=== PATIENT | male | born 1965 | race Caucasian/White ===

== ENCOUNTER 2016-11-21 15:37 | Emergency (ER) | payer BC, OTHER ==
[~2016-11-21] VITALS: Ht 177.8 cm; Wt 88.5 kg
[~2016-11-21 15:37] MED LIST changes: -ISOVUE-M 300 61% 15ML VIAL (Q9967) As Ordered ONE; -LIDOCAINE 1% SDV INJ 30 ML VIAL As Ordered ONE; -diazePAM 5 MG TAB As Ordered ONE; -methylPREDNISolone SUSP 40 MG/ML (DEPO-medrol) VIAL (J1030) As Ordered ONE; -oxyCODONE 5MG TAB As Ordered ONE
[2016-11-21] MEDS ORDERED: NITROGLYCERIN 0.4 MG SUBL TABLET As Ordered ONE (16:01)
[2016-11-21] MEDS ORDERED: ASPIRIN 81 MG CHEW TABLET As Ordered ONE (16:01)
[2016-11-21] MEDS ORDERED: ONDANSETRON 4MG/2ML VIAL (J2405) As Ordered ONE (16:15)
[2016-11-21 16:20] LABS: BASO # 0.1 K/mm3 (0.0-0.2); BASO % 1.1 % (0.0-1.0); EOS # 0.1 K/mm3 (0.0-0.50); EOS % 1.8 % (0.0-3.0); LARGE UNSTAINED CELL # 0.1 K/mm3 (0.0-0.4); LARGE UNSTAINED CELL % 1.3 % (0.0-4.0); LYMPH # 1.5 K/mm3 (1.5-4.5); LYMPH % 22.3 % (24.0-44.0); MEAN CORPUSCULAR HEMOGLOBIN 28.7 pg (27.0-33.0); MEAN CORPUSCULAR HGB CONC 34.2 g/dl (32.0-36.5); MEAN CORPUSCULAR VOLUME 83.8 fl (80.0-96.0); MONO # 0.3 K/mm3 (0.0-0.8); MONO % 4.2 % (0.0-5.0); NEUTROPHILS # 4.4 K/mm3 (1.8-7.7); NEUTROPHILS % 69.4 % (36.0-66.0); PLATELET COUNT, AUTOMATED 185 k/mm3 (150-450); RED CELL DISTRIBUTION WIDTH 13.1 % (11.5-14.5); WHITE BLOOD COUNT 6.3 K/mm3 (4.0-10.0)
--- NOTE | 2016-11-21 16:21 | REP ---
Clinical: Chest pain . Comparison: 11/27/2015 . Findings: The mediastinum and cardiac silhouette are stable and within normal limits for portable technique. The lung patel are clear without acute consolidation, effusion, or pneumothorax. Skeletal structures are intact. Impression: Normal portable chest x-ray Signed by Giovanni Key MD 11/21/2016 04:12 P
[2016-11-21 16:27] LABS: INR 0.94
[2016-11-21 16:39] LABS: ANION GAP 7 MEQ/L (8-16); BLOOD UREA NITROGEN 14 MG/DL (7-18); CALCIUM LEVEL 8.7 MG/DL (8.5-10.1); CARBON DIOXIDE LEVEL 30 MEQ/L (21-32); CHLORIDE LEVEL 102 MEQ/L (98-107); CREATININE FOR GFR 0.96 MG/DL (0.70-1.30); GLOMERULAR FILTRATION RATE > 60.0 (>56); GLUCOSE, FASTING 243 MG/DL (70-105); POTASSIUM SERUM 3.8 MEQ/L (3.5-5.1); SODIUM LEVEL 139 MEQ/L (136-145)
[2016-11-21] MEDS ORDERED: tiZANidine 4 MG TAB PO ONE (16:45)
[2016-11-21] MEDS ORDERED: tiZANidine 4 MG TAB As Ordered ONE (16:54)
--- NOTE | 2016-11-21 22:21 | EDDOCDS ---
Physician Documentation [facility] Name: Godfrey Lopez Age: 51 yrs Sex: Male : 1965 Arrival Date: 11/21/2016 Time: 15:37 Bed OBSERVATION Private MD: Nory Motley E Disposition: 11/21/16 21:41 Discharged to Home/Self Care. Impression: Chest pain, unspecified. - Condition is Stable. - Discharge Instructions: Nonspecific Chest Pain. - Medication Reconciliation, Local Pharmacy Hours form. - Follow up: Nory Motley; When: 4 - 5 days; Reason: Recheck today's complaints, Continuance of care. - Problem is an acute exacerbation. - Symptoms have improved. Historical: - Allergies: no known allergies; - Home Meds: 1. flecainide 50 mg Oral tab 1 tab every 12 hours 2. aspirin 81 mg Oral chew 1 tab once daily 3. bisoprolol fumarate 5 mg oral tab 1 tab nightly 4. Vitamin B-12 500 mcg Oral tab 500 mcg daily 5. Vitamin D Oral 5000 unit daily 6. Proscar 5 mg Oral tab 1 tab once daily 7. magnesium oxide 400 mg Oral tab daily 8. metformin 500 mg Oral tab 2 times per day 9. Prilosec 40 mg Oral cpDR 1 cap once daily 10. valsartan 80 mg oral cap nightly 11. citracal petites 2 tab nightly 12. multivitamin Oral tab 2 tab daily 13. Lipitor 20 mg Oral tab 1 tab nightly 14. gabapentin 300 mg Oral tab nightly 15. tizanidine 2 mg oral tab as needed 16. Percocet 5-325 mg Oral tab 1 tab every 4-6 hours 17. colchicine 0.6 mg Oral tab as needed 18. gabapentin 100 mg Oral cap 1 tab daily 19. citalopram 10 mg Oral tab 1 tab once daily - PMHx: Atrial Fib; Migraines; Guillain Sarah Ann Syndrome; Hypertension; GERD; Diabetes - NIDDM: controlled; - PSHx: Gastric Bypass; ORIF left arm; bilateral knees; Exploratory lap; - Social history: Smoking status: Patient states was never smoker of tobacco. No barriers to communication noted, The patient speaks fluent Persian. - Family history: Not pertinent. - : The pt / caregiver states he / she is not on anticoagulants. The pt / caregiver states he / she is not on anticoagulants. Home medication list is obtained from family members. - Exposure Risk Screening:: None identified. Vital Signs: 11/21 15:39 BP 188 / 106 LA Sitting (auto/lg); Pulse 78; Resp 18; Temp 96.7(O); Pulse Ox 99% ; cmb Weight 88.45 kg / 195 lbs (R); Height 5 ft. 10 in. (177.80 cm) (R); Pain 3/10; 15:39 BP 187 / 115 RA Sitting (auto/lg); cmb 15:52 BP 185 / 104 RA Sitting (man/reg); jrd 16:15 BP 145 / 82; Pulse 71; Pain 3/10; ld5 16:22 BP 137 / 91; Pulse 70; Resp 16; Pain 3/10; ld5 16:53 BP 132 / 94 (auto/); ld5 16:53 Pulse 60 MON; Pulse Ox 94% ; ld5 17:47 BP 121 / 61 (auto/); ld5 17:47 Pulse 60 MON; Pulse Ox 95% ; ld5 18:02 BP 105 / 59 (auto/); ld5 18:02 Pulse 58 MON; Pulse Ox 94% ; ld5 18:17 BP 109 / 62 (auto/); ld5 18:17 Pulse 60 MON; Pulse Ox 93% ; ld5 18:32 BP 100 / 63 (auto/); ld5 18:32 Pulse 58 MON; Pulse Ox 94% ; ld5 18:47 BP 103 / 57 (auto/); ld5 18:47 Pulse 58 MON; Pulse Ox 94% ; ld5 22:03 BP 163 / 71 RA Supine (auto/reg); Pulse 58 MON; Resp 18 S; Temp 97.4(O); Pulse Ox 96% cln on R/A; Pain 0/10; 15:39 Body Mass Index 27.98 (88.45 kg, 177.80 cm) cmb MDM: 15:56 Aspirin Chewable Tablet 324 mg PO once ordered. ke 15:56 NS 0.9% 1000 ml IV at 100 mL/hr continuous ordered. ke 15:56 Nitrostat 0.4 mg Sublingual every 5 minutes; hold if SBP<90mmHg.Document Pain Score ke Response to Each Dose x3 ordered. 15:56 Bricklayer/Pulse Ox/q 30 min VS ordered. ke 15:56 IV Saline Lock ordered. ke 15:56 Rhythm Strip to chart ordered. ke 15:56 Undress patient appropriately for examination ordered. ke 15:57 Basic Metabolic Profile Ordered. EDMS 15:57 CBC with Diff Ordered. EDMS 15:57 Cardiac Injury Profile Ordered. EDMS 15:57 Prothrombin Time Profile\E\INR Ordered. EDMS 15:57 Troponin Ordered. EDMS 15:57 portable chest Ordered. EDMS 15:59 ECG WITH READING ER PHYS+CARDIAG ordered. EDMS 16:26 tiZANidine 4 mg PO once ordered. ke 16:31 Accucheck ordered. ld5 16:31 Ondansetron 4 mg IVP once ordered. ld5 16:32 Fingerstick Blood Sugar Ordered. EDMS 17:10 Basic Metabolic Profile Reviewed. ke 17:10 CBC with Diff Reviewed. ke 17:10 Cardiac Injury Profile Reviewed. ke 17:10 Fingerstick Blood Sugar Reviewed. ke 17:10 Prothrombin Time Profile\E\INR Reviewed. ke 17:10 Troponin Reviewed. ke 17:10 portable chest Reviewed. ke 17:25 Repeat EKG (put time details section) ordered. ke 17:25 Redraw CIP &Troponin (put time in details section) ordered. ke 17:27 Repeat EKG (put time details section) complete. deg 17:27 Redraw CIP &Troponin (put time in details section) complete. deg 17:28 ECG WITH READING ER PHYS ordered. EDMS 17:29 CARDIAC MARKER PANEL Ordered. EDMS 18:06 Financial registration complete. [id number] 18:13 [facility] [place] was scanned into [employer] and attached to record. ks16 21:36 CARDIAC MARKER PANEL Reviewed. Point of Care Testing: Blood Glucose: 16:31 Blood Glucose: 223 mg/dL; ld5 Ranges: Administered Medications: 16:10 Drug: Aspirin 324 mg [aspirin 81 mg chewable tablet (4 tabs)] Route: PO; ld5 16:10 Drug: Nitrostat 0.4 mg [Nitrostat 0.4 mg sublingual tablet (1 tabs)] Route: Sublingual; ld5 16:15 Follow up: BP 145 / 82; Pulse 71 bpm; Pain 3/10 Adult; Response: No significant change. ld5 16:15 Drug: NS 0.9% 1000 ml [sodium chloride 0.9 % intravenous solution] Route: IV; Rate: 100 ld5 mL/hr; Site: right forearm; 16:16 Drug: Nitrostat 0.4 mg [Nitrostat 0.4 mg sublingual tablet (1 tabs)] Route: Sublingual; ld5 16:22 Follow up: BP 137 / 91; Pulse 70 bpm; Resp 16 bpm; Pain 3/10 Adult; Response: No ld5 significant change. 16:17 Drug: Ondansetron 4 mg [ondansetron HCl 2 mg/mL intravenous solution (2 mL)] Route: ld5 IVP; Site: right forearm; 19:56 Follow up: Response: No significant change. cf2 16:23 Drug: Nitrostat 0.4 mg [Nitrostat 0.4 mg sublingual tablet (1 tabs)] Route: Sublingual; ld5 17:01 Drug: tiZANidine 4 mg [tizanidine 4 mg tablet (1 tabs)] Route: PO; ld5 19:57 Follow up: Response: No significant change. cf2 Signatures: Dispatcher [employer] EDMS Ladan Diamond, Supervisor Show Operations Unit deg Joaquin Monreal, CORE WINDER MACHINE OPERATOR CORE WINDER MACHINE OPERATOR Nory Diamond,RN RN ld5 Jen Ruiz RN RN mk4 Romelia Muñoz, Reg Reg ks16 Dawna Otoole,RN RN cf2 The chart was reviewed and I authenticate all verbal orders and agree with the evaluation and treatment provided.Attachments: 18:13 [facility] Payment Agreement ks16 MTDD
--- NOTE | 2016-11-21 22:21 | EDDOCDS ---
Nurse's Notes [facility] Name: Godfrey Lopez Age: 51 yrs Sex: Male : 1965 Arrival Date: 11/21/2016 Time: 15:37 Bed OBSERVATION Private MD: Nory Motley E Diagnosis: Chest pain, unspecified Presentation: 11/21 15:45 Presenting complaint: Patient states: I" i guess my blood pressure is high tight chest mk4 and heavy, pt was just in pain clinic having an epidural and upon discharge he became semi responsive and tremor in leftb hand , hx andre barre when he gets fatigued he gets shaky. 15:47 Adult Sepsis Screening: The patient does not have new or worsening altered mentation. mk4 Patient's respiratory rate is less than 22. Systolic blood pressure is greater than 100. Patient has a qSOFA score of 0- Negative Sepsis Screen. Suicide/Homicide risk assessment- the patient denies having any suicidal and/or homicidal ideations and does not present with any other emotional, behavioral or mental health complaints. Status: Patient is not a financial services representative or dependent. Transition of care: patient was not received from another setting of care. Red Flag criteria, patient assessed and taken directly to a bed. 15:47 Acuity: BERNABE Level 2 mk4 15:47 Method Of Arrival: Wheelchair mk4 Triage Assessment: 16:02 General: Appears ill. HIV screening NA for this visit Offered previously. mk4 Historical: - Allergies: no known allergies; - Home Meds: 1. flecainide 50 mg Oral tab 1 tab every 12 hours 2. aspirin 81 mg Oral chew 1 tab once daily 3. bisoprolol fumarate 5 mg oral tab 1 tab nightly 4. Vitamin B-12 500 mcg Oral tab 500 mcg daily 5. Vitamin D Oral 5000 unit daily 6. Proscar 5 mg Oral tab 1 tab once daily 7. magnesium oxide 400 mg Oral tab daily 8. metformin 500 mg Oral tab 2 times per day 9. Prilosec 40 mg Oral cpDR 1 cap once daily 10. valsartan 80 mg oral cap nightly 11. citracal petites 2 tab nightly 12. multivitamin Oral tab 2 tab daily 13. Lipitor 20 mg Oral tab 1 tab nightly 14. gabapentin 300 mg Oral tab nightly 15. tizanidine 2 mg oral tab as needed 16. Percocet 5-325 mg Oral tab 1 tab every 4-6 hours 17. colchicine 0.6 mg Oral tab as needed 18. gabapentin 100 mg Oral cap 1 tab daily 19. citalopram 10 mg Oral tab 1 tab once daily - PMHx: Atrial Fib; Migraines; Guillain Browning Syndrome; Hypertension; GERD; Diabetes - NIDDM: controlled; - PSHx: Gastric Bypass; ORIF left arm; bilateral knees; Exploratory lap; - Social history: Smoking status: Patient states was never smoker of tobacco. No barriers to communication noted, The patient speaks fluent Khmer. - Family history: Not pertinent. - : The pt / caregiver states he / she is not on anticoagulants. The pt / caregiver states he / she is not on anticoagulants. Home medication list is obtained from family members. - Exposure Risk Screening:: None identified. Screenin:18 Screening information is obtained from the patient. Fall risk: No risks identified. cf2 Assistance ADL's: requires no assistance with activities of daily living. Abuse/DV Screen: The patient / caregiver reports he/she is: not in a situation that causes fear, pain or injury. Nutritional screening: No deficits noted. Advance Directives: Further advance directive information is declined. home support is adequate. Assessment: 16:00 General: Appears in no apparent distress, Behavior is cooperative, drowsy. Pain: ld5 Location: head and anterior aspect of left upper chest Pain currently is 3 out of 10 on a pain scale. Pain does not radiate. 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 Neurological: Level of Consciousness is lethargic, obeys commands, Oriented to person, place, time, Inspector Repairer are weak on left Weakness in left hand's) leg(s) foot/feet Speech is slurred. Respiratory: Airway is patent Respiratory effort is even, unlabored, Denies cough, shortness of breath. GI: Abdomen is non- distended Bowel sounds present X 4 quads. Denies nausea, vomiting. Derm: Skin is intact, Skin is dry, Skin is normal, Skin temperature is warm. 16:20 General: Pt states "I don't feel well. I'm going to be sick." Emesis bag provided. ld5 Provider made aware and pt medicated. Supportive daughter at bedside. Call hugo within reach. Will continue to monitor. 16:25 General: Daughter states that when pt presents with left-sided weakness it has been ld5 because his blood glucose is low or he is having a migraine headache. Pt reports a slight headache. Daughter reports pt usually takes 4 mg of Tizanidine at this time so symptoms do not get worse. Discussed with provider. 16:30 General: After 3rd nitro pt reports decreased pain. BP steadily decreasing as well. Pt ld5 denies any needs. Fluids infusing. Will continue to monitor. 17:25 General: Pt laying in bed. Remains drowsy. Family at bedside. Provider it to speak with ld5 pt and family regarding repeat blood work at 2100. Pt and family deny any needs at this time. Call hugo within reach. Will continue to monitor. 18:05 General: Appears in no apparent distress. Neurological: Level of Consciousness is ld5 awake, obeys commands. Respiratory: Airway is patent Respiratory effort is even, unlabored. 18:51 General: Pt laying comfortably in bed watching TV. Reports "feeling better". Family ld5 members remain at bedside. Aware of plan for 2100 repeats. Will continue to monitor. 22:18 Reassessment: Patient appears in no apparent distress at this time. Patient denies pain cf2 at this time. Patient states feeling better. Patient states symptoms have improved. Vital Signs: 15:39 BP 188 / 106 LA Sitting (auto/lg); Pulse 78; Resp 18; Temp 96.7(O); Pulse Ox 99% ; cmb Weight 88.45 kg (R); Height 5 ft. 10 in. (177.80 cm) (R); Pain 3/10; 15:39 BP 187 / 115 RA Sitting (auto/lg); cmb 15:52 BP 185 / 104 RA Sitting (man/reg); jrd 16:15 BP 145 / 82; Pulse 71; Pain 3/10; ld5 16:22 BP 137 / 91; Pulse 70; Resp 16; Pain 3/10; ld5 16:53 BP 132 / 94 (auto/); ld5 16:53 Pulse 60 MON; Pulse Ox 94% ; ld5 17:47 BP 121 / 61 (auto/); ld5 17:47 Pulse 60 MON; Pulse Ox 95% ; ld5 18:02 BP 105 / 59 (auto/); ld5 18:02 Pulse 58 MON; Pulse Ox 94% ; ld5 18:17 BP 109 / 62 (auto/); ld5 18:17 Pulse 60 MON; Pulse Ox 93% ; ld5 18:32 BP 100 / 63 (auto/); ld5 18:32 Pulse 58 MON; Pulse Ox 94% ; ld5 18:47 BP 103 / 57 (auto/); ld5 18:47 Pulse 58 MON; Pulse Ox 94% ; ld5 22:03 BP 163 / 71 RA Supine (auto/reg); Pulse 58 MON; Resp 18 S; Temp 97.4(O); Pulse Ox 96% cln on R/A; Pain 0/10; 15:39 Body Mass Index 27.98 (88.45 kg, 177.80 cm) cmb Vitals: 15:39 Log In Time: November 21, 2016 at 15:37. cmb ED Course: 15:39 Patient visited by Chiquita Freeman. cmb 15:39 Nory Motley is Private Physician. cmb 15:39 Patient moved to Waiting cmb 15:43 RN notified that patient meets Red Flag criteria. cmb 15:43 Patient moved to Pre RCE cmb 15:47 Patient moved to 5 js13 15:49 Triage Initiated mk4 15:50 [facility] ke 15:50 Patient visited by Joaquin Monreal FNP. ke 15:50 Patient visited by Joaquin Monreal FNP. ke 15:52 Patient visited by Roby Naqvi PCA. jrd 16:05 Patient visited by Khalida Silva. dem1 16:05 EKG done. (by ED staff). Reviewed by Joaquin RESENDIZ. dem1 16:32 Patient visited by Nory Sanchez,PRICE. ld5 16:34 Fingerstick Blood Sugar Sent. ld5 16:45 portable chest Returned. EDMS 17:10 Patient visited by Joaquin Monreal FNP. ke 17:16 Patient visited by Nory Sanchez,RN. ld5 17:26 Patient visited by Nory Sanchez,RN. ld5 17:58 Patient visited by Nory Sanchez,RN. ld5 18:13 [facility] Payment Agreement was scanned into [employer] and attached to record. ks16 18:29 Patient visited by Joaquin Monreal FNP. ke 18:52 Patient visited by Nory Sanchez,PRICE. ld5 18:52 Patient visited by Nory Sanchez RN. ld5 19:02 Patient visited by Teddy Castro PCA. kb5 19:08 Dawna Otoole,PRICE is Primary Nurse. cf2 19:08 Patient visited by Dawna Otoole,PRICE. cf2 19:42 Patient visited by Joaquin Monreal FNP. ke 20:06 Patient visited by Joaquin Monreal FNP. ke 20:15 Patient visited by Dawna Otoole RN. cf2 20:45 Patient visited by Joaquin Monreal FNP. ke 21:02 Patient moved to OBSERVATION nov 21:03 CARDIAC MARKER PANEL Sent. ls3 21:03 EKG done. (by ED staff). Reviewed by Joaquin RESENDIZ. ls3 21:41 Nory Motley is Referral Physician. ke 21:56 Patient visited by Teddy Castro PCA. kb5 22:04 Patient visited by Amanda Batista PCA. cln 22:18 Patient visited by Dawna Otoole RN. cf2 22:18 The patient / caregiver is instructed regarding the plan of care and ED course. Patient cf2 has correct armband on for positive identification. Placed in gown. Bed in low position. Call light in reach. Side rails up X 1. Side rails up X2. Adult w/ patient. telemetry monitor on. Pulse ox on. NIBP on. 22:18 Discontinued lock. No procedures done that require assistance. cf2 22:20 Chance Shaffer DO is Attending Physician. cf2 Administered Medications: 16:10 Drug: Aspirin 324 mg [aspirin 81 mg chewable tablet (4 tabs)] Route: PO; ld5 16:10 Drug: Nitrostat 0.4 mg [Nitrostat 0.4 mg sublingual tablet (1 tabs)] Route: Sublingual; ld5 16:15 Follow up: BP 145 / 82; Pulse 71 bpm; Pain 3/10 Adult; Response: No significant change. ld5 16:15 Drug: NS 0.9% 1000 ml [sodium chloride 0.9 % intravenous solution] Route: IV; Rate: 100 ld5 mL/hr; Site: right forearm; 16:16 Drug: Nitrostat 0.4 mg [Nitrostat 0.4 mg sublingual tablet (1 tabs)] Route: Sublingual; ld5 16:22 Follow up: BP 137 / 91; Pulse 70 bpm; Resp 16 bpm; Pain 3/10 Adult; Response: No ld5 significant change. 16:17 Drug: Ondansetron 4 mg [ondansetron HCl 2 mg/mL intravenous solution (2 mL)] Route: ld5 IVP; Site: right forearm; 19:56 Follow up: Response: No significant change. cf2 16:23 Drug: Nitrostat 0.4 mg [Nitrostat 0.4 mg sublingual tablet (1 tabs)] Route: Sublingual; ld5 17:01 Drug: tiZANidine 4 mg [tizanidine 4 mg tablet (1 tabs)] Route: PO; ld5 19:57 Follow up: Response: No significant change. cf2 Point of Care Testing: Blood Glucose: 16:31 Blood Glucose: 223 mg/dL; ld5 Ranges: Order Results: Lab Order: Basic Metabolic Profile; SPEC'M 11/21/16 15:58 Test: GLUCOSE, FASTING; Value: 243; Range: 70-105; Abnormal: Above high normal; Units: MG/DL; Status: F Test: BLOOD UREA NITROGEN; Value: 14; Range: 7-18; Units: MG/DL; Status: F Test: CREATININE FOR GFR; Value: 0.96; Range: 0.70-1.30; Units: MG/DL; Status: F Test: GLOMERULAR FILTRATION RATE; Value: > 60.0; Range: >56; Status: F Test: SODIUM LEVEL; Value: 139; Range: 136-145; Units: MEQ/L; Status: F Test: POTASSIUM SERUM; Value: 3.8; Range: 3.5-5.1; Units: MEQ/L; Status: F Test: CHLORIDE LEVEL; Value: 102; Range: 98-107; Units: MEQ/L; Status: F Test: CARBON DIOXIDE LEVEL; Value: 30; Range: 21-32; Units: MEQ/L; Status: F Test: ANION GAP; Value: 7; Range: 8-16; Abnormal: Below low normal; Units: MEQ/L; Status: F Test: CALCIUM LEVEL; Value: 8.7; Range: 8.5-10.1; Units: MG/DL; Status: F Test Note: ; Units are mL/min/1.73 m2 Chronic Kidney Disease Staging per NKF: Stage I & II GFR >=60 Normal to Mildly Decreased Stage III GFR 30-59 Moderately Decreased Stage IV GFR 15-29 Severely Decreased Stage V GFR <15 Very Little GFR Left ESRD GFR <15 on ADULT CAREGIVER Lab Order: CBC with Diff; SPEC'M 11/21/16 15:58 Test: WHITE BLOOD COUNT; Value: 6.3; Range: 4.0-10.0; Units: K/mm3; Status: F Test: RED BLOOD COUNT; Value: 5.18; Range: 4.30-6.10; Units: M/mm3; Status: F Test: HEMOGLOBIN; Value: 14.9; Range: 14.0-18.0; Units: g/dl; Status: F Test: HEMATOCRIT; Value: 43.5; Range: 42.0-52.0; Units: %; Status: F Test: MEAN CORPUSCULAR VOLUME; Value: 83.8; Range: 80.0-96.0; Units: fl; Status: F Test: MEAN CORPUSCULAR HEMOGLOBIN; Value: 28.7; Range: 27.0-33.0; Units: pg; Status: F Test: MEAN CORPUSCULAR HGB CONC; Value: 34.2; Range: 32.0-36.5; Units: g/dl; Status: F Test: RED CELL DISTRIBUTION WIDTH; Value: 13.1; Range: 11.5-14.5; Units: %; Status: F Test: PLATELET COUNT, AUTOMATED; Value: 185; Range: 150-450; Units: k/mm3; Status: F Test: NEUTROPHILS %; Value: 69.4; Range: 36.0-66.0; Abnormal: Above high normal; Units: %; Status: F Test: LYMPH %; Value: 22.3; Range: 24.0-44.0; Abnormal: Below low normal; Units: %; Status: F Test: MONO %; Value: 4.2; Range: 0.0-5.0; Units: %; Status: F Test: EOS %; Value: 1.8; Range: 0.0-3.0; Units: %; Status: F Test: BASO %; Value: 1.1; Range: 0.0-1.0; Abnormal: Above high normal; Units: %; Status: F Test: LARGE UNSTAINED CELL %; Value: 1.3; Range: 0.0-4.0; Units: %; Status: F Test: NEUTROPHILS #; Value: 4.4; Range: 1.8-7.7; Units: K/mm3; Status: F Test: LYMPH #; Value: 1.5; Range: 1.5-4.5; Units: K/mm3; Status: F Test: MONO #; Value: 0.3; Range: 0.0-0.8; Units: K/mm3; Status: F Test: EOS #; Value: 0.1; Range: 0.0-0.50; Units: K/mm3; Status: F Test: BASO #; Value: 0.1; Range: 0.0-0.2; Units: K/mm3; Status: F Test: LARGE UNSTAINED CELL #; Value: 0.1; Range: 0.0-0.4; Units: K/mm3; Status: F Lab Order: Cardiac Injury Profile; SPEC'M 11/21/16 15:58 Test: CPK CREATINE PHOSPHOKINASE; Value: 36; Range: 39-308; Abnormal: Below low normal; Units: U/L; Status: F Test: CK-MB VALUE MASS; Value: 1.0; Range: 0.0-3.6; Units: NG/ML; Status: F Test: MB/CK RELATIVE INDEX; Value: 2.77; Range: < OR =4; Status: F Test Note: ; DIAGNOSIS CRITERIA MMB ng/ml Relative Index (RI) NON-AMI < or = 5 N/A SALEH ZONE > 5 < or = 4 AMI > 5 > 4 Lab Order: Prothrombin Time Profile\\E\\INR; SPEC'M 11/21/16 15:58 Test: PROTHROMBIN TIME; Value: 12.7; Range: 12.3-14.5; Units: SECONDS; Status: F Test: INR; Value: 0.94; Status: F Test Note: ; THERAPUTIC HUMAN INR VALUES INDICATIONS NORMAL RANGES PROPHYLAXIS/TREATMENT OF: VENOUS THROMBOSIS 2.0-3.0 PULMONARY EMBOLISM 2.0-3.0 PREVENTION OF SYSTEMIC EMBOLISM FROM: TISSUE HEART VALVES 2.0-3.0 ACUTE MYOCARDIAL INFARCTION 2.0-3.0 VALVULAR HEART DISEASE 2.0-3.0 ATRIAL FIBRILLATION 2.0-3.0 MECHANICAL VALVES(HIGH RISK) 2.5-3.5 RECURRENT MYOCARDIAL INFARCTION 2.5-3.5 Lab Order: Troponin; [facility] 11/21/16 15:58 Test: TROPONIN I; Value: < 0.02; Range: < 0.10; Units: NG/ML; Status: F Test Note: ; Troponin I Reference Interval for [employer] LOCI: 99th Percentile= 0.00-0.045 ng/ml Risk Stratification: <= 0.10 ng/ml Decreased Risk for Adverse Clinical Events. 0.10-1.50 ng/ml Increased Risk for Adverse Clinical Events. Evaluation of additional criterion and/or repeat testing in 2-6 hours is suggested to rule out myocardial damage. >= 1.50 ng/ml Indicative of Myocardial Injury. Lab Order: Fingerstick Blood Sugar; [facility] 11/21/16 16:22 Test: BEDSIDE GLUCOSE; Value: 223; Range: 70-105; Abnormal: Above high normal; Units: MG/DL; Status: F Lab Order: CARDIAC MARKER PANEL; [facility] 11/21/16 20:57 Test: CPK CREATINE PHOSPHOKINASE; Value: 29; Range: 39-308; Abnormal: Below low normal; Units: U/L; Status: F Test: CK-MB VALUE MASS; Value: 1.4; Range: 0.0-3.6; Units: NG/ML; Status: F Test: MB/CK RELATIVE INDEX; Value: 4.82; Range: < OR =4; Abnormal: Above high normal; Status: F Test: TROPONIN I; Value: < 0.02; Range: < 0.10; Units: NG/ML; Status: F Test Note: ; DIAGNOSIS CRITERIA MMB ng/ml Relative Index (RI) NON-AMI < or = 5 N/A SALEH ZONE > 5 < or = 4 AMI > 5 > 4 Radiology Order: portable chest Test: portable chest REASON FOR EXAMINATION: Chest Pain; Clinical: Chest pain .; ; Comparison: 11/27/2015 .; ; Findings:; The mediastinum and cardiac silhouette are stable and within normal limits for; portable technique. The lung patel are clear without acute consolidation,; effusion, or pneumothorax. Skeletal structures are intact.; ; Impression:; Normal portable chest x-ray; ; ; Signed by; Giovanni Key MD 11/21/2016 04:12 P; Outcome: 21:41 Discharge ordered by Provider. ke 22:18 Discharge Assessment: Patient awake, alert and oriented x 3. No cognitive and/or cf2 functional deficits noted. Patient verbalized understanding of disposition instructions. Patient awake and alert. patient administered narcotics - no. The following High Risk Discharge criteria are identified: None. Discharged to home ambulatory. Condition: stable Condition: improved. No special radiology studies were completed. Property :Personal belongings accompany Pt. 22:20 Patient left the ED. cf2 Signatures: Dispatcher [employer] EDMS Chandrika Roman, RN RN Joaquin Goodwin, FLIGHT DATA TECHNICIAN FLIGHT DATA TECHNICIAN Teddy Villasenor, NEONATAL SOCIAL WORKER NEONATAL SOCIAL WORKER kb5 Nory Sanchez,RN RN ld5 Khalida Silva JenniferRN RN [id number] Chiquita Freeman Margaret RN RN mk4 Roby Naqvi, NEONATAL SOCIAL WORKER NEONATAL SOCIAL WORKER Sarah Hussein, NEONATAL SOCIAL WORKER NEONATAL SOCIAL WORKER [email or web address] Romelia Muñoz, Reg Reg [email or web address] Amanda Batista, NEONATAL SOCIAL WORKER NEONATAL SOCIAL WORKER marilynn Dawna Otoole,RN RN cf2 Corrections: (The following items were deleted from the chart) 15:49 15:45 Presenting complaint: Patient states: I guess blood pressure is high tight chest mk4 and heavy mk4 MTDD
--- NOTE | 2016-11-22 08:28 | ECGEPIP ---
Stationary ECG Study [facility] - ED Test Date: 2016-11-21 Pat Name: HAI DAIGLE Department: Room: - Gender: M Nurse Monitoring: arturo : 1965 Requested By: MAI RESENDIZ Order Number: [id number] Reading MD: Jarrod Adair Measurements Intervals [place] Rate: 65 P: 71 TN: 159 QRS: 25 QRSD: 96 T: 35 QT: 413 QTc: 430 Interpretive Statements SINUS RHYTHM PRIOR INFERIOR INFARCT Electronically Signed On 11-22-2016 8:27:49 EST by Jarrod Adair
--- NOTE | 2016-11-22 08:37 | ECGEPIP ---
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
--- NOTE | 2016-11-23 23:21 | EDDOCDS ---
Physician Documentation [facility] Name: Godfrey Lopez Age: 51 yrs Sex: Male : 1965 Arrival Date: 11/21/2016 Time: 15:37 Bed OBSERVATION Private MD: Nory Motley E Disposition: 11/21/16 21:41 Discharged to Home/Self Care. Impression: Chest pain, unspecified. - Condition is Stable. - Discharge Instructions: Nonspecific Chest Pain. - Medication Reconciliation, Local Pharmacy Hours form. - Follow up: Nory Motley; When: 4 - 5 days; Reason: Recheck today's complaints, Continuance of care. - Problem is an acute exacerbation. - Symptoms have improved. Historical: - Allergies: no known allergies; - Home Meds: 1. flecainide 50 mg Oral tab 1 tab every 12 hours 2. aspirin 81 mg Oral chew 1 tab once daily 3. bisoprolol fumarate 5 mg oral tab 1 tab nightly 4. Vitamin B-12 500 mcg Oral tab 500 mcg daily 5. Vitamin D Oral 5000 unit daily 6. Proscar 5 mg Oral tab 1 tab once daily 7. magnesium oxide 400 mg Oral tab daily 8. metformin 500 mg Oral tab 2 times per day 9. Prilosec 40 mg Oral cpDR 1 cap once daily 10. valsartan 80 mg oral cap nightly 11. citracal petites 2 tab nightly 12. multivitamin Oral tab 2 tab daily 13. Lipitor 20 mg Oral tab 1 tab nightly 14. gabapentin 300 mg Oral tab nightly 15. tizanidine 2 mg oral tab as needed 16. Percocet 5-325 mg Oral tab 1 tab every 4-6 hours 17. colchicine 0.6 mg Oral tab as needed 18. gabapentin 100 mg Oral cap 1 tab daily 19. citalopram 10 mg Oral tab 1 tab once daily - PMHx: Atrial Fib; Migraines; Guillain Helper Syndrome; Hypertension; GERD; Diabetes - NIDDM: controlled; - PSHx: Gastric Bypass; ORIF left arm; bilateral knees; Exploratory lap; - Social history: Smoking status: Patient states was never smoker of tobacco. No barriers to communication noted, The patient speaks fluent [place]ian. - Family history: Not pertinent. - : The pt / caregiver states he / she is not on anticoagulants. The pt / caregiver states he / she is not on anticoagulants. Home medication list is obtained from family members. - Exposure Risk Screening:: None identified. Vital Signs: 11/21 15:39 BP 188 / 106 LA Sitting (auto/lg); Pulse 78; Resp 18; Temp 96.7(O); Pulse Ox 99% ; cmb Weight 88.45 kg / 195 lbs (R); Height 5 ft. 10 in. (177.80 cm) (R); Pain 3/10; 15:39 BP 187 / 115 RA Sitting (auto/lg); cmb 15:52 BP 185 / 104 RA Sitting (man/reg); jrd 16:15 BP 145 / 82; Pulse 71; Pain 3/10; ld5 16:22 BP 137 / 91; Pulse 70; Resp 16; Pain 3/10; ld5 16:53 BP 132 / 94 (auto/); ld5 16:53 Pulse 60 MON; Pulse Ox 94% ; ld5 17:47 BP 121 / 61 (auto/); ld5 17:47 Pulse 60 MON; Pulse Ox 95% ; ld5 18:02 BP 105 / 59 (auto/); ld5 18:02 Pulse 58 MON; Pulse Ox 94% ; ld5 18:17 BP 109 / 62 (auto/); ld5 18:17 Pulse 60 MON; Pulse Ox 93% ; ld5 18:32 BP 100 / 63 (auto/); ld5 18:32 Pulse 58 MON; Pulse Ox 94% ; ld5 18:47 BP 103 / 57 (auto/); ld5 18:47 Pulse 58 MON; Pulse Ox 94% ; ld5 22:03 BP 163 / 71 RA Supine (auto/reg); Pulse 58 MON; Resp 18 S; Temp 97.4(O); Pulse Ox 96% cln on R/A; Pain 0/10; 15:39 Body Mass Index 27.98 (88.45 kg, 177.80 cm) cmb MDM: 15:56 Aspirin Chewable Tablet 324 mg PO once ordered. ke 15:56 NS 0.9% 1000 ml IV at 100 mL/hr continuous ordered. ke 15:56 Nitrostat 0.4 mg Sublingual every 5 minutes; hold if SBP<90mmHg.Document Pain Score ke Response to Each Dose x3 ordered. 15:56 Maritime Officer/Pulse Ox/q 30 min VS ordered. ke 15:56 IV Saline Lock ordered. ke 15:56 Rhythm Strip to chart ordered. ke 15:56 Undress patient appropriately for examination ordered. ke 15:57 Basic Metabolic Profile Ordered. EDMS 15:57 CBC with Diff Ordered. EDMS 15:57 Cardiac Injury Profile Ordered. EDMS 15:57 Prothrombin Time Profile\E\INR Ordered. EDMS 15:57 Troponin Ordered. EDMS 15:57 portable chest Ordered. EDMS 15:59 ECG WITH READING ER PHYS+CARDIAG ordered. EDMS 16:26 tiZANidine 4 mg PO once ordered. ke 16:31 Accucheck ordered. ld5 16:31 Ondansetron 4 mg IVP once ordered. ld5 16:32 Fingerstick Blood Sugar Ordered. EDMS 17:10 Basic Metabolic Profile Reviewed. ke 17:10 CBC with Diff Reviewed. ke 17:10 Cardiac Injury Profile Reviewed. ke 17:10 Fingerstick Blood Sugar Reviewed. ke 17:10 Prothrombin Time Profile\E\INR Reviewed. ke 17:10 Troponin Reviewed. ke 17:10 portable chest Reviewed. ke 17:25 Repeat EKG (put time details section) ordered. ke 17:25 Redraw CIP &Troponin (put time in details section) ordered. ke 17:27 Repeat EKG (put time details section) complete. deg 17:27 Redraw CIP &Troponin (put time in details section) complete. deg 17:28 ECG WITH READING ER PHYS ordered. EDMS 17:29 CARDIAC MARKER PANEL Ordered. EDMS 18:06 Financial registration complete. [email or web address] 18:13 [facility] Payment Agreement was scanned into [employer] and attached to record. [email or web address] 21:36 CARDIAC MARKER PANEL Reviewed. ke 11/22 10:12 T-Sheet-- Draft Copy was scanned into [employer] and attached to record. gb 10:13 ECG/EKG was scanned into [employer] and attached to record. gb Point of Care Testing: Blood Glucose: 11/21 16:31 Blood Glucose: 223 mg/dL; ld5 Ranges: Administered Medications: 16:10 Drug: Aspirin 324 mg [aspirin 81 mg chewable tablet (4 tabs)] Route: PO; ld5 16:10 Drug: Nitrostat 0.4 mg [Nitrostat 0.4 mg sublingual tablet (1 tabs)] Route: Sublingual; ld5 16:15 Follow up: BP 145 / 82; Pulse 71 bpm; Pain 3/10 Adult; Response: No significant change. ld5 16:15 Drug: NS 0.9% 1000 ml [sodium chloride 0.9 % intravenous solution] Route: IV; Rate: 100 ld5 mL/hr; Site: right forearm; 16:16 Drug: Nitrostat 0.4 mg [Nitrostat 0.4 mg sublingual tablet (1 tabs)] Route: Sublingual; ld5 16:22 Follow up: BP 137 / 91; Pulse 70 bpm; Resp 16 bpm; Pain 3/10 Adult; Response: No ld5 significant change. 16:17 Drug: Ondansetron 4 mg [ondansetron HCl 2 mg/mL intravenous solution (2 mL)] Route: ld5 IVP; Site: right forearm; 19:56 Follow up: Response: No significant change. cf2 16:23 Drug: Nitrostat 0.4 mg [Nitrostat 0.4 mg sublingual tablet (1 tabs)] Route: Sublingual; ld5 17:01 Drug: tiZANidine 4 mg [tizanidine 4 mg tablet (1 tabs)] Route: PO; ld5 19:57 Follow up: Response: No significant change. cf2 Signatures: Dispatcher [employer] EDMS Ladan Diamond, Factory Assembler Unit deg Eunice Beavers, Reg Reg gb Joaquin Monreal, FRETTED STRING INSTRUMENT REPAIRER FRETTED STRING INSTRUMENT REPAIRER Nory Diamond RN RN ld5 Jen Ruiz RN RN mk4 Romelia Muñoz, Reg Reg ks16 Dawna Otoole,RN RN cf2 The chart was reviewed and I authenticate all verbal orders and agree with the evaluation and treatment provided.Attachments: 18:13 [facility] Payment Agreement [email or web address] 11/22 10:12 T-Sheet-- Draft Copy gb 10:13 ECG/EKG gb Chart Complete MTDD
--- NOTE | 2016-11-23 23:21 | EDDOCDS ---
Physician Documentation [facility] Name: Godfrey Lopez Age: 51 yrs Sex: Male : 1965 Arrival Date: 11/21/2016 Time: 15:37 Bed OBSERVATION Private MD: Nory Motley E Disposition: 11/21/16 21:41 Discharged to Home/Self Care. Impression: Chest pain, unspecified. - Condition is Stable. - Discharge Instructions: Nonspecific Chest Pain. - Medication Reconciliation, Local Pharmacy Hours form. - Follow up: Nory Motley; When: 4 - 5 days; Reason: Recheck today's complaints, Continuance of care. - Problem is an acute exacerbation. - Symptoms have improved. Historical: - Allergies: no known allergies; - Home Meds: 1. flecainide 50 mg Oral tab 1 tab every 12 hours 2. aspirin 81 mg Oral chew 1 tab once daily 3. bisoprolol fumarate 5 mg oral tab 1 tab nightly 4. Vitamin B-12 500 mcg Oral tab 500 mcg daily 5. Vitamin D Oral 5000 unit daily 6. Proscar 5 mg Oral tab 1 tab once daily 7. magnesium oxide 400 mg Oral tab daily 8. metformin 500 mg Oral tab 2 times per day 9. Prilosec 40 mg Oral cpDR 1 cap once daily 10. valsartan 80 mg oral cap nightly 11. citracal petites 2 tab nightly 12. multivitamin Oral tab 2 tab daily 13. Lipitor 20 mg Oral tab 1 tab nightly 14. gabapentin 300 mg Oral tab nightly 15. tizanidine 2 mg oral tab as needed 16. Percocet 5-325 mg Oral tab 1 tab every 4-6 hours 17. colchicine 0.6 mg Oral tab as needed 18. gabapentin 100 mg Oral cap 1 tab daily 19. citalopram 10 mg Oral tab 1 tab once daily - PMHx: Atrial Fib; Migraines; Guillain [place] Syndrome; Hypertension; GERD; Diabetes - NIDDM: controlled; - PSHx: Gastric Bypass; ORIF left arm; bilateral knees; Exploratory lap; - Social history: Smoking status: Patient states was never smoker of tobacco. No barriers to communication noted, The patient speaks fluent Chinese. - Family history: Not pertinent. - : The pt / caregiver states he / she is not on anticoagulants. The pt / caregiver states he / she is not on anticoagulants. Home medication list is obtained from family members. - Exposure Risk Screening:: None identified. Vital Signs: 11/21 15:39 BP 188 / 106 LA Sitting (auto/lg); Pulse 78; Resp 18; Temp 96.7(O); Pulse Ox 99% ; cmb Weight 88.45 kg / 195 lbs (R); Height 5 ft. 10 in. (177.80 cm) (R); Pain 3/10; 15:39 BP 187 / 115 RA Sitting (auto/lg); cmb 15:52 BP 185 / 104 RA Sitting (man/reg); jrd 16:15 BP 145 / 82; Pulse 71; Pain 3/10; ld5 16:22 BP 137 / 91; Pulse 70; Resp 16; Pain 3/10; ld5 16:53 BP 132 / 94 (auto/); ld5 16:53 Pulse 60 MON; Pulse Ox 94% ; ld5 17:47 BP 121 / 61 (auto/); ld5 17:47 Pulse 60 MON; Pulse Ox 95% ; ld5 18:02 BP 105 / 59 (auto/); ld5 18:02 Pulse 58 MON; Pulse Ox 94% ; ld5 18:17 BP 109 / 62 (auto/); ld5 18:17 Pulse 60 MON; Pulse Ox 93% ; ld5 18:32 BP 100 / 63 (auto/); ld5 18:32 Pulse 58 MON; Pulse Ox 94% ; ld5 18:47 BP 103 / 57 (auto/); ld5 18:47 Pulse 58 MON; Pulse Ox 94% ; ld5 22:03 BP 163 / 71 RA Supine (auto/reg); Pulse 58 MON; Resp 18 S; Temp 97.4(O); Pulse Ox 96% cln on R/A; Pain 0/10; 15:39 Body Mass Index 27.98 (88.45 kg, 177.80 cm) cmb MDM: 15:56 Aspirin Chewable Tablet 324 mg PO once ordered. ke 15:56 NS 0.9% 1000 ml IV at 100 mL/hr continuous ordered. ke 15:56 Nitrostat 0.4 mg Sublingual every 5 minutes; hold if SBP<90mmHg.Document Pain Score ke Response to Each Dose x3 ordered. 15:56 Field Superintendent/Pulse Ox/q 30 min VS ordered. ke 15:56 IV Saline Lock ordered. ke 15:56 Rhythm Strip to chart ordered. ke 15:56 Undress patient appropriately for examination ordered. ke 15:57 Basic Metabolic Profile Ordered. EDMS 15:57 CBC with Diff Ordered. EDMS 15:57 Cardiac Injury Profile Ordered. EDMS 15:57 Prothrombin Time Profile\E\INR Ordered. EDMS 15:57 Troponin Ordered. EDMS 15:57 portable chest Ordered. EDMS 15:59 ECG WITH READING ER PHYS+CARDIAG ordered. EDMS 16:26 tiZANidine 4 mg PO once ordered. ke 16:31 Accucheck ordered. ld5 16:31 Ondansetron 4 mg IVP once ordered. ld5 16:32 Fingerstick Blood Sugar Ordered. EDMS 17:10 Basic Metabolic Profile Reviewed. ke 17:10 CBC with Diff Reviewed. ke 17:10 Cardiac Injury Profile Reviewed. ke 17:10 Fingerstick Blood Sugar Reviewed. ke 17:10 Prothrombin Time Profile\E\INR Reviewed. ke 17:10 Troponin Reviewed. ke 17:10 portable chest Reviewed. ke 17:25 Repeat EKG (put time details section) ordered. ke 17:25 Redraw CIP &Troponin (put time in details section) ordered. ke 17:27 Repeat EKG (put time details section) complete. deg 17:27 Redraw CIP &Troponin (put time in details section) complete. deg 17:28 ECG WITH READING ER PHYS ordered. EDMS 17:29 CARDIAC MARKER PANEL Ordered. EDMS 18:06 Financial registration complete. [email or web address] 18:13 [facility] Payment Agreement was scanned into [employer] and attached to record. [email or web address] 21:36 CARDIAC MARKER PANEL Reviewed. ke 11/22 10:12 T-Sheet-- Draft Copy was scanned into [employer] and attached to record. gb 10:13 ECG/EKG was scanned into [employer] and attached to record. gb Point of Care Testing: Blood Glucose: 11/21 16:31 Blood Glucose: 223 mg/dL; ld5 Ranges: Administered Medications: 16:10 Drug: Aspirin 324 mg [aspirin 81 mg chewable tablet (4 tabs)] Route: PO; ld5 16:10 Drug: Nitrostat 0.4 mg [Nitrostat 0.4 mg sublingual tablet (1 tabs)] Route: Sublingual; ld5 16:15 Follow up: BP 145 / 82; Pulse 71 bpm; Pain 3/10 Adult; Response: No significant change. ld5 16:15 Drug: NS 0.9% 1000 ml [sodium chloride 0.9 % intravenous solution] Route: IV; Rate: 100 ld5 mL/hr; Site: right forearm; 16:16 Drug: Nitrostat 0.4 mg [Nitrostat 0.4 mg sublingual tablet (1 tabs)] Route: Sublingual; ld5 16:22 Follow up: BP 137 / 91; Pulse 70 bpm; Resp 16 bpm; Pain 3/10 Adult; Response: No ld5 significant change. 16:17 Drug: Ondansetron 4 mg [ondansetron HCl 2 mg/mL intravenous solution (2 mL)] Route: ld5 IVP; Site: right forearm; 19:56 Follow up: Response: No significant change. cf2 16:23 Drug: Nitrostat 0.4 mg [Nitrostat 0.4 mg sublingual tablet (1 tabs)] Route: Sublingual; ld5 17:01 Drug: tiZANidine 4 mg [tizanidine 4 mg tablet (1 tabs)] Route: PO; ld5 19:57 Follow up: Response: No significant change. cf2 Signatures: Dispatcher [employer] EDMS Ladan Diamond, Bias Machine Operator Helper Unit deg Eunice Beavers, Reg Reg gb Joaquin Monreal, FLOWER GROWER FLOWER GROWER Nory Diamond RN RN ld5 Jen Ruiz RN RN mk4 Romelia Muñoz, Reg Reg ks16 Dawna Otoole,RN RN cf2 The chart was reviewed and I authenticate all verbal orders and agree with the evaluation and treatment provided.Attachments: 18:13 [facility] Payment Agreement [email or web address] 11/22 10:12 T-Sheet-- Draft Copy gb 10:13 ECG/EKG gb Chart Complete MTDD
--- NOTE | 2016-11-23 23:22 | EDDOCDS ---
Nurse's Notes [facility] Name: Godfrey Lopez Age: 51 yrs Sex: Male : 1965 Arrival Date: 11/21/2016 Time: 15:37 Bed OBSERVATION Private MD: Nory Motley E Diagnosis: Chest pain, unspecified Presentation: 11/21 15:45 Presenting complaint: Patient states: I" i guess my blood pressure is high tight chest mk4 and heavy, pt was just in pain clinic having an epidural and upon discharge he became semi responsive and tremor in leftb hand , hx andre barre when he gets fatigued he gets shaky. 15:47 Adult Sepsis Screening: The patient does not have new or worsening altered mentation. mk4 Patient's respiratory rate is less than 22. Systolic blood pressure is greater than 100. Patient has a qSOFA score of 0- Negative Sepsis Screen. Suicide/Homicide risk assessment- the patient denies having any suicidal and/or homicidal ideations and does not present with any other emotional, behavioral or mental health complaints. 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 Transition of care: patient was not received from another setting of care. Red Flag criteria, patient assessed and taken directly to a bed. 15:47 Acuity: BERNABE Level 2 mk4 15:47 Method Of Arrival: Wheelchair mk4 Triage Assessment: 16:02 General: Appears ill. HIV screening NA for this visit Offered previously. mk4 Historical: - Allergies: no known allergies; - Home Meds: 1. flecainide 50 mg Oral tab 1 tab every 12 hours 2. aspirin 81 mg Oral chew 1 tab once daily 3. bisoprolol fumarate 5 mg oral tab 1 tab nightly 4. Vitamin B-12 500 mcg Oral tab 500 mcg daily 5. Vitamin D Oral 5000 unit daily 6. Proscar 5 mg Oral tab 1 tab once daily 7. magnesium oxide 400 mg Oral tab daily 8. metformin 500 mg Oral tab 2 times per day 9. Prilosec 40 mg Oral cpDR 1 cap once daily 10. valsartan 80 mg oral cap nightly 11. citracal petites 2 tab nightly 12. multivitamin Oral tab 2 tab daily 13. Lipitor 20 mg Oral tab 1 tab nightly 14. gabapentin 300 mg Oral tab nightly 15. tizanidine 2 mg oral tab as needed 16. Percocet 5-325 mg Oral tab 1 tab every 4-6 hours 17. colchicine 0.6 mg Oral tab as needed 18. gabapentin 100 mg Oral cap 1 tab daily 19. citalopram 10 mg Oral tab 1 tab once daily - PMHx: Atrial Fib; Migraines; Guillain [place] Syndrome; Hypertension; GERD; Diabetes - NIDDM: controlled; - PSHx: Gastric Bypass; ORIF left arm; bilateral knees; Exploratory lap; - Social history: Smoking status: Patient states was never smoker of tobacco. No barriers to communication noted, The patient speaks fluent Ukrainian. - Family history: Not pertinent. - : The pt / caregiver states he / she is not on anticoagulants. The pt / caregiver states he / she is not on anticoagulants. Home medication list is obtained from family members. - Exposure Risk Screening:: None identified. Screenin:18 Screening information is obtained from the patient. Fall risk: No risks identified. cf2 Assistance ADL's: requires no assistance with activities of daily living. Abuse/DV Screen: The patient / caregiver reports he/she is: not in a situation that causes fear, pain or injury. Nutritional screening: No deficits noted. Advance Directives: Further advance directive information is declined. home support is adequate. Assessment: 16:00 General: Appears in no apparent distress, Behavior is cooperative, drowsy. Pain: ld5 Location: head and anterior aspect of left upper chest Pain currently is 3 out of 10 on a pain scale. Pain does not radiate. 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 Neurological: Level of Consciousness is lethargic, obeys commands, Oriented to person, place, time, Rubbing Bed Operator are weak on left Weakness in left hand's) leg(s) foot/feet Speech is slurred. Respiratory: Airway is patent Respiratory effort is even, unlabored, Denies cough, shortness of breath. GI: Abdomen is non- distended Bowel sounds present X 4 quads. Denies nausea, vomiting. Derm: Skin is intact, Skin is dry, Skin is normal, Skin temperature is warm. 16:20 General: Pt states "I don't feel well. I'm going to be sick." Emesis bag provided. ld5 Provider made aware and pt medicated. Supportive daughter at bedside. Call hugo within reach. Will continue to monitor. 16:25 General: Daughter states that when pt presents with left-sided weakness it has been ld5 because his blood glucose is low or he is having a migraine headache. Pt reports a slight headache. Daughter reports pt usually takes 4 mg of Tizanidine at this time so symptoms do not get worse. Discussed with provider. 16:30 General: After 3rd nitro pt reports decreased pain. BP steadily decreasing as well. Pt ld5 denies any needs. Fluids infusing. Will continue to monitor. 17:25 General: Pt laying in bed. Remains drowsy. Family at bedside. Provider it to speak with ld5 pt and family regarding repeat blood work at 2100. Pt and family deny any needs at this time. Call hugo within reach. Will continue to monitor. 18:05 General: Appears in no apparent distress. Neurological: Level of Consciousness is ld5 awake, obeys commands. Respiratory: Airway is patent Respiratory effort is even, unlabored. 18:51 General: Pt laying comfortably in bed watching TV. Reports "feeling better". Family ld5 members remain at bedside. Aware of plan for 2100 repeats. Will continue to monitor. 22:18 Reassessment: Patient appears in no apparent distress at this time. Patient denies pain cf2 at this time. Patient states feeling better. Patient states symptoms have improved. Vital Signs: 15:39 BP 188 / 106 LA Sitting (auto/lg); Pulse 78; Resp 18; Temp 96.7(O); Pulse Ox 99% ; cmb Weight 88.45 kg (R); Height 5 ft. 10 in. (177.80 cm) (R); Pain 3/10; 15:39 BP 187 / 115 RA Sitting (auto/lg); cmb 15:52 BP 185 / 104 RA Sitting (man/reg); jrd 16:15 BP 145 / 82; Pulse 71; Pain 3/10; ld5 16:22 BP 137 / 91; Pulse 70; Resp 16; Pain 3/10; ld5 16:53 BP 132 / 94 (auto/); ld5 16:53 Pulse 60 MON; Pulse Ox 94% ; ld5 17:47 BP 121 / 61 (auto/); ld5 17:47 Pulse 60 MON; Pulse Ox 95% ; ld5 18:02 BP 105 / 59 (auto/); ld5 18:02 Pulse 58 MON; Pulse Ox 94% ; ld5 18:17 BP 109 / 62 (auto/); ld5 18:17 Pulse 60 MON; Pulse Ox 93% ; ld5 18:32 BP 100 / 63 (auto/); ld5 18:32 Pulse 58 MON; Pulse Ox 94% ; ld5 18:47 BP 103 / 57 (auto/); ld5 18:47 Pulse 58 MON; Pulse Ox 94% ; ld5 22:03 BP 163 / 71 RA Supine (auto/reg); Pulse 58 MON; Resp 18 S; Temp 97.4(O); Pulse Ox 96% cln on R/A; Pain 0/10; 15:39 Body Mass Index 27.98 (88.45 kg, 177.80 cm) cmb Vitals: 15:39 Log In Time: November 21, 2016 at 15:37. cmb ED Course: 15:39 Patient visited by Chiquita Freeman. cmb 15:39 Nory Motley is Private Physician. cmb 15:39 Patient moved to Waiting cmb 15:43 RN notified that patient meets Red Flag criteria. cmb 15:43 Patient moved to Pre RCE cmb 15:47 Patient moved to 5 js13 15:49 Triage Initiated mk4 15:50 Joaquin Monreal FNP [facility]. ke 15:50 Patient visited by Joaquin Monreal FNP. ke 15:50 Patient visited by Joaquin Monreal FNP. ke 15:52 Patient visited by Roby Naqvi PCA. jrd 16:05 Patient visited by Khalida Silva. dem1 16:05 EKG done. (by ED staff). Reviewed by Joaquin RESENDIZ. dem1 16:32 Patient visited by Nory Sanchze,PRICE. ld5 16:34 Fingerstick Blood Sugar Sent. ld5 16:45 portable chest Returned. EDMS 17:10 Patient visited by Joaquin Monreal FNP. ke 17:16 Patient visited by Nory Sanchez,RN. ld5 17:26 Patient visited by Nory Sanchez,RN. ld5 17:58 Patient visited by Nory Sanchez,RN. ld5 18:13 [facility] Payment Agreement was scanned into [employer] and attached to record. ks16 18:29 Patient visited by Joaquin Monreal FNP. ke 18:52 Patient visited by Nory Sanchez,PRICE. ld5 18:52 Patient visited by Nory Sanchez,PRICE. ld5 19:02 Patient visited by Teddy Castro PCA. kb5 19:08 Dawna Otoole,PRICE is Primary Nurse. cf2 19:08 Patient visited by Dawna Otoole,PRICE. cf2 19:42 Patient visited by Joaquin Monreal FNP. ke 20:06 Patient visited by Joaquin Monreal FNP. ke 20:15 Patient visited by Dawna Otoole RN. cf2 20:45 Patient visited by Joaquin Monreal FNP. ke 21:02 Patient moved to OBSERVATION nov 21:03 CARDIAC MARKER PANEL Sent. ls3 21:03 EKG done. (by ED staff). Reviewed by Joaquin RESENDIZ. ls3 21:41 Nory Motley is Referral Physician. ke 21:56 Patient visited by Teddy Castro PCA. kb5 22:04 Patient visited by Amanda Batista PCA. cln 22:18 Patient visited by Dawna Otoole RN. cf2 22:18 The patient / caregiver is instructed regarding the plan of care and ED course. Patient cf2 has correct armband on for positive identification. Placed in gown. Bed in low position. Call light in reach. Side rails up X 1. Side rails up X2. Adult w/ patient. smasher on. Pulse ox on. NIBP on. 22:18 Discontinued lock. No procedures done that require assistance. cf2 22:20 Chance Shaffer DO is Attending Physician. cf2 11/22 09:06 EKG-ADULT Returned. EDMS 09:06 ECG WITH READING ER PHYS Returned. EDMS 10:12 T-Sheet-- Draft Copy was scanned into [employer] and attached to record. gb 10:13 ECG/EKG was scanned into [employer] and attached to record. gb Administered Medications: 11/21 16:10 Drug: Aspirin 324 mg [aspirin 81 mg chewable tablet (4 tabs)] Route: PO; ld5 16:10 Drug: Nitrostat 0.4 mg [Nitrostat 0.4 mg sublingual tablet (1 tabs)] Route: Sublingual; ld5 16:15 Follow up: BP 145 / 82; Pulse 71 bpm; Pain 3/10 Adult; Response: No significant change. ld5 16:15 Drug: NS 0.9% 1000 ml [sodium chloride 0.9 % intravenous solution] Route: IV; Rate: 100 ld5 mL/hr; Site: right forearm; 16:16 Drug: Nitrostat 0.4 mg [Nitrostat 0.4 mg sublingual tablet (1 tabs)] Route: Sublingual; ld5 16:22 Follow up: BP 137 / 91; Pulse 70 bpm; Resp 16 bpm; Pain 3/10 Adult; Response: No ld5 significant change. 16:17 Drug: Ondansetron 4 mg [ondansetron HCl 2 mg/mL intravenous solution (2 mL)] Route: ld5 IVP; Site: right forearm; 19:56 Follow up: Response: No significant change. cf2 16:23 Drug: Nitrostat 0.4 mg [Nitrostat 0.4 mg sublingual tablet (1 tabs)] Route: Sublingual; ld5 17:01 Drug: tiZANidine 4 mg [tizanidine 4 mg tablet (1 tabs)] Route: PO; ld5 19:57 Follow up: Response: No significant change. cf2 Point of Care Testing: Blood Glucose: 16:31 Blood Glucose: 223 mg/dL; ld5 Ranges: Order Results: Lab Order: Basic Metabolic Profile; SPEC'M 11/21/16 15:58 Test: GLUCOSE, FASTING; Value: 243; Range: 70-105; Abnormal: Above high normal; Units: MG/DL; Status: F Test: BLOOD UREA NITROGEN; Value: 14; Range: 7-18; Units: MG/DL; Status: F Test: CREATININE FOR GFR; Value: 0.96; Range: 0.70-1.30; Units: MG/DL; Status: F Test: GLOMERULAR FILTRATION RATE; Value: > 60.0; Range: >56; Status: F Test: SODIUM LEVEL; Value: 139; Range: 136-145; Units: MEQ/L; Status: F Test: POTASSIUM SERUM; Value: 3.8; Range: 3.5-5.1; Units: MEQ/L; Status: F Test: CHLORIDE LEVEL; Value: 102; Range: 98-107; Units: MEQ/L; Status: F Test: CARBON DIOXIDE LEVEL; Value: 30; Range: 21-32; Units: MEQ/L; Status: F Test: ANION GAP; Value: 7; Range: 8-16; Abnormal: Below low normal; Units: MEQ/L; Status: F Test: CALCIUM LEVEL; Value: 8.7; Range: 8.5-10.1; Units: MG/DL; Status: F Test Note: ; Units are mL/min/1.73 m2 Chronic Kidney Disease Staging per NKF: Stage I & II GFR >=60 Normal to Mildly Decreased Stage III GFR 30-59 Moderately Decreased Stage IV GFR 15-29 Severely Decreased Stage V GFR <15 Very Little GFR Left ESRD GFR <15 on ASSISTANT DIRECTOR OF SECURITY Lab Order: CBC with Diff; SPEC'M 11/21/16 15:58 Test: WHITE BLOOD COUNT; Value: 6.3; Range: 4.0-10.0; Units: K/mm3; Status: F Test: RED BLOOD COUNT; Value: 5.18; Range: 4.30-6.10; Units: M/mm3; Status: F Test: HEMOGLOBIN; Value: 14.9; Range: 14.0-18.0; Units: g/dl; Status: F Test: HEMATOCRIT; Value: 43.5; Range: 42.0-52.0; Units: %; Status: F Test: MEAN CORPUSCULAR VOLUME; Value: 83.8; Range: 80.0-96.0; Units: fl; Status: F Test: MEAN CORPUSCULAR HEMOGLOBIN; Value: 28.7; Range: 27.0-33.0; Units: pg; Status: F Test: MEAN CORPUSCULAR HGB CONC; Value: 34.2; Range: 32.0-36.5; Units: g/dl; Status: F Test: RED CELL DISTRIBUTION WIDTH; Value: 13.1; Range: 11.5-14.5; Units: %; Status: F Test: PLATELET COUNT, AUTOMATED; Value: 185; Range: 150-450; Units: k/mm3; Status: F Test: NEUTROPHILS %; Value: 69.4; Range: 36.0-66.0; Abnormal: Above high normal; Units: %; Status: F Test: LYMPH %; Value: 22.3; Range: 24.0-44.0; Abnormal: Below low normal; Units: %; Status: F Test: MONO %; Value: 4.2; Range: 0.0-5.0; Units: %; Status: F Test: EOS %; Value: 1.8; Range: 0.0-3.0; Units: %; Status: F Test: BASO %; Value: 1.1; Range: 0.0-1.0; Abnormal: Above high normal; Units: %; Status: F Test: LARGE UNSTAINED CELL %; Value: 1.3; Range: 0.0-4.0; Units: %; Status: F Test: NEUTROPHILS #; Value: 4.4; Range: 1.8-7.7; Units: K/mm3; Status: F Test: LYMPH #; Value: 1.5; Range: 1.5-4.5; Units: K/mm3; Status: F Test: MONO #; Value: 0.3; Range: 0.0-0.8; Units: K/mm3; Status: F Test: EOS #; Value: 0.1; Range: 0.0-0.50; Units: K/mm3; Status: F Test: BASO #; Value: 0.1; Range: 0.0-0.2; Units: K/mm3; Status: F Test: LARGE UNSTAINED CELL #; Value: 0.1; Range: 0.0-0.4; Units: K/mm3; Status: F Lab Order: Cardiac Injury Profile; SPEC'M 11/21/16 15:58 Test: CPK CREATINE PHOSPHOKINASE; Value: 36; Range: 39-308; Abnormal: Below low normal; Units: U/L; Status: F Test: CK-MB VALUE MASS; Value: 1.0; Range: 0.0-3.6; Units: NG/ML; Status: F Test: MB/CK RELATIVE INDEX; Value: 2.77; Range: < OR =4; Status: F Test Note: ; DIAGNOSIS CRITERIA MMB ng/ml Relative Index (RI) NON-AMI < or = 5 N/A SALEH ZONE > 5 < or = 4 AMI > 5 > 4 Lab Order: Prothrombin Time Profile\\E\\INR; SPEC'M 11/21/16 15:58 Test: PROTHROMBIN TIME; Value: 12.7; Range: 12.3-14.5; Units: SECONDS; Status: F Test: INR; Value: 0.94; Status: F Test Note: ; THERAPUTIC HUMAN INR VALUES INDICATIONS NORMAL RANGES PROPHYLAXIS/TREATMENT OF: VENOUS THROMBOSIS 2.0-3.0 PULMONARY EMBOLISM 2.0-3.0 PREVENTION OF SYSTEMIC EMBOLISM FROM: TISSUE HEART VALVES 2.0-3.0 ACUTE MYOCARDIAL INFARCTION 2.0-3.0 VALVULAR HEART DISEASE 2.0-3.0 ATRIAL FIBRILLATION 2.0-3.0 MECHANICAL VALVES(HIGH RISK) 2.5-3.5 RECURRENT MYOCARDIAL INFARCTION 2.5-3.5 Lab Order: Troponin; [facility] 11/21/16 15:58 Test: TROPONIN I; Value: < 0.02; Range: < 0.10; Units: NG/ML; Status: F Test Note: ; Troponin I Reference Interval for [place] LOCI: 99th Percentile= 0.00-0.045 ng/ml Risk Stratification: <= 0.10 ng/ml Decreased Risk for Adverse Clinical Events. 0.10-1.50 ng/ml Increased Risk for Adverse Clinical Events. Evaluation of additional criterion and/or repeat testing in 2-6 hours is suggested to rule out myocardial damage. >= 1.50 ng/ml Indicative of Myocardial Injury. Lab Order: Fingerstick Blood Sugar; [facility] 11/21/16 16:22 Test: BEDSIDE GLUCOSE; Value: 223; Range: 70-105; Abnormal: Above high normal; Units: MG/DL; Status: F Lab Order: CARDIAC MARKER PANEL; [facility] 11/21/16 20:57 Test: CPK CREATINE PHOSPHOKINASE; Value: 29; Range: 39-308; Abnormal: Below low normal; Units: U/L; Status: F Test: CK-MB VALUE MASS; Value: 1.4; Range: 0.0-3.6; Units: NG/ML; Status: F Test: MB/CK RELATIVE INDEX; Value: 4.82; Range: < OR =4; Abnormal: Above high normal; Status: F Test: TROPONIN I; Value: < 0.02; Range: < 0.10; Units: NG/ML; Status: F Test Note: ; DIAGNOSIS CRITERIA MMB ng/ml Relative Index (RI) NON-AMI < or = 5 N/A SALEH ZONE > 5 < or = 4 AMI > 5 > 4 Radiology Order: portable chest Test: portable chest REASON FOR EXAMINATION: Chest Pain; Clinical: Chest pain .; ; Comparison: 11/27/2015 .; ; Findings:; The mediastinum and cardiac silhouette are stable and within normal limits for; portable technique. The lung patel are clear without acute consolidation,; effusion, or pneumothorax. 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; : 1965 Requested By: JOAQUIN RESENDIZ; Order Number: [id number] Reading : Jarrod Adari; Measurements; Intervals [place]; Rate: 65 P: 71; NV: 159 QRS: 25; QRSD: 96 T: 35; QT: 413; QTc: 430; Interpretive Statements; SINUS RHYTHM; PRIOR INFERIOR INFARCT; ; Electronically Signed On 11-22-2016 8:27:49 EST by Jarrod Adair; Radiology Order: ECG WITH READING ER PHYS Test: ECG WITH READING ER PHYS REASON FOR EXAMINATION: CHEST PAIN; Stationary ECG Study; [facility]; ; Test Date: 2016-11-21; Pat Name: [facility] Department:; Room: -; 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 ke 22:18 Discharge Assessment: Patient awake, alert and oriented x 3. No cognitive and/or cf2 functional deficits noted. Patient verbalized understanding of disposition instructions. Patient awake and alert. patient administered narcotics - no. The following High Risk Discharge criteria are identified: None. Discharged to home ambulatory. Condition: stable Condition: improved. No special radiology studies were completed. Property :Personal belongings accompany Pt. 22:20 Patient left the ED. cf2 Signatures: Dispatcher [employer] EDMS Chandrika Roman, RN RN Eunice Perales, Reg Reg gb Rah, Joaquin, RETAIL SALES PROFESSIONAL RETAIL SALES PROFESSIONAL ke Teddy Castro, TRANSPORTATION DEPARTMENT SUPERVISOR TRANSPORTATION DEPARTMENT SUPERVISOR kb5 Nory Sanchez,RN RN ld5 Khalida Silva Jennifer,RN RN [id number] Chiquita Freeman Margaret, RN RN mk4 Roby Naqvi, TRANSPORTATION DEPARTMENT SUPERVISOR TRANSPORTATION DEPARTMENT SUPERVISOR d Sarah Shaffer, TRANSPORTATION DEPARTMENT SUPERVISOR TRANSPORTATION DEPARTMENT SUPERVISOR [email or web address] Romelia Muñoz, Reg Reg ks16 Amanda Batista, TRANSPORTATION DEPARTMENT SUPERVISOR TRANSPORTATION DEPARTMENT SUPERVISOR marilynn Dawna Otoole,RN RN cf2 Corrections: (The following items were deleted from the chart) 15:49 15:45 Presenting complaint: Patient states: I guess blood pressure is high tight chest mk4 and heavy mk4 Chart Complete MTDD
== END 2016-11-21 22:20 | disposition home or self-care (01) ==
LOC: M ED 15:37
DX: R07.89 Other chest pain (principal); I10 Essential (primary) hypertension; I48.91 Unspecified atrial fibrillation; E11.9 Type 2 diabetes mellitus without complications; G43.909 Migraine, unspecified, not intractable, without status migrainosus; K21.9 Gastro-esophageal reflux disease without esophagitis; G61.0 Guillain-Barre syndrome; Z98.84 Bariatric surgery status; Z79.899 Other long term (current) drug therapy; Z79.82 Long term (current) use of aspirin; Z79.84 Long term (current) use of oral hypoglycemic drugs
CPT/HCPCS: 71010; 80048; 82550; 82553; 85025; 85610; 93005; 93041; 96374; 99284; J2405

== ENCOUNTER → 2016-11-21 | Outpatient (CLI) | payer BC, OTHER ==
[~2016-11-21] MED LIST: /BISO10TA OR; /INSULEV; /PANT40TA; /WARF3TA; /WARF3TA OR; /WARF5TA; /WARF5TA OR; ACET500T37 PO; ACTO15TA PO; ALDA25TA PO; ALDA25TA2 PO; ASPI81TA13 PO; ASPI81TA3 OR; ASPI81TA45 PO; ASPI81TA83; ATEN50TA2; ATOR1TAB21 PO; BISO5TAB5 PO; CALCCAP PO; CALCIUM W/VIT D PO; CELE10TA; CELE10TA OR; CELE10TA PO; CELE20TA PO; CHLO125TA PO; CIPR100T4 OR; CITRTAB10 PO; COLA100C PO; COLC1CAP PO; COZA50TA PO; D-50TAB PO; FLEC1TAB PO; FLEC50TA PO; FLECAINIDE PO; GABA-279 PO; GABA-283 PO; GABA300C3 PO; GLUC1000; GLUC1000 OR; HUMA75VL SC; HUMALOG; HYDR25TA6; HYDR25TA6 OR; IMIT100T PO; INSULANT; INSULIN DETEMIR; INSULIN SQ; INVO100T PO; ISOVUE-M 300 61% 15ML VIAL (Q9967) As Ordered ONE; JANUVIA; LIDO5TD TD; LIDOCAINE 1% SDV INJ 30 ML VIAL As Ordered ONE; LIPI20TA PO; LISI20TA5; LISI20TA5 OR; LISI40TA OR; MAGN500T2 OR; MAXA10TA14 PO; MAXA10TA17; MAXA10TA17 OR; MELA0.02 PO; METF-415 PO; METF1000 PO; MILKSUS PO; MIRA3350 PO; MOBI7.5T10 PO; MULTCAP PO; Metformin PO; NAPR250T2 PO; NEUR100C PO; NITR4TASL SL; NORC5TAB PO; NORV5TAB OR; NOVOLOG100 MG/ML; OMEP40CA2 PO; PERC5TAB6 PO; PERC5TAB8; PRIL40CA PO; PRIN20TA3; PROP120C OR; PROP80CA PO; PROS5TAB PO; RIBO100C OR; SENO8.6T2 PO; SOMA350T PO; TIZA2CAP3 PO; TOPI50TA; TYLE167L PO; TYLE325T5 PO; ULTR50TA PO; VICO5TAB OR; VITA-193 PO; VITA500046 PO; VITA500T3 PO; VITA500T53 PO; VITACAP9 PO; VITMTA PO; ZOCO40TA; ZOCO40TA OR; [UNRECOGNIZED DRUG - OTHER]; [UNRECOGNIZED DRUG - OTHER] PO; diazePAM 5 MG TAB As Ordered ONE; januvia PO; methylPREDNISolone SUSP 40 MG/ML (DEPO-medrol) VIAL (J1030) As Ordered ONE; oxyCODONE 5MG TAB As Ordered ONE; tylenol #3 PO
--- NOTE | 2016-11-21 17:53 | REP ---
Partial lumbar spine series: Three views: History: Lumbar epidural steroid injection for pain. 23 seconds of fluoroscopy time is reported. Findings: A sequence of three fluoroscopically obtained intraprocedural spot radiographs of the lumbar spine document needle position and contrast injection associated with lumbar epidural injection procedure. Signed by Nick Stanley MD 11/22/2016 08:04 A
--- NOTE | 2016-11-26 00:22 | ECWPNPC ---
PATIENT NAME: HAI DAIGLE : 1965 GENDER: MALE VISIT DATE: 11/21/2016 DISCHARGE DATE: 11/21/16 1528 VISIT LOCKED DATE TIME: PHYSICIAN: BONY ANTOINE RESOURCE: BONY ANTOINE REASON FOR APPOINTMENT 1. LESB HISTORY OF PRESENT ILLNESS HISTORY OF PRESENT ILLNESS: PAIN THE PATIENT DESCRIBES THE PAIN... FALL RISK SCREENING: SCREENING :NO FALLS IN THE PAST YEAR CURRENT MEDICATIONS TAKING SOMA 350 MG TABLET 1 TABLET NEEDED ORALLY ONE AT BEDTIME MDD=1, NOTES: 11/20/162099 TAKING PROSCAR 5 MG TABLET 1 TABLET ORALLY ONCE A DAY, NOTES: 11/21/16499 TAKING LIPITOR 20 MG TABLET 1 TABLET ORALLY ONCE A DAY, NOTES: 11/20/161999 TAKING CELEXA 10 MG TABLET 2 TABLETS ORALLY ONCE A DAY, NOTES: 11/20/161999 TAKING ASPIR-81 81 MG TABLET DELAYED RELEASE 1 TABLET ORALLY ONCE A DAY, NOTES: 11/21/16499 TAKING FLECAINIDE ACETATE 50 MG TABLET 1 TABLET ORALLY EVERY 12 HRS, NOTES: 11/20/16499 TAKING ZEBETA 5 MG TABLET 1 TABLET ORALLY ONCE A DAY, NOTES: 11/20/161999 TAKING MULTI FOR HIM TABLET DIRECTED ORALLY , NOTES: 11/21/16499 TAKING VITAMIN B-12 500 MCG TABLET 1 TABLET ORALLY ONCE A DAY, NOTES: 11/21/16499 TAKING CITRACAL PLUS 400MG TABLET 2 TABS ORALLY AT BEDTIME, NOTES: 11/20/161999 TAKING TIZANIDINE HCL 2 MG TABLET 1 TABLET NEEDED ORALLY EVERY 8 HRS, NOTES: 11/20/161799 TAKING METFORMIN HCL 500 MG TABLET 1 TABLET WITH MEALS ORALLY TWICE DAILY, NOTES: 11/20/16 050 TAKING GABAPENTIN 300 MG TABLET ORALLY AT BEDTIME, NOTES: 11/20/161999 TAKING MAGNESIUM 400 MG CAPSULE 1 CAPSULE WITH A MEAL ORALLY ONCE A DAY, NOTES: 11/21/16499 TAKING VALSARTAN 80 MG CAPSULE 1 TAB ORALLY ONCE A DAY, NOTES: 11/21/16499 TAKING MELATONIN 3 MG TABLET ORALLY AT BEDTIME, NOTES: NONE TAKING COLCHICINE 0.6 MG CAPSULE ORALLY DIRECTED, NOTES: TAKES ONLY FOR GOUT FLARE UP TAKING PRILOSEC 40 MG CAPSULE DELAYED RELEASE 1 CAPSULE ORALLY ONCE A DAY, NOTES: 11/20/161999 TAKING PERCOCET 5-325 MG TABLET 1 TABLET ORALLY ONCE DAILY PRN FOR PAIN MDD=1, NOTES: 11/19/162099 NOT-TAKING VITAMIN D3 MAXIMUM STRENGTH 5000 UNIT CAPSULE 1 CAPSULE ORALLY DAILY NOT-TAKING VITAMIN D 1000 UNIT TABLET 1 TABLET ORALLY ONCE A DAY, NOTES: 0500 MEDICATION LIST REVIEWED AND RECONCILED WITH THE PATIENT PAST MEDICAL HISTORY DIABETES MIGRAINES PAF HTN GERD HIGH CHOLESTEROL CHARLINE-CPAP GUILLAIN BARRE ALLERGIES N.K.D.A. SOCIAL HISTORY GENERAL: TOBACCO USE ARE YOU A:NONSMOKER LEARNING BARRIERS / SPECIAL NEEDS ORIENTED TO PLAN OF CARE: PATIENT, PAIN MANAGEMENT PATIENT, ORIENTED TO PLAN OF CARE: PATIENT, PAIN MANAGEMENT PATIENT. NEW PATIENT PAIN DIARY TODAY'S VISITNOTES FROM 0-10, WHAT LEVEL IS YOUR PAIN TODAY?0 PAIN CLINIC PFS, CLERGY, PUBLIC HEALTH REFERRALS PFS REFERRAL NEEDED?NO CLERGY REFERRAL NEEDED?NO PUBLIC HEALTH REFERRAL NEEDED?NO WAS THE PROVIDER NOTIFIED OF ANY PERTINENT INFO?NO PFS REFERRAL NEEDED?NO CLERGY REFERRAL NEEDED?NO PUBLIC HEALTH REFERRAL NEEDED?NO WAS THE PROVIDER NOTIFIED OF ANY PERTINENT INFO?NO REVIEW OF SYSTEMS CONSTITUTIONAL: ANY CHANGE IN YOUR MEDICAL CONDITION? NO . CHILLS NO . FEVER NO . INFECTION: DO YOU HAVE NEW INFECTIONS? NO . DO YOU HAVE HISTORY OF MRSA? NO . MUSCULOSKELETAL: ANY NEW PATTERNS OF PAIN OR NUMBNESS? NO . GASTROENTEROLOGY: ANY NEW CHANGE IN BOWEL CONTROL? NO . GENITOURINARY: ANY NEW CHANGE IN BLADDER CONTROL? NO . IS THERE A CHANCE YOU COULD BE ? NO . HEMATOLOGY/LYMPH: DO YOU TAKE ANY BLOOD THINNERS? (FOR EXAMPLE- COUMADIN, PLAVIX, AGGRENOX, PLATEL, PRADAXA, OR XARELTO) NO . WHEN WAS YOUR LAST DOSE? DATE: TIME: . NEUROLOGY: HAVE YOU FALLEN IN THE PAST 6 MONTHS? NO . ANY NEW EXTREMITY NUMBNESS OR WEAKNESS? NO . CARDIOLOGY: DO YOU HAVE A PACEMAKER OR DEFIBRILLATOR? NO . RESPIRATORY: HAVE YOU BEEN SICK IN THE PAST WEEK? NO . FEVER NO . FLU LIKE SYMPTOMS? NO . COUGH NO . INTEGUMENTARY: DO YOU HAVE ANY RASHES OR OPEN SORES? NO . ALLERGIC/IMMUNO: ARE YOU ALLERGIC TO SHELLFISH OR IV DYE? NO . ANY NEW ALLERGIES? NO . PSYCHIATRIC: DO YOU HAVE THOUGHTS OF HURTING YOURSELF OR SOMEONE ELSE? NO . ARE YOU ABUSED, NEGLECTED, OR IN AN UNSAFE ENVIRONMENT? NO . ENDOCRINOLOGY: ARE YOU DIABETIC? YES . OTHER: DO YOU NEED ANY PRESCRIPTIONS? NO . IF YES, PLEASE LIST: ____ . ANY NEW PROBLEMS WITH YOUR MEDICATIONS? NO . WHEN DID YOU LAST EAT? ____11/21/16 0500 . WHEN DID YOU LAST DRINK? ____11/21/16 1100 . WHAT DID YOU LAST DRINK? ____WATER . NAME OF PERSON DRIVING YOU HOME? ____SAM . DO YOU HAVE ANY OTHER QUESTIONS OR CONCERNS NO . REVIEWED BY: PROVIDER: . VITAL SIGNS WT 195 LBS, HT 70 IN, BMI 27.98 INDEX, BP 198/100 R ARM, REPEAT BP 170/106 L ARM, HR 70 /MIN, RR 16 /MIN, TEMP 96.0 F, OXYGEN SAT % 96, NA INITIALS TL 1327, REVIEWED BY: LASDR. ANTOINE AWARE OF HIGH BLOOD PRESSURE. ASSESSMENTS INTERVERTEBRAL DISC DISORDERS WITH RADICULOPATHY, LUMBAR REGION - M51.16 (PRIMARY) PROCEDURES PRE PROCEDURE DIAGNOSIS LUMBAR RADICULOPATHY, LUMBAR DISC DISORDER WITH RADICULOPATHY POST PROCEDURE DIAGNOSIS LUMBAR RADICULOPATHY , LUMBAR DISC DISORDER WITH RADICULOPATHY PROCEDURE LUMBAR EPIDURAL STEROID INJECTION UNDER FLUOROSCOPIC GUIDANCE SURGEON DR. 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 I EVALUATE THE PATIENT AND REVIEWED THE CHART. I WENT OVER THE RISKS, ALTERNATIVES, AND BENEFITS ASSOCIATED WITH THIS PROCEDURE. THE PATIENT WOULD LIKE TO PROCEED AND GIVE CONSENT TO PERFORMED THE PROCEDURE. THE PATIENT DENIES UNEXPLAINABLE WEIGHT LOSS, FEVER, CHILLS, OR NEW CHANGES IN URINARY OR BOWEL CONTROL. DESCRIPTION OF PROCEDURE THE PATIENT WAS BROUGHT TO THE PROCEDURE ROOM AND PLACED IN THE PRONE POSITION. THE LUMBOSACRAL AREA WAS CLEANED WITH BETADINE SOLUTION AND DRAPED ASEPTICALLY. THE PROCEDURE WAS DONE UNDER STERILE CONDITIONS. I CHECKED LATERALITY AND THE LEVEL WHERE THE PROCEDURE WAS GOING TO BE PERFORMED WITH THE PATIENT AND THE SUPPORTING STAFF AT THE MOMENT OF THE TIME OUT IN THE PROCEDURE ROOM. UNDER FLUOROSCOPIC GUIDANCE, THE TARGET POINT WAS SELECTED AT THE INTERLAMINAR LEVEL OF L4-L5. LIDOCAINE WAS USED TO NUMB THE SKIN AND THE SUBCUTANEOUS TISSUE BELOW IT. EPIDURAL TUOHY NEEDLE, 17-GAUGE, WAS ADVANCED UNDER FLUOROSCOPIC GUIDANCE AND FOLLOWING PATIENT FEEDBACK UNTIL THE EPIDURAL SPACE WAS REACHED, 7 CM DEEP INTO THE SKIN BY THE LOSS OF RESISTANCE TECHNIQUE. ISOVUE M DYE 30%, 0.25 ML, WAS INJECTED SHOWING ADEQUATE SPREAD OF THE DYE. THEN, A SOLUTION OF 3 ML OF NORMAL SALINE WITH DEPO-MEDROL 60 MG WAS INJECTED SLOWLY FOLLOWING PATIENT FEEDBACK. THERE WAS NO EVIDENCE OF BLOOD, PARESTHESIA OR CEREBROSPINAL FLUID DURING THE PROCEDURE. THE PATIENT WAS SENT TO THE RECOVERY ROOM. THE PATIENT WAS MOVING THE EXTREMITIES AND DOING WELL. THERE WAS NO COMPLICATION DURING THE PROCEDURE. FLUOROSCOPY TIME WAS 23 SECONDS. POST PROCEDURE NOTE THE PATIENT WILL BE SEEN IN A FOLLOW UP IN THE NEXT FEW WEEKS. INSTRUCTIONS WERE GIVEN, QUESTIONS WERE ANSWERED, AND THE PATIENT EXPRESSED UNDERSTANDING AND AGREES WITH THE PLAN. INSTRUCTIONS WERE GIVEN, QUESTIONS WERE ANSWERED, PATIENT REPORTS UNDERSTANDING AND AGREES WITH THE PLAN. I, HOWARD BOUDREAUX, DOCUMENTED THE ABOVE INFORMATION ACTING A SCRIBE FOR DR. ANTOINE. I HAVE REVIEWED THE ABOVE DOCUMENT, WRITTEN BY HOWARD BOUDREAUX SCRIBE AND I VERIFY THAT IT IS ACCURATE. DIAGNOSTIC IMAGING [facility] FLUORO GUIDE SPINE INJECTION (PAIN)[id number] PROCEDURE CODES 85985 LUMBAR/SACRAL W/ IMAGING 6045F RADXPS IN END [id number] PXD FOLLOW UP 3 WEEKS ELECTRONICALLY SIGNED BY BONY ANTOINE MD ON 11/25/2016 AT 09:25 PM EST DISCLAIMER : THIS IS A VISIT SUMMARY EXTRACTED FROM THE [employer] CHART. IT IS NOT A COPY OF THE [employer] PROGRESS NOTE. MTDD
== END ==
LOC: M PAIN 13:20
PROVIDERS: ATTEND Anesthesiology
DX: G89.29 Other chronic pain (principal); M51.16 Intervertebral disc disorders with radiculopathy, lumbar region; M54.5 Low back pain; Z79.82 Long term (current) use of aspirin; Z79.84 Long term (current) use of oral hypoglycemic drugs; Z79.891 Long term (current) use of opiate analgesic; Z79.899 Other long term (current) drug therapy
CPT/HCPCS: 62323; J1030; Q9967

== ENCOUNTER → 2016-12-03 | Outpatient (CLI) | payer OTHER ==
--- NOTE | 2016-12-27 02:03 | ECWPNPC ---
PATIENT NAME: HAI DAIGLE : 1965 GENDER: MALE VISIT DATE: 12/03/2016 DISCHARGE DATE: 12/03/16 1605 VISIT LOCKED DATE TIME: PHYSICIAN: ELVIN CROWE RESOURCE: ELVIN CROWE REASON FOR APPOINTMENT 1. FOLLOW UP HISTORY OF PRESENT ILLNESS HISTORY OF PRESENT ILLNESS: PAIN THE PATIENT DESCRIBES THE PAIN... FALL RISK SCREENING: SCREENING :NO FALLS IN THE PAST YEAR TODAY'S VISIT: NOTES: PAIN CENTERED LOW BACK WITH RADIATION TO RIGHT BUTTUCK AND INTO RIGHT HIP. HAD ONE DAY OF NUMBNESS INTO RIGHT LEG. IS S/P LESB COMPLETED ON 11/21/16. HAD EPISODE OF CHEST PAIN AND HYPERTENSION AT END OF PROCEDURE. WAS SEEN IN ER. NO RECURRANCE OF CHEST PAIN SINCE. HAS NOT YET SEEN PCP. STATES HAD LESS THAN 24 HOURS PAIN CONTROL AFTER LESB. CURRENT MEDICATIONS TAKING SOMA 350 MG TABLET 1 TABLET NEEDED ORALLY ONE AT BEDTIME MDD=1 TAKING PROSCAR 5 MG TABLET 1 TABLET ORALLY ONCE A DAY TAKING LIPITOR 20 MG TABLET 1 TABLET ORALLY ONCE A DAY TAKING CELEXA 10 MG TABLET 2 TABLETS ORALLY ONCE A DAY TAKING ASPIR-81 81 MG TABLET DELAYED RELEASE 1 TABLET ORALLY ONCE A DAY TAKING FLECAINIDE ACETATE 50 MG TABLET 1 TABLET ORALLY EVERY 12 HRS TAKING ZEBETA 5 MG TABLET 1 TABLET ORALLY ONCE A DAY TAKING MULTI FOR HIM TABLET DIRECTED ORALLY TAKING VITAMIN B-12 500 MCG TABLET 1 TABLET ORALLY ONCE A DAY TAKING CITRACAL PLUS 400MG TABLET 2 TABS ORALLY AT BEDTIME TAKING TIZANIDINE HCL 2 MG TABLET 1 TABLET NEEDED ORALLY EVERY 8 HRS TAKING METFORMIN HCL 1000 MG TABLET 1 TABLET WITH MEALS ORALLY TWICE DAILY TAKING GABAPENTIN 300 MG TABLET ORALLY AT BEDTIME TAKING MAGNESIUM 400 MG CAPSULE 1 CAPSULE WITH A MEAL ORALLY ONCE A DAY TAKING VALSARTAN 80 MG CAPSULE 1 TAB ORALLY ONCE A DAY TAKING MELATONIN 3 MG TABLET ORALLY AT BEDTIME, NOTES: NONE TAKING GABAPENTIN 100 MG CAPSULE ORALLY MORNING TAKING COLCHICINE 0.6 MG CAPSULE ORALLY DIRECTED, NOTES: TAKES ONLY FOR GOUT FLARE UP TAKING PRILOSEC 40 MG CAPSULE DELAYED RELEASE 1 CAPSULE ORALLY ONCE A DAY, NOTES: 11/20/161999 TAKING PERCOCET 5-325 MG TABLET 1 TABLET ORALLY ONCE DAILY PRN FOR PAIN MDD=1 NOT-TAKING VITAMIN D3 MAXIMUM STRENGTH 5000 UNIT CAPSULE 1 CAPSULE ORALLY DAILY NOT-TAKING VITAMIN D 1000 UNIT TABLET 1 TABLET ORALLY ONCE A DAY, NOTES: 0500 MEDICATION LIST REVIEWED AND RECONCILED WITH THE PATIENT PAST MEDICAL HISTORY DIABETES MIGRAINES PAF HTN GERD HIGH CHOLESTEROL CHARLINE-CPAP GUILLAIN BARRE ALLERGIES N.K.D.A. SOCIAL HISTORY GENERAL: TOBACCO USE ARE YOU A:NONSMOKER LEARNING BARRIERS / SPECIAL NEEDS ORIENTED TO PLAN OF CARE: PATIENT, PAIN MANAGEMENT PATIENT, ORIENTED TO PLAN OF CARE: PATIENT, PAIN MANAGEMENT PATIENT. NEW PATIENT PAIN DIARY TODAY'S VISITNOTES FROM 0-10, WHAT LEVEL IS YOUR PAIN TODAY?0 PAIN CLINIC PFS, CLERGY, PUBLIC HEALTH REFERRALS PFS REFERRAL NEEDED?NO CLERGY REFERRAL NEEDED?NO PUBLIC HEALTH REFERRAL NEEDED?NO WAS THE PROVIDER NOTIFIED OF ANY PERTINENT INFO?NO PFS REFERRAL NEEDED?NO CLERGY REFERRAL NEEDED?NO PUBLIC HEALTH REFERRAL NEEDED?NO WAS THE PROVIDER NOTIFIED OF ANY PERTINENT INFO?NO REVIEW OF SYSTEMS CONSTITUTIONAL: ANY CHANGE IN YOUR MEDICAL CONDITION? NO . CHILLS NO . FEVER NO . INFECTION: DO YOU HAVE NEW INFECTIONS? NO . DO YOU HAVE HISTORY OF MRSA? NO . MUSCULOSKELETAL: ANY NEW PATTERNS OF PAIN OR NUMBNESS? NO . GASTROENTEROLOGY: ANY NEW CHANGE IN BOWEL CONTROL? NO . GENITOURINARY: ANY NEW CHANGE IN BLADDER CONTROL? NO . IS THERE A CHANCE YOU COULD BE ? NO . HEMATOLOGY/LYMPH: DO YOU TAKE ANY BLOOD THINNERS? (FOR EXAMPLE- COUMADIN, PLAVIX, AGGRENOX, PLATEL, PRADAXA, OR XARELTO) NO . WHEN WAS YOUR LAST DOSE? DATE: TIME: . NEUROLOGY: HAVE YOU FALLEN IN THE PAST 6 MONTHS? NO . ANY NEW EXTREMITY NUMBNESS OR WEAKNESS? NO . CARDIOLOGY: DO YOU HAVE A PACEMAKER OR DEFIBRILLATOR? NO . RESPIRATORY: HAVE YOU BEEN SICK IN THE PAST WEEK? NO . FEVER NO . FLU LIKE SYMPTOMS? NO . COUGH NO . INTEGUMENTARY: DO YOU HAVE ANY RASHES OR OPEN SORES? NO . ALLERGIC/IMMUNO: ARE YOU ALLERGIC TO SHELLFISH OR IV DYE? NO . ANY NEW ALLERGIES? NO . PSYCHIATRIC: DO YOU HAVE THOUGHTS OF HURTING YOURSELF OR SOMEONE ELSE? NO . ARE YOU ABUSED, NEGLECTED, OR IN AN UNSAFE ENVIRONMENT? NO . ENDOCRINOLOGY: ARE YOU DIABETIC? NO . OTHER: DO YOU NEED ANY PRESCRIPTIONS? NO . IF YES, PLEASE LIST: ____ . ANY NEW PROBLEMS WITH YOUR MEDICATIONS? NO . WHEN DID YOU LAST EAT? ____ . WHEN DID YOU LAST DRINK? ____ . WHAT DID YOU LAST DRINK? ____ . NAME OF PERSON DRIVING YOU HOME? ____ . DO YOU HAVE ANY OTHER QUESTIONS OR CONCERNS NO . REVIEWED BY: PROVIDER: ELVIN RESENDIZ . VITAL SIGNS WT 195 LBS, HT 70 IN, BMI 27.98 INDEX, BP 142/76 MM HG, HR 91 /MIN, RR 16 /MIN, TEMP 97.0 F, OXYGEN SAT % 97%, NA INITIALS SC 14:47, REVIEWED BY: KG. EXAMINATION GENERAL EXAMINATION: PSYCHALERT , ORIENTED X 3 , APPROPRIATE MOOD AND AFFECT , APPEARS UNCOMFORTABLE. LUNGS:CLEAR TO AUSCULTATION BILATERALLY, NO WHEEZES, RALES OR RHONCHI. HEART:HEART RATE REGULAR. MUSCULOSKELETAL: MULTIPLE TRIGGER POINTS ACROSS SACRUM. POINT TENDERNESS OVER LUMBAR SPINOUS PROCESSES AND ACROSS THE RIGHT SACRUM . SLOW TO RISE TO STANDING PSOITION. GAIT WIDEBASED. NONANTALGIC.. ASSESSMENTS INTERVERTEBRAL DISC DISORDER WITH RADICULOPATHY OF LUMBAR REGION - M51.16 (PRIMARY) LUMBAR FACET ARTHROPATHY - M12.88 TREATMENT INTERVERTEBRAL DISC DISORDER WITH RADICULOPATHY OF LUMBAR REGION INJECTION FACET JOINT/NERVE MARJORIE/SACRALELVIN CROWE 12/03/2016 3:46:56 PM > DIAGNOSTIC LUMBAR FACET BLOCK ONRIGHT NOTES: CONTINUE CURRENT MEDS. MOIST HEAT, TENS UNIT, ICE TO AREAS OF MUSCLE SPASMS. PROCEDURE CODES FA211 ESTABILISHED PATIENT [facility] FACILITY CHARGE DISPOSITION & COMMUNICATION FOLLOW UP AFTER INJECTION (REASON: CHECK AUTH FOR RIGHT DIAGNOSOTIC LUMBAR FACET BLOCK) ELECTRONICALLY SIGNED BY MIRANDA NAVARRETE ON 12/26/2016 AT 11:35 AM EST DISCLAIMER : THIS IS A VISIT SUMMARY EXTRACTED FROM THE [employer] CHART. IT IS NOT A COPY OF THE [employer] PROGRESS NOTE. MTDD
== END ==
LOC: M PAIN 14:40
PROVIDERS: ATTEND Nurse Practitioner Family
DX: Z09 Encounter for follow-up examination after completed treatment for conditions other than malignant neoplasm (principal); G89.29 Other chronic pain; M51.16 Intervertebral disc disorders with radiculopathy, lumbar region; M12.88 Other specific arthropathies, not elsewhere classified, other specified site; E11.9 Type 2 diabetes mellitus without complications; G40.909 Epilepsy, unspecified, not intractable, without status epilepticus; I10 Essential (primary) hypertension; K21.9 Gastro-esophageal reflux disease without esophagitis; E78.00 Pure hypercholesterolemia, unspecified; G47.30 Sleep apnea, unspecified; G61.0 Guillain-Barre syndrome; Z79.82 Long term (current) use of aspirin; Z79.84 Long term (current) use of oral hypoglycemic drugs; Z79.891 Long term (current) use of opiate analgesic; Z86.79 Personal history of other diseases of the circulatory system

== ENCOUNTER → 2016-12-11 | Outpatient (CLI) | payer OTHER ==
[~2016-12-11] MED LIST changes: +BUPIVACAINE HCL 0.25% 30 ML VIAL As Ordered ONE; +ISOVUE-M 300 61% 15ML VIAL (Q9967) As Ordered ONE; +LIDOCAINE 1% SDV INJ 30 ML VIAL As Ordered ONE
--- NOTE | 2016-12-11 16:26 | REP ---
Partial lumbar spine series: Three views. History: Facet block for pain. 26 seconds of fluoroscopy time is reported. Findings: A sequence of three fluoroscopically obtained intraprocedural. The last image holds spot radiographs of the lumbar spine document various needle positions and contrast injections related to facet injection procedure. Signed by Nick Stanley MD 12/11/2016 05:08 P
--- NOTE | 2016-12-15 23:39 | ECWPNPC ---
PATIENT NAME: HAI DAIGLE : 1965 GENDER: MALE VISIT DATE: 12/11/2016 DISCHARGE DATE: 12/11/16 1426 VISIT LOCKED DATE TIME: PHYSICIAN: BONY ANTOINE RESOURCE: BONY ANTOINE REASON FOR APPOINTMENT 1. LFBD HISTORY OF PRESENT ILLNESS HISTORY OF PRESENT ILLNESS: PAIN THE PATIENT DESCRIBES THE PAIN... FALL RISK SCREENING: SCREENING :NO FALLS IN THE PAST YEAR CURRENT MEDICATIONS TAKING SOMA 350 MG TABLET 1 TABLET NEEDED ORALLY ONE AT BEDTIME MDD=1, NOTES: 12/09/16 TAKING PROSCAR 5 MG TABLET 1 TABLET ORALLY ONCE A DAY, NOTES: 12/11/16629 TAKING LIPITOR 20 MG TABLET 1 TABLET ORALLY ONCE A DAY, NOTES: 12/10/161999 TAKING CELEXA 20 MG TABLET 1 TABLET ORALLY ONCE A DAY, NOTES: 12/10/161999 TAKING ASPIR-81 81 MG TABLET DELAYED RELEASE 1 TABLET ORALLY ONCE A DAY, NOTES: 12/11/16629 TAKING FLECAINIDE ACETATE 50 MG TABLET 1 TABLET ORALLY EVERY 12 HRS, NOTES: 12/11/16629 TAKING ZEBETA 5 MG TABLET 1 TABLET ORALLY ONCE A DAY, NOTES: 12/10/161999 TAKING MULTI FOR HIM TABLET DIRECTED ORALLY , NOTES: 12/11/16629 TAKING VITAMIN B-12 500 MCG TABLET 1 TABLET ORALLY ONCE A DAY, NOTES: 12/11/16629 TAKING CITRACAL PLUS 400MG TABLET 2 TABS ORALLY AT BEDTIME, NOTES: 12/10/161999 TAKING TIZANIDINE HCL 2 MG TABLET 1 TABLET NEEDED ORALLY EVERY 8 HRS, NOTES: 12/10/161399 TAKING METFORMIN HCL 1000 MG TABLET 1 TABLET WITH MEALS ORALLY TWICE DAILY, NOTES: 12/10/161999 TAKING GABAPENTIN 300 MG TABLET ORALLY AT BEDTIME, NOTES: 12/10/161999 TAKING MAGNESIUM 400 MG CAPSULE 1 CAPSULE WITH A MEAL ORALLY ONCE A DAY, NOTES: 12/11/16629 TAKING VALSARTAN 160 MG TABLET 1 TAB ORALLY ONCE A DAY, NOTES: 12/11/16629 TAKING MELATONIN 3 MG TABLET ORALLY AT BEDTIME, NOTES: NONE TAKING GABAPENTIN 100 MG CAPSULE ORALLY MORNING, NOTES: 12/11/16629 TAKING COLCHICINE 0.6 MG CAPSULE ORALLY DIRECTED, NOTES: TAKES ONLY FOR GOUT FLARE UP TAKING PRILOSEC 40 MG CAPSULE DELAYED RELEASE 1 CAPSULE ORALLY ONCE A DAY, NOTES: 12/10/16 2000 TAKING PERCOCET 5-325 MG TABLET 1 TABLET ORALLY ONCE DAILY PRN FOR PAIN MDD=1, NOTES: 12/10/16 1400 TAKING AMOXICILLIN 500 MG CAPSULE 1 CAPSULE ORALLY EVERY 8 HRS, NOTES: 12/11/16 0630 NOT-TAKING VITAMIN D3 MAXIMUM STRENGTH 5000 UNIT CAPSULE 1 CAPSULE ORALLY DAILY NOT-TAKING VITAMIN D 1000 UNIT TABLET 1 TABLET ORALLY ONCE A DAY, NOTES: 0500 MEDICATION LIST REVIEWED AND RECONCILED WITH THE PATIENT PAST MEDICAL HISTORY DIABETES MIGRAINES PAF HTN GERD HIGH CHOLESTEROL GUILLAIN BARRE ALLERGIES N.K.D.A. SOCIAL HISTORY GENERAL: TOBACCO USE ARE YOU A:NONSMOKER LEARNING BARRIERS / SPECIAL NEEDS ORIENTED TO PLAN OF CARE: PATIENT, PAIN MANAGEMENT PATIENT, ORIENTED TO PLAN OF CARE: PATIENT, PAIN MANAGEMENT PATIENT. NEW PATIENT PAIN DIARY TODAY'S VISITNOTES FROM 0-10, WHAT LEVEL IS YOUR PAIN TODAY?0 PAIN CLINIC PFS, CLERGY, PUBLIC HEALTH REFERRALS PFS REFERRAL NEEDED?NO CLERGY REFERRAL NEEDED?NO PUBLIC HEALTH REFERRAL NEEDED?NO WAS THE PROVIDER NOTIFIED OF ANY PERTINENT INFO?NO PFS REFERRAL NEEDED?NO CLERGY REFERRAL NEEDED?NO PUBLIC HEALTH REFERRAL NEEDED?NO WAS THE PROVIDER NOTIFIED OF ANY PERTINENT INFO?NO REVIEW OF SYSTEMS CONSTITUTIONAL: ANY CHANGE IN YOUR MEDICAL CONDITION? NO . CHILLS NO . FEVER NO . INFECTION: DO YOU HAVE NEW INFECTIONS? NO . DO YOU HAVE HISTORY OF MRSA? NO . MUSCULOSKELETAL: ANY NEW PATTERNS OF PAIN OR NUMBNESS? NO . GASTROENTEROLOGY: ANY NEW CHANGE IN BOWEL CONTROL? NO . GENITOURINARY: ANY NEW CHANGE IN BLADDER CONTROL? NO . IS THERE A CHANCE YOU COULD BE ? NO . HEMATOLOGY/LYMPH: DO YOU TAKE ANY BLOOD THINNERS? (FOR EXAMPLE- COUMADIN, PLAVIX, AGGRENOX, PLATEL, PRADAXA, OR XARELTO) NO . WHEN WAS YOUR LAST DOSE? DATE: TIME: . NEUROLOGY: HAVE YOU FALLEN IN THE PAST 6 MONTHS? YES, PT STATES THAT HE FELL 4 MONTHS AGO, TRIPPED WHILE WALKING AT HOME, LANDED ON HIP, NO INJURY, NO REPORT TO ED . ANY NEW EXTREMITY NUMBNESS OR WEAKNESS? NO . CARDIOLOGY: DO YOU HAVE A PACEMAKER OR DEFIBRILLATOR? NO . RESPIRATORY: HAVE YOU BEEN SICK IN THE PAST WEEK? YES SINUS INFECTION X 1 WEEK . FEVER NO . FLU LIKE SYMPTOMS? NO . COUGH NO . INTEGUMENTARY: DO YOU HAVE ANY RASHES OR OPEN SORES? NO . ALLERGIC/IMMUNO: ARE YOU ALLERGIC TO SHELLFISH OR IV DYE? NO . ANY NEW ALLERGIES? NO . PSYCHIATRIC: DO YOU HAVE THOUGHTS OF HURTING YOURSELF OR SOMEONE ELSE? NO . ARE YOU ABUSED, NEGLECTED, OR IN AN UNSAFE ENVIRONMENT? NO . ENDOCRINOLOGY: ARE YOU DIABETIC? YES, FSBS 190 . OTHER: DO YOU NEED ANY PRESCRIPTIONS? NO . IF YES, PLEASE LIST: ____ . ANY NEW PROBLEMS WITH YOUR MEDICATIONS? NO . WHEN DID YOU LAST EAT? 12/11 6AM . WHEN DID YOU LAST DRINK? 12/11 10AM . WHAT DID YOU LAST DRINK? WATER . NAME OF PERSON DRIVING YOU HOME? MADDY . DO YOU HAVE ANY OTHER QUESTIONS OR CONCERNS NO . REVIEWED BY: PROVIDER: . VITAL SIGNS WT 195 LBS, HT 70 IN, BMI 27.98 INDEX, BP 130/80 MM HG, HR 78 /MIN, RR 18 /MIN, TEMP 96.6 F, OXYGEN SAT % 98, BLOOD GLUCOSE LEVEL 190, SAFE IN ENV? (Y/N) Y, REVIEWED BY: DS. ASSESSMENTS SPONDYLOSIS WITHOUT MYELOPATHY OR RADICULOPATHY, LUMBAR REGION - M47.816 (PRIMARY) SPONDYLOSIS WITHOUT MYELOPATHY OR RADICULOPATHY, LUMBOSACRAL REGION - M47.817 PROCEDURES PN LUMBAR FACET BLOCK DIAGNOSTIC PRE PROCEDURE DIAGNOSIS LUMBAR SPONDYLOSIS, LUMBOSACRAL SPONDYLOSIS POST PROCEDURE DIAGNOSIS LUMBAR SPONDYLOSIS, LUMBOSACRAL SPONDYLOSIS PROCEDURE RIGHT L4-L5 AND RIGHT L5-S1 FACET BLOCK DIAGNOSTIC NUMBER [address] 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 I EVALUATED THE PATIENT AND REVIEWED THE CHART. I WENT OVER THE RISKS, ALTERNATIVES, AND BENEFITS ASSOCIATED WITH THIS PROCEDURE. THE PATIENT WOULD LIKE TO PROCEED AND GAVE CONSENT TO PERFORM THE PROCEDURE. AGREED WITH THE PATIENT WE ARE DOING THIS PROCEDURE TO DETERMINE IF THE PATIENT IS A CANDIDATE FOR A RADIOFREQUENCY ABLATION OF THE FACETS JOINTS. THE PATIENT DENIES UNEXPLAINABLE WEIGHT LOSS, FEVER, CHILLS, OR NEW CHANGES IN URINARY OR BOWEL CONTROL DESCRIPTION OF PROCEDURE THE PATIENT WAS BROUGHT TO THE PROCEDURE ROOM AND PLACED IN THE PRONE POSITION. THE LUMBOSACRAL AREA WAS CLEANED WITH CHLORAPREP SOLUTION AND DRAPED ASEPTICALLY. THE PROCEDURE WAS DONE UNDER STERILE CONDITIONS. I CHECKED LATERALITY AND THE LEVEL WHERE THE PROCEDURE WAS GOING TO BE PERFORMED WITH THE PATIENT AND THE SUPPORTING STAFF AT THE MOMENT OF THE TIME OUT IN THE PROCEDURE ROOM. UNDER FLUOROSCOPIC GUIDANCE, TARGETS WERE SELECTED AT THE INTERSECTION OF THE RIGHT TRANSVERSE PROCESS OF L4, L5 AND ALA OF S1 WITH ITS RESPECTIVE SUPERIOR ARTICULAR PROCESS. LIDOCAINE WAS USED TO NUMB THE SKIN AND THE SUBCUTANEOUS TISSUE BELOW IT. SPINAL NEEDLE, 22-GAUGE WAS ADVANCED UNDER FLUOROSCOPIC GUIDANCE AND FOLLOWING PATIENT FEEDBACK UNTIL THE TARGETS WERE REACHED. POSITION OF THE NEEDLES WAS VERIFIED WITH AP AND LATERAL VIEWS. AFTER PROPER POSITION OF THE NEEDLES WAS ACHIEVED, ISOVUE-M DYE 30% 0.1 ML WAS INJECTED AT EACH SITE SHOWING ADEQUATE SPREAD OF THE DYE. THEN A SOLUTION OF 0.4 ML OF BUPIVACAINE 0.25% WAS INJECTED AT EACH SITE. THERE WAS NO EVIDENCE OF BLOOD, PARESTHESIA OR CEREBROSPINAL FLUID DURING THE PROCEDURE. THE PATIENT WAS SENT TO THE RECOVERY ROOM. THE PATIENT WAS MOVING THE EXTREMITIES AND DOING WELL. THERE WAS NO COMPLICATION DURING THE PROCEDURE. FLUOROSCOPY TIME WAS 26 SECONDS POST PROCEDURE NOTE THE PATIENT WILL DOCUMENT HIS PAIN LEVEL AND RESPONSE TO THIS PROCEDURE EVERY 30 MINUTES. THE PATIENT WILL BE SEEN IN A FOLLOW UP IN THE NEXT FEW WEEKS. FURTHER DETERMINATION FOR HIS CASE WILL BE DONE AT THE NEXT VISIT. INSTRUCTIONS WERE GIVEN, QUESTIONS WERE ANSWERED, AND THE PATIENT EXPRESSED UNDERSTANDING AND AGREED WITH THE PLAN. I, VIC SABA, DOCUMENTED THE ABOVE INFORMATION ACTING A SCRIBE FOR DR. ANTOINE. I, DR. ANTOINE, HAVE REVIEWED THE ABOVE DOCUMENT, SCRIBED BY VIC SABA, AND I VERIFY THAT IT IS ACCURATE DIAGNOSTIC IMAGING [facility] FACET BLOCK (PAIN)[id number] PROCEDURE CODES 76231 INJ PARAVERT F JNT L/S 1 LEV 48282 INJ PARAVERT F JNT L/S 2 LEV 6045F RADXPS IN END [id number] PXD FOLLOW UP 3 WEEKS ELECTRONICALLY SIGNED BY BONY ANTOINE MD ON 12/15/2016 AT 08:34 PM EST DISCLAIMER : THIS IS A VISIT SUMMARY EXTRACTED FROM THE [employer] CHART. IT IS NOT A COPY OF THE [employer] PROGRESS NOTE. MTDD
== END ==
LOC: M PAIN 13:00
PROVIDERS: ATTEND Anesthesiology
DX: G89.29 Other chronic pain (principal); M47.816 Spondylosis without myelopathy or radiculopathy, lumbar region; M47.817 Spondylosis without myelopathy or radiculopathy, lumbosacral region; M54.5 Low back pain; E11.9 Type 2 diabetes mellitus without complications; I10 Essential (primary) hypertension; G43.909 Migraine, unspecified, not intractable, without status migrainosus; Z79.891 Long term (current) use of opiate analgesic; Z79.899 Other long term (current) drug therapy; Z79.2 Long term (current) use of antibiotics; Z79.84 Long term (current) use of oral hypoglycemic drugs; G61.0 Guillain-Barre syndrome
CPT/HCPCS: 64493; 64494; Q9967

== ENCOUNTER → 2016-12-19 | Outpatient (CLI) | payer OTHER ==
[~2016-12-19] MED LIST changes: -BUPIVACAINE HCL 0.25% 30 ML VIAL As Ordered ONE; -ISOVUE-M 300 61% 15ML VIAL (Q9967) As Ordered ONE; -LIDOCAINE 1% SDV INJ 30 ML VIAL As Ordered ONE
--- NOTE | 2017-01-02 01:43 | ECWPNPC ---
PATIENT NAME: HAI DAIGLE : 1965 GENDER: MALE VISIT DATE: 12/19/2016 DISCHARGE DATE: 12/19/16 1023 VISIT LOCKED DATE TIME: PHYSICIAN: ELVIN CROWE RESOURCE: ELVIN CROWE REASON FOR APPOINTMENT 1. BACK HISTORY OF PRESENT ILLNESS HISTORY OF PRESENT ILLNESS: PAIN THE PATIENT DESCRIBES THE PAIN... FALL RISK SCREENING: SCREENING :NO FALLS IN THE PAST YEAR TODAY'S VISIT: NOTES: RATES PAIN TODAY 6-7/10. PAIN IS CENTERED IN LOW BACK WITH RADIATION TO RIGHT BUTTUCK. IS S/P DIAGNIOSTIC LUMBAR FACET BLOCK #2 ON 12/11/16. NOTES PAIN PRIOR TO INJECTION 6-7/10 - AFTER INJECTION FOR 6-8 HOURS WAS 0/10. PAIN RETURNED TO 6-7/10 NEXT AM. IS HAVING TROUBLE WITH PROLONGED WALKING.. CURRENT MEDICATIONS TAKING SOMA 350 MG TABLET 1 TABLET NEEDED ORALLY ONE AT BEDTIME MDD=1 TAKING PROSCAR 5 MG TABLET 1 TABLET ORALLY ONCE A DAY TAKING LIPITOR 20 MG TABLET 1 TABLET ORALLY ONCE A DAY TAKING ASPIR-81 81 MG TABLET DELAYED RELEASE 1 TABLET ORALLY ONCE A DAY TAKING CELEXA 20 MG TABLET 1 TABLET ORALLY ONCE A DAY TAKING FLECAINIDE ACETATE 50 MG TABLET 1 TABLET ORALLY EVERY 12 HRS TAKING ZEBETA 5 MG TABLET 1 TABLET ORALLY ONCE A DAY TAKING MULTI FOR HIM TABLET DIRECTED ORALLY TAKING VITAMIN B-12 500 MCG TABLET 1 TABLET ORALLY ONCE A DAY TAKING CITRACAL PLUS 400MG TABLET 2 TABS ORALLY AT BEDTIME TAKING TIZANIDINE HCL 2 MG TABLET 1 TABLET NEEDED ORALLY EVERY 8 HRS TAKING METFORMIN HCL 1000 MG TABLET 1 TABLET WITH MEALS ORALLY TWICE DAILY TAKING GABAPENTIN 300 MG TABLET ORALLY AT BEDTIME TAKING MAGNESIUM 400 MG CAPSULE 1 CAPSULE WITH A MEAL ORALLY ONCE A DAY TAKING VALSARTAN 160 MG TABLET 1 TAB ORALLY ONCE A DAY TAKING MELATONIN 3 MG TABLET ORALLY AT BEDTIME TAKING GABAPENTIN 100 MG CAPSULE ORALLY MORNING TAKING COLCHICINE 0.6 MG CAPSULE ORALLY DIRECTED, NOTES: TAKES ONLY FOR GOUT FLARE UP TAKING PRILOSEC 40 MG CAPSULE DELAYED RELEASE 1 CAPSULE ORALLY ONCE A DAY TAKING PERCOCET 5-325 MG TABLET 1 TABLET ORALLY ONCE DAILY PRN FOR PAIN MDD=1 NOT-TAKING AMOXICILLIN 500 MG CAPSULE 1 CAPSULE ORALLY EVERY 8 HRS, NOTES: 12/11/16 0630 NOT-TAKING VITAMIN D3 MAXIMUM STRENGTH 5000 UNIT CAPSULE 1 CAPSULE ORALLY DAILY NOT-TAKING VITAMIN D 1000 UNIT TABLET 1 TABLET ORALLY ONCE A DAY, NOTES: 0500 MEDICATION LIST REVIEWED AND RECONCILED WITH THE PATIENT PAST MEDICAL HISTORY DIABETES MIGRAINES PAF HTN GERD HIGH CHOLESTEROL GUILLAIN BARRE ALLERGIES N.K.D.A. SOCIAL HISTORY GENERAL: TOBACCO USE ARE YOU A:NONSMOKER LEARNING BARRIERS / SPECIAL NEEDS ORIENTED TO PLAN OF CARE: PATIENT, PAIN MANAGEMENT PATIENT, ORIENTED TO PLAN OF CARE: PATIENT, PAIN MANAGEMENT PATIENT. NEW PATIENT PAIN DIARY TODAY'S VISITNOTES FROM 0-10, WHAT LEVEL IS YOUR PAIN TODAY?0 PAIN CLINIC PFS, CLERGY, PUBLIC HEALTH REFERRALS PFS REFERRAL NEEDED?NO CLERGY REFERRAL NEEDED?NO PUBLIC HEALTH REFERRAL NEEDED?NO WAS THE PROVIDER NOTIFIED OF ANY PERTINENT INFO?NO PFS REFERRAL NEEDED?NO CLERGY REFERRAL NEEDED?NO PUBLIC HEALTH REFERRAL NEEDED?NO WAS THE PROVIDER NOTIFIED OF ANY PERTINENT INFO?NO REVIEW OF SYSTEMS CONSTITUTIONAL: ANY CHANGE IN YOUR MEDICAL CONDITION? NO . CHILLS NO . FEVER NO . INFECTION: DO YOU HAVE NEW INFECTIONS? NO . DO YOU HAVE HISTORY OF MRSA? NO . MUSCULOSKELETAL: ANY NEW PATTERNS OF PAIN OR NUMBNESS? NO . GASTROENTEROLOGY: ANY NEW CHANGE IN BOWEL CONTROL? NO . GENITOURINARY: ANY NEW CHANGE IN BLADDER CONTROL? NO . IS THERE A CHANCE YOU COULD BE ? NO . HEMATOLOGY/LYMPH: DO YOU TAKE ANY BLOOD THINNERS? (FOR EXAMPLE- COUMADIN, PLAVIX, AGGRENOX, PLATEL, PRADAXA, OR XARELTO) NO . WHEN WAS YOUR LAST DOSE? DATE: TIME: . NEUROLOGY: HAVE YOU FALLEN IN THE PAST 6 MONTHS? NO . ANY NEW EXTREMITY NUMBNESS OR WEAKNESS? NO . CARDIOLOGY: DO YOU HAVE A PACEMAKER OR DEFIBRILLATOR? NO . RESPIRATORY: HAVE YOU BEEN SICK IN THE PAST WEEK? NO . FEVER NO . FLU LIKE SYMPTOMS? NO . COUGH NO . INTEGUMENTARY: DO YOU HAVE ANY RASHES OR OPEN SORES? NO . ALLERGIC/IMMUNO: ARE YOU ALLERGIC TO SHELLFISH OR IV DYE? NO . ANY NEW ALLERGIES? NO . PSYCHIATRIC: DO YOU HAVE THOUGHTS OF HURTING YOURSELF OR SOMEONE ELSE? NO . ARE YOU ABUSED, NEGLECTED, OR IN AN UNSAFE ENVIRONMENT? NO . ENDOCRINOLOGY: ARE YOU DIABETIC? YES . OTHER: DO YOU NEED ANY PRESCRIPTIONS? NO . IF YES, PLEASE LIST: ____ . ANY NEW PROBLEMS WITH YOUR MEDICATIONS? NO . WHEN DID YOU LAST EAT? ____ . WHEN DID YOU LAST DRINK? ____ . WHAT DID YOU LAST DRINK? ____ . NAME OF PERSON DRIVING YOU HOME? ____ . DO YOU HAVE ANY OTHER QUESTIONS OR CONCERNS NO . REVIEWED BY: PROVIDER: ELVIN RESENDIZ . VITAL SIGNS WT 195 LBS, HT 70 IN, BMI 27.98 INDEX, BP 154/100 R ARM, REPEAT BP 181/99 R ARM, HR 66 /MIN, RR 18 /MIN, TEMP 97.0 F, OXYGEN SAT % 97%, NA INITIALS SC 09:38. EXAMINATION GENERAL EXAMINATION: PSYCHALERT , ORIENTED X 3 , APPROPRIATE MOOD AND AFFECT , APPEARS UNCOMFORTABLE. LUNGS:CLEAR TO AUSCULTATION BILATERALLY, NO WHEEZES, RALES OR RHONCHI. HEART:HEART RATE REGULAR. MUSCULOSKELETAL: MULTIPLE TRIGGER POINTS ACROSS SACRUM. POINT TENDERNESS OVER LUMBAR SPINOUS PROCESSES AND ACROSS THE RIGHT SACRUM . SLOW TO RISE TO STANDING PSOITION. GAIT WIDEBASED. NONANTALGIC.. ASSESSMENTS SPONDYLOSIS WITHOUT MYELOPATHY OR RADICULOPATHY, LUMBAR REGION - M47.816 (PRIMARY) SPONDYLOSIS WITHOUT MYELOPATHY OR RADICULOPATHY, LUMBOSACRAL REGION - M47.817 TREATMENT SPONDYLOSIS WITHOUT MYELOPATHY OR RADICULOPATHY, LUMBAR REGION REFILL PERCOCET TABLET, 5-325 MG, 1 TABLET, ORALLY, ONCE DAILY PRN FOR PAIN MDD=1, 30 DAY(S), 30, REFILLS 0 RF FACET LUMBAR ELVIN SMITH 12/19/2016 10:12:06 AM > RIGHT RF FACET LUMBAR SACRAL EAELVIN CROWE 12/19/2016 10:12:19 AM > RIGHT CLINICAL NOTES: ISTOP REGISTRY REVIEWED AND DEMNOSTRATES COMPLLIANCE. BRINGS IN MEDICATIONS WHICH IS APPROPRIATE FOR WHAT WAS DISPENSED. RECENT URINE TOXICOLOGY REVIEWED. NO UNAUTHORIZED MEDICATIONS. NO ILLICIT SUBSTANCES AND PRESCRIBED MEDICATIONS WERE PRESENT. PROCEDURE CODES FA211 ESTABILISHED PATIENT [facility] CHARGE DISPOSITION & COMMUNICATION FOLLOW UP MARIE RF (REASON: CHECK AUTH FOR RF) ELECTRONICALLY SIGNED BY MIRANDA NAVARRETE ON 01/01/2017 AT 02:49 PM EST DISCLAIMER : THIS IS A VISIT SUMMARY EXTRACTED FROM THE [employer] CHART. IT IS NOT A COPY OF THE [employer] PROGRESS NOTE. MTDD
== END ==
LOC: M PAIN 09:40
PROVIDERS: ATTEND Nurse Practitioner Family
DX: Z09 Encounter for follow-up examination after completed treatment for conditions other than malignant neoplasm (principal); G89.29 Other chronic pain; M47.816 Spondylosis without myelopathy or radiculopathy, lumbar region; M47.817 Spondylosis without myelopathy or radiculopathy, lumbosacral region; E11.9 Type 2 diabetes mellitus without complications; I48.0 Paroxysmal atrial fibrillation; I10 Essential (primary) hypertension; K21.9 Gastro-esophageal reflux disease without esophagitis; E78.00 Pure hypercholesterolemia, unspecified; G61.0 Guillain-Barre syndrome; M46.96 Unspecified inflammatory spondylopathy, lumbar region; M79.1 Myalgia; M51.16 Intervertebral disc disorders with radiculopathy, lumbar region; M12.88 Other specific arthropathies, not elsewhere classified, other specified site; Z79.891 Long term (current) use of opiate analgesic; Z79.82 Long term (current) use of aspirin; Z79.84 Long term (current) use of oral hypoglycemic drugs; Z79.899 Other long term (current) drug therapy

== ENCOUNTER → 2016-12-24 | Outpatient (CLI) | payer OTHER ==
[~2016-12-24] MED LIST changes: +BUPIVACAINE HCL 0.25% 30 ML VIAL As Ordered ONE; +ISOVUE-M 300 61% 15ML VIAL (Q9967) As Ordered ONE; +LIDOCAINE 1% SDV INJ 30 ML VIAL As Ordered ONE; +TRIAMCINOLONE ACETONIDE SUSP 40 MG/ML VIAL (J3301) As Ordered ONE
--- NOTE | 2016-12-25 08:40 | REP ---
FLUOROSCOPIC GUIDANCE FOR LUMBAR RADIOFREQUENCY ABLATION: 12/24/2016. Clinical history, back pain. Findings: Five images from C-arm fluoroscopy provided to Dr. prashanth Steinberg of the pain clinic for lumbar radiofrequency ablation. Images show needles at the L3-4 through L5-S1 levels with leads adjacent to them. A true lateral was also included for depth. Fluoroscopy time: 1 minute 16 seconds. Signed by Barber Duarte MD 12/25/2016 08:31 A
--- NOTE | 2016-12-28 23:24 | ECWPNPC ---
PATIENT NAME: HAI DAIGLE : 1965 GENDER: MALE VISIT DATE: 12/24/2016 DISCHARGE DATE: 12/24/16 1228 VISIT LOCKED DATE TIME: PHYSICIAN: BONY ANTOINE RESOURCE: BONY ANTOINE REASON FOR APPOINTMENT 1. LUMBAR RF HISTORY OF PRESENT ILLNESS HISTORY OF PRESENT ILLNESS: PAIN THE PATIENT DESCRIBES THE PAIN... FALL RISK SCREENING: SCREENING :NO FALLS IN THE PAST YEAR CURRENT MEDICATIONS TAKING SOMA 350 MG TABLET 1 TABLET NEEDED ORALLY ONE AT BEDTIME MDD=1 TAKING PROSCAR 5 MG TABLET 1 TABLET ORALLY ONCE A DAY, NOTES: 12/24/16 0700 TAKING LIPITOR 20 MG TABLET 1 TABLET ORALLY ONCE A DAY, NOTES: 12/23/16 1800 TAKING ASPIR-81 81 MG TABLET DELAYED RELEASE 1 TABLET ORALLY ONCE A DAY, NOTES: 12/24/16 0700 TAKING CELEXA 20 MG TABLET 1 TABLET ORALLY ONCE A DAY, NOTES: 12/23/16 1800 TAKING FLECAINIDE ACETATE 50 MG TABLET 1 TABLET ORALLY EVERY 12 HRS, NOTES: 12/24/16 0700 TAKING ZEBETA 5 MG TABLET 1 TABLET ORALLY ONCE A DAY, NOTES: 12/23/16 1800 TAKING MULTI FOR HIM TABLET DIRECTED ORALLY , NOTES: 12/24/16 0700 TAKING VITAMIN B-12 500 MCG TABLET 1 TABLET ORALLY ONCE A DAY, NOTES: 12/24/16 0700 TAKING CITRACAL PLUS 400MG TABLET 2 TABS ORALLY AT BEDTIME, NOTES: 12/23/16 1800 TAKING TIZANIDINE HCL 2 MG TABLET 1 TABLET NEEDED ORALLY EVERY 8 HRS, NOTES: 12/23/16 2100 TAKING METFORMIN HCL 1000 MG TABLET 1 TABLET WITH MEALS ORALLY TWICE DAILY, NOTES: 12/23/16 1800 TAKING GABAPENTIN 300 MG TABLET ORALLY AT BEDTIME, NOTES: 12/24/16 TAKING MAGNESIUM 400 MG CAPSULE 1 CAPSULE WITH A MEAL ORALLY ONCE A DAY, NOTES: 12/24/16 0700 TAKING VALSARTAN 160 MG TABLET 1 TAB ORALLY ONCE A DAY, NOTES: 12/23/16 1800 TAKING MELATONIN 3 MG TABLET ORALLY AT BEDTIME TAKING GABAPENTIN 100 MG CAPSULE ORALLY MORNING, NOTES: 12/24/16 0700 TAKING COLCHICINE 0.6 MG CAPSULE ORALLY DIRECTED, NOTES: TAKES ONLY FOR GOUT FLARE UP TAKING PRILOSEC 40 MG CAPSULE DELAYED RELEASE 1 CAPSULE ORALLY ONCE A DAY, NOTES: 12/24/16 0700 TAKING PERCOCET 5-325 MG TABLET 1 TABLET ORALLY ONCE DAILY PRN FOR PAIN MDD=1, NOTES: 12/23/16 2100 NOT-TAKING AMOXICILLIN 500 MG CAPSULE 1 CAPSULE ORALLY EVERY 8 HRS, NOTES: 12/11/16 0630 NOT-TAKING VITAMIN D3 MAXIMUM STRENGTH 5000 UNIT CAPSULE 1 CAPSULE ORALLY DAILY NOT-TAKING VITAMIN D 1000 UNIT TABLET 1 TABLET ORALLY ONCE A DAY, NOTES: 0500 MEDICATION LIST REVIEWED AND RECONCILED WITH THE PATIENT PAST MEDICAL HISTORY DIABETES MIGRAINES PAF HTN GERD HIGH CHOLESTEROL GUILLAIN BARRE ALLERGIES N.K.D.A. SOCIAL HISTORY GENERAL: TOBACCO USE ARE YOU A:NONSMOKER LEARNING BARRIERS / SPECIAL NEEDS ORIENTED TO PLAN OF CARE: PATIENT, PAIN MANAGEMENT PATIENT, ORIENTED TO PLAN OF CARE: PATIENT, PAIN MANAGEMENT PATIENT. NEW PATIENT PAIN DIARY TODAY'S VISITNOTES FROM 0-10, WHAT LEVEL IS YOUR PAIN TODAY?0 PAIN CLINIC PFS, CLERGY, PUBLIC HEALTH REFERRALS PFS REFERRAL NEEDED?NO CLERGY REFERRAL NEEDED?NO PUBLIC HEALTH REFERRAL NEEDED?NO WAS THE PROVIDER NOTIFIED OF ANY PERTINENT INFO?NO PFS REFERRAL NEEDED?NO CLERGY REFERRAL NEEDED?NO PUBLIC HEALTH REFERRAL NEEDED?NO WAS THE PROVIDER NOTIFIED OF ANY PERTINENT INFO?NO HOSPITALIZATION/MAJOR DIAGNOSTIC PROCEDURE SURGERY RELATED GUILLAIN BARRE REQUIRING PLASMAPHERESIS, IVIG, STEROIDS AND INTUBATION [facility] 09/2015 REVIEW OF SYSTEMS CONSTITUTIONAL: ANY CHANGE IN YOUR MEDICAL CONDITION? NO . CHILLS NO . FEVER NO . INFECTION: DO YOU HAVE NEW INFECTIONS? NO . DO YOU HAVE HISTORY OF MRSA? NO . MUSCULOSKELETAL: ANY NEW PATTERNS OF PAIN OR NUMBNESS? NO . GASTROENTEROLOGY: ANY NEW CHANGE IN BOWEL CONTROL? NO . GENITOURINARY: ANY NEW CHANGE IN BLADDER CONTROL? NO . IS THERE A CHANCE YOU COULD BE ? NO . HEMATOLOGY/LYMPH: DO YOU TAKE ANY BLOOD THINNERS? (FOR EXAMPLE- COUMADIN, PLAVIX, AGGRENOX, PLATEL, PRADAXA, OR XARELTO) NO . WHEN WAS YOUR LAST DOSE? DATE: TIME: . NEUROLOGY: HAVE YOU FALLEN IN THE PAST 6 MONTHS? NO . ANY NEW EXTREMITY NUMBNESS OR WEAKNESS? NO . CARDIOLOGY: DO YOU HAVE A PACEMAKER OR DEFIBRILLATOR? NO . RESPIRATORY: HAVE YOU BEEN SICK IN THE PAST WEEK? NO . FEVER NO . FLU LIKE SYMPTOMS? NO . COUGH NO . INTEGUMENTARY: DO YOU HAVE ANY RASHES OR OPEN SORES? NO . ALLERGIC/IMMUNO: ARE YOU ALLERGIC TO SHELLFISH OR IV DYE? NO . ANY NEW ALLERGIES? NO . PSYCHIATRIC: DO YOU HAVE THOUGHTS OF HURTING YOURSELF OR SOMEONE ELSE? NO . ARE YOU ABUSED, NEGLECTED, OR IN AN UNSAFE ENVIRONMENT? NO . ENDOCRINOLOGY: ARE YOU DIABETIC? NO . OTHER: DO YOU NEED ANY PRESCRIPTIONS? NO . IF YES, PLEASE LIST: ____ . ANY NEW PROBLEMS WITH YOUR MEDICATIONS? NO . WHEN DID YOU LAST EAT? ____12/24/16 0730 . WHEN DID YOU LAST DRINK? ____12/24/16 1100 . WHAT DID YOU LAST DRINK? ____WATER . NAME OF PERSON DRIVING YOU HOME? ____AUDREY DAIGLE . DO YOU HAVE ANY OTHER QUESTIONS OR CONCERNS NO . REVIEWED BY: PROVIDER: . VITAL SIGNS WT 195 LBS, HT 70 IN, BMI 27.98 INDEX, BP 177/106 MM HG, REPEAT BP 148/92 MANUAL, HR 70 /MIN, RR 18 /MIN, TEMP 97.6 F, OXYGEN SAT % 99%, NA INITIALS SC 14:25, REVIEWED BY: LS. ASSESSMENTS SPONDYLOSIS WITHOUT MYELOPATHY OR RADICULOPATHY, LUMBAR REGION - M47.816 (PRIMARY) SPONDYLOSIS WITHOUT MYELOPATHY OR RADICULOPATHY, LUMBOSACRAL REGION - M47.817 PROCEDURES PN RADIOFREQUENCY PRE PROCEDURE DIAGNOSES 1. LUMBAR SPONDYLOSIS. 2. LUMBOSACRAL SPONDYLOSIS POST PROCEDURE DIAGNOSES 1. LUMBAR SPONDYLOSIS. 2. LUMBOSACRAL SPONDYLOSIS PROCEDURE RIGHT L4-L5 AND RIGHT L5-S1 FACET RADIOFREQUENCY SURGEON DR. BONY ANTOINE CLINICAL PSYCHOLOGIST PRIVATE PRACTICE NONE ANESTHESIA LOCAL PRE PROCEDURE REPORT THE PATIENT HAS HISTORY OF CHRONIC LOW BACK PAIN. I EVALUATE THE PATIENT AND REVIEWED THE CHART. I WENT OVER THE RISKS, ALTERNATIVES, AND BENEFITS ASSOCIATED WITH THIS PROCEDURE. THE PATIENT WOULD LIKE TO PROCEED AND GIVE CONSENT TO PERFORMED THE PROCEDURE. THE PATIENT DENIES UNEXPLAINABLE WEIGHT LOSS, FEVER, CHILLS, OR NEW CHANGES IN URINARY OR BOWEL CONTROL DESCRIPTION OF PROCEDURE THE PATIENT WAS BROUGHT TO THE PROCEDURE ROOM AND PLACED IN THE PRONE POSITION. THE LUMBOSACRAL AREA WAS CLEANED WITH CHLORAPREP SOLUTION AND DRAPED ASEPTICALLY. THE PROCEDURE WAS DONE UNDER STERILE CONDITIONS. I CHECKED LATERALITY AND THE LEVEL WHERE THE PROCEDURE WAS GOING TO BE PERFORMED WITH THE PATIENT AND THE SUPPORTING STAFF AT THE MOMENT OF THE TIME OUT IN THE PROCEDURE ROOM. UNDER FLUOROSCOPIC GUIDANCE, TARGETS WERE SELECTED AT THE INTERSECTION OF THE RIGHT TRANSVERSE PROCESS OF L4, L5 AND ALA OF S1 WITH ITS RESPECTIVE SUPERIOR ARTICULAR PROCESS. LIDOCAINE WAS USED TO NUMB THE SKIN AND THE SUBCUTANEOUS TISSUE BELOW IT. RADIOFREQUENCY NEEDLES 22-GAUGE 15 CM LONG WITH 10 MM ACTIVE CURVE TIP WERE ADVANCED UNDER FLUOROSCOPIC GUIDANCE AND FOLLOWING PATIENT FEEDBACK UNTIL THE TARGET AREA WAS REACHED. POSITION OF THE NEEDLES WAS VERIFIED WITH AP AND LATERAL VIEWS. AFTER PROPER POSITION OF THE NEEDLE WAS ACHIEVED, WE WORKED WITH THE RIGHT SELECTED MEDIAN BRANCHES OF L4-L5 AND L5-S1. WE MEASURED THE CORRESPONDING IMPEDANCES, SENSORY STIMULATION AND MOTOR RESPONSES INDICATED IN THE RADIOFREQUENCY WORK SHEET. POSITION OF THE NEEDLES WAS VERIFIED AGAIN WITH AP AND LATERAL VIEWS. LIDOCAINE 1%, 2 ML, WAS INJECTED AT EACH LEVEL. RADIOFREQUENCY WAS DONE AT EACH LEVEL AT 80 DEGREES FOR 90 SECONDS. AFTER RADIOFREQUENCY WAS DONE, THE PATIENT RECEIVED BUPIVACAINE 0.125% 1 CC WITH KENALOG 5 MG AT EACH SITE. THERE WAS NO EVIDENCE OF BLOOD, PARESTHESIA OR CEREBROSPINAL FLUID DURING THE PROCEDURE. THE PATIENT WAS SENT TO THE RECOVERY ROOM. THE PATIENT WAS MOVING THE EXTREMITIES AND DOING WELL. THERE WAS NO COMPLICATION DURING THE PROCEDURE. FLUOROSCOPY TIME WAS 1 MINUTE AND 16 SECONDS POST PROCEDURE NOTE THE PATIENT WILL BE SEEN IN A FOLLOW UP IN THE NEXT FEW WEEKS. INSTRUCTIONS WERE GIVEN, QUESTIONS WERE ANSWERED, AND THE PATIENT EXPRESSED UNDERSTANDING AND AGREES WITH THE PLAN. INSTRUCTIONS WERE GIVEN, QUESTIONS WERE ANSWERED, PATIENT REPORTS UNDERSTANDING AND AGREES WITH THE PLAN. I, HOWARD BOUDREAUX, DOCUMENTED THE ABOVE INFORMATION ACTING A SCRIBE FOR DR. ANTOINE. I HAVE REVIEWED THE ABOVE DOCUMENT, WRITTEN BY HOWARD BOUDREAUX SCRIBOlaf AND I VERIFY THAT IT IS ACCURATE. DIAGNOSTIC IMAGING [facility] FLUORO GUIDANCE (PAIN)[id number] PREVENTIVE MEDICINE PAIN CLINIC TEACHING: PROCEDURE TEACHING POST RADIOFREQUENCY INSTRUCTIONS REVIEWED WITH PT. VERBALIZED UNDERSTANDING.. PROCEDURE CODES 16212 DESTROY LUMB/[place] JNT 64218 DESTROY L/S FACET JNT ADDL 6045F RADXPS IN END [id number] PXD DISPOSITION & COMMUNICATION FOLLOW UP 3 WEEKS ELECTRONICALLY SIGNED BY BONY ANTOINE MD ON 12/28/2016 AT 09:16 PM EST DISCLAIMER : THIS IS A VISIT SUMMARY EXTRACTED FROM THE [employer] CHART. IT IS NOT A COPY OF THE [employer] PROGRESS NOTE. MTDD
== END ==
LOC: M PAIN 14:20
PROVIDERS: ATTEND Anesthesiology
DX: G89.29 Other chronic pain (principal); M47.816 Spondylosis without myelopathy or radiculopathy, lumbar region; M47.817 Spondylosis without myelopathy or radiculopathy, lumbosacral region; I10 Essential (primary) hypertension; E11.9 Type 2 diabetes mellitus without complications; K21.9 Gastro-esophageal reflux disease without esophagitis; E78.00 Pure hypercholesterolemia, unspecified; G43.909 Migraine, unspecified, not intractable, without status migrainosus; I48.0 Paroxysmal atrial fibrillation; G61.0 Guillain-Barre syndrome; Z79.899 Other long term (current) drug therapy; Z79.891 Long term (current) use of opiate analgesic; Z79.84 Long term (current) use of oral hypoglycemic drugs; Z79.82 Long term (current) use of aspirin
CPT/HCPCS: 64635; 64636; J3301; Q9967

== ENCOUNTER → 2017-01-16 | Outpatient (CLI) | payer OTHER ==
[~2017-01-16] MED LIST changes: -BUPIVACAINE HCL 0.25% 30 ML VIAL As Ordered ONE; -ISOVUE-M 300 61% 15ML VIAL (Q9967) As Ordered ONE; -LIDOCAINE 1% SDV INJ 30 ML VIAL As Ordered ONE; -TRIAMCINOLONE ACETONIDE SUSP 40 MG/ML VIAL (J3301) As Ordered ONE
--- NOTE | 2017-01-18 00:39 | ECWPNPC ---
PATIENT NAME: HAI DAIGLE : 1965 GENDER: MALE VISIT DATE: 01/16/2017 DISCHARGE DATE: 01/16/17918 VISIT LOCKED DATE TIME: PHYSICIAN: ELVIN CROWE RESOURCE: ELVIN CROWE REASON FOR APPOINTMENT 1. POST PROCEDURE HISTORY OF PRESENT ILLNESS HISTORY OF PRESENT ILLNESS: PAIN THE PATIENT DESCRIBES THE PAIN... FALL RISK SCREENING: SCREENING :NO FALLS IN THE PAST YEAR TODAY'S VISIT: NOTES: IS S/P RIGHT RADIO FREQUENCY DENERVATION PROCEDURE ON 12/24/16. INITIALLY WAS QUITE UNCOMFORTABLE NOW PAIN MUCH IMPROVED, ABLE TO SIT AND STAND NEEDED. HAS BEEN ABLE TO RETURN TO WORK AND IS CURRENTLY TAKING NO PAIN MEDSRATES PAIN TODAY 12/20, WITH SOME TENDERNESS ALONG THE CENTER SPINE DESCRIBES PAIN INTERMITTANT, SHARP AND STABBING.. CURRENT MEDICATIONS TAKING SOMA 350 MG TABLET 1 TABLET NEEDED ORALLY ONE AT BEDTIME MDD=1 TAKING PROSCAR 5 MG TABLET 1 TABLET ORALLY ONCE A DAY, NOTES: 12/24/16 0700 TAKING LIPITOR 20 MG TABLET 1 TABLET ORALLY ONCE A DAY, NOTES: 12/23/16 1800 TAKING ASPIR-81 81 MG TABLET DELAYED RELEASE 1 TABLET ORALLY ONCE A DAY, NOTES: 12/24/16 0700 TAKING CELEXA 20 MG TABLET 1 TABLET ORALLY ONCE A DAY, NOTES: 12/23/16 1800 TAKING FLECAINIDE ACETATE 50 MG TABLET 1 TABLET ORALLY EVERY 12 HRS, NOTES: 12/24/16 07 TAKING ZEBETA 5 MG TABLET 1 TABLET ORALLY ONCE A DAY, NOTES: 12/23/16 1800 TAKING MULTI FOR HIM TABLET DIRECTED ORALLY , NOTES: 12/24/16 07 TAKING VITAMIN B-12 500 MCG TABLET 1 TABLET ORALLY ONCE A DAY, NOTES: 12/24/16 07 TAKING CITRACAL PLUS 400MG TABLET 2 TABS ORALLY AT BEDTIME, NOTES: 12/23/16 1800 TAKING TIZANIDINE HCL 2 MG TABLET 1 TABLET NEEDED ORALLY EVERY 8 HRS, NOTES: 12/23/16 2100 TAKING METFORMIN HCL 1000 MG TABLET 1 TABLET WITH MEALS ORALLY TWICE DAILY, NOTES: 12/23/16 1800 TAKING GABAPENTIN 300 MG TABLET ORALLY AT BEDTIME, NOTES: 12/24/16 TAKING MAGNESIUM 400 MG CAPSULE 1 CAPSULE WITH A MEAL ORALLY ONCE A DAY, NOTES: 12/24/16 0700 TAKING VALSARTAN 160 MG TABLET 1 TAB ORALLY ONCE A DAY, NOTES: 12/23/16 1800 TAKING MELATONIN 3 MG TABLET ORALLY AT BEDTIME TAKING COLCHICINE 0.6 MG CAPSULE ORALLY DIRECTED, NOTES: TAKES ONLY FOR GOUT FLARE UP TAKING PRILOSEC 40 MG CAPSULE DELAYED RELEASE 1 CAPSULE ORALLY ONCE A DAY, NOTES: 12/24/16 0700 TAKING PERCOCET 5-325 MG TABLET 1 TABLET ORALLY ONCE DAILY PRN FOR PAIN MDD=1, NOTES: 12/23/16 2100 NOT-TAKING AMOXICILLIN 500 MG CAPSULE 1 CAPSULE ORALLY EVERY 8 HRS, NOTES: 12/11/16 0630 NOT-TAKING VITAMIN D3 MAXIMUM STRENGTH 5000 UNIT CAPSULE 1 CAPSULE ORALLY DAILY NOT-TAKING VITAMIN D 1000 UNIT TABLET 1 TABLET ORALLY ONCE A DAY, NOTES: 0500 DISCONTINUED GABAPENTIN 100 MG CAPSULE ORALLY MORNING, NOTES: 12/24/16 0700 MEDICATION LIST REVIEWED AND RECONCILED WITH THE PATIENT PAST MEDICAL HISTORY DIABETES MIGRAINES PAF HTN GERD HIGH CHOLESTEROL GUILLAIN BARRE ALLERGIES N.K.D.A. SOCIAL HISTORY GENERAL: TOBACCO USE ARE YOU A:NONSMOKER LEARNING BARRIERS / SPECIAL NEEDS ORIENTED TO PLAN OF CARE: PATIENT, PAIN MANAGEMENT PATIENT, ORIENTED TO PLAN OF CARE: PATIENT, PAIN MANAGEMENT PATIENT. NEW PATIENT PAIN DIARY TODAY'S VISITNOTES FROM 0-10, WHAT LEVEL IS YOUR PAIN TODAY?0 PAIN CLINIC PFS, CLERGY, PUBLIC HEALTH REFERRALS PFS REFERRAL NEEDED?NO CLERGY REFERRAL NEEDED?NO PUBLIC HEALTH REFERRAL NEEDED?NO WAS THE PROVIDER NOTIFIED OF ANY PERTINENT INFO?NO PFS REFERRAL NEEDED?NO CLERGY REFERRAL NEEDED?NO PUBLIC HEALTH REFERRAL NEEDED?NO WAS THE PROVIDER NOTIFIED OF ANY PERTINENT INFO?NO REVIEW OF SYSTEMS CONSTITUTIONAL: ANY CHANGE IN YOUR MEDICAL CONDITION? NO . CHILLS NO . FEVER NO . INFECTION: DO YOU HAVE NEW INFECTIONS? NO . DO YOU HAVE HISTORY OF MRSA? NO . MUSCULOSKELETAL: ANY NEW PATTERNS OF PAIN OR NUMBNESS? NO . GASTROENTEROLOGY: ANY NEW CHANGE IN BOWEL CONTROL? NO . GENITOURINARY: ANY NEW CHANGE IN BLADDER CONTROL? NO . IS THERE A CHANCE YOU COULD BE ? NO . HEMATOLOGY/LYMPH: DO YOU TAKE ANY BLOOD THINNERS? (FOR EXAMPLE- COUMADIN, PLAVIX, AGGRENOX, PLATEL, PRADAXA, OR XARELTO) NO . WHEN WAS YOUR LAST DOSE? DATE: TIME: . NEUROLOGY: HAVE YOU FALLEN IN THE PAST 6 MONTHS? NO . ANY NEW EXTREMITY NUMBNESS OR WEAKNESS? NO . CARDIOLOGY: DO YOU HAVE A PACEMAKER OR DEFIBRILLATOR? NO . RESPIRATORY: HAVE YOU BEEN SICK IN THE PAST WEEK? NO . FEVER NO . FLU LIKE SYMPTOMS? NO . COUGH INTERMITTANT . INTEGUMENTARY: DO YOU HAVE ANY RASHES OR OPEN SORES? NO . ALLERGIC/IMMUNO: ARE YOU ALLERGIC TO SHELLFISH OR IV DYE? NO . ANY NEW ALLERGIES? NO . PSYCHIATRIC: DO YOU HAVE THOUGHTS OF HURTING YOURSELF OR SOMEONE ELSE? NO . ARE YOU ABUSED, NEGLECTED, OR IN AN UNSAFE ENVIRONMENT? NO . ENDOCRINOLOGY: ARE YOU DIABETIC? YES . OTHER: DO YOU NEED ANY PRESCRIPTIONS? NO . IF YES, PLEASE LIST: ____ . ANY NEW PROBLEMS WITH YOUR MEDICATIONS? NO . WHEN DID YOU LAST EAT? ____ . WHEN DID YOU LAST DRINK? ____ . WHAT DID YOU LAST DRINK? ____ . NAME OF PERSON DRIVING YOU HOME? ____ . DO YOU HAVE ANY OTHER QUESTIONS OR CONCERNS NO . REVIEWED BY: PROVIDER: ELVIN RESENDIZ . VITAL SIGNS WT 195 LBS, HT 70 IN, BMI 27.98 INDEX, BP 160/89 MM HG, HR 67 /MIN, RR 16 /MIN, TEMP 96.1 F, OXYGEN SAT % 98, NA INITIALS TL 0841, REVIEWED BY: VD. EXAMINATION GENERAL EXAMINATION: PSYCHALERT , ORIENTED X 3 , APPROPRIATE MOOD AND AFFECT , SMILING AND TALKATIVE. LUNGS:CLEAR TO AUSCULTATION BILATERALLY. HEART:HEART RATE REGULAR. MUSCULOSKELETAL:TENDER OVER RIGHT LUMBAR.SPINOUS PROCESSES , TRIGGER POINTS: AND TIGHT FIBROUS BANDS OVER THE LUMBOSACRAL AXIS.. , MUSCLE STRENGTH TESTING 5/5 BILATERAL LOWER EXTREMITES. RISES EASILY TO A STANDING POSITION. POSTURE UPRIGHT. GAIT WIDEBASED, NONANTALGIC. ASSESSMENTS SPONDYLOSIS WITHOUT MYELOPATHY OR RADICULOPATHY, LUMBAR REGION - M47.816 (PRIMARY) SPONDYLOSIS WITHOUT MYELOPATHY OR RADICULOPATHY, LUMBOSACRAL REGION - M47.817 TREATMENT SPONDYLOSIS WITHOUT MYELOPATHY OR RADICULOPATHY, LUMBAR REGION NOTES: WALK AND DO EXERCISES DAILY. CLINICAL NOTES: ISTOP REGISTRY REVIEWED AND DEMNOSTRATES COMPLLIANCE. BRINGS IN MEDICATIONS WHICH IS APPROPRIATE FOR WHAT WAS DISPENSED. RECENT URINE TOXICOLOGY REVIEWED. NO UNAUTHORIZED MEDICATIONS. NO ILLICIT SUBSTANCES AND PRESCRIBED MEDICATIONS WERE PRESENT. PROCEDURE CODES FA211 ESTABILISHED PATIENT [facility] CHARGE DISPOSITION & COMMUNICATION FOLLOW UP CALL IF APPOINTMENT NEEDED ELECTRONICALLY SIGNED BY MIRANDA NAVARRETE ON 01/17/2017 AT 06:21 PM EST DISCLAIMER : THIS IS A VISIT SUMMARY EXTRACTED FROM THE [employer] CHART. IT IS NOT A COPY OF THE [employer] PROGRESS NOTE. TERESA
== END ==
LOC: M PAIN 08:40
PROVIDERS: ATTEND Nurse Practitioner Family
DX: Z09 Encounter for follow-up examination after completed treatment for conditions other than malignant neoplasm (principal); G89.29 Other chronic pain; M47.816 Spondylosis without myelopathy or radiculopathy, lumbar region; M47.817 Spondylosis without myelopathy or radiculopathy, lumbosacral region; E11.9 Type 2 diabetes mellitus without complications; G43.909 Migraine, unspecified, not intractable, without status migrainosus; I10 Essential (primary) hypertension; I48.0 Paroxysmal atrial fibrillation; K21.9 Gastro-esophageal reflux disease without esophagitis; E78.00 Pure hypercholesterolemia, unspecified; G61.0 Guillain-Barre syndrome; Z79.891 Long term (current) use of opiate analgesic; Z79.82 Long term (current) use of aspirin; Z79.84 Long term (current) use of oral hypoglycemic drugs; Z79.899 Other long term (current) drug therapy

== ENCOUNTER → 2017-02-20 | Outpatient (CLI) | payer OTHER ==
[~2017-02-20] MED LIST changes: -COLA100C PO; +COLA100C3 PO; +GABA-282 PO; -GABA300C3 PO; +NORC1TAB4 PO; -NORC5TAB PO
--- NOTE | 2017-03-07 01:18 | ECWPNPC ---
PATIENT NAME: HAI DAIGLE : 1965 GENDER: MALE VISIT DATE: 02/20/2017 DISCHARGE DATE: 02/20/17 1141 VISIT LOCKED DATE TIME: PHYSICIAN: ELVIN CROWE RESOURCE: ELVIN CROWE REASON FOR APPOINTMENT 1. BACK HISTORY OF PRESENT ILLNESS HISTORY OF PRESENT ILLNESS: PAIN THE PATIENT DESCRIBES THE PAIN... FALL RISK SCREENING: SCREENING :NO FALLS IN THE PAST YEAR TODAY'S VISIT: NOTES: RATES PAIN LEVEL TODAY 5/10. DESCRIBES PAIN CONSTANT, ACHING, SHARP AND STABBING. NOTES WORST OF PAIN CENTERED IN LOW BACK WITH RADIATION INTO RIGHT BUTTUCK AND POSTERIOR THIGH.HAD MARKED INCREASE IN PAIN ABOUT 3 WEEKS AGO AFTER LIFTING HIS MOTHER FROM A FALL. HAS HAD SOME PAIN RADIATING DOWN THE RIGHT ARM, AND PAIN INCREASES WITH DEEP BREATH. MOST COMFORTABLE POSITION IS IN TRUCK WITH GOOD LUMBAR SUPPORT. . CURRENT MEDICATIONS TAKING PROSCAR 5 MG TABLET 1 TABLET ORALLY ONCE A DAY, NOTES: 12/24/16 07 TAKING LIPITOR 20 MG TABLET 1 TABLET ORALLY ONCE A DAY, NOTES: 12/23/16 1800 TAKING ASPIR-81 81 MG TABLET DELAYED RELEASE 1 TABLET ORALLY ONCE A DAY, NOTES: 12/24/16 0700 TAKING CELEXA 20 MG TABLET 1 TABLET ORALLY ONCE A DAY, NOTES: 12/23/16 1800 TAKING FLECAINIDE ACETATE 50 MG TABLET 1 TABLET ORALLY EVERY 12 HRS, NOTES: 12/24/16 07 TAKING ZEBETA 5 MG TABLET 1 TABLET ORALLY ONCE A DAY, NOTES: 12/23/16 1800 TAKING MULTI FOR HIM TABLET DIRECTED ORALLY , NOTES: 12/24/16 07 TAKING VITAMIN B-12 500 MCG TABLET 1 TABLET ORALLY ONCE A DAY, NOTES: 12/24/16 07 TAKING CITRACAL PLUS 400MG TABLET 2 TABS ORALLY AT BEDTIME, NOTES: 12/23/16 1800 TAKING TIZANIDINE HCL 2 MG TABLET 1 TABLET NEEDED ORALLY EVERY 8 HRS, NOTES: 12/23/16 2100 TAKING METFORMIN HCL 1000 MG TABLET 1 TABLET WITH MEALS ORALLY TWICE DAILY, NOTES: 12/23/16 1800 TAKING GABAPENTIN 300 MG TABLET ORALLY AT BEDTIME, NOTES: 12/24/16 TAKING MAGNESIUM 400 MG CAPSULE 1 CAPSULE WITH A MEAL ORALLY ONCE A DAY, NOTES: 12/24/16 0700 TAKING VALSARTAN 160 MG TABLET 1 TAB ORALLY ONCE A DAY, NOTES: 12/23/16 1800 TAKING MELATONIN 3 MG TABLET ORALLY AT BEDTIME TAKING COLCHICINE 0.6 MG CAPSULE ORALLY DIRECTED, NOTES: TAKES ONLY FOR GOUT FLARE UP TAKING PRILOSEC 40 MG CAPSULE DELAYED RELEASE 1 CAPSULE ORALLY ONCE A DAY, NOTES: 12/24/16 0700 TAKING SOMA 350 MG TABLET 1 TABLET NEEDED ORALLY ONE AT BEDTIME MDD=1 TAKING PERCOCET 5-325 MG TABLET 1 TABLET ORALLY ONCE DAILY PRN FOR PAIN MDD=1 NOT-TAKING AMOXICILLIN 500 MG CAPSULE 1 CAPSULE ORALLY EVERY 8 HRS, NOTES: 12/11/16 0630 NOT-TAKING VITAMIN D3 MAXIMUM STRENGTH 5000 UNIT CAPSULE 1 CAPSULE ORALLY DAILY NOT-TAKING VITAMIN D 1000 UNIT TABLET 1 TABLET ORALLY ONCE A DAY, NOTES: 0500 MEDICATION LIST REVIEWED AND RECONCILED WITH THE PATIENT PAST MEDICAL HISTORY DIABETES MIGRAINES PAF HTN GERD HIGH CHOLESTEROL GUILLAIN BARRE ALLERGIES N.K.D.A. SOCIAL HISTORY GENERAL: PAIN CLINIC PFS, CLERGY, PUBLIC HEALTH REFERRALS CLERGY REFERRAL NEEDED?NO WAS THE PROVIDER NOTIFIED OF ANY PERTINENT INFO?NO PFS REFERRAL NEEDED?NO PUBLIC HEALTH REFERRAL NEEDED?NO PATIENT: ____. REVIEW OF SYSTEMS CONSTITUTIONAL: ANY CHANGE IN YOUR MEDICAL CONDITION? NO . CHILLS NO . FEVER NO . INFECTION: DO YOU HAVE NEW INFECTIONS? NO . DO YOU HAVE HISTORY OF MRSA? NO . MUSCULOSKELETAL: ANY NEW PATTERNS OF PAIN OR NUMBNESS? NO . GASTROENTEROLOGY: ANY NEW CHANGE IN BOWEL CONTROL? NO . GENITOURINARY: ANY NEW CHANGE IN BLADDER CONTROL? NO . IS THERE A CHANCE YOU COULD BE ? NO . HEMATOLOGY/LYMPH: DO YOU TAKE ANY BLOOD THINNERS? (FOR EXAMPLE- COUMADIN, PLAVIX, AGGRENOX, PLATEL, PRADAXA, OR XARELTO) NO . WHEN WAS YOUR LAST DOSE? DATE: TIME: . NEUROLOGY: HAVE YOU FALLEN IN THE PAST 6 MONTHS? NO . ANY NEW EXTREMITY NUMBNESS OR WEAKNESS? NO . CARDIOLOGY: DO YOU HAVE A PACEMAKER OR DEFIBRILLATOR? NO . HIGH BLOOD PRESSURE IMPROVED WITH PAIN CONTROL - HAS BEEN INCREASING . RESPIRATORY: HAVE YOU BEEN SICK IN THE PAST WEEK? NO . FEVER NO . FLU LIKE SYMPTOMS? NO . COUGH NO . INTEGUMENTARY: DO YOU HAVE ANY RASHES OR OPEN SORES? NO . ALLERGIC/IMMUNO: ARE YOU ALLERGIC TO SHELLFISH OR IV DYE? NO . ANY NEW ALLERGIES? NO . PSYCHIATRIC: DO YOU HAVE THOUGHTS OF HURTING YOURSELF OR SOMEONE ELSE? NO . ARE YOU ABUSED, NEGLECTED, OR IN AN UNSAFE ENVIRONMENT? NO . ENDOCRINOLOGY: ARE YOU DIABETIC? NO . OTHER: DO YOU NEED ANY PRESCRIPTIONS? YES . IF YES, PLEASE LIST: ____SOMA, PERCOCET . ANY NEW PROBLEMS WITH YOUR MEDICATIONS? NO . WHEN DID YOU LAST EAT? ____ . WHEN DID YOU LAST DRINK? ____ . WHAT DID YOU LAST DRINK? ____ . NAME OF PERSON DRIVING YOU HOME? ____ . DO YOU HAVE ANY OTHER QUESTIONS OR CONCERNS NO . REVIEWED BY: PROVIDER: ELVIN RESENDIZ . VITAL SIGNS WT 210.2 LBS, HT 70 IN, BMI 30.16 INDEX, BP 153/97 MM HG, HR 67 /MIN, RR 16 /MIN, TEMP 98.0 F, OXYGEN SAT % 96%, SAFE IN ENV? (Y/N) YES, NA INITIALS AW 1058, REVIEWED BY: SUKHJINDER. EXAMINATION GENERAL EXAMINATION: PSYCHALERT , ORIENTED X 3 , APPROPRIATE MOOD AND AFFECT , TALKATIVE. LUNGS:CLEAR TO AUSCULTATION BILATERALLY. HEART:HEART RATE REGULAR. MUSCULOSKELETAL:TENDER OVER THORACIC SPINOUS PROCESSES AT THE LEVEL OF T4-T6. , TRIGGER POINTS: AND TIGHT FIBROUS BANDS OVER THE LUMBOSACRAL AXIS.. , . RISES SLOWLY TO A STANDING POSITION. POSTURE SLIGHTLY STOOPED. GAIT WIDEBASED, ANTALGIC. POINT TENDERNESS OVER LUMBAR SPINOUS PROCESES AND INTO THE RIGHT SACRAL ILIAC JOINT. POSITIVE LAZARO SIGN RIGHT LEG. ASSESSMENTS DISPLACEMENT OF THORACIC INTERVERTEBRAL DISC WITHOUT MYELOPATHY - M51.24 (PRIMARY) INTERVERTEBRAL DISC DISORDER WITH RADICULOPATHY OF LUMBAR REGION - M51.16 THORACIC RADICULOPATHY - M54.14 SPONDYLOSIS WITHOUT MYELOPATHY OR RADICULOPATHY, LUMBAR REGION - M47.816 TREATMENT DISPLACEMENT OF THORACIC INTERVERTEBRAL DISC WITHOUT MYELOPATHY REFILL SOMA TABLET, 350 MG, 1 TABLET NEEDED, ORALLY, ONE AT BEDTIME MDD=1, 30 DAY(S), 30, REFILLS 1 REFILL PERCOCET TABLET, 5-325 MG, 1 TABLET, ORALLY, ONCE DAILY PRN FOR PAIN MDD=1, 30 DAY(S), 30, REFILLS 0 SPINAL INJECTION PROCEDURES CERVICAL/THORACICELVIN CROWE 02/20/2017 11:18:32 AM > THORACIC BERNABE T4 LEVEL NOTES: SEE CHIROPRACTER FOR STRETCHING AND MASSAGE. PROCEDURE CODES FA211 ESTABILISHED PATIENT [facility] FACILITY CHARGE DISPOSITION & COMMUNICATION FOLLOW UP AFTER INJECTION (REASON: CHECK AUTH FOR THORACIC EPIDURAL) ELECTRONICALLY SIGNED BY MIRANDA NAVARRETE ON 03/06/2017 AT 12:41 PM EDT DISCLAIMER : THIS IS A VISIT SUMMARY EXTRACTED FROM THE [employer] CHART. IT IS NOT A COPY OF THE [employer] PROGRESS NOTE. TRISTIND
== END ==
LOC: M PAIN 10:40
PROVIDERS: ATTEND Nurse Practitioner Family
DX: M51.24 Other intervertebral disc displacement, thoracic region (principal); M51.16 Intervertebral disc disorders with radiculopathy, lumbar region; M47.816 Spondylosis without myelopathy or radiculopathy, lumbar region; Z79.82 Long term (current) use of aspirin; Z79.84 Long term (current) use of oral hypoglycemic drugs; Z79.891 Long term (current) use of opiate analgesic; Z79.899 Other long term (current) drug therapy; E11.9 Type 2 diabetes mellitus without complications; I10 Essential (primary) hypertension; K21.9 Gastro-esophageal reflux disease without esophagitis; E78.00 Pure hypercholesterolemia, unspecified; G61.0 Guillain-Barre syndrome

== ENCOUNTER → 2017-02-25 | Outpatient (CLI) | payer OTHER ==
[~2017-02-25] MED LIST changes: +ISOVUE-M 300 61% 15ML VIAL (Q9967) As Ordered ONE; +LIDOCAINE 1% SDV INJ 30 ML VIAL As Ordered ONE; +diazePAM 5 MG TAB As Ordered ONE; +methylPREDNISolone SUSP 40 MG/ML (DEPO-medrol) VIAL (J1030) As Ordered ONE; +oxyCODONE 5MG TAB As Ordered ONE
--- NOTE | 2017-02-26 08:05 | REP ---
Partial thoracic spine series: Four views. History: Injection procedure for pain. 17 seconds of fluoroscopy time is reported. Findings: A sequence of four last image hold fluoroscopically obtained spot radiographs document needle position and contrast injection associated with thoracic epidural injection procedure. Signed by Nick Stanley MD 02/26/2017 01:37 P
--- NOTE | 2017-03-02 23:24 | ECWPNPC ---
PATIENT NAME: HAI DAIGLE : 1965 GENDER: MALE VISIT DATE: 02/25/2017 DISCHARGE DATE: 02/25/171713 VISIT LOCKED DATE TIME: PHYSICIAN: BONY ANTOINE RESOURCE: BONY ANTOINE REASON FOR APPOINTMENT 1. 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 THE PATIENT DESCRIBES THE PAIN... PAIN THE PATIENT DESCRIBES THE PAIN... THE PATIENT DESCRIBES THE PAIN... FALL RISK SCREENING: SCREENING :NO FALLS IN THE PAST YEAR :NO FALLS IN THE PAST YEAR SCREENING :NO FALLS IN THE PAST YEAR :NO FALLS IN THE PAST YEAR CURRENT MEDICATIONS TAKING PROSCAR 5 MG TABLET 1 TABLET ORALLY ONCE A DAY, NOTES: 02/25/17699 TAKING LIPITOR 20 MG TABLET 1 TABLET ORALLY ONCE A DAY, NOTES: 02/24/171899 TAKING ASPIR-81 81 MG TABLET DELAYED RELEASE 1 TABLET ORALLY ONCE A DAY, NOTES: 02/25/17699 TAKING CELEXA 20 MG TABLET 1 TABLET ORALLY ONCE A DAY, NOTES: 02/24/171899 TAKING FLECAINIDE ACETATE 50 MG TABLET 1 TABLET ORALLY EVERY 12 HRS, NOTES: 02/25/17699 TAKING ZEBETA 5 MG TABLET 1 TABLET ORALLY ONCE A DAY, NOTES: 02/24/17 TAKING MULTI FOR HIM TABLET DIRECTED ORALLY , NOTES: 02/25/17699 TAKING VITAMIN B-12 500 MCG TABLET 1 TABLET ORALLY ONCE A DAY, NOTES: 02/25/17699 TAKING CITRACAL PLUS 400MG TABLET 2 TABS ORALLY AT BEDTIME, NOTES: 02/24/171899 TAKING TIZANIDINE HCL 2 MG TABLET 1 TABLET NEEDED ORALLY EVERY 8 HRS, NOTES: 02/24/171899 TAKING METFORMIN HCL 1000 MG TABLET 1 TABLET WITH MEALS ORALLY TWICE DAILY, NOTES: 02/24/171899 TAKING GABAPENTIN 300 MG TABLET ORALLY AT BEDTIME, NOTES: 02/24/171899 TAKING MAGNESIUM 250 MG TABLET 1 CAPSULE WITH A MEAL ORALLY ONCE A DAY, NOTES: 699 TAKING PRILOSEC 40 MG CAPSULE DELAYED RELEASE 1 CAPSULE ORALLY ONCE A DAY, NOTES: 02/25/17699 TAKING VALSARTAN 160 MG TABLET 1 TAB ORALLY ONCE A DAY, NOTES: 4/17/17 1900 TAKING MELATONIN 3 MG TABLET ORALLY AT BEDTIME, NOTES: NONE RECENT TAKING COLCHICINE 0.6 MG CAPSULE ORALLY DIRECTED, NOTES: NONE RECENT TAKING SOMA 350 MG TABLET 1 TABLET NEEDED ORALLY ONE AT BEDTIME MDD=1, NOTES: 02/23/17 TAKING PERCOCET 5-325 MG TABLET 1 TABLET ORALLY ONCE DAILY PRN FOR PAIN MDD=1, NOTES: 02/23/17 TAKING INVOKANA 100 MG TABLET 1 TABLET ORALLY ONCE A DAY, NOTES: 02/24/17 0700 TAKING VITAMIN D3 MAXIMUM STRENGTH 5000 UNIT CAPSULE 1 CAPSULE ORALLY DAILY, NOTES: 02/25/17 0700 NOT-TAKING AMOXICILLIN 500 MG CAPSULE 1 CAPSULE ORALLY EVERY 8 HRS, NOTES: 12/11/16 0630 NOT-TAKING VITAMIN D 1000 UNIT TABLET 1 TABLET ORALLY ONCE A DAY, NOTES: 0500 MEDICATION LIST REVIEWED AND RECONCILED WITH THE PATIENT PAST MEDICAL HISTORY DIABETES MIGRAINES PAF HTN GERD HIGH CHOLESTEROL GUILLAIN BARRE ALLERGIES N.K.D.A. SOCIAL HISTORY GENERAL: PAIN CLINIC PFS, CLERGY, PUBLIC HEALTH REFERRALS CLERGY REFERRAL NEEDED?NO WAS THE PROVIDER NOTIFIED OF ANY PERTINENT INFO?NO PFS REFERRAL NEEDED?NO PUBLIC HEALTH REFERRAL NEEDED?NO CLERGY REFERRAL NEEDED?NO WAS THE PROVIDER NOTIFIED OF ANY PERTINENT INFO?NO PFS REFERRAL NEEDED?NO PUBLIC HEALTH REFERRAL NEEDED?NO PATIENT: ____, ____. REVIEW OF SYSTEMS CONSTITUTIONAL: ANY CHANGE IN YOUR MEDICAL CONDITION? YES, TICK BITE 1 WEEK AGO--TREATED WITH DOXYCYCLINE . CHILLS NO . FEVER NO . INFECTION: DO YOU HAVE NEW INFECTIONS? NO . DO YOU HAVE HISTORY OF MRSA? NO . MUSCULOSKELETAL: ANY NEW PATTERNS OF PAIN OR NUMBNESS? NO . GASTROENTEROLOGY: ANY NEW CHANGE IN BOWEL CONTROL? NO . GENITOURINARY: ANY NEW CHANGE IN BLADDER CONTROL? NO . IS THERE A CHANCE YOU COULD BE ? N/A . HEMATOLOGY/LYMPH: DO YOU TAKE ANY BLOOD THINNERS? (FOR EXAMPLE- COUMADIN, PLAVIX, AGGRENOX, PLATEL, PRADAXA, OR XARELTO) NO . WHEN WAS YOUR LAST DOSE? DATE: TIME: , DATE: TIME: . NEUROLOGY: HAVE YOU FALLEN IN THE PAST 6 MONTHS? NO . ANY NEW EXTREMITY NUMBNESS OR WEAKNESS? PAIN AND NUMBNESS DOWN LEFT ARM . CARDIOLOGY: DO YOU HAVE A PACEMAKER OR DEFIBRILLATOR? NO . RESPIRATORY: HAVE YOU BEEN SICK IN THE PAST WEEK? NO . FEVER NO . FLU LIKE SYMPTOMS? NO . COUGH NO . INTEGUMENTARY: DO YOU HAVE ANY RASHES OR OPEN SORES? NO . ALLERGIC/IMMUNO: ARE YOU ALLERGIC TO SHELLFISH OR IV DYE? NO . ANY NEW ALLERGIES? NO . PSYCHIATRIC: DO YOU HAVE THOUGHTS OF HURTING YOURSELF OR SOMEONE ELSE? NO . ARE YOU ABUSED, NEGLECTED, OR IN AN UNSAFE ENVIRONMENT? NO . ENDOCRINOLOGY: ARE YOU DIABETIC? YES . OTHER: DO YOU NEED ANY PRESCRIPTIONS? YES, PERCOCET . ANY NEW PROBLEMS WITH YOUR MEDICATIONS? NO . WHEN DID YOU LAST EAT? 02/25/17 0800 . WHEN DID YOU LAST DRINK? 02/25/17 1200 . WHAT DID YOU LAST DRINK? WATER . NAME OF PERSON DRIVING YOU HOME? , AUDREY . DO YOU HAVE ANY OTHER QUESTIONS OR CONCERNS NO . REVIEWED BY: PROVIDER: , . VITAL SIGNS WT 200 LBS, HT 70 IN, BMI 28.69 INDEX, BP 118/58 MM HG, HR 70 /MIN, RR 16 /MIN, TEMP 98.4 F, OXYGEN SAT % 98, REVIEWED BY: AD. ASSESSMENTS INTERVERTEBRAL DISC DISORDERS WITH RADICULOPATHY, THORACIC REGION - M51.14 (PRIMARY) PROCEDURES PN THORACIC EPIDURAL PRE PROCEDURE DIAGNOSIS THORACIC DISC DISORDER WITH RADICULOPATHY POST PROCEDURE DIAGNOSIS THORACIC DISC DISORDER WITH RADICULOPATHY PROCEDURE THORACIC EPIDURAL STEROID INJECTION UNDER FLUOROSCOPIC GUIDANCE SURGEON DR. BONY ANTOINE ENVIRONMENTAL LABORATORY TECHNICIAN NONE ANESTHESIA LOCAL PRE PROCEDURE NOTE THE PATIENT HAS A HISTORY OF CHRONIC THORACIC PAIN. I EVALUATE THE PATIENT AND REVIEWED THE CHART. I WENT OVER THE RISKS, ALTERNATIVES, AND BENEFITS ASSOCIATED WITH THIS PROCEDURE. THE PATIENT WOULD LIKE TO PROCEED AND GIVE CONSENT TO PERFORMED THE PROCEDURE. THE PATIENT DENIES UNEXPLAINABLE WEIGHT LOSS, FEVER, CHILLS, OR NEW CHANGES IN URINARY OR BOWEL CONTROL DESCRIPTION OF PROCEDURE THE PATIENT WAS BROUGHT TO THE PROCEDURE ROOM AND PLACED IN THE PRONE POSITION. THE THORACIC AREA WAS CLEANED WITH BETADINE SOLUTION AND DRAPED ASEPTICALLY. THE PROCEDURE WAS DONE UNDER STERILE CONDITIONS. I CHECKED LATERALITY AND THE LEVEL WHERE THE PROCEDURE WAS GOING TO BE PERFORMED WITH THE PATIENT AND THE SUPPORTING STAFF AT THE MOMENT OF THE TIME OUT IN THE PROCEDURE ROOM. UNDER FLUOROSCOPIC GUIDANCE, THE TARGET POINT WAS SELECTED AT THE INTERLAMINAR LEVEL OF T5-T6. LIDOCAINE WAS USED TO NUMB THE SKIN AND THE SUBCUTANEOUS TISSUE BELOW IT. EPIDURAL TUOHY NEEDLE, 17-GAUGE, WAS ADVANCED UNDER FLUOROSCOPIC GUIDANCE AND FOLLOWING PATIENT FEEDBACK UNTIL THE EPIDURAL SPACE WAS REACHED 6 CM DEEP INTO THE SKIN BY THE LOSS OF RESISTANCE TECHNIQUE. ISOVUE M DYE 30%, 0.25 ML, WAS INJECTED SHOWING ADEQUATE SPREAD OF THE DYE. THEN, A SOLUTION OF 3 ML OF NORMAL SALINE WITH DEPO-MEDROL 60 MG WAS INJECTED SLOWLY FOLLOWING PATIENT FEEDBACK. THERE WAS NO EVIDENCE OF BLOOD, PARESTHESIA OR CEREBROSPINAL FLUID DURING THE PROCEDURE. THE PATIENT WAS SENT TO THE RECOVERY ROOM. THE PATIENT WAS MOVING THE EXTREMITIES AND DOING WELL. THERE WAS NO COMPLICATION DURING THE PROCEDURE. FLUOROSCOPY TIME WAS 17 SECONDS POST PROCEDURE NOTE THE PATIENT WILL BE SEEN IN A FOLLOW UP IN THE NEXT FEW WEEKS. INSTRUCTIONS WERE GIVEN, QUESTIONS WERE ANSWERED, AND THE PATIENT EXPRESSED UNDERSTANDING AND AGREED WITH THE PLAN. I, VIC SABA, DOCUMENTED THE ABOVE INFORMATION ACTING A SCRIBE FOR DR. ANTOINE. I, DR. ANTOINE, HAVE REVIEWED THE ABOVE DOCUMENT, SCRIBED BY VIC SABA, AND I VERIFY THAT IT IS ACCURATE DIAGNOSTIC IMAGING [facility] FLUORO GUIDE SPINE INJECTION (PAIN)[id number] PROCEDURE CODES 05926 CERVICAL/THORACIC W/ IMAGING 6045F RADXPS IN END [id number] PXD DISPOSITION & COMMUNICATION FOLLOW UP 3 WEEKS ELECTRONICALLY SIGNED BY BONY ANTOINE MD ON 03/02/2017 AT 04:56 PM EDT DISCLAIMER : THIS IS A VISIT SUMMARY EXTRACTED FROM THE [employer] CHART. IT IS NOT A COPY OF THE [employer] PROGRESS NOTE. MTDD
== END ==
LOC: M PAIN 14:40
PROVIDERS: ATTEND Anesthesiology
DX: G89.29 Other chronic pain (principal); M51.14 Intervertebral disc disorders with radiculopathy, thoracic region; E11.9 Type 2 diabetes mellitus without complications; G43.909 Migraine, unspecified, not intractable, without status migrainosus; I48.0 Paroxysmal atrial fibrillation; I10 Essential (primary) hypertension; K21.9 Gastro-esophageal reflux disease without esophagitis; E78.00 Pure hypercholesterolemia, unspecified; R20.0 Anesthesia of skin; G61.0 Guillain-Barre syndrome; Z79.82 Long term (current) use of aspirin; Z79.84 Long term (current) use of oral hypoglycemic drugs; Z79.891 Long term (current) use of opiate analgesic; Z79.899 Other long term (current) drug therapy
CPT/HCPCS: 62321; J1030; Q9967

== ENCOUNTER → 2017-03-14 | Outpatient (CLI) | payer OTHER ==
[~2017-03-14] MED LIST changes: +ASPI325T PO; -ISOVUE-M 300 61% 15ML VIAL (Q9967) As Ordered ONE; -LIDOCAINE 1% SDV INJ 30 ML VIAL As Ordered ONE; +VALS1TAB47 PO; -diazePAM 5 MG TAB As Ordered ONE; -methylPREDNISolone SUSP 40 MG/ML (DEPO-medrol) VIAL (J1030) As Ordered ONE; -oxyCODONE 5MG TAB As Ordered ONE
--- NOTE | 2017-04-07 23:56 | ECWPNPC ---
PATIENT NAME: HAI ADIGLE : 1965 GENDER: MALE VISIT DATE: 03/14/2017 DISCHARGE DATE: 03/14/17 1555 VISIT LOCKED DATE TIME: PHYSICIAN: ELVIN CROWE RESOURCE: ELVIN CROWE REASON FOR APPOINTMENT 1. F/U S/P TESI HISTORY OF PRESENT ILLNESS HISTORY OF PRESENT ILLNESS: PAIN THE PATIENT DESCRIBES THE PAIN... FALL RISK SCREENING: SCREENING :NO FALLS IN THE PAST YEAR TODAY'S VISIT: NOTES: S/P THORACIC EPIDURAL T1-2 ON 02/25/17. PAIN LEVEL PRIOR TO PROCEDURE 7/10 AND PAIN DECREASED TO 0-4/10. RATES PAIN TODAY 6/10. PAIN IS SLIGHTLY TO THE LEFT OF THE MID THORARIC. HAD NO EXTRA LIFTING OR OTHER AGGRAVATING FACTORS. DOES NOTE THAT THE DAMP WEATHER INCREASES THE PAIN. . CURRENT MEDICATIONS TAKING PROSCAR 5 MG TABLET 1 TABLET ORALLY ONCE A DAY, NOTES: 02/25/17699 TAKING LIPITOR 20 MG TABLET 1 TABLET ORALLY ONCE A DAY, NOTES: 02/24/171899 TAKING ASPIR-81 81 MG TABLET DELAYED RELEASE 1 TABLET ORALLY ONCE A DAY, NOTES: 02/25/17699 TAKING CELEXA 20 MG TABLET 1 TABLET ORALLY ONCE A DAY, NOTES: 02/24/171899 TAKING FLECAINIDE ACETATE 50 MG TABLET 1 TABLET ORALLY EVERY 12 HRS, NOTES: 02/25/17699 TAKING ZEBETA 5 MG TABLET 1 TABLET ORALLY ONCE A DAY, NOTES: 02/24/17 TAKING MULTI FOR HIM TABLET DIRECTED ORALLY , NOTES: 02/25/17699 TAKING VITAMIN B-12 500 MCG TABLET 1 TABLET ORALLY ONCE A DAY, NOTES: 02/25/17699 TAKING CITRACAL PLUS 400MG TABLET 2 TABS ORALLY AT BEDTIME, NOTES: 02/24/171899 TAKING TIZANIDINE HCL 2 MG TABLET 1 TABLET NEEDED ORALLY EVERY 8 HRS, NOTES: 02/24/171899 TAKING METFORMIN HCL 1000 MG TABLET 1 TABLET WITH MEALS ORALLY TWICE DAILY, NOTES: 02/24/171899 TAKING GABAPENTIN 300 MG TABLET ORALLY AT BEDTIME, NOTES: 02/24/171899 TAKING MAGNESIUM 250 MG TABLET 1 CAPSULE WITH A MEAL ORALLY ONCE A DAY, NOTES: 699 TAKING PRILOSEC 40 MG CAPSULE DELAYED RELEASE 1 CAPSULE ORALLY ONCE A DAY, NOTES: 02/25/17 0700 TAKING VALSARTAN 160 MG TABLET 1 TAB ORALLY ONCE A DAY, NOTES: 02/24/17 1900 TAKING MELATONIN 3 MG TABLET ORALLY AT BEDTIME, NOTES: NONE RECENT TAKING COLCHICINE 0.6 MG CAPSULE ORALLY DIRECTED, NOTES: NONE RECENT TAKING SOMA 350 MG TABLET 1 TABLET NEEDED ORALLY ONE AT BEDTIME MDD=1, NOTES: 02/23/17 TAKING INVOKANA 100 MG TABLET 1 TABLET ORALLY ONCE A DAY, NOTES: 02/24/17 0700 TAKING VITAMIN D3 MAXIMUM STRENGTH 5000 UNIT CAPSULE 1 CAPSULE ORALLY DAILY, NOTES: 02/25/17 0700 TAKING PERCOCET 5-325 MG TABLET 1 TABLET ORALLY ONCE DAILY PRN FOR PAIN MDD=1 NOT-TAKING AMOXICILLIN 500 MG CAPSULE 1 CAPSULE ORALLY EVERY 8 HRS, NOTES: 12/11/16 0630 NOT-TAKING VITAMIN D 1000 UNIT TABLET 1 TABLET ORALLY ONCE A DAY, NOTES: 0500 MEDICATION LIST REVIEWED AND RECONCILED WITH THE PATIENT PAST MEDICAL HISTORY DIABETES MIGRAINES PAF HTN GERD HIGH CHOLESTEROL GUILLAIN BARRE ALLERGIES N.K.D.A. REVIEW OF SYSTEMS CONSTITUTIONAL: ANY CHANGE IN YOUR MEDICAL CONDITION? NO . CHILLS NO . FEVER NO . INFECTION: DO YOU HAVE NEW INFECTIONS? NO . DO YOU HAVE HISTORY OF MRSA? NO . MUSCULOSKELETAL: ANY NEW PATTERNS OF PAIN OR NUMBNESS? YES. TESI 02/25/17 STARTED WITH GOOD RESULTS, THEN PROGRESSIVELY WORSENED WITH TIME. . GASTROENTEROLOGY: ANY NEW CHANGE IN BOWEL CONTROL? NO . GENITOURINARY: ANY NEW CHANGE IN BLADDER CONTROL? NO . IS THERE A CHANCE YOU COULD BE ? NO . HEMATOLOGY/LYMPH: DO YOU TAKE ANY BLOOD THINNERS? (FOR EXAMPLE- COUMADIN, PLAVIX, AGGRENOX, PLATEL, PRADAXA, OR XARELTO) NO . WHEN WAS YOUR LAST DOSE? DATE: TIME: . NEUROLOGY: HAVE YOU FALLEN IN THE PAST 6 MONTHS? NO . ANY NEW EXTREMITY NUMBNESS OR WEAKNESS? NO . CARDIOLOGY: DO YOU HAVE A PACEMAKER OR DEFIBRILLATOR? NO . RESPIRATORY: HAVE YOU BEEN SICK IN THE PAST WEEK? NO . FEVER NO . FLU LIKE SYMPTOMS? NO . COUGH NO . INTEGUMENTARY: DO YOU HAVE ANY RASHES OR OPEN SORES? NO . ALLERGIC/IMMUNO: ARE YOU ALLERGIC TO SHELLFISH OR IV DYE? NO . ANY NEW ALLERGIES? NO . PSYCHIATRIC: DO YOU HAVE THOUGHTS OF HURTING YOURSELF OR SOMEONE ELSE? NO . ARE YOU ABUSED, NEGLECTED, OR IN AN UNSAFE ENVIRONMENT? NO . ENDOCRINOLOGY: ARE YOU DIABETIC? YES . OTHER: DO YOU NEED ANY PRESCRIPTIONS? NO . IF YES, PLEASE LIST: ____ . ANY NEW PROBLEMS WITH YOUR MEDICATIONS? NO . WHEN DID YOU LAST EAT? ____ . WHEN DID YOU LAST DRINK? ____ . WHAT DID YOU LAST DRINK? ____ . NAME OF PERSON DRIVING YOU HOME? ____ . DO YOU HAVE ANY OTHER QUESTIONS OR CONCERNS NO . REVIEWED BY: PROVIDER: ELVIN RESENDIZ . VITAL SIGNS WT 203.4 LBS, HT 70 IN, BMI 29.18 INDEX, BP 138/90 MM HG, HR 82 /MIN, RR 16 /MIN, TEMP 96.0 F, OXYGEN SAT % 97%, NA INITIALS [id number]. EXAMINATION GENERAL EXAMINATION: PSYCHALERT , ORIENTED X 3 , APPROPRIATE MOOD AND AFFECT , TALKATIVE. LUNGS:CLEAR TO AUSCULTATION BILATERALLY. HEART:HEART RATE REGULAR. MUSCULOSKELETAL:TENDER OVER THORACIC SPINOUS PROCESSES AT THE LEVEL OF T4-T6. , TRIGGER POINTS: AND TIGHT FIBROUS BANDS OVER THE LUMBOSACRAL AXIS.. , . RISES SLOWLY TO A STANDING POSITION. POSTURE UPRIGHT. GAIT WIDEBASED, ANTALGIC. POINT TENDERNESS OVER LUMBAR SPINOUS PROCESES AND ACROSS THE SACRUM BILATERALLY.. 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 CLINICAL NOTES: ISTOP REGISTRY REVIEWED AND DEMNOSTRATES COMPLLIANCE. BRINGS IN MEDICATIONS WHICH IS APPROPRIATE FOR WHAT WAS DISPENSED. RECENT URINE TOXICOLOGY REVIEWED. NO UNAUTHORIZED MEDICATIONS. NO ILLICIT SUBSTANCES AND PRESCRIBED MEDICATIONS WERE PRESENT. PROCEDURE CODES FA211 ESTABILISHED PATIENT [facility] CHARGE DISPOSITION & COMMUNICATION FOLLOW UP AFTER INJECTION (REASON: CHECK AUTH FOR CERVICAL EPIDURAL) ELECTRONICALLY SIGNED BY MIRANDA NAVARRETE ON 04/07/2017 AT 05:12 PM EDT DISCLAIMER : THIS IS A VISIT SUMMARY EXTRACTED FROM THE [facility] CHART. IT IS NOT A COPY OF THE [facility] PROGRESS NOTE. MTDD
== END ==
LOC: M PAIN 14:40
PROVIDERS: ATTEND Nurse Practitioner Family
DX: M51.24 Other intervertebral disc displacement, thoracic region (principal); M50.220 Other cervical disc displacement, mid-cervical region, unspecified level; M79.1 Myalgia; Z79.82 Long term (current) use of aspirin; Z79.84 Long term (current) use of oral hypoglycemic drugs; Z79.891 Long term (current) use of opiate analgesic; Z79.899 Other long term (current) drug therapy; E11.9 Type 2 diabetes mellitus without complications; I10 Essential (primary) hypertension; E78.00 Pure hypercholesterolemia, unspecified; K21.9 Gastro-esophageal reflux disease without esophagitis; G43.909 Migraine, unspecified, not intractable, without status migrainosus; G61.0 Guillain-Barre syndrome

== ENCOUNTER 2017-04-02 13:24 | Inpatient (IN) | payer OTHER ==
[~2017-04-02] VITALS: Ht 177.8 cm; Wt 91.0 kg
[~2017-04-02 13:24] MED LIST changes: -ASPI325T PO; -VALS1TAB47 PO
[2017-04-02 13:44] LABS: BASO % 0.3 % (0.0-1.0); EOS # 0.1 K/mm3 (0.0-0.50); EOS % 2.2 % (0.0-3.0); LARGE UNSTAINED CELL # 0.1 K/mm3 (0.0-0.4); LARGE UNSTAINED CELL % 1.6 % (0.0-4.0); LYMPH # 1.5 K/mm3 (1.5-4.5); LYMPH % 22.1 % (24.0-44.0); MEAN CORPUSCULAR HEMOGLOBIN 29.8 pg (27.0-33.0); MEAN CORPUSCULAR HGB CONC 34.8 g/dl (32.0-36.5); MEAN CORPUSCULAR VOLUME 85.7 fl (80.0-96.0); MONO # 0.3 K/mm3 (0.0-0.8); MONO % 4.4 % (0.0-5.0); NEUTROPHILS # 4.4 K/mm3 (1.8-7.7); NEUTROPHILS % 69.4 % (36.0-66.0); PLATELET COUNT, AUTOMATED 244 k/mm3 (150-450); RED CELL DISTRIBUTION WIDTH 12.3 % (11.5-14.5); WHITE BLOOD COUNT 6.4 K/mm3 (4.0-10.0)
[2017-04-02 13:50] LABS: INR 0.89
--- NOTE | 2017-04-02 13:53 | REP ---
CT Head without contrast HISTORY: Infarction COMPARISON: 01/29/2016 There is no intraparenchymal hemorrhage, acute infarct, mass or midline shift. The ventricular system is normal in appearance. There is no extra cerebral collection. There is no fracture. The visualized sinuses are clear. IMPRESSION: There is no intracranial lesion. Signed by Ralph Bernstein MD 04/02/2017 01:44 P
[2017-04-02] MEDS ORDERED: ISOVUE-370 76% 100ML VIAL (Q9967) As Ordered ONE (13:57)
--- NOTE | 2017-04-02 14:05 | REP ---
Portable chest: Single view. History: CVA. Comparison study: November 21, 2016. Findings: EKG monitoring electrodes and oxygen tubing are seen. The aorta is slightly tortuous as before. The lungs are well inflated and clear. Pleural angles are sharp. Heart is near the upper range of normal in size but unchanged. Pulmonary vasculature is not increased. Impression: Borderline heart size unchanged. Otherwise no active disease. Signed by Nick Stanley MD 04/02/2017 01:56 P
[2017-04-02 14:15] LABS: ANION GAP 8 MEQ/L (8-16); BLOOD UREA NITROGEN 9 MG/DL (7-18); CALCIUM LEVEL 9.4 MG/DL (8.5-10.1); CARBON DIOXIDE LEVEL 27 MEQ/L (21-32); CHLORIDE LEVEL 105 MEQ/L (98-107); CREATININE FOR GFR 0.87 MG/DL (0.70-1.30); GLOMERULAR FILTRATION RATE > 60.0 (>56); GLUCOSE, FASTING 166 MG/DL (70-105); POTASSIUM SERUM 3.5 MEQ/L (3.5-5.1); SODIUM LEVEL 140 MEQ/L (136-145)
[2017-04-02] MEDS ORDERED: METOCLOPRAMIDE INJ 10MG/2ML VIAL (J2765) IV ONE (14:15)
--- NOTE | 2017-04-02 14:31 | ECGEPIP ---
Stationary ECG Study [facility] - ED Test Date: 2017-04-02 Pat Name: HAI DAIGLE Department: Room: - Gender: M Hand Stapler: michael : 1965 Requested By: ADAM Thrasher Order Number: [id number] Reading MD: Franchesca Garrido Measurements Intervals [place] Rate: 64 P: 27 GA: 177 QRS: -11 QRSD: 99 T: 30 QT: 415 QTc: 430 Interpretive Statements SINUS RHYTHM INFERIOR INFARCT OLD NSTTW ABNORMALITY Electronically Signed On 04-02-2017 14:30:52 EDT by Franchesca Garrido
[2017-04-02] MEDS ORDERED: KETOROLAC 30 MG/ML VIAL (J1885) IV ONE (15:00)
[2017-04-02] MEDS ORDERED: ASPIRIN 325 MG TAB PO ONE (15:00)
[2017-04-02] MEDS ORDERED: VALS1TAB47 PO (15:30)
[2017-04-02] MEDS ORDERED: INVO100T PO (15:30)
[2017-04-02] MEDS ORDERED: SOMA350T PO (15:30)
[2017-04-02] MEDS ORDERED: METF-415 PO (15:30)
[2017-04-02] MEDS ORDERED: DEXTROSE 50% 50 ML SYRINGE IV PRN (15:45)
[2017-04-02] MEDS ORDERED: GLUCOSE 4 GM CHEW TABLET PO PRN (15:45)
[2017-04-02] MEDS ORDERED: tiZANidine 4 MG TAB PO PRN (15:45)
[2017-04-02] MEDS ORDERED: GLUCAGON FOR INJ 1 MG VIAL (J1610) SC PRN (15:45)
[2017-04-02] MEDS ORDERED: ONDANSETRON 4MG/2ML VIAL (J2405) IV PRN (15:45)
[2017-04-02] MEDS ORDERED: CARISOPRODOL 350 MG TAB PO PRN (15:45)
[2017-04-02 18:35] VITALS: BP 140/85
[2017-04-02] MEDS: KCL 20MEQ in NS 1000ML 1,000 ML IV SCH (18:56)
[2017-04-02] MEDS: PERCOCET 5MG/325MG TAB PO PRN (18:57)
--- NOTE | 2017-04-02 19:00 | REPUSA ---
CLINICAL HISTORY: Stroke. TECHNIQUE: MRI of the brain was performed without administration of intravenous contrast material. T1 spine echo, T2 fast spin echo, DWI and FLAIR sequences were obtained in sagittal, axial and coronal planes. FINDINGS: The sella and parasellar regions are unremarkable in appearance. The corpus callosum and cerebellar t onsils are of normal configuration and position. There are no intra or extra-axial collections. There is no mass effect or midline shift. There is no evidence of hematoma formation. There is no hydrocep halus. There is no evidence of restricted diffusion. The brain stem shows no mass effects, infarcts or hemorrhage. There are no cerebellopontine tumors. T he acoustic nerves are symmetrical. No cerebellar intra-axial pathology delineated. The fourth ventri ofelia and aqueduct are normal. No abnormalities of the optic nerves are identified. There is no evidenc e of atrophic or degenerative changes. No dural or subdural masses or collections are detected. The visualized arterial structures demonstrate normal appearing flow voids. The VII and VIII nerve bu ndles are visualized and are unremarkable in appearance. There are no suspicious signal abnormalities within the infra or supratentorial space. Mucosal thickening is seen involving bilateral ethmoid and maxillary sinuses compatible with chronic sinusitis. IMPRESSION: Chronic ethmoid and maxillary sinusitis, otherwise normal MRI of the brain. No evidence of acute or chronic stroke. Thank you for your kind referral of this patient.
[2017-04-02] MEDS: HumaLOG INSULIN (NovoLOG) PER UNIT SC SCH (19:23)
[2017-04-02 19:56] VITALS: BP 156/93
--- NOTE | 2017-04-02 19:57 | HPE ---
DATE OF ADMISSION: 04/02/2017 PRIMARY CARE PROVIDER: Dr. Merida. NEUROLOGIST: Dr. Mosley. PAIN MANAGEMENT: Dr. Roman SUPERVISOR WIRE ROPE FABRICATION: Dr. Queen UROLOGIST: Dr. Flores CHIEF COMPLAINT: Headache and left sided weakness and numbness. 51-year-old male patient with underlying medical history of complex migraine, Gullian-[place], paroxysmal atrial fibrillation on baby aspirin, type 2 diabetes non-insulin dependent, hypertension, dyslipidemia, chronic back pain, nephrolithiasis, morbid obesity, gastric bypass, depression, gout as per patient with acute onset 11:30 a.m. with 10/10 diffuse head pain, worsened by light and noise, similar to previous migraine. Symptoms progressively worsened and also involved left sided weakness and numbness, subsequently brought to the hospital. Patient in the hospital around noontime with a period of lethargy and difficult to arouse. Stroke protocol was activated and [facility] was contacted. CT head was done. CTA of the head and neck was also done. Patient was given Reglan and Toradol by emergency room provider and symptoms gradually improved while the patient was in the emergency room. Full dose aspirin 325 was also given. Patient became more arousable, is speaking full sentences and the strength from left upper and lower extremity is slowly returning. Almost came back full strength on the right and lower extremity as per patient. Patient had previous migraine involving left upper and lower extremity weakness and paranesthesia. This episode is very similar. Currently headache is around 5/10. Case was discussed with Dr. Rubio. MRI was ordered. Patient was determined not a candidate for TPA. Neuro checks, blood pressure was followed. Patient previously received IVIG and plasmapheresis with Gullian-Park[place] 1 1/2 years ago. Currently denies any chest pain, pressure or discomfort. Denies any nausea or vomiting. Reported headache worsening with light about 5/10. Denies abdominal pain, diarrhea, constipation. Denies any shortness of breath or difficulty breathing. Initially presented to the ED with left sided tongue deviation, but currently has been negative. ALLERGIES: No known drug allergies reported. PAST MEDICAL HISTORY: 1. Gullian-[place]. 2. Paroxysmal atrial fibrillation. 3. Type 2 diabetes non-insulin dependent 4. Hypertension. 5. Dyslipidemia. 6. Complex migraines. 7. Chronic back pain. 8. Nephrolithiasis. 9. Morbid obesity with gastric bypass. 10. Gout. 11. Depression in the past. PAST SURGICAL HISTORY: 1. Gastric bypass. 2. 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 3. Orthoscopic surgery of bilateral knees . 4. Open reduction and internal fixation of left arm. 5. Cystoscopy times two. 6. Vasectomy. 7. Cardiac catheterization 6-7 years ago with no stents. SOCIAL HISTORY: Patient does not smoke. Drinking alcohol occasionally every 2 weeks or so. Lives at [place]. Has a dog and a cat. FAMILY HISTORY: Father with colon cancer at age 80s. REVIEW OF SYSTEMS: Patient reported photophobia and headache with left sided upper and lower extremity weakness, also with numbing sensation of left face and left upper and lower extremities. Other review of systems are negative. HOME MEDICATION: - aspirin 81 mg daily - Lipitor 20 mg by mouth at bedtime - bisoprolol 5 mg by mouth at bedtime - Invokana 100 mg by mouth daily - Soma 350 mg by mouth daily as needed - vitamin D 5000 units by mouth daily - Celexa 20 mg by mouth at bedtime - Colchicine 0.6 mg by mouth as needed - vitamin B12 500 mcg by mouth daily - Proscar 5 mg by mouth daily - flecainide 50 mg by mouth twice a day - gabapentin 100 mg in the morning and 300 mg at night - melatonin 3 mg by mouth at bedtime as needed - metformin 1000 mg by mouth twice a day - multivitamin 2 tablets by mouth daily - omeprazole 40 mg by mouth at bedtime - Percocet 5/325 mg by mouth daily as needed - tizanidine 2 mg by mouth three times a day as needed - Valsartan 160 mg by mouth at bedtime PHYSICAL EXAMINATION: VITAL SIGNS: Temperature 99.2 pulse 71, respiratory 18, blood pressure 147/83, pulse ox 96% om room air. GENERAL: Patient awake, alert, and oriented times three in no acute distress. HEENT: Normocephalic, atraumatic. PULMONARY: Bilateral clear to auscultation. CARDIAC: Irregular non tachycardia. ABDOMEN: Soft, non-tender, non-distended. Positive bowel sounds. EXTREMITIES: No edema bilateral lower extremity. NEUROLOGIC: Diminished sensation of the left facial area. No tongue deviation. Other cranial nerves II through XII grossly intact. Left upper and lower extremities slightly weaker about 4/5. Right upper and lower extremity strength intact. Sensation slightly diminished as per patient left upper and lower extremity to light touch. Electrocardiogram a-fib with rate of 75. Q-wave inversion V2, V3 and V4. LABORATORY DATA: WBC 6.4, H H 15.6/44.7, platelets 244. Chemistry: Sodium 140, potassium 3.5, chloride 105, bicarbonate 27, BUN 9, creatinine 0.87. Cardiac enzyme negative times 1. CT angio of the neck and head preliminary negative. CT head is negative. MRI of the brain pending. ASSESSMENT AND PLAN: This is 51-year-old male with underlying medical history of Gullian[place], paroxysmal atrial fibrillation, diabetes type 2 non-insulin dependent, hypertension, dyslipidemia, complex migraine, chronic back pain, nephrolithiasis, morbid obesity with gastric bypass, GERD, depression, admitted with headache and left sided upper and lower extremity weakness. 1. Headache with left upper and lower extremity weakness likely secondary to complex migraine versus rule out cerebrovascular accident (CVA). Follow up MRI of the brain. Given Reglan and Toradol with improvement. Neurology consulted. Neuro checks. Follow blood pressure. Withholding metformin and ARBs given patient received IV contrast. Follow up kidney function. Aspirin 325 as per neurology. Continue statin. Follow up A1c and lipid panel. 2. History of atrial fibrillation. Telemetry monitoring. Continue aspirin. Follow up with cardio as outpatient. Continue flecainide and bisoprolol. 3. History of Gullian-[place]. Continue to monitor. 4. Type 2 diabetes history. Holding metformin. Insulin as protocol. 5. Hypertension. Monitor blood pressure withholding ARBs given patient recently had contrast and is being ruled out for cerebrovascular accident (CVA). Continue bisoprolol. Monitor blood pressure. 6. Dyslipidemia. Continue statin. 7. Gout. Outpatient follow up. 8. Chronic pain. Continue current medication. 9. History of nephrolithiasis. Outpatient follow up. 10. History of morbid obesity with gastric bypass. Continue current medication. 11. Depression. Continue current medication. 12. Deep vein thrombosis prophylaxis. Heparin subcu. 13. Benign prostatic hyperplasia (BPH). Continue current medication. DISPOSITION: Pending physical therapy and neurology consultation and MRI.
[2017-04-02] MEDS ORDERED: HumaLOG INSULIN (NovoLOG) PER UNIT SC SCH (21:00)
[2017-04-02] MEDS ORDERED: GABAPENTIN 300 MG CAP PO SCH (21:00)
[2017-04-02] MEDS ORDERED: CitaloPRAM (CeleXA) 10 MG TABLET PO SCH (21:00)
[2017-04-02] MEDS ORDERED: OMEPRAZOLE 20 MG CAP PO SCH (21:00)
[2017-04-02] MEDS ORDERED: ATORVASTATIN 20 MG TAB PO SCH (21:00)
[2017-04-02] MEDS ORDERED: BISOPROLOL FUMARATE 5 MG TAB PO SCH (21:00)
[2017-04-02] MEDS: HEPARIN SOD (PORCINE) 5000 UNITS/ML VIAL SQ SCH (21:31)
[2017-04-02] MEDS: FLECAINIDE 50MG TABLET PO SCH (21:31)
[2017-04-02 21:32] VITALS: BP 156/93
[2017-04-03] VITALS: BP 149/77
[2017-04-03 04:00] VITALS: BP 152/85
[2017-04-03 06:15] LABS: MEAN CORPUSCULAR HEMOGLOBIN 30.1 pg (27.0-33.0); MEAN CORPUSCULAR HGB CONC 34.7 g/dl (32.0-36.5); MEAN CORPUSCULAR VOLUME 86.8 fl (80.0-96.0); RED CELL DISTRIBUTION WIDTH 12.4 % (11.5-14.5); WHITE BLOOD COUNT 4.9 K/mm3 (4.0-10.0)
[2017-04-03 06:37] LABS: ANION GAP 6 MEQ/L (8-16); BLOOD UREA NITROGEN 13 MG/DL (7-18); CALCIUM LEVEL 8.4 MG/DL (8.5-10.1); CARBON DIOXIDE LEVEL 29 MEQ/L (21-32); CHLORIDE LEVEL 109 MEQ/L (98-107); CHOLESTEROL LEVEL 135 MG/DL (<200); CREATININE FOR GFR 0.68 MG/DL (0.70-1.30); GLOMERULAR FILTRATION RATE > 60.0 (>56); GLUCOSE, FASTING 130 MG/DL (70-105); MAGNESIUM LEVEL 2.1 MG/DL (1.8-2.4); POTASSIUM SERUM 3.6 MEQ/L (3.5-5.1); SODIUM LEVEL 144 MEQ/L (136-145); TRIGLYCERIDES LEVEL 170 MG/DL (<150)
[2017-04-03 07:30] VITALS: BP 179/94
[2017-04-03] MEDS: HumaLOG INSULIN (NovoLOG) PER UNIT SC SCH ×3 (07:30→18:05)
[2017-04-03] MEDS: KCL 20MEQ in NS 1000ML 1,000 ML IV SCH (07:44)
[2017-04-03] MEDS ORDERED: GABAPENTIN 100 MG CAP PO SCH (09:00)
[2017-04-03] MEDS ORDERED: CYANOCOBALAMIN 500 MCG TAB PO SCH (09:00)
[2017-04-03] MEDS ORDERED: FINASTERIDE 5 MG TAB PO SCH (09:00)
[2017-04-03] MEDS ORDERED: ASPIRIN 325 MG TAB PO SCH (09:00)
[2017-04-03] MEDS ORDERED: MULTIVITAMINS/MINERALS THERAP 1 TAB PO SCH (09:00)
[2017-04-03] MEDS: FLECAINIDE 50MG TABLET PO SCH (09:37)
[2017-04-03] MEDS: HEPARIN SOD (PORCINE) 5000 UNITS/ML VIAL SQ SCH (09:38)
[2017-04-03] MEDS: PERCOCET 5MG/325MG TAB PO PRN (09:39)
--- NOTE | 2017-04-03 11:49 | REP ---
CT ANGIO NECK: HISTORY: Infarction. Contrast: Isovue 370, 75 mL. The distal common carotid arteries and origins of the external and internal carotid arteries are normal. The vertebral arteries are equal in size and patent. There are no atherosclerotic lesions. The origins of the great vessels are normal. IMPRESSION: Normal CT angio neck. Signed by Ralph Bernstein MD 04/03/2017 12:15 P
--- NOTE | 2017-04-03 11:50 | REP ---
CT ANGIO HEAD: HISTORY: Infarction. CONTRAST: Isovue 370, 100 mL. There is no aneurysm, arteriovenous malformation or atherosclerotic lesion. The major intracranial vessels are patent. IMPRESSION: There is no aneurysm or arteriovenous malformation. Signed by Ralph Bernstein MD 04/03/2017 12:15 P
[2017-04-03 12:00] VITALS: BP 120/78
[2017-04-03 16:00] VITALS: BP 152/56
--- NOTE | 2017-04-03 16:13 | IPNPDOC ---
Text Note Date of Service The patient was seen on 04/03/17. NOTE Subjective: Patient is a51 year old male with a PMHx of Complex migraines, Gullian -[place], Paroxysmal A.fib (on ASA), NIDDM2, HTN, DLP, Chronic back pain, Hx of Nephrolithiasis, Morbid obesity, Gastric bypass, Depression and Gout who presented to the ER with headache and left sided weakness. Patient received imagign which was negative for a CVA. He was admitted for a complex migraine. Patient was seen and examined at the bedside. He notes that he still has left sided weakness and a mild headache that is exacerbated with light. He notes that he has some blurred vision. He denies any other issues at this time. Objective: Vitals (See below) General: Lying in bed, no acute distress, comfortable, AAOx3 HEENT: NC, AT CVS: RRR, +S1S2 Lungs: Fair air entry b/l, -w/r/r Abdomen: Soft, ND, NT, +BSx4 Extremities: +PPx4, - Edema, - Calf tenderness Neuro: 3/5 muscle strength at LUE and LLE, 5/5 muscle strength at RUE and RLE, CN 2-12 grossly intact, no focal sensory deficits noted Assessment and plan: 1. Headache and left sided weakness - possibly 2/2 complex migraine, less likely 2/2 CVA - Presented with headache and weakness on the left sided that started abruptly - Has history of headaches before, but has not experienced weakness - CT head / CTA Neck and head / MRI head are negative for any acute pathology - c/w Neurochecks - Neurology on consult - c/w ASA 325 and Atorvastatin - c/w Tizanidine - Physical therapy to evaluate patient 2. Paroxysmal a. fib - c/w Flecainide and Bisoprolol - c/w ASA 325 3. Hx of Gullian-[place] 4. NIDDM2 - c/w ISS 5. HTN - Given possible CVA; will allow permissive HTN; SBP 140-180s - Will hold ARB - c/w Bisoprolol 6. DLP - c/w Atorvastatin 7. Gout 8. Chronic back pain 9. Hx of Nephrolithiasis 10. Morbid obesity / Hx of Gastric bypass - complicating medical management 11. BPH 12. DVT prophylaxis - c/w Heparin VS,Fishbone, I+O VS, Fishbone, I+O Laboratory Tests 04/03/17 05:29 Red Blood Count 4.55, Mean Corpuscular Volume 86.8, Mean Corpuscular Hemoglobin 30.1, Mean Corpuscular Hemoglobin Concent 34.7, Red Cell Distribution Width 12.4 Vital Signs Date Time Temp Pulse Resp B/P (MAP) Pulse Ox O2 Delivery O2 Flow Rate FiO2 04/03/17 12:00 98.6 86 18 120/78 (92) 97 Room Air I&O- Last 24 Hours up to 6 AM 04/03/17 06:00 Intake Total 1000 ml Output Total 0 ml Balance 1000 ml MECCA BOND MD April 03, 2017 16:13
[2017-04-03] MEDS ORDERED: ASPI325T PO (17:07)
--- NOTE | 2017-04-04 19:40 | DSES ---
DATE OF ADMISSION: 04/02/2017 DATE OF DISCHARGE: 04/03/2017 ATTENDING PHYSICIAN: Dr. Nash Beauchamp PRIMARY CARE PHYSICIAN: Unknown. REFERRING PHYSICIAN: None. CONSULTING PHYSICIAN: Ramiro CONDITION ON DISCHARGE: Stable. FINAL DIAGNOSIS: Complicated migraine headache. PROCEDURES: None. HISTORY OF PRESENT ILLNESS: Patient is a 51-year-old male with a past medical history of complex migraine, Guillain-[place], paroxysmal atrial fibrillation on aspirin, dmh-qzqgsbb-qnpzoezox diabetes mellitus type 2, hypertension, dyslipidemia, chronic back pain, history of nephrolithiasis, morbid obesity, gastric bypass, depression, gout, who presented to the emergency room with headache and left-sided weakness. Patient received imaging, which was negative for cerebrovascular accident (CVA). He was admitted for a complex migraine. HOSPITAL COURSE: 1. Headache and left-sided weakness, possibly secondary to complex migraine, less likely secondary to CVA . Presented with headache and weakness on left side that started abruptly. He Had history of headaches before but has not experienced weakness in the past. CT head, CTA neck and head, and MRI head were all negative for any acute pathology. Continue with neurologic checks. Neurology was consulted, have evaluated patient, and have cleared him for discharge. Patient was continued with aspirin 325, up from his baseline of 81. He is continued with atorvastatin. Patient was to use tizanidine for his headaches, which was continued. Physical therapy has evaluated patient and will be re-evaluating the patient again and have cleared for discharge. 2. Paroxysmal atrial fibrillation. Continue with flecainide and bisoprolol. Continue with aspirin 325. 3. History of Guillain-[place]. Continue to monitor. 4. Daq-uoiaghr-xbarjpibt diabetes mellitus type 2. Continue with insulin sliding scale. Upon discharge, will continue with metformin. 5. Hypertension. Given possible CVA, will allow permissive hypertension. However, we will restarting ARB upon discharge and continue with bisoprolol. 6. Dyslipidemia. Continue with atorvastatin. 7. Gout. 8. Chronic back pain. 9. History of nephrolithiasis. 10. Morbid obesity/history of gastric bypass complicating medial management. 11. BPH 12. Deep venous thrombosis (DVT) prophylaxis. Continue with heparin. 11. Depression. Continue current medication. DISCHARGE MEDICATION: Patient will be discharged home with the following medication list: - atorvastatin 20 mg by mouth nightly - bisoprolol 5 mg by mouth nightly - Invokana 100 mg by mouth daily - Soma 350 mg by mouth daily as needed spasm - vitamin D5000 units by mouth daily - citalopram 20 mg by mouth nightly - Citracal/vitamin two tablets by mouth nightly - colchicine 0.6 mg by mouth as directed - vitamin B12, 500 mcg by mouth daily - finasteride 5 mg by mouth daily - flecainide 50 mg by mouth twice a day - gabapentin 300 mg by mouth nightly - gabapentin 100 mg by mouth daily - melatonin 3 mg by mouth nightly as needed sleep - metformin 1000 mg by mouth twice a day - multivitamins one tablet by mouth daily - omeprazole 40 mg by mouth nightly - Percocet 5/325 one tablet by mouth daily as needed pain - tizanidine 2 mg by mouth three times a day as needed spasm/headache - valsartan 160 mg by mouth nightly STOPPED MEDICATIONS: Include: - aspirin 81 mg by mouth daily NEW MEDICATIONS PRESCRIBED: Include: - aspirin 325 mg by mouth daily DISCHARGE INSTRUCTIONS: Patient has been advised to followup with his primary care provider and urology within the next 7 days. He has been advised to remain compliant with treatment plan and medications and return to the emergency room if he experiences any problems. TIME SPENT ON DISCHARGE: 35 minutes.
== END 2017-04-03 19:25 | disposition home or self-care (01) | DRG 103 ==
LOC: EDBD 13:24 → M ED 13:55 → M ED INP 15:23 → M PCU 18:33
PROVIDERS: ADMIT Hospitalist; ATTEND Internal Medicine
DX: G43.109 Migraine with aura, not intractable, without status migrainosus (principal); G61.0 Guillain-Barre syndrome; I48.0 Paroxysmal atrial fibrillation; E11.9 Type 2 diabetes mellitus without complications; I10 Essential (primary) hypertension; E78.5 Hyperlipidemia, unspecified; M54.9 Dorsalgia, unspecified; E66.01 Morbid (severe) obesity due to excess calories; F32.9 Major depressive disorder, single episode, unspecified; M10.9 Gout, unspecified; Z90.49 Acquired absence of other specified parts of digestive tract; Z79.84 Long term (current) use of oral hypoglycemic drugs; Z98.84 Bariatric surgery status; Z79.899 Other long term (current) drug therapy; Z79.82 Long term (current) use of aspirin; Z79.891 Long term (current) use of opiate analgesic; G89.29 Other chronic pain; M62.81 Muscle weakness (generalized); N40.0 Benign prostatic hyperplasia without lower urinary tract symptoms; Z68.28 Body mass index [BMI] 28.0-28.9, adult; Z87.442 Personal history of urinary calculi

== ENCOUNTER → 2017-04-04 | Outpatient (CLI) | payer OTHER ==
[~2017-04-04] MED LIST changes: +ASPI325T PO; +ISOVUE-M 300 61% 15ML VIAL (Q9967) As Ordered ONE; +LIDOCAINE 1% SDV INJ 30 ML VIAL As Ordered ONE; +VALS1TAB47 PO; +diazePAM 5 MG TAB As Ordered ONE; +methylPREDNISolone SUSP 40 MG/ML (DEPO-medrol) VIAL (J1030) As Ordered ONE; +oxyCODONE 5MG TAB As Ordered ONE
--- NOTE | 2017-04-04 14:59 | REP ---
PARTIAL THORACIC SPINE SERIES: Three views. HISTORY: Cervical epidural steroid injection for pain. 20 seconds of fluoroscopy time is reported. FINDINGS: A sequence of three last image hold fluoroscopically obtained spot radiographs of the cervicothoracic junction document needle position and contrast injection associated with epidural injection procedure. Signed by Nick Stanley MD 04/04/2017 04:38 P
--- NOTE | 2017-04-15 01:05 | ECWPNPC ---
PATIENT NAME: HAI DAIGLE : 1965 GENDER: MALE VISIT DATE: 04/04/2017 DISCHARGE DATE: 04/04/17 1502 VISIT LOCKED DATE TIME: PHYSICIAN: BONY ANTOINE RESOURCE: BONY ANTOINE REASON FOR APPOINTMENT 1. KILO HISTORY OF PRESENT ILLNESS HISTORY OF PRESENT ILLNESS: PAIN THE PATIENT DESCRIBES THE PAIN... FALL RISK SCREENING: SCREENING :NO FALLS IN THE PAST YEAR CURRENT MEDICATIONS TAKING PROSCAR 5 MG TABLET 1 TABLET ORALLY ONCE A DAY, NOTES: 04/04/17 07 TAKING LIPITOR 20 MG TABLET 1 TABLET ORALLY ONCE A DAY, NOTES: 189904/03/17 TAKING ASPIR-81 81 MG TABLET DELAYED RELEASE 1 TABLET ORALLY ONCE A DAY, NOTES: 69904/04/17 TAKING CELEXA 20 MG TABLET 1 TABLET ORALLY ONCE A DAY, NOTES: 209904/03/17 TAKING FLECAINIDE ACETATE 50 MG TABLET 1 TABLET ORALLY EVERY 12 HRS, NOTES: 69904/04/17 TAKING ZEBETA 5 MG TABLET 1 TABLET ORALLY ONCE A DAY, NOTES: 209904/03/17 TAKING MULTI FOR HIM TABLET DIRECTED ORALLY , NOTES: 69904/04/17 TAKING VITAMIN B-12 500 MCG TABLET 1 TABLET ORALLY ONCE A DAY, NOTES: 69904/04/17 TAKING CITRACAL PLUS 400MG TABLET 2 TABS ORALLY AT BEDTIME, NOTES: 209904/03/17 TAKING TIZANIDINE HCL 2 MG TABLET 1 TABLET NEEDED ORALLY EVERY 8 HRS, NOTES: 04/03 08 TAKING METFORMIN HCL 1000 MG TABLET 1 TABLET WITH MEALS ORALLY TWICE DAILY, NOTES: 04/02/17 TAKING GABAPENTIN 300 MG TABLET ORALLY AT BEDTIME, NOTES: 04/03/17 9PM TAKING MAGNESIUM 250 MG TABLET 1 CAPSULE WITH A MEAL ORALLY ONCE A DAY, NOTES: 69904/04/17 TAKING PRILOSEC 40 MG CAPSULE DELAYED RELEASE 1 CAPSULE ORALLY ONCE A DAY, NOTES: 69904/04/17 TAKING VALSARTAN 160 MG TABLET 1 TAB ORALLY ONCE A DAY, NOTES: 209904/03/17 TAKING MELATONIN 3 MG TABLET ORALLY AT BEDTIME, NOTES: NONE RECENT TAKING COLCHICINE 0.6 MG CAPSULE ORALLY DIRECTED, NOTES: NONE RECENT TAKING SOMA 350 MG TABLET 1 TABLET NEEDED ORALLY ONE AT BEDTIME MDD=1, NOTES: 3-4 DAYS AGO TAKING INVOKANA 100 MG TABLET 1 TABLET ORALLY ONCE A DAY, NOTES: 04/02/17 TAKING VITAMIN D3 MAXIMUM STRENGTH 5000 UNIT CAPSULE 1 CAPSULE ORALLY DAILY, NOTES: 0700 04/04/17 TAKING PERCOCET 5-325 MG TABLET 1 TABLET ORALLY ONCE DAILY PRN FOR PAIN MDD=1, NOTES: 04/03 0800 TAKING GABAPENTIN 100 MG CAPSULE ORALLY DAILY, NOTES: 04/04/17 0900 NOT-TAKING AMOXICILLIN 500 MG CAPSULE 1 CAPSULE ORALLY EVERY 8 HRS, NOTES: 12/11/16 0630 NOT-TAKING VITAMIN D 1000 UNIT TABLET 1 TABLET ORALLY ONCE A DAY, NOTES: 0500 MEDICATION LIST REVIEWED AND RECONCILED WITH THE PATIENT PAST MEDICAL HISTORY DIABETES MIGRAINES PAF HTN GERD HIGH CHOLESTEROL GUILLAIN BARRE ALLERGIES N.K.D.A. REVIEW OF SYSTEMS CONSTITUTIONAL: ANY CHANGE IN YOUR MEDICAL CONDITION? YES, JUST IN HOSPITAL YESTERDAY WITH MIGRAINE . CHILLS NO . FEVER NO . INFECTION: DO YOU HAVE NEW INFECTIONS? NO . DO YOU HAVE HISTORY OF MRSA? NO . MUSCULOSKELETAL: ANY NEW PATTERNS OF PAIN OR NUMBNESS? NO . GASTROENTEROLOGY: ANY NEW CHANGE IN BOWEL CONTROL? NO . GENITOURINARY: ANY NEW CHANGE IN BLADDER CONTROL? NO . IS THERE A CHANCE YOU COULD BE ? NO . HEMATOLOGY/LYMPH: DO YOU TAKE ANY BLOOD THINNERS? (FOR EXAMPLE- COUMADIN, PLAVIX, AGGRENOX, PLATEL, PRADAXA, OR XARELTO) NO . WHEN WAS YOUR LAST DOSE? DATE: TIME: . NEUROLOGY: HAVE YOU FALLEN IN THE PAST 6 MONTHS? NO . ANY NEW EXTREMITY NUMBNESS OR WEAKNESS? NO . CARDIOLOGY: DO YOU HAVE A PACEMAKER OR DEFIBRILLATOR? NO . RESPIRATORY: HAVE YOU BEEN SICK IN THE PAST WEEK? NO . FEVER NO . FLU LIKE SYMPTOMS? NO . COUGH NO . INTEGUMENTARY: DO YOU HAVE ANY RASHES OR OPEN SORES? NO . ALLERGIC/IMMUNO: ARE YOU ALLERGIC TO SHELLFISH OR IV DYE? NO . ANY NEW ALLERGIES? NO . PSYCHIATRIC: DO YOU HAVE THOUGHTS OF HURTING YOURSELF OR SOMEONE ELSE? NO . ARE YOU ABUSED, NEGLECTED, OR IN AN UNSAFE ENVIRONMENT? NO . ENDOCRINOLOGY: ARE YOU DIABETIC? YES . OTHER: DO YOU NEED ANY PRESCRIPTIONS? NO . IF YES, PLEASE LIST: ____ . ANY NEW PROBLEMS WITH YOUR MEDICATIONS? NO . WHEN DID YOU LAST EAT? 5AM . WHEN DID YOU LAST DRINK? 9AM . WHAT DID YOU LAST DRINK? WATER . NAME OF PERSON DRIVING YOU HOME? AUDREY . DO YOU HAVE ANY OTHER QUESTIONS OR CONCERNS NO . REVIEWED BY: PROVIDER: . VITAL SIGNS WT 202.4 LBS, HT 70 IN, BMI 29.04 INDEX, BP 154/95 MM HG, HR 66 /MIN, RR 18 /MIN, TEMP 97.1 F, OXYGEN SAT % 98%, NA INITIALS SC 12:03, REVIEWED BY: NL. ASSESSMENTS CERVICAL DISC DISORDER AT C6-C7 LEVEL WITH RADICULOPATHY - M50.123 (PRIMARY) PROCEDURES PN CERVICAL EPIDURAL PRE PROCEDURE DIAGNOSIS CERVICAL DISC DISORDER WITH RADICULOPATHY POST PROCEDURE DIAGNOSIS CERVICAL DISC DISORDER WITH RADICULOPATHY PROCEDURE CERVICAL EPIDURAL STEROID INJECTION UNDER FLUOROSCOPIC GUIDANCE SURGEON DR. BONY ANTOINE GREEN COFFEE BLENDER NONE ANESTHESIA LOCAL PRE PROCEDURE NOTE THE PATIENT HAS A HISTORY OF CHRONIC CERVICAL PAIN. I EVALUATE THE PATIENT AND REVIEWED THE CHART. I WENT OVER THE RISKS, ALTERNATIVES, AND BENEFITS ASSOCIATED WITH THIS PROCEDURE. THE PATIENT WOULD LIKE TO PROCEED AND GIVE CONSENT TO PERFORMED THE PROCEDURE. THE PATIENT DENIES UNEXPLAINABLE WEIGHT LOSS, FEVER, CHILLS, OR NEW CHANGES IN URINARY OR BOWEL CONTROL DESCRIPTION OF PROCEDURE THE PATIENT WAS BROUGHT TO THE PROCEDURE ROOM AND PLACED IN THE PRONE POSITION. THE CERVICOTHORACIC AREA WAS CLEANED WITH BETADINE SOLUTION AND DRAPED ASEPTICALLY. THE PROCEDURE WAS DONE UNDER STERILE CONDITIONS. I CHECKED LATERALITY AND THE LEVEL WHERE THE PROCEDURE WAS GOING TO BE PERFORMED WITH THE PATIENT AND THE SUPPORTING STAFF AT THE MOMENT OF THE TIME OUT IN THE PROCEDURE ROOM. UNDER FLUOROSCOPIC GUIDANCE, THE TARGET WAS SELECTED AT THE INTERLAMINAR LEVEL OF C7-T1. LIDOCAINE WAS USED TO NUMB THE SKIN AND THE SUBCUTANEOUS TISSUE BELOW IT. EPIDURAL TUOHY NEEDLE 17-GAUGE WAS ADVANCED UNDER FLUOROSCOPIC GUIDANCE AND FOLLOWING PATIENT FEEDBACK UNTIL THE EPIDURAL SPACE WAS REACHED 6 CM DEEP INTO THE SKIN BY THE LOSS OF RESISTANCE TECHNIQUE. ISOVUE M DYE 30%, 0.25 ML, WAS INJECTED SHOWING ADEQUATE SPREAD OF THE DYE. THEN, A SOLUTION OF 3 ML OF NORMAL SALINE WITH DEPO-MEDROL 60 MG WAS INJECTED SLOWLY FOLLOWING PATIENT FEEDBACK. THERE WAS NO EVIDENCE OF BLOOD, PARESTHESIA OR CEREBROSPINAL FLUID DURING THE PROCEDURE. THE PATIENT WAS SENT TO THE RECOVERY ROOM. THE PATIENT WAS MOVING THE EXTREMITIES AND DOING WELL. THERE WAS NO COMPLICATION DURING THE PROCEDURE. FLUOROSCOPY TIME WAS 20 SECONDS POST PROCEDURE NOTE THE PATIENT WILL BE SEEN IN A FOLLOW UP IN THE NEXT FEW WEEKS. INSTRUCTIONS WERE GIVEN, QUESTIONS WERE ANSWERED, AND THE PATIENT EXPRESSED UNDERSTANDING AND AGREES WITH THE PLAN. I, VIC SABA, DOCUMENTED THE ABOVE INFORMATION ACTING A SCRIBE FOR DR. ANTOINE. I HAVE REVIEWED THE ABOVE DOCUMENT, WRITTEN BY VIC LOPEZIBOlaf AND I VERIFY THAT IT IS ACCURATE DIAGNOSTIC IMAGING [facility] FLUORO GUIDE SPINE INJECTION (PAIN)[id number] PROCEDURE CODES 02499 CERVICAL/THORACIC W/ IMAGING 6045F RADXPS IN END [id number] PXD DISPOSITION & COMMUNICATION FOLLOW UP 3 WEEKS ELECTRONICALLY SIGNED BY BONY ANTOINE MD ON 04/14/2017 AT 09:55 PM EDT DISCLAIMER : THIS IS A VISIT SUMMARY EXTRACTED FROM THE [facility] CHART. IT IS NOT A COPY OF THE [facility] PROGRESS NOTE. MTDD
== END ==
LOC: M PAIN 11:40
PROVIDERS: ATTEND Anesthesiology
DX: G89.29 Other chronic pain (principal); M50.123 Cervical disc disorder at C6-C7 level with radiculopathy; E11.9 Type 2 diabetes mellitus without complications; G43.909 Migraine, unspecified, not intractable, without status migrainosus; I10 Essential (primary) hypertension; K21.9 Gastro-esophageal reflux disease without esophagitis; E78.00 Pure hypercholesterolemia, unspecified; G61.0 Guillain-Barre syndrome; Z79.82 Long term (current) use of aspirin; Z79.84 Long term (current) use of oral hypoglycemic drugs; Z79.899 Other long term (current) drug therapy
CPT/HCPCS: 62321; J1030; Q9967

== ENCOUNTER → 2017-04-29 | Outpatient (CLI) | payer OTHER ==
[~2017-04-29] MED LIST changes: +ACET-683 PO; -ACET500T37 PO; +AMLO2.5T; -ASPI81TA13 PO; +ASPI81TA24 PO; +ASPI81TA85 PO; -COLA100C3 PO; +COLA100C5 PO; +IBUP-1022 PO; -ISOVUE-M 300 61% 15ML VIAL (Q9967) As Ordered ONE; -LIDOCAINE 1% SDV INJ 30 ML VIAL As Ordered ONE; +MAGN1TAB25 PO; -MELA0.02 PO; +MELA3TAB49 PO; -METF1000 PO; +METF10004 PO; +MOBI4TAB PO; -MOBI7.5T10 PO; -NAPR250T2 PO; +NAPR250T4 PO; +PERC5TAB12 PO; -PERC5TAB6 PO; +POTA75TA PO; -SENO8.6T2 PO; +SENO8.6T5 PO; -ULTR50TA PO; +ULTR50TA8 PO; +VOLT1GEL15 TD; -diazePAM 5 MG TAB As Ordered ONE; -methylPREDNISolone SUSP 40 MG/ML (DEPO-medrol) VIAL (J1030) As Ordered ONE; -oxyCODONE 5MG TAB As Ordered ONE
--- NOTE | 2017-05-17 01:19 | ECWPNPC ---
PATIENT NAME: HAI DAIGLE : 1965 GENDER: MALE VISIT DATE: 04/29/2017 DISCHARGE DATE: 04/29/17921 VISIT LOCKED DATE TIME: PHYSICIAN: ELVIN CROWE RESOURCE: ELVIN CROWE REASON FOR APPOINTMENT 1. POST CE HISTORY OF PRESENT ILLNESS HISTORY OF PRESENT ILLNESS: PAIN THE PATIENT DESCRIBES THE PAIN... FALL RISK SCREENING: SCREENING :NO FALLS IN THE PAST YEAR TODAY'S VISIT: NOTES: RATES PAIN TODAY 4/10. IS S/P CEB COMPLETED ON 04/04/17. PAIN LEVEL PRIOR TO PROCEDURE 5/10 AND POST PROCEDURE 0/10 X 2-3 WEEKS WITH RETURN OF PAIN IN MID UPPER BACK AT 3/10. RATES PAIN TODAY 4/10. HAS BEEN HAVING PAIN IN NECK WITH RADIATION DOWN THE LEFT ARM. HAD EPISODE OF LOSS OF CONSCONSCIOUSNESS 3 WEEKS AGO - WAS HOSPITALIZED FOR 2 DAYS. HAD FULL WORKUP AND IT WAS TOLD HAD COMPLEX MIGRAINE. . CURRENT MEDICATIONS TAKING PROSCAR 5 MG TABLET 1 TABLET ORALLY ONCE A DAY TAKING LIPITOR 20 MG TABLET 1 TABLET ORALLY ONCE A DAY TAKING ASPIR-81 81 MG TABLET DELAYED RELEASE 1 TABLET ORALLY ONCE A DAY TAKING CELEXA 20 MG TABLET 1 TABLET ORALLY ONCE A DAY TAKING FLECAINIDE ACETATE 50 MG TABLET 1 TABLET ORALLY EVERY 12 HRS TAKING ZEBETA 5 MG TABLET 1 TABLET ORALLY ONCE A DAY TAKING MULTI FOR HIM TABLET DIRECTED ORALLY TAKING VITAMIN B-12 500 MCG TABLET 1 TABLET ORALLY ONCE A DAY TAKING CITRACAL PLUS 400MG TABLET 2 TABS ORALLY AT BEDTIME TAKING TIZANIDINE HCL 2 MG TABLET 1 TABLET NEEDED ORALLY EVERY 8 HRS, NOTES: 04/03 0800 TAKING METFORMIN HCL 1000 MG TABLET 1 TABLET WITH MEALS ORALLY TWICE DAILY TAKING GABAPENTIN 300 MG TABLET ORALLY AT BEDTIME TAKING MAGNESIUM 250 MG TABLET 1 CAPSULE WITH A MEAL ORALLY ONCE A DAY TAKING PRILOSEC 40 MG CAPSULE DELAYED RELEASE 1 CAPSULE ORALLY ONCE A DAY TAKING VALSARTAN 160 MG TABLET 1 TAB ORALLY ONCE A DAY TAKING MELATONIN 3 MG TABLET ORALLY AT BEDTIME, NOTES: NONE RECENT TAKING COLCHICINE 0.6 MG CAPSULE ORALLY DIRECTED, NOTES: NONE RECENT TAKING SOMA 350 MG TABLET 1 TABLET NEEDED ORALLY ONE AT BEDTIME MDD=1 TAKING INVOKANA 100 MG TABLET 1 TABLET ORALLY ONCE A DAY TAKING VITAMIN D3 MAXIMUM STRENGTH 5000 UNIT CAPSULE 1 CAPSULE ORALLY DAILY TAKING PERCOCET 5-325 MG TABLET 1 TABLET ORALLY ONCE DAILY PRN FOR PAIN MDD=1 TAKING GABAPENTIN 100 MG CAPSULE ORALLY DAILY NOT-TAKING AMOXICILLIN 500 MG CAPSULE 1 CAPSULE ORALLY EVERY 8 HRS, NOTES: 12/11/16 0630 NOT-TAKING VITAMIN D 1000 UNIT TABLET 1 TABLET ORALLY ONCE A DAY, NOTES: 0500 MEDICATION LIST REVIEWED AND RECONCILED WITH THE PATIENT PAST MEDICAL HISTORY DIABETES MIGRAINES PAF HTN GERD HIGH CHOLESTEROL GUILLAIN BARRE ALLERGIES N.K.D.A. REVIEW OF SYSTEMS REVIEWED BY: PROVIDER: ELVIN RESENDIZ . CONSTITUTIONAL: ANY CHANGE IN YOUR MEDICAL CONDITION? NO . CHILLS NO . FEVER NO . INFECTION: DO YOU HAVE NEW INFECTIONS? NO . DO YOU HAVE HISTORY OF MRSA? NO . MUSCULOSKELETAL: ANY NEW PATTERNS OF PAIN OR NUMBNESS? NO . GASTROENTEROLOGY: ANY NEW CHANGE IN BOWEL CONTROL? NO . GENITOURINARY: ANY NEW CHANGE IN BLADDER CONTROL? NO . IS THERE A CHANCE YOU COULD BE ? NO . HEMATOLOGY/LYMPH: DO YOU TAKE ANY BLOOD THINNERS? (FOR EXAMPLE- COUMADIN, PLAVIX, AGGRENOX, PLATEL, PRADAXA, OR XARELTO) NO . WHEN WAS YOUR LAST DOSE? DATE: TIME: . NEUROLOGY: HAVE YOU FALLEN IN THE PAST 6 MONTHS? YES FELL OFF A STEP 10 DAYS AGO . ANY NEW EXTREMITY NUMBNESS OR WEAKNESS? NO . CARDIOLOGY: DO YOU HAVE A PACEMAKER OR DEFIBRILLATOR? NO . RESPIRATORY: HAVE YOU BEEN SICK IN THE PAST WEEK? NO . FEVER NO . FLU LIKE SYMPTOMS? NO . COUGH NO . INTEGUMENTARY: DO YOU HAVE ANY RASHES OR OPEN SORES? NO . ALLERGIC/IMMUNO: ARE YOU ALLERGIC TO SHELLFISH OR IV DYE? NO . ANY NEW ALLERGIES? NO . PSYCHIATRIC: DO YOU HAVE THOUGHTS OF HURTING YOURSELF OR SOMEONE ELSE? NO . ARE YOU ABUSED, NEGLECTED, OR IN AN UNSAFE ENVIRONMENT? NO . ENDOCRINOLOGY: ARE YOU DIABETIC? YES . OTHER: DO YOU NEED ANY PRESCRIPTIONS? NO . IF YES, PLEASE LIST: ____ . ANY NEW PROBLEMS WITH YOUR MEDICATIONS? NO . WHEN DID YOU LAST EAT? ____ . WHEN DID YOU LAST DRINK? ____ . WHAT DID YOU LAST DRINK? ____ . NAME OF PERSON DRIVING YOU HOME? ____ . DO YOU HAVE ANY OTHER QUESTIONS OR CONCERNS NO . VITAL SIGNS WT 195.0 LBS, HT 70 IN, BMI 27.98 INDEX, BP 118/83 MM HG, HR 85 /MIN, RR 16 /MIN, TEMP 97.5 F, OXYGEN SAT % 98%, NA INITIALS TL 0847, REVIEWED BY: KG. EXAMINATION GENERAL EXAMINATION: PSYCHALERT , ORIENTED X 3 , APPROPRIATE MOOD AND AFFECT , TALKATIVE. LUNGS:CLEAR TO AUSCULTATION BILATERALLY. HEART:HEART RATE REGULAR. MUSCULOSKELETAL:TENDER OVER THORACIC SPINOUS PROCESSES AT THE LEVEL OF T4-T6. , TRIGGER POINTS: AND TIGHT FIBROUS BANDS OVER THE LUMBOSACRAL AXIS.. , . RISES SLOWLY TO A STANDING POSITION. POSTURE UPRIGHT. GAIT WIDEBASED, ANTALGIC. POINT TENDERNESS OVER LUMBAR SPINOUS PROCESES AND ACROSS THE SACRUM LEFT SIDE> RIGHT.. 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 BRINGS IN MEDICATIONS WHICH IS APPROPRIATE FOR WHAT WAS DISPENSED. RECENT URINE TOXICOLOGY REVIEWED. NO UNAUTHORIZED MEDICATIONS. NO ILLICIT SUBSTANCES AND PRESCRIBED MEDICATIONS WERE PRESENT. PROCEDURE CODES FA211 ESTABILISHED PATIENT [facility] CHARGE DISPOSITION & COMMUNICATION FOLLOW UP 6 WEEKS (REASON: NECK/BACK PAIN) ELECTRONICALLY SIGNED BY MIRANDA NAVARRETE ON 05/15/2017 AT 06:37 PM EDT DISCLAIMER : THIS IS A VISIT SUMMARY EXTRACTED FROM THE [employer] CHART. IT IS NOT A COPY OF THE [employer] PROGRESS NOTE. TERESA
== END ==
LOC: M PAIN 08:40
PROVIDERS: ATTEND Nurse Practitioner Family
DX: M51.24 Other intervertebral disc displacement, thoracic region (principal); M50.220 Other cervical disc displacement, mid-cervical region, unspecified level; M79.1 Myalgia; Z79.82 Long term (current) use of aspirin; Z79.84 Long term (current) use of oral hypoglycemic drugs; Z79.891 Long term (current) use of opiate analgesic; Z79.899 Other long term (current) drug therapy; E11.9 Type 2 diabetes mellitus without complications; I10 Essential (primary) hypertension

== ENCOUNTER → 2017-05-23 | Outpatient (CLI) | payer OTHER ==
[~2017-05-23] MED LIST changes: +ISOVUE-M 300 61% 15ML VIAL (Q9967) As Ordered ONE; +LIDOCAINE 1% SDV INJ 30 ML VIAL As Ordered ONE; +diazePAM 5 MG TAB As Ordered ONE; +methylPREDNISolone SUSP 40 MG/ML (DEPO-medrol) VIAL (J1030) As Ordered ONE; +oxyCODONE 5MG TAB As Ordered ONE
--- NOTE | 2017-05-23 15:06 | REP ---
PARTIAL CERVICAL SPINE SERIES: Three views. HISTORY: Cervical epidural for pain. 9 seconds of fluoroscopy time is reported. FINDINGS: A sequence of three last image hold fluoroscopic spot radiographs of the cervicothoracic junction document needle position and contrast injection associated with cervical epidural injection procedure. Signed by Nick Stanley MD 05/23/2017 04:18 P
--- NOTE | 2017-06-03 23:48 | ECWPNPC ---
PATIENT NAME: HAI DAIGLE : 1965 GENDER: MALE VISIT DATE: 05/23/2017 DISCHARGE DATE: 05/23/17 1415 VISIT LOCKED DATE TIME: PHYSICIAN: BONY ANTOINE RESOURCE: BONY ANTOINE REASON FOR APPOINTMENT 1. THORACIC EPIDURAL HISTORY OF PRESENT ILLNESS HISTORY OF PRESENT ILLNESS: PAIN THE PATIENT DESCRIBES THE PAIN... FALL RISK SCREENING: SCREENING :NO FALLS IN THE PAST YEAR CURRENT MEDICATIONS TAKING PROSCAR 5 MG TABLET 1 TABLET ORALLY ONCE A DAY, NOTES: 59905-23-17 TAKING LIPITOR 20 MG TABLET 1 TABLET ORALLY ONCE A DAY, NOTES: 199905-22-17 TAKING ASPIR-81 81 MG TABLET DELAYED RELEASE 1 TABLET ORALLY ONCE A DAY, NOTES: 05-23 TAKING FLECAINIDE ACETATE 50 MG TABLET 1 TABLET ORALLY EVERY 12 HRS, NOTES: 05-22-171999 TAKING ZEBETA 5 MG TABLET 1 TABLET ORALLY ONCE A DAY, NOTES: 05-22-171999 TAKING MULTI FOR HIM TABLET DIRECTED ORALLY , NOTES: 05-23 TAKING VITAMIN B-12 500 MCG TABLET 1 TABLET ORALLY ONCE A DAY, NOTES: 05-23 TAKING CITRACAL PLUS 400MG TABLET 2 TABS ORALLY AT BEDTIME, NOTES: 05-22-171999 TAKING TIZANIDINE HCL 2 MG TABLET 1 TABLET NEEDED ORALLY EVERY 8 HRS, NOTES: 05-21-172099 TAKING METFORMIN HCL 1000 MG TABLET 1 TABLET WITH MEALS ORALLY TWICE DAILY, NOTES: 05-22-171999 TAKING MAGNESIUM 250 MG TABLET 1 CAPSULE WITH A MEAL ORALLY ONCE A DAY, NOTES: 59905-23-17 TAKING PRILOSEC 40 MG CAPSULE DELAYED RELEASE 1 CAPSULE ORALLY ONCE A DAY, NOTES: 05-22-171999 TAKING VALSARTAN 160 MG TABLET 1 TAB ORALLY ONCE A DAY, NOTES: 05-22-171999 TAKING MELATONIN 3 MG TABLET ORALLY AT BEDTIME, NOTES: T TAKING COLCHICINE 0.6 MG CAPSULE ORALLY DIRECTED, NOTES: NONE RECENT TAKING INVOKANA 100 MG TABLET 1 TABLET ORALLY ONCE A DAY, NOTES: 59905-22-17 TAKING VITAMIN D3 MAXIMUM STRENGTH 5000 UNIT CAPSULE 1 CAPSULE ORALLY DAILY, NOTES: 05-23 TAKING SOMA 350 MG TABLET 1 TABLET NEEDED ORALLY ONE AT BEDTIME MDD=1, NOTES: 05-20-17599 TAKING PERCOCET 5-325 MG TABLET 1 TABLET ORALLY ONCE DAILY PRN FOR PAIN MDD=1, NOTES: 05-20-17 0800 NOT-TAKING CELEXA 20 MG TABLET 1 TABLET ORALLY ONCE A DAY NOT-TAKING GABAPENTIN 300 MG TABLET ORALLY AT BEDTIME NOT-TAKING GABAPENTIN 100 MG CAPSULE ORALLY DAILY, NOTES: UNKNOWN NOT-TAKING AMOXICILLIN 500 MG CAPSULE 1 CAPSULE ORALLY EVERY 8 HRS, NOTES: 12/11/16 0630 NOT-TAKING VITAMIN D 1000 UNIT TABLET 1 TABLET ORALLY ONCE A DAY, NOTES: 0500 MEDICATION LIST REVIEWED AND RECONCILED WITH THE PATIENT PAST MEDICAL HISTORY DIABETES MIGRAINES PAF HTN GERD HIGH CHOLESTEROL GUILLAIN BARRE ALLERGIES N.K.D.A. REVIEW OF SYSTEMS REVIEWED BY: PROVIDER: . CONSTITUTIONAL: ANY CHANGE IN YOUR MEDICAL CONDITION? NO . CHILLS NO . FEVER NO . INFECTION: DO YOU HAVE NEW INFECTIONS? NO . DO YOU HAVE HISTORY OF MRSA? NO . MUSCULOSKELETAL: ANY NEW PATTERNS OF PAIN OR NUMBNESS? NO . GASTROENTEROLOGY: ANY NEW CHANGE IN BOWEL CONTROL? NO . GENITOURINARY: ANY NEW CHANGE IN BLADDER CONTROL? NO . IS THERE A CHANCE YOU COULD BE ? NO . HEMATOLOGY/LYMPH: DO YOU TAKE ANY BLOOD THINNERS? (FOR EXAMPLE- COUMADIN, PLAVIX, AGGRENOX, PLATEL, PRADAXA, OR XARELTO) NO . WHEN WAS YOUR LAST DOSE? DATE: TIME: . NEUROLOGY: HAVE YOU FALLEN IN THE PAST 6 MONTHS? NO . ANY NEW EXTREMITY NUMBNESS OR WEAKNESS? NO . CARDIOLOGY: DO YOU HAVE A PACEMAKER OR DEFIBRILLATOR? NO . RESPIRATORY: HAVE YOU BEEN SICK IN THE PAST WEEK? NO . FEVER NO . FLU LIKE SYMPTOMS? NO . COUGH NO . INTEGUMENTARY: DO YOU HAVE ANY RASHES OR OPEN SORES? NO . ALLERGIC/IMMUNO: ARE YOU ALLERGIC TO SHELLFISH OR IV DYE? NO . ANY NEW ALLERGIES? NO . PSYCHIATRIC: DO YOU HAVE THOUGHTS OF HURTING YOURSELF OR SOMEONE ELSE? NO . ARE YOU ABUSED, NEGLECTED, OR IN AN UNSAFE ENVIRONMENT? NO . ENDOCRINOLOGY: ARE YOU DIABETIC? YES . OTHER: DO YOU NEED ANY PRESCRIPTIONS? NO . IF YES, PLEASE LIST: ____ . ANY NEW PROBLEMS WITH YOUR MEDICATIONS? NO . WHEN DID YOU LAST EAT? ____ . WHEN DID YOU LAST DRINK? ____ . WHAT DID YOU LAST DRINK? ____ . NAME OF PERSON DRIVING YOU HOME? ____ . DO YOU HAVE ANY OTHER QUESTIONS OR CONCERNS NO . VITAL SIGNS WT 195.0 LBS, HT 70 IN, BMI 27.98 INDEX, BP 140/70 MANUAL, HR 95 /MIN, RR 16 /MIN, TEMP 96.2 F, OXYGEN SAT % 98%, NA INITIALS TL 1201, REVIEWED BY: KG. ASSESSMENTS CERVICAL DISC DISORDER WITH RADICULOPATHY, CERVICOTHORACIC REGION - M50.13 (PRIMARY) PROCEDURES PN CERVICAL EPIDURAL PRE PROCEDURE DIAGNOSIS CERVICAL DISC DISORDER WITH RADICULOPATHY POST PROCEDURE DIAGNOSIS CERVICAL DISC DISORDER WITH RADICULOPATHY PROCEDURE CERVICAL EPIDURAL STEROID INJECTION UNDER FLUOROSCOPIC GUIDANCE SURGEON DR. BONY ANTOINE ASSISTANT GOLF PROFESSIONAL NONE ANESTHESIA LOCAL PRE PROCEDURE NOTE THE PATIENT HAS A HISTORY OF CHRONIC CERVICAL PAIN. I EVALUATE THE PATIENT AND REVIEWED THE CHART. I WENT OVER THE RISKS, ALTERNATIVES, AND BENEFITS ASSOCIATED WITH THIS PROCEDURE. THE PATIENT WOULD LIKE TO PROCEED AND GIVE CONSENT TO PERFORMED THE PROCEDURE. THE PATIENT DENIES UNEXPLAINABLE WEIGHT LOSS, FEVER, CHILLS, OR NEW CHANGES IN URINARY OR BOWEL CONTROL DESCRIPTION OF PROCEDURE THE PATIENT WAS BROUGHT TO THE PROCEDURE ROOM AND PLACED IN THE PRONE POSITION. THE CERVICOTHORACIC AREA WAS CLEANED WITH BETADINE SOLUTION AND DRAPED ASEPTICALLY. THE PROCEDURE WAS DONE UNDER STERILE CONDITIONS. I CHECKED LATERALITY AND THE LEVEL WHERE THE PROCEDURE WAS GOING TO BE PERFORMED WITH THE PATIENT AND THE SUPPORTING STAFF AT THE MOMENT OF THE TIME OUT IN THE PROCEDURE ROOM. UNDER FLUOROSCOPIC GUIDANCE, THE TARGET WAS SELECTED AT THE INTERLAMINAR LEVEL OF C7-T1. LIDOCAINE WAS USED TO NUMB THE SKIN AND THE SUBCUTANEOUS TISSUE BELOW IT. EPIDURAL TUOHY NEEDLE 17-GAUGE WAS ADVANCED UNDER FLUOROSCOPIC GUIDANCE AND FOLLOWING PATIENT FEEDBACK UNTIL THE EPIDURAL SPACE WAS REACHED 6 CM DEEP INTO THE SKIN BY THE LOSS OF RESISTANCE TECHNIQUE. ISOVUE M DYE 30%, 0.25 ML, WAS INJECTED SHOWING ADEQUATE SPREAD OF THE DYE. THEN, A SOLUTION OF 3 ML OF NORMAL SALINE WITH DEPO-MEDROL 60 MG WAS INJECTED SLOWLY FOLLOWING PATIENT FEEDBACK. THERE WAS NO EVIDENCE OF BLOOD, PARESTHESIA OR CEREBROSPINAL FLUID DURING THE PROCEDURE. THE PATIENT WAS SENT TO THE RECOVERY ROOM. THE PATIENT WAS MOVING THE EXTREMITIES AND DOING WELL. THERE WAS NO COMPLICATION DURING THE PROCEDURE. FLUOROSCOPY TIME WAS 9 SECONDS POST PROCEDURE NOTE THE PATIENT WILL BE SEEN IN A FOLLOW UP IN THE NEXT FEW WEEKS. INSTRUCTIONS WERE GIVEN, QUESTIONS WERE ANSWERED, AND THE PATIENT EXPRESSED UNDERSTANDING AND AGREES WITH THE PLAN. I, VIC SABA, DOCUMENTED THE ABOVE INFORMATION ACTING A SCRIBE FOR DR. ANTOINE. I HAVE REVIEWED THE ABOVE DOCUMENT, WRITTEN BY VIC CANAS AND I VERIFY THAT IT IS ACCURATE DIAGNOSTIC IMAGING [facility] FLUORO GUIDANCE (PAIN)[id number] PROCEDURE CODES 19710 CERVICAL/THORACIC W/ IMAGING 6045F RADXPS IN END [id number] PXD DISPOSITION & COMMUNICATION FOLLOW UP 3 WEEKS ELECTRONICALLY SIGNED BY BONY ANTOINE MD ON 06/03/2017 AT 08:48 PM EDT DISCLAIMER : THIS IS A VISIT SUMMARY EXTRACTED FROM THE [employer] CHART. IT IS NOT A COPY OF THE [employer] PROGRESS NOTE. MTDD
== END ==
LOC: M PAIN 11:40
PROVIDERS: ATTEND Anesthesiology
DX: G89.29 Other chronic pain (principal); M54.2 Cervicalgia; M50.13 Cervical disc disorder with radiculopathy, cervicothoracic region; Z79.82 Long term (current) use of aspirin; Z79.899 Other long term (current) drug therapy; Z79.84 Long term (current) use of oral hypoglycemic drugs; Z79.891 Long term (current) use of opiate analgesic
CPT/HCPCS: 62321; J1030; Q9967

== ENCOUNTER → 2017-06-10 | Outpatient (REF) | payer OTHER ==
[~2017-06-10] MED LIST changes: -ISOVUE-M 300 61% 15ML VIAL (Q9967) As Ordered ONE; -LIDOCAINE 1% SDV INJ 30 ML VIAL As Ordered ONE; -diazePAM 5 MG TAB As Ordered ONE; -methylPREDNISolone SUSP 40 MG/ML (DEPO-medrol) VIAL (J1030) As Ordered ONE; -oxyCODONE 5MG TAB As Ordered ONE
[2017-06-12 00:06] LABS: Lyme Disease IgG/IgM Antibodie <0.91 ISR (0.00-0.90); Lyme Disease IgM Ab Quantitati <0.80 index (0.00-0.79)
== END ==
LOC: M LAB REF 12:30
PROVIDERS: ATTEND Internal Medicine
DX: M25.50 Pain in unspecified joint (principal)

== ENCOUNTER → 2017-06-11 | Outpatient (CLI) | payer OTHER ==
--- NOTE | 2017-07-05 23:36 | ECWPNPC ---
PATIENT NAME: HAI DAIGLE : 1965 GENDER: MALE VISIT DATE: 06/11/2017 DISCHARGE DATE: 06/11/17 1001 VISIT LOCKED DATE TIME: PHYSICIAN: ELVIN CROWE RESOURCE: ELVIN CROWE REASON FOR APPOINTMENT 1. NECK/BACK PAIN HISTORY OF PRESENT ILLNESS HISTORY OF PRESENT ILLNESS: PAIN THE PATIENT DESCRIBES THE PAIN... FALL RISK SCREENING: SCREENING :NO FALLS IN THE PAST YEAR TODAY'S VISIT: NOTES: S/P CERVICAL EPIDURAL INJECTION ON 05/23/17 . PAIN LEVEL PRIOR WAS 05/19 AND POST 12/20 FOR THE LAST 2 WEEKS. NOTES THE BURNING HAS RESOLVED AND HAS BEEN ABLE TO RETURN TO ROUTINE ACTIVITY. STATES IS ABLE TO SLEEP FAIRLY WELL. . CURRENT MEDICATIONS TAKING PROSCAR 5 MG TABLET 1 TABLET ORALLY ONCE A DAY TAKING LIPITOR 20 MG TABLET 1 TABLET ORALLY ONCE A DAY TAKING ASPIR-81 81 MG TABLET DELAYED RELEASE 1 TABLET ORALLY ONCE A DAY TAKING FLECAINIDE ACETATE 50 MG TABLET 1 TABLET ORALLY EVERY 12 HRS TAKING ZEBETA 5 MG TABLET 1 TABLET ORALLY ONCE A DAY TAKING MULTI FOR HIM TABLET DIRECTED ORALLY TAKING VITAMIN B-12 500 MCG TABLET 1 TABLET ORALLY ONCE A DAY TAKING CITRACAL PLUS 400MG TABLET 2 TABS ORALLY AT BEDTIME TAKING TIZANIDINE HCL 2 MG TABLET 1 TABLET NEEDED ORALLY EVERY 8 HRS TAKING METFORMIN HCL 1000 MG TABLET 1 TABLET WITH MEALS ORALLY TWICE DAILY TAKING MAGNESIUM 250 MG TABLET 1 CAPSULE WITH A MEAL ORALLY ONCE A DAY TAKING PRILOSEC 40 MG CAPSULE DELAYED RELEASE 1 CAPSULE ORALLY ONCE A DAY TAKING VALSARTAN 160 MG TABLET 1 TAB ORALLY ONCE A DAY TAKING MELATONIN 3 MG TABLET ORALLY AT BEDTIME TAKING COLCHICINE 0.6 MG CAPSULE ORALLY DIRECTED TAKING INVOKANA 100 MG TABLET 1 TABLET ORALLY ONCE A DAY TAKING VITAMIN D3 MAXIMUM STRENGTH 5000 UNIT CAPSULE 1 CAPSULE ORALLY DAILY TAKING SOMA 350 MG TABLET 1 TABLET NEEDED ORALLY ONE AT BEDTIME MDD=1 TAKING PERCOCET 5-325 MG TABLET 1 TABLET ORALLY ONCE DAILY PRN FOR PAIN MDD=1 TAKING CYMBALTA 60 MG CAPSULE DELAYED RELEASE PARTICLES 1 CAPSULE ORALLY BEFORE BEDTIME TAKING GABAPENTIN 300 MG TABLET ORALLY AT BEDTIME NOT-TAKING CELEXA 20 MG TABLET 1 TABLET ORALLY ONCE A DAY NOT-TAKING GABAPENTIN 100 MG CAPSULE ORALLY DAILY, NOTES: UNKNOWN NOT-TAKING AMOXICILLIN 500 MG CAPSULE 1 CAPSULE ORALLY EVERY 8 HRS, NOTES: 12/11/16 0630 NOT-TAKING VITAMIN D 1000 UNIT TABLET 1 TABLET ORALLY ONCE A DAY, NOTES: 0500 PAST MEDICAL HISTORY DIABETES MIGRAINES PAF HTN GERD HIGH CHOLESTEROL GUILLAIN BARRE ALLERGIES N.K.D.A. REVIEW OF SYSTEMS REVIEWED BY: PROVIDER: ELVIN RESENDIZ . CONSTITUTIONAL: ANY CHANGE IN YOUR MEDICAL CONDITION? NO . CHILLS NO . FEVER NO . INFECTION: DO YOU HAVE NEW INFECTIONS? NO . DO YOU HAVE HISTORY OF MRSA? NO . MUSCULOSKELETAL: ANY NEW PATTERNS OF PAIN OR NUMBNESS? NO . GASTROENTEROLOGY: ANY NEW CHANGE IN BOWEL CONTROL? NO . GENITOURINARY: ANY NEW CHANGE IN BLADDER CONTROL? NO . IS THERE A CHANCE YOU COULD BE ? NO . HEMATOLOGY/LYMPH: DO YOU TAKE ANY BLOOD THINNERS? (FOR EXAMPLE- COUMADIN, PLAVIX, AGGRENOX, PLATEL, PRADAXA, OR XARELTO) NO . WHEN WAS YOUR LAST DOSE? DATE: TIME: . NEUROLOGY: HAVE YOU FALLEN IN THE PAST 6 MONTHS? NO . ANY NEW EXTREMITY NUMBNESS OR WEAKNESS? NO . CARDIOLOGY: DO YOU HAVE A PACEMAKER OR DEFIBRILLATOR? NO . RESPIRATORY: HAVE YOU BEEN SICK IN THE PAST WEEK? NO . FEVER NO . FLU LIKE SYMPTOMS? NO . COUGH NO . INTEGUMENTARY: DO YOU HAVE ANY RASHES OR OPEN SORES? NO . ALLERGIC/IMMUNO: ARE YOU ALLERGIC TO SHELLFISH OR IV DYE? NO . ANY NEW ALLERGIES? NO . PSYCHIATRIC: DO YOU HAVE THOUGHTS OF HURTING YOURSELF OR SOMEONE ELSE? NO . ARE YOU ABUSED, NEGLECTED, OR IN AN UNSAFE ENVIRONMENT? NO . ENDOCRINOLOGY: ARE YOU DIABETIC? YES . OTHER: DO YOU NEED ANY PRESCRIPTIONS? YES . IF YES, PLEASE LIST: SOMA . ANY NEW PROBLEMS WITH YOUR MEDICATIONS? NO . WHEN DID YOU LAST EAT? ____ . WHEN DID YOU LAST DRINK? ____ . WHAT DID YOU LAST DRINK? ____ . NAME OF PERSON DRIVING YOU HOME? ____ . DO YOU HAVE ANY OTHER QUESTIONS OR CONCERNS NO . VITAL SIGNS WT 195.0 LBS, HT 70 IN, BMI 27.98 INDEX, BP 152/96 MM HG, HR 81 /MIN, RR 16 /MIN, TEMP 98.0 F, OXYGEN SAT % 98%, NA INITIALS [id number], REVIEWED BY: NL. EXAMINATION GENERAL EXAMINATION: PSYCHALERT , ORIENTED X 3 , APPROPRIATE MOOD AND AFFECT , TALKATIVE. LUNGS:CLEAR TO AUSCULTATION BILATERALLY. HEART:HEART RATE REGULAR. MUSCULOSKELETAL: FEW TRIGGER POINTS: AND TIGHT FIBROUS BANDS OVER THE LUMBOSACRAL AXIS.. , . RISES EASILY TO A STANDING POSITION. POSTURE UPRIGHT. GAIT WIDEBASED, ANTALGIC. . ASSESSMENTS OTHER CERVICAL DISC DISPLACEMENT, MID-CERVICAL REGION, UNSPECIFIED LEVEL - M50.220 (PRIMARY) CHRONIC PRESCRIPTION OPIATE USE - Z79.899 MYALGIA - M79.1 TREATMENT OTHER CERVICAL DISC DISPLACEMENT, MID-CERVICAL REGION, UNSPECIFIED LEVEL REFILL SOMA TABLET, 350 MG, 1 TABLET NEEDED, ORALLY, ONE AT BEDTIME MDD=1, 30 DAY(S), 30, REFILLS 1 NOTES: WALK, EXERCISE AND STRETCH DAILYCHECK BLOOD SUGARS TWICE A DAY FOR ONE WEEK - SHOW TO [place] UP WITH DR FREITAS IF NEEDED. PROCEDURE CODES FA211 ESTABILISHED PATIENT [facility] FACILITY CHARGE DISPOSITION & COMMUNICATION FOLLOW UP 2-3 MONTHS (REASON: NECK/BACK PAIN) ELECTRONICALLY SIGNED BY MIRANDA NAVARRETE ON 07/05/2017 AT 02:19 PM EDT DISCLAIMER : THIS IS A VISIT SUMMARY EXTRACTED FROM THE [employer] CHART. IT IS NOT A COPY OF THE [employer] PROGRESS NOTE. TERESA
== END ==
LOC: M PAIN 09:00
PROVIDERS: ATTEND Nurse Practitioner Family
DX: M50.220 Other cervical disc displacement, mid-cervical region, unspecified level (principal); Z79.899 Other long term (current) drug therapy; M79.1 Myalgia; Z79.82 Long term (current) use of aspirin; Z79.84 Long term (current) use of oral hypoglycemic drugs; Z79.891 Long term (current) use of opiate analgesic

== ENCOUNTER → 2017-06-23 | Outpatient (REF) | payer OTHER ==
[2017-06-26 00:06] LABS: Lyme Disease IgG/IgM Antibodie <0.91 ISR (0.00-0.90); Lyme Disease IgM Ab Quantitati <0.80 index (0.00-0.79)
== END ==
LOC: M LAB REF 17:54
PROVIDERS: ATTEND Internal Medicine
DX: M79.1 Myalgia (principal)

== ENCOUNTER 2017-07-09 16:06 | Emergency (ER) | payer OTHER ==
[~2017-07-09] VITALS: Ht 177.8 cm; Wt 88.6 kg
[~2017-07-09 16:06] MED LIST changes: -AMLO2.5T; -ASPI81TA85 PO; -IBUP-1022 PO; -MAGN1TAB25 PO; -POTA75TA PO; -VOLT1GEL15 TD
[2017-07-09 16:07] VITALS: BP 155/93
[2017-07-09] MEDS ORDERED: ASPI81TA85 PO (16:28)
[2017-07-09] MEDS ORDERED: IBUP-1022 PO (17:05)
--- NOTE | 2017-07-09 17:39 | REP ---
LEFT FINGERS THREE VIEWS: HISTORY: Saw injury. There is no acute fracture or dislocation. The joint spaces are normal in appearance. IMPRESSION: There is no acute fracture or dislocation. Signed by Ralph Bernstein MD 07/09/2017 05:55 P
== END 2017-07-09 17:16 | disposition home or self-care (01) ==
LOC: M ED 16:06
DX: S63.602A Unspecified sprain of left thumb, initial encounter (principal); I25.10 Atherosclerotic heart disease of native coronary artery without angina pectoris; E11.9 Type 2 diabetes mellitus without complications; W29.3XXA Contact with powered garden and outdoor hand tools and machinery, initial encounter; Y92.89 Other specified places as the place of occurrence of the external cause; Y93.89 Activity, other specified; Y99.9 Unspecified external cause status

== ENCOUNTER 2017-07-26 13:13 | Emergency (ER) | payer OTHER ==
[~2017-07-26] VITALS: Ht 180.3 cm; Wt 84.1 kg
[~2017-07-26 13:13] MED LIST changes: +ASPI81TA85 PO; +IBUP-1022 PO
[2017-07-26] MEDS ORDERED: AMLO2.5T (13:37)
[2017-07-26] MEDS ORDERED: MAGN1TAB25 PO (13:37)
[2017-07-26] MEDS ORDERED: POTA75TA PO (13:37)
[2017-07-26] MEDS ORDERED: PERCOCET 5MG/325MG TAB As Ordered ONE (14:56)
[2017-07-26] MEDS ORDERED: PERCOCET 5MG/325MG TAB PO ONE ×2 (15:00→20:15)
--- NOTE | 2017-07-26 15:29 | REP ---
Clinical: First digit swelling. Technique: AP and lateral views of the left hand. Findings: Degenerative changes at the wrist including the first and second carpometacarpal joints. No acute fracture dislocation. Impression: Degenerative changes. No obvious acute fracture or dislocation. Signed by Giovanni Key MD 07/26/2017 03:21 P
[2017-07-26] MEDS ORDERED: MORPHINE 4 MG/ML 1ML SYRINGE IV ONE (16:45)
[2017-07-26 16:57] LABS: BASO % 0.3 % (0.0-1.0); EOS # 0.1 K/mm3 (0.0-0.50); EOS % 2.3 % (0.0-3.0); LARGE UNSTAINED CELL # 0.1 K/mm3 (0.0-0.4); LARGE UNSTAINED CELL % 2.4 % (0.0-4.0); LYMPH # 1.1 K/mm3 (1.5-4.5); LYMPH % 24.3 % (24.0-44.0); MEAN CORPUSCULAR HGB CONC 35.3 g/dl (32.0-36.5); MONO # 0.3 K/mm3 (0.0-0.8); MONO % 5.7 % (0.0-5.0); PLATELET COUNT, AUTOMATED 210 k/mm3 (150-450); RED CELL DISTRIBUTION WIDTH 12.3 % (11.5-14.5); WHITE BLOOD COUNT 4.6 K/mm3 (4.0-10.0)
[2017-07-26 17:14] LABS: ERYTHROCYTE SEDIMENTATION RATE 7 mm/hr (0-20)
[2017-07-26 17:17] LABS: ANION GAP 5 MEQ/L (8-16); BLOOD UREA NITROGEN 12 MG/DL (7-18); CALCIUM LEVEL 8.3 MG/DL (8.5-10.1); CARBON DIOXIDE LEVEL 31 MEQ/L (21-32); CHLORIDE LEVEL 106 MEQ/L (98-107); CREATININE FOR GFR 0.62 MG/DL (0.70-1.30); GLOMERULAR FILTRATION RATE > 60.0 (>56); GLUCOSE, FASTING 149 MG/DL (70-105); POTASSIUM SERUM 3.6 MEQ/L (3.5-5.1); SODIUM LEVEL 142 MEQ/L (136-145)
--- NOTE | 2017-07-26 21:00 | REPUSA ---
HISTORY: THUMB PAIN. PT STATES INJURED THUMB 4 WEEKS AGO NOW HAS INCREASE PRESSURE, SWOLLEN, COLD T O THE TOUCH, AND RED SPOTS TECHNIQUE: Multisequence, multiplanar MRI imaging of left hand with and without contrast. 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 The radial and ulnar collat eral ligaments at the first interphalangeal joint space are intact without evidence of tear. There i s no evidence of fracture in the distal or proximal phalanges of the thumb. There is also degenerati ve arthritis at the first metacarpophalangeal joint space. The flexor pollicis longus tendon is intact without full thickness rupture, but there is prominent pe ritendinous fluid seen predominantly at the distal margin of the first proximal phalanx and there is a slight bilobed contour of the tendon seen in the axial sequence , series 801, image 31, suggesting possible split tear of the tendon with surrounding tenosynovitis. This is also seen on the coronal s equence, series 901, image 20. The volar plates at the interphalangeal joints , sesamoid bones, ulnar collateral ligament, radial co llateral ligament, and adductor pollicis longus tendon at the first metacarpophalangeal joint space r egion are intact with no evidence of Stener lesion. The extensor pollicis longus, extensor pollicis brevis, and abductor pollicis tendon are intact. The remainder of the MRI examination of the left hand is normal with no other bony lesion, joint spac e abnormality, tendon abnormality, ligamentous abnormality, soft tissue mass or abnormal fluid collec tions seen. IMPRESSION: 1. There is extensive fluid around the flexor pollicis longus tendon at the level of the distal margin of the first proximal phalanx, consistent with tenosynovitis, and there is a bilobed c ontour across the axial plane of the flexor pollicis longus tendon, raising question of tendon split, without complete tendon rupture seen. 2. 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 2. The adductor pollicis tendon, abductor pollicis tendon, extensor pollicis longus tendon, and ex tensor pollicis brevis tendon are intact. 3. The ulnar collateral ligament and radial collateral ligament, volar plate, and sesamoids at the f irst metacarpophalangeal joint space are intact with no evidence of Stener lesion. No bone fracture or bone bruise is seen. 4. The remainder of the MRI examination of the left hand is normal.
[2017-07-26] MEDS ORDERED: VOLT1GEL15 TD (21:52)
[2017-07-26] MEDS ORDERED: DICLOFENAC EPOLAMINE 1.3 % PATCH TOP ONE (22:00)
[2017-07-26 22:05] VITALS: BP 182/95
== END 2017-07-26 22:32 | disposition home or self-care (01) ==
LOC: M ED 13:13
DX: M65.842 Other synovitis and tenosynovitis, left hand (principal); I25.10 Atherosclerotic heart disease of native coronary artery without angina pectoris; I50.9 Heart failure, unspecified; E11.9 Type 2 diabetes mellitus without complications; I11.9 Hypertensive heart disease without heart failure; G89.29 Other chronic pain; M54.9 Dorsalgia, unspecified; Z98.890 Other specified postprocedural states
CPT/HCPCS: 73120; 73220; 80048; 85025; 85652; 86140; 96374; 99283; A9576

== ENCOUNTER → 2017-09-04 | Outpatient (CLI) | payer OTHER ==
[~2017-09-04] MED LIST changes: +AMLO2.5T; +MAGN1TAB25 PO; +POTA75TA PO; +VOLT1GEL15 TD
--- NOTE | 2017-09-05 00:50 | ECWPNPC ---
PATIENT NAME: HAI DAIGLE : 1965 GENDER: MALE VISIT DATE: 09/04/2017 DISCHARGE DATE: 09/04/17932 VISIT LOCKED DATE TIME: PHYSICIAN: ELVIN CROWE RESOURCE: ELVIN CROWE HISTORY OF PRESENT ILLNESS HISTORY OF PRESENT ILLNESS: PAIN THE PATIENT DESCRIBES THE PAIN... FALL RISK SCREENING: SCREENING :NO FALLS IN THE PAST YEAR TODAY'S VISIT: NOTES: RATES PAIN LEVEL TODAY 3/10. IS NOTING INTENSE HEADACHE IN BACK OF HEAD. IS STILL NOTING PAIN IN RIGHT HAND WITH SWELLING AND DUSKY COLORATION. IS SEEING DR MONTE FOR THIS HE IS VERY FRUSTRATED WITH. . IS NOTING PAIN AT THE BASE OF THE HEAD AND LOW BACK. CURRENT MEDICATIONS TAKING PROSCAR 5 MG TABLET 1 TABLET ORALLY ONCE A DAY TAKING ASPIR-81 81 MG TABLET DELAYED RELEASE 1 TABLET ORALLY ONCE A DAY TAKING FLECAINIDE ACETATE 50 MG TABLET 1 TABLET ORALLY EVERY 12 HRS TAKING ZEBETA 5 MG TABLET 1 TABLET ORALLY ONCE A DAY TAKING VITAMIN B-12 500 MCG TABLET 1 TABLET ORALLY ONCE A DAY TAKING CITRACAL PLUS 400MG TABLET 2 TABS ORALLY AT BEDTIME TAKING TIZANIDINE HCL 2 MG TABLET 1 TABLET NEEDED ORALLY EVERY 8 HRS TAKING METFORMIN HCL 1000 MG TABLET 1 TABLET WITH MEALS ORALLY TWICE DAILY TAKING MAGNESIUM 200 MG TABLET 1 CAPSULE WITH A MEAL ORALLY ONCE A DAY, TAKES 400 MG TAKING PRILOSEC 40 MG CAPSULE DELAYED RELEASE 1 CAPSULE ORALLY ONCE A DAY TAKING VALSARTAN 160 MG TABLET 1 TAB ORALLY ONCE A DAY TAKING MELATONIN 5 MG TABLET ORALLY AT BEDTIME TAKING MULTI FOR HIM TABLET 2 TABS ORALLY DAILY TAKING COLCHICINE 0.6 MG CAPSULE ORALLY DIRECTED TAKING INVOKANA 100 MG TABLET 1 TABLET ORALLY ONCE A DAY TAKING VITAMIN D3 MAXIMUM STRENGTH 5000 UNIT CAPSULE 1 CAPSULE ORALLY DAILY TAKING CYMBALTA 60 MG CAPSULE DELAYED RELEASE PARTICLES 1 CAPSULE ORALLY BEFORE BEDTIME TAKING PERCOCET 5-325 MG TABLET 1 TABLET ORALLY ONCE DAILY PRN FOR PAIN MDD=1 TAKING SOMA 350 MG TABLET 1 TABLET NEEDED ORALLY ONE AT BEDTIME MDD=1 TAKING AMLODIPINE BESYLATE 2.5 MG TABLET 1 TABLET ORALLY ONCE A DAY TAKING POTASSIUM BICARB & CHLORIDE 20 MEQ PACKET 1 TAB ORALLY DAILY NOT-TAKING LIPITOR 20 MG TABLET 1 TABLET ORALLY ONCE A DAY NOT-TAKING GABAPENTIN 300 MG TABLET ORALLY AT BEDTIME NOT-TAKING CELEXA 20 MG TABLET 1 TABLET ORALLY ONCE A DAY NOT-TAKING GABAPENTIN 100 MG CAPSULE ORALLY DAILY, NOTES: UNKNOWN NOT-TAKING AMOXICILLIN 500 MG CAPSULE 1 CAPSULE ORALLY EVERY 8 HRS, NOTES: 12/11/16 0630 NOT-TAKING VITAMIN D 1000 UNIT TABLET 1 TABLET ORALLY ONCE A DAY, NOTES: 0500 MEDICATION LIST REVIEWED AND RECONCILED WITH THE PATIENT PAST MEDICAL HISTORY DIABETES MIGRAINES PAF HTN GERD HIGH CHOLESTEROL GUILLAIN BARRE ALLERGIES N.K.D.A. SOCIAL HISTORY GENERAL: TOBACCO USE ARE YOU A:NONSMOKER ALCOHOL SCREENING POINTS1 INTERPRETATIONNEGATIVE RECREATIONAL DRUG USE DRUG USE?NO JUDAISM [id number] OTHER LANGUAGE LANGUAGES SPOKEN:ECUADOREAN LEARNING BARRIERS / SPECIAL NEEDS BARRIERS TO LEARNING?NO HEARING IMPAIRED?NO VISION IMPAIRED?YES :CORRECTIVE LENSES COGNITIVELY IMPAIRED?NO READINESS TO LEARN?YES LEARNING PREFERENCES?NO LEARNING CAPABILITIES PRESENT?YES EMOTIONAL BARRIERS?NO SPECIAL DEVICES?NO BUNCH MAKER HAND NEEDED?NO PAIN CLINIC PFS, CLERGY, PUBLIC HEALTH REFERRALS PFS REFERRAL NEEDED?NO CLERGY REFERRAL NEEDED?NO PUBLIC HEALTH REFERRAL NEEDED?NO WAS THE PROVIDER NOTIFIED OF ANY PERTINENT INFO?NO HAS THE PATIENT BEEN EDUCATED REGARDING HIS/HER PLAN OF CARE?YES HAS THE PATIENT BEEN EDUCATED REGARDING PAIN, THE RISK FOR PAIN, THE IMPORTANCE OF EFFECTIVE PAIN MANAGEMENT, AND THE PAIN ASSESSMENT PROCESS?YES PATIENT: ____, ____. REVIEW OF SYSTEMS REVIEWED BY: PROVIDER: ELVIN RESENDIZ . CONSTITUTIONAL: ANY CHANGE IN YOUR MEDICAL CONDITION? NO . CHILLS NO . FEVER NO . INFECTION: DO YOU HAVE NEW INFECTIONS? NO . DO YOU HAVE HISTORY OF MRSA? NO . MUSCULOSKELETAL: ANY NEW PATTERNS OF PAIN OR NUMBNESS? NO . GASTROENTEROLOGY: ANY NEW CHANGE IN BOWEL CONTROL? NO . GENITOURINARY: ANY NEW CHANGE IN BLADDER CONTROL? NO . IS THERE A CHANCE YOU COULD BE ? NO . HEMATOLOGY/LYMPH: DO YOU TAKE ANY BLOOD THINNERS? (FOR EXAMPLE- COUMADIN, PLAVIX, AGGRENOX, PLATEL, PRADAXA, OR XARELTO) NO . WHEN WAS YOUR LAST DOSE? DATE: TIME: . NEUROLOGY: HAVE YOU FALLEN IN THE PAST 6 MONTHS? NO . ANY NEW EXTREMITY NUMBNESS OR WEAKNESS? NO . CARDIOLOGY: DO YOU HAVE A PACEMAKER OR DEFIBRILLATOR? NO . RESPIRATORY: HAVE YOU BEEN SICK IN THE PAST WEEK? NO . FEVER NO . FLU LIKE SYMPTOMS? NO . COUGH NO . INTEGUMENTARY: DO YOU HAVE ANY RASHES OR OPEN SORES? NO . ALLERGIC/IMMUNO: ARE YOU ALLERGIC TO SHELLFISH OR IV DYE? NO . ANY NEW ALLERGIES? NO . PSYCHIATRIC: DO YOU HAVE THOUGHTS OF HURTING YOURSELF OR SOMEONE ELSE? NO . ARE YOU ABUSED, NEGLECTED, OR IN AN UNSAFE ENVIRONMENT? NO . ENDOCRINOLOGY: ARE YOU DIABETIC? YES . OTHER: DO YOU NEED ANY PRESCRIPTIONS? NO . IF YES, PLEASE LIST: ____ . ANY NEW PROBLEMS WITH YOUR MEDICATIONS? NO . WHEN DID YOU LAST EAT? ____ . WHEN DID YOU LAST DRINK? ____ . WHAT DID YOU LAST DRINK? ____ . NAME OF PERSON DRIVING YOU HOME? ____ . DO YOU HAVE ANY OTHER QUESTIONS OR CONCERNS NO . PSYCHOLOGY: HIGH STRESS LEVEL RELATED TOO HAND ISSUES, SLEEP CAN BE DISRUPTED . VITAL SIGNS WT 197.8 LBS, HT 70 IN, BMI 28.38 INDEX, BP 150/110 MANUAL, REPEAT BP 178/92 MANUAL, HR 84 /MIN, RR 18 /MIN, TEMP 97.7 F, OXYGEN SAT % 95%, SAFE IN ENV? (Y/N) YES, REVIEWED BY: ABIEL. EXAMINATION GENERAL EXAMINATION: PSYCHALERT , ORIENTED X 3 ,IRRITABLE , TALKATIVE. LUNGS:CLEAR TO AUSCULTATION BILATERALLY. HEART:HEART RATE REGULAR. MUSCULOSKELETAL:POINT TENDERNESS OVER C7 PROMINENCE AND OVER CERVICAL PARASPINOUS MUSCLES. DECREASED ROM WITH NECK FLEXION/EXTENSION. , TRIGGER POINTS AND TIGHT FIBROUS BANDS OVER TRAPEZIUS MUSCLES BILATERALLY.. 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 KEEP TRACK OF BLOOD PRESSURE EVERY DAY. CALL PRIMARY PROVIDER ABOUT BLOOD PRESSURE. PREVENTIVE MEDICINE PAIN CLINIC TEACHING: PROCEDURE TEACHING PRE-PROCEDURE TEACHING DONE. QUESTIONS ANSWERED AND PATIENT VERBALIZES UNDERSTANDING.. PROCEDURE CODES FA211 ESTABILISHED PATIENT [facility] CHARGE DISPOSITION & COMMUNICATION FOLLOW UP AFTER INJECTION (REASON: NECK/ UPPER BACK) ELECTRONICALLY SIGNED BY MIRANDA NAVARRETE ON 09/04/2017 AT 11:31 AM EDT DISCLAIMER : THIS IS A VISIT SUMMARY EXTRACTED FROM THE [employer] CHART. IT IS NOT A COPY OF THE [employer] PROGRESS NOTE. TERESA
== END ==
LOC: M PAIN 08:30
PROVIDERS: ATTEND Nurse Practitioner Family
DX: G89.29 Other chronic pain (principal); M51.24 Other intervertebral disc displacement, thoracic region; M50.220 Other cervical disc displacement, mid-cervical region, unspecified level; E11.9 Type 2 diabetes mellitus without complications; G43.909 Migraine, unspecified, not intractable, without status migrainosus; I10 Essential (primary) hypertension; K21.9 Gastro-esophageal reflux disease without esophagitis; E78.00 Pure hypercholesterolemia, unspecified; G61.0 Guillain-Barre syndrome; Z79.82 Long term (current) use of aspirin; Z79.84 Long term (current) use of oral hypoglycemic drugs; Z79.891 Long term (current) use of opiate analgesic; Z79.899 Other long term (current) drug therapy

== ENCOUNTER → 2017-09-25 | Outpatient (CLI) | payer OTHER ==
[~2017-09-25] MED LIST changes: +ISOVUE-M 300 61% 15ML VIAL (Q9967) As Ordered ONE; +LIDOCAINE 1% SDV INJ 30 ML VIAL As Ordered ONE; +diazePAM 5 MG TAB As Ordered ONE; +methylPREDNISolone SUSP 40 MG/ML (DEPO-medrol) VIAL (J1030) As Ordered ONE
--- NOTE | 2017-09-25 16:19 | REP ---
FLUOROSCOPIC GUIDED SPINAL INJECTION: The films were reviewed with Dr. Buck. The patient has a history of neck pain. The portable C-ARM was provided in the OR by Dr. Barrientos for fluoroscopic guidance. 3 intraoperative last image hold spot films were obtained for needle placement verification for cervical epidural injection. The films are on the PACS system and are available for review. 14 seconds of fluoroscopic time was utilized for this procedure. Reviewed by BEN Jain 09/26/2017 03:47 PEdited and Signed by Tom Buck MD 09/26/2017 03:54 P
--- NOTE | 2017-10-07 01:35 | ECWPNPC ---
PATIENT NAME: HAI DAIGLE : 1965 GENDER: MALE VISIT DATE: 09/25/2017 DISCHARGE DATE: 09/25/17 1524 VISIT LOCKED DATE TIME: PHYSICIAN: BONY ANTOINE RESOURCE: BONY ANTOINE REASON FOR APPOINTMENT 1. CERVICAL EPIDURAL RIGHT HISTORY OF PRESENT ILLNESS HISTORY OF PRESENT ILLNESS: PAIN THE PATIENT DESCRIBES THE PAIN... FALL RISK SCREENING: SCREENING :NO FALLS IN THE PAST YEAR CURRENT MEDICATIONS TAKING PROSCAR 5 MG TABLET 1 TABLET ORALLY ONCE A DAY, NOTES: 09-25-17699 TAKING ASPIR-81 81 MG TABLET DELAYED RELEASE 1 TABLET ORALLY ONCE A DAY, NOTES: [id number] TAKING FLECAINIDE ACETATE 50 MG TABLET 1 TABLET ORALLY EVERY 12 HRS, NOTES: 09-25-17699 TAKING ZEBETA 5 MG TABLET 1 TABLET ORALLY ONCE A DAY, NOTES: [id number] TAKING VITAMIN B-12 500 MCG TABLET 1 TABLET ORALLY ONCE A DAY, NOTES: 09-25-17699 TAKING CITRACAL PLUS 400MG TABLET 2 TABS ORALLY AT BEDTIME, NOTES: [id number] TAKING TIZANIDINE HCL 2 MG TABLET 1 TABLET NEEDED ORALLY EVERY 8 HRS, NOTES: 09-24-172099 TAKING METFORMIN HCL 1000 MG TABLET 1 TABLET WITH MEALS ORALLY TWICE DAILY, NOTES: 09-24-17899 TAKING MAGNESIUM 200 MG TABLET 1 CAPSULE WITH A MEAL ORALLY ONCE A DAY, TAKES 400 MG, NOTES: 09-25-17699 TAKING PRILOSEC 40 MG CAPSULE DELAYED RELEASE 1 CAPSULE ORALLY ONCE A DAY, NOTES: [id number] TAKING VALSARTAN 160 MG TABLET 1 TAB ORALLY ONCE A DAY, NOTES: 09-24-172099 TAKING MELATONIN 5 MG TABLET ORALLY AT BEDTIME, NOTES: NOT LATELY TAKING MULTI FOR HIM TABLET 2 TABS ORALLY DAILY, NOTES: 599 TAKING COLCHICINE 0.6 MG CAPSULE ORALLY DIRECTED, NOTES: NOT LATELY TAKING INVOKANA 100 MG TABLET 1 TABLET ORALLY ONCE A DAY, NOTES: 09-24-17 TAKING VITAMIN D3 MAXIMUM STRENGTH 5000 UNIT CAPSULE 1 CAPSULE ORALLY DAILY, NOTES: 09-25-17699 TAKING CYMBALTA 60 MG CAPSULE DELAYED RELEASE PARTICLES 1 CAPSULE ORALLY BEFORE BEDTIME, NOTES: [id number] TAKING PERCOCET 5-325 MG TABLET 1 TABLET ORALLY ONCE DAILY PRN FOR PAIN MDD=1, NOTES: 09-24-17 0800 TAKING SOMA 350 MG TABLET 1 TABLET NEEDED ORALLY ONE AT BEDTIME MDD=1, NOTES: 09-24-17 2100 TAKING AMLODIPINE BESYLATE 2.5 MG TABLET 1 TABLET ORALLY ONCE A DAY, NOTES: 09-25-17 0700 TAKING POTASSIUM BICARB & CHLORIDE 20 MEQ PACKET 1 TAB ORALLY DAILY, NOTES: 09-25 0700 UNKNOWN LIPITOR 20 MG TABLET 1 TABLET ORALLY ONCE A DAY UNKNOWN GABAPENTIN 300 MG TABLET ORALLY AT BEDTIME UNKNOWN CELEXA 20 MG TABLET 1 TABLET ORALLY ONCE A DAY UNKNOWN GABAPENTIN 100 MG CAPSULE ORALLY DAILY, NOTES: UNKNOWN UNKNOWN AMOXICILLIN 500 MG CAPSULE 1 CAPSULE ORALLY EVERY 8 HRS, NOTES: 12/11/16 0630 UNKNOWN VITAMIN D 1000 UNIT TABLET 1 TABLET ORALLY ONCE A DAY, NOTES: 0500 MEDICATION LIST REVIEWED AND RECONCILED WITH THE PATIENT PAST MEDICAL HISTORY DIABETES MIGRAINES PAF HTN GERD HIGH CHOLESTEROL GUILLAIN BARRE ALLERGIES N.K.D.A. REVIEW OF SYSTEMS REVIEWED BY: PROVIDER: . CONSTITUTIONAL: ANY CHANGE IN YOUR MEDICAL CONDITION? NO . CHILLS NO . FEVER NO . INFECTION: DO YOU HAVE NEW INFECTIONS? NO . DO YOU HAVE HISTORY OF MRSA? NO . MUSCULOSKELETAL: ANY NEW PATTERNS OF PAIN OR NUMBNESS? NO . GASTROENTEROLOGY: ANY NEW CHANGE IN BOWEL CONTROL? NO . GENITOURINARY: ANY NEW CHANGE IN BLADDER CONTROL? NO . IS THERE A CHANCE YOU COULD BE ? NO . HEMATOLOGY/LYMPH: DO YOU TAKE ANY BLOOD THINNERS? (FOR EXAMPLE- COUMADIN, PLAVIX, AGGRENOX, PLATEL, PRADAXA, OR XARELTO) NO . WHEN WAS YOUR LAST DOSE? DATE: TIME: . NEUROLOGY: HAVE YOU FALLEN IN THE PAST 6 MONTHS? NO . ANY NEW EXTREMITY NUMBNESS OR WEAKNESS? NO . CARDIOLOGY: DO YOU HAVE A PACEMAKER OR DEFIBRILLATOR? NO . RESPIRATORY: HAVE YOU BEEN SICK IN THE PAST WEEK? NO . FEVER NO . FLU LIKE SYMPTOMS? NO . COUGH NO . INTEGUMENTARY: DO YOU HAVE ANY RASHES OR OPEN SORES? NO . ALLERGIC/IMMUNO: ARE YOU ALLERGIC TO SHELLFISH OR IV DYE? NO . ANY NEW ALLERGIES? NO . PSYCHIATRIC: DO YOU HAVE THOUGHTS OF HURTING YOURSELF OR SOMEONE ELSE? NO . ARE YOU ABUSED, NEGLECTED, OR IN AN UNSAFE ENVIRONMENT? NO . ENDOCRINOLOGY: ARE YOU DIABETIC? YES . OTHER: DO YOU NEED ANY PRESCRIPTIONS? NO . IF YES, PLEASE LIST: ____ . ANY NEW PROBLEMS WITH YOUR MEDICATIONS? NO . WHEN DID YOU LAST EAT? ____2 AM THIS MORNING . WHEN DID YOU LAST DRINK? ____ . WHAT DID YOU LAST DRINK? ____730 AM THIS MORNING . NAME OF PERSON DRIVING YOU HOME? ____MARY . DO YOU HAVE ANY OTHER QUESTIONS OR CONCERNS NO . VITAL SIGNS WT 193.0 LBS, HT 70 IN, BMI 27.69 INDEX, BP 160/83 MM HG, HR 80 /MIN, RR 18 /MIN, TEMP 97.6 F, OXYGEN SAT % 96%, SAFE IN ENV? (Y/N) YES, NA INITIALS TL 1303, REVIEWED BY: KG. ASSESSMENTS CERVICAL DISC DISORDER WITH RADICULOPATHY OF CERVICOTHORACIC REGION - M50.13 (PRIMARY) PROCEDURES PN CERVICAL EPIDURAL PRE PROCEDURE DIAGNOSIS CERVICAL DISC DISORDER WITH RADICULOPATHY POST PROCEDURE DIAGNOSIS CERVICAL DISC DISORDER WITH RADICULOPATHY PROCEDURE CERVICAL EPIDURAL STEROID INJECTION UNDER FLUOROSCOPIC GUIDANCE SURGEON DR. BONY ANTOINE MOBILITY SCOOTER REPAIRER NONE ANESTHESIA LOCAL PRE PROCEDURE NOTE THE PATIENT HAS A HISTORY OF CHRONIC CERVICAL PAIN. I EVALUATE THE PATIENT AND REVIEWED THE CHART. I WENT OVER THE RISKS, ALTERNATIVES, AND BENEFITS ASSOCIATED WITH THIS PROCEDURE. THE PATIENT WOULD LIKE TO PROCEED AND GIVE CONSENT TO PERFORMED THE PROCEDURE. THE PATIENT DENIES UNEXPLAINABLE WEIGHT LOSS, FEVER, CHILLS, OR NEW CHANGES IN URINARY OR BOWEL CONTROL DESCRIPTION OF PROCEDURE THE PATIENT WAS BROUGHT TO THE PROCEDURE ROOM AND PLACED IN THE PRONE POSITION. THE CERVICOTHORACIC AREA WAS CLEANED WITH BETADINE SOLUTION AND DRAPED ASEPTICALLY. THE PROCEDURE WAS DONE UNDER STERILE CONDITIONS. I CHECKED LATERALITY AND THE LEVEL WHERE THE PROCEDURE WAS GOING TO BE PERFORMED WITH THE PATIENT AND THE SUPPORTING STAFF AT THE MOMENT OF THE TIME OUT IN THE PROCEDURE ROOM. UNDER FLUOROSCOPIC GUIDANCE, THE TARGET WAS SELECTED AT THE INTERLAMINAR LEVEL OF C7-T1. LIDOCAINE WAS USED TO NUMB THE SKIN AND THE SUBCUTANEOUS TISSUE BELOW IT. EPIDURAL TUOHY NEEDLE 17-GAUGE WAS ADVANCED UNDER FLUOROSCOPIC GUIDANCE AND FOLLOWING PATIENT FEEDBACK UNTIL THE EPIDURAL SPACE WAS REACHED 6 CM DEEP INTO THE SKIN BY THE LOSS OF RESISTANCE TECHNIQUE. ISOVUE M DYE 30%, 0.25 ML, WAS INJECTED SHOWING ADEQUATE SPREAD OF THE DYE. THEN, A SOLUTION OF 3 ML OF NORMAL SALINE WITH DEPO-MEDROL 60 MG WAS INJECTED SLOWLY FOLLOWING PATIENT FEEDBACK. THERE WAS NO EVIDENCE OF BLOOD, PARESTHESIA OR CEREBROSPINAL FLUID DURING THE PROCEDURE. THE PATIENT WAS SENT TO THE RECOVERY ROOM. THE PATIENT WAS MOVING THE EXTREMITIES AND DOING WELL. THERE WAS NO COMPLICATION DURING THE PROCEDURE. FLUOROSCOPY TIME WAS 14 SECONDS POST PROCEDURE NOTE THE PATIENT WILL BE SEEN IN A FOLLOW UP IN THE NEXT FEW WEEKS. INSTRUCTIONS WERE GIVEN, QUESTIONS WERE ANSWERED, AND THE PATIENT EXPRESSED UNDERSTANDING AND AGREES WITH THE PLAN. I, VIC SABA, DOCUMENTED THE ABOVE INFORMATION ACTING A SCRIBE FOR DR. ANTOINE. I HAVE REVIEWED THE ABOVE DOCUMENT, WRITTEN BY VIC SABA SCRIBE AND I VERIFY THAT IT IS ACCURATE DIAGNOSTIC IMAGING [facility] FLUORO GUIDE SPINE INJECTION (PAIN)[id number] PROCEDURE CODES 51376 CERVICAL/THORACIC W/ IMAGING 6045F RADXPS IN END [id number] PXD DISPOSITION & COMMUNICATION FOLLOW UP 3 WEEKS ELECTRONICALLY SIGNED BY BONY ANTOINE MD ON 10/06/2017 AT 02:37 PM EST DISCLAIMER : THIS IS A VISIT SUMMARY EXTRACTED FROM THE [employer] CHART. IT IS NOT A COPY OF THE [employer] PROGRESS NOTE. MTDD
== END ==
LOC: M PAIN 13:15
PROVIDERS: ATTEND Anesthesiology
DX: G89.29 Other chronic pain (principal); M50.13 Cervical disc disorder with radiculopathy, cervicothoracic region; E11.9 Type 2 diabetes mellitus without complications; G43.909 Migraine, unspecified, not intractable, without status migrainosus; I10 Essential (primary) hypertension; G61.0 Guillain-Barre syndrome; Z79.82 Long term (current) use of aspirin; Z79.84 Long term (current) use of oral hypoglycemic drugs; Z79.891 Long term (current) use of opiate analgesic; Z79.899 Other long term (current) drug therapy
CPT/HCPCS: 62321; J1030; Q9967

== ENCOUNTER → 2017-09-29 | Outpatient (CLI) | payer OTHER ==
[~2017-09-29] MED LIST changes: -ISOVUE-M 300 61% 15ML VIAL (Q9967) As Ordered ONE; -LIDOCAINE 1% SDV INJ 30 ML VIAL As Ordered ONE; -diazePAM 5 MG TAB As Ordered ONE; -methylPREDNISolone SUSP 40 MG/ML (DEPO-medrol) VIAL (J1030) As Ordered ONE
--- NOTE | 2017-10-13 | ECWPNPC ---
PATIENT NAME: HAI DAIGLE : 1965 GENDER: MALE VISIT DATE: 09/29/2017 DISCHARGE DATE: 09/29/17 1232 VISIT LOCKED DATE TIME: PHYSICIAN: ELVIN CROWE RESOURCE: ELVIN CROWE REASON FOR APPOINTMENT 1. BACK, POST PROCEDURE HISTORY OF PRESENT ILLNESS HISTORY OF PRESENT ILLNESS: PAIN THE PATIENT DESCRIBES THE PAIN... FALL RISK SCREENING: SCREENING :NO FALLS IN THE PAST YEAR TODAY'S VISIT: NOTES: RATES PAIN TODAY 02/17. LOW ABCK PAIN -05/19 AND LEFT HAND/THUMB 3-08/19. IS S/P C7-T1 EPIDURAL. NOTES TENDERNESS ACROSS THE SHOULDERS AND OVERALL NECK FEELS BETTER. LOW BACK RIGHT SIDE PAIN IS AGAIN RADIATING ACROSS SIDE. . CURRENT MEDICATIONS TAKING PROSCAR 5 MG TABLET 1 TABLET ORALLY ONCE A DAY TAKING ASPIR-81 81 MG TABLET DELAYED RELEASE 1 TABLET ORALLY ONCE A DAY TAKING FLECAINIDE ACETATE 50 MG TABLET 1 TABLET ORALLY EVERY 12 HRS TAKING ZEBETA 5 MG TABLET 1 TABLET ORALLY ONCE A DAY TAKING VITAMIN B-12 500 MCG TABLET 1 TABLET ORALLY ONCE A DAY TAKING CITRACAL PLUS 400MG TABLET 2 TABS ORALLY AT BEDTIME TAKING TIZANIDINE HCL 2 MG TABLET 1 TABLET NEEDED ORALLY EVERY 8 HRS TAKING METFORMIN HCL 1000 MG TABLET 1 TABLET WITH MEALS ORALLY TWICE DAILY TAKING MAGNESIUM 200 MG TABLET 1 CAPSULE WITH A MEAL ORALLY ONCE A DAY, TAKES 400 MG TAKING PRILOSEC 40 MG CAPSULE DELAYED RELEASE 1 CAPSULE ORALLY ONCE A DAY TAKING VALSARTAN 160 MG TABLET 1 TAB ORALLY ONCE A DAY TAKING MELATONIN 5 MG TABLET ORALLY AT BEDTIME TAKING MULTI FOR HIM TABLET 2 TABS ORALLY DAILY TAKING COLCHICINE 0.6 MG CAPSULE ORALLY DIRECTED TAKING INVOKANA 100 MG TABLET 1 TABLET ORALLY ONCE A DAY TAKING VITAMIN D3 MAXIMUM STRENGTH 5000 UNIT CAPSULE 1 CAPSULE ORALLY DAILY TAKING CYMBALTA 60 MG CAPSULE DELAYED RELEASE PARTICLES 1 CAPSULE ORALLY BEFORE BEDTIME TAKING SOMA 350 MG TABLET 1 TABLET NEEDED ORALLY ONE AT BEDTIME MDD=1 TAKING AMLODIPINE BESYLATE 2.5 MG TABLET 1 TABLET ORALLY ONCE A DAY TAKING POTASSIUM BICARB & CHLORIDE 20 MEQ PACKET 1 TAB ORALLY DAILY TAKING PERCOCET 5-325 MG TABLET 1 TABLET ORALLY ONCE DAILY PRN FOR PAIN MDD=1 NOT-TAKING LIPITOR 20 MG TABLET 1 TABLET ORALLY ONCE A DAY NOT-TAKING GABAPENTIN 300 MG TABLET ORALLY AT BEDTIME NOT-TAKING CELEXA 20 MG TABLET 1 TABLET ORALLY ONCE A DAY NOT-TAKING GABAPENTIN 100 MG CAPSULE ORALLY DAILY, NOTES: UNKNOWN NOT-TAKING AMOXICILLIN 500 MG CAPSULE 1 CAPSULE ORALLY EVERY 8 HRS, NOTES: 12/11/16 0630 NOT-TAKING VITAMIN D 1000 UNIT TABLET 1 TABLET ORALLY ONCE A DAY, NOTES: 0500 MEDICATION LIST REVIEWED AND RECONCILED WITH THE PATIENT PAST MEDICAL HISTORY DIABETES MIGRAINES PAF HTN GERD HIGH CHOLESTEROL GUILLAIN BARRE ALLERGIES N.K.D.A. SOCIAL HISTORY GENERAL: TOBACCO USE ARE YOU A:NONSMOKER ALCOHOL SCREENING DID YOU HAVE A DRINK CONTAINING ALCOHOL IN THE PAST YEAR?YES HOW OFTEN DID YOU HAVE A DRINK CONTAINING ALCOHOL IN THE PAST YEAR?MONTHLY OR LESS (1 POINT) HOW MANY DRINKS DID YOU HAVE ON A TYPICAL DAY WHEN YOU WERE DRINKING IN THE PAST YEAR?1 OR 2 (0 POINTS) HOW OFTEN DID YOU HAVE SIX OR MORE DRINKS ON ONE OCCASION IN THE PAST YEAR?NEVER (0 POINTS) POINTS1 INTERPRETATIONNEGATIVE RECREATIONAL DRUG USE DRUG USE?NO PROTESTANT [id number] OTHER LANGUAGE LANGUAGES SPOKEN:[place] R[place] LEARNING BARRIERS / SPECIAL NEEDS CHANGE FROM LAST VISIT?NO BARRIERS TO LEARNING?NO HEARING IMPAIRED?NO VISION IMPAIRED?YES :CORRECTIVE LENSES COGNITIVELY IMPAIRED?NO READINESS TO LEARN?YES LEARNING PREFERENCES?NO LEARNING CAPABILITIES PRESENT?YES EMOTIONAL BARRIERS?NO SPECIAL DEVICES?NO SENIOR PRODUCER NEEDED?NO PAIN CLINIC PFS, CLERGY, PUBLIC HEALTH REFERRALS PFS REFERRAL NEEDED?NO CLERGY REFERRAL NEEDED?NO PUBLIC HEALTH REFERRAL NEEDED?NO WAS THE PROVIDER NOTIFIED OF ANY PERTINENT INFO?NO HAS THE PATIENT BEEN EDUCATED REGARDING HIS/HER PLAN OF CARE?YES HAS THE PATIENT BEEN EDUCATED REGARDING PAIN, THE RISK FOR PAIN, THE IMPORTANCE OF EFFECTIVE PAIN MANAGEMENT, AND THE PAIN ASSESSMENT PROCESS?YES PATIENT: ____, ____. REVIEW OF SYSTEMS REVIEWED BY: PROVIDER: . CONSTITUTIONAL: ANY CHANGE IN YOUR MEDICAL CONDITION? NO . CHILLS NO . FEVER NO . INFECTION: DO YOU HAVE NEW INFECTIONS? NO . DO YOU HAVE HISTORY OF MRSA? NO . MUSCULOSKELETAL: ANY NEW PATTERNS OF PAIN OR NUMBNESS? NO . GASTROENTEROLOGY: ANY NEW CHANGE IN BOWEL CONTROL? NO . GENITOURINARY: ANY NEW CHANGE IN BLADDER CONTROL? NO . IS THERE A CHANCE YOU COULD BE ? NO . HEMATOLOGY/LYMPH: DO YOU TAKE ANY BLOOD THINNERS? (FOR EXAMPLE- COUMADIN, PLAVIX, AGGRENOX, PLATEL, PRADAXA, OR XARELTO) NO . WHEN WAS YOUR LAST DOSE? DATE: TIME: . NEUROLOGY: HAVE YOU FALLEN IN THE PAST 6 MONTHS? NO . ANY NEW EXTREMITY NUMBNESS OR WEAKNESS? NO . CARDIOLOGY: DO YOU HAVE A PACEMAKER OR DEFIBRILLATOR? NO . RESPIRATORY: HAVE YOU BEEN SICK IN THE PAST WEEK? NO . FEVER NO . FLU LIKE SYMPTOMS? NO . COUGH NO . INTEGUMENTARY: DO YOU HAVE ANY RASHES OR OPEN SORES? NO . ALLERGIC/IMMUNO: ARE YOU ALLERGIC TO SHELLFISH OR IV DYE? NO . ANY NEW ALLERGIES? NO . PSYCHIATRIC: DO YOU HAVE THOUGHTS OF HURTING YOURSELF OR SOMEONE ELSE? NO . ARE YOU ABUSED, NEGLECTED, OR IN AN UNSAFE ENVIRONMENT? NO . ENDOCRINOLOGY: ARE YOU DIABETIC? YES . OTHER: DO YOU NEED ANY PRESCRIPTIONS? YES . IF YES, PLEASE LIST: PERCOCET . ANY NEW PROBLEMS WITH YOUR MEDICATIONS? NO . WHEN DID YOU LAST EAT? ____ . WHEN DID YOU LAST DRINK? ____ . WHAT DID YOU LAST DRINK? ____ . NAME OF PERSON DRIVING YOU HOME? ____ . DO YOU HAVE ANY OTHER QUESTIONS OR CONCERNS NO . VITAL SIGNS WT 193 LBS, HT 70 IN, BMI 27.69 INDEX, BP 156/79 MM HG, HR 80 /MIN, RR 18 /MIN, TEMP 97.3 F, OXYGEN SAT % 99%, SAFE IN ENV? (Y/N) YES, NA INITIALS CT 11:37, REVIEWED BY: ABIEL. EXAMINATION GENERAL EXAMINATION: PSYCHALERT , ORIENTED X 3 ,IRRITABLE , TALKATIVE. LUNGS:CLEAR TO AUSCULTATION BILATERALLY. HEART:HEART RATE REGULAR. MUSCULOSKELETAL:POINT TENDERNESS OVER C7 PROMINENCE AND OVER CERVICAL PARASPINOUS MUSCLES. DECREASED ROM WITH NECK FLEXION/EXTENSION. , TRIGGER POINTS AND TIGHT FIBROUS BANDS OVER TRAPEZIUS MUSCLES BILATERALLY.. 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 EVERY 2 HOURS DURING DAY DO EXERCISES WITH FINGERS, AND VERY GENTLE MOVEMENT WITH THUMB. PREVENTIVE MEDICINE PAIN CLINIC TEACHING: PROCEDURE TEACHING PRE-PROCEDURE TEACHING DONE AND PATIENT VERBALIZES UNDERRSTANDING.. PROCEDURE CODES FA211 ESTABILISHED PATIENT [facility] CHARGE DISPOSITION & COMMUNICATION FOLLOW UP AFTER INJECTION (REASON: CHECK AUTH FOR RIGHT L4-5, L5-S1 DIAGNOSTIC FACET BLOCK) ELECTRONICALLY SIGNED BY MIRANDA NAVARRETE ON 10/11/2017 AT 11:22 AM EST DISCLAIMER : THIS IS A VISIT SUMMARY EXTRACTED FROM THE [email or web address] CHART. IT IS NOT A COPY OF THE [email or web address] PROGRESS NOTE. TERESA
== END ==
LOC: M PAIN 11:30
PROVIDERS: ATTEND Nurse Practitioner Family
DX: G89.29 Other chronic pain (principal); M51.24 Other intervertebral disc displacement, thoracic region; M50.220 Other cervical disc displacement, mid-cervical region, unspecified level; M46.96 Unspecified inflammatory spondylopathy, lumbar region; E11.9 Type 2 diabetes mellitus without complications; I10 Essential (primary) hypertension; K21.9 Gastro-esophageal reflux disease without esophagitis; G61.0 Guillain-Barre syndrome; Z79.82 Long term (current) use of aspirin; Z79.4 Long term (current) use of insulin; Z79.891 Long term (current) use of opiate analgesic; Z79.899 Other long term (current) drug therapy

== ENCOUNTER → 2017-10-15 | Outpatient (CLI) | payer OTHER ==
[~2017-10-15] MED LIST changes: +BUPIVACAINE HCL 0.25% 30 ML VIAL As Ordered ONE; +ISOVUE-M 300 61% 15ML VIAL (Q9967) As Ordered ONE; +LIDOCAINE 1% SDV INJ 30 ML VIAL As Ordered ONE
--- NOTE | 2017-10-15 19:06 | REP ---
Fluoroscopic guidance for lumbar facet block: 10/15/2017. Clinical history: Low back pain. Right-sided symptoms. Five images from C-arm fluoroscopy provided to Dr. Roman of the pain clinic reviewed. Images show needles at the L4 through the L5-S1 levels with contrast in the facets adjacent. Fluoroscopy time 53 seconds. Signed by Barber Duarte MD 10/15/2017 07:50 P
--- NOTE | 2017-11-03 23:14 | ECWPNPC ---
PATIENT NAME: HAI DAIGLE : 1965 GENDER: MALE VISIT DATE: 10/15/2017 DISCHARGE DATE: 10/15/17 1613 VISIT LOCKED DATE TIME: PHYSICIAN: BONY ANTOINE RESOURCE: BONY ANTOINE REASON FOR APPOINTMENT 1. LUMBAR,FACET HISTORY OF PRESENT ILLNESS HISTORY OF PRESENT ILLNESS: PAIN THE PATIENT DESCRIBES THE PAIN... FALL RISK SCREENING: SCREENING :NO FALLS IN THE PAST YEAR CURRENT MEDICATIONS TAKING PROSCAR 5 MG TABLET 1 TABLET ORALLY ONCE A DAY, NOTES: 10-15-17799 TAKING ASPIR-81 81 MG TABLET DELAYED RELEASE 1 TABLET ORALLY ONCE A DAY, NOTES: 10-15-17799 TAKING FLECAINIDE ACETATE 50 MG TABLET 1 TABLET ORALLY EVERY 12 HRS, NOTES: 10-15-17799 TAKING ZEBETA 5 MG TABLET 1 TABLET ORALLY ONCE A DAY, NOTES: 10-14-172099 TAKING VITAMIN B-12 500 MCG TABLET 1 TABLET ORALLY ONCE A DAY, NOTES: 10-14-17899 TAKING CITRACAL PLUS 400MG TABLET 2 TABS ORALLY AT BEDTIME TAKING TIZANIDINE HCL 2 MG TABLET 1 TABLET NEEDED ORALLY EVERY 8 HRS, NOTES: A COUPLE DAYS TAKING METFORMIN HCL 1000 MG TABLET 1 TABLET WITH MEALS ORALLY TWICE DAILY, NOTES: 10-15-17799 TAKING MAGNESIUM 200 MG TABLET 1 CAPSULE WITH A MEAL ORALLY ONCE A DAY, TAKES 400 MG, NOTES: 10-15-17799 TAKING PRILOSEC 40 MG CAPSULE DELAYED RELEASE 1 CAPSULE ORALLY ONCE A DAY, NOTES: 10-15-17899 TAKING VALSARTAN 160 MG TABLET 1 TAB ORALLY ONCE A DAY, NOTES: 10-15-17899 TAKING MELATONIN 5 MG TABLET ORALLY AT BEDTIME, NOTES: 10-14-17899 TAKING MULTI FOR HIM TABLET 2 TABS ORALLY DAILY TAKING COLCHICINE 0.6 MG CAPSULE ORALLY DIRECTED TAKING INVOKANA 100 MG TABLET 1 TABLET ORALLY ONCE A DAY, NOTES: 10-15-17899 TAKING VITAMIN D3 MAXIMUM STRENGTH 5000 UNIT CAPSULE 1 CAPSULE ORALLY DAILY TAKING CYMBALTA 60 MG CAPSULE DELAYED RELEASE PARTICLES 1 CAPSULE ORALLY BEFORE BEDTIME, NOTES: 10-15-17799 TAKING SOMA 1 TABLET 1 TABLET NEEDED ORALLY ONE AT BEDTIME MDD=1, NOTES: 10-14-17 TAKING AMLODIPINE BESYLATE 2.5 MG TABLET 1 TABLET ORALLY ONCE A DAY, NOTES: 10-15-17799 TAKING POTASSIUM BICARB & CHLORIDE 20 MEQ PACKET 1 TAB ORALLY DAILY, NOTES: 10-15-17 1200 TAKING PERCOCET 5-325 MG TABLET 1 TABLET ORALLY ONCE DAILY PRN FOR PAIN MDD=1, NOTES: 10-14-172099 TAKING LIPITOR 20 MG TABLET 1 TABLET ORALLY ONCE A DAY, NOTES: 10-14-172099 TAKING GABAPENTIN 300 MG TABLET ORALLY AT BEDTIME, NOTES: 10-14-172099 TAKING GABAPENTIN 100 MG CAPSULE ORALLY DAILY, NOTES: 10-15-17799 TAKING VITAMIN D 1000 UNIT TABLET 1 TABLET ORALLY ONCE A DAY, NOTES: 10-15-17799 NOT-TAKING AMOXICILLIN 500 MG CAPSULE 1 CAPSULE ORALLY EVERY 8 HRS, NOTES: NO UNKNOWN CELEXA 20 MG TABLET 1 TABLET ORALLY ONCE A DAY, NOTES: 10-15-17799 MEDICATION LIST REVIEWED AND RECONCILED WITH THE PATIENT PAST MEDICAL HISTORY DIABETES MIGRAINES PAF HTN GERD HIGH CHOLESTEROL GUILLAIN BARRE ALLERGIES NO[ALLERGIES VERIFIED] REVIEW OF SYSTEMS REVIEWED BY: PROVIDER: . CONSTITUTIONAL: ANY CHANGE IN YOUR MEDICAL CONDITION? NO . CHILLS NO . FEVER NO . INFECTION: DO YOU HAVE NEW INFECTIONS? NO . DO YOU HAVE HISTORY OF MRSA? NO . MUSCULOSKELETAL: ANY NEW PATTERNS OF PAIN OR NUMBNESS? NO . GASTROENTEROLOGY: ANY NEW CHANGE IN BOWEL CONTROL? NO . GENITOURINARY: ANY NEW CHANGE IN BLADDER CONTROL? NO . IS THERE A CHANCE YOU COULD BE ? NO . HEMATOLOGY/LYMPH: DO YOU TAKE ANY BLOOD THINNERS? (FOR EXAMPLE- COUMADIN, PLAVIX, AGGRENOX, PLATEL, PRADAXA, OR XARELTO) NO . WHEN WAS YOUR LAST DOSE? DATE: TIME: . NEUROLOGY: HAVE YOU FALLEN IN THE PAST 6 MONTHS? NO . ANY NEW EXTREMITY NUMBNESS OR WEAKNESS? NO . CARDIOLOGY: DO YOU HAVE A PACEMAKER OR DEFIBRILLATOR? NO . RESPIRATORY: HAVE YOU BEEN SICK IN THE PAST WEEK? NO . FEVER NO . FLU LIKE SYMPTOMS? NO . COUGH NO . INTEGUMENTARY: DO YOU HAVE ANY RASHES OR OPEN SORES? NO . ALLERGIC/IMMUNO: ARE YOU ALLERGIC TO SHELLFISH OR IV DYE? NO . ANY NEW ALLERGIES? NO . PSYCHIATRIC: DO YOU HAVE THOUGHTS OF HURTING YOURSELF OR SOMEONE ELSE? NO . ARE YOU ABUSED, NEGLECTED, OR IN AN UNSAFE ENVIRONMENT? NO . ENDOCRINOLOGY: ARE YOU DIABETIC? YES . OTHER: DO YOU NEED ANY PRESCRIPTIONS? NO . IF YES, PLEASE LIST: ____ . ANY NEW PROBLEMS WITH YOUR MEDICATIONS? NO . WHEN DID YOU LAST EAT? ____1130 TOAST . WHEN DID YOU LAST DRINK? ____WATER . WHAT DID YOU LAST DRINK? ____ . NAME OF PERSON DRIVING YOU HOME? ____MARY . DO YOU HAVE ANY OTHER QUESTIONS OR CONCERNS NO . VITAL SIGNS WT 193.6 LBS, HT 70 IN, BMI 27.78 INDEX, BP 145/85 MM HG, HR 77 /MIN, RR 16 /MIN, TEMP 96.3 F, OXYGEN SAT % 99%, NA INITIALS TL 1412, REVIEWED BY: KG. ASSESSMENTS SPONDYLOSIS OF LUMBAR REGION WITHOUT MYELOPATHY OR RADICULOPATHY - M47.816 (PRIMARY) SPONDYLOSIS OF LUMBOSACRAL REGION WITHOUT MYELOPATHY OR RADICULOPATHY - M47.817 PROCEDURES PN LUMBAR FACET BLOCK DIAGNOSTIC PRE PROCEDURE DIAGNOSIS LUMBAR SPONDYLOSIS, LUMBOSACRAL SPONDYLOSIS POST PROCEDURE DIAGNOSIS LUMBAR SPONDYLOSIS, LUMBOSACRAL SPONDYLOSIS PROCEDURE RIGHT L4-L5 AND RIGHT L5-S1 FACET BLOCK DIAGNOSTIC NUMBER [address] BONY ANTOINE DEPUTY SHERIFF/INVESTIGATOR NONE ANESTHESIA LOCAL PRE PROCEDURE NOTE THE PATIENT WITH HISTORY OF CHRONIC LOW BACK PAIN. I EVALUATED THE PATIENT AND REVIEWED THE CHART. I WENT OVER THE RISKS, ALTERNATIVES, AND BENEFITS ASSOCIATED WITH THIS PROCEDURE. THE PATIENT WOULD LIKE TO PROCEED AND GAVE CONSENT TO PERFORM THE PROCEDURE. AGREED WITH THE PATIENT WE ARE DOING THIS PROCEDURE TO DETERMINE IF THE PATIENT IS A CANDIDATE FOR A RADIOFREQUENCY ABLATION OF THE FACETS JOINTS. THE PATIENT DENIES UNEXPLAINABLE WEIGHT LOSS, FEVER, CHILLS, OR NEW CHANGES IN URINARY OR BOWEL CONTROL DESCRIPTION OF PROCEDURE THE PATIENT WAS BROUGHT TO THE PROCEDURE ROOM AND PLACED IN THE PRONE POSITION. THE LUMBOSACRAL AREA WAS CLEANED WITH CHLORAPREP SOLUTION AND DRAPED ASEPTICALLY. THE PROCEDURE WAS DONE UNDER STERILE CONDITIONS. I CHECKED LATERALITY AND THE LEVEL WHERE THE PROCEDURE WAS GOING TO BE PERFORMED WITH THE PATIENT AND THE SUPPORTING STAFF AT THE MOMENT OF THE TIME OUT IN THE PROCEDURE ROOM. UNDER FLUOROSCOPIC GUIDANCE, TARGETS WERE SELECTED AT THE INTERSECTION OF THE RIGHT TRANSVERSE PROCESS OF L4, L5 AND ALA OF S1 WITH ITS RESPECTIVE SUPERIOR ARTICULAR PROCESS. LIDOCAINE WAS USED TO NUMB THE SKIN AND THE SUBCUTANEOUS TISSUE BELOW IT. SPINAL NEEDLE, 22-GAUGE WAS ADVANCED UNDER FLUOROSCOPIC GUIDANCE AND FOLLOWING PATIENT FEEDBACK UNTIL THE TARGETS WERE REACHED. POSITION OF THE NEEDLES WAS VERIFIED WITH AP AND LATERAL VIEWS. AFTER PROPER POSITION OF THE NEEDLES WAS ACHIEVED, ISOVUE-M DYE 30% 0.1 ML WAS INJECTED AT EACH SITE SHOWING ADEQUATE SPREAD OF THE DYE. THEN A SOLUTION OF 0.4 ML OF BUPIVACAINE 0.25% WAS INJECTED AT EACH SITE. THERE WAS NO EVIDENCE OF BLOOD, PARESTHESIA OR CEREBROSPINAL FLUID DURING THE PROCEDURE. THE PATIENT WAS SENT TO THE RECOVERY ROOM. THE PATIENT WAS MOVING THE EXTREMITIES AND DOING WELL. THERE WAS NO COMPLICATION DURING THE PROCEDURE. FLUOROSCOPY TIME WAS 53 SECONDS POST PROCEDURE NOTE THE PATIENT WILL DOCUMENT HIS PAIN LEVEL AND RESPONSE TO THIS PROCEDURE EVERY 30 MINUTES. THE PATIENT WILL BE SEEN IN A FOLLOW UP IN THE NEXT FEW WEEKS. FURTHER DETERMINATION FOR HIS CASE WILL BE DONE AT THE NEXT VISIT. INSTRUCTIONS WERE GIVEN, QUESTIONS WERE ANSWERED, AND THE PATIENT EXPRESSED UNDERSTANDING AND AGREED WITH THE PLAN. I, VIC SABA, DOCUMENTED THE ABOVE INFORMATION ACTING A SCRIBE FOR DR. ANTOINE. I HAVE REVIEWED THE ABOVE DOCUMENT, WRITTEN BY VIC CANAS AND I VERIFY THAT IT IS ACCURATE DIAGNOSTIC IMAGING [facility] FACET BLOCK (PAIN)[id number] PROCEDURE CODES 65093 INJ PARAVERT F JNT L/S 1 LEV, MODIFIERS: [place] 77557 INJ PARAVERT F JNT L/S 2 LEV, MODIFIERS: RT [id number] RADXPS IN END [id number] PXD DISPOSITION & COMMUNICATION FOLLOW UP 2 WEEKS ELECTRONICALLY SIGNED BY BONY ANTOINE MD ON 11/03/2017 AT 07:02 PM EST DISCLAIMER : THIS IS A VISIT SUMMARY EXTRACTED FROM THE [employer] CHART. IT IS NOT A COPY OF THE [employer] PROGRESS NOTE. MTDD
== END ==
LOC: M PAIN 14:30
PROVIDERS: ATTEND Anesthesiology
DX: G89.29 Other chronic pain (principal); M47.816 Spondylosis without myelopathy or radiculopathy, lumbar region; M47.817 Spondylosis without myelopathy or radiculopathy, lumbosacral region; I10 Essential (primary) hypertension; E11.9 Type 2 diabetes mellitus without complications; Z79.82 Long term (current) use of aspirin; Z79.84 Long term (current) use of oral hypoglycemic drugs; Z79.899 Other long term (current) drug therapy; Z79.891 Long term (current) use of opiate analgesic
CPT/HCPCS: 64493; 64494; Q9967

== ENCOUNTER → 2017-10-23 | Outpatient (CLI) | payer OTHER ==
[~2017-10-23] MED LIST changes: -BUPIVACAINE HCL 0.25% 30 ML VIAL As Ordered ONE; -ISOVUE-M 300 61% 15ML VIAL (Q9967) As Ordered ONE; -LIDOCAINE 1% SDV INJ 30 ML VIAL As Ordered ONE
--- NOTE | 2017-10-23 23:52 | ECWPNPC ---
PATIENT NAME: HAI DAIGLE : 1965 GENDER: MALE VISIT DATE: 10/23/2017 DISCHARGE DATE: 10/23/17 1310 VISIT LOCKED DATE TIME: PHYSICIAN: ELVIN CROWE RESOURCE: ELVIN CROWE REASON FOR APPOINTMENT 1. POST DIAG FACET BLOCK HISTORY OF PRESENT ILLNESS HISTORY OF PRESENT ILLNESS: PAIN THE PATIENT DESCRIBES THE PAIN... FALL RISK SCREENING: SCREENING :NO FALLS IN THE PAST YEAR TODAY'S VISIT: NOTES: S/P RIGHT DIAGNOSTIC LUMBAR FACET BLOCK AT L4-5 AND L5-S1 CMPLETED ON 10/13/17. PAIN LEVEL 10/10 PPRIOR TO THE BLOCK - POST BLOCK PAIN LEVEL DECREASED TO 4/10X 2 HRS, THEN TO 2/10 X 4 HRS, THEN TO 0/10 UNTIL 448 HRS POST BLOCK. PASIN LEVEL THEN RETURNED TO 7/10 AND REMAINED AT THE 7-10/10 LEVEL SINCE. HE HAD 80-100 % RELIEF OF PAIN IN THE TREATED AREA AND WOULD LIKE TO REPEAT RADIOFREUENCY MARIE. HE HAS NOT BEEN ABLE TO FUNCTION. HE IS NOT TOLERATING INCREASED DOSOF GABAPENTIN IN THE DAYTIME THIS MAKES HIM TOO SLEEPY. HE DID TAKE A PERCOCET TWICE A DAY BUT HAS RUN OUT OF HIS PAIN MED.. CURRENT MEDICATIONS TAKING PROSCAR 5 MG TABLET 1 TABLET ORALLY ONCE A DAY TAKING ASPIR-81 81 MG TABLET DELAYED RELEASE 1 TABLET ORALLY ONCE A DAY TAKING FLECAINIDE ACETATE 50 MG TABLET 1 TABLET ORALLY EVERY 12 HRS TAKING ZEBETA 5 MG TABLET 1 TABLET ORALLY ONCE A DAY TAKING VITAMIN B-12 500 MCG TABLET 1 TABLET ORALLY ONCE A DAY TAKING CITRACAL PLUS 400MG TABLET 2 TABS ORALLY AT BEDTIME TAKING TIZANIDINE HCL 2 MG TABLET 1 TABLET NEEDED ORALLY EVERY 8 HRS TAKING METFORMIN HCL 1000 MG TABLET 1 TABLET WITH MEALS ORALLY TWICE DAILY TAKING MAGNESIUM 200 MG TABLET 1 CAPSULE WITH A MEAL ORALLY ONCE A DAY, TAKES 400 MG TAKING PRILOSEC 40 MG CAPSULE DELAYED RELEASE 1 CAPSULE ORALLY ONCE A DAY TAKING VALSARTAN 160 MG TABLET 1 TAB ORALLY ONCE A DAY TAKING MELATONIN 5 MG TABLET ORALLY AT BEDTIME TAKING MULTI FOR HIM TABLET 2 TABS ORALLY DAILY TAKING COLCHICINE 0.6 MG CAPSULE ORALLY DIRECTED TAKING INVOKANA 100 MG TABLET 1 TABLET ORALLY ONCE A DAY TAKING VITAMIN D3 MAXIMUM STRENGTH 5000 UNIT CAPSULE 1 CAPSULE ORALLY DAILY TAKING CYMBALTA 60 MG CAPSULE DELAYED RELEASE PARTICLES 1 CAPSULE ORALLY BEFORE BEDTIME TAKING SOMA 1 TABLET 1 TABLET NEEDED ORALLY ONE AT BEDTIME MDD=1 TAKING AMLODIPINE BESYLATE 2.5 MG TABLET 1 TABLET ORALLY ONCE A DAY TAKING POTASSIUM BICARB & CHLORIDE 20 MEQ PACKET 1 TAB ORALLY DAILY TAKING LIPITOR 20 MG TABLET 1 TABLET ORALLY ONCE A DAY TAKING GABAPENTIN 300 MG TABLET ORALLY AT BEDTIME TAKING GABAPENTIN 100 MG CAPSULE ORALLY DAILY TAKING VITAMIN D 1000 UNIT TABLET 1 TABLET ORALLY ONCE A DAY TAKING PERCOCET 5-325 MG TABLET 1 TABLET ORALLY Q 8 HRS PRN PAIN MDD=2 NOT-TAKING CELEXA 20 MG TABLET 1 TABLET ORALLY ONCE A DAY NOT-TAKING AMOXICILLIN 500 MG CAPSULE 1 CAPSULE ORALLY EVERY 8 HRS, NOTES: NO MEDICATION LIST REVIEWED AND RECONCILED WITH THE PATIENT PAST MEDICAL HISTORY DIABETES MIGRAINES PAF HTN GERD HIGH CHOLESTEROL GUILLAIN BARRE ALLERGIES N.K.D.A. SURGICAL HISTORY BOWEL RESECTION 2014 RIGHT KNEE ARTHROSCOPY 2013 SOCIAL HISTORY GENERAL: TOBACCO USE ARE YOU A:NONSMOKER ALCOHOL SCREENING DID YOU HAVE A DRINK CONTAINING ALCOHOL IN THE PAST YEAR?YES HOW OFTEN DID YOU HAVE SIX OR MORE DRINKS ON ONE OCCASION IN THE PAST YEAR?NEVER (0 POINTS) HOW MANY DRINKS DID YOU HAVE ON A TYPICAL DAY WHEN YOU WERE DRINKING IN THE PAST YEAR?1 OR 2 (0 POINTS) HOW OFTEN DID YOU HAVE A DRINK CONTAINING ALCOHOL IN THE PAST YEAR?MONTHLY OR LESS (1 POINT) POINTS1 INTERPRETATIONNEGATIVE RECREATIONAL DRUG USE DRUG USE?NO TAOISM [id number] OTHER LANGUAGE LANGUAGES SPOKEN:MONGOLIAN LEARNING BARRIERS / SPECIAL NEEDS CHANGE FROM LAST VISIT?NO BARRIERS TO LEARNING?NO HEARING IMPAIRED?NO VISION IMPAIRED?YES COGNITIVELY IMPAIRED?NO :CORRECTIVE LENSES READINESS TO LEARN?YES LEARNING PREFERENCES?NO LEARNING CAPABILITIES PRESENT?YES EMOTIONAL BARRIERS?NO SPECIAL DEVICES?NO CORRECTIONAL THERAPY DIRECTOR NEEDED?NO PAIN CLINIC PFS, CLERGY, PUBLIC HEALTH REFERRALS PFS REFERRAL NEEDED?NO CLERGY REFERRAL NEEDED?NO PUBLIC HEALTH REFERRAL NEEDED?NO WAS THE PROVIDER NOTIFIED OF ANY PERTINENT INFO?NO HAS THE PATIENT BEEN EDUCATED REGARDING HIS/HER PLAN OF CARE?YES HAS THE PATIENT BEEN EDUCATED REGARDING PAIN, THE RISK FOR PAIN, THE IMPORTANCE OF EFFECTIVE PAIN MANAGEMENT, AND THE PAIN ASSESSMENT PROCESS?YES PATIENT: ____, ____. ADVANCE DIRECTIVES HEALTH CARE PROXY?YES NAME OF HCP AUDREY DAIGLE CONTACT # FOR HCP [phone] DO YOU HAVE A COPY WITH YOU? ALREADY ON FILE DO YOU HAVE A DNR?NO WOULD YOU LIKE MORE INFORMATION?NO LIVING WILL?NO WOULD YOU LIKE MORE INFORMATION?NO POWER OF HIGH SCHOOL VICE PRINCIPAL?NO WOULD YOU LIKE MORE INFORMATION?NO HOSPITALIZATION/MAJOR DIAGNOSTIC PROCEDURE SURGERY RELATED GUILLAIN BARRE REQUIRING PLASMAPHERESIS, IVIG, STEROIDS AND INTUBATION [facility] 09/2015 REVIEW OF SYSTEMS REVIEWED BY: PROVIDER: . CONSTITUTIONAL: ANY CHANGE IN YOUR MEDICAL CONDITION? NO . CHILLS NO . FEVER NO . INFECTION: DO YOU HAVE NEW INFECTIONS? NO . DO YOU HAVE HISTORY OF MRSA? NO . MUSCULOSKELETAL: ANY NEW PATTERNS OF PAIN OR NUMBNESS? NO . GASTROENTEROLOGY: ANY NEW CHANGE IN BOWEL CONTROL? NO . GENITOURINARY: ANY NEW CHANGE IN BLADDER CONTROL? NO . IS THERE A CHANCE YOU COULD BE ? NO . HEMATOLOGY/LYMPH: DO YOU TAKE ANY BLOOD THINNERS? (FOR EXAMPLE- COUMADIN, PLAVIX, AGGRENOX, PLATEL, PRADAXA, OR XARELTO) NO . WHEN WAS YOUR LAST DOSE? DATE: TIME: . NEUROLOGY: HAVE YOU FALLEN IN THE PAST 6 MONTHS? NO . ANY NEW EXTREMITY NUMBNESS OR WEAKNESS? NO . CARDIOLOGY: DO YOU HAVE A PACEMAKER OR DEFIBRILLATOR? NO . RESPIRATORY: HAVE YOU BEEN SICK IN THE PAST WEEK? NO . FEVER NO . FLU LIKE SYMPTOMS? NO . COUGH NO . INTEGUMENTARY: DO YOU HAVE ANY RASHES OR OPEN SORES? NO . ALLERGIC/IMMUNO: ARE YOU ALLERGIC TO SHELLFISH OR IV DYE? NO . ANY NEW ALLERGIES? NO . PSYCHIATRIC: DO YOU HAVE THOUGHTS OF HURTING YOURSELF OR SOMEONE ELSE? NO . ARE YOU ABUSED, NEGLECTED, OR IN AN UNSAFE ENVIRONMENT? NO . ENDOCRINOLOGY: ARE YOU DIABETIC? NO . OTHER: DO YOU NEED ANY PRESCRIPTIONS? YES . IF YES, PLEASE LIST: PERCOCET, SOMA . ANY NEW PROBLEMS WITH YOUR MEDICATIONS? NO . WHEN DID YOU LAST EAT? ____ . WHEN DID YOU LAST DRINK? ____ . WHAT DID YOU LAST DRINK? ____ . NAME OF PERSON DRIVING YOU HOME? ____ . DO YOU HAVE ANY OTHER QUESTIONS OR CONCERNS NO . VITAL SIGNS WT 199.0 LBS, HT 70 IN, BMI 28.55 INDEX, BP 151/92 MM HG, HR 76 /MIN, RR 16 /MIN, TEMP 96.5 F, OXYGEN SAT % 99%, NA INITIALS TL 1153, REVIEWED BY: LS. EXAMINATION GENERAL EXAMINATION: PSYCHALERT , ORIENTED X 3 ,IRRITABLE , TALKATIVE. LUNGS:CLEAR TO AUSCULTATION BILATERALLY. HEART:HEART RATE REGULAR. MUSCULOSKELETAL:PALPATION: POSITIVE FOR PAIN OVER L/S SPINE. POSITIVE FOR PAIN OVER L/S PARSPINALS AND LUMBAR FACETS RIGHT SIDE. , TRIGGER POINTS:, ELICITED WITH PALPATION OVER LUMBAR PARAVERTEBRAL MUSCLES AND INTO THE SECRUM. RESTRICTION OF ROM IN THIS AREA. VERY SLOW TO RISE TO STANDING POSITION. POSTURE IS STOOPED. GAIT SLOW AND ANTALGIC. ASSESSMENTS SPONDYLOSIS OF LUMBAR REGION WITHOUT MYELOPATHY OR RADICULOPATHY - M47.816 (PRIMARY) SPONDYLOSIS OF LUMBOSACRAL REGION WITHOUT MYELOPATHY OR RADICULOPATHY - M47.817 TREATMENT SPONDYLOSIS OF LUMBAR REGION WITHOUT MYELOPATHY OR RADICULOPATHY START LIDOCAINE CREAM, 4 %, 1 APPLICATION TO AFFECTED AREA NEEDED, EXTERNALLY, THREE TIMES A DAY TO RIGHT LOW BACK, 30 DAY(S), 3 TUBE, REFILLS 1 LAB: VITAMIN D 25-HYDROXY RF FACET LUMBAR SACRAL ELVIN BARNETT 10/23/2017 7:05:52 PM > RIGHT L4-5, L5-S1 NOTES: IS NOT ABLE TO TAKE NSAID IS S/P GASTRIC BYPASS SURGERY AND HAS SIG GASTRIC PAIN. CHECK ON FORMULARY FOR COVERED MEDS. - CALL [phone] TO TALK TO ALIVIA BETWEEN 8-9 AM. PREVENTIVE MEDICINE PAIN CLINIC TEACHING: PROCEDURE TEACHING PRE LUMBAR RADIOFREQUENCY FACET INSTRUCTIONS REVIEWED WITH PT. VERBALIZED UNDERSTANDING.. PROCEDURE CODES FA211 ESTABILISHED PATIENT [facility] FACILITY CHARGE DISPOSITION & COMMUNICATION FOLLOW UP AFTER INJECTION SCHED MARIE (REASON: CHECK FOR AUTH L4-5 AND L5-S1 RIGHT RADIOFREQ) ELECTRONICALLY SIGNED BY MIRANDA NAVARRETE ON 10/23/2017 AT 07:09 PM EST DISCLAIMER : THIS IS A VISIT SUMMARY EXTRACTED FROM THE [employer] CHART. IT IS NOT A COPY OF THE [employer] PROGRESS NOTE. TERESA
== END ==
LOC: M PAIN 11:30
PROVIDERS: ATTEND Nurse Practitioner Family
DX: G89.29 Other chronic pain (principal); M47.816 Spondylosis without myelopathy or radiculopathy, lumbar region; M47.817 Spondylosis without myelopathy or radiculopathy, lumbosacral region; E11.9 Type 2 diabetes mellitus without complications; G43.909 Migraine, unspecified, not intractable, without status migrainosus; I10 Essential (primary) hypertension; K21.9 Gastro-esophageal reflux disease without esophagitis; G61.0 Guillain-Barre syndrome; Z79.82 Long term (current) use of aspirin; Z79.84 Long term (current) use of oral hypoglycemic drugs; Z79.891 Long term (current) use of opiate analgesic; Z79.899 Other long term (current) drug therapy

== ENCOUNTER → 2017-10-31 | Outpatient (REF) | payer OTHER | LOC: M LABDRAW1 15:19 | PROVIDERS: ATTEND Nurse Practitioner Family | DX: M47.816 Spondylosis without myelopathy or radiculopathy, lumbar region (principal) ==

== ENCOUNTER → 2017-11-18 | Outpatient (CLI) | payer OTHER ==
[~2017-11-18] MED LIST changes: -/BISO10TA OR; -/INSULEV; -/PANT40TA; -/WARF3TA; -/WARF3TA OR; -/WARF5TA; -/WARF5TA OR; -ACET-683 PO; -ACTO15TA PO; -ALDA25TA PO; -ALDA25TA2 PO; -AMLO2.5T; -ASPI325T PO; -ASPI81TA24 PO; -ASPI81TA3 OR; -ASPI81TA45 PO; -ASPI81TA83; -ASPI81TA85 PO; -ATEN50TA2; -ATOR1TAB21 PO; -BISO5TAB5 PO; +BUPIVACAINE HCL 0.25% 30 ML VIAL As Ordered; -CALCCAP PO; -CALCIUM W/VIT D PO; -CELE10TA; -CELE10TA OR; -CELE10TA PO; -CELE20TA PO; -CHLO125TA PO; -CIPR100T4 OR; -CITRTAB10 PO; -COLA100C5 PO; -COLC1CAP PO; -COZA50TA PO; -D-50TAB PO; -FLEC1TAB PO; -FLEC50TA PO; -FLECAINIDE PO; -GABA-279 PO; -GABA-282 PO; -GABA-283 PO; -GLUC1000; -GLUC1000 OR; -HUMA75VL SC; -HUMALOG; -HYDR25TA6; -HYDR25TA6 OR; -IBUP-1022 PO; -IMIT100T PO; -INSULANT; -INSULIN DETEMIR; -INSULIN SQ; -INVO100T PO; +ISOVUE-M 300 61% 15ML VIAL (Q9967) As Ordered; -JANUVIA; -LIDO5TD TD; +LIDOCAINE 1% SDV INJ 30 ML VIAL As Ordered; -LIPI20TA PO; -LISI20TA5; -LISI20TA5 OR; -LISI40TA OR; -MAGN1TAB25 PO; -MAGN500T2 OR; -MAXA10TA14 PO; -MAXA10TA17; -MAXA10TA17 OR; -MELA3TAB49 PO; -METF-415 PO; -METF10004 PO; -MILKSUS PO; -MIRA3350 PO; -MOBI4TAB PO; -MULTCAP PO; -Metformin PO; -NAPR250T4 PO; -NEUR100C PO; -NITR4TASL SL; -NORC1TAB4 PO; -NORV5TAB OR; -NOVOLOG100 MG/ML; -OMEP40CA2 PO; -PERC5TAB12 PO; -PERC5TAB8; -POTA75TA PO; -PRIL40CA PO; -PRIN20TA3; -PROP120C OR; -PROP80CA PO; -PROS5TAB PO; -RIBO100C OR; -SENO8.6T5 PO; -SOMA350T PO; -TIZA2CAP3 PO; -TOPI50TA; +TRIAMCINOLONE ACETONIDE SUSP 40 MG/ML VIAL (J3301) As Ordered; -TYLE167L PO; -TYLE325T5 PO; -ULTR50TA8 PO; -VALS1TAB47 PO; -VICO5TAB OR; -VITA-193 PO; -VITA500046 PO; -VITA500T3 PO; -VITA500T53 PO; -VITACAP9 PO; -VITMTA PO; -VOLT1GEL15 TD; -ZOCO40TA; -ZOCO40TA OR; -[UNRECOGNIZED DRUG - OTHER]; -[UNRECOGNIZED DRUG - OTHER] PO; -januvia PO; -tylenol #3 PO
== END ==
LOC: M PAIN 13:00
DX: G89.29 Other chronic pain (principal); M47.816 Spondylosis without myelopathy or radiculopathy, lumbar region; M47.817 Spondylosis without myelopathy or radiculopathy, lumbosacral region; I10 Essential (primary) hypertension; E11.9 Type 2 diabetes mellitus without complications; G43.909 Migraine, unspecified, not intractable, without status migrainosus; K21.9 Gastro-esophageal reflux disease without esophagitis; E78.00 Pure hypercholesterolemia, unspecified; G61.0 Guillain-Barre syndrome; Z79.82 Long term (current) use of aspirin; Z79.84 Long term (current) use of oral hypoglycemic drugs; Z79.891 Long term (current) use of opiate analgesic; Z79.899 Other long term (current) drug therapy
CPT/HCPCS: J3301

== ENCOUNTER → 2017-12-08 | Outpatient (CLI) | payer OTHER | LOC: M PAIN 08:45 | DX: M47.816 Spondylosis without myelopathy or radiculopathy, lumbar region (principal); M50.220 Other cervical disc displacement, mid-cervical region, unspecified level; M47.817 Spondylosis without myelopathy or radiculopathy, lumbosacral region; E11.9 Type 2 diabetes mellitus without complications; I10 Essential (primary) hypertension; E78.00 Pure hypercholesterolemia, unspecified; M46.92 Unspecified inflammatory spondylopathy, cervical region; Z79.82 Long term (current) use of aspirin; Z79.891 Long term (current) use of opiate analgesic; Z79.899 Other long term (current) drug therapy | CPT/HCPCS: G0463 ==

== ENCOUNTER → 2017-12-24 | Outpatient (CLI) | payer OTHER ==
[~2017-12-24] MED LIST changes: +diazePAM 5 MG TAB As Ordered; +oxyCODONE 5MG TAB As Ordered
== END ==
LOC: M PAIN 08:45
DX: G89.29 Other chronic pain (principal); M47.812 Spondylosis without myelopathy or radiculopathy, cervical region; E11.9 Type 2 diabetes mellitus without complications; G43.909 Migraine, unspecified, not intractable, without status migrainosus; I10 Essential (primary) hypertension; E78.00 Pure hypercholesterolemia, unspecified; G91.0 Communicating hydrocephalus; Z79.52 Long term (current) use of systemic steroids; Z79.84 Long term (current) use of oral hypoglycemic drugs; Z79.891 Long term (current) use of opiate analgesic; Z79.899 Other long term (current) drug therapy
CPT/HCPCS: J3301

== ENCOUNTER → 2018-01-07 | Outpatient (CLI) | payer OTHER | LOC: M PAIN 08:30 | DX: M47.816 Spondylosis without myelopathy or radiculopathy, lumbar region (principal); M50.220 Other cervical disc displacement, mid-cervical region, unspecified level; M47.817 Spondylosis without myelopathy or radiculopathy, lumbosacral region; M46.92 Unspecified inflammatory spondylopathy, cervical region; E11.9 Type 2 diabetes mellitus without complications; I10 Essential (primary) hypertension; E78.00 Pure hypercholesterolemia, unspecified; Z79.82 Long term (current) use of aspirin; Z79.84 Long term (current) use of oral hypoglycemic drugs | CPT/HCPCS: G0463 ==

== ENCOUNTER → 2018-02-04 | Outpatient (REF) | payer OTHER ==
[2018-02-04 14:40] LABS: INFLUENZA A AMPLIFICATION NEGATIVE (NEGATIVE); INFLUENZA B AMPLIFICATION NEGATIVE (NEGATIVE)
[2018-02-04 19:19] LABS: C REACTIVE PROTEIN QUANTITATIV 4.23 MG/DL (0.00-0.30)
== END ==
LOC: M LAB REF 13:17
DX: R50.9 Fever, unspecified (principal)

== ENCOUNTER → 2018-02-10 | Outpatient (REF) | payer OTHER ==
[2018-02-10 18:14] LABS: C REACTIVE PROTEIN QUANTITATIV < 0.30 MG/DL (0.00-0.30)
== END ==
LOC: M LAB REF 17:30
DX: R50.9 Fever, unspecified (principal)

== ENCOUNTER → 2018-02-26 | Outpatient (CLI) | payer OTHER | LOC: M PAIN 09:15 | DX: M47.816 Spondylosis without myelopathy or radiculopathy, lumbar region (principal); M50.220 Other cervical disc displacement, mid-cervical region, unspecified level; M47.817 Spondylosis without myelopathy or radiculopathy, lumbosacral region; M46.92 Unspecified inflammatory spondylopathy, cervical region; E11.9 Type 2 diabetes mellitus without complications; G43.909 Migraine, unspecified, not intractable, without status migrainosus; I10 Essential (primary) hypertension; K21.9 Gastro-esophageal reflux disease without esophagitis; E78.00 Pure hypercholesterolemia, unspecified; G61.0 Guillain-Barre syndrome; Z79.82 Long term (current) use of aspirin; Z79.84 Long term (current) use of oral hypoglycemic drugs; Z79.891 Long term (current) use of opiate analgesic; Z79.899 Other long term (current) drug therapy; Z98.84 Bariatric surgery status | CPT/HCPCS: G0463 ==

== ENCOUNTER → 2018-04-02 | Outpatient (CLI) | payer OTHER | LOC: M PAIN 08:30 | DX: M47.816 Spondylosis without myelopathy or radiculopathy, lumbar region (principal); M47.817 Spondylosis without myelopathy or radiculopathy, lumbosacral region; E11.9 Type 2 diabetes mellitus without complications; G43.909 Migraine, unspecified, not intractable, without status migrainosus; I10 Essential (primary) hypertension; K21.9 Gastro-esophageal reflux disease without esophagitis; E78.00 Pure hypercholesterolemia, unspecified; G65.0 Sequelae of Guillain-Barre syndrome; Z79.891 Long term (current) use of opiate analgesic; Z79.82 Long term (current) use of aspirin; Z79.84 Long term (current) use of oral hypoglycemic drugs; Z79.899 Other long term (current) drug therapy; Z87.39 Personal history of other diseases of the musculoskeletal system and connective tissue | CPT/HCPCS: G0463 ==

== ENCOUNTER → 2018-04-09 | Outpatient (REF) | payer OTHER ==
[2018-04-09 18:43] LABS: C REACTIVE PROTEIN QUANTITATIV < 0.30 MG/DL (0.00-0.30)
[2018-04-14 08:06] LABS: ALDOSTERONE 9.7 ng/dL (0.0-30.0)
[2018-04-15 00:07] LABS: RENIN LEVEL 1.213 ng/mL/hr (0.167-5.380)
== END ==
LOC: M LAB REF 17:33
DX: R53.83 Other fatigue (principal)

== ENCOUNTER → 2018-04-15 | Outpatient (CLI) | payer OTHER | LOC: M PAIN 09:30 | DX: G89.29 Other chronic pain (principal); M47.816 Spondylosis without myelopathy or radiculopathy, lumbar region; M46.96 Unspecified inflammatory spondylopathy, lumbar region; M46.90 Unspecified inflammatory spondylopathy, site unspecified; E11.9 Type 2 diabetes mellitus without complications; G43.909 Migraine, unspecified, not intractable, without status migrainosus; I10 Essential (primary) hypertension; K21.9 Gastro-esophageal reflux disease without esophagitis; E78.00 Pure hypercholesterolemia, unspecified; Z79.82 Long term (current) use of aspirin; Z79.891 Long term (current) use of opiate analgesic; Z79.84 Long term (current) use of oral hypoglycemic drugs; Z79.899 Other long term (current) drug therapy; Z86.79 Personal history of other diseases of the circulatory system; Z87.39 Personal history of other diseases of the musculoskeletal system and connective tissue; Z98.84 Bariatric surgery status | CPT/HCPCS: J3301 ==

== ENCOUNTER → 2018-04-17 | Outpatient (REF) | payer OTHER ==
[2018-04-17 13:33] LABS: APPEARANCE, URINE CLEAR (CLEAR); BACTERIA, URINE AUTO NEGATIVE (NEGATIVE); BILIRUBIN, URINE AUTO NEGATIVE (NEGATIVE); BLOOD, URINE BLOOD NEGATIVE (NEGATIVE); COLOR, URINE YELLOW (YELLOW); GLUCOSE, URINE (UA) AUTO 3+ mg/dL (NEGATIVE); KETONE, URINE AUTO NEGATIVE (NEGATIVE); LEUKOCYTE ESTERASE, URINE AUTO NEGATIVE (NEGATIVE); MUCUS, URINE SMALL (NEGATIVE); NITRITE, URINE AUTO NEGATIVE (NEGATIVE); PROTEIN, URINE AUTO NEGATIVE (NEGATIVE); RBC, URINE AUTO 0 /HPF (0-3); SQUAMOUS EPITHELIAL CELL UR AU 0 /HPF (0-6); UROBILINOGEN, URINE AUTO 0.2 mg/dL (0.0-2.0); WBC, URINE AUTO 1 /HPF (0-3)
== END ==
LOC: M SMT 13:04
DX: R39.11 Hesitancy of micturition (principal)

== ENCOUNTER → 2018-05-04 | Outpatient (CLI) | payer OTHER | LOC: M RAD 06:36 | DX: M54.5 Low back pain (principal) | CPT/HCPCS: 72148 ==

== ENCOUNTER → 2018-05-07 | Outpatient (REF) | payer OTHER ==
[2018-05-12 06:17] LABS: PROMETHEUS IBD ANTIBODIES SEE SEPARATE REPORT
[2018-05-12 06:18] LABS: PROMETHEUS IBD SNP SEE SEPARATE REPORT
== END ==
LOC: M LABDRAW1 13:37
DX: Z12.11 Encounter for screening for malignant neoplasm of colon (principal); R93.3 Abnormal findings on diagnostic imaging of other parts of digestive tract; R10.31 Right lower quadrant pain

== ENCOUNTER → 2018-05-15 | Outpatient (CLI) | payer OTHER | LOC: M PAIN 11:45 | DX: M47.816 Spondylosis without myelopathy or radiculopathy, lumbar region (principal); M47.817 Spondylosis without myelopathy or radiculopathy, lumbosacral region; E11.9 Type 2 diabetes mellitus without complications; G43.909 Migraine, unspecified, not intractable, without status migrainosus; G61.0 Guillain-Barre syndrome; I10 Essential (primary) hypertension; E78.00 Pure hypercholesterolemia, unspecified; Z79.82 Long term (current) use of aspirin; Z79.84 Long term (current) use of oral hypoglycemic drugs; Z79.891 Long term (current) use of opiate analgesic; Z79.899 Other long term (current) drug therapy; Z87.820 Personal history of traumatic brain injury; Z86.79 Personal history of other diseases of the circulatory system | CPT/HCPCS: G0463 ==

== ENCOUNTER 2018-05-29 12:38 | Emergency (ER) | payer BC ==
[2018-05-29] MEDS: MORPHINE 4 MG/ML 1ML VIAL/SYRINGE (J2270) IV (13:44)
[2018-05-29] MEDS: ONDANSETRON 4MG/2ML VIAL (J2405) IV (13:44)
[2018-05-29] MEDS: NS 1,000 ML IV (13:45)
[2018-05-29 13:50] LABS: BASO % 0.3 % (0.0-1.0); EOS # 0.1 10^3/uL (0.0-0.50); EOS % 0.8 % (0.0-3.0); HEMATOCRIT 42.5 % (42.0-52.0); HEMOGLOBIN 14.9 g/dl (13.5-17.5); IMMATURE GRANULOCYTE % 0.2 % (0-3.0); LYMPH # 1.4 10^3/uL (1.5-4.5); LYMPH % 20.4 % (24.0-44.0); MEAN CORPUSCULAR HEMOGLOBIN 29.4 pg (27.0-33.0); MEAN CORPUSCULAR HGB CONC 35.1 g/dl (32.0-36.5); MEAN CORPUSCULAR VOLUME 83.8 fl (80.0-96.0); MONO # 0.4 10^3/uL (0.0-0.8); MONO % 5.7 % (0.0-5.0); NEUTROPHILS # 4.8 10^3/uL (1.8-7.7); NEUTROPHILS % 72.6 % (36.0-66.0); PLATELET COUNT, AUTOMATED 217 10^3/uL (150-450); RED BLOOD COUNT 5.07 10^6/uL (4.30-6.10); RED CELL DISTRIBUTION WIDTH 12.1 % (11.5-14.5); WHITE BLOOD COUNT 6.6 10^3/uL (4.0-10.0)
[2018-05-29 14:05] LABS: KETONE, URINE AUTO RFX NEGATIVE (NEGATIVE); LEUKOCYTE ESTERASE UR AUTO RFX NEGATIVE (NEGATIVE); NITRITE, URINE AUTO RFX NEGATIVE (NEGATIVE); RBC, URINE AUTO RFX 0 /HPF (0-3); SPECIFIC GRAVITY UR AUTO RFX 1.039 (1.002-1.035); SQUAM EPITHELIAL CELL UR AURFX 0 /HPF (0-6); WBC, URINE AUTO RFX 0 /HPF (0-3)
[2018-05-29 14:12] LABS: ANION GAP 7 MEQ/L (8-16); BLOOD UREA NITROGEN 14 MG/DL (7-18); CALCIUM LEVEL 8.8 MG/DL (8.5-10.1); CARBON DIOXIDE LEVEL 28 MEQ/L (21-32); CHLORIDE LEVEL 109 MEQ/L (98-107); GLOMERULAR FILTRATION RATE > 60.0 (>56); GLUCOSE, FASTING 169 MG/DL (70-100); POTASSIUM SERUM 3.7 MEQ/L (3.5-5.1); SODIUM LEVEL 144 MEQ/L (136-145)
[2018-05-29 14:24] LABS: LACTIC ACID SEPSIS PROTOCOL 1.5 MMOL/L (0.4-2.0)
[2018-05-29] MEDS: MORPHINE 2 MG/ML 1ML SYRINGE (J2270) IV (14:52)
== END 2018-05-29 15:12 | disposition home or self-care (01) ==
LOC: M ED 12:38
DX: K40.90 Unilateral inguinal hernia, without obstruction or gangrene, not specified as recurrent (principal); E11.9 Type 2 diabetes mellitus without complications; I10 Essential (primary) hypertension; K21.9 Gastro-esophageal reflux disease without esophagitis; G61.0 Guillain-Barre syndrome; M54.9 Dorsalgia, unspecified; F32.9 Major depressive disorder, single episode, unspecified; N40.0 Benign prostatic hyperplasia without lower urinary tract symptoms; Z87.442 Personal history of urinary calculi; K52.9 Noninfective gastroenteritis and colitis, unspecified; Z98.84 Bariatric surgery status; Z98.61 Coronary angioplasty status; Z79.82 Long term (current) use of aspirin; Z79.84 Long term (current) use of oral hypoglycemic drugs; Z79.899 Other long term (current) drug therapy
CPT/HCPCS: J2270

== ENCOUNTER → 2018-06-09 | Outpatient (CLI) | payer BC, OTHER ==
[~2018-06-09] MED LIST changes: -BUPIVACAINE HCL 0.25% 30 ML VIAL As Ordered; +E-Z-PAQUE 96% w/w SUSP 176GM BTL As Ordered; -ISOVUE-M 300 61% 15ML VIAL (Q9967) As Ordered; -LIDOCAINE 1% SDV INJ 30 ML VIAL As Ordered; -TRIAMCINOLONE ACETONIDE SUSP 40 MG/ML VIAL (J3301) As Ordered; -diazePAM 5 MG TAB As Ordered; -oxyCODONE 5MG TAB As Ordered
== END ==
LOC: M RAD 07:41
DX: R10.31 Right lower quadrant pain (principal); R10.84 Generalized abdominal pain; R19.7 Diarrhea, unspecified; R79.9 Abnormal finding of blood chemistry, unspecified; R93.3 Abnormal findings on diagnostic imaging of other parts of digestive tract; R11.0 Nausea; R63.0 Anorexia
CPT/HCPCS: 74250

== ENCOUNTER 2018-06-24 09:01 | Day surgery (SDC) | payer BC, OTHER ==
[2018-06-24] MEDS: LR 1,000 ML IV (10:11)
[2018-06-24 10:19] LABS: BEDSIDE GLUCOSE 173 MG/DL (70-105)
[2018-06-24] MEDS ORDERED: ROCURONIUM BROMIDE 50 MG/5 ML VIAL As Ordered (10:37)
[2018-06-24] MEDS ORDERED: PROPOFOL 200 MG/20 ML VIAL As Ordered (10:37)
[2018-06-24] MEDS ORDERED: LIDOCAINE 2% INJ 100 MG/5 ML SDV (FOR ANES.) As Ordered (10:38)
[2018-06-24] MEDS ORDERED: KETOROLAC 60 MG/2 ML VIAL (J1885) As Ordered (10:38)
[2018-06-24] MEDS ORDERED: dexameTHASONE 4 MG/ML 1ML VIAL (J1100) As Ordered (10:38)
[2018-06-24] MEDS ORDERED: fentaNYL 250 MCG/5 ML INJECTION (J3010) As Ordered (10:38)
[2018-06-24] MEDS ORDERED: ONDANSETRON 4MG/2ML VIAL (J2405) As Ordered (10:38)
[2018-06-24] MEDS ORDERED: MIDAZOLAM INJ 2 MG/2 ML VIAL (J2250) As Ordered (10:39)
[2018-06-24] MEDS: ceFAZolin SOD 1 GM in D5W MINI-BAG PLUS 50 ML IV (10:59)
[2018-06-24] MEDS ORDERED: HYDROmorphone HCL 2 MG/ML 1ML VIAL (J1170) As Ordered (11:36)
[2018-06-24] MEDS: BUPIVACAINE/EPIN 0.25% 30 ML VIAL As Ordered (12:40)
[2018-06-24] MEDS ORDERED: LABETALOL HCL 100 MG/20 ML VIAL As Ordered (12:51)
[2018-06-24] MEDS ORDERED: fentaNYL 100 MCG/2 ML INJECTION (J3010) IV (13:15)
[2018-06-24] MEDS ORDERED: ONDANSETRON 4MG/2ML VIAL (J2405) IV ×2 (13:15→13:30)
[2018-06-24] MEDS ORDERED: LR 1,000 ML IV (13:15)
[2018-06-24] MEDS ORDERED: MORPHINE 4 MG/ML 1ML VIAL/SYRINGE (J2270) IV (13:30)
[2018-06-24] MEDS ORDERED: NS 1,000 ML IV (13:30)
[2018-06-24] MEDS ORDERED: NORCO, ANEXSIA 5/325MG TABLET (HYDROcodone/ACETAMINOPHEN) PO (13:30)
[2018-06-24] MEDS: PERCOCET 5MG/325MG TAB PO (13:37)
== END 2018-06-24 15:15 | disposition home or self-care (01) ==
LOC: M SDC 09:01
DX: K40.90 Unilateral inguinal hernia, without obstruction or gangrene, not specified as recurrent (principal); I25.10 Atherosclerotic heart disease of native coronary artery without angina pectoris; E11.9 Type 2 diabetes mellitus without complications; I10 Essential (primary) hypertension; G47.30 Sleep apnea, unspecified; M10.9 Gout, unspecified; K21.9 Gastro-esophageal reflux disease without esophagitis; F32.9 Major depressive disorder, single episode, unspecified; F41.9 Anxiety disorder, unspecified; N40.0 Benign prostatic hyperplasia without lower urinary tract symptoms; Z79.899 Other long term (current) drug therapy; Z98.84 Bariatric surgery status
CPT/HCPCS: 49650

== ENCOUNTER → 2018-07-16 | Outpatient (CLI) | payer BC | LOC: M PAIN 08:45 | DX: M47.816 Spondylosis without myelopathy or radiculopathy, lumbar region (principal); M47.817 Spondylosis without myelopathy or radiculopathy, lumbosacral region; E11.9 Type 2 diabetes mellitus without complications; G43.909 Migraine, unspecified, not intractable, without status migrainosus; I10 Essential (primary) hypertension; K21.9 Gastro-esophageal reflux disease without esophagitis; E78.00 Pure hypercholesterolemia, unspecified; Z79.82 Long term (current) use of aspirin; Z79.84 Long term (current) use of oral hypoglycemic drugs; Z79.891 Long term (current) use of opiate analgesic; Z79.899 Other long term (current) drug therapy; Z86.69 Personal history of other diseases of the nervous system and sense organs; Z86.79 Personal history of other diseases of the circulatory system; Z87.39 Personal history of other diseases of the musculoskeletal system and connective tissue; Z98.84 Bariatric surgery status | CPT/HCPCS: G0463 ==

== ENCOUNTER → 2018-08-05 | Outpatient (CLI) | payer BC ==
[~2018-08-05] MED LIST changes: +BUPIVACAINE HCL 0.25% 30 ML VIAL As Ordered; -E-Z-PAQUE 96% w/w SUSP 176GM BTL As Ordered; +ISOVUE-M 300 61% 15ML VIAL (Q9967) As Ordered; +LIDOCAINE 1% SDV INJ 30 ML VIAL As Ordered; +TRIAMCINOLONE ACETONIDE SUSP 40 MG/ML VIAL (J3301) As Ordered; +diazePAM 5 MG TAB As Ordered; +oxyCODONE 5MG TAB As Ordered
[2018-08-05 10:10] LABS: BEDSIDE GLUCOSE 116 MG/DL (70-105)
== END ==
LOC: M PAIN 08:45
DX: M47.816 Spondylosis without myelopathy or radiculopathy, lumbar region (principal); M47.817 Spondylosis without myelopathy or radiculopathy, lumbosacral region; E11.9 Type 2 diabetes mellitus without complications; G43.909 Migraine, unspecified, not intractable, without status migrainosus; I48.0 Paroxysmal atrial fibrillation; I10 Essential (primary) hypertension; K21.9 Gastro-esophageal reflux disease without esophagitis; E78.00 Pure hypercholesterolemia, unspecified; M10.9 Gout, unspecified; N40.0 Benign prostatic hyperplasia without lower urinary tract symptoms; N52.9 Male erectile dysfunction, unspecified; Z79.82 Long term (current) use of aspirin; Z79.84 Long term (current) use of oral hypoglycemic drugs; Z79.899 Other long term (current) drug therapy; Z79.891 Long term (current) use of opiate analgesic
CPT/HCPCS: J3301

== ENCOUNTER → 2018-09-02 | Outpatient (CLI) | payer BC | LOC: M PAIN 09:45 | DX: M51.16 Intervertebral disc disorders with radiculopathy, lumbar region (principal); M46.96 Unspecified inflammatory spondylopathy, lumbar region; E11.9 Type 2 diabetes mellitus without complications; G43.909 Migraine, unspecified, not intractable, without status migrainosus; I10 Essential (primary) hypertension; K21.9 Gastro-esophageal reflux disease without esophagitis; E78.00 Pure hypercholesterolemia, unspecified; G61.0 Guillain-Barre syndrome; Z79.82 Long term (current) use of aspirin; Z79.84 Long term (current) use of oral hypoglycemic drugs; Z79.891 Long term (current) use of opiate analgesic; Z79.899 Other long term (current) drug therapy; Z98.84 Bariatric surgery status; Z87.39 Personal history of other diseases of the musculoskeletal system and connective tissue; Z86.79 Personal history of other diseases of the circulatory system | CPT/HCPCS: G0463 ==

== ENCOUNTER 2018-09-03 12:55 | Emergency (ER) | payer OTHER, BC ==
[2018-09-03] MEDS: LIDOCAINE 2% MDV 20 ML VIAL SC (12:45)
[2018-09-03] MEDS: ceFAZolin 1GM INJ (J0690 PER 500MG) IM (14:04)
[2018-09-03] MEDS: tiZANidine 4 MG TAB PO (14:04)
[2018-09-03] MEDS: ADACEL/BOOSTRIX VACCINE (DIPHTH/PERTUSS/ACELL/TETANUS)0.5ML SYR (90715) IM (14:05)
[2018-09-03] MEDS: NORCO, ANEXSIA 5/325MG TABLET (HYDROcodone/ACETAMINOPHEN) PO (14:55)
== END 2018-09-03 14:59 | disposition home or self-care (01) ==
LOC: M ED 12:55
DX: S62.635B Displaced fracture of distal phalanx of left ring finger, initial encounter for open fracture (principal); W23.0XXA Caught, crushed, jammed, or pinched between moving objects, initial encounter; Y92.59 Other trade areas as the place of occurrence of the external cause; Y99.0 Civilian activity done for income or pay; I10 Essential (primary) hypertension; E11.9 Type 2 diabetes mellitus without complications; E78.9 Disorder of lipoprotein metabolism, unspecified; G61.0 Guillain-Barre syndrome; Z98.84 Bariatric surgery status; Z79.899 Other long term (current) drug therapy; Z79.82 Long term (current) use of aspirin; Z79.84 Long term (current) use of oral hypoglycemic drugs
CPT/HCPCS: J0690

== ENCOUNTER → 2018-09-03 | Outpatient (CLI) | payer BC | LOC: M RAD 07:44 | DX: R10.11 Right upper quadrant pain (principal); R11.2 Nausea with vomiting, unspecified | CPT/HCPCS: J2805 ==

== ENCOUNTER → 2018-09-23 | Outpatient (CLI) | payer BC ==
[~2018-09-23] MED LIST changes: -BUPIVACAINE HCL 0.25% 30 ML VIAL As Ordered; -TRIAMCINOLONE ACETONIDE SUSP 40 MG/ML VIAL (J3301) As Ordered; -diazePAM 5 MG TAB As Ordered; +methylPREDNISolone SUSP 40 MG/ML (DEPO-medrol) VIAL (J1030) As Ordered; -oxyCODONE 5MG TAB As Ordered
== END ==
LOC: M PAIN 09:15
DX: G89.29 Other chronic pain (principal); M51.16 Intervertebral disc disorders with radiculopathy, lumbar region; E11.9 Type 2 diabetes mellitus without complications; G43.909 Migraine, unspecified, not intractable, without status migrainosus; I10 Essential (primary) hypertension; E78.00 Pure hypercholesterolemia, unspecified; G61.0 Guillain-Barre syndrome; Z79.82 Long term (current) use of aspirin; Z79.899 Other long term (current) drug therapy; Z98.84 Bariatric surgery status; Z86.79 Personal history of other diseases of the circulatory system; Z87.39 Personal history of other diseases of the musculoskeletal system and connective tissue
CPT/HCPCS: J1030

== ENCOUNTER → 2018-11-11 | Outpatient (CLI) | payer BC ==
[~2018-11-11] MED LIST changes: +/BISO10TA OR; +/INSULEV; +/PANT40TA; +/WARF3TA; +/WARF3TA OR; +/WARF5TA; +/WARF5TA OR; +ACET-683 PO; +ACTO15TA PO; +ALDA25TA2 PO; +AMLO2.5T3 PO; +AMLO5TAB6 PO; +ASPI325T PO; +ASPI81TA24 PO; +ASPI81TA3 OR; +ASPI81TA45 PO; +ASPI81TA83; +ASPI81TA85 PO; +ASPI81TAEC PO; +ATEN50TA2; +ATOR1TAB19 PO; +ATOR1TAB21 PO; +AUGM875T28 PO; +AVOD0.5C PO; +BISO5TAB5 PO; +CALCCAP PO; +CALCIUM W/VIT D PO; +CELE10TA; +CELE10TA OR; +CELE10TA PO; +CELE20TA PO; +CHLO125TA PO; +CIPR100T4 OR; +CITRTAB10 PO; +COLA100C5 PO; +COLC1CAP PO; +COZA50TA PO; +CYMB60CA3 PO; +D-50TAB PO; +FARX1TAB3 PO; +FLEC1TAB PO; +FLEC50HA PO; +FLECAINIDE PO; +FLOM0.4C39 PO; +GABA-1171 PO; +GABA-843 PO; +GABA-845 PO; +GLUC1000; +GLUC1000 OR; +HUMA75VL SC; +HUMALOG; +HYDR25TA6; +HYDR25TA6 OR; +IBUP-1022 PO; +IMIT100T PO; +INSULANT; +INSULIN DETEMIR; +INSULIN SQ; +INVO100T PO; -ISOVUE-M 300 61% 15ML VIAL (Q9967) As Ordered; +ISOVUE-M 300 61% 15ML VIAL (Q9967) As Ordered ONE; +JANUVIA; +KEFL500C17 PO; +KLOR20TA42 PO; +LEVA750T7 PO; +LIDO5TD TD; -LIDOCAINE 1% SDV INJ 30 ML VIAL As Ordered; +LIDOCAINE 1% SDV INJ 30 ML VIAL As Ordered ONE; +LIPI20TA PO; +LISI20TA5; +LISI20TA5 OR; +LISI40TA OR; +MAGN1TAB25 PO; +MAGN500T2 OR; +MAXA10TA14 PO; +MAXA10TA17; +MAXA10TA17 OR; +MELA3TAB49 PO; +METF-415 PO; +METF-877 PO; +METF10004 PO; +MILK120011 PO; +MIRA3350 PO; +MOBI4TAB PO; +MULTCAP PO; +MYRB50TA; +Metformin PO; +NAPR250T4 PO; +NEUR100C PO; +NITR4TASL SL; +NORC1TAB4 PO; +NORCOTAB PO; +NORV5TAB OR; +NOVOLOG100 MG/ML; +OMEP40CA2 PO; +PERC5TAB12 PO; +PERC5TAB8; +POTA75TA PO; +PRED20TA PO; +PRIL40CA PO; +PRIN20TA3; +PROM25TA12 PO; +PROP120C OR; +PROP80CA PO; +PROS5TAB PO; +RIBO100C OR; +SENO8.6T5 PO; +SING10TA32 PO; +SOMA350T PO; +SPIR1TAB34 PO; +TIZA2CAP PO; +TOPI50TA; +TRUL10IN SC; +TUSS1SUS2 PO; +TYLE167L PO; +TYLE325T5 PO; +ULTR50TA8 PO; +VALS1TAB47 PO; +VICO5TAB OR; +VITA-193 PO; +VITA500046 PO; +VITA500T3 PO; +VITA500T53 PO; +VITACAP9 PO; +VITMTA PO; +VOLT1GEL15 TD; +ZOCO40TA; +ZOCO40TA OR; +[UNRECOGNIZED DRUG - OTHER]; +[UNRECOGNIZED DRUG - OTHER] PO; +diazePAM 5 MG TAB As Ordered ONE; +januvia PO; -methylPREDNISolone SUSP 40 MG/ML (DEPO-medrol) VIAL (J1030) As Ordered; +methylPREDNISolone SUSP 40 MG/ML (DEPO-medrol) VIAL (J1030) As Ordered ONE; +oxyCODONE 5MG TAB As Ordered ONE; +tylenol #3 PO
--- NOTE | 2018-11-11 16:16 | REP ---
Cervical spine: Limited study four views. History: Cervical epidural steroid injection for pain. 18 seconds of fluoroscopy time is reported. Findings: A sequence of four last image hold fluoroscopically obtained spot radiographs of the cervicothoracic junction document needle position and contrast injection associated with injection procedure. Electronically Signed by Nick Stanley MD 11/11/2018 06:56 P
--- NOTE | 2018-11-28 23:24 | ECWPNPC ---
PATIENT NAME: HAI DAIGLE : 1965 GENDER: MALE VISIT DATE: 11/11/2018 DISCHARGE DATE: 11/11/18 1548 VISIT LOCKED DATE TIME: PHYSICIAN: BONY ANTOINE MD RESOURCE: BONY ANTOINE MD REASON FOR APPOINTMENT 1. KILO HISTORY OF PRESENT ILLNESS HISTORY OF PRESENT ILLNESS: PAIN THE PATIENT DESCRIBES THE PAIN... FALL RISK SCREENING: SCREENING :NO FALLS IN THE PAST YEAR CURRENT MEDICATIONS TAKING AMLODIPINE BESYLATE 5 MG TABLET 1 TABLET ORALLY ONCE A DAY, NOTES: 11/11/18 AM TAKING ASPIR-81 81 MG TABLET DELAYED RELEASE 1 TABLET ORALLY ONCE A DAY, NOTES: 11/11/18 AM TAKING CITRACAL PLUS 400MG TABLET 2 TABS ORALLY AT BEDTIME, NOTES: 11/11/18 AM TAKING CYMBALTA 60 MG CAPSULE DELAYED RELEASE PARTICLES 1 CAPSULE ORALLY BEFORE BEDTIME, NOTES: 11/11/18 AM TAKING FLECAINIDE ACETATE 50 MG TABLET 1 TABLET ORALLY EVERY 12 HRS, NOTES: 11/11/18 AM TAKING VITAMIN D3 MAXIMUM STRENGTH 5000 UNIT CAPSULE 1 CAPSULE ORALLY DAILY, NOTES: 11/11/18 AM TAKING VITAMIN B-12 500 MCG TABLET 1 TABLET ORALLY ONCE A DAY, NOTES: 11/11/18 AM TAKING TRULICITY 0.75 MG/0.5ML SOLUTION PEN-INJECTOR SUBCUTANEOUS WEEKLY, NOTES: TAKING TIZANIDINE HCL 2 MG TABLET 1 TABLET NEEDED ORALLY EVERY 8 HRS, NOTES: 11/11/18 AM TAKING PRILOSEC 40 MG CAPSULE DELAYED RELEASE 1 CAPSULE ORALLY ONCE A DAY, NOTES: 11/11/18 AM TAKING POTASSIUM BICARB & CHLORIDE 20 MEQ PACKET 2 TABS ORALLY TWICE A DAY, NOTES: 11/11/18 AM TAKING METFORMIN HCL 1000 MG TABLET 1 TABLET WITH MEALS ORALLY TWICE DAILY, NOTES: 11/10/18 TAKING PROBIOTIC 1 CAPSULE 1 CAP ORALLY DAILY, NOTES: 11/11/18 AM TAKING COMPLETE MULTI-VITAMIN - TABLET CHEWABLE ORALLY , NOTES: 11/11/18 AM TAKING MAGNESIUM 400 MG CAPSULE 1 CAP ORALLY BID, NOTES: 11/11/18 AM TAKING GABAPENTIN 100 MG CAPSULE 1 CAPSULE ORALLY THREE TIMES A DAY, NOTES: 11/11/18 AM TAKING BISOPROLOL FUMARATE 5 MG TABLET 1 TABLET ORALLY ONCE A DAY, NOTES: 11/11/18 AM TAKING LIPITOR 10 MG TABLET 1 TABLET ORALLY ONCE A DAY, NOTES: 11/11/18 AM TAKING MULTI FOR HIM TABLET 2 TABS ORALLY DAILY, NOTES: 11/11/18 AM TAKING JARDIANCE 10 MG TABLET 1 TABLET ONCE A DAY, NOTES: 11/10/18 TAKING TAMSULOSIN HCL 0.4 MG CAPSULE 1 CAPSULE ONCE A DAY, NOTES: 11/11/18 AM TAKING SOMA 350 MG TABLET 1 TABLET NEEDED ORALLY FOUR TIMES A DAY PRN, NOTES: AM TAKING PERCOCET 5-325 MG TABLET 1 TO 2 TAB ORALLY Q6H PRN MDD 4, NOTES: 11/11/18 AM TAKING GABAPENTIN 100 MG CAPSULE 1 CAPSULE ORALLY IN AM, NOTES: 11/11/18 AM NOT-TAKING MELATONIN 5 MG TABLET 1 TABLET AT BEDTIME NEEDED WITH FOOD ORALLY ONCE A DAY, NOTES: NONE RECTLY NOT-TAKING COLCHICINE 0.6 MG CAPSULE ORALLY DIRECTED, NOTES: NONE RECENTLY MEDICATION LIST REVIEWED AND RECONCILED WITH THE PATIENT PAST MEDICAL HISTORY DIABETES MIGRAINES PAF - INTERMITTENT A-FIB HTN GERD HIGH CHOLESTEROL GUILLAIN BARRE PNEUMONIA ILIEITIS GOUT A FIB WITH RVR DIVERTICULITIS BPH ED ILEITIS BROKEN LEFT RING FINGER ALLERGIES N.K.D.A. SURGICAL HISTORY BOWEL RESECTION 2013 RIGHT KNEE ARTHROSCOPY 2013 GASTRIC BYPASS RIGHT INGUINAL HERNIA REPAIR 06/24/18 FAMILY HISTORY FATHER: , DIAGNOSED WITH DIABETES, CANCER MOTHER: , DIAGNOSED WITH DIABETES, HYPERTENSION, OTHER SIBLINGS: ALIVE 4 BROTHER(S) , 2 SISTER(S) . 1 SON(S) , 1 DAUGHTER(S) - HEALTHY. 1 SISTER . 1 SISTER HAS ALOT OF MEDICAL ISSUES ALSO. SOCIAL HISTORY GENERAL: TOBACCO USE ARE YOU A:NONSMOKER ALCOHOL SCREENING DID YOU HAVE A DRINK CONTAINING ALCOHOL IN THE PAST YEAR?YES HOW OFTEN DID YOU HAVE SIX OR MORE DRINKS ON ONE OCCASION IN THE PAST YEAR?NEVER (0 POINTS) HOW MANY DRINKS DID YOU HAVE ON A TYPICAL DAY WHEN YOU WERE DRINKING IN THE PAST YEAR?1 OR 2 (0 POINTS) HOW OFTEN DID YOU HAVE A DRINK CONTAINING ALCOHOL IN THE PAST YEAR?MONTHLY OR LESS (1 POINT) POINTS1 INTERPRETATIONNEGATIVE RECREATIONAL DRUG USE DRUG USE?NO CAFFEINE CAFFEINE USE?YES 1-2 SODA/DAY SEXUAL HX HAD SEX IN THE LAST 12 MONTHS (VAGINAL, ORAL, OR ANAL)?NO HAVE YOU EVER HAD AN STD?NO SYNAGOGUE [id number] OTHER LANGUAGE LANGUAGES SPOKEN:DIVEHI EDUCATION LEVEL OF EDUCATION:FINISHED HIGH SCHOOL LEARNING BARRIERS / SPECIAL NEEDS CHANGE FROM LAST VISIT?NO BARRIERS TO LEARNING?NO HEARING IMPAIRED?NO VISION IMPAIRED?YES COGNITIVELY IMPAIRED?NO :CORRECTIVE LENSES READINESS TO LEARN?YES LEARNING PREFERENCES?NO LEARNING CAPABILITIES PRESENT?YES EMOTIONAL BARRIERS?NO SPECIAL DEVICES?NO TIMBER SPRINKLER NEEDED?NO DOMESTIC VIOLENCE DO YOU FEEL SAFE IN YOUR ENVIRONMENT?YES 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 EXERCISE: WALKS. MARITAL STATUS: . OTHERS AT HOME: SPOUSE. PAIN CLINIC PFS, CLERGY, PUBLIC HEALTH REFERRALS PFS REFERRAL NEEDED?NO CLERGY REFERRAL NEEDED?NO PUBLIC HEALTH REFERRAL NEEDED?NO WAS THE PROVIDER NOTIFIED OF ANY PERTINENT INFO?NO N/A HAS THE PATIENT BEEN EDUCATED REGARDING HIS/HER PLAN OF CARE?YES HAS THE PATIENT BEEN EDUCATED REGARDING PAIN, THE RISK FOR PAIN, THE IMPORTANCE OF EFFECTIVE PAIN MANAGEMENT, AND THE PAIN ASSESSMENT PROCESS?YES ADVANCE DIRECTIVE ADVANCE DIRECTIVE DISCUSSED WITH PATIENT:YES HCP ON FILE HOSPITALIZATION/MAJOR DIAGNOSTIC PROCEDURE SURGERY RELATED GUILLAIN BARRE REQUIRING PLASMAPHERESIS, IVIG, STEROIDS AND INTUBATION [facility] 09/2015 PNEUMONIA, ILEITIS 02/2018 REVIEW OF SYSTEMS REVIEWED BY: PROVIDER: . CONSTITUTIONAL: ANY CHANGE IN YOUR MEDICAL CONDITION? NO . CHILLS NO . FEVER NO . INFECTION: DO YOU HAVE NEW INFECTIONS? NO . DO YOU HAVE HISTORY OF MRSA? NO . MUSCULOSKELETAL: ANY NEW PATTERNS OF PAIN OR NUMBNESS? NO . GASTROENTEROLOGY: ANY NEW CHANGE IN BOWEL CONTROL? NO . GENITOURINARY: ANY NEW CHANGE IN BLADDER CONTROL? NO . IS THERE A CHANCE YOU COULD BE ? NO . HEMATOLOGY/LYMPH: DO YOU TAKE ANY BLOOD THINNERS? (FOR EXAMPLE- COUMADIN, PLAVIX, AGGRENOX, PLATEL, PRADAXA, OR XARELTO) NO . WHEN WAS YOUR LAST DOSE? DATE: TIME: . NEUROLOGY: HAVE YOU FALLEN IN THE PAST 6 MONTHS? NO . ANY NEW EXTREMITY NUMBNESS OR WEAKNESS? YES, BILAT ARMS NUMBNESS . CARDIOLOGY: DO YOU HAVE A PACEMAKER OR DEFIBRILLATOR? NO . RESPIRATORY: HAVE YOU BEEN SICK IN THE PAST WEEK? NO . FEVER NO . FLU LIKE SYMPTOMS? NO . COUGH NO . INTEGUMENTARY: DO YOU HAVE ANY RASHES OR OPEN SORES? NO . ALLERGIC/IMMUNO: ARE YOU ALLERGIC TO SHELLFISH OR IV DYE? NO . ANY NEW ALLERGIES? NO . PSYCHIATRIC: DO YOU HAVE THOUGHTS OF HURTING YOURSELF OR SOMEONE ELSE? NO . ARE YOU ABUSED, NEGLECTED, OR IN AN UNSAFE ENVIRONMENT? NO . ENDOCRINOLOGY: ARE YOU DIABETIC? YES . OTHER: DO YOU NEED ANY PRESCRIPTIONS? NO . IF YES, PLEASE LIST: ____ . ANY NEW PROBLEMS WITH YOUR MEDICATIONS? NO . WHEN DID YOU LAST EAT? 11/12/18 0800 . WHEN DID YOU LAST DRINK? 11/12/18 1100 . WHAT DID YOU LAST DRINK? WATER . NAME OF PERSON DRIVING YOU HOME? MADDY . DO YOU HAVE ANY OTHER QUESTIONS OR CONCERNS NO . VITAL SIGNS WT 186.0 LBS, HT 70 IN, BMI 26.69 INDEX, BP 169/92 MM HG, HR 90 /MIN, RR 18 /MIN, TEMP 97.2 F, OXYGEN SAT % 100%, SAFE IN ENV? (Y/N) YES, NA INITIALS AW 1331, REVIEWED BY: SUKHJINDER. ASSESSMENTS CERVICAL DISC DISORDER WITH RADICULOPATHY OF CERVICAL REGION - M50.10 (PRIMARY) PROCEDURES PN CERVICAL EPIDURAL PRE PROCEDURE DIAGNOSIS CERVICAL DISC DISORDER WITH RADICULOPATHY POST PROCEDURE DIAGNOSIS CERVICAL DISC DISORDER WITH RADICULOPATHY PROCEDURE CERVICAL EPIDURAL STEROID INJECTION UNDER FLUOROSCOPIC GUIDANCE SURGEON DR. BONY ANTOINE DRAFTER ELECTRICAL NONE ANESTHESIA LOCAL PRE PROCEDURE NOTE THE PATIENT HAS A HISTORY OF CHRONIC CERVICAL PAIN. I EVALUATE THE PATIENT AND REVIEWED THE CHART. I WENT OVER THE RISKS, ALTERNATIVES, AND BENEFITS ASSOCIATED WITH THIS PROCEDURE. THE PATIENT WOULD LIKE TO PROCEED AND GIVE CONSENT TO PERFORMED THE PROCEDURE. THE PATIENT DENIES UNEXPLAINABLE WEIGHT LOSS, FEVER, CHILLS, OR NEW CHANGES IN URINARY OR BOWEL CONTROL DESCRIPTION OF PROCEDURE THE PATIENT WAS BROUGHT TO THE PROCEDURE ROOM AND PLACED IN THE PRONE POSITION. THE CERVICOTHORACIC AREA WAS CLEANED WITH BETADINE SOLUTION AND DRAPED ASEPTICALLY. THE PROCEDURE WAS DONE UNDER STERILE CONDITIONS. I CHECKED LATERALITY AND THE LEVEL WHERE THE PROCEDURE WAS GOING TO BE PERFORMED WITH THE PATIENT AND THE SUPPORTING STAFF AT THE MOMENT OF THE TIME OUT IN THE PROCEDURE ROOM. UNDER FLUOROSCOPIC GUIDANCE, THE TARGET WAS SELECTED AT THE INTERLAMINAR LEVEL OF C7-T1. LIDOCAINE WAS USED TO NUMB THE SKIN AND THE SUBCUTANEOUS TISSUE BELOW IT. EPIDURAL TUOHY NEEDLE 17-GAUGE WAS ADVANCED UNDER FLUOROSCOPIC GUIDANCE AND FOLLOWING PATIENT FEEDBACK UNTIL THE EPIDURAL SPACE WAS REACHED 6 CM DEEP INTO THE SKIN BY THE LOSS OF RESISTANCE TECHNIQUE. ISOVUE M DYE 30%, 0.25 ML, WAS INJECTED SHOWING ADEQUATE SPREAD OF THE DYE. THEN, A SOLUTION OF 3 ML OF NORMAL SALINE WITH DEPO-MEDROL 60 MG WAS INJECTED SLOWLY FOLLOWING PATIENT FEEDBACK. THERE WAS NO EVIDENCE OF BLOOD, PARESTHESIA OR CEREBROSPINAL FLUID DURING THE PROCEDURE. THE PATIENT WAS SENT TO THE RECOVERY ROOM. THE PATIENT WAS MOVING THE EXTREMITIES AND DOING WELL. THERE WAS NO COMPLICATION DURING THE PROCEDURE. FLUOROSCOPY TIME WAS 18 SECONDS POST PROCEDURE NOTE THE PATIENT WILL BE SEEN IN A FOLLOW UP IN THE NEXT FEW WEEKS. INSTRUCTIONS WERE GIVEN, QUESTIONS WERE ANSWERED, AND THE PATIENT EXPRESSED UNDERSTANDING AND AGREES WITH THE PLAN. I, WILBER MENDOZA, DOCUMENTED THE ABOVE INFORMATION ACTING A SCRIBE FOR DR. ANTOINE. I HAVE REVIEWED THE ABOVE DOCUMENT, WRITTEN BY WILBER MENDOZA SCRIBOlaf AND I VERIFY THAT IT IS ACCURATE. DIAGNOSTIC IMAGING [facility] FLUORO GUIDE SPINE INJECTION (PAIN)[id number] PROCEDURE CODES 6045F RADXPS IN END [id number] PXD [id number] CERVICAL/THORACIC W/ IMAGING DISPOSITION & COMMUNICATION FOLLOW UP 3 WEEKS ELECTRONICALLY SIGNED BY BONY ANTOINE MD, MD ON 11/28/2018 AT 08:08 PM EST DISCLAIMER : THIS IS A VISIT SUMMARY EXTRACTED FROM THE [employer] ([employer] CHART. IT IS NOT A COPY OF THE [employer] PROGRESS NOTE. MTDD
== END ==
LOC: M PAIN 13:30
PROVIDERS: ATTEND Anesthesiology
DX: G89.29 Other chronic pain (principal); M50.10 Cervical disc disorder with radiculopathy, unspecified cervical region; E11.9 Type 2 diabetes mellitus without complications; I10 Essential (primary) hypertension; E78.00 Pure hypercholesterolemia, unspecified; Z79.82 Long term (current) use of aspirin; Z79.84 Long term (current) use of oral hypoglycemic drugs; Z79.899 Other long term (current) drug therapy; Z98.84 Bariatric surgery status; Z86.69 Personal history of other diseases of the nervous system and sense organs; Z86.79 Personal history of other diseases of the circulatory system; Z87.39 Personal history of other diseases of the musculoskeletal system and connective tissue
CPT/HCPCS: 62321; J1030; Q9967

== ENCOUNTER → 2018-11-30 | Outpatient (REF) | payer BC ==
[~2018-11-30] MED LIST changes: -ISOVUE-M 300 61% 15ML VIAL (Q9967) As Ordered ONE; -LIDOCAINE 1% SDV INJ 30 ML VIAL As Ordered ONE; -diazePAM 5 MG TAB As Ordered ONE; -methylPREDNISolone SUSP 40 MG/ML (DEPO-medrol) VIAL (J1030) As Ordered ONE; -oxyCODONE 5MG TAB As Ordered ONE
[2018-11-30 20:08] LABS: AMYLASE 20 U/L (25-115); LIPASE 201 U/L (73-393)
== END ==
LOC: M LAB REF 18:21
PROVIDERS: ATTEND Internal Medicine
DX: R10.13 Epigastric pain (principal)

== ENCOUNTER → 2018-12-01 | Outpatient (CLI) | payer BC ==
[~2018-12-01] MED LIST changes: +ALBU83IN NEB; +BENZ200C70 PO; +BUDE3CAP PO; +JARD1TAB PO; +LOSA50TA88 PO; +MELA5TAB17 PO; +METF-723 PO; +METO5TAB2 PO; +ONDA8TAB8 PO; +OXYC1TAB23 PO; +PROAAER10 INH; +PROB250C PO; +SUCR1TA PO; +TESS100C PO; +TOPA1TAB PO
--- NOTE | 2018-12-12 00:28 | ECWPNPC ---
PATIENT NAME: HAI DAIGLE : 1965 GENDER: MALE VISIT DATE: 12/01/2018 DISCHARGE DATE: 12/01/18 1018 VISIT LOCKED DATE TIME: PHYSICIAN: BRITT LANCASTER RESOURCE: BRITT LANCASTER REASON FOR APPOINTMENT 1. 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 PAIN THE PATIENT DESCRIBES THE PAIN... FALL RISK SCREENING: SCREENING :NO FALLS IN THE PAST YEAR CURRENT MEDICATIONS TAKING AMLODIPINE BESYLATE 5 MG TABLET 1 TABLET ORALLY ONCE A DAY TAKING ASPIR-81 81 MG TABLET DELAYED RELEASE 1 TABLET ORALLY EVERY OTHER DAY TAKING CITRACAL PLUS 400MG TABLET 2 TABS ORALLY AT BEDTIME TAKING CYMBALTA 60 MG CAPSULE DELAYED RELEASE PARTICLES 1 CAPSULE ORALLY BEFORE BEDTIME TAKING FLECAINIDE ACETATE 50 MG TABLET 1 TABLET ORALLY EVERY 12 HRS TAKING VITAMIN D3 MAXIMUM STRENGTH 5000 UNIT CAPSULE 1 CAPSULE ORALLY DAILY TAKING VITAMIN B-12 500 MCG TABLET 1 TABLET ORALLY ONCE A DAY TAKING TRULICITY 0.75 MG/0.5ML SOLUTION PEN-INJECTOR SUBCUTANEOUS WEEKLY TAKING TIZANIDINE HCL 2 MG TABLET 1 TABLET NEEDED ORALLY EVERY 8 HRS TAKING PRILOSEC 40 MG CAPSULE DELAYED RELEASE 1 CAPSULE ORALLY ONCE A DAY TAKING POTASSIUM BICARB & CHLORIDE 20 MEQ PACKET 2 TABS ORALLY TWICE A DAY TAKING METFORMIN HCL 1000 MG TABLET 1 TABLET WITH MEALS ORALLY TWICE DAILY TAKING PROBIOTIC 1 CAPSULE 1 CAP ORALLY DAILY TAKING MAGNESIUM 400 MG CAPSULE 1 CAP ORALLY BID TAKING GABAPENTIN 300 MG CAPSULE 1 CAPSULE ORALLY BEFORE BEDTIME TAKING BISOPROLOL FUMARATE 5 MG TABLET 1 TABLET ORALLY ONCE A DAY TAKING LIPITOR 10 MG TABLET 1 TABLET ORALLY ONCE A DAY TAKING MULTI FOR HIM TABLET 2 TABS ORALLY DAILY TAKING JARDIANCE 10 MG TABLET 1 TABLET ONCE A DAY TAKING TAMSULOSIN HCL 0.4 MG CAPSULE 1 CAPSULE ONCE A DAY TAKING PERCOCET 5-325 MG TABLET 1 TO 2 TAB ORALLY Q6H PRN MDD 4 TAKING GABAPENTIN 100 MG CAPSULE 1 CAPSULE ORALLY IN AM TAKING SOMA 350 MG TABLET 1 TABLET NEEDED ORALLY FOUR TIMES A DAY PRN TAKING MELATONIN 5 MG TABLET 1 TABLET AT BEDTIME NEEDED WITH FOOD ORALLY ONCE A DAY, NOTES: NONE RECTLY TAKING ZOFRAN 8 MG TABLET 1 TABLET ORALLY Q 8 HOURS NEEDED TAKING ENTEREG 12 MG CAPSULE 1 CAPSULE ORALLY TAPPERING DOSE NOT-TAKING COLCHICINE 0.6 MG CAPSULE ORALLY DIRECTED, NOTES: NONE RECENTLY DISCONTINUED COMPLETE MULTI-VITAMIN - TABLET CHEWABLE ORALLY DAILY, NOTES: DUPLICATE MEDICATION LIST REVIEWED AND RECONCILED WITH THE PATIENT PAST MEDICAL HISTORY DIABETES MIGRAINES PAF - INTERMITTENT A-FIB HTN GERD HIGH CHOLESTEROL GUILLAIN BARRE PNEUMONIA ILIEITIS GOUT A FIB WITH RVR DIVERTICULITIS BPH ED ILEITIS BROKEN LEFT RING FINGER MULTIPLY GI PROBLEMS ALLERGIES N.K.D.A. SURGICAL HISTORY BOWEL RESECTION 2013 RIGHT KNEE ARTHROSCOPY 2013 GASTRIC BYPASS RIGHT INGUINAL HERNIA REPAIR 06/24/18 FAMILY HISTORY FATHER: , DIAGNOSED WITH DIABETES, CANCER MOTHER: , DIAGNOSED WITH DIABETES, HYPERTENSION, OTHER SIBLINGS: ALIVE 4 BROTHER(S) , 2 SISTER(S) . 1 SON(S) , 1 DAUGHTER(S) - HEALTHY. 1 SISTER . 1 SISTER HAS ALOT OF MEDICAL ISSUES ALSO. SOCIAL HISTORY GENERAL: TOBACCO USE ARE YOU A:NONSMOKER ALCOHOL SCREENING DID YOU HAVE A DRINK CONTAINING ALCOHOL IN THE PAST YEAR?YES HOW OFTEN DID YOU HAVE SIX OR MORE DRINKS ON ONE OCCASION IN THE PAST YEAR?NEVER (0 POINTS) HOW MANY DRINKS DID YOU HAVE ON A TYPICAL DAY WHEN YOU WERE DRINKING IN THE PAST YEAR?1 OR 2 (0 POINTS) HOW OFTEN DID YOU HAVE A DRINK CONTAINING ALCOHOL IN THE PAST YEAR?MONTHLY OR LESS (1 POINT) POINTS1 INTERPRETATIONNEGATIVE RECREATIONAL DRUG USE DRUG USE?NO CAFFEINE CAFFEINE USE?YES 1-2 SODA/DAY SEXUAL HX HAD SEX IN THE LAST 12 MONTHS (VAGINAL, ORAL, OR ANAL)?NO HAVE YOU EVER HAD AN STD?NO HOLINESS [id number] OTHER LANGUAGE LANGUAGES SPOKEN:LITHUANIAN EDUCATION LEVEL OF EDUCATION:FINISHED HIGH SCHOOL LEARNING BARRIERS / SPECIAL NEEDS CHANGE FROM LAST VISIT?NO BARRIERS TO LEARNING?NO HEARING IMPAIRED?NO VISION IMPAIRED?YES COGNITIVELY IMPAIRED?NO :CORRECTIVE LENSES READINESS TO LEARN?YES LEARNING PREFERENCES?NO LEARNING CAPABILITIES PRESENT?YES EMOTIONAL BARRIERS?NO SPECIAL DEVICES?NO CYBER SECURITY CONSULTANT NEEDED?NO DOMESTIC VIOLENCE DO YOU FEEL SAFE IN YOUR ENVIRONMENT?YES 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 EXERCISE: WALKS. MARITAL STATUS: . OTHERS AT HOME: SPOUSE. PAIN CLINIC PFS, CLERGY, PUBLIC HEALTH REFERRALS PFS REFERRAL NEEDED?NO CLERGY REFERRAL NEEDED?NO PUBLIC HEALTH REFERRAL NEEDED?NO WAS THE PROVIDER NOTIFIED OF ANY PERTINENT INFO? N/A HAS THE PATIENT BEEN EDUCATED REGARDING HIS/HER PLAN OF CARE?YES HAS THE PATIENT BEEN EDUCATED REGARDING PAIN, THE RISK FOR PAIN, THE IMPORTANCE OF EFFECTIVE PAIN MANAGEMENT, AND THE PAIN ASSESSMENT PROCESS?YES ADVANCE DIRECTIVE ADVANCE DIRECTIVE DISCUSSED WITH PATIENT:YES HCP ON FILE , AUDREY [phone] 12/01/18 REVIEWED WITH PT. AD. HOSPITALIZATION/MAJOR DIAGNOSTIC PROCEDURE SURGERY RELATED GUILLAIN BARRE REQUIRING PLASMAPHERESIS, IVIG, STEROIDS AND INTUBATION [facility] 09/2015 PNEUMONIA, ILEITIS 02/2018 REVIEW OF SYSTEMS REVIEWED BY: PROVIDER: BRITT RESENDIZ . CONSTITUTIONAL: ANY CHANGE IN YOUR MEDICAL CONDITION? NO . CHILLS NO . FEVER NO . INFECTION: DO YOU HAVE NEW INFECTIONS? NO . DO YOU HAVE HISTORY OF MRSA? NO . MUSCULOSKELETAL: ANY NEW PATTERNS OF PAIN OR NUMBNESS? NO . GASTROENTEROLOGY: ANY NEW CHANGE IN BOWEL CONTROL? NO . GENITOURINARY: ANY NEW CHANGE IN BLADDER CONTROL? NO . IS THERE A CHANCE YOU COULD BE ? NO . HEMATOLOGY/LYMPH: DO YOU TAKE ANY BLOOD THINNERS? (FOR EXAMPLE- COUMADIN, PLAVIX, AGGRENOX, PLATEL, PRADAXA, OR XARELTO) NO . WHEN WAS YOUR LAST DOSE? DATE: TIME: . NEUROLOGY: HAVE YOU FALLEN IN THE PAST 12 MONTHS? NO . ANY NEW EXTREMITY NUMBNESS OR WEAKNESS? NO . CARDIOLOGY: DO YOU HAVE A PACEMAKER OR DEFIBRILLATOR? NO . RESPIRATORY: HAVE YOU BEEN SICK IN THE PAST WEEK? NO . FEVER NO . FLU LIKE SYMPTOMS? NO . COUGH NO . INTEGUMENTARY: DO YOU HAVE ANY RASHES OR OPEN SORES? NO . ALLERGIC/IMMUNO: ARE YOU ALLERGIC TO IV DYE? NO . ANY NEW ALLERGIES? NO . PSYCHIATRIC: DO YOU HAVE THOUGHTS OF HURTING YOURSELF OR SOMEONE ELSE? NO . ARE YOU ABUSED, NEGLECTED, OR IN AN UNSAFE ENVIRONMENT? NO . ENDOCRINOLOGY: ARE YOU DIABETIC? YES . OTHER: DO YOU NEED ANY PRESCRIPTIONS? NO . IF YES, PLEASE LIST: ____ . ANY NEW PROBLEMS WITH YOUR MEDICATIONS? NO . WHEN DID YOU LAST EAT? ____ . WHEN DID YOU LAST DRINK? ____ . WHAT DID YOU LAST DRINK? ____ . NAME OF PERSON DRIVING YOU HOME? ____ . DO YOU HAVE ANY OTHER QUESTIONS OR CONCERNS NO . VITAL SIGNS WT 185.2 LBS, HT 70 IN, BMI 26.57 INDEX, BP 140/87 MM HG, HR 97 /MIN, RR 18 /MIN, TEMP 97.5 F, OXYGEN SAT % 100%, SAFE IN ENV? (Y/N) Y, NA INITIALS AW 0901, REVIEWED BY: AD. EXAMINATION GENERAL EXAMINATION: LUNGS:LUNG SOUNDS ARE CLEAR . HEART:HEART RATE REGULAR . MUSCULOSKELETAL:*, MUSCLE STRENGTH TESTING 5/5 BILATERAL UPPER EXTREMITIES. . CERVICAL+ FOR PAIN WITH PALPATION OF CERVICAL SPINE. + FOR PAIN WITH PALPATION OF CERVICAL PARASPINALS.SPECIFIC POINT TENDERNESS NOTED OV C4/5-/C5/6 CERVICAL FACETS WITH EXTENSION AND FACET LOADING. . DIAGNOSTIC TESTS REVIEWEDCERVICAL MRI -10/24/15. ASSESSMENTS CERVICAL DISC DISORDER WITH RADICULOPATHY OF CERVICAL REGION - M50.10 (PRIMARY) CERVICAL SPONDYLOSIS WITH RADICULOPATHY - M47.22 TREATMENT CERVICAL DISC DISORDER WITH RADICULOPATHY OF CERVICAL REGION CONTINUE CYMBALTA CAPSULE DELAYED RELEASE PARTICLES, 60 MG, 1 CAPSULE, ORALLY, BEFORE BEDTIME CONTINUE TIZANIDINE HCL TABLET, 2 MG, 1 TABLET NEEDED, ORALLY, EVERY 8 HRS CONTINUE GABAPENTIN CAPSULE, 300 MG, 1 CAPSULE, ORALLY, BEFORE BEDTIME CONTINUE PERCOCET TABLET, 5-325 MG, 1 TO 2 TAB, ORALLY, Q6H PRN MDD 4 CONTINUE SOMA TABLET, 350 MG, 1 TABLET NEEDED, ORALLY, FOUR TIMES A DAY PRN CONTINUE GABAPENTIN CAPSULE, 100 MG, 1 CAPSULE, ORALLY, IN AM [facility] MRI SPINE, CERVICAL WITHOUT [id number],HEATHER L 12/07/2018 3:33:08 PM > RICHIE MARTINEZ 12/04/2018 12:25:50 PM > ERROR, APPROVED ([id number]) 12/04/18-01/18/19 AUTH# [id number] OKAY TO BOOK NOTES: C4/5-C5/6-C6/7 THERAPEUTIC FACET BLOCK/ 1WK LATTER NECK TRAPEZIUS TPIISTOP REGISTRY REVIEWED AND DEMONSTRATES COMPLLIANCE. [facility] NARCOTIC AGREEMENT WAS REVIEWED AND SIGNED TODAY BY THE PATIENT. SEE ATTACHED DOCUMENT FOR FULL DETAILS; SPECIFIC ISSUES WERE REVIEWED: 1) KEEP PAIN MEDS IN THEIR ORIGINAL BOTTLES AND ANY WEEKLY PLANNERS ARE TO BE BROUGHT TO THE PAIN CENTER AT EVERY VISIT. 2) THE PATIENT IS NOT TO INCREASE DOSING OR TIMING OF THEIR PAIN MEDICATION WITHOUT SPECIFIC DIRECTION OF THEIR PAIN CENTERPROVIDER (NOT ER OR OTHER PROVIDERS). 3) ALL PAIN MEDS ARE TO BE KEPT SECURED, IN A LOCKED BOX. 4) NO PAIN MEDS ARE TO BE SHARED WITH ANY OTHER PERSON FOR ANY REASON. 5) NO PAIN MEDS MAY BE TAKEN FROM ANY FRIENDS OR RELATIVES FOR ANY REASON 6) NO MEDS OR SUBSTANCES WHICH ARE NOT LEGAL ARE TO BE USED- NO MARIJUANA, NO COCAINE, AMPHETAMINES, HEROIN, OR OTHERS ARE EVER TO BE USED. 7)URINE TESTING IS DONE TO ACCOUNT FOR MEDS AND SUBSTANCES BEING TAKEN AND WILL BE DONE RANDOMLY., RISKS AND BENEFITS OF NARCOTIC/OPIOD MEDICATIONS WERE REVIEWED WITH PATIENT - THIS INCLUDES BUT IS NOT LIMITED TO RISK OF DEPENDANCE/DEVELOPMENT OF ADDICTION, MOOD DISTURBANCE AND DEPRESSION, OSTEOPOROSIS, HORMONAL AND LABIDAL CHANGES, RESPIRATORY DEPRESSION AND . PATIENT IS ADVISED NOT TO DRIVE OR DRINK ALCOHOL WHILE ON THESE MEDICATIONS,. PREVENTIVE MEDICINE FOR PROCEDURE PT INSTRUCTED TO HAVE TPI SCHEDULED FIRST AND TO HAVE STOPPED ENTERIC 4 FULL DAYS PRIOR.PT GIVEN SCRIPT FOR MRIALSO REVIEWED PRE PROCEDURE EDUCATION WITH PT AND AUDREY WHO IS AT HIS SIDE. PROCEDURE CODES FA211 ESTABILISHED PATIENT [facility] CHARGE DISPOSITION & COMMUNICATION FOLLOW UP POST (REASON: C4/5-C5/6-C6/7 THERAPEUTIC FACET BLOCK/ 1WK LATTER NECK TRAPEZIUS TPI) ELECTRONICALLY SIGNED BY MARTÍN GOLDBERG ON 12/11/2018 AT 08:43 AM EST DISCLAIMER : THIS IS A VISIT SUMMARY EXTRACTED FROM THE [employer] CHART. IT IS NOT A COPY OF THE [employer] PROGRESS NOTE. TERESA
== END ==
LOC: M PAIN 08:30
PROVIDERS: ATTEND Nurse Practitioner Family
DX: M50.10 Cervical disc disorder with radiculopathy, unspecified cervical region (principal); M47.22 Other spondylosis with radiculopathy, cervical region; E11.9 Type 2 diabetes mellitus without complications; G43.909 Migraine, unspecified, not intractable, without status migrainosus; I10 Essential (primary) hypertension; E78.00 Pure hypercholesterolemia, unspecified; Z79.82 Long term (current) use of aspirin; Z79.84 Long term (current) use of oral hypoglycemic drugs; Z79.891 Long term (current) use of opiate analgesic; Z79.899 Other long term (current) drug therapy; Z87.39 Personal history of other diseases of the musculoskeletal system and connective tissue; Z86.79 Personal history of other diseases of the circulatory system; Z87.19 Personal history of other diseases of the digestive system

== ENCOUNTER → 2018-12-01 | Outpatient (REF) | payer BC ==
[~2018-12-01] MED LIST changes: -ALBU83IN NEB; -BENZ200C70 PO; -BUDE3CAP PO; -JARD1TAB PO; -LOSA50TA88 PO; -MELA5TAB17 PO; -METF-723 PO; -METO5TAB2 PO; -ONDA8TAB8 PO; -OXYC1TAB23 PO; -PROAAER10 INH; -PROB250C PO; -SUCR1TA PO; -TESS100C PO; -TOPA1TAB PO
[2018-12-01 13:35] LABS: ALT/SGPT 13 U/L (12-78); BLOOD UREA NITROGEN 13 MG/DL (7-18); CALCIUM LEVEL 8.6 MG/DL (8.5-10.1); CARBON DIOXIDE LEVEL 32 MEQ/L (21-32); CHLORIDE LEVEL 105 MEQ/L (98-107); GLOMERULAR FILTRATION RATE > 60.0 (>56); GLUCOSE, FASTING 183 MG/DL (70-100); POTASSIUM SERUM 3.5 MEQ/L (3.5-5.1); SODIUM LEVEL 142 MEQ/L (136-145)
[2018-12-01 13:36] LABS: ALBUMIN 3.5 GM/DL (3.2-5.2); BILIRUBIN,TOTAL 0.5 MG/DL (0.2-1.0); C REACTIVE PROTEIN QUANTITATIV < 0.30 MG/DL (0.00-0.30); HEMATOCRIT 43.8 % (42.0-52.0); HEMOGLOBIN 14.5 g/dl (13.5-17.5); LIPASE 204 U/L (73-393); MEAN CORPUSCULAR HEMOGLOBIN 28.8 pg (27.0-33.0); MEAN CORPUSCULAR HGB CONC 33.1 g/dl (32.0-36.5); MEAN CORPUSCULAR VOLUME 87.1 fl (80.0-96.0); PLATELET COUNT, AUTOMATED 210 10^3/uL (150-450); RED BLOOD COUNT 5.03 10^6/uL (4.30-6.10); TOTAL PROTEIN 5.7 GM/DL (6.4-8.2); WHITE BLOOD COUNT 5.1 10^3/uL (4.0-10.0)
== END ==
LOC: M LABDRAW1 13:05
PROVIDERS: ATTEND Internal Medicine Gastroenterology
DX: R10.11 Right upper quadrant pain (principal); R93.3 Abnormal findings on diagnostic imaging of other parts of digestive tract; K44.9 Diaphragmatic hernia without obstruction or gangrene; K21.9 Gastro-esophageal reflux disease without esophagitis; R11.0 Nausea; K50.00 Crohn's disease of small intestine without complications

== ENCOUNTER 2018-12-10 09:50 | Observation (INO) | payer BC ==
[~2018-12-10] VITALS: Ht 177.8 cm; Wt 83.0 kg
[2018-12-10] VITALS (7 sets, daily range): BP systolic 141–193; BP diastolic 71–109
[2018-12-10] MEDS: AUGMENTIN 875 MG TAB PO SCH ×2 (09:00→21:10)
[2018-12-10 10:05] LABS: BASO % 0.2 % (0.0-1.0); EOS # 0.1 10^3/uL (0.0-0.50); EOS % 1.2 % (0.0-3.0); HEMATOCRIT 43.1 % (42.0-52.0); HEMOGLOBIN 14.6 g/dl (13.5-17.5); LYMPH # 1.1 10^3/uL (1.5-4.5); LYMPH % 25.8 % (24.0-44.0); MEAN CORPUSCULAR HEMOGLOBIN 28.9 pg (27.0-33.0); MEAN CORPUSCULAR HGB CONC 33.9 g/dl (32.0-36.5); MEAN CORPUSCULAR VOLUME 85.2 fl (80.0-96.0); MONO # 0.3 10^3/uL (0.0-0.8); MONO % 7.3 % (0.0-5.0); NEUTROPHILS # 2.8 10^3/uL (1.8-7.7); NEUTROPHILS % 65.3 % (36.0-66.0); PLATELET COUNT, AUTOMATED 189 10^3/uL (150-450); RED BLOOD COUNT 5.06 10^6/uL (4.30-6.10); WHITE BLOOD COUNT 4.2 10^3/uL (4.0-10.0)
[2018-12-10 10:20] LABS: INR 0.89; PROTHROMBIN TIME 12.1 SECONDS (12.1-14.4)
--- NOTE | 2018-12-10 10:29 | ECGEPIP ---
Stationary ECG Study 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
[2018-12-10] MEDS ORDERED: NS 500 ML IV ONE (10:30)
[2018-12-10 10:39] LABS: ALBUMIN 3.6 GM/DL (3.2-5.2); ALT/SGPT 13 U/L (12-78); BILIRUBIN,DIRECT 0.2 MG/DL (0.0-0.2); BILIRUBIN,TOTAL 0.7 MG/DL (0.2-1.0); BLOOD UREA NITROGEN 10 MG/DL (7-18); CALCIUM LEVEL 8.6 MG/DL (8.5-10.1); CARBON DIOXIDE LEVEL 32 MEQ/L (21-32); CHLORIDE LEVEL 104 MEQ/L (98-107); CPK CREATINE PHOSPHOKINASE 39 U/L (39-308); CREATININE FOR GFR 0.87 MG/DL (0.70-1.30); FREE T4 1.09 NG/DL (0.76-1.46); GLOMERULAR FILTRATION RATE > 60.0 (>56); GLUCOSE, FASTING 228 MG/DL (70-100); MAGNESIUM LEVEL 1.8 MG/DL (1.8-2.4); MB/CK RELATIVE INDEX 3.33 (< OR =4); POTASSIUM SERUM 3.1 MEQ/L (3.5-5.1); SODIUM LEVEL 141 MEQ/L (136-145); THYROID STIMULATING HORMONE 0.407 uIU/ML (0.358-3.740); TOTAL PROTEIN 6.1 GM/DL (6.4-8.2); TROPONIN I < 0.02 NG/ML (< 0.10)
--- NOTE | 2018-12-10 10:39 | REP ---
Clinical: Chest pain. Technique: AP and lateral. Comparison: 12/03/2018. Findings: Mediastinum and cardiac silhouette are stable. No obvious focal consolidation is appreciated although lateral view suggest the possibility of right basilar atelectasis. No effusion. No pneumothorax. Skeletal structures intact. Impression: Possible right basilar atelectasis suggested by lateral radiograph. Electronically Signed by Giovanni Key MD 12/10/2018 10:31 A
[2018-12-10] MEDS ORDERED: tiZANidine 4 MG TAB PO ONE (10:45)
[2018-12-10] MEDS ORDERED: NEUTRA-PHOS 1.25 GM PACKET PO ONE (10:45)
[2018-12-10] MEDS ORDERED: POTASSIUM CHLORIDE 10 MEQ SR TABLET PO ONE (10:45)
[2018-12-10] MEDS ORDERED: ONDANSETRON 4MG/2ML VIAL (J2405) IV ONE (11:00)
--- NOTE | 2018-12-10 11:00 | REP ---
Clinical: Acute cerebrovascular accident. Comparison: 04/02/2017 . Findings: The ventricles, sulci, and cisterns are normal in position and appearance. Buck-white differentiation is maintained. No acute intracranial hemorrhage, mass/mass effect, pathology or trauma/injury. No evidence for acute infarction. No extra-axial fluid collection. Calvarium is intact. Partial opacification of the visualized ethmoid sinuses. Impression: No evidence for acute intracranial pathology or trauma/injury. Ethmoid sinus disease. Electronically Signed by Giovanni Key MD 12/10/2018 10:52 A
[2018-12-10] MEDS ORDERED: LOSARTAN 50 MG TAB PO ONE (11:30)
[2018-12-10] MEDS ORDERED: ALBU83IN NEB (11:32)
[2018-12-10] MEDS ORDERED: BUDE3CAP PO (11:32)
[2018-12-10] MEDS ORDERED: JARD1TAB PO (11:32)
[2018-12-10] MEDS ORDERED: TESS100C PO (11:32)
[2018-12-10] MEDS ORDERED: PROB250C PO (11:32)
[2018-12-10] MEDS ORDERED: AUGM875T28 PO (11:32)
[2018-12-10] MEDS ORDERED: LOSA50TA88 PO (11:32)
[2018-12-10] MEDS ORDERED: SUCR1TA PO (11:33)
[2018-12-10] MEDS ORDERED: LABETALOL HCL 100 MG/20 ML VIAL IV STA (11:36)
[2018-12-10] MEDS ORDERED: FLECAINIDE 50MG TABLET PO ONE (11:45)
[2018-12-10] MEDS ORDERED: BENZ200C70 PO (12:16)
[2018-12-10] MEDS ORDERED: PROAAER10 INH (12:16)
[2018-12-10] MEDS ORDERED: MELA5TAB17 PO (12:20)
[2018-12-10] MEDS ORDERED: OXYC1TAB23 PO (12:24)
[2018-12-10] MEDS ORDERED: ONDA8TAB8 PO (12:24)
[2018-12-10] MEDS ORDERED: METF-723 PO (12:24)
[2018-12-10] MEDS ORDERED: AMLO5TAB6 PO (12:26)
[2018-12-10] MEDS ORDERED: GABA-1171 PO (12:26)
[2018-12-10] MEDS ORDERED: BENZONATATE 100 MG CAP PO PRN (13:45)
[2018-12-10] MEDS ORDERED: ALBUTEROL 90 MCG/ACT 8GM HFA INHALER INH PRN (13:45)
[2018-12-10] MEDS ORDERED: hydrALAZINE INJ 20 MG/ML VIAL IV PRN ×2 (14:00→23:00)
[2018-12-10] MEDS ORDERED: amLODIPine 10 MG TAB PO STA (14:17)
--- NOTE | 2018-12-10 14:17 | HPE ---
DATE OF ADMISSION: 12/10/2018 This is a 53-year-old male with past medical history of Guillain-Charlo syndrome, atrial fibrillation, type 2 diabetes, hypertension, hyperlipidemia, history of chronic hypokalemia secondary to gastric bypass surgery, complex migraines, who presents to the emergency room with generalized weakness and inability to ambulate. He says that this is not unilateral, it is bilateral leg weakness. When he came to the emergency room, he was found to have elevated blood pressure of systolic 203. He also had frontal headache associated with this. He was given tizanidine because he does apparently have headaches with his complex migraine attacks. The patient was given labetalol 10 by the emergency room attending as well and was given his oral losartan 50 mg that he did not take this morning. Blood pressure now is systolic 150, and his headache has improved. He denies any chest pain or shortness of breath. He will be admitted for further management. PAST MEDICAL HISTORY: 1. Guillain-Charlo syndrome. 2. Paroxysmal atrial fibrillation. 3. Type 2 diabetes. 4. Hypertension. 5. Hyperlipidemia. 6. Complex migraines. 7. Chronic back pain. 8. Nephrolithiasis. 9. Morbid obesity, status post gastric bypass surgery. 10. Chronic hypokalemia. 11. Gout. 12. Depression. PAST SURGICAL HISTORY: 1. History of gastric bypass. 2. 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 3. Arthroscopic surgery of bilateral knees. 4. Open reduction, internal fixation (ORIF) of left arm. 5. Cystoscopy times two. 6. Vasectomy. 7. History of cardiac catheterization 7 years ago with no stents. ALLERGIES: He has no known drug allergies. FAMILY HISTORY: Noncontributory. SOCIAL HISTORY: The patient denies tobacco, alcohol, illicit drugs. MEDICATIONS: He takes at home: - albuterol two puffs inhaled every 4 hours as needed - Augmentin one tablet orally twice a day for upper respiratory infection for 10 days - aspirin 81 mg orally daily - atorvastatin 10 mg orally at bedtime - benzonatate 200 mg orally two times a day as needed - Bisoprolol 5 mg orally at bedtime - budesonide 6 mg orally daily - carisoprodol 250 mg orally daily as needed - cholecalciferol 5000 units orally daily - Citracal/vitamins 200/250 two tablets orally at bedtime - cyanocobalamin 500 mg orally daily - duloxetine 60 mg orally at bedtime - flecainide 50 mg orally twice a day - gabapentin 300 mg orally at bedtime - losartan 50 mg orally daily - magnesium oxide 400 mg orally twice a day - melatonin 5 mg orally at bedtime - metformin 1000 mg orally twice a day - multivitamin two tablets orally daily - omeprazole 40 mg orally at bedtime - Zofran 8 mg orally every 8 hours as needed - oxycodone/acetaminophen one tablet orally four times a day as needed - potassium chloride 40 mEq orally twice a day - sucralfate 1 gram orally twice a day - tamsulosin 0.4 mg orally daily - tizanidine 2 mg orally twice a day as needed - Trulicity 0.75 mg subcutaneously weekly - probiotic one tablet orally daily REVIEW OF SYSTEMS: Negative for all ten major systems except what is mentioned in the history of present illness. PHYSICAL EXAMINATION VITAL SIGNS: Blood pressure 152/84, heart rate is 75 and regular, respiratory rate 18, temperature is 97.5, oxygen saturation is 97% on room air. Head is atraumatic, normocephalic. Neck is supple with no jugular venous distention (JVD). Lungs are clear to auscultation. S1, S2 audible. No murmurs appreciated. Abdomen is soft. Positive bowel sounds. No pedal edema. Skin intact. Neurologic examination, the patient has +3 strength in the left upper and lower extremity. +5 strength in the right upper and lower extremity. Cranial nerves intact. He is alert and oriented times three. LABORATORIES: WBC 4.2, hemoglobin 14.6, hematocrit 43.1, platelets 190,000. Sodium 141, potassium 3.1, chloride 104, CO2 of 32, anion gap 5, BUN 10, creatinine 0.87, fasting glucose 28, TSH is 0.427. Troponin is less than 0.02. 12-leak electrocardiogram (EKG) shows normal sinus rhythm with no acute ST-T abnormalities. IMPRESSION: 1. Hypertensive urgency. 2. Hypokalemia. PLAN: The patient is to be admitted to the medical/surgical floor with telemetry. I am going to add Norvasc 10 mg first dose stat to his drug regimen and hydralazine as needed in between. We will monitor his blood pressure trends. As far as the hypokalemia is concerned, the emergency room attending already repleted the potassium and we will follow BMP in the morning and followup potassium trend. I will continue all of his other preadmission medications. Continue his care on the medical/surgical floor. TERESA
[2018-12-10] MEDS: ASPIRIN 81 MG ENTERIC TAB PO SCH (15:24)
[2018-12-10] MEDS: MULTIVITAMINS/MINERALS THERAP 1 TAB PO SCH (15:25)
[2018-12-10] MEDS: VITAMIN D 1,000 INTERNATIONAL UNITS TABLET PO SCH (15:25)
[2018-12-10] MEDS: BUDESONIDE EC 3 MG CAP (ENTOCORT EC) PO SCH (15:25)
[2018-12-10] MEDS: TAMSULOSIN 0.4 MG CAP PO SCH (15:25)
[2018-12-10] MEDS: CYANOCOBALAMIN 500 MCG TAB PO SCH (15:25)
[2018-12-10] MEDS: SUCRALFATE 1 GM TAB PO SCH (17:21)
[2018-12-10] MEDS: tiZANidine 4 MG TAB PO PRN ×2 (17:45→23:17)
[2018-12-10] MEDS ORDERED: hydrALAZINE INJ 20 MG/ML VIAL IV ONE (18:00)
[2018-12-10] MEDS ORDERED: metFORMIN XR 500MG TAB *GLUCOPHAGE XR PO SCH (18:00)
[2018-12-10] MEDS: ONDANSETRON 4 MG ORAL DISINTEGRATING TAB (Q0162 PER 1MG) PO PRN (19:35)
[2018-12-10] MEDS: PERCOCET 5MG/325MG TAB PO PRN (19:36)
[2018-12-10] MEDS ORDERED: GLUCAGON FOR INJ 1 MG VIAL (J1610) SC PRN (20:00)
[2018-12-10] MEDS ORDERED: DEXTROSE 50% 50 ML SYRINGE IV PRN (20:00)
[2018-12-10] MEDS ORDERED: GLUCOSE 4 GM CHEW TABLET PO PRN (20:00)
[2018-12-10] MEDS: HumaLOG INSULIN (NovoLOG) PER UNIT SC SCH (21:00)
[2018-12-10] MEDS: ATORVASTATIN 10 MG TAB PO SCH (21:10)
[2018-12-10] MEDS: DULoxetine 30 MG CAP (CYMBALTA) PO SCH (21:11)
[2018-12-10] MEDS: BISOPROLOL FUMARATE 5 MG TAB PO SCH (21:11)
[2018-12-10] MEDS: FLECAINIDE 50MG TABLET PO SCH (21:11)
[2018-12-10] MEDS: GABAPENTIN 300 MG CAP PO SCH (21:11)
[2018-12-10] MEDS: CARISOPRODOL 350 MG TAB PO PRN (21:11)
[2018-12-10] MEDS: OMEPRAZOLE 20 MG CAP PO SCH (21:12)
[2018-12-10] MEDS: POTASSIUM CHLORIDE 10 MEQ SR TABLET PO SCH (21:12)
[2018-12-10] MEDS: MAGNESIUM OXIDE 400 MG TAB (MAG-OX) PO SCH (21:12)
[2018-12-10] MEDS ORDERED: METOCLOPRAMIDE INJ 10MG/2ML VIAL (J2765) IV ONE (23:15)
--- NOTE | 2018-12-11 00:50 | ECGEPIP ---
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
[2018-12-11] MEDS: PERCOCET 5MG/325MG TAB PO PRN ×3 (03:46→21:45)
[2018-12-11 04:00] VITALS: BP 131/69
[2018-12-11 05:38] LABS: BLOOD UREA NITROGEN 12 MG/DL (7-18); CALCIUM LEVEL 8.2 MG/DL (8.5-10.1); CARBON DIOXIDE LEVEL 28 MEQ/L (21-32); CHLORIDE LEVEL 106 MEQ/L (98-107); CREATININE FOR GFR 0.76 MG/DL (0.70-1.30); GLOMERULAR FILTRATION RATE > 60.0 (>56); GLUCOSE, FASTING 233 MG/DL (70-100); POTASSIUM SERUM 3.5 MEQ/L (3.5-5.1); SODIUM LEVEL 141 MEQ/L (136-145)
[2018-12-11] MEDS: HumaLOG INSULIN (NovoLOG) PER UNIT SC SCH ×4 (07:30→22:07)
[2018-12-11 07:33] LABS: ALBUMIN 3.1 GM/DL (3.2-5.2); ALT/SGPT 13 U/L (12-78); BILIRUBIN,TOTAL 0.6 MG/DL (0.2-1.0); MAGNESIUM LEVEL 1.9 MG/DL (1.8-2.4); TOTAL PROTEIN 5.8 GM/DL (6.4-8.2)
[2018-12-11 07:35] LABS: BASO % 0.2 % (0.0-1.0); EOS % 0.7 % (0.0-3.0); HEMATOCRIT 41.4 % (42.0-52.0); HEMOGLOBIN 14.1 g/dl (13.5-17.5); LYMPH # 1.2 10^3/uL (1.5-4.5); LYMPH % 21.5 % (24.0-44.0); MEAN CORPUSCULAR HEMOGLOBIN 29.1 pg (27.0-33.0); MEAN CORPUSCULAR HGB CONC 34.1 g/dl (32.0-36.5); MEAN CORPUSCULAR VOLUME 85.5 fl (80.0-96.0); MONO # 0.4 10^3/uL (0.0-0.8); MONO % 6.4 % (0.0-5.0); NEUTROPHILS # 3.9 10^3/uL (1.8-7.7); NEUTROPHILS % 70.8 % (36.0-66.0); PLATELET COUNT, AUTOMATED 208 10^3/uL (150-450); RED BLOOD COUNT 4.84 10^6/uL (4.30-6.10); WHITE BLOOD COUNT 5.5 10^3/uL (4.0-10.0)
[2018-12-11] MEDS: SUCRALFATE 1 GM TAB PO SCH ×2 (07:51→16:47)
[2018-12-11 08:00] VITALS: BP 138/79
[2018-12-11] MEDS: ONDANSETRON 4 MG ORAL DISINTEGRATING TAB (Q0162 PER 1MG) PO PRN ×2 (08:05→20:18)
[2018-12-11 08:24] LABS: CPK CREATINE PHOSPHOKINASE 35 U/L (39-308); MB/CK RELATIVE INDEX 3.14 (< OR =4); TROPONIN I < 0.02 NG/ML (< 0.10)
[2018-12-11] MEDS ORDERED: amLODIPine 10 MG TAB PO SCH (09:00)
[2018-12-11] MEDS: ENOXAPARIN 40 MG/0.4 ML SYRINGE (J1650) SC SCH (09:00)
[2018-12-11] MEDS: CYANOCOBALAMIN 500 MCG TAB PO SCH (09:00)
[2018-12-11 12:00] VITALS: BP 150/88
[2018-12-11] MEDS: amLODIPine 10 MG TAB PO SCH (12:00)
[2018-12-11] MEDS: tiZANidine 4 MG TAB PO PRN ×2 (12:00→21:46)
--- NOTE | 2018-12-11 13:19 | IPNPDOC ---
Date Seen The patient was seen on 12/11/18. Progress Note SUBJECTIVE: Patient is a 53-year-old male with hypertensive urgency and left-sided weakness. Patient is evaluated at bedside this morning. When queried his reason for admission to the hospital patient states that he has an "absorption problem" and that "his made him come." He states that he follows with gastroenterology in [place] with an extensive work-up conducted with no definitive diagnoses for why he does not appear to absorb his medications. He notes a history of gastric bypass for which he has been referred back to his bariatric surgeon. He notes that he has a history of complex migraines with them manifesting as left sided weakness. He has previously been worked-up for stroke with the results being negative for stroke. He states that he is also vomiting and is unable to tolerate food as he vomits up whatever he puts in his stomach. He has had diabetes for 25 years. OBJECTIVE PHYSICAL EXAMINATION: VITAL SIGNS: Please see below. GENERAL: Well nourished, well developed male, somewhat disheveled, alert and conversant, appropriately dressed in hospital attire, no acute distress. HEENT: Atraumatic, normocephalic, PERRL, EOMI, oral mucosa appears pink and moist, nasal septum appears midline, nares are patent. CARDIOVASCULAR: Regular rate and rhythm, normal S1 and S2, no definite murmur, rub, click. RESPIRATORY: Clear to auscultation bilaterally, adequate inspiratory and expiratory airway excursion, symmetric airway entry, no focal consolidations, no wheeze, rhonchi, crackles. ABDOMINAL: Soft, non-tender, non-distended, no guarding, no rebound, bowel sounds appreciated. EXTREMITIES: Warm, dry, intact, no cyanosis, no clubbing, muscle strength 5/5 in right upper and lower extremities, muscle strength subjectively 4/5 in left upper and lower extremities, peripheral pulses equal and symmetrical, +2. NEUROLOGICAL: No focal neurological deficits, downward going bilateral Babinski's. PSYCHOLOGICAL: Mood and affect appropriate. LABORATORY DATA, IMAGING STUDIES, MICROBIOLOGY: Please see below. DVT prophylaxis ordered?: Lovenox 40mg subcutaneously daily. ASSESSMENT AND PLAN: This is a 53-year-old male with left sided we akness with inability to ambulate likely secondary to complex migraine. PROBLEMS: 1. Unilateral weakness: Likely secondary to complex migraine attack. Will obtain a brain MRI. Physical and occupational therapy ordered. Continue Tizanidine. 2. Hypertensive urgency: Obtaining renal Doppler ultrasound. Continue with Bisoprolol and Losartan. Added Amlodipine and IV Hydralazine. Blood pressure under much better control. Monitor on telemetry. 3. Nausea and vomiting: Question possible gastroparesis. Has long-standing diabetes. History of gastric bypass surgery. Continue with IV Zofran and Sucralfate. Added IV Metoclopramide. 4. Hypokalemia: Continue with potassium 40 mEq by mouth twice daily. 5. Diabetes mellitus with diabetic neuropathy: Holding Jardiance, Trulicity, and Metformin. Continue with sliding scale insulin, fingersticks before meals and at bedtime, hypoglycemic protocol, and consistent carbohydrate diet. Continue with Gabapentin. 6. Paroxysmal atrial fibrillation: Continue Flecainide and Aspirin. 7. Benign prostatic hyperplasia: Continue Tamsulosin. 8. Dyslipidemia: Continue Atorvastatin. 9. Depression: Continue Duloxetine. 10. Gastroesophageal reflux disease: Continue Omeprazole. 11. Chronic back pain: Continue Percocet and Soma. 12. History of gastric bypass surgery: Continue vitamin D and B12 supplementation. DISPOSITION: Control blood pressure and migraine attack. VS, I&O, 24H, Fishbone Vital Signs/I&O Vital Signs Date Time Temp Pulse Resp B/P (MAP) Pulse Ox O2 Delivery O2 Flow Rate FiO2 12/11/18 08:00 98.6 86 20 138/79 (98) 98 12/10/18 14:30 Room Air 12/10/18 10:50 2.0 I&O- Last 24 Hours up to 6 AM 12/11/18 06:00 Intake Total 120 ml Output Total 0 ml Balance 120 ml Laboratory Data 24H LABS Laboratory Tests 2 12/10/18 15:46: Bedside Glucose (Misc Panel) 137H 12/10/18 16:36: Bedside Glucose (Misc Panel) 145H 12/10/18 21:22: Bedside Glucose (Misc Panel) 301H 12/11/18 04:52: Immature Granulocyte % (Auto) 0.4, White Blood Count 5.5, Red Blood Count 4.84, Hemoglobin 14.1, Hematocrit 41.4L, Mean Corpuscular Volume 85.5, Mean Corpuscular Hemoglobin 29.1, Mean Corpuscular Hemoglobin Concent 34.1, Red Cell Distribution Width 12.1, Platelet Count 208, Neutrophils (%) (Auto) 70.8H, Lymphocytes (%) (Auto) 21.5L, Monocytes (%) (Auto) 6.4H, Eosinophils (%) (Auto) 0.7, Basophils (%) (Auto) 0.2, Neutrophils # (Auto) 3.9, Lymphocytes # (Auto) 1.2L, Monocytes # (Auto) 0.4, Eosinophils # (Auto) 0.0, Basophils # (Auto) 0.0, Nucleated Red Blood Cells % (auto) 0.0 12/11/18 04:53: Anion Gap 7L, Glomerular Filtration Rate > 60.0, Blood Urea Nitrogen 12, Creatinine 0.76, Sodium Level 141, Potassium Level 3.5, Chloride Level 106, Carbon Dioxide Level 28, Calcium Level 8.2L, Aspartate Amino Transf (AST/SGOT) 15, Alanine Aminotransferase (ALT/SGPT) 13, Alkaline Phosphatase 83, Total Bilirubin 0.6, Total Protein 5.8L, Albumin 3.1L, Magnesium Level 1.9, Albumin/Globulin Ratio 1.15 12/11/18 07:38: Total Creatine Kinase 35L, Creatine Kinase MB 1.0, Creatine Kinase MB Relative Index 3.14, Troponin I < 0.02 CBC/BMP Laboratory Tests 12/11/18 04:52 Red Blood Count 4.84, Mean Corpuscular Volume 85.5, Mean Corpuscular Hemoglobin 29.1, Mean Corpuscular Hemoglobin Concent 34.1, Red Cell Distribution Width 12.1, Neutrophils (%) (Auto) 70.8 H, Lymphocytes (%) (Auto) 21.5 L, Monocytes (%) (Auto) 6.4 H, Eosinophils (%) (Auto) 0.7, Basophils (%) (Auto) 0.2, Neutrophils # (Auto) 3.9, Lymphocytes # (Auto) 1.2 L, Monocytes # (Auto) 0.4, Eosinophils # (Auto) 0.0, Basophils # (Auto) 0.0 12/11/18 04:53 Calcium Level 8.2 L, Aspartate Amino Transf (AST/SGOT) 15, Alanine Aminotransferase (ALT/SGPT) 13, Alkaline Phosphatase 83, Total Bilirubin 0.6, Total Protein 5.8 L, Albumin 3.1 L PATRICIA LAKE DO Dec 11, 2018 11:50
--- NOTE | 2018-12-11 13:23 | REP ---
MRI brain without contrast: History: Left leg weakness. . Comparison study: Comparison CT study is reviewed from the previous day December 10, 2018. Technique: Axial and sagittal imaging planes are utilized for T1 and T2-weighted scans. Sequences include spin-echo, fast spin echo, FLAIR, and diffusion weighted sequences. MRI findings: No bony calvarial lesion is seen. Craniocervical junction and upper cervical cord are normal in appearance. There are small air fluid levels in the maxillary sinuses bilaterally. Mild mucosal thickening is seen in the ethmoid sinuses. No intraorbital abnormality is seen. The lateral, third, and fourth ventricles are normal in size and position. Buck-white differentiation pattern is intact above and below the tentorium. There is no evidence of intracranial hemorrhage. No mass, infarction, extra-axial fluid collection or midline shift is seen. No abnormal white matter lesion is seen. Impression: Bilateral maxillary ethmoid sinus mucosal changes. Otherwise negative noncontrast brain MRI study. Electronically Signed by Nick Stanley MD 12/11/2018 01:14 P
[2018-12-11] MEDS: AUGMENTIN 875 MG TAB PO SCH ×2 (13:37→21:46)
[2018-12-11] MEDS: METOCLOPRAMIDE INJ 10MG/2ML VIAL (J2765) IV PRN (13:37)
[2018-12-11] MEDS: POTASSIUM CHLORIDE 10 MEQ SR TABLET PO SCH ×2 (13:38→21:45)
[2018-12-11] MEDS: ASPIRIN 81 MG ENTERIC TAB PO SCH (13:38)
[2018-12-11] MEDS: MULTIVITAMINS/MINERALS THERAP 1 TAB PO SCH (13:38)
[2018-12-11] MEDS: VITAMIN D 1,000 INTERNATIONAL UNITS TABLET PO SCH (13:38)
[2018-12-11] MEDS: MAGNESIUM OXIDE 400 MG TAB (MAG-OX) PO SCH ×2 (13:39→21:44)
[2018-12-11] MEDS: FLECAINIDE 50MG TABLET PO SCH ×2 (13:39→21:46)
[2018-12-11] MEDS: CARISOPRODOL 350 MG TAB PO PRN (13:39)
[2018-12-11] MEDS: TAMSULOSIN 0.4 MG CAP PO SCH (13:39)
[2018-12-11] MEDS: LOSARTAN 50 MG TAB PO SCH (13:47)
[2018-12-11] MEDS: BUDESONIDE EC 3 MG CAP (ENTOCORT EC) PO SCH (13:47)
[2018-12-11 16:00] VITALS: BP 148/88
[2018-12-11 20:11] VITALS: BP 118/62
[2018-12-11] MEDS: DULoxetine 30 MG CAP (CYMBALTA) PO SCH (21:45)
[2018-12-11] MEDS: GABAPENTIN 300 MG CAP PO SCH (21:46)
[2018-12-11] MEDS: OMEPRAZOLE 20 MG CAP PO SCH (21:46)
[2018-12-11] MEDS: ATORVASTATIN 10 MG TAB PO SCH (21:46)
[2018-12-11] MEDS: TOPIRAMATE (TopAMAX) 25 MG TAB PO SCH (21:46)
[2018-12-11] MEDS: BISOPROLOL FUMARATE 5 MG TAB PO SCH (21:57)
[2018-12-11 23:59] VITALS: BP 136/96
[2018-12-12 04:45] VITALS: BP 110/65
[2018-12-12] MEDS: PERCOCET 5MG/325MG TAB PO PRN (04:54)
[2018-12-12 05:44] LABS: BASO % 0.4 % (0.0-1.0); EOS # 0.1 10^3/uL (0.0-0.50); EOS % 1.3 % (0.0-3.0); HEMATOCRIT 43.2 % (42.0-52.0); HEMOGLOBIN 14.3 g/dl (13.5-17.5); LYMPH # 1.3 10^3/uL (1.5-4.5); LYMPH % 17.4 % (24.0-44.0); MEAN CORPUSCULAR HEMOGLOBIN 28.5 pg (27.0-33.0); MEAN CORPUSCULAR HGB CONC 33.1 g/dl (32.0-36.5); MEAN CORPUSCULAR VOLUME 86.2 fl (80.0-96.0); MONO # 0.5 10^3/uL (0.0-0.8); NEUTROPHILS # 5.7 10^3/uL (1.8-7.7); NEUTROPHILS % 74.5 % (36.0-66.0); PLATELET COUNT, AUTOMATED 191 10^3/uL (150-450); RED BLOOD COUNT 5.01 10^6/uL (4.30-6.10); WHITE BLOOD COUNT 7.6 10^3/uL (4.0-10.0)
[2018-12-12 06:01] LABS: BLOOD UREA NITROGEN 18 MG/DL (7-18); CALCIUM LEVEL 8.9 MG/DL (8.5-10.1); CARBON DIOXIDE LEVEL 28 MEQ/L (21-32); CHLORIDE LEVEL 107 MEQ/L (98-107); CREATININE FOR GFR 0.87 MG/DL (0.70-1.30); GLOMERULAR FILTRATION RATE > 60.0 (>56); GLUCOSE, FASTING 164 MG/DL (70-100); MAGNESIUM LEVEL 2.2 MG/DL (1.8-2.4); POTASSIUM SERUM 4.5 MEQ/L (3.5-5.1); SODIUM LEVEL 140 MEQ/L (136-145)
[2018-12-12] MEDS: HumaLOG INSULIN (NovoLOG) PER UNIT SC SCH ×3 (07:30→16:57)
--- NOTE | 2018-12-12 08:16 | REP ---
Clinical: Uncontrolled Hypertension and chronic medical renal disease. Technique: Buck scale and color Doppler evaluation of the kidneys and renal vasculature using curved array transducer. Findings: The kidneys are essentially normal in contour size and echogenicity and reniform shape without hydronephrosis, nephrolithiasis, cystic or renal mass lesion. Right kidney measures 10.0 x 4.9 x 6.9 cm . Left kidney measures 12.6 x 4.3 x 6.1 cm . Bladder is incompletely distended and grossly normal by current evaluation. Prominent prostate gland measuring 4.2 x 3.2 x 4.6 cm. Color Doppler evaluation of the renal vasculature demonstrates normal arterial wave patterns, velocities, renal aortic ratios, resistive indices and the acceleration time. No sonographic evidence for renal arterial stenosis noted. Renal vein is patent. Right Kidney: Peak arterial velocity: 56.3 cm/sec . Renal aortic ratio: 0.9 . Resistive indices: 0.6 - 0.67 . Acceleration times: 0.03 - 0.05 . Left kidney: Peak arterial velocity: 55.0 cm/sec . Renal aortic ratio: 0.9 . Resistive indices: 0.64 - 0.75 . Acceleration times: 0.03 - 0.05 . Impression: 1. Normal sonographic appearance of the bilateral kidneys. 2. No evidence for renal arterial stenosis by Doppler interrogation. Electronically Signed by Giovanni Key MD 12/12/2018 08:08 A
[2018-12-12 09:00] VITALS: BP 130/79
[2018-12-12] MEDS ORDERED: SPIRONOLACTONE 25 MG TAB PO SCH (09:00)
[2018-12-12 09:19] VITALS: BP 130/79
[2018-12-12] MEDS: BUDESONIDE EC 3 MG CAP (ENTOCORT EC) PO SCH (09:19)
[2018-12-12] MEDS: amLODIPine 10 MG TAB PO SCH (09:19)
[2018-12-12] MEDS: MAGNESIUM OXIDE 400 MG TAB (MAG-OX) PO SCH (09:19)
[2018-12-12] MEDS: TAMSULOSIN 0.4 MG CAP PO SCH (09:19)
[2018-12-12] MEDS: ASPIRIN 81 MG ENTERIC TAB PO SCH (09:20)
[2018-12-12] MEDS: FLECAINIDE 50MG TABLET PO SCH (09:20)
[2018-12-12] MEDS: VITAMIN D 1,000 INTERNATIONAL UNITS TABLET PO SCH (09:20)
[2018-12-12] MEDS: LOSARTAN 50 MG TAB PO SCH (09:20)
[2018-12-12] MEDS: MULTIVITAMINS/MINERALS THERAP 1 TAB PO SCH (09:20)
[2018-12-12] MEDS: CYANOCOBALAMIN 500 MCG TAB PO SCH (09:20)
[2018-12-12] MEDS: AUGMENTIN 875 MG TAB PO SCH (09:20)
[2018-12-12] MEDS: ENOXAPARIN 40 MG/0.4 ML SYRINGE (J1650) SC SCH (09:21)
[2018-12-12] MEDS ORDERED: METO5TAB2 PO (09:26)
--- NOTE | 2018-12-12 10:27 | DS.PDOC ---
Discharge Summary General Date of Admission Dec 10, 2018 at 13:31 Date of Discharge 12/12/2018 Primary Care Physician: CHAPIN FREITAS DO Attending Physician: MECCA BOND MD Specialist/Consultants Involve: LAKSHMI SILVESTRE MD Specialist/Consultants Involve Cardiology: Dr. Bartholomew Discharge Summary PROCEDURES PERFORMED DURING STAY: None. ADMITTING DIAGNOSES: 1. Hypertensive urgency. 2. Hypokalemia. DISCHARGE DIAGNOSES: 1. Unilateral weakness likely secondary to complex migraine attack. 2. Hypertensive urgency. 3. Nausea and vomiting with possible underlying, undiagnosed gastroparesis. 4. Hypokalemia. 5. Diabetes mellitus with diabetic neuropathy. 6. Paroxysmal atrial fibrillation. 7. Benign prostatic hyperplasia. 8. Dyslipidemia. 9. Depression. 10. Gastric esophageal reflux disease. 11. Chronic back pain. 12. History of gastric bypass surgery. 13. Sinusitis. COMPLICATIONS/CHIEF COMPLAINT: Hypertensive Urgency Hypokalemia. HISTORY OF PRESENT ILLNESS: Mr. 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 He says that this is not unilateral, it is bilateral leg weakness. When he came to the emergency room, he was found to have elevated blood pressure of systolic 203. He also had frontal headache associated with this. He was given tizanidine because he does apparently have headaches with his complex migraine attacks. The patient was given labetalol 10 by the emergency room attending as well and was given his oral losartan 50 mg that he did not take this morning. Blood pressure now is systolic 150, and his headache has improved. He denies any chest pain or shortness of breath. He will be admitted for further management. HOSPITAL COURSE: Patient was admitted. In addition to patient's regular antihypertensive, Norvasc was added along with IV hydralazine as needed. Potassium was repleted in the emergency department. Daily potassium supplementation was added. Neurology was consulted for patient's complex migr rosaline and cardiology was consulted for flecainide management. Cardiology recommended he addition of spironolactone 25 mg by mouth every morning and amlodipine 5 mg by mouth daily. These prescriptions have been transmitted to the pharmacy upon discharge. No changes flecainide were made. Topamax was added. Renal ultrasound was obtained and was normal. Reglan was added for nausea and vomiting. Patient's weakness and nausea and vomiting improved. Continue treatment of sinusitis with Augmentin. Patient was discharged with follow-up with primary care provider, neurology, and cardiology. DISCHARGE MEDICATIONS: Please see below. ALLERGIES: Please see below. PHYSICAL EXAMINATION ON DISCHARGE: VITAL SIGNS: Please see below. GENERAL: Well-nourished, well-developed male, sitting on the edge of the bed, alert and conversant, answers questions appropriately, in no acute distress. HEENT: Atraumatic, normocephalic, PERRL, EOMI, oral mucosa appears pink and moist, nasal septum appears midline, nares are patent. NECK: Soft, supple, trachea midline, no lymphadenopathy appreciated, no thyro megaly. CARDIOVASCULAR EXAMINATION: Regular rate and rhythm, normal S1 and S2, no murmur, rub, click. RESPIRATORY EXAMINATION: Clear to auscultation bilaterally, adequate inspiratory and expiratory airway excursion, symmetric air entry throughout, no focal consolidations, no wheeze, rhonchi, crackles. ABDOMINAL EXAMINATION: Round, soft, nontender, nondistended, nonpainful to palpation, bowel sounds appreciated throughout. EXTREMITIES: Warm, dry, intact, without cyanosis or clubbing, no peripheral edema, muscle strength 5/5 in upper and lower extremities bilaterally. SKIN: Without lesion, excoriation, or bruising. NEUROLOGICAL EXAMINATION: No focal neurological deficits. PSYCHIATRIC EXAMINATION: Mood and affect appropriate. LABORATORY DATA: Please see below. IMAGIN. Chest x-ray, two-view, PA and lateral on 12/10/2018 - possible right basilar atelectasis. 2. CT head without contrast 12/10/2018 - no evidence for acute intracranial pathology or trauma/injury, ethmoid sinus disease. 3. MRI brain without contrast on 12/11/2018 - bilateral maxillary ethmoid sinus mucosal changes. 4. Renal ultrasound on 12/12/2018 - normal sonographic appearance of bilateral kidneys, no evidence for renal artery stenosis. PROGNOSIS: Table. ACTIVITY: As tolerated. DIET: Consistent carbohydrate. DISCHARGE PLAN: As outlined below. DISPOSITION: Home. DISCHARGE INSTRUCTIONS: 1. Follow-up with primary care provider, Dr. Freitas, in 7-10 days. 2. Follow-up with cardiology. 3. Follow-up with neurology. 4. START taking metoclopramide 5 mg by mouth 3 times a day prior to meals. ITEMS TO FOLLOWUP ON ON OUTPATIENT: 1. Complex migraines. 2. Consider evaluation for gastroparesis. DISCHARGE CONDITION: Stable. TIME SPENT ON DISCHARGE: Greater than 30 minutes. Vital Signs/I&Os Vital Signs Date Time Temp Pulse Resp B/P (MAP) Pulse Ox O2 Delivery O2 Flow Rate FiO2 12/12/18 09:19 73 130/79 12/12/18 09:00 96.9 18 97 12/10/18 14:30 Room Air 12/10/18 10:50 2.0 I&O- Last 24 Hours up to 6 AM 12/12/18 06:00 Intake Total 360 ml Output Total 975 ml Balance -615 ml Laboratory Data Labs 24H Laboratory Tests 2 12/11/18 13:30: Bedside Glucose (Misc Panel) 173H 12/11/18 16:44: Bedside Glucose (Misc Panel) 233H 12/11/18 21:59: Bedside Glucose (Misc Panel) 291H 12/12/18 04:44: Immature Granulocyte % (Auto) 0.4, White Blood Count 7.6, Red Blood Count 5.01, Hemoglobin 14.3, Hematocrit 43.2, Mean Corpuscular Volume 86.2, Mean Corpuscular Hemoglobin 28.5, Mean Corpuscular Hemoglobin Concent 33.1, Red Cell Distribution Width 12.1, Platelet Count 191, Neutrophils (%) (Auto) 74.5H, Lymphocytes (%) (Auto) 17.4L, Monocytes (%) (Auto) 6.0H, Eosinophils (%) (Auto) 1.3, Basophils (%) (Auto) 0.4, Neutrophils # (Auto) 5.7, Lymphocytes # (Auto) 1.3L, Monocytes # (Auto) 0.5, Eosinophils # (Auto) 0.1, Basophils # (Auto) 0.0, Nucleated Red Blood Cells % (auto) 0.0, Anion Gap 5L, Glomerular Filtration Rate > 60.0, Blood Urea Nitrogen 18, Creatinine 0.87, Sodium Level 140, Potassium Level 4.5#, Chloride Level 107, Carbon Dioxide Level 28, Calcium Level 8.9, Magnesium Level 2.2 CBC/BMP Laboratory Tests 12/12/18 04:44 Red Blood Count 5.01, Mean Corpuscular Volume 86.2, Mean Corpuscular Hemoglobin 28.5, Mean Corpuscular Hemoglobin Concent 33.1, Red Cell Distribution Width 12.1, Neutrophils (%) (Auto) 74.5 H, Lymphocytes (%) (Auto) 17.4 L, Monocytes (%) (Auto) 6.0 H, Eosinophils (%) (Auto) 1.3, Basophils (%) (Auto) 0.4, Neutrophils # (Auto) 5.7, Lymphocytes # (Auto) 1.3 L, Monocytes # (Auto) 0.5, Eosinophils # (Auto) 0.1, Basophils # (Auto) 0.0, Calcium Level 8.9 FSBS Laboratory Tests Test 12/11/18 13:30 12/11/18 16:44 12/11/18 21:59 Range/Units Bedside Glucose (Misc Panel) 173 233 291 70-105 MG/DL Discharge Medications Scheduled (Citracal Petites/Vitamin 200-250 mg-Unit) 1 Tab Tab, 2 TAB PO QHS, (Reported) (Trulicity) 0.75 Mg/0.5 Ml Inj, 0.75 MG SC QWEEK, (Reported) SATURDAYS. Amlodipine Besylate (Amlodipine Besylate) 5 Mg Tab, 5 MG PO DAILY Amoxicillin/Clavulanate Potas (Augmentin 875-125 mg) 1 Tab Tab, 1 TAB PO BID, (Reported) STARTED: 12/03/18. TO TAKE FOR 10 DAYS. Aspirin (Aspirin EC) 81 Mg Tabec, 81 MG PO DAILY, (Reported) Atorvastatin Calcium (Atorvastatin Calcium) 10 Mg Tab, 10 MG PO QHS, (Reported) Bisoprolol Fumarate (Bisoprolol Fumarate) 5 Mg Tab, 5 MG PO QHS, (Reported) Budesonide (Budesonide) 3 Mg Cap, 6 MG PO DAILY, (Reported) TAPERING DOSE. 2 CAPSULES DAILY X 1 WEEK STARTED 12/09/18. THEN 1 CAPSULE DAILY X 1 WEEK THEN STOP. Cholecalciferol (D-5000) 5,000 Unit Tab, 5,000 UNIT PO DAILY, (Reported) Cyanocobalamin (Vitamin B-12) 500 Mcg Tab, 500 MCG PO DAILY, (Reported) Duloxetine Hcl (Cymbalta) 60 Mg Cap, 60 MG PO QHS, (Reported) Empagliflozin (Jardiance) 10 Mg Tab, 10 MG PO DAILY, (Reported) Flecainide Acetate (Flecainide Acetate) 50 Mg Tab, 50 MG PO BID, (Reported) Gabapentin (Gabapentin) 300 Mg Cap, 300 MG PO QHS, (Reported) Gabapentin (Gabapentin) 100 Mg Cap, 100 MG PO DAILY, (Reported) Losartan Potassium (Losartan Potassium) 50 Mg Tab, 50 MG PO DAILY, (Reported) Magnesium Oxide (Magnesium) 400 Mg Tab, 400 MG PO BID, (Reported) Melatonin (Melatonin) 5 Mg Tab, 5 MG PO QHS, (Reported) Metformin Hydrochloride (Metformin Hydrochloride E) 500 Mg Tab, 1,000 MG PO BID, (Reported) Metoclopramide HCl (Metoclopramide HCl) 5 Mg Tab, 5 MG PO TID Take prior to meals Multivitamins *[facility] STOCKED* (Thera M Plus *[facility] STOCKED*) 1 Tab Tab, 2 TAB PO DAILY, (Reported) Omeprazole (Omeprazole) 40 Mg Cap, 40 MG PO QHS, (Reported) Potassium Chloride (Klor-Con M20) 20 Meq Tabcr, 40 MEQ PO BID, (Reported) Spironolactone (Aldactone) 25 Mg Tab, 25 MG PO QAM Sucralfate (Carafate) 1 Gm Tab, 1 GM PO BID, (Reported) Tamsulosin Hydrochloride (Flomax) 0.4 Mg Cap, 0.4 MG PO DAILY, (Reported) Yeast (S. Boulardii)(S. Cerevi (Probiotic) 250 Mg Cap, 1 CAP PO DAILY, (Reported) Scheduled PRN Albuterol Sulfate (Proair Hfa) 108 Mcg/Act Aer, 2 PUFF INH Q4H PRN for SHORTNESS OF BREATH, (Reported) Benzonatate (Benzonatate) 200 Mg Cap, 200 MG PO TID PRN for COUGH, (Reported) Carisoprodol (Soma) 350 Mg Tab, 350 MG PO DAILY PRN for MUSCLE SPASMS, (R eported) Ondansetron (Ondansetron Odt) 8 Mg Tab, 8 MG PO Q8H PRN for NAUSEA, (Reported) Oxycodone/Acetaminophen (Oxycodone/Acetaminophen 5-325 mg) 1 Tab Tab, 1 TAB PO QID PRN for PAIN, (Reported) Tizanidine Hydrochloride (Tizanidine HCl) 2 Mg Cap, 2 MG PO TID PRN for SPASMS, (Reported) Allergies Coded Allergies: No Known Drug Allergy (Verified Allergy, Unknown, 05/29/18) PATRICIA LAKE DO Dec 12, 2018 10:27
[2018-12-12] MEDS: SUCRALFATE 1 GM TAB PO SCH ×2 (11:31→16:42)
[2018-12-12 12:00] VITALS: BP 132/74
[2018-12-12] MEDS ORDERED: AMLO5TAB6 PO (13:02)
[2018-12-12] MEDS ORDERED: ALDA25TA2 PO (13:02)
[2018-12-12] MEDS: tiZANidine 4 MG TAB PO PRN (13:10)
[2018-12-12 16:00] VITALS: BP 113/57
[2018-12-12] MEDS: METOCLOPRAMIDE INJ 10MG/2ML VIAL (J2765) IV PRN (16:58)
[2018-12-12] MEDS ORDERED: TOPA1TAB PO (17:10)
[2018-12-12] MEDS: TOPIRAMATE (TopAMAX) 25 MG TAB PO SCH (18:05)
[2018-12-13] MEDS ORDERED: amLODIPine 5 MG TAB PO SCH (09:00)
--- NOTE | 2018-12-13 21:54 | CR ---
DATE OF CONSULTATION: 12/12/2018 ATTENDING PROVIDER: Dr. Beauchamp REASON FOR THE CONSULT: Atrial fibrillation. HISTORY OF PRESENT ILLNESS: A 53-year-old male came to the hospital on 12/10/2018 with generalized weakness and inability to ambulate associated with headaches. Upon arrival at the emergency room (ER), he was found to have a systolic blood pressure reported to be between 200-205 mmHg. He was treated in the ER with labetalol and he was restarted on his medications. When being admitted, his systolic blood pressure was about 150 mmHg. He was about to be discharged from the floor and was found to have some irregular heartbeats and he was transferred to progressive care unit (PCU). Cardiology consult was called. When I saw Mr. Lopez in PCU on 12/12/2018, he was supine in bed in no acute distress at rest and his was at the bedside. He stated he is ready to go home. He denies any chest pain, palpitations, shortness of breath. There is no orthopnea or paroxysmal nocturnal dyspnea (PND). There is no evidence of bleeding. There is no cough. He does have nausea and this has been a problem. He is being evaluated by gastroenterology (GI), Dr. Lana Jerry, in [place], and he is being transferred to Dr. Robles's office for further evaluation because gastrointestinal (GI) workup has been negative. He does have a history of gastric bypass for obesity. He has a past medical history positive for: 1. Paroxysmal atrial fibrillation, for which he has been on flecainide. 2. Hypertension. 3. Hyperlipidemia. 4. Type 2 diabetes mellitus. 5. Complex migraine headaches. 6. Guillain-Minerva. 7. Nephrolithiasis. 8. Chronic hypokalemia. 9. Epilepsy/gout 10. Anxiety/depression. 11. Insomnia. 12. Chronic back pain. He does have a history of: 13. Obstructive sleep apnea. 14. Gastroesophageal reflux disease (GERD) with dyspepsia. There is no history of coronary artery disease, myocardial infarction, implantable cardioverter defibrillator (ICD), kidney disease, lung disease. PAST SURGICAL HISTORY: Is positive for: 1. Gastric bypass in 2010. 2. Right knee meniscal repair in 2013. 3. Abdominal surgery in 2013. 4. Vasectomy in 1994. 5. Kidney stones in 2009. 6. He also has had open reduction internal fixation surgery for a fracture of the left arm. FAMILY HISTORY: Positive for heart disease. SOCIAL HISTORY: Patient lives with his and he does not smoke or abuse alcohol. He has no known drug allergies. ADVANCE DIRECTIVE: Patient is a FULL CODE. PHYSICAL EXAMINATION: Patient is alert and oriented, in no acute distress at rest and very pleasant. VITAL SIGNS: When I saw him revealed a blood pressure of 130/79, with a pulse of 73, respirations 18, and his maximum temperature was 96.9 degrees Fahrenheit with an oxygen saturation of 97% on room air. EXAMINATION OF THE HEAD: Atraumatic. NECK: Supple. No jugular venous distention (JVD) or carotid bruits. LUNGS: Clear bilaterally to auscultation without any wheezing or crackles. HEART EXAMINATION: Revealed normal S1, S2 without gallops. The point of maximum impulse (PMI) is nondisplaced. There is no rub. I could not appreciate any murmurs. ABDOMEN: Unremarkable. EXTREMITIES: With no pedal edema. NEUROLOGICAL EXAMINATION: Negative for focal deficits. LABORATORY DATA: Complete blood count (CBC) done on 12/12/2018 revealed a WBC of 7.6, hemoglobin 14.3, hematocrit 43.2 and platelets 191,000. Basic metabolic panel (BMP) revealed a sodium of 140, potassium 4.5, chloride 107, CO2 28, BUN 18, creatinine 0.87, GFR more than 60, fasting glucose 164 and calcium 8.9, serum magnesium 2.2. PT on admission was 12.1 with an INR of 0.89 and a PTT of 32.0. Chest x-ray on 12/10/2018 revealed right basilar atelectasis, otherwise unremarkable. No cardiomegaly. No manifestation of heart failure or pleural effusion. Head CT without contrast on 12/10/2018 revealed no evidence of acute intracranial pathology. Ethmoid sinus disease noted. MRI of the brain done on 12/11/2018 revealed bilateral maxillary ethmoid sinus mucosal changes. Otherwise, a normal study. Renal ultrasound on 12/12/2018 revealed a normal study. No evidence of renal artery stenosis by Doppler. Telemetry was reviewed and revealed normal sinus rhythm. Mr. Godfrey Martinez Jr John., seems to be stable from a cardiac condition and if there are no medical issues, he can be discharged home. This was discussed with him, his , as well as covering hospitalist. I have made some changes in his medications. I have decreased the amlodipine and he was started on spironolactone and this probably with prevent severe hypokalemia. He will have a BMP done in about a week after starting it and he will continue to follow with his primary, Dr. Nory Motley and also with his senior database engineer, Dr. Jennifer Queen. Both patient and his are manifested understanding. They know that he needs the blood test to check his BUN and creatinine and serum potassium. Regarding the heart, there was a concern on that was sinus rhythm with artifact. He is currently on aspirin for prevention of thromboembolic events. He had developed bleeding in the past with Coumadin and Xarelto. He does not want to start any anticoagulation therapy at this present time. He, however, might benefit and he is well aware of that. Maybe in the future we can try Eliquis because they have been sure there is less bleeding risk with it. It was a pleasure to participate in the care of Mr. Godfrey Michelle Lopez Jr., for his underlying cardiac condition. Once again, he can be discharged home and he will call the office for an appointment. Dr. Queen will be informed.
== END 2018-12-12 18:12 | disposition home or self-care (01) ==
LOC: M ED 09:50 → M ED INP 13:31 → M MSPAV 15:00 → M PCU 17:03
PROVIDERS: ADMIT Internal Medicine; ATTEND Internal Medicine
DX: R53.1 Weakness (principal); I16.0 Hypertensive urgency; E87.6 Hypokalemia; E11.40 Type 2 diabetes mellitus with diabetic neuropathy, unspecified; I48.0 Paroxysmal atrial fibrillation; N40.0 Benign prostatic hyperplasia without lower urinary tract symptoms; E78.5 Hyperlipidemia, unspecified; F32.9 Major depressive disorder, single episode, unspecified; K21.9 Gastro-esophageal reflux disease without esophagitis; M54.5 Low back pain; Z98.84 Bariatric surgery status; Z79.899 Other long term (current) drug therapy
CPT/HCPCS: 36415; 70450; 70551; 71046; 76775; 80048; 80053; 80076; 82550; 82553; 83735; 84100; 84439; 84443; 84484; 85025; 85610; 85730; 93005; 93041; 93975; 94760; 96372; 96374; 96375; 96376; 97165; 99285; J1650; J2405; J2765; Q0162

== ENCOUNTER → 2018-12-28 | Outpatient (REF) | payer BC ==
[~2018-12-28] MED LIST changes: +ALBU83IN NEB; +BENZ200C70 PO; +BUDE3CAP PO; +JARD1TAB PO; +LOSA50TA88 PO; +MELA5TAB17 PO; +METF-723 PO; +METO5TAB2 PO; +ONDA8TAB8 PO; +OXYC1TAB23 PO; +PROAAER10 INH; +PROB250C PO; +SUCR1TA PO; +TESS100C PO; +TOPA1TAB PO
[2018-12-28 12:28] LABS: HEMATOCRIT 44.1 % (42.0-52.0)
[2018-12-28 13:25] LABS: PERCENT SATURATION 16.8 % (19.7-50.0); PHOSPHORUS LEVEL 3.8 MG/DL (2.5-4.9)
== END ==
LOC: M LAB REF 11:56
PROVIDERS: ATTEND Internal Medicine
DX: K91.2 Postsurgical malabsorption, not elsewhere classified (principal); Z98.84 Bariatric surgery status

== ENCOUNTER → 2019-01-05 | Outpatient (CLI) | payer BC ==
--- NOTE | 2019-01-05 11:15 | REP ---
MR CERVICAL SPINE WITHOUT CONTRAST: HISTORY: Neck pain. COMPARISON: 10/24/2015 A diffuse disc bulge is present at the C3-4 level. There is minimal effacement of the thecal sac without spinal cord compression. Uncinate process hypertrophy is present on the left. This produces mild narrowing of the left C4 neural foramen. The right C3 neural foramen is patent. A disc bulge is present at the C4-5 level. There is minimal effacement of the thecal sac without spinal cord compression. Bilateral uncinate process hypertrophy is present. This produces mild narrowing of the C4 neural foramina. A disc bulge and small central disc protrusion are present at the C5-6 level. There is minimal effacement of the thecal sac without spinal cord compression. Bilateral uncinate process hypertrophy is present. This produces mild and moderate narrowing of the right and left C5 neural foramina, respectively. A disc bulge is present at the C6-7 level. There is minimal effacement of the thecal sac without spinal cord compression. Bilateral uncinate process hypertrophy is present. This produces moderate and mild narrowing of the right and left C6 neural foramina, respectively. There is no other disc bulge or herniation. The remaining neural foramina are patent. The spinal cord is normal in signal intensity. The C6-7 intervertebral disc is decreased in height, consistent with disc degeneration. Normal signal intensity is present in the cervical vertebral bodies. IMPRESSION: There is cervical spondylosis at the C3-4 through C6-7 levels without spinal cord compression. The foraminal narrowing on the right at the C3-4 through C5-6 levels is a new finding. There has been progression of the foraminal narrowing on the left at the C5-6 level and on the right at the C6-7 level. Electronically Signed by Ralph Bernstein MD 01/05/2019 11:17 A
== END ==
LOC: M RAD 09:30
PROVIDERS: ATTEND Nurse Practitioner Family
DX: M47.812 Spondylosis without myelopathy or radiculopathy, cervical region (principal); M48.02 Spinal stenosis, cervical region

== ENCOUNTER → 2019-02-02 | Outpatient (CLI) | payer BC ==
[~2019-02-02] MED LIST changes: +BUPIVACAINE HCL 0.25% 30 ML VIAL As Ordered ONE; +ISOVUE-M 300 61% 15ML VIAL (Q9967) As Ordered ONE; +LIDOCAINE 1% SDV INJ 30 ML VIAL As Ordered ONE; +TRIAMCINOLONE ACETONIDE SUSP 40 MG/ML VIAL (J3301) As Ordered ONE; +diazePAM 5 MG TAB As Ordered ONE; +oxyCODONE 5MG TAB As Ordered ONE
--- NOTE | 2019-02-02 17:43 | REP ---
Cervical spine: Two views. Limited study. History: Cervical facet block for pain. 14 seconds of fluoroscopy time is reported. Findings: A sequence of two last image hold fluoroscopically obtained spot radiographs of the cervical spine document various needle positions and contrast injections associated with injection procedure. Electronically Signed by Nick Stanley MD 02/03/2019 07:59 A
--- NOTE | 2019-02-08 00:11 | ECWPNPC ---
PATIENT NAME: HAI DAIGLE : 1965 GENDER: MALE VISIT DATE: 02/02/2019 DISCHARGE DATE: 02/02/191628 VISIT LOCKED DATE TIME: PHYSICIAN: BONY ANTOINE MD RESOURCE: BONY ANTOINE MD REASON FOR APPOINTMENT 1. C3-C4, C4-C5 THERAPEUTIC FACET BLOCK HISTORY OF PRESENT ILLNESS HISTORY OF PRESENT ILLNESS: PAIN THE PATIENT DESCRIBES THE PAIN... FALL RISK SCREENING: SCREENING :NO FALLS REPORTED IN THE LAST YEAR CURRENT MEDICATIONS TAKING AMLODIPINE BESYLATE 5 MG TABLET 1 TABLET ORALLY ONCE A DAY, NOTES: 02/02/19 1700 TAKING ASPIR-81 81 MG TABLET DELAYED RELEASE 1 TABLET ORALLY EVERY OTHER DAY, NOTES: 02/02/19699 TAKING CITRACAL PLUS 400MG TABLET 2 TABS ORALLY AT BEDTIME, NOTES: 02/01/19 PM TAKING FLECAINIDE ACETATE 50 MG TABLET 1 TABLET ORALLY EVERY 12 HRS, NOTES: 02/02/19699 TAKING VITAMIN D3 MAXIMUM STRENGTH 5000 UNIT CAPSULE 1 CAPSULE ORALLY DAILY, NOTES: 02/02/19699 TAKING VITAMIN B-12 500 MCG TABLET 1 TABLET ORALLY ONCE A DAY, NOTES: 02/02/19699 TAKING TRULICITY 0.75 MG/0.5ML SOLUTION PEN-INJECTOR SUBCUTANEOUS WEEKLY, NOTES: LAST FRIDAY TAKING PRILOSEC 40 MG CAPSULE DELAYED RELEASE 1 CAPSULE ORALLY ONCE A DAY, NOTES: 02/01/19 PM TAKING POTASSIUM BICARB & CHLORIDE 20 MEQ PACKET 2 TABS ORALLY TWICE A DAY, NOTES: 02/01/19699 TAKING METFORMIN HCL 1000 MG TABLET 1 TABLET WITH MEALS ORALLY TWICE DAILY, NOTES: 02/01/19 AM TAKING PROBIOTIC 1 CAPSULE 1 CAP ORALLY DAILY, NOTES: 02/02/19699 TAKING MAGNESIUM 400 MG CAPSULE 1 CAP ORALLY BID, NOTES: 02/02/19699 TAKING BISOPROLOL FUMARATE 5 MG TABLET 1 TABLET ORALLY ONCE A DAY, NOTES: 02/01/19 2100 TAKING LIPITOR 10 MG TABLET 1 TABLET ORALLY ONCE A DAY, NOTES: 02/01/19 PM TAKING MULTI FOR HIM TABLET 2 TABS ORALLY DAILY, NOTES: 02/01/19 PM TAKING JARDIANCE 10 MG TABLET 1 TABLET ONCE A DAY, NOTES: 02/01/19699 TAKING TAMSULOSIN HCL 0.4 MG CAPSULE 1 CAPSULE ONCE A DAY, NOTES: 3/25/19 0700 TAKING MELATONIN 5 MG TABLET 1 TABLET AT BEDTIME NEEDED WITH FOOD ORALLY ONCE A DAY, NOTES: NONE RECTLY TAKING ZOFRAN 8 MG TABLET 1 TABLET ORALLY Q 8 HOURS NEEDED, NOTES: NONE LATELY TAKING CYMBALTA 60 MG CAPSULE DELAYED RELEASE PARTICLES 1 CAPSULE ORALLY BEFORE BEDTIME, NOTES: 02/01/19 PM TAKING TIZANIDINE HCL 2 MG TABLET 1 TABLET NEEDED ORALLY EVERY 8 HRS, NOTES: 02/01/19 PM TAKING GABAPENTIN 300 MG CAPSULE 1 CAPSULE ORALLY BEFORE BEDTIME, NOTES: 02/01/19 PM TAKING PERCOCET 5-325 MG TABLET 1 TO 2 TAB ORALLY Q6H PRN MDD 4, NOTES: 02/01/19 PM TAKING SOMA 350 MG TABLET 1 TABLET NEEDED ORALLY Q8H PRN MDD3, NOTES: 02/01/19 PM NOT-TAKING ENTEREG 12 MG CAPSULE 1 CAPSULE ORALLY TAPPERING DOSE NOT-TAKING GABAPENTIN 100 MG CAPSULE 1 CAPSULE ORALLY IN AM NOT-TAKING COLCHICINE 0.6 MG CAPSULE ORALLY DIRECTED, NOTES: NONE RECENTLY MEDICATION LIST REVIEWED AND RECONCILED WITH THE PATIENT PAST MEDICAL HISTORY DIABETES MIGRAINES PAF - INTERMITTENT A-FIB HTN GERD HIGH CHOLESTEROL GUILLAIN BARRE PNEUMONIA ILIEITIS GOUT A FIB WITH RVR DIVERTICULITIS BPH ED ILEITIS BROKEN LEFT RING FINGER MULTIPLY GI PROBLEMS ALLERGIES N.K.D.A. SURGICAL HISTORY BOWEL RESECTION 2013 RIGHT KNEE ARTHROSCOPY 2013 GASTRIC BYPASS RIGHT INGUINAL HERNIA REPAIR 06/24/18 CHOLECYSTECTOMY 11/2018 FAMILY HISTORY FATHER: , DIAGNOSED WITH DIABETES, CANCER MOTHER: , DIABETES, HYPERTENSION, OTHER SIBLINGS: ALIVE 4 BROTHER(S) , 2 SISTER(S) . 1 SON(S) , 1 DAUGHTER(S) - HEALTHY. 1 SISTER . 1 SISTER HAS ALOT OF MEDICAL ISSUES ALSO. SOCIAL HISTORY GENERAL: TOBACCO USE ARE YOU A:NONSMOKER ALCOHOL SCREENING DID YOU HAVE A DRINK CONTAINING ALCOHOL IN THE PAST YEAR?YES HOW OFTEN DID YOU HAVE A DRINK CONTAINING ALCOHOL IN THE PAST YEAR?MONTHLY OR LESS (1 POINT) HOW MANY DRINKS DID YOU HAVE ON A TYPICAL DAY WHEN YOU WERE DRINKING IN THE PAST YEAR?1 OR 2 (0 POINTS) HOW OFTEN DID YOU HAVE SIX OR MORE DRINKS ON ONE OCCASION IN THE PAST YEAR?NEVER (0 POINTS) POINTS1 INTERPRETATIONNEGATIVE RECREATIONAL DRUG USE DRUG USE?NO CAFFEINE CAFFEINE USE?YES 1-2 SODA/DAY SEXUAL HX HAD SEX IN THE LAST 12 MONTHS (VAGINAL, ORAL, OR ANAL)?NO HAVE YOU EVER HAD AN STD?NO TAOIST VEINISHQ41 OTHER LANGUAGE LANGUAGES SPOKEN:SLOVENIAN EDUCATION LEVEL OF EDUCATION:FINISHED HIGH SCHOOL LEARNING BARRIERS / SPECIAL NEEDS CHANGE FROM LAST VISIT?NO BARRIERS TO LEARNING?NO HEARING IMPAIRED?NO VISION IMPAIRED?YES :CORRECTIVE LENSES COGNITIVELY IMPAIRED?NO READINESS TO LEARN?YES LEARNING PREFERENCES?NO LEARNING CAPABILITIES PRESENT?YES EMOTIONAL BARRIERS?NO SPECIAL DEVICES?NO TEACHER EDUCATION DIRECTOR NEEDED?NO DOMESTIC VIOLENCE DO YOU FEEL SAFE IN YOUR ENVIRONMENT?YES 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 EXERCISE: WALKS. MARITAL STATUS: . OTHERS AT HOME: SPOUSE. PAIN CLINIC PFS, CLERGY, PUBLIC HEALTH REFERRALS PFS REFERRAL NEEDED?NO CLERGY REFERRAL NEEDED?NO PUBLIC HEALTH REFERRAL NEEDED?NO WAS THE PROVIDER NOTIFIED OF ANY PERTINENT INFO? N/A HAS THE PATIENT BEEN EDUCATED REGARDING HIS/HER PLAN OF CARE?YES HAS THE PATIENT BEEN EDUCATED REGARDING PAIN, THE RISK FOR PAIN, THE IMPORTANCE OF EFFECTIVE PAIN MANAGEMENT, AND THE PAIN ASSESSMENT PROCESS?YES ADVANCE DIRECTIVE ADVANCE DIRECTIVE DISCUSSED WITH PATIENT:YES HCP ON FILE AUDREY [phone] 12/01/18 REVIEWED WITH PT. AD. HOSPITALIZATION/MAJOR DIAGNOSTIC PROCEDURE SURGERY RELATED GUILLAIN BARRE REQUIRING PLASMAPHERESIS, IVIG, STEROIDS AND INTUBATION [facility] 09/2015 PNEUMONIA, ILEITIS 02/2018 REVIEW OF SYSTEMS REVIEWED BY: PROVIDER: . CONSTITUTIONAL: ANY CHANGE IN YOUR MEDICAL CONDITION? NO . CHILLS NO . FEVER NO . INFECTION: DO YOU HAVE NEW INFECTIONS? NO . DO YOU HAVE HISTORY OF MRSA? NO . MUSCULOSKELETAL: ANY NEW PATTERNS OF PAIN OR NUMBNESS? NO . GASTROENTEROLOGY: ANY NEW CHANGE IN BOWEL CONTROL? NO . GENITOURINARY: ANY NEW CHANGE IN BLADDER CONTROL? NO . IS THERE A CHANCE YOU COULD BE ? NO . HEMATOLOGY/LYMPH: DO YOU TAKE ANY BLOOD THINNERS? (FOR EXAMPLE- COUMADIN, PLAVIX, AGGRENOX, PLATEL, PRADAXA, OR XARELTO) NO . WHEN WAS YOUR LAST DOSE? DATE: TIME: . NEUROLOGY: HAVE YOU FALLEN IN THE PAST 12 MONTHS? YES, PRIOR TO LAST VISIT . ANY NEW EXTREMITY NUMBNESS OR WEAKNESS? NO . CARDIOLOGY: DO YOU HAVE A PACEMAKER OR DEFIBRILLATOR? NO . RESPIRATORY: HAVE YOU BEEN SICK IN THE PAST WEEK? NO . FEVER NO . FLU LIKE SYMPTOMS? NO . COUGH NO . INTEGUMENTARY: DO YOU HAVE ANY RASHES OR OPEN SORES? NO . ALLERGIC/IMMUNO: ARE YOU ALLERGIC TO IV DYE? NO . ANY NEW ALLERGIES? NO . PSYCHIATRIC: DO YOU HAVE THOUGHTS OF HURTING YOURSELF OR SOMEONE ELSE? NO . ARE YOU ABUSED, NEGLECTED, OR IN AN UNSAFE ENVIRONMENT? NO . ENDOCRINOLOGY: ARE YOU DIABETIC? NO . OTHER: DO YOU NEED ANY PRESCRIPTIONS? NO . IF YES, PLEASE LIST: ____ . ANY NEW PROBLEMS WITH YOUR MEDICATIONS? NO . WHEN DID YOU LAST EAT? 02/02/19 1000 . WHEN DID YOU LAST DRINK? 02/02/19 1000 . WHAT DID YOU LAST DRINK? WATER . NAME OF PERSON DRIVING YOU HOME? AUDREY . DO YOU HAVE ANY OTHER QUESTIONS OR CONCERNS NO . VITAL SIGNS WT 179.1 LBS, HT 70 IN, BMI 25.70 INDEX, BP 121/75 MM HG, HR 80 /MIN, RR 18 /MIN, TEMP 97.1 F, OXYGEN SAT % 100%, NA INITIALS SC 12:17, REVIEWED BY: EM. ASSESSMENTS SPONDYLOSIS OF CERVICAL REGION WITHOUT MYELOPATHY OR RADICULOPATHY - M47.812 (PRIMARY) PROCEDURES PN CERVICAL FACET BLOCK LOW BILATERAL CERVICAL PRE PROCEDURE DIAGNOSIS CERVICAL SPONDYLOSIS POST PROCEDURE DIAGNOSIS CERVICAL SPONDYLOSIS PROCEDURE BILATERAL C3-C4 AND BILATERAL C4-C5 CERVICAL FACET BLOCK SURGEON DR. BONY ANTOINE GENERATION TECHNOLOGIST NONE ANESTHESIA LOCAL PRE PROCEDURE NOTE THE PATIENT HAS HISTORY OF CHRONIC CERVICAL PAIN. I EVALUATE THE PATIENT AND REVIEWED THE CHART. I WENT OVER THE RISKS, ALTERNATIVES, AND BENEFITS ASSOCIATED WITH THIS PROCEDURE. THE PATIENT WOULD LIKE TO PROCEED AND GIVE CONSENT TO PERFORMED THE PROCEDURE. THE PATIENT DENIES UNEXPLAINABLE WEIGHT LOSS, FEVER, CHILLS, OR NEW CHANGES IN URINARY OR BOWEL CONTROL. DESCRIPTION OF PROCEDURE THE PATIENT WAS BROUGHT TO THE PROCEDURE ROOM AND PLACED IN THE PRONE POSITION. THE CERVICOTHORACIC AREA WAS CLEANED WITH CHLORAPREP SOLUTION AND DRAPED ASEPTICALLY. THE PROCEDURE WAS DONE UNDER STERILE CONDITIONS. I CHECKED LATERALITY AND THE LEVEL WHERE THE PROCEDURE WAS GOING TO BE PERFORMED WITH THE PATIENT AND THE SUPPORTING STAFF AT THE MOMENT OF THE TIME OUT IN THE PROCEDURE ROOM. UNDER FLUOROSCOPIC GUIDANCE, TARGET POINT WAS SELECTED AT THE RIGHT AND LEFT C3-C4 AND RIGHT AND LEFT C4-C5 CERVICAL FACET JOINT. TARGET POINTS WERE SELECTED AFTER LATERAL ROTATION AND TILT OF THE MAGNIFIER OF THE C-ARM. LIDOCAINE 0.5% WAS USED TO NUMB THE SKIN AND THE SUBCUTANEOUS TISSUE BELOW IT. SPINAL NEEDLES, 22-GAUGE, WERE ADVANCED UNDER FLUOROSCOPIC GUIDANCE AND FOLLOWING PATIENT FEEDBACK UNTIL THE TARGETS WERE TOUCHED. THE POSITION OF THE NEEDLES WAS VERIFIED WITH AP AND LATERAL VIEWS. AFTER PROPER POSITION OF THE NEEDLES WAS ACHIEVED, ISOVUE M DYE 30, 0.1 ML WAS INJECTED SHOWING SPREAD OF THE DYE. THEN A SOLUTION OF 0.9 ML OF BUPIVACAINE 0.125% AND KENALOG 10 MG WAS INJECTED AT EACH SITE. THERE WAS NO EVIDENCE OF BLOOD, PARESTHESIA OR CEREBROSPINAL FLUID DURING THE PROCEDURE. THE PATIENT WAS SENT TO THE RECOVERY ROOM. THE PATIENT WAS MOVING THE EXTREMITIES AND DOING WELL. THERE WAS NO COMPLICATION DURING THE PROCEDURE. FLUOROSCOPY TIME WAS 14 SECONDS POST PROCEDURE NOTE THE PATIENT WILL BE SEEN IN A FOLLOW UP IN THE NEXT FEW WEEKS. INSTRUCTIONS WERE GIVEN, QUESTIONS WERE ANSWERED, AND THE PATIENT EXPRESSED UNDERSTANDING AND AGREES WITH THE PLAN. I, WILBER MENDOZA, DOCUMENTED THE ABOVE INFORMATION ACTING A SCRIBE FOR DR. ANTOINE. I HAVE REVIEWED THE ABOVE DOCUMENT, WRITTEN BY WILBER CANAS AND I VERIFY THAT IT IS ACCURATE. DIAGNOSTIC IMAGING [facility] FACET BLOCK (PAIN)[id number] PROCEDURE CODES 6045F RADXPS IN END [id number] PXD [id number] INJ PARAVERT F JNT C/T 1 LEV, MODIFIERS: 50 [id number] INJ PARAVERT F JNT C/T 2 LEV, MODIFIERS: 50 DISPOSITION & COMMUNICATION FOLLOW UP 3 WEEKS ELECTRONICALLY SIGNED BY BONY ANTOINE MD, MD ON 02/07/2019 AT 07:55 PM EDT DISCLAIMER : THIS IS A VISIT SUMMARY EXTRACTED FROM THE [facility] CHART. IT IS NOT A COPY OF THE [employer] PROGRESS NOTE. MTDD
== END ==
LOC: M PAIN 12:00
PROVIDERS: ATTEND Anesthesiology
DX: G89.29 Other chronic pain (principal); M47.812 Spondylosis without myelopathy or radiculopathy, cervical region; E11.9 Type 2 diabetes mellitus without complications; G43.909 Migraine, unspecified, not intractable, without status migrainosus; I10 Essential (primary) hypertension; K21.9 Gastro-esophageal reflux disease without esophagitis; E78.00 Pure hypercholesterolemia, unspecified; G61.0 Guillain-Barre syndrome; Z79.82 Long term (current) use of aspirin; Z79.84 Long term (current) use of oral hypoglycemic drugs; Z79.891 Long term (current) use of opiate analgesic; Z79.899 Other long term (current) drug therapy; Z98.84 Bariatric surgery status; Z87.39 Personal history of other diseases of the musculoskeletal system and connective tissue; Z86.79 Personal history of other diseases of the circulatory system
CPT/HCPCS: 64490; 64491; J3301; Q9967

== ENCOUNTER → 2019-03-01 | Outpatient (CLI) | payer BC ==
[~2019-03-01] MED LIST changes: -/BISO10TA OR; -/INSULEV; -/PANT40TA; -/WARF3TA; -/WARF3TA OR; -/WARF5TA; -/WARF5TA OR; +ASPI-1 PO; -ASPI325T PO; -BUPIVACAINE HCL 0.25% 30 ML VIAL As Ordered ONE; +COUM1TAB17; +COUM1TAB17 OR; +COUM1TAB19; +COUM1TAB19 OR; +HYDR-3715 PO; -ISOVUE-M 300 61% 15ML VIAL (Q9967) As Ordered ONE; +LEVE0.01; -LIDOCAINE 1% SDV INJ 30 ML VIAL As Ordered ONE; -MAGN1TAB25 PO; +MAGN1TAB26 PO; -NORC1TAB4 PO; +NORC1TAB7 PO; -NORCOTAB PO; +PROT1TAB2; -TRIAMCINOLONE ACETONIDE SUSP 40 MG/ML VIAL (J3301) As Ordered ONE; -VALS1TAB47 PO; +VALS1TAB67 PO; +VITA500T17 PO; -VITA500T53 PO; +ZEBE1TAB OR; -diazePAM 5 MG TAB As Ordered ONE; -oxyCODONE 5MG TAB As Ordered ONE
--- NOTE | 2019-03-17 01:03 | ECWPNPC ---
PATIENT NAME: HAI DAIGLE : 1965 GENDER: MALE VISIT DATE: 03/01/2019 DISCHARGE DATE: 03/01/19 1427 VISIT LOCKED DATE TIME: PHYSICIAN: BRITT LANCASTER RESOURCE: BRITT LANCASTER REASON FOR APPOINTMENT 1. POST PROC HISTORY OF PRESENT ILLNESS HISTORY OF PRESENT ILLNESS: HERE FOR POST PROCEDURE F/U.HAD BILATERAL CFBT C3/4-C4/5 ON 02/02/19.REPORTING SIGNIFICANT REDUCTION IN PAIN THAT CONTINUES TODAY.RATING PAIN VAS 2/10. PAIN THE PATIENT DESCRIBES THE PAIN... FALL RISK SCREENING: SCREENING :NO FALLS REPORTED IN THE LAST YEAR CURRENT MEDICATIONS TAKING AMLODIPINE BESYLATE 2.5 MG TABLET 1 TABLET ORALLY ONCE A DAY TAKING ASPIR-81 81 MG TABLET DELAYED RELEASE 1 TABLET ORALLY EVERY OTHER DAY TAKING CITRACAL PLUS 400MG TABLET 2 TABS ORALLY AT BEDTIME TAKING FLECAINIDE ACETATE 50 MG TABLET 1 TABLET ORALLY EVERY 12 HRS TAKING VITAMIN D3 MAXIMUM STRENGTH 5000 UNIT CAPSULE 1 CAPSULE ORALLY DAILY TAKING VITAMIN B-12 500 MCG TABLET 1 TABLET ORALLY ONCE A DAY TAKING TRULICITY 0.75 MG/0.5ML SOLUTION PEN-INJECTOR SUBCUTANEOUS WEEKLY TAKING PRILOSEC 40 MG CAPSULE DELAYED RELEASE 1 CAPSULE ORALLY ONCE A DAY TAKING POTASSIUM BICARB & CHLORIDE 20 MEQ PACKET 2 TABS ORALLY TWICE A DAY TAKING METFORMIN HCL 1000 MG TABLET 1 TABLET WITH MEALS ORALLY TWICE DAILY TAKING PROBIOTIC 1 CAPSULE 1 CAP ORALLY DAILY TAKING MAGNESIUM 400 MG CAPSULE 1 CAP ORALLY BID TAKING BISOPROLOL FUMARATE 5 MG TABLET 1 TABLET ORALLY ONCE A DAY TAKING LIPITOR 10 MG TABLET 1 TABLET ORALLY ONCE A DAY TAKING MULTI FOR HIM TABLET 2 TABS ORALLY DAILY TAKING JARDIANCE 10 MG TABLET 1 TABLET ONCE A DAY TAKING TAMSULOSIN HCL 0.4 MG CAPSULE 1 CAPSULE ONCE A DAY TAKING ZOFRAN 8 MG TABLET 1 TABLET ORALLY Q 8 HOURS NEEDED TAKING CYMBALTA 60 MG CAPSULE DELAYED RELEASE PARTICLES 1 CAPSULE ORALLY BEFORE BEDTIME TAKING TIZANIDINE HCL 2 MG TABLET 1 TABLET NEEDED ORALLY EVERY 8 HRS TAKING GABAPENTIN 300 MG CAPSULE 1 CAPSULE ORALLY BEFORE BEDTIME TAKING SOMA 350 MG TABLET 1 TABLET NEEDED ORALLY FOR SPASMS AND PAIN EVERY 12 HOURS NEEDED MDD2 TAKING PERCOCET 5-325 MG TABLET 1 TO 2 TAB ORALLY Q6H PRN MDD 4 TAKING LOSARTAN POTASSIUM 25 MG TABLET 1 TABLET ORALLY ONCE A DAY TAKING SPIRONOLACTONE 25 MG TABLET 1 TABLET ORALLY ONCE A DAY TAKING TOPIRAMATE 50 MG TABLET 1 TABLET ORALLY BEFORE BEDTIME TAKING COLCRYS 0.6 MG TABLET 1 TABLET PRN ORALLY ONCE A DAY TAKING ENTOCORT EC 3 MG CAPSULE DELAYED RELEASE PARTICLES DIRECTED ORALLY , NOTES: TAPER NOT-TAKING MELATONIN 5 MG TABLET 1 TABLET AT BEDTIME NEEDED WITH FOOD ORALLY ONCE A DAY, NOTES: NONE RECTLY NOT-TAKING ENTEREG 12 MG CAPSULE 1 CAPSULE ORALLY TAPPERING DOSE NOT-TAKING GABAPENTIN 100 MG CAPSULE 1 CAPSULE ORALLY IN AM NOT-TAKING COLCHICINE 0.6 MG CAPSULE ORALLY DIRECTED, NOTES: NONE RECENTLY MEDICATION LIST REVIEWED AND RECONCILED WITH THE PATIENT PAST MEDICAL HISTORY DIABETES MIGRAINES PAF - INTERMITTENT A-FIB HTN GERD HIGH CHOLESTEROL GUILLAIN BARRE PNEUMONIA ILIEITIS GOUT A FIB WITH RVR DIVERTICULITIS BPH ED ILEITIS BROKEN LEFT RING FINGER MULTIPLY GI PROBLEMS CHRON'S ALLERGIES N.K.D.A. SURGICAL HISTORY BOWEL RESECTION 2013 RIGHT KNEE ARTHROSCOPY 2013 GASTRIC BYPASS RIGHT INGUINAL HERNIA REPAIR 06/24/18 CHOLECYSTECTOMY 11/2018 FAMILY HISTORY FATHER: , DIAGNOSED WITH DIABETES, CANCER MOTHER: , OTHER, DIABETES, HYPERTENSION SIBLINGS: ALIVE 4 BROTHER(S) , 2 SISTER(S) . 1 SON(S) , 1 DAUGHTER(S) - HEALTHY. 1 SISTER . 1 SISTER HAS ALOT OF MEDICAL ISSUES ALSO. SOCIAL HISTORY GENERAL: TOBACCO USE ARE YOU A:NONSMOKER LATEX QUESTIONNAIRE LATEX ALLERGY : HAVE YOU EVER DEVELOPED ANY TYPE OF REACTION AFTER HANDLING LATEX PRODUCTS SUCH RUBBER GLOVES, CONDOMS, DIAPHRAGMS, BALLOONS, SOCKS, OR UNDERWEAR?NO LATEX ALLERGY : HAVE YOU EVER DEVELOPED ANY TYPE OF REACTION DURING OR AFTER DENTAL APPOINTMENT, VAGINAL/RECTAL EXAMINATION, SURGICAL PROCEDURE, OR ANY OTHER EXPOSURE?NO LATEX RISK : HAVE YOU EVER HAD ANY DIFFICULTY BREATHING OR HIVES AFTER EATING OR HANDLING ANY FRUITS, OR VEGETABLES; SUCH KIWI, BANANAS, STONE FRUITS, OR CHESTNUTSNO LATEX RISK : DO YOU HAVE A PREVIOUS PERSONAL HISTORY OF MORE THAN NINE SURGERIES, SPINA BIFIDA, OR REPEATED CATHERTIZATIONS? NO LATEX RISK : ARE YOU FREQUENTLY EXPOSED TO LATEX PRODUCTS IN YOUR OCCUPATION?YES SOMETIMES DATE ASKED : 03/01/2019 ALCOHOL SCREENING DID YOU HAVE A DRINK CONTAINING ALCOHOL IN THE PAST YEAR?YES HOW OFTEN DID YOU HAVE A DRINK CONTAINING ALCOHOL IN THE PAST YEAR?MONTHLY OR LESS (1 POINT) HOW MANY DRINKS DID YOU HAVE ON A TYPICAL DAY WHEN YOU WERE DRINKING IN THE PAST YEAR?1 OR 2 (0 POINTS) HOW OFTEN DID YOU HAVE SIX OR MORE DRINKS ON ONE OCCASION IN THE PAST YEAR?NEVER (0 POINTS) POINTS1 INTERPRETATIONNEGATIVE RECREATIONAL DRUG USE DRUG USE?NO CAFFEINE CAFFEINE USE?YES 1-2 SODA/DAY SEXUAL HX HAD SEX IN THE LAST 12 MONTHS (VAGINAL, ORAL, OR ANAL)?NO HAVE YOU EVER HAD AN STD?NO SABIANIST [id number] OTHER LANGUAGE LANGUAGES SPOKEN:CROATIAN EDUCATION LEVEL OF EDUCATION:FINISHED HIGH SCHOOL LEARNING BARRIERS / SPECIAL NEEDS CHANGE FROM LAST VISIT?NO BARRIERS TO LEARNING?NO HEARING IMPAIRED?NO VISION IMPAIRED?YES :CORRECTIVE LENSES COGNITIVELY IMPAIRED?NO READINESS TO LEARN?YES LEARNING PREFERENCES?NO LEARNING CAPABILITIES PRESENT?YES EMOTIONAL BARRIERS?NO SPECIAL DEVICES?NO FURNITURE FINISHER HELPER NEEDED?NO DOMESTIC VIOLENCE DO YOU FEEL SAFE IN YOUR ENVIRONMENT?YES 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 EXERCISE: WALKS. MARITAL STATUS: . OTHERS AT HOME: SPOUSE. PAIN CLINIC PFS, CLERGY, PUBLIC HEALTH REFERRALS PFS REFERRAL NEEDED?NO CLERGY REFERRAL NEEDED?NO PUBLIC HEALTH REFERRAL NEEDED?NO WAS THE PROVIDER NOTIFIED OF ANY PERTINENT INFO? N/A HAS THE PATIENT BEEN EDUCATED REGARDING HIS/HER PLAN OF CARE?YES HAS THE PATIENT BEEN EDUCATED REGARDING PAIN, THE RISK FOR PAIN, THE IMPORTANCE OF EFFECTIVE PAIN MANAGEMENT, AND THE PAIN ASSESSMENT PROCESS?YES ADVANCE DIRECTIVE ADVANCE DIRECTIVE DISCUSSED WITH PATIENT:YES HCP ON FILE , AUDREY [phone] 12/01/18 REVIEWED WITH PT. READ WITH PATIENT 03/01/19 1406 JS. HOSPITALIZATION/MAJOR DIAGNOSTIC PROCEDURE SURGERY RELATED GUILLAIN BARRE REQUIRING PLASMAPHERESIS, IVIG, STEROIDS AND INTUBATION [facility] 09/2015 PNEUMONIA, ILEITIS 02/2018 REVIEW OF SYSTEMS REVIEWED BY: PROVIDER: BRITT RESENDIZ . CONSTITUTIONAL: ANY CHANGE IN YOUR MEDICAL CONDITION? NO . CHILLS NO . FEVER NO . INFECTION: DO YOU HAVE NEW INFECTIONS? NO . DO YOU HAVE HISTORY OF MRSA? NO . MUSCULOSKELETAL: ANY NEW PATTERNS OF PAIN OR NUMBNESS? NO . GASTROENTEROLOGY: ANY NEW CHANGE IN BOWEL CONTROL? NO . GENITOURINARY: ANY NEW CHANGE IN BLADDER CONTROL? NO . IS THERE A CHANCE YOU COULD BE ? NO . HEMATOLOGY/LYMPH: DO YOU TAKE ANY BLOOD THINNERS? (FOR EXAMPLE- COUMADIN, PLAVIX, AGGRENOX, PLATEL, PRADAXA, OR XARELTO) NO . WHEN WAS YOUR LAST DOSE? DATE: TIME: . NEUROLOGY: HAVE YOU FALLEN IN THE PAST 12 MONTHS? NO . ANY NEW EXTREMITY NUMBNESS OR WEAKNESS? NO . CARDIOLOGY: DO YOU HAVE A PACEMAKER OR DEFIBRILLATOR? NO . RESPIRATORY: HAVE YOU BEEN SICK IN THE PAST WEEK? NO . FEVER NO . FLU LIKE SYMPTOMS? NO . COUGH NO . INTEGUMENTARY: DO YOU HAVE ANY RASHES OR OPEN SORES? NO . ALLERGIC/IMMUNO: ARE YOU ALLERGIC TO IV DYE? NO . ANY NEW ALLERGIES? NO . PSYCHIATRIC: DO YOU HAVE THOUGHTS OF HURTING YOURSELF OR SOMEONE ELSE? NO . ARE YOU ABUSED, NEGLECTED, OR IN AN UNSAFE ENVIRONMENT? NO . ENDOCRINOLOGY: ARE YOU DIABETIC? YES . OTHER: DO YOU NEED ANY PRESCRIPTIONS? NO . IF YES, PLEASE LIST: ____ . ANY NEW PROBLEMS WITH YOUR MEDICATIONS? NO . WHEN DID YOU LAST EAT? ____ . WHEN DID YOU LAST DRINK? ____ . WHAT DID YOU LAST DRINK? ____ . NAME OF PERSON DRIVING YOU HOME? ____ . DO YOU HAVE ANY OTHER QUESTIONS OR CONCERNS NO . VITAL SIGNS WT 173 LBS,4 LBS, HT 70 IN, BMI 248.78 INDEX, BP 129/71 MM HG, HR 85 /MIN, RR 18 /MIN, TEMP 98.9 F, OXYGEN SAT % 99%, SAFE IN ENV? (Y/N) YES, NA INITIALS AW 1350, REVIEWED BY: BRANNON. EXAMINATION GENERAL EXAMINATION: GENERAL APPEARANCE:AWAKE,ALERT ,PLEAASANT . PSYCHAFFECT NORMAL . LUNGS:LUNG VALLADARES ARE CLEAR TO AUSCULTATION BILATERALLY. GOOD MOVEMENT OF AIR . HEART:S1, S2 IN A REGULAR RATE AND RHYTHM. NO SIGNIFICANT MURMURS, RUBS OR GALLOPS NOTED . ASSESSMENTS CERVICAL DISC DISORDER WITH RADICULOPATHY OF CERVICAL REGION - M50.10 (PRIMARY) TREATMENT CERVICAL DISC DISORDER WITH RADICULOPATHY OF CERVICAL REGION CONTINUE TIZANIDINE HCL TABLET, 2 MG, 1 TABLET NEEDED, ORALLY, EVERY 8 HRS CONTINUE GABAPENTIN CAPSULE, 300 MG, 1 CAPSULE, ORALLY, BEFORE BEDTIME CONTINUE SOMA TABLET, 350 MG, 1 TABLET NEEDED, ORALLY FOR SPASMS AND PAIN, EVERY 12 HOURS NEEDED MDD2 CONTINUE PERCOCET TABLET, 5-325 MG, 1 TO 2 TAB, ORALLY, Q6H PRN MDD 4 NOTES: ISTOP REGISTRY REVIEWED AND DEMONSTRATES COMPLLIANCE. BRINGS IN MEDICATIONS WHICH IS APPROPRIATE FOR WHAT WAS DISPENSED. RECENT URINE TOXICOLOGY REVIEWED. NO UNAUTHORIZED MEDICATIONS. NO ILLICIT SUBSTANCES AND PRESCRIBED MEDICATIONS WERE PRESENT. , RISKS AND BENEFITS OF NARCOTIC/OPIOD MEDICATIONS WERE REVIEWED WITH PATIENT - THIS INCLUDES BUT IS NOT LIMITED TO RISK OF DEPENDANCE/DEVELOPMENT OF ADDICTION, MOOD DISTURBANCE AND DEPRESSION, OSTEOPOROSIS, HORMONAL AND LABIDAL CHANGES, RESPIRATORY DEPRESSION AND . PATIENT IS ADVISED NOT TO DRIVE OR DRINK ALCOHOL WHILE ON THESE MEDICATIONS. PROCEDURE CODES FA211 ESTABILISHED PATIENT [facility] CHARGE DISPOSITION & COMMUNICATION FOLLOW UP 2 MONTHS ELECTRONICALLY SIGNED BY MARTÍN GOLDBERG ON 03/15/2019 AT 05:04 PM EDT DISCLAIMER : THIS IS A VISIT SUMMARY EXTRACTED FROM THE [employer] CHART. IT IS NOT A COPY OF THE [employer] PROGRESS NOTE. TERESA
== END ==
LOC: M PAIN 13:30
PROVIDERS: ATTEND Nurse Practitioner Family
DX: M50.10 Cervical disc disorder with radiculopathy, unspecified cervical region (principal); E11.9 Type 2 diabetes mellitus without complications; G43.909 Migraine, unspecified, not intractable, without status migrainosus; I48.91 Unspecified atrial fibrillation; I10 Essential (primary) hypertension; K21.9 Gastro-esophageal reflux disease without esophagitis; E78.00 Pure hypercholesterolemia, unspecified; Z87.19 Personal history of other diseases of the digestive system; Z98.84 Bariatric surgery status; Z79.82 Long term (current) use of aspirin; Z79.84 Long term (current) use of oral hypoglycemic drugs; Z79.891 Long term (current) use of opiate analgesic; Z79.899 Other long term (current) drug therapy

== ENCOUNTER → 2019-04-29 | Outpatient (CLI) | payer BC ==
--- NOTE | 2019-05-18 02:16 | ECWPNPC ---
PATIENT NAME: HAI DAIGLE : 1965 GENDER: MALE VISIT DATE: 04/29/2019 DISCHARGE DATE: 04/29/19 1005 VISIT LOCKED DATE TIME: PHYSICIAN: BRITT LANCASTER RESOURCE: BRITT LANCASTER REASON FOR APPOINTMENT 1. 2 MONTHS HISTORY OF PRESENT ILLNESS GENERAL: HERE FOR F/U OF CHRONIC NECK PAIN.PAIN HAS ESCALATED OVER THE PAST MONTH.PAIN IS IN NECK AND RADIATES INTO UPPER BACK.HAS BEEN EXPERIENCING A FLARE UP OF CHROHNS LATELY AND IS ON PREDNISONE THERAPY.FINDS CURRENT MEDICATION IS HELPFUL AT REDUCING PAIN AND KEEPING HIM FUNCTIONAL. HISTORY OF PRESENT ILLNESS: PAIN THE PATIENT DESCRIBES THE PAIN... FALL RISK SCREENING: SCREENING :NO FALLS REPORTED IN THE LAST YEAR CURRENT MEDICATIONS TAKING AMLODIPINE BESYLATE 2.5 MG TABLET 1 TABLET ORALLY ONCE A DAY TAKING ASPIR-81 81 MG TABLET DELAYED RELEASE 1 TABLET ORALLY EVERY OTHER DAY TAKING CITRACAL PLUS 400MG TABLET 2 TABS ORALLY AT BEDTIME TAKING FLECAINIDE ACETATE 50 MG TABLET 1 TABLET ORALLY EVERY 12 HRS TAKING VITAMIN D3 MAXIMUM STRENGTH 5000 UNIT CAPSULE 1 CAPSULE ORALLY DAILY TAKING VITAMIN B-12 500 MCG TABLET 1 TABLET ORALLY ONCE A DAY TAKING TRULICITY 0.75 MG/0.5ML SOLUTION PEN-INJECTOR SUBCUTANEOUS WEEKLY TAKING PRILOSEC 40 MG CAPSULE DELAYED RELEASE 1 CAPSULE ORALLY ONCE A DAY TAKING POTASSIUM BICARB & CHLORIDE 20 MEQ PACKET 2 TABS ORALLY TWICE A DAY TAKING METFORMIN HCL 1000 MG TABLET 1 TABLET WITH MEALS ORALLY TWICE DAILY TAKING PROBIOTIC 1 CAPSULE 1 CAP ORALLY DAILY TAKING MAGNESIUM 400 MG CAPSULE 1 CAP ORALLY BID TAKING BISOPROLOL FUMARATE 5 MG TABLET 1 TABLET ORALLY ONCE A DAY TAKING LIPITOR 10 MG TABLET 1 TABLET ORALLY ONCE A DAY TAKING MULTI FOR HIM TABLET 2 TABS ORALLY DAILY TAKING JARDIANCE 10 MG TABLET 1 TABLET ONCE A DAY TAKING TAMSULOSIN HCL 0.4 MG CAPSULE 1 CAPSULE ONCE A DAY TAKING ZOFRAN 8 MG TABLET 1 TABLET ORALLY Q 8 HOURS NEEDED TAKING CYMBALTA 60 MG CAPSULE DELAYED RELEASE PARTICLES 1 CAPSULE ORALLY BEFORE BEDTIME TAKING LOSARTAN POTASSIUM 25 MG TABLET 1 TABLET ORALLY ONCE A DAY TAKING SPIRONOLACTONE 25 MG TABLET 1 TABLET ORALLY ONCE A DAY TAKING TOPIRAMATE 50 MG TABLET 1 TABLET ORALLY BEFORE BEDTIME TAKING COLCRYS 0.6 MG TABLET 1 TABLET PRN ORALLY ONCE A DAY TAKING ENTOCORT EC 3 MG CAPSULE DELAYED RELEASE PARTICLES DIRECTED ORALLY , NOTES: TAPER TAKING TIZANIDINE HCL 2 MG TABLET 1 TABLET NEEDED ORALLY EVERY 8 HRS TAKING GABAPENTIN 300 MG CAPSULE 1 CAPSULE ORALLY BEFORE BEDTIME TAKING SOMA 350 MG TABLET 1 TABLET NEEDED ORALLY FOR SPASMS AND PAIN EVERY 12 HOURS NEEDED MDD2 TAKING PERCOCET 5-325 MG TABLET 1 TO 2 TAB ORALLY Q6H PRN MDD 4 TAKING BUDESONIDE 3 MG CAPSULE DELAYED RELEASE PARTICLES DIRECTED ORALLY UNKNOWN MELATONIN 5 MG TABLET 1 TABLET AT BEDTIME NEEDED WITH FOOD ORALLY ONCE A DAY, NOTES: NONE RECTLY UNKNOWN ENTEREG 12 MG CAPSULE 1 CAPSULE ORALLY TAPPERING DOSE UNKNOWN GABAPENTIN 100 MG CAPSULE 1 CAPSULE ORALLY IN AM UNKNOWN COLCHICINE 0.6 MG CAPSULE ORALLY DIRECTED, NOTES: NONE RECENTLY MEDICATION LIST REVIEWED AND RECONCILED WITH THE PATIENT PAST MEDICAL HISTORY DIABETES MIGRAINES PAF - INTERMITTENT A-FIB HTN GERD HIGH CHOLESTEROL GUILLAIN BARRE PNEUMONIA ILIEITIS GOUT A FIB WITH RVR DIVERTICULITIS BPH ED ILEITIS BROKEN LEFT RING FINGER MULTIPLY GI PROBLEMS CHRON'S ALLERGIES N.K.D.A. SURGICAL HISTORY BOWEL RESECTION 2013 RIGHT KNEE ARTHROSCOPY 2013 GASTRIC BYPASS RIGHT INGUINAL HERNIA REPAIR 06/24/18 CHOLECYSTECTOMY 11/2018 FAMILY HISTORY FATHER: , DIAGNOSED WITH CANCER, DIABETES MOTHER: , DIABETES, HYPERTENSION, OTHER SIBLINGS: ALIVE 4 BROTHER(S) , 2 SISTER(S) . 1 SON(S) , 1 DAUGHTER(S) - HEALTHY. 1 SISTER . 1 SISTER HAS ALOT OF MEDICAL ISSUES ALSO. SOCIAL HISTORY GENERAL: TOBACCO USE ARE YOU A:NONSMOKER OTHERS AT HOME: SPOUSE. EDUCATION LEVEL OF EDUCATION:FINISHED HIGH SCHOOL DIET: REGULAR. LANGUAGE LANGUAGES SPOKEN:PORTUGUESE DOMESTIC VIOLENCE DO YOU FEEL SAFE IN YOUR ENVIRONMENT?YES RECREATIONAL DRUG USE DRUG USE?NO EXERCISE: WALKS. LEARNING BARRIERS / SPECIAL NEEDS CHANGE FROM LAST VISIT?NO BARRIERS TO LEARNING?NO HEARING IMPAIRED?NO VISION IMPAIRED?YES :CORRECTIVE LENSES COGNITIVELY IMPAIRED?NO READINESS TO LEARN?YES LEARNING PREFERENCES?NO LEARNING CAPABILITIES PRESENT?YES EMOTIONAL BARRIERS?NO SPECIAL DEVICES?NO CLOTHES DRIER REPAIRER NEEDED?NO PAIN CLINIC PFS, CLERGY, PUBLIC HEALTH REFERRALS PFS REFERRAL NEEDED?NO CLERGY REFERRAL NEEDED?NO PUBLIC HEALTH REFERRAL NEEDED?NO WAS THE PROVIDER NOTIFIED OF ANY PERTINENT INFO? N/A HAS THE PATIENT BEEN EDUCATED REGARDING HIS/HER PLAN OF CARE?YES HAS THE PATIENT BEEN EDUCATED REGARDING PAIN, THE RISK FOR PAIN, THE IMPORTANCE OF EFFECTIVE PAIN MANAGEMENT, AND THE PAIN ASSESSMENT PROCESS?YES LATEX QUESTIONNAIRE LATEX ALLERGY : HAVE YOU EVER DEVELOPED ANY TYPE OF REACTION AFTER HANDLING LATEX PRODUCTS SUCH RUBBER GLOVES, CONDOMS, DIAPHRAGMS, BALLOONS, SOCKS, OR UNDERWEAR?NO LATEX ALLERGY : HAVE YOU EVER DEVELOPED ANY TYPE OF REACTION DURING OR AFTER DENTAL APPOINTMENT, VAGINAL/RECTAL EXAMINATION, SURGICAL PROCEDURE, OR ANY OTHER EXPOSURE?NO LATEX RISK : HAVE YOU EVER HAD ANY DIFFICULTY BREATHING OR HIVES AFTER EATING OR HANDLING ANY FRUITS, OR VEGETABLES; SUCH KIWI, BANANAS, STONE FRUITS, OR CHESTNUTSNO LATEX RISK : DO YOU HAVE A PREVIOUS PERSONAL HISTORY OF MORE THAN NINE SURGERIES, SPINA BIFIDA, OR REPEATED CATHERTIZATIONS? NO LATEX RISK : ARE YOU FREQUENTLY EXPOSED TO LATEX PRODUCTS IN YOUR OCCUPATION?YES SOMETIMES DATE ASKED : 03/01/2019 CAFFEINE CAFFEINE USE?YES 1-2 SODA/DAY ADVANCE DIRECTIVE ADVANCE DIRECTIVE DISCUSSED WITH PATIENT:YES HCP ON FILE AUDREY [phone] MANDAEN [id number] OTHER MARITAL STATUS: . 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 SEXUAL HX HAD SEX IN THE LAST 12 MONTHS (VAGINAL, ORAL, OR ANAL)?NO HAVE YOU EVER HAD AN STD?NO 12/01/18 REVIEWED WITH PT. READ WITH PATIENT 03/01/19 3056 JS. HOSPITALIZATION/MAJOR DIAGNOSTIC PROCEDURE SURGERY RELATED GUILLAIN BARRE REQUIRING PLASMAPHERESIS, IVIG, STEROIDS AND INTUBATION [facility] 09/2015 PNEUMONIA, ILEITIS 02/2018 REVIEW OF SYSTEMS REVIEWED BY: PROVIDER: BRITT RESENDIZ . CONSTITUTIONAL: ANY CHANGE IN YOUR MEDICAL CONDITION? NO . CHILLS NO . FEVER NO . INFECTION: DO YOU HAVE NEW INFECTIONS? NO . DO YOU HAVE HISTORY OF MRSA? NO . MUSCULOSKELETAL: ANY NEW PATTERNS OF PAIN OR NUMBNESS? NO . GASTROENTEROLOGY: ANY NEW CHANGE IN BOWEL CONTROL? NO . GENITOURINARY: ANY NEW CHANGE IN BLADDER CONTROL? NO . IS THERE A CHANCE YOU COULD BE ? NO . HEMATOLOGY/LYMPH: DO YOU TAKE ANY BLOOD THINNERS? (FOR EXAMPLE- COUMADIN, PLAVIX, AGGRENOX, PLATEL, PRADAXA, OR XARELTO) NO . WHEN WAS YOUR LAST DOSE? DATE: TIME: . NEUROLOGY: HAVE YOU FALLEN IN THE PAST 12 MONTHS? NO . ANY NEW EXTREMITY NUMBNESS OR WEAKNESS? NO . CARDIOLOGY: DO YOU HAVE A PACEMAKER OR DEFIBRILLATOR? NO . RESPIRATORY: HAVE YOU BEEN SICK IN THE PAST WEEK? NO . FEVER NO . FLU LIKE SYMPTOMS? NO . COUGH NO . INTEGUMENTARY: DO YOU HAVE ANY RASHES OR OPEN SORES? NO . ALLERGIC/IMMUNO: ARE YOU ALLERGIC TO IV DYE? NO . ANY NEW ALLERGIES? NO . PSYCHIATRIC: DO YOU HAVE THOUGHTS OF HURTING YOURSELF OR SOMEONE ELSE? NO . ARE YOU ABUSED, NEGLECTED, OR IN AN UNSAFE ENVIRONMENT? NO . ENDOCRINOLOGY: ARE YOU DIABETIC? NO . OTHER: DO YOU NEED ANY PRESCRIPTIONS? NO . IF YES, PLEASE LIST: ____ . ANY NEW PROBLEMS WITH YOUR MEDICATIONS? NO . WHEN DID YOU LAST EAT? ____ . WHEN DID YOU LAST DRINK? ____ . WHAT DID YOU LAST DRINK? ____ . NAME OF PERSON DRIVING YOU HOME? ____ . DO YOU HAVE ANY OTHER QUESTIONS OR CONCERNS NO . VITAL SIGNS WT 175 LBS, HT 70 IN, BMI 25.11 INDEX, BP 148/85 MM HG, HR 84 /MIN, RR 18 /MIN, TEMP 96.8 F, OXYGEN SAT % 98%, NA INITIALS SC 09:01, REVIEWED BY: KG. EXAMINATION GENERAL EXAMINATION: LUNGS:LUNG SOUNDS ARE CLEAR . HEART:HEART RATE REGULAR . MUSCULOSKELETAL:*, MUSCLE STRENGTH TESTING 5/5 BILATERAL UPPER EXTREMITIES. . CERVICAL+ FOR PAIN WITH PALPATION OF CERVICAL SPINE. + FOR PAIN WITH PALPATION OF CERVICAL PARASPINALS.SPECIFIC POINT TENDERNESS NOTED OV C4/5-/C5/6 CERVICAL FACETS WITH EXTENSION AND FACET LOADING. . DIAGNOSTIC TESTS REVIEWEDCERVICAL MRI -10/24/15. ASSESSMENTS CERVICAL SPONDYLOSIS WITH RADICULOPATHY - M47.22 (PRIMARY) TREATMENT CERVICAL SPONDYLOSIS WITH RADICULOPATHY CONTINUE PERCOCET TABLET, 5-325 MG, 1 TO 2 TAB, ORALLY, Q6H PRN MDD 4 CONTINUE CYMBALTA CAPSULE DELAYED RELEASE PARTICLES, 60 MG, 1 CAPSULE, ORALLY, BEFORE BEDTIME CONTINUE TIZANIDINE HCL TABLET, 2 MG, 1 TABLET NEEDED, ORALLY, EVERY 8 HRS CONTINUE GABAPENTIN CAPSULE, 300 MG, 1 CAPSULE, ORALLY, BEFORE BEDTIME CONTINUE SOMA TABLET, 350 MG, 1 TABLET NEEDED, ORALLY FOR SPASMS AND PAIN, EVERY 12 HOURS NEEDED MDD2 NOTES: BILAT C3/4-C4/5 THERAPEUTIC FACET BLOCK, ISTOP REGISTRY REVIEWED AND DEMONSTRATES COMPLLIANCE. (REF # ) BRINGS IN MEDICATIONS WHICH IS APPROPRIATE FOR WHAT WAS DISPENSED. RECENT URINE TOXICOLOGY REVIEWED. NO UNAUTHORIZED MEDICATIONS. NO ILLICIT SUBSTANCES AND PRESCRIBED MEDICATIONS WERE PRESENT. , RISKS AND BENEFITS OF NARCOTIC/OPIOD MEDICATIONS WERE REVIEWED WITH PATIENT - THIS INCLUDES BUT IS NOT LIMITED TO RISK OF DEPENDANCE/DEVELOPMENT OF ADDICTION, MOOD DISTURBANCE AND DEPRESSION, OSTEOPOROSIS, HORMONAL AND LABIDAL CHANGES, RESPIRATORY DEPRESSION AND . PATIENT IS ADVISED NOT TO DRIVE OR DRINK ALCOHOL WHILE ON THESE MEDICATIONS. PROCEDURE CODES FA211 ESTABILISHED PATIENT [facility] CHARGE DISPOSITION & COMMUNICATION FOLLOW UP POST (REASON: BILAT C3/4-C4/5 THERAPEUTIC FACET BLOCK) ELECTRONICALLY SIGNED BY MARTÍN GOLDBERG ON 05/17/2019 AT 09:14 AM EDT DISCLAIMER : THIS IS A VISIT SUMMARY EXTRACTED FROM THE [employer] CHART. IT IS NOT A COPY OF THE [employer] PROGRESS NOTE. TERESA
== END ==
LOC: M PAIN 09:00
PROVIDERS: ATTEND Nurse Practitioner Family
DX: M47.22 Other spondylosis with radiculopathy, cervical region (principal); E11.9 Type 2 diabetes mellitus without complications; G43.909 Migraine, unspecified, not intractable, without status migrainosus; I48.0 Paroxysmal atrial fibrillation; I10 Essential (primary) hypertension; K21.9 Gastro-esophageal reflux disease without esophagitis; E78.00 Pure hypercholesterolemia, unspecified; M10.9 Gout, unspecified; K50.90 Crohn's disease, unspecified, without complications; G61.0 Guillain-Barre syndrome; N40.0 Benign prostatic hyperplasia without lower urinary tract symptoms; N52.9 Male erectile dysfunction, unspecified; Z98.84 Bariatric surgery status; Z90.49 Acquired absence of other specified parts of digestive tract; Z79.82 Long term (current) use of aspirin; Z79.84 Long term (current) use of oral hypoglycemic drugs; Z79.891 Long term (current) use of opiate analgesic; Z79.899 Other long term (current) drug therapy

== ENCOUNTER → 2019-05-26 | Outpatient (CLI) | payer BC ==
[~2019-05-26] MED LIST changes: +CYAN500T8 PO; +ISOVUE-M 200 41% 20ML VIAL (Q9966) As Ordered ONE; +LIDOCAINE 1% SDV INJ 30 ML VIAL As Ordered ONE; -MELA5TAB17 PO; +MELA5TAB31 PO; -VITA500T3 PO; +diazePAM 5 MG TAB As Ordered ONE; +methylPREDNISolone SUSP 40 MG/ML (DEPO-medrol) VIAL (J1030) As Ordered ONE; +oxyCODONE 5MG TAB As Ordered ONE
--- NOTE | 2019-05-26 12:37 | REP ---
Partial cervical spine series: Two views. History: Injection procedure for pain. 8 seconds of fluoroscopy time is reported. Findings: A sequence of two last image hold fluoroscopically obtained spot radiographs of the cervicothoracic junction documents needle position and contrast injection associated with cervical facet injection procedure. Electronically Signed by Nick Stanley MD 05/26/2019 04:22 P
--- NOTE | 2019-05-29 00:12 | ECWPNPC ---
PATIENT NAME: HAI DAIGLE : 1965 GENDER: MALE VISIT DATE: 05/26/2019 DISCHARGE DATE: 05/26/19 1059 VISIT LOCKED DATE TIME: PHYSICIAN: BONY ANTOINE MD RESOURCE: BONY ANTOINE MD REASON FOR APPOINTMENT 1. KILO HISTORY OF PRESENT ILLNESS HISTORY OF PRESENT ILLNESS: PAIN THE PATIENT DESCRIBES THE PAIN... 53 YEAR OLD MALE PATIENT WITH A HISTORY OF CHRONIC NECK PAIN. THE PATIENT DESCRIBES THE PAIN BURNING, SORE, SHARP, AND CONTINUOUS WITH A PAIN SCORE OF 5-8/10 DEPENDING ON PHYSICAL ACTIVITY. THE PATIENT SAYS THAT THE PAIN STARTS IN HIS NECK AREA AND RADIATES DOWN HIS LEFT ARM. THE PATIENT SAYS HE HAS DIFFICULTY MOVING HIS LEFT ARM AND HAS SOME NUMBNESS. PATIENT DENIES UNEXPLAINABLE WEIGHT LOSS, FEVER, CHILLS, NEW CHANGES ON HIS URINARY OR BOWEL CONTROL. FALL RISK SCREENING: SCREENING :NO FALLS REPORTED IN THE LAST YEAR CURRENT MEDICATIONS TAKING AMLODIPINE BESYLATE 2.5 MG TABLET 1 TABLET ORALLY ONCE A DAY, NOTES: 05/25/19@0800 TAKING ASPIR-81 81 MG TABLET DELAYED RELEASE 1 TABLET ORALLY EVERY OTHER DAY, NOTES: 05/25/19@799 TAKING CITRACAL PLUS 400MG TABLET 2 TABS ORALLY AT BEDTIME, NOTES: 05/25/19 TAKING FLECAINIDE ACETATE 50 MG TABLET 1 TABLET ORALLY EVERY 12 HRS, NOTES: 05/25/19 TAKING VITAMIN D3 MAXIMUM STRENGTH 5000 UNIT CAPSULE 1 CAPSULE ORALLY DAILY, NOTES: 05/25/19@799 TAKING VITAMIN B-12 500 MCG TABLET 1 TABLET ORALLY ONCE A DAY, NOTES: 05/25/19@08 TAKING TRULICITY 0.75 MG/0.5ML SOLUTION PEN-INJECTOR SUBCUTANEOUS WEEKLY, NOTES: 05/22/19 TAKING PRILOSEC 40 MG CAPSULE DELAYED RELEASE 1 CAPSULE ORALLY ONCE A DAY, NOTES: 05/25/19 TAKING POTASSIUM BICARB & CHLORIDE 20 MEQ PACKET 2 TABS ORALLY TWICE A DAY, NOTES: 05/25/19@2299 TAKING METFORMIN HCL 1000 MG TABLET 1 TABLET WITH MEALS ORALLY TWICE DAILY, NOTES: 05/25/19@2299 TAKING PROBIOTIC 1 CAPSULE 1 CAP ORALLY DAILY, NOTES: 05/25/19@08 TAKING MAGNESIUM 400 MG CAPSULE 1 CAP ORALLY BID, NOTES: 05/25/19 TAKING BISOPROLOL FUMARATE 5 MG TABLET 1 TABLET ORALLY ONCE A DAY, NOTES: 05/25/19 TAKING LIPITOR 10 MG TABLET 1 TABLET ORALLY ONCE A DAY, NOTES: 05/25/19 TAKING MULTI FOR HIM TABLET 2 TABS ORALLY DAILY, NOTES: 05/25/19 TAKING JARDIANCE 10 MG TABLET 1 TABLET ONCE A DAY, NOTES: 05/25/19 TAKING TAMSULOSIN HCL 0.4 MG CAPSULE 1 CAPSULE ONCE A DAY, NOTES: 05/25/19 TAKING ZOFRAN 8 MG TABLET 1 TABLET ORALLY Q 8 HOURS NEEDED, NOTES: 1 WEEK AGO TAKING LOSARTAN POTASSIUM 25 MG TABLET 1 TABLET ORALLY ONCE A DAY, NOTES: 05/25/19 TAKING SPIRONOLACTONE 25 MG TABLET 1 TABLET ORALLY ONCE A DAY, NOTES: 05/25/19 TAKING TOPIRAMATE 50 MG TABLET 1 TABLET ORALLY BEFORE BEDTIME, NOTES: 05/25/19 TAKING COLCRYS 0.6 MG TABLET 1 TABLET PRN ORALLY ONCE A DAY, NOTES: NONE RECENTLY TAKING ENTOCORT EC 3 MG CAPSULE DELAYED RELEASE PARTICLES DIRECTED ORALLY , NOTES: 2 WEEKS TAKING PERCOCET 5-325 MG TABLET 1 TO 2 TAB ORALLY Q6H PRN MDD 4, NOTES: 05/25/19 TAKING CYMBALTA 60 MG CAPSULE DELAYED RELEASE PARTICLES 1 CAPSULE ORALLY BEFORE BEDTIME, NOTES: 05/25/19 TAKING TIZANIDINE HCL 2 MG TABLET 1 TABLET NEEDED ORALLY EVERY 8 HRS, NOTES: 05/25/19 TAKING GABAPENTIN 300 MG CAPSULE 1 CAPSULE ORALLY BEFORE BEDTIME, NOTES: 05/25/19 TAKING SOMA 350 MG TABLET 1 TABLET NEEDED ORALLY FOR SPASMS AND PAIN EVERY 12 HOURS NEEDED MDD2, NOTES: 2 DAYS AGO DISCONTINUED BUDESONIDE 3 MG CAPSULE DELAYED RELEASE PARTICLES DIRECTED ORALLY DISCONTINUED ENTEREG 12 MG CAPSULE 1 CAPSULE ORALLY TAPPERING DOSE DISCONTINUED GABAPENTIN 100 MG CAPSULE 1 CAPSULE ORALLY IN AM DISCONTINUED COLCHICINE 0.6 MG CAPSULE ORALLY DIRECTED, NOTES: NONE RECENTLY UNKNOWN MELATONIN 5 MG TABLET 1 TABLET AT BEDTIME NEEDED WITH FOOD ORALLY ONCE A DAY, NOTES: NONE RECTLY MEDICATION LIST REVIEWED AND RECONCILED WITH THE PATIENT PAST MEDICAL HISTORY DIABETES MIGRAINES PAF - INTERMITTENT A-FIB HTN GERD HIGH CHOLESTEROL GUILLAIN BARRE PNEUMONIA ILIEITIS GOUT A FIB WITH RVR DIVERTICULITIS BPH ED ILEITIS BROKEN LEFT RING FINGER MULTIPLY GI PROBLEMS CHRON'S ALLERGIES N.K.D.A. SURGICAL HISTORY BOWEL RESECTION 2013 RIGHT KNEE ARTHROSCOPY 2013 GASTRIC BYPASS RIGHT INGUINAL HERNIA REPAIR 06/24/18 CHOLECYSTECTOMY 11/2018 FAMILY HISTORY FATHER: , DIAGNOSED WITH DIABETES, CANCER MOTHER: , OTHER, DIABETES, HYPERTENSION SIBLINGS: ALIVE 4 BROTHER(S) , 2 SISTER(S) . 1 SON(S) , 1 DAUGHTER(S) - HEALTHY. 1 SISTER . 1 SISTER HAS ALOT OF MEDICAL ISSUES ALSO. SOCIAL HISTORY GENERAL: TOBACCO USE ARE YOU A:NONSMOKER OTHERS AT HOME: SPOUSE. EDUCATION LEVEL OF EDUCATION:FINISHED HIGH SCHOOL DIET: REGULAR. LANGUAGE LANGUAGES SPOKEN:MARTINIQUAIS DOMESTIC VIOLENCE DO YOU FEEL SAFE IN YOUR ENVIRONMENT?YES RECREATIONAL DRUG USE DRUG USE?NO EXERCISE: WALKS. LEARNING BARRIERS / SPECIAL NEEDS CHANGE FROM LAST VISIT?NO BARRIERS TO LEARNING?NO HEARING IMPAIRED?NO VISION IMPAIRED?YES :CORRECTIVE LENSES COGNITIVELY IMPAIRED?NO READINESS TO LEARN?YES LEARNING PREFERENCES?NO LEARNING CAPABILITIES PRESENT?YES EMOTIONAL BARRIERS?NO SPECIAL DEVICES?NO MONEY MARKET DEALER NEEDED?NO PAIN CLINIC PFS, CLERGY, PUBLIC HEALTH REFERRALS PFS REFERRAL NEEDED?NO CLERGY REFERRAL NEEDED?NO PUBLIC HEALTH REFERRAL NEEDED?NO WAS THE PROVIDER NOTIFIED OF ANY PERTINENT INFO? N/A HAS THE PATIENT BEEN EDUCATED REGARDING HIS/HER PLAN OF CARE?YES HAS THE PATIENT BEEN EDUCATED REGARDING PAIN, THE RISK FOR PAIN, THE IMPORTANCE OF EFFECTIVE PAIN MANAGEMENT, AND THE PAIN ASSESSMENT PROCESS?YES LATEX QUESTIONNAIRE LATEX ALLERGY : HAVE YOU EVER DEVELOPED ANY TYPE OF REACTION AFTER HANDLING LATEX PRODUCTS SUCH RUBBER GLOVES, CONDOMS, DIAPHRAGMS, BALLOONS, SOCKS, OR UNDERWEAR?NO LATEX ALLERGY : HAVE YOU EVER DEVELOPED ANY TYPE OF REACTION DURING OR AFTER DENTAL APPOINTMENT, VAGINAL/RECTAL EXAMINATION, SURGICAL PROCEDURE, OR ANY OTHER EXPOSURE?NO LATEX RISK : HAVE YOU EVER HAD ANY DIFFICULTY BREATHING OR HIVES AFTER EATING OR HANDLING ANY FRUITS, OR VEGETABLES; SUCH KIWI, BANANAS, STONE FRUITS, OR CHESTNUTSNO LATEX RISK : DO YOU HAVE A PREVIOUS PERSONAL HISTORY OF MORE THAN NINE SURGERIES, SPINA BIFIDA, OR REPEATED CATHERIZATIONS? NO LATEX RISK : ARE YOU FREQUENTLY EXPOSED TO LATEX PRODUCTS IN YOUR OCCUPATION?NO DATE ASKED : 05/26/2019 CAFFEINE CAFFEINE USE?YES 1-2 SODA/DAY ADVANCE DIRECTIVE ADVANCE DIRECTIVE DISCUSSED WITH PATIENT:YES HCP ON FILE , AUDREY [phone] QUAKER [id number] OTHER MARITAL STATUS: . 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 SEXUAL HX HAD SEX IN THE LAST 12 MONTHS (VAGINAL, ORAL, OR ANAL)?NO HAVE YOU EVER HAD AN STD?NO 12/01/18 REVIEWED WITH PTSarah READ WITH PATIENT 03/01/19 1406 JS. HOSPITALIZATION/MAJOR DIAGNOSTIC PROCEDURE SURGERY RELATED GUILLAIN BARRE REQUIRING PLASMAPHERESIS, IVIG, STEROIDS AND INTUBATION [facility] 09/2015 PNEUMONIA, ILEITIS 02/2018 REVIEW OF SYSTEMS REVIEWED BY: PROVIDER: BONY ANTOINE MD . CONSTITUTIONAL: ANY CHANGE IN YOUR MEDICAL CONDITION? NO . CHILLS NO . FEVER NO . INFECTION: DO YOU HAVE NEW INFECTIONS? NO . DO YOU HAVE HISTORY OF MRSA? NO . MUSCULOSKELETAL: ANY NEW PATTERNS OF PAIN OR NUMBNESS? YES, INCREASED . GASTROENTEROLOGY: ANY NEW CHANGE IN BOWEL CONTROL? NO . GENITOURINARY: ANY NEW CHANGE IN BLADDER CONTROL? NO . IS THERE A CHANCE YOU COULD BE ? NO . HEMATOLOGY/LYMPH: DO YOU TAKE ANY BLOOD THINNERS? (FOR EXAMPLE- COUMADIN, PLAVIX, AGGRENOX, PLATEL, PRADAXA, OR XARELTO) NO . WHEN WAS YOUR LAST DOSE? DATE: TIME: . NEUROLOGY: HAVE YOU FALLEN IN THE PAST 12 MONTHS? NO . ANY NEW EXTREMITY NUMBNESS OR WEAKNESS? NO . CARDIOLOGY: DO YOU HAVE A PACEMAKER OR DEFIBRILLATOR? NO . RESPIRATORY: HAVE YOU BEEN SICK IN THE PAST WEEK? NO . FEVER NO . FLU LIKE SYMPTOMS? NO . COUGH NO . INTEGUMENTARY: DO YOU HAVE ANY RASHES OR OPEN SORES? NO . ALLERGIC/IMMUNO: ARE YOU ALLERGIC TO IV DYE? NO . ANY NEW ALLERGIES? NO . PSYCHIATRIC: DO YOU HAVE THOUGHTS OF HURTING YOURSELF OR SOMEONE ELSE? NO . ARE YOU ABUSED, NEGLECTED, OR IN AN UNSAFE ENVIRONMENT? NO . ENDOCRINOLOGY: ARE YOU DIABETIC? YES . OTHER: DO YOU NEED ANY PRESCRIPTIONS? NO . IF YES, PLEASE LIST: ____ . ANY NEW PROBLEMS WITH YOUR MEDICATIONS? NO . WHEN DID YOU LAST EAT? ____05/25/19 . WHEN DID YOU LAST DRINK? ____05/25/19 . WHAT DID YOU LAST DRINK? ____SODA . NAME OF PERSON DRIVING YOU HOME? ____ . DO YOU HAVE ANY OTHER QUESTIONS OR CONCERNS NO . VITAL SIGNS WT 176 LBS, HT 70 IN, BMI 25.25 INDEX, BP 137/82 MM HG, HR 77 /MIN, RR 18 /MIN, TEMP 97.0 F, OXYGEN SAT % 98%, SAFE IN ENV? (Y/N) YES, NA INITIALS SC 09:03, REVIEWED BY: VD. EXAMINATION GENERAL EXAMINATION: PATIENT IS ALERT O X 3 AND COOPERATIVE. TENDERNESS IN THE CERVICAL AREA. PATIENT CAN ABDUCT THE UPPER EXTREMITIES TO THE SHOULDER LEVEL. LEFT ARM IS WEAKER AT EXTENSION AND FLEXION. MRI OF THE CERVICAL SPINE DONE ON 01/05/2019 IS SHOWING A BULGING DISC AT C5-C6 AND C6-C7. ASSESSMENTS CERVICAL DISC DISORDER WITH RADICULOPATHY OF CERVICAL REGION - M50.10 (PRIMARY) TREATMENT CERVICAL DISC DISORDER WITH RADICULOPATHY OF CERVICAL REGION CLINICAL NOTES: WE DISCUSSED SEVERAL ISSUES WITH MR. DAIGLE'S PAIN MANAGEMENT CASE. DUE TO THE CERVICAL RADICULOPATHY, I WOULD LIKE TO MOVE FORWARD WITH A CERVICAL EPIDURAL STEROID INJECTION AT THIS TIME. WE DISCUSSED THE BENEFITS, RISKS, AND ALTERNATIVES OF THE INJECTION AND THE PATIENT WOULD LIKE TO PROCEED. THE PATIENT WILL FOLLOW UP WITH A NURSE PRACTITIONER IN A FEW WEEKS. INSTRUCTIONS WERE GIVEN, QUESTIONS WERE ANSWERED, PATIENT REPORTS UNDERSTANDING AND AGREES WITH THE PLAN. I, WILBER MENDOZA, DOCUMENTED THE ABOVE INFORMATION ACTING A SCRIBE FOR DR. ANTOINE. I HAVE REVIEWED THE ABOVE DOCUMENT, WRITTEN BY WILBER CANAS AND I VERIFY THAT IT IS ACCURATE. . PROCEDURES PN CERVICAL EPIDURAL PRE PROCEDURE DIAGNOSIS CERVICAL DISC DISORDER WITH RADICULOPATHY POST PROCEDURE DIAGNOSIS CERVICAL DISC DISORDER WITH RADICULOPATHY PROCEDURE CERVICAL EPIDURAL STEROID INJECTION UNDER FLUOROSCOPIC GUIDANCE SURGEON DR. BONY ANTOINE SECURITY SYSTEM ENGINEER NONE ANESTHESIA LOCAL PRE PROCEDURE NOTE THE PATIENT HAS A HISTORY OF CHRONIC CERVICAL PAIN. I EVALUATE THE PATIENT AND REVIEWED THE CHART. I WENT OVER THE RISKS, ALTERNATIVES, AND BENEFITS ASSOCIATED WITH THIS PROCEDURE. THE PATIENT WOULD LIKE TO PROCEED AND GIVE CONSENT TO PERFORMED THE PROCEDURE. THE PATIENT DENIES UNEXPLAINABLE WEIGHT LOSS, FEVER, CHILLS, OR NEW CHANGES IN URINARY OR BOWEL CONTROL DESCRIPTION OF PROCEDURE THE PATIENT WAS BROUGHT TO THE PROCEDURE ROOM AND PLACED IN THE PRONE POSITION. THE CERVICOTHORACIC AREA WAS CLEANED WITH BETADINE SOLUTION AND DRAPED ASEPTICALLY. THE PROCEDURE WAS DONE UNDER STERILE CONDITIONS. I CHECKED LATERALITY AND THE LEVEL WHERE THE PROCEDURE WAS GOING TO BE PERFORMED WITH THE PATIENT AND THE SUPPORTING STAFF AT THE MOMENT OF THE TIME OUT IN THE PROCEDURE ROOM. UNDER FLUOROSCOPIC GUIDANCE, THE TARGET WAS SELECTED AT THE INTERLAMINAR LEVEL OF C7-T1. LIDOCAINE WAS USED TO NUMB THE SKIN AND THE SUBCUTANEOUS TISSUE BELOW IT. EPIDURAL TUOHY NEEDLE 17-GAUGE WAS ADVANCED UNDER FLUOROSCOPIC GUIDANCE AND FOLLOWING PATIENT FEEDBACK UNTIL THE EPIDURAL SPACE WAS REACHED 6 CM DEEP INTO THE SKIN BY THE LOSS OF RESISTANCE TECHNIQUE. ISOVUE M DYE WAS INJECTED SHOWING ADEQUATE SPREAD OF THE DYE. THEN, A SOLUTION OF 3 ML OF NORMAL SALINE WITH DEPO-MEDROL 60 MG WAS INJECTED SLOWLY FOLLOWING PATIENT FEEDBACK. THERE WAS NO EVIDENCE OF BLOOD, PARESTHESIA OR CEREBROSPINAL FLUID DURING THE PROCEDURE. THE PATIENT WAS SENT TO THE RECOVERY ROOM. THE PATIENT WAS MOVING THE EXTREMITIES AND DOING WELL. THERE WAS NO COMPLICATION DURING THE PROCEDURE. FLUOROSCOPY TIME WAS 8 SECONDS POST PROCEDURE NOTE THE PATIENT WILL BE SEEN IN A FOLLOW UP IN THE NEXT FEW WEEKS. INSTRUCTIONS WERE GIVEN, QUESTIONS WERE ANSWERED, AND THE PATIENT EXPRESSED UNDERSTANDING AND AGREES WITH THE PLAN. I, WILBER MENDOZA, DOCUMENTED THE ABOVE INFORMATION ACTING A SCRIBE FOR DR. ANTOINE. I HAVE REVIEWED THE ABOVE DOCUMENT, WRITTEN BY WILBER CANAS AND I VERIFY THAT IT IS ACCURATE. DIAGNOSTIC IMAGING [facility] FLUORO GUIDE SPINE INJECTION (PAIN)[id number] PROCEDURE CODES 6045F RADXPS IN END [id number] PXD [id number] CERVICAL/THORACIC W/ IMAGING DISPOSITION & COMMUNICATION FOLLOW UP 3 WEEKS ELECTRONICALLY SIGNED BY BONY ANTOINE MD, MD ON 05/28/2019 AT 11:22 AM EDT DISCLAIMER : THIS IS A VISIT SUMMARY EXTRACTED FROM THE [employer] CHART. IT IS NOT A COPY OF THE [employer] PROGRESS NOTE. MTDD
== END ==
LOC: M PAIN 08:45
PROVIDERS: ATTEND Anesthesiology
DX: M50.10 Cervical disc disorder with radiculopathy, unspecified cervical region (principal); E11.9 Type 2 diabetes mellitus without complications; G43.909 Migraine, unspecified, not intractable, without status migrainosus; I48.0 Paroxysmal atrial fibrillation; I10 Essential (primary) hypertension; K21.9 Gastro-esophageal reflux disease without esophagitis; E78.00 Pure hypercholesterolemia, unspecified; M10.9 Gout, unspecified; N40.0 Benign prostatic hyperplasia without lower urinary tract symptoms; N52.9 Male erectile dysfunction, unspecified; K50.90 Crohn's disease, unspecified, without complications; G61.0 Guillain-Barre syndrome; Z79.82 Long term (current) use of aspirin; Z79.84 Long term (current) use of oral hypoglycemic drugs; Z79.891 Long term (current) use of opiate analgesic; Z79.899 Other long term (current) drug therapy; Z98.84 Bariatric surgery status; Z90.49 Acquired absence of other specified parts of digestive tract
CPT/HCPCS: 62321; J1030; Q9966

== ENCOUNTER → 2019-06-15 | Outpatient (CLI) | payer OTHER ==
[~2019-06-15] MED LIST changes: +AMLO25TA PO; +CYAN500T9 PO; -ISOVUE-M 200 41% 20ML VIAL (Q9966) As Ordered ONE; -LIDOCAINE 1% SDV INJ 30 ML VIAL As Ordered ONE; +MICR1TAB5 PO; -VITA-193 PO; +[UNRECOGNIZED DRUG - CODE]; -diazePAM 5 MG TAB As Ordered ONE; -methylPREDNISolone SUSP 40 MG/ML (DEPO-medrol) VIAL (J1030) As Ordered ONE; -oxyCODONE 5MG TAB As Ordered ONE
--- NOTE | 2019-06-30 00:34 | ECWPNPC ---
PATIENT NAME: HAI DAIGLE : 1965 GENDER: MALE VISIT DATE: 06/15/2019 DISCHARGE DATE: 06/15/19942 VISIT LOCKED DATE TIME: PHYSICIAN: BRITT LANCASTER RESOURCE: BRITT LANCASTER REASON FOR APPOINTMENT 1. POST PROC HISTORY OF PRESENT ILLNESS HISTORY OF PRESENT ILLNESS: HERE FOR POST PROCEDURE F/U.HAD KILO ON 05/26/19.REPORTING RESOLUTION IN LEFT ARM PAIN THAT CONTINUES TODAY.CHIEF AREA OF PAIN IS MID THORACIC.RATING PAIN VAS 2/10. PAIN THE PATIENT DESCRIBES THE PAIN... FALL RISK SCREENING: SCREENING :NO FALLS REPORTED IN THE LAST YEAR CURRENT MEDICATIONS TAKING AMLODIPINE BESYLATE 2.5 MG TABLET 1 TABLET ORALLY ONCE A DAY, NOTES: 05/25/19@0800 TAKING ASPIR-81 81 MG TABLET DELAYED RELEASE 1 TABLET ORALLY EVERY OTHER DAY, NOTES: 05/25/19@799 TAKING CITRACAL PLUS 400MG TABLET 2 TABS ORALLY AT BEDTIME, NOTES: 05/25/19 TAKING FLECAINIDE ACETATE 50 MG TABLET 1 TABLET ORALLY EVERY 12 HRS, NOTES: 05/25/19 TAKING VITAMIN D3 MAXIMUM STRENGTH 5000 UNIT CAPSULE 1 CAPSULE ORALLY DAILY, NOTES: 05/25/1908 TAKING VITAMIN B-12 500 MCG TABLET 1 TABLET ORALLY ONCE A DAY, NOTES: 05/25/19@08 TAKING TRULICITY 0.75 MG/0.5ML SOLUTION PEN-INJECTOR SUBCUTANEOUS WEEKLY, NOTES: 05/22/19 TAKING PRILOSEC 40 MG CAPSULE DELAYED RELEASE 1 CAPSULE ORALLY ONCE A DAY, NOTES: 05/25/19230 TAKING POTASSIUM BICARB & CHLORIDE 20 MEQ PACKET 2 TABS ORALLY TWICE A DAY, NOTES: 05/25/19 TAKING METFORMIN HCL 1000 MG TABLET 1 TABLET WITH MEALS ORALLY TWICE DAILY, NOTES: 05/25/19230 TAKING PROBIOTIC 1 CAPSULE 1 CAP ORALLY DAILY, NOTES: 05/25/19@0800 TAKING MAGNESIUM 400 MG CAPSULE 1 CAP ORALLY BID, NOTES: 05/25/19 TAKING BISOPROLOL FUMARATE 5 MG TABLET 1 TABLET ORALLY ONCE A DAY, NOTES: 05/25/19230 TAKING LIPITOR 10 MG TABLET 1 TABLET ORALLY ONCE A DAY, NOTES: 05/25/19 TAKING MULTI FOR HIM TABLET 2 TABS ORALLY DAILY, NOTES: 05/25/19@0800 TAKING JARDIANCE 10 MG TABLET 1 TABLET ONCE A DAY, NOTES: 05/25/19@0800 TAKING TAMSULOSIN HCL 0.4 MG CAPSULE 1 CAPSULE ONCE A DAY, NOTES: 05/25/19@0800 TAKING ZOFRAN 8 MG TABLET 1 TABLET ORALLY Q 8 HOURS NEEDED, NOTES: 1 WEEK AGO TAKING LOSARTAN POTASSIUM 25 MG TABLET 1 TABLET ORALLY ONCE A DAY, NOTES: 05/25/19@0800 TAKING SPIRONOLACTONE 25 MG TABLET 1 TABLET ORALLY ONCE A DAY, NOTES: 05/25/19@0800 TAKING TOPIRAMATE 50 MG TABLET 1 TABLET ORALLY BEFORE BEDTIME, NOTES: 05/25/19@2300 TAKING COLCRYS 0.6 MG TABLET 1 TABLET PRN ORALLY ONCE A DAY, NOTES: NONE RECENTLY TAKING PERCOCET 5-325 MG TABLET 1 TO 2 TAB ORALLY Q6H PRN MDD 4, NOTES: 05/25/19@2300 TAKING CYMBALTA 60 MG CAPSULE DELAYED RELEASE PARTICLES 1 CAPSULE ORALLY BEFORE BEDTIME, NOTES: 05/25/19@2300 TAKING TIZANIDINE HCL 2 MG TABLET 1 TABLET NEEDED ORALLY EVERY 8 HRS, NOTES: 05/25/19@2300 TAKING GABAPENTIN 300 MG CAPSULE 1 CAPSULE ORALLY BEFORE BEDTIME, NOTES: 05/25/19@2300 TAKING SOMA 350 MG TABLET 1 TABLET NEEDED ORALLY FOR SPASMS AND PAIN EVERY 12 HOURS NEEDED MDD2, NOTES: 2 DAYS AGO TAKING PERCOCET 5-325 MG TABLET 1 TABLET NEEDED ORALLY EVERY 6 HRS MDD4 NOT-TAKING ENTOCORT EC 3 MG CAPSULE DELAYED RELEASE PARTICLES DIRECTED ORALLY , NOTES: 2 WEEKS NOT-TAKING MELATONIN 5 MG TABLET 1 TABLET AT BEDTIME NEEDED WITH FOOD ORALLY ONCE A DAY, NOTES: NONE RECTLY MEDICATION LIST REVIEWED AND RECONCILED WITH THE PATIENT PAST MEDICAL HISTORY DIABETES MIGRAINES PAF - INTERMITTENT A-FIB HTN GERD HIGH CHOLESTEROL GUILLAIN BARRE PNEUMONIA ILIEITIS GOUT A FIB WITH RVR DIVERTICULITIS BPH ED ILEITIS BROKEN LEFT RING FINGER MULTIPLY GI PROBLEMS CHRON'S ALLERGIES N.K.D.A. SURGICAL HISTORY BOWEL RESECTION 2013 RIGHT KNEE ARTHROSCOPY 2013 GASTRIC BYPASS RIGHT INGUINAL HERNIA REPAIR 06/24/18 CHOLECYSTECTOMY 11/2018 FAMILY HISTORY FATHER: , DIAGNOSED WITH DIABETES, CANCER MOTHER: , OTHER, DIABETES, HYPERTENSION SIBLINGS: ALIVE 4 BROTHER(S) , 2 SISTER(S) . 1 SON(S) , 1 DAUGHTER(S) - HEALTHY. 1 SISTER . 1 SISTER HAS ALOT OF MEDICAL ISSUES ALSO. SOCIAL HISTORY GENERAL: TOBACCO USE ARE YOU A:NONSMOKER OTHERS AT HOME: SPOUSE. EDUCATION LEVEL OF EDUCATION:FINISHED HIGH SCHOOL DIET: REGULAR. LANGUAGE LANGUAGES SPOKEN:HUNGARIAN DOMESTIC VIOLENCE DO YOU FEEL SAFE IN YOUR ENVIRONMENT?YES RECREATIONAL DRUG USE DRUG USE?NO EXERCISE: WALKS. LEARNING BARRIERS / SPECIAL NEEDS CHANGE FROM LAST VISIT?NO BARRIERS TO LEARNING?NO HEARING IMPAIRED?NO VISION IMPAIRED?YES :CORRECTIVE LENSES COGNITIVELY IMPAIRED?NO READINESS TO LEARN?YES LEARNING PREFERENCES?NO LEARNING CAPABILITIES PRESENT?YES EMOTIONAL BARRIERS?NO SPECIAL DEVICES?NO PARTS ASSEMBLER NEEDED?NO PAIN CLINIC PFS, CLERGY, PUBLIC HEALTH REFERRALS PFS REFERRAL NEEDED?NO CLERGY REFERRAL NEEDED?NO PUBLIC HEALTH REFERRAL NEEDED?NO WAS THE PROVIDER NOTIFIED OF ANY PERTINENT INFO? N/A HAS THE PATIENT BEEN EDUCATED REGARDING HIS/HER PLAN OF CARE?YES HAS THE PATIENT BEEN EDUCATED REGARDING PAIN, THE RISK FOR PAIN, THE IMPORTANCE OF EFFECTIVE PAIN MANAGEMENT, AND THE PAIN ASSESSMENT PROCESS?YES LATEX QUESTIONNAIRE LATEX ALLERGY : HAVE YOU EVER DEVELOPED ANY TYPE OF REACTION AFTER HANDLING LATEX PRODUCTS SUCH RUBBER GLOVES, CONDOMS, DIAPHRAGMS, BALLOONS, SOCKS, OR UNDERWEAR?NO LATEX ALLERGY : HAVE YOU EVER DEVELOPED ANY TYPE OF REACTION DURING OR AFTER DENTAL APPOINTMENT, VAGINAL/RECTAL EXAMINATION, SURGICAL PROCEDURE, OR ANY OTHER EXPOSURE?NO LATEX RISK : HAVE YOU EVER HAD ANY DIFFICULTY BREATHING OR HIVES AFTER EATING OR HANDLING ANY FRUITS, OR VEGETABLES; SUCH KIWI, BANANAS, STONE FRUITS, OR CHESTNUTSNO LATEX RISK : DO YOU HAVE A PREVIOUS PERSONAL HISTORY OF MORE THAN NINE SURGERIES, SPINA BIFIDA, OR REPEATED CATHERIZATIONS? NO LATEX RISK : ARE YOU FREQUENTLY EXPOSED TO LATEX PRODUCTS IN YOUR OCCUPATION?NO DATE ASKED : 05/26/2019 CAFFEINE CAFFEINE USE?YES 1-2 SODA/DAY ADVANCE DIRECTIVE ADVANCE DIRECTIVE DISCUSSED WITH PATIENT:YES HCP ON FILE , AUDREY [phone] ORIENTAL ORTHODOX [id number] OTHER MARITAL STATUS: . 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 SEXUAL HX HAD SEX IN THE LAST 12 MONTHS (VAGINAL, ORAL, OR ANAL)?NO HAVE YOU EVER HAD AN STD?NO 12/01/18 REVIEWED WITH PT. ADREVIEWED WITH PATIENT 03/01/19 1406 JSREVIEWED WITH PATIENT 06/14/19 0910 LAS. HOSPITALIZATION/MAJOR DIAGNOSTIC PROCEDURE SURGERY RELATED GUILLAIN BARRE REQUIRING PLASMAPHERESIS, IVIG, STEROIDS AND INTUBATION [facility] 09/2015 PNEUMONIA, ILEITIS 02/2018 REVIEW OF SYSTEMS REVIEWED BY: PROVIDER: BRITT RESENDIZ . CONSTITUTIONAL: ANY CHANGE IN YOUR MEDICAL CONDITION? NO . CHILLS NO . FEVER NO . INFECTION: DO YOU HAVE NEW INFECTIONS? NO . DO YOU HAVE HISTORY OF MRSA? NO . MUSCULOSKELETAL: ANY NEW PATTERNS OF PAIN OR NUMBNESS? YES INCREASED THORACIC PAIN X 2 WEEKS. HAD A CERVICAL EPIDURAL 05/26/19 WHICH HAS HELPED HIS NECK PAIN . GASTROENTEROLOGY: ANY NEW CHANGE IN BOWEL CONTROL? NO . GENITOURINARY: ANY NEW CHANGE IN BLADDER CONTROL? NO . IS THERE A CHANCE YOU COULD BE ? NO . HEMATOLOGY/LYMPH: DO YOU TAKE ANY BLOOD THINNERS? (FOR EXAMPLE- COUMADIN, PLAVIX, AGGRENOX, PLATEL, PRADAXA, OR XARELTO) NO . WHEN WAS YOUR LAST DOSE? DATE: TIME: . NEUROLOGY: HAVE YOU FALLEN IN THE PAST 12 MONTHS? YES NONE RECENT . ANY NEW EXTREMITY NUMBNESS OR WEAKNESS? NO . CARDIOLOGY: DO YOU HAVE A PACEMAKER OR DEFIBRILLATOR? NO . RESPIRATORY: HAVE YOU BEEN SICK IN THE PAST WEEK? NO . FEVER NO . FLU LIKE SYMPTOMS? NO . COUGH NO . INTEGUMENTARY: DO YOU HAVE ANY RASHES OR OPEN SORES? NO . ALLERGIC/IMMUNO: ARE YOU ALLERGIC TO IV DYE? NO . ANY NEW ALLERGIES? NO . PSYCHIATRIC: DO YOU HAVE THOUGHTS OF HURTING YOURSELF OR SOMEONE ELSE? NO . ARE YOU ABUSED, NEGLECTED, OR IN AN UNSAFE ENVIRONMENT? NO . ENDOCRINOLOGY: ARE YOU DIABETIC? YES . OTHER: DO YOU NEED ANY PRESCRIPTIONS? NO . IF YES, PLEASE LIST: ____ . ANY NEW PROBLEMS WITH YOUR MEDICATIONS? NO . WHEN DID YOU LAST EAT? ____ . WHEN DID YOU LAST DRINK? ____ . WHAT DID YOU LAST DRINK? ____ . NAME OF PERSON DRIVING YOU HOME? ____ . DO YOU HAVE ANY OTHER QUESTIONS OR CONCERNS NO . VITAL SIGNS WT 176 LBS, HT 70 IN, BMI 25.25 INDEX, BP 101/63 MM HG, HR 69 /MIN, RR 18 /MIN, TEMP 96.3 F, OXYGEN SAT % 98%, NA INITIALS SC 09:01. EXAMINATION GENERAL EXAMINATION: LUNGS: LUNG SOUNDS ARE CLEAR . HEART: HEART RATE REGULAR . MUSCULOSKELETAL:*, MUSCLE STRENGTH TESTING 5/5 BILATERAL UPPER EXTREMITIES. . THORACIC SPINE TRIGGER POINTS ELICITED MID SCAPULAR-T5/6 PARASPINAL. DIAGNOSTIC TESTS REVIEWED CERVICAL MRI -10/24/15. ASSESSMENTS MYALGIA, OTHER SITE - M79.18 (PRIMARY) TREATMENT MYALGIA, OTHER SITE CONTINUE SOMA TABLET, 350 MG, 1 TABLET NEEDED, ORALLY FOR SPASMS AND PAIN, EVERY 12 HOURS NEEDED MDD2, NOTES: 2 DAYS AGO NOTES: TPI MID SCAPULAR. PREVENTIVE MEDICINE PAIN CLINIC TEACHING: PROCEDURE TEACHING TRIGGER POINT INJECTIONS PROCEDURE REVIEWED WITH PATIENT, PRE PROCEDURE INSTRUCTIONS REVIEWED. PT VERBALIZES UNDERSTANDING. LAS. PROCEDURE CODES FA211 ESTABILISHED PATIENT [facility] CHARGE DISPOSITION & COMMUNICATION FOLLOW UP POST (REASON: TPI MID SCAPULAR) ELECTRONICALLY SIGNED BY MARTÍN GOLDBERG ON 06/29/2019 AT 01:18 PM EDT DISCLAIMER : THIS IS A VISIT SUMMARY EXTRACTED FROM THE [employer] CHART. IT IS NOT A COPY OF THE [employer] PROGRESS NOTE. TERESA
== END ==
LOC: M PAIN 08:45
PROVIDERS: ATTEND Nurse Practitioner Family
DX: M79.18 Myalgia, other site (principal); E11.9 Type 2 diabetes mellitus without complications; G43.909 Migraine, unspecified, not intractable, without status migrainosus; I10 Essential (primary) hypertension; K21.9 Gastro-esophageal reflux disease without esophagitis; E78.00 Pure hypercholesterolemia, unspecified; Z98.84 Bariatric surgery status; Z79.82 Long term (current) use of aspirin; Z79.84 Long term (current) use of oral hypoglycemic drugs; Z79.891 Long term (current) use of opiate analgesic; Z79.899 Other long term (current) drug therapy

== ENCOUNTER → 2019-06-18 | Outpatient (REF) | payer OTHER ==
[2019-06-18 12:55] LABS: HEMATOCRIT 49.3 % (42.0-52.0); HEMOGLOBIN 16.2 g/dl (13.5-17.5); MEAN CORPUSCULAR HEMOGLOBIN 30.1 pg (27.0-33.0); MEAN CORPUSCULAR HGB CONC 32.9 g/dl (32.0-36.5); MEAN CORPUSCULAR VOLUME 91.5 fl (80.0-96.0); PLATELET COUNT, AUTOMATED 244 10^3/uL (150-450); RED BLOOD COUNT 5.39 10^6/uL (4.30-6.10); WHITE BLOOD COUNT 5.9 10^3/uL (4.0-10.0)
[2019-06-18 13:24] LABS: ALBUMIN 3.8 GM/DL (3.2-5.2); ALT/SGPT 23 U/L (12-78); BILIRUBIN,TOTAL 0.5 MG/DL (0.2-1.0); BLOOD UREA NITROGEN 14 MG/DL (7-18); C REACTIVE PROTEIN QUANTITATIV < 0.30 MG/DL (0.00-0.30); CALCIUM LEVEL 9.8 MG/DL (8.5-10.1); CARBON DIOXIDE LEVEL 33 MEQ/L (21-32); CHLORIDE LEVEL 109 MEQ/L (98-107); CREATININE FOR GFR 1.04 MG/DL (0.70-1.30); GLOMERULAR FILTRATION RATE > 60.0 (>56); GLUCOSE, FASTING 164 MG/DL (70-100); MAGNESIUM LEVEL 2.4 MG/DL (1.8-2.4); SODIUM LEVEL 143 MEQ/L (136-145); TOTAL PROTEIN 6.5 GM/DL (6.4-8.2)
[2019-06-18 13:37] LABS: TOTAL 25(OH) VITAMIN D 64.2 NG/ML (30.0-100.0)
[2019-06-18 13:38] LABS: VITAMIN B12 LEVEL 1982 PG/ML (247-911)
== END ==
LOC: M LABDRWAD 12:01
PROVIDERS: ATTEND Internal Medicine Gastroenterology
DX: R19.7 Diarrhea, unspecified (principal); R10.84 Generalized abdominal pain; K50.00 Crohn's disease of small intestine without complications; K44.9 Diaphragmatic hernia without obstruction or gangrene; K21.9 Gastro-esophageal reflux disease without esophagitis; E55.9 Vitamin D deficiency, unspecified

== ENCOUNTER 2019-06-25 08:27 | Emergency (ER) | payer OTHER ==
[~2019-06-25] VITALS: Ht 177.8 cm; Wt 77.3 kg
[~2019-06-25 08:27] MED LIST changes: -AMLO25TA PO; +BISO5TAB14 PO; -BISO5TAB5 PO; -MICR1TAB5 PO; -OMEP40CA2 PO; +OMEP40CA97 PO; -[UNRECOGNIZED DRUG - CODE]
[2019-06-25] MEDS ORDERED: MICR1TAB5 PO (09:03)
[2019-06-25] MEDS ORDERED: AMLO25TA PO (09:03)
--- NOTE | 2019-06-25 09:12 | REP ---
Head CT without contrast: History: No deficits. CT brain stroke protocol. Comparison study: Comparison brain CT study December 10, 2018. CT findings: Bone window settings demonstrate an intact bony calvarium. There is no evidence of skull fracture or incidental bony calvarial lesion. The visualized paranasal sinuses appear clear. No intraorbital abnormality is seen. On soft tissue window setting images; the lateral, third, and fourth ventricles are normal in size and position. Buck-white differentiation pattern is normal above and below the tentorium. There are is no evidence of intracranial hemorrhage. No mass, edema, infarction, or midline shift is seen. No extra-axial fluid collection is appreciated. Impression: Negative noncontrast head CT. Electronically Signed by Nick Stanley MD 06/25/2019 09:11 A
[2019-06-25] MEDS ORDERED: diphenhydrAMINE INJ 50MG/ML VIAL (J1200) IV STA (09:15)
[2019-06-25] MEDS ORDERED: KETOROLAC 30 MG/ML VIAL (J1885) IV ONE (09:15)
[2019-06-25] MEDS ORDERED: METOCLOPRAMIDE INJ 10MG/2ML VIAL (J2765) IV ONE ×2 (09:15→11:45)
[2019-06-25] MEDS ORDERED: NS 1,000 ML IV ONE (09:15)
[2019-06-25] MEDS ORDERED: dexameTHASONE 20 MG/5 ML VIAL (J1100) IV ONE (09:15)
[2019-06-25] MEDS ORDERED: MORPHINE 4 MG/ML 1ML VIAL/SYRINGE (J2270) IV ONE (12:30)
--- NOTE | 2019-06-25 14:17 | REP ---
MRI brain without contrast: History: Complex migraine versus CVA. . Comparison study: Comparison study December 11, 2018. Technique: Axial and sagittal imaging planes are utilized for T1 and T2-weighted scans. Sequences include spin-echo, fast spin echo, FLAIR, and diffusion weighted sequences. MRI findings: No bony calvarial lesion is seen. Craniocervical junction and upper cervical cord are normal in appearance. There is no MR evidence of significant paranasal sinus disease. No intraorbital abnormality is seen. The lateral, third, and fourth ventricles are normal in size and position. Buck-white differentiation pattern is intact above and below the tentorium. There is no evidence of intracranial hemorrhage. No mass, infarction, extra-axial fluid collection or midline shift is seen. No abnormal white matter lesion is seen. Impression: Negative noncontrast brain MRI study. Electronically Signed by Nick Stanley MD 06/25/2019 02:09 P
[2019-06-25] MEDS ORDERED: [UNRECOGNIZED DRUG - CODE] (16:14)
[2019-06-25 16:27] VITALS: BP 165/95
== END 2019-06-25 16:29 | disposition home or self-care (01) ==
LOC: M ED 08:27
DX: G43.909 Migraine, unspecified, not intractable, without status migrainosus (principal); I10 Essential (primary) hypertension; I48.91 Unspecified atrial fibrillation; E78.5 Hyperlipidemia, unspecified; G61.0 Guillain-Barre syndrome; N40.0 Benign prostatic hyperplasia without lower urinary tract symptoms; Z98.84 Bariatric surgery status; Z79.899 Other long term (current) drug therapy; Z79.84 Long term (current) use of oral hypoglycemic drugs; Z79.82 Long term (current) use of aspirin
CPT/HCPCS: 70450; 70551; 96374; 96375; 96376; 99285; J1100; J1200; J1885; J2270; J2765

== ENCOUNTER → 2019-07-01 | Outpatient (CLI) | payer OTHER ==
[~2019-07-01] MED LIST changes: +AMLO25TA PO; +BUPIVACAINE HCL 0.25% 10 ML VIAL As Ordered ONE; +BUPIVACAINE HCL 0.25% 30 ML VIAL As Ordered ONE; +MICR1TAB5 PO; +TRIAMCINOLONE ACETONIDE SUSP 40 MG/ML VIAL (J3301) As Ordered ONE; +[UNRECOGNIZED DRUG - CODE]
--- NOTE | 2019-07-08 23:30 | ECWPNPC ---
PATIENT NAME: HAI DAIGLE : 1965 GENDER: MALE VISIT DATE: 07/01/2019 DISCHARGE DATE: 07/01/19 1007 VISIT LOCKED DATE TIME: PHYSICIAN: BONY ANTOINE MD RESOURCE: BONY ANTOINE MD REASON FOR APPOINTMENT 1. TPI BILAT THORACIC HISTORY OF PRESENT ILLNESS HISTORY OF PRESENT ILLNESS: PAIN THE PATIENT DESCRIBES THE PAIN... FALL RISK SCREENING: SCREENING :NO FALLS REPORTED IN THE LAST YEAR CURRENT MEDICATIONS TAKING AMLODIPINE BESYLATE 2.5 MG TABLET 1 TABLET ORALLY ONCE A DAY TAKING ASPIR-81 81 MG TABLET DELAYED RELEASE 1 TABLET ORALLY EVERY OTHER DAY TAKING CITRACAL PLUS 400MG TABLET 2 TABS ORALLY AT BEDTIME TAKING FLECAINIDE ACETATE 50 MG TABLET 1 TABLET ORALLY EVERY 12 HRS TAKING VITAMIN D3 MAXIMUM STRENGTH 5000 UNIT CAPSULE 1 CAPSULE ORALLY DAILY TAKING VITAMIN B-12 500 MCG TABLET 1 TABLET ORALLY ONCE A DAY TAKING TRULICITY 0.75 MG/0.5ML SOLUTION PEN-INJECTOR SUBCUTANEOUS WEEKLY, NOTES: 06/26/19 TAKING PRILOSEC 40 MG CAPSULE DELAYED RELEASE 1 CAPSULE ORALLY ONCE A DAY TAKING POTASSIUM BICARB & CHLORIDE 20 MEQ PACKET 2 TABS ORALLY TWICE A DAY TAKING METFORMIN HCL 1000 MG TABLET 1 TABLET WITH MEALS ORALLY TWICE DAILY, NOTES: 06/30/19 2000 TAKING PROBIOTIC 1 CAPSULE 1 CAP ORALLY DAILY TAKING MAGNESIUM 400 MG CAPSULE 1 CAP ORALLY BID TAKING BISOPROLOL FUMARATE 5 MG TABLET 1 TABLET ORALLY ONCE A DAY TAKING LIPITOR 10 MG TABLET 1 TABLET ORALLY ONCE A DAY TAKING MULTI FOR HIM TABLET 2 TABS ORALLY DAILY TAKING JARDIANCE 10 MG TABLET 1 TABLET ONCE A DAY, NOTES: 06/30/19 0500 TAKING TAMSULOSIN HCL 0.4 MG CAPSULE 1 CAPSULE ONCE A DAY TAKING ZOFRAN 8 MG TABLET 1 TABLET ORALLY Q 8 HOURS NEEDED TAKING LOSARTAN POTASSIUM 25 MG TABLET 1 TABLET ORALLY ONCE A DAY TAKING SPIRONOLACTONE 25 MG TABLET 1 TABLET ORALLY ONCE A DAY TAKING TOPIRAMATE 50 MG TABLET 1 TABLET ORALLY BEFORE BEDTIME TAKING COLCRYS 0.6 MG TABLET 1 TABLET PRN ORALLY ONCE A DAY TAKING CYMBALTA 60 MG CAPSULE DELAYED RELEASE PARTICLES 1 CAPSULE ORALLY BEFORE BEDTIME TAKING TIZANIDINE HCL 2 MG TABLET 1 TABLET NEEDED ORALLY EVERY 8 HRS TAKING GABAPENTIN 300 MG CAPSULE 1 CAPSULE ORALLY BEFORE BEDTIME TAKING PERCOCET 5-325 MG TABLET 1 TABLET NEEDED ORALLY EVERY 6 HRS MDD4 TAKING SOMA 350 MG TABLET 1 TABLET NEEDED ORALLY FOR SPASMS AND PAIN EVERY 12 HOURS NEEDED MDD2 TAKING DICYCLOMINE HCL 20 MG TABLET 1 TABLET NEEDED ORALLY QID TAKING COLESTIPOL HCL 1 GM TABLET 1 TABLET NEEDED ORALLY TID TAKING MELATONIN 5 MG TABLET 1 TABLET AT BEDTIME NEEDED WITH FOOD ORALLY ONCE A DAY NOT-TAKING PERCOCET 5-325 MG TABLET 1 TO 2 TAB ORALLY Q6H PRN MDD 4, NOTES: DUPLICATE NOT-TAKING ENTOCORT EC 3 MG CAPSULE DELAYED RELEASE PARTICLES DIRECTED ORALLY , NOTES: 2 WEEKS MEDICATION LIST REVIEWED AND RECONCILED WITH THE PATIENT PAST MEDICAL HISTORY DIABETES MIGRAINES PAF - INTERMITTENT A-FIB HTN GERD HIGH CHOLESTEROL GUILLAIN BARRE PNEUMONIA ILIEITIS GOUT A FIB WITH RVR DIVERTICULITIS BPH ED ILEITIS BROKEN LEFT RING FINGER MULTIPLY GI PROBLEMS CHRON'S ALLERGIES N.K.D.A. SURGICAL HISTORY BOWEL RESECTION 2013 RIGHT KNEE ARTHROSCOPY 2013 GASTRIC BYPASS RIGHT INGUINAL HERNIA REPAIR 06/24/18 CHOLECYSTECTOMY 11/2018 FAMILY HISTORY FATHER: , DIAGNOSED WITH CANCER, DIABETES MOTHER: , DIABETES, HYPERTENSION, OTHER SIBLINGS: ALIVE 4 BROTHER(S) , 2 SISTER(S) . 1 SON(S) , 1 DAUGHTER(S) - HEALTHY. 1 SISTER . 1 SISTER HAS ALOT OF MEDICAL ISSUES ALSO. SOCIAL HISTORY GENERAL: TOBACCO USE ARE YOU A:NONSMOKER OTHERS AT HOME: SPOUSE. EDUCATION LEVEL OF EDUCATION:FINISHED HIGH SCHOOL DIET: REGULAR. LANGUAGE LANGUAGES SPOKEN:[place]ZBEK DOMESTIC VIOLENCE DO YOU FEEL SAFE IN YOUR ENVIRONMENT?YES RECREATIONAL DRUG USE DRUG USE?NO EXERCISE: WALKS. 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 N/A HAS THE PATIENT BEEN EDUCATED REGARDING HIS/HER PLAN OF CARE?YES HAS THE PATIENT BEEN EDUCATED REGARDING PAIN, THE RISK FOR PAIN, THE IMPORTANCE OF EFFECTIVE PAIN MANAGEMENT, AND THE PAIN ASSESSMENT PROCESS?YES LATEX QUESTIONNAIRE LATEX ALLERGY : HAVE YOU EVER DEVELOPED ANY TYPE OF REACTION AFTER HANDLING LATEX PRODUCTS SUCH RUBBER GLOVES, CONDOMS, DIAPHRAGMS, BALLOONS, SOCKS, OR UNDERWEAR?NO LATEX ALLERGY : HAVE YOU EVER DEVELOPED ANY TYPE OF REACTION DURING OR AFTER DENTAL APPOINTMENT, VAGINAL/RECTAL EXAMINATION, SURGICAL PROCEDURE, OR ANY OTHER EXPOSURE?NO LATEX RISK : HAVE YOU EVER HAD ANY DIFFICULTY BREATHING OR HIVES AFTER EATING OR HANDLING ANY FRUITS, OR VEGETABLES; SUCH KIWI, BANANAS, STONE FRUITS, OR CHESTNUTSNO LATEX RISK : DO YOU HAVE A PREVIOUS PERSONAL HISTORY OF MORE THAN NINE SURGERIES, SPINA BIFIDA, OR REPEATED CATHERIZATIONS? NO LATEX RISK : ARE YOU FREQUENTLY EXPOSED TO LATEX PRODUCTS IN YOUR OCCUPATION?NO DATE ASKED : 05/26/2019 CAFFEINE CAFFEINE USE?YES 1-2 SODA/DAY ADVANCE DIRECTIVE ADVANCE DIRECTIVE DISCUSSED WITH PATIENT:YES HCP ON FILE AUDREY [phone] [facility] [id number] OTHER MARITAL STATUS: . 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 SEXUAL HX HAD SEX IN THE LAST 12 MONTHS (VAGINAL, ORAL, OR ANAL)?NO HAVE YOU EVER HAD AN STD?NO 12/01/18 REVIEWED WITH PT. ADREVIEWED WITH PATIENT 03/01/19 1406 JSREVIEWED WITH PATIENT 06/14/19 0910 LASREVIEWED WITH PATIENT 07/01/19 0908 JS. HOSPITALIZATION/MAJOR DIAGNOSTIC PROCEDURE SURGERY RELATED GUILLAIN BARRE REQUIRING PLASMAPHERESIS, IVIG, STEROIDS AND INTUBATION [facility] 09/2015 PNEUMONIA, ILEITIS 02/2018 REVIEW OF SYSTEMS REVIEWED BY: PROVIDER: . CONSTITUTIONAL: ANY CHANGE IN YOUR MEDICAL CONDITION? NO . CHILLS NO . FEVER NO . INFECTION: DO YOU HAVE NEW INFECTIONS? NO . DO YOU HAVE HISTORY OF MRSA? NO . MUSCULOSKELETAL: ANY NEW PATTERNS OF PAIN OR NUMBNESS? NO . GASTROENTEROLOGY: ANY NEW CHANGE IN BOWEL CONTROL? NO . GENITOURINARY: ANY NEW CHANGE IN BLADDER CONTROL? NO . IS THERE A CHANCE YOU COULD BE ? NO . HEMATOLOGY/LYMPH: DO YOU TAKE ANY BLOOD THINNERS? (FOR EXAMPLE- COUMADIN, PLAVIX, AGGRENOX, PLATEL, PRADAXA, OR XARELTO) NO . WHEN WAS YOUR LAST DOSE? DATE: TIME: . NEUROLOGY: HAVE YOU FALLEN IN THE PAST 12 MONTHS? NO . ANY NEW EXTREMITY NUMBNESS OR WEAKNESS? NO . CARDIOLOGY: DO YOU HAVE A PACEMAKER OR DEFIBRILLATOR? NO . RESPIRATORY: HAVE YOU BEEN SICK IN THE PAST WEEK? NO . FEVER NO . FLU LIKE SYMPTOMS? NO . COUGH NO . INTEGUMENTARY: DO YOU HAVE ANY RASHES OR OPEN SORES? NO . ALLERGIC/IMMUNO: ARE YOU ALLERGIC TO IV DYE? NO . ANY NEW ALLERGIES? NO . PSYCHIATRIC: DO YOU HAVE THOUGHTS OF HURTING YOURSELF OR SOMEONE ELSE? NO . ARE YOU ABUSED, NEGLECTED, OR IN AN UNSAFE ENVIRONMENT? NO . ENDOCRINOLOGY: ARE YOU DIABETIC? YES, DOES NOT CHECK FSBS AT HOME . OTHER: DO YOU NEED ANY PRESCRIPTIONS? NO . IF YES, PLEASE LIST: ____ . ANY NEW PROBLEMS WITH YOUR MEDICATIONS? NO . WHEN DID YOU LAST EAT? ____06/30/192299 . WHEN DID YOU LAST DRINK? ____06/30/192299 . WHAT DID YOU LAST DRINK? ____WATER . NAME OF PERSON DRIVING YOU HOME? ____MARY . DO YOU HAVE ANY OTHER QUESTIONS OR CONCERNS NO . VITAL SIGNS WT 172.6 LBS, HT 70 IN, BMI 24.76 INDEX, BP 113/65 MM HG, HR 78 /MIN, RR 18 /MIN, TEMP 97.3 F, OXYGEN SAT % 98%, SAFE IN ENV? (Y/N) YES, NA INITIALS [place] 08:43, REVIEWED BY: BRANNON. ASSESSMENTS MYALGIA, OTHER SITE - M79.18 (PRIMARY) PROCEDURES PN TRIGGER POINT INJECTION WITH STEROIDS PRE PROCEDURE DIAGNOSIS 1. MYALGIA 2. PAIN AT BILATERAL THORACIC AREA POST PROCEDURE DIAGNOSIS 1. MYALGIA 2. PAIN AT BILATERAL THORACIC AREA PROCEDURE TRIGGER POINT INJECTION AT RIGHT AND LEFT THORACIC AREA SURGEON DR. BONY ANTOINE OFFICE ELECTRICIAN NONE ANESTHESIA LOCAL PRE PROCEDURE NOTE THE PATIENT HAS A HISTORY OF CHRONIC PAIN AT THE RIGHT AND LEFT THORACIC AREA. I EVALUATED THE PATIENT AND REVIEWED THE CHART. THERE IS EVIDENCE OF BANDS OF TISSUE WITH RESTRICTION OF MOVEMENT AND PRESENCE OF TRIGGER POINT AT THE AFFECTED AREA. I WENT OVER THE RISKS, ALTERNATIVES, AND BENEFITS ASSOCIATED WITH THIS PROCEDURE. THE PATIENT WOULD LIKE TO PROCEED AND GIVE CONSENT TO PERFORMED THE PROCEDURE. THE PATIENT DENIES UNEXPLAINABLE WEIGHT LOSS, FEVER, CHILLS, OR NEW CHANGES IN URINARY OR BOWEL CONTROL DESCRIPTION OF PROCEDURE THE PATIENT WAS BROUGHT TO THE PROCEDURE ROOM AND PLACED IN THE SITTING POSITION. THE AREA WAS CLEANED WITH ALCOHOL. THE PROCEDURE WAS DONE USING ASEPTIC STERILE TECHNIQUE. I CHECKED LATERALITY AND THE LEVEL WHERE THE PROCEDURE WAS GOING TO BE PERFORMED WITH THE PATIENT AND THE SUPPORTING STAFF AT THE MOMENT OF THE TIME OUT IN THE PROCEDURE ROOM. USING A 25-GAUGE NEEDLE, TRIGGER POINTS WERE INJECTED AT THE RIGHT AND LEFT THORACIC AREA WITH A TOTAL OF 40 ML OF BUPIVACAINE 0.25% AND KENALOG 40 MG. THERE WAS NO EVIDENCE OF BLOOD, PARESTHESIA OR CEREBROSPINAL FLUID DURING THE PROCEDURE. THE PATIENT WAS SENT TO THE RECOVERY ROOM. THE PATIENT WAS MOVING THE EXTREMITIES AND DOING WELL. THERE WAS NO COMPLICATION DURING THE PROCEDURE POST PROCEDURE NOTE THE PATIENT WILL BE SEEN IN A FOLLOW UP IN THE NEXT FEW WEEKS. INSTRUCTIONS WERE GIVEN, QUESTIONS WERE ANSWERED, AND THE PATIENT EXPRESSED UNDERSTANDING AND AGREES WITH THE PLAN. I, ANIBAL CABALLERO, DOCUMENTED THE ABOVE INFORMATION ACTING A SCRIBE FOR DR. ANTOINE. I HAVE REVIEWED THE ABOVE DOCUMENT, WRITTEN BY ANIBAL CANAS AND I VERIFY THAT IT IS ACCURATE. PROCEDURE CODES 64960 INJ TRIGGER POINT / MUSCL DISPOSITION & COMMUNICATION FOLLOW UP 3 WEEKS ELECTRONICALLY SIGNED BY BONY ANTOINE MD, MD ON 07/08/2019 AT 11:00 AM EDT DISCLAIMER : THIS IS A VISIT SUMMARY EXTRACTED FROM THE [employer] CHART. IT IS NOT A COPY OF THE [employer] PROGRESS NOTE. TERESA
== END ==
LOC: M PAIN 08:30
PROVIDERS: ATTEND Anesthesiology
DX: G89.29 Other chronic pain (principal); M79.18 Myalgia, other site; I10 Essential (primary) hypertension; E11.9 Type 2 diabetes mellitus without complications; Z79.82 Long term (current) use of aspirin; Z79.891 Long term (current) use of opiate analgesic; Z79.899 Other long term (current) drug therapy
CPT/HCPCS: 20552; J3301

== ENCOUNTER → 2019-08-19 | Outpatient (CLI) | payer OTHER ==
[~2019-08-19] MED LIST changes: -BISO5TAB14 PO; +BISO5TAB9 PO; -BUPIVACAINE HCL 0.25% 10 ML VIAL As Ordered ONE; -BUPIVACAINE HCL 0.25% 30 ML VIAL As Ordered ONE; -TRIAMCINOLONE ACETONIDE SUSP 40 MG/ML VIAL (J3301) As Ordered ONE
--- NOTE | 2019-09-02 01:13 | ECWPNPC ---
PATIENT NAME: HAI DAIGLE : 1965 GENDER: MALE VISIT DATE: 08/19/2019 DISCHARGE DATE: 08/19/19 0950 VISIT LOCKED DATE TIME: PHYSICIAN: BRITT LANCASTER RESOURCE: BRITT LANCASTER REASON FOR APPOINTMENT 1. POST TPI HISTORY OF PRESENT ILLNESS HISTORY OF PRESENT ILLNESS: HERE FOR POST PROCEDURE F/U.HAD TPI BILAT. MID SCAPULAR/THORACIC ON 07/01/19.REPORTING RESOLUTION IN UPPER BACK PAIN. CHIEF AREA OF PAIN IS NECK L>R.RATING PAIN VAS 5/10.FOLLOWS WITH DR VEGA AND HAS EPISODES OF COMPLEX MIGRAINE THAT PRESENT WITH LEFT SIDED WEAKNESS/PARALYSIS AND SEVERE HEADACHE.HISTORY OF GUILLANE BARRE APPROXIMATLEY 5 YEARS AGO. PAIN THE PATIENT DESCRIBES THE PAIN... THE PATIENT DESCRIBES THE PAIN... FALL RISK SCREENING: SCREENING :NO FALLS REPORTED IN THE LAST YEAR CURRENT MEDICATIONS TAKING AMLODIPINE BESYLATE 2.5 MG TABLET 1 TABLET ORALLY ONCE A DAY TAKING ASPIR-81 81 MG TABLET DELAYED RELEASE 1 TABLET ORALLY EVERY OTHER DAY TAKING CITRACAL PLUS 400MG TABLET 2 TABS ORALLY AT BEDTIME TAKING FLECAINIDE ACETATE 50 MG TABLET 1 TABLET ORALLY EVERY 12 HRS TAKING VITAMIN D3 MAXIMUM STRENGTH 5000 UNIT CAPSULE 1 CAPSULE ORALLY DAILY TAKING VITAMIN B-12 500 MCG TABLET 1 TABLET ORALLY ONCE A DAY TAKING TRULICITY 0.75 MG/0.5ML SOLUTION PEN-INJECTOR SUBCUTANEOUS WEEKLY, NOTES: 06/26/19 TAKING PRILOSEC 40 MG CAPSULE DELAYED RELEASE 1 CAPSULE ORALLY ONCE A DAY TAKING POTASSIUM BICARB & CHLORIDE 20 MEQ PACKET 2 TABS ORALLY TWICE A DAY TAKING METFORMIN HCL 1000 MG TABLET 1 TABLET WITH MEALS ORALLY TWICE DAILY, NOTES: 06/30/19 2000 TAKING PROBIOTIC 1 CAPSULE 1 CAP ORALLY DAILY TAKING MAGNESIUM 400 MG CAPSULE 1 CAP ORALLY BID TAKING BISOPROLOL FUMARATE 5 MG TABLET 1 TABLET ORALLY ONCE A DAY TAKING LIPITOR 10 MG TABLET 1 TABLET ORALLY ONCE A DAY TAKING MULTI FOR HIM TABLET 2 TABS ORALLY DAILY TAKING JARDIANCE 10 MG TABLET 1 TABLET ONCE A DAY, NOTES: 06/30/19 0500 TAKING TAMSULOSIN HCL 0.4 MG CAPSULE 1 CAPSULE ONCE A DAY TAKING ZOFRAN 8 MG TABLET 1 TABLET ORALLY Q 8 HOURS NEEDED TAKING LOSARTAN POTASSIUM 25 MG TABLET 1 TABLET ORALLY ONCE A DAY TAKING SPIRONOLACTONE 25 MG TABLET 1 TABLET ORALLY ONCE A DAY TAKING TOPIRAMATE 50 MG TABLET 1 TABLET ORALLY BEFORE BEDTIME TAKING COLCRYS 0.6 MG TABLET 1 TABLET PRN ORALLY ONCE A DAY TAKING CYMBALTA 60 MG CAPSULE DELAYED RELEASE PARTICLES 1 CAPSULE ORALLY BEFORE BEDTIME TAKING TIZANIDINE HCL 2 MG TABLET 1 TABLET NEEDED ORALLY EVERY 8 HRS TAKING GABAPENTIN 300 MG CAPSULE 1 CAPSULE ORALLY BEFORE BEDTIME TAKING DICYCLOMINE HCL 20 MG TABLET 1 TABLET NEEDED ORALLY QID TAKING COLESTIPOL HCL 1 GM TABLET 1 TABLET NEEDED ORALLY TID TAKING MELATONIN 5 MG TABLET 1 TABLET AT BEDTIME NEEDED WITH FOOD ORALLY ONCE A DAY TAKING PERCOCET 5-325 MG TABLET 1 TABLET NEEDED ORALLY EVERY 6 HRS MDD4 TAKING SOMA 350 MG TABLET 1 TABLET NEEDED ORALLY FOR SPASMS AND PAIN EVERY 12 HOURS NEEDED MDD2 NOT-TAKING PERCOCET 5-325 MG TABLET 1 TO 2 TAB ORALLY Q6H PRN MDD 4, NOTES: DUPLICATE NOT-TAKING ENTOCORT EC 3 MG CAPSULE DELAYED RELEASE PARTICLES DIRECTED ORALLY , NOTES: 2 WEEKS MEDICATION LIST REVIEWED AND RECONCILED WITH THE PATIENT PAST MEDICAL HISTORY DIABETES MIGRAINES PAF - INTERMITTENT A-FIB HTN GERD HIGH CHOLESTEROL GUILLAIN BARRE PNEUMONIA ILIEITIS GOUT A FIB WITH RVR DIVERTICULITIS BPH ED ILEITIS BROKEN LEFT RING FINGER MULTIPLY GI PROBLEMS CHRON'S ALLERGIES N.K.D.A. SURGICAL HISTORY BOWEL RESECTION 2013 RIGHT KNEE ARTHROSCOPY 2013 GASTRIC BYPASS RIGHT INGUINAL HERNIA REPAIR 06/24/18 CHOLECYSTECTOMY 11/2018 FAMILY HISTORY FATHER: , DIAGNOSED WITH DIABETES, OTHER MALIGNANT NEOPLASM OF UNSPECIFIED SITE MOTHER: , OTHER SPECIFIED CONDITIONS INFLUENCING HEALTH STATUS, DIABETES, HYPERTENSION SIBLINGS: ALIVE 4 BROTHER(S) , 2 SISTER(S) . 1 SON(S) , 1 DAUGHTER(S) - HEALTHY. 1 SISTER . 1 SISTER HAS ALOT OF MEDICAL ISSUES ALSO. SOCIAL HISTORY GENERAL: TOBACCO USE ARE YOU A:NONSMOKER OTHERS AT HOME: SPOUSE. EDUCATION LEVEL OF EDUCATION:FINISHED HIGH SCHOOL DIET: REGULAR. LANGUAGE LANGUAGES SPOKEN:UKRAINIAN DOMESTIC VIOLENCE DO YOU FEEL SAFE IN YOUR ENVIRONMENT?YES RECREATIONAL DRUG USE DRUG USE?NO EXERCISE: WALKS. LEARNING BARRIERS / SPECIAL NEEDS CHANGE FROM LAST VISIT?NO BARRIERS TO LEARNING?NO HEARING IMPAIRED?NO VISION IMPAIRED?YES COGNITIVELY IMPAIRED?NO :CORRECTIVE LENSES READINESS TO LEARN?YES LEARNING PREFERENCES?NO LEARNING CAPABILITIES PRESENT?YES EMOTIONAL BARRIERS?NO SPECIAL DEVICES?NO BLOOD BANK ORDER CONTROL CLERK NEEDED?NO PAIN CLINIC PFS, CLERGY, PUBLIC HEALTH REFERRALS PFS REFERRAL NEEDED?NO CLERGY REFERRAL NEEDED?NO PUBLIC HEALTH REFERRAL NEEDED?NO WAS THE PROVIDER NOTIFIED OF ANY PERTINENT INFO? N/A HAS THE PATIENT BEEN EDUCATED REGARDING HIS/HER PLAN OF CARE?YES HAS THE PATIENT BEEN EDUCATED REGARDING PAIN, THE RISK FOR PAIN, THE IMPORTANCE OF EFFECTIVE PAIN MANAGEMENT, AND THE PAIN ASSESSMENT PROCESS?YES LATEX QUESTIONNAIRE LATEX ALLERGY : HAVE YOU EVER DEVELOPED ANY TYPE OF REACTION AFTER HANDLING LATEX PRODUCTS SUCH RUBBER GLOVES, CONDOMS, DIAPHRAGMS, BALLOONS, SOCKS, OR UNDERWEAR?NO LATEX ALLERGY : HAVE YOU EVER DEVELOPED ANY TYPE OF REACTION DURING OR AFTER DENTAL APPOINTMENT, VAGINAL/RECTAL EXAMINATION, SURGICAL PROCEDURE, OR ANY OTHER EXPOSURE?NO DATE ASKED : 05/26/2019 LATEX RISK : HAVE YOU EVER HAD ANY DIFFICULTY BREATHING OR HIVES AFTER EATING OR HANDLING ANY FRUITS, OR VEGETABLES; SUCH KIWI, BANANAS, STONE FRUITS, OR CHESTNUTSNO LATEX RISK : DO YOU HAVE A PREVIOUS PERSONAL HISTORY OF MORE THAN NINE SURGERIES, SPINA BIFIDA, OR REPEATED CATHERIZATIONS? NO LATEX RISK : ARE YOU FREQUENTLY EXPOSED TO LATEX PRODUCTS IN YOUR OCCUPATION?NO CAFFEINE CAFFEINE USE?YES 1-2 SODA/DAY ADVANCE DIRECTIVE ADVANCE DIRECTIVE DISCUSSED WITH PATIENT:YES HCP ON FILE , AUDREY [phone] MANDAEISM [id number] OTHER MARITAL STATUS: . 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 SEXUAL HX HAD SEX IN THE LAST 12 MONTHS (VAGINAL, ORAL, OR ANAL)?NO HAVE YOU EVER HAD AN STD?NO 12/01/18 REVIEWED WITH PT. RORO WITH PATIENT 03/01/19 1406 JSREVIEWED WITH PATIENT 06/14/19 0910 LASREVIEWED WITH PATIENT 07/01/19 0908 JS. HOSPITALIZATION/MAJOR DIAGNOSTIC PROCEDURE SURGERY RELATED GUILLAIN BARRE REQUIRING PLASMAPHERESIS, IVIG, STEROIDS AND INTUBATION [facility] 09/2015 PNEUMONIA, ILEITIS 02/2018 REVIEW OF SYSTEMS REVIEWED BY: PROVIDER: BRITT RESENDIZ . CONSTITUTIONAL: ANY CHANGE IN YOUR MEDICAL CONDITION? NO . CHILLS NO . FEVER NO . INFECTION: DO YOU HAVE NEW INFECTIONS? NO . DO YOU HAVE HISTORY OF MRSA? NO . MUSCULOSKELETAL: ANY NEW PATTERNS OF PAIN OR NUMBNESS? YES- STATES THAT THE THORACIC TRIGGE RPOINT INJECTIONS WORKED GREAT AND CONTINUES TO FEEL RELIEF, STATES THAT HE WOULD LIKE TPI IN BILATERAL NEK AND SHOULDERS . GASTROENTEROLOGY: ANY NEW CHANGE IN BOWEL CONTROL? NO . GENITOURINARY: ANY NEW CHANGE IN BLADDER CONTROL? NO . IS THERE A CHANCE YOU COULD BE ? NO . HEMATOLOGY/LYMPH: DO YOU TAKE ANY BLOOD THINNERS? (FOR EXAMPLE- COUMADIN, PLAVIX, AGGRENOX, PLATEL, PRADAXA, OR XARELTO) NO . WHEN WAS YOUR LAST DOSE? DATE: TIME: . NEUROLOGY: HAVE YOU FALLEN IN THE PAST 12 MONTHS? NO- NO FALLS SINCE LAST VISIT . ANY NEW EXTREMITY NUMBNESS OR WEAKNESS? NO . CARDIOLOGY: DO YOU HAVE A PACEMAKER OR DEFIBRILLATOR? NO . RESPIRATORY: HAVE YOU BEEN SICK IN THE PAST WEEK? NO . FEVER NO . FLU LIKE SYMPTOMS? NO . COUGH NO . INTEGUMENTARY: DO YOU HAVE ANY RASHES OR OPEN SORES? NO . ALLERGIC/IMMUNO: ARE YOU ALLERGIC TO IV DYE? NO . ANY NEW ALLERGIES? NO . PSYCHIATRIC: DO YOU HAVE THOUGHTS OF HURTING YOURSELF OR SOMEONE ELSE? NO . ARE YOU ABUSED, NEGLECTED, OR IN AN UNSAFE ENVIRONMENT? NO . ENDOCRINOLOGY: ARE YOU DIABETIC? YES . OTHER: DO YOU NEED ANY PRESCRIPTIONS? YES . IF YES, PLEASE LIST: ____OXYCODONE, SOMA . ANY NEW PROBLEMS WITH YOUR MEDICATIONS? NO . WHEN DID YOU LAST EAT? ____ . WHEN DID YOU LAST DRINK? ____ . WHAT DID YOU LAST DRINK? ____ . NAME OF PERSON DRIVING YOU HOME? ____ . DO YOU HAVE ANY OTHER QUESTIONS OR CONCERNS NO . VITAL SIGNS WT 182.2 LBS, HT 70 IN, BMI 26.14 INDEX, BP 152/85 MM HG, HR 80 /MIN, RR 18 /MIN, TEMP 96.8 F, OXYGEN SAT % 99%, SAFE IN ENV? (Y/N) YES, NA INITIALS [place] 08:56, REVIEWED BY: SANCHO. EXAMINATION GENERAL EXAMINATION: LUNGS:LUNG SOUNDS ARE CLEAR . HEART:HEART RATE REGULAR . MUSCULOSKELETAL:*, MUSCLE STRENGTH TESTING 5/5 BILATERAL UPPER EXTREMITIES. . CERVICAL+ FOR PAIN WITH PALPATION OF CERVICAL SPINE. + FOR PAIN WITH PALPATION OF CERVICAL PARASPINALS.SPECIFIC POINT TENDERNESS NOTED OV C4/5-/C5/6 CERVICAL FACETS WITH EXTENSION AND FACET LOADING. . DIAGNOSTIC TESTS REVIEWEDCERVICAL MRI -10/24/15. ASSESSMENTS CERVICAL SPONDYLOSIS - M47.812 (PRIMARY) TREATMENT CERVICAL SPONDYLOSIS REFILL PERCOCET TABLET, 5-325 MG, 1 TABLET NEEDED, ORALLY, EVERY 6 HRS MDD4, 30 DAYS, 120, REFILLS 0 REFILL SOMA TABLET, 350 MG, 1 TABLET NEEDED, ORALLY FOR SPASMS AND PAIN, EVERY 12 HOURS NEEDED MDD2, 30 DAYS, 60, REFILLS 5 NOTES: BILAT. C3/4-C4/5 CFBT, ISTOP REGISTRY REVIEWED AND DEMONSTRATES COMPLLIANCE. BRINGS IN MEDICATIONS WHICH IS APPROPRIATE FOR WHAT WAS DISPENSED. RECENT URINE TOXICOLOGY REVIEWED. NO UNAUTHORIZED MEDICATIONS. NO ILLICIT SUBSTANCES AND PRESCRIBED MEDICATIONS WERE PRESENT. URINE TOX TODAY, RISKS OF NARCOTIC/OPIOD MEDICATIONS INCLUDES BUT IS NOT LIMITED TO RISK OF DEPENDANCE/DEVELOPMENT OF ADDICTION, MOOD DISTURBANCE AND DEPRESSION, OSTEOPOROSIS, HORMONAL AND LABIDAL CHANGES, RESPIRATORY DEPRESSION AND . PATIENT IS ADVISED NOT TO DRIVE OR DRINK ALCOHOL WHILE ON THESE MEDICATIONS. PREVENTIVE MEDICINE PAIN CLINIC TEACHING: PROCEDURE TEACHING CERVICAL FACET TEACHING PRNTED AND REIEWED WITH PATIENT 08/19/19 0948 [facility]. PROCEDURE CODES FA211 ESTABILISHED PATIENT [facility] FACILITY CHARGE DISPOSITION & COMMUNICATION FOLLOW UP POST (REASON: BILAT. C3/4-C4/5 CFBT) ELECTRONICALLY SIGNED BY MARTÍN GOLDBERG ON 09/01/2019 AT 02:38 PM EDT DISCLAIMER : THIS IS A VISIT SUMMARY EXTRACTED FROM THE [employer] CHART. IT IS NOT A COPY OF THE [employer] PROGRESS NOTE. TERESA
== END ==
LOC: M PAIN 08:45
PROVIDERS: ATTEND Nurse Practitioner Family
DX: M47.812 Spondylosis without myelopathy or radiculopathy, cervical region (principal); E11.9 Type 2 diabetes mellitus without complications; G43.909 Migraine, unspecified, not intractable, without status migrainosus; I10 Essential (primary) hypertension; K21.9 Gastro-esophageal reflux disease without esophagitis; Z98.84 Bariatric surgery status; Z79.82 Long term (current) use of aspirin; Z79.84 Long term (current) use of oral hypoglycemic drugs; Z79.899 Other long term (current) drug therapy

== ENCOUNTER → 2019-10-14 | Outpatient (REF) | payer OTHER | LOC: M LAB REF 11:13 | PROVIDERS: ATTEND Internal Medicine | DX: K50.00 Crohn's disease of small intestine without complications (principal); R19.7 Diarrhea, unspecified ==

== ENCOUNTER → 2019-11-04 | Outpatient (REF) | payer OTHER | LOC: M LAB REF 12:17 | PROVIDERS: ATTEND Specialist | DX: R19.7 Diarrhea, unspecified (principal) ==

== ENCOUNTER → 2019-11-18 | Outpatient (CLI) | payer OTHER ==
[~2019-11-18] MED LIST changes: +BISO5TAB14 PO; -BISO5TAB9 PO; +BUPIVACAINE HCL 0.25% 30 ML VIAL As Ordered ONE; +ISOVUE-M 300 61% 15ML VIAL (Q9967) As Ordered ONE; +LIDOCAINE 1% SDV INJ 30 ML VIAL As Ordered ONE; +TRIAMCINOLONE ACETONIDE SUSP 40 MG/ML VIAL (J3301) As Ordered ONE; +diazePAM 5 MG TAB As Ordered ONE; +oxyCODONE 5MG TAB As Ordered ONE
--- NOTE | 2019-11-18 12:36 | REP ---
Limited cervical spine single view. History: Bilateral cervical facet injection for pain. 12 seconds of fluoroscopy time is reported. Findings: A single last image hold fluoroscopically obtained spot radiograph of the cervical spine documents various needle positions and contrast injections for injection procedure. Electronically Signed by Nick Stanley MD 11/18/2019 12:27 P
--- NOTE | 2019-11-25 00:53 | ECWPNPC ---
PATIENT NAME: HAI DAIGLE : 1965 GENDER: MALE VISIT DATE: 11/18/2019 DISCHARGE DATE: 11/18/19 1042 VISIT LOCKED DATE TIME: PHYSICIAN: BONY ANTOINE MD RESOURCE: BONY ANTOINE MD REASON FOR APPOINTMENT 1. BILAT. C3/4-C4/5 CFBT CURRENT MEDICATIONS TAKING AMLODIPINE BESYLATE 2.5 MG TABLET 1 TABLET ORALLY ONCE A DAY, NOTES: 11/18/19299 TAKING ASPIR-81 81 MG TABLET DELAYED RELEASE 1 TABLET ORALLY EVERY OTHER DAY, NOTES: 11/17/19399 TAKING CITRACAL PLUS 400MG TABLET 2 TABS ORALLY AT BEDTIME, NOTES: 11/18/19399 TAKING FLECAINIDE ACETATE 50 MG TABLET 1 TABLET ORALLY EVERY 12 HRS, NOTES: 11/18/19399 TAKING VITAMIN D3 MAXIMUM STRENGTH 5000 UNIT CAPSULE 1 CAPSULE ORALLY DAILY, NOTES: 11/18/19399 TAKING VITAMIN B-12 500 MCG TABLET 1 TABLET ORALLY ONCE A DAY, NOTES: 11/18/19399 TAKING TRULICITY 0.75 MG/0.5ML SOLUTION PEN-INJECTOR SUBCUTANEOUS WEEKLY, NOTES: 11/13/19899 TAKING PRILOSEC 40 MG CAPSULE DELAYED RELEASE 1 CAPSULE ORALLY ONCE A DAY, NOTES: 11/18/19299 TAKING POTASSIUM BICARB & CHLORIDE 20 MEQ PACKET 2 TABS ORALLY TWICE A DAY, NOTES: 11/18/19299 TAKING METFORMIN HCL 1000 MG TABLET 1 TABLET WITH MEALS ORALLY TWICE DAILY, NOTES: 11/17/19 PM TAKING PROBIOTIC 1 CAPSULE 1 CAP ORALLY DAILY, NOTES: 11/18/19299 TAKING MAGNESIUM 400 MG CAPSULE 1 CAP ORALLY BID, NOTES: 11/18/19299 TAKING BISOPROLOL FUMARATE 5 MG TABLET 1 TABLET ORALLY ONCE A DAY, NOTES: 11/18/19299 TAKING LIPITOR 10 MG TABLET 1 TABLET ORALLY ONCE A DAY, NOTES: 11/18/19299 TAKING MULTI FOR HIM TABLET 2 TABS ORALLY DAILY, NOTES: 11/18/19299 TAKING TAMSULOSIN HCL 0.4 MG CAPSULE 1 CAPSULE ONCE A DAY, NOTES: 11/18/19299 TAKING ZOFRAN 8 MG TABLET 1 TABLET ORALLY Q 8 HOURS NEEDED, NOTES: A COUPLE OF DAYS AGO TAKING LOSARTAN POTASSIUM 25 MG TABLET 1 TABLET ORALLY ONCE A DAY, NOTES: 11/18/19299 TAKING SPIRONOLACTONE 25 MG TABLET 1 TABLET ORALLY ONCE A DAY, NOTES: 11/18/19299 TAKING TOPIRAMATE 50 MG TABLET 1 TABLET ORALLY BEFORE BEDTIME, NOTES: 11/17/192099 TAKING COLCRYS 0.6 MG TABLET 1 TABLET PRN ORALLY ONCE A DAY, NOTES: 11/18/19299 TAKING CYMBALTA 60 MG CAPSULE DELAYED RELEASE PARTICLES 1 CAPSULE ORALLY BEFORE BEDTIME, NOTES: 11/18/19299 TAKING TIZANIDINE HCL 2 MG TABLET 1 TABLET NEEDED ORALLY EVERY 8 HRS, NOTES: 11/17/192099 TAKING GABAPENTIN 300 MG CAPSULE 1 CAPSULE ORALLY BEFORE BEDTIME, NOTES: 11/18/19299 TAKING DICYCLOMINE HCL 20 MG TABLET 1 TABLET NEEDED ORALLY QID, NOTES: 11/17/192099 TAKING COLESTIPOL HCL 1 GM TABLET 1 TABLET NEEDED ORALLY TID, NOTES: NON LATELY TAKING MELATONIN 5 MG TABLET 1 TABLET AT BEDTIME NEEDED WITH FOOD ORALLY ONCE A DAY, NOTES: 11/17/192099 TAKING SOMA 350 MG TABLET 1 TABLET NEEDED ORALLY FOR SPASMS AND PAIN EVERY 12 HOURS NEEDED MDD2, NOTES: A COUPLE OF DAYS AGO TAKING PERCOCET 5-325 MG TABLET 1 TABLET NEEDED ORALLY EVERY 6 HRS MDD4, NOTES: A COUPLE DAYS AGO NOT-TAKING JARDIANCE 10 MG TABLET 1 TABLET ONCE A DAY, NOTES: 06/30/19 0500 NOT-TAKING PERCOCET 5-325 MG TABLET 1 TO 2 TAB ORALLY Q6H PRN MDD 4, NOTES: DUPLICATE NOT-TAKING ENTOCORT EC 3 MG CAPSULE DELAYED RELEASE PARTICLES DIRECTED ORALLY , NOTES: 2 WEEKS MEDICATION LIST REVIEWED AND RECONCILED WITH THE PATIENT PAST MEDICAL HISTORY DIABETES MIGRAINES PAF - INTERMITTENT A-FIB HTN GERD HIGH CHOLESTEROL GUILLAIN BARRE PNEUMONIA ILIEITIS A FIB WITH RVR DIVERTICULITIS BPH ED MULTIPLY GI PROBLEMS CHRON'S ALLERGIES N.K.D.A. SURGICAL HISTORY BOWEL RESECTION 2013 RIGHT KNEE ARTHROSCOPY, LEFT ALSO DONE YEARS LATER 2013 GASTRIC BYPASS RIGHT INGUINAL HERNIA REPAIR 06/24/18 CHOLECYSTECTOMY 11/2018 FAMILY HISTORY FATHER: , DIAGNOSED WITH DIABETES, OTHER MALIGNANT NEOPLASM OF UNSPECIFIED SITE MOTHER: , HYPERTENSION, OTHER SPECIFIED CONDITIONS INFLUENCING HEALTH STATUS, DIABETES SIBLINGS: ALIVE 4 BROTHER(S) , 2 SISTER(S) . 1 SON(S) , 1 DAUGHTER(S) - HEALTHY. 1 SISTER . 1 SISTER HAS ALOT OF MEDICAL ISSUES ALSO. SOCIAL HISTORY GENERAL: TOBACCO USE ARE YOU A:NONSMOKER OTHERS AT HOME: SPOUSE. EDUCATION LEVEL OF EDUCATION:FINISHED HIGH SCHOOL DIET: REGULAR. LANGUAGE LANGUAGES SPOKEN:[place] DOMESTIC VIOLENCE DO YOU FEEL SAFE IN YOUR ENVIRONMENT?YES RECREATIONAL DRUG USE DRUG USE?NO EXERCISE: WALKS. LEARNING BARRIERS / SPECIAL NEEDS CHANGE FROM LAST VISIT?NO BARRIERS TO LEARNING?NO HEARING IMPAIRED?NO VISION IMPAIRED?YES COGNITIVELY IMPAIRED?NO :CORRECTIVE LENSES READINESS TO LEARN?YES LEARNING PREFERENCES?NO LEARNING CAPABILITIES PRESENT?YES EMOTIONAL BARRIERS?NO SPECIAL DEVICES?NO SQUILGEER NEEDED?NO PAIN CLINIC PFS, CLERGY, PUBLIC HEALTH REFERRALS PFS REFERRAL NEEDED?NO CLERGY REFERRAL NEEDED?NO PUBLIC HEALTH REFERRAL NEEDED?NO WAS THE PROVIDER NOTIFIED OF ANY PERTINENT INFO? N/A HAS THE PATIENT BEEN EDUCATED REGARDING HIS/HER PLAN OF CARE?YES HAS THE PATIENT BEEN EDUCATED REGARDING PAIN, THE RISK FOR PAIN, THE IMPORTANCE OF EFFECTIVE PAIN MANAGEMENT, AND THE PAIN ASSESSMENT PROCESS?YES LATEX QUESTIONNAIRE LATEX ALLERGY : HAVE YOU EVER DEVELOPED ANY TYPE OF REACTION AFTER HANDLING LATEX PRODUCTS SUCH RUBBER GLOVES, CONDOMS, DIAPHRAGMS, BALLOONS, SOCKS, OR UNDERWEAR?NO LATEX ALLERGY : HAVE YOU EVER DEVELOPED ANY TYPE OF REACTION DURING OR AFTER DENTAL APPOINTMENT, VAGINAL/RECTAL EXAMINATION, SURGICAL PROCEDURE, OR ANY OTHER EXPOSURE?NO DATE ASKED : 05/26/2019 LATEX RISK : HAVE YOU EVER HAD ANY DIFFICULTY BREATHING OR HIVES AFTER EATING OR HANDLING ANY FRUITS, OR VEGETABLES; SUCH KIWI, BANANAS, STONE FRUITS, OR CHESTNUTSNO LATEX RISK : DO YOU HAVE A PREVIOUS PERSONAL HISTORY OF MORE THAN NINE SURGERIES, SPINA BIFIDA, OR REPEATED CATHERIZATIONS? NO LATEX RISK : ARE YOU FREQUENTLY EXPOSED TO LATEX PRODUCTS IN YOUR OCCUPATION?NO CAFFEINE CAFFEINE USE?YES 1-2 SODA/DAY ADVANCE DIRECTIVE ADVANCE DIRECTIVE DISCUSSED WITH PATIENT:YES HCP ON FILE , AUDREY [phone] MORMON [id number] OTHER MARITAL STATUS: . 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 SEXUAL HX HAD SEX IN THE LAST 12 MONTHS (VAGINAL, ORAL, OR ANAL)?NO HAVE YOU EVER HAD AN STD?NO 12/01/18 REVIEWED WITH PT. ADREVIEWED WITH PATIENT 03/01/19 1406 JSREVIEWED WITH PATIENT 06/14/19 0910 LASREVIEWED WITH PATIENT 07/01/19 0908 JSPRE PROCEDURE PHONE CALL COMPLETED 11/16/19 SANCHO 1703. HOSPITALIZATION/MAJOR DIAGNOSTIC PROCEDURE SURGERY RELATED GUILLAIN BARRE REQUIRING PLASMAPHERESIS, IVIG, [facility]IDS [facility] 09/2015 PNEUMONIA, ILEITIS 02/2018 VITAL SIGNS WT 175.2 LBS, HT 70 IN, BMI 25.14 INDEX, BP 155/90 MM HG, HR 81 /MIN, RR 18 /MIN, TEMP 96.3 F, OXYGEN SAT % 99%, SAFE IN ENV? (Y/N) YES, NA INITIALS [place] 09:02, REVIEWED BY: SANCHO. ASSESSMENTS CERVICAL SPONDYLOSIS - M47.812 (PRIMARY) TREATMENT CERVICAL SPONDYLOSIS [facility] FACET BLOCK (PAIN)[id number] PROCEDURES PN CERVICAL FACET BLOCK LOW BILATERAL CERVICAL PRE PROCEDURE DIAGNOSIS CERVICAL SPONDYLOSIS POST PROCEDURE DIAGNOSIS CERVICAL SPONDYLOSIS PROCEDURE BILATERAL C3-C4 AND C4-C5 CERVICAL FACET BLOCK SURGEON DR. BONY ANTOINE DRIVER NONE ANESTHESIA LOCAL PRE PROCEDURE NOTE THE PATIENT HAS HISTORY OF CHRONIC CERVICAL PAIN. I EVALUATED THE PATIENT AND REVIEWED THE CHART. I WENT OVER THE RISKS, ALTERNATIVES, AND BENEFITS ASSOCIATED WITH THIS PROCEDURE. THE PATIENT WOULD LIKE TO PROCEED AND GIVES CONSENT TO PERFORM THE PROCEDURE. THE PATIENT DENIES UNEXPLAINABLE WEIGHT LOSS, FEVER, CHILLS, OR NEW CHANGES IN URINARY OR BOWEL CONTROL DESCRIPTION OF PROCEDURE THE PATIENT WAS BROUGHT TO THE PROCEDURE ROOM AND PLACED IN THE PRONE POSITION. THE CERVICOTHORACIC AREA WAS CLEANED WITH CHLORAPREP SOLUTION AND DRAPED ASEPTICALLY. THE PROCEDURE WAS DONE UNDER STERILE CONDITIONS. I CHECKED LATERALITY AND THE LEVEL WHERE THE PROCEDURE WAS GOING TO BE PERFORMED WITH THE PATIENT AND THE SUPPORTING STAFF AT THE MOMENT OF THE TIME OUT IN THE PROCEDURE ROOM. UNDER FLUOROSCOPIC GUIDANCE, TARGET POINT WAS SELECTED AT THE RIGHT AND LEFT C3-C4 AND RIGHT AND LEFT C4-C5 CERVICAL FACET JOINTS. TARGET POINTS WERE SELECTED AFTER LATERAL ROTATION AND TILT OF THE MAGNIFIER OF THE C-ARM. LIDOCAINE 0.5% WAS USED TO NUMB THE SKIN AND THE SUBCUTANEOUS TISSUE BELOW IT. SPINAL NEEDLES, 22-GAUGE, WERE ADVANCED UNDER FLUOROSCOPIC GUIDANCE AND FOLLOWING PATIENT FEEDBACK UNTIL THE TARGETS WERE TOUCHED. THE POSITION OF THE NEEDLES WAS VERIFIED WITH AP AND LATERAL VIEWS. AFTER PROPER POSITION OF THE NEEDLES WAS ACHIEVED, ISOVUE M DYE 30, 0.1 ML WAS INJECTED SHOWING SPREAD OF THE DYE. THEN A SOLUTION OF 0.9 ML OF BUPIVACAINE 0.125% AND KENALOG 10 MG WAS INJECTED AT EACH SITE. THERE WAS NO EVIDENCE OF BLOOD, PARESTHESIA OR CEREBROSPINAL FLUID DURING THE PROCEDURE. THE PATIENT WAS SENT TO THE RECOVERY ROOM. THE PATIENT WAS MOVING THE EXTREMITIES AND DOING WELL. THERE WAS NO COMPLICATION DURING THE PROCEDURE. FLUOROSCOPY TIME WAS 12 SECONDS POST PROCEDURE NOTE THE PATIENT WILL BE SEEN IN A FOLLOW UP IN THE NEXT FEW WEEKS. I AM LOOKING FOR LONG-LASTING PAIN RELIEF WITH THIS PROCEDURE. INSTRUCTIONS WERE GIVEN, QUESTIONS WERE ANSWERED, AND THE PATIENT EXPRESSED UNDERSTANDING AND AGREES WITH THE PLAN. I, GWYN SHAH, DOCUMENTED THE ABOVE INFORMATION ACTING A SCRIBE FOR DR. ANTOINE. I HAVE REVIEWED THE ABOVE DOCUMENT, WRITTEN BY FLORESITA LOWERY, AND I VERIFY THAT IT IS ACCURATE PROCEDURE CODES 95481 INJ PARAVERT F JNT C/T 1 LEV, MODIFIERS: 50 20270 INJ PARAVERT F JNT C/T 2 LEV, MODIFIERS: 50 6045F RADXPS IN END [id number] PXD DISPOSITION & COMMUNICATION FOLLOW UP 3 WEEKS ELECTRONICALLY SIGNED BY BONY ANTOINE MD, ON 11/24/2019 AT 12:40 PM EST DISCLAIMER : THIS IS A VISIT SUMMARY EXTRACTED FROM THE [employer] CHART. IT IS NOT A COPY OF THE [employer] PROGRESS NOTE. MTDD
== END ==
LOC: M PAIN 08:45
PROVIDERS: ATTEND Anesthesiology
DX: M47.812 Spondylosis without myelopathy or radiculopathy, cervical region (principal); E11.9 Type 2 diabetes mellitus without complications; G43.909 Migraine, unspecified, not intractable, without status migrainosus; I10 Essential (primary) hypertension; K21.9 Gastro-esophageal reflux disease without esophagitis; Z98.84 Bariatric surgery status; Z79.82 Long term (current) use of aspirin; Z79.84 Long term (current) use of oral hypoglycemic drugs; Z79.899 Other long term (current) drug therapy
CPT/HCPCS: 64490; 64491; J3301; Q9967

== ENCOUNTER → 2019-12-02 | Outpatient (CLI) | payer OTHER ==
[~2019-12-02] MED LIST changes: -BUPIVACAINE HCL 0.25% 30 ML VIAL As Ordered ONE; -ISOVUE-M 300 61% 15ML VIAL (Q9967) As Ordered ONE; -LIDOCAINE 1% SDV INJ 30 ML VIAL As Ordered ONE; -TRIAMCINOLONE ACETONIDE SUSP 40 MG/ML VIAL (J3301) As Ordered ONE; -diazePAM 5 MG TAB As Ordered ONE; -oxyCODONE 5MG TAB As Ordered ONE
--- NOTE | 2019-12-21 03:54 | ECWPNPC ---
PATIENT NAME: HAI DAIGLE : 1965 GENDER: MALE VISIT DATE: 12/02/2019 DISCHARGE DATE: 12/02/19 1137 VISIT LOCKED DATE TIME: PHYSICIAN: BRITT LANCASTER RESOURCE: BRITT LANCASTER REASON FOR APPOINTMENT 1. POST PROC HISTORY OF PRESENT ILLNESS HISTORY OF PRESENT ILLNESS: HERE FOR POST PROCEDURE F/U.HAD BILAT. CFBT ON 11/18/2019.REPORTING RESOLUTION IN UPPER BACK PAIN. CHIEF AREA OF PAIN IS LEFT LOWER CERVICAL PARASPINAL/FACET REGION. RATING PAIN VAS 3-6/10.FOLLOWS WITH DR VEGA AND HAS EPISODES OF COMPLEX MIGRAINE THAT PRESENT WITH LEFT SIDED WEAKNESS/PARALYSIS AND SEVERE HEADACHE.HISTORY OF GUILLANE BARRE APPROXIMATLEY 5 YEARS AGO. PAIN AND LEFT NECK AREA IS AGGRAVATED WITH RANGE OF JOINT MOTION OF THE NECK AND ARM. CONTINUES WITH EPISODES OF LEFT ARM PAIN AND PARESTHESIA. REVIEWED MRI OF THE CERVICAL SPINE DONE LAST YEAR. WE WILL CONSIDER CERVICAL EPIDURAL STEROID INJECTION IF NO IMPROVEMENT OR RESIDUAL PAIN AFTER TRIGGER POINT INJECTIONS. PAIN THE PATIENT DESCRIBES THE PAIN... FALL RISK SCREENING: SCREENING :NO FALLS REPORTED IN THE LAST YEAR CURRENT MEDICATIONS TAKING AMLODIPINE BESYLATE 2.5 MG TABLET 1 TABLET ORALLY ONCE A DAY TAKING ASPIR-81 81 MG TABLET DELAYED RELEASE 1 TABLET ORALLY EVERY OTHER DAY TAKING CITRACAL PLUS 400MG TABLET 2 TABS ORALLY AT BEDTIME TAKING FLECAINIDE ACETATE 50 MG TABLET 1 TABLET ORALLY EVERY 12 HRS TAKING VITAMIN D3 MAXIMUM STRENGTH 5000 UNIT CAPSULE 1 CAPSULE ORALLY DAILY TAKING VITAMIN B-12 500 MCG TABLET 1 TABLET ORALLY ONCE A DAY TAKING TRULICITY 0.75 MG/0.5ML SOLUTION PEN-INJECTOR SUBCUTANEOUS WEEKLY TAKING PRILOSEC 40 MG CAPSULE DELAYED RELEASE 1 CAPSULE ORALLY ONCE A DAY TAKING POTASSIUM BICARB & CHLORIDE 20 MEQ PACKET 2 TABS ORALLY TWICE A DAY TAKING METFORMIN HCL 1000 MG TABLET 1 TABLET WITH MEALS ORALLY TWICE DAILY TAKING PROBIOTIC 1 CAPSULE 1 CAP ORALLY DAILY TAKING MAGNESIUM 400 MG CAPSULE 1 CAP ORALLY BID TAKING BISOPROLOL FUMARATE 5 MG TABLET 1 TABLET ORALLY ONCE A DAY TAKING LIPITOR 10 MG TABLET 1 TABLET ORALLY ONCE A DAY TAKING MULTI FOR HIM TABLET 2 TABS ORALLY DAILY TAKING TAMSULOSIN HCL 0.4 MG CAPSULE 1 CAPSULE ONCE A DAY TAKING ZOFRAN 8 MG TABLET 1 TABLET ORALLY Q 8 HOURS NEEDED TAKING LOSARTAN POTASSIUM 25 MG TABLET 1 TABLET ORALLY ONCE A DAY TAKING SPIRONOLACTONE 25 MG TABLET 1 TABLET ORALLY ONCE A DAY TAKING TOPIRAMATE 50 MG TABLET 1 TABLET ORALLY BEFORE BEDTIME TAKING COLCRYS 0.6 MG TABLET 1 TABLET PRN ORALLY ONCE A DAY TAKING CYMBALTA 60 MG CAPSULE DELAYED RELEASE PARTICLES 1 CAPSULE ORALLY BEFORE BEDTIME TAKING TIZANIDINE HCL 2 MG TABLET 1 TABLET NEEDED ORALLY EVERY 8 HRS TAKING GABAPENTIN 300 MG CAPSULE 1 CAPSULE ORALLY BEFORE BEDTIME TAKING DICYCLOMINE HCL 20 MG TABLET 1 TABLET NEEDED ORALLY QID TAKING COLESTIPOL HCL 1 GM TABLET 1 TABLET NEEDED ORALLY TID TAKING MELATONIN 5 MG TABLET 1 TABLET AT BEDTIME NEEDED WITH FOOD ORALLY ONCE A DAY TAKING SOMA 350 MG TABLET 1 TABLET NEEDED ORALLY FOR SPASMS AND PAIN EVERY 12 HOURS NEEDED MDD2 TAKING PERCOCET 5-325 MG TABLET 1 TABLET NEEDED ORALLY EVERY 6 HRS MDD4 NOT-TAKING JARDIANCE 10 MG TABLET 1 TABLET ONCE A DAY, NOTES: 06/30/19 0500 NOT-TAKING PERCOCET 5-325 MG TABLET 1 TO 2 TAB ORALLY Q6H PRN MDD 4, NOTES: DUPLICATE NOT-TAKING ENTOCORT EC 3 MG CAPSULE DELAYED RELEASE PARTICLES DIRECTED ORALLY , NOTES: 2 WEEKS MEDICATION LIST REVIEWED AND RECONCILED WITH THE PATIENT PAST MEDICAL HISTORY DIABETES MIGRAINES PAF - INTERMITTENT A-FIB HTN GERD HIGH CHOLESTEROL GUILLAIN BARRE PNEUMONIA ILIEITIS A FIB WITH RVR DIVERTICULITIS BPH ED MULTIPLE GI PROBLEMS CHRON'S ALLERGIES N.K.D.A. SURGICAL HISTORY BOWEL RESECTION 2013 RIGHT KNEE ARTHROSCOPY, LEFT ALSO DONE YEARS LATER 2013 GASTRIC BYPASS RIGHT INGUINAL HERNIA REPAIR 06/24/18 CHOLECYSTECTOMY 11/2018 FAMILY HISTORY FATHER: , DIAGNOSED WITH DIABETES, OTHER MALIGNANT NEOPLASM OF UNSPECIFIED SITE MOTHER: , DIABETES, HYPERTENSION, OTHER SPECIFIED CONDITIONS INFLUENCING HEALTH STATUS SIBLINGS: ALIVE 4 BROTHER(S) , 2 SISTER(S) . 1 SON(S) , 1 DAUGHTER(S) - HEALTHY. 1 SISTER . 1 SISTER HAS ALOT OF MEDICAL ISSUES ALSO. SOCIAL HISTORY GENERAL: TOBACCO USE ARE YOU A:NONSMOKER OTHERS AT HOME: SPOUSE. EDUCATION LEVEL OF EDUCATION:FINISHED HIGH SCHOOL DIET: REGULAR. LANGUAGE LANGUAGES SPOKEN:DANISH DOMESTIC VIOLENCE DO YOU FEEL SAFE IN YOUR ENVIRONMENT?YES RECREATIONAL DRUG USE DRUG USE?NO EXERCISE: WALKS. LEARNING BARRIERS / SPECIAL NEEDS CHANGE FROM LAST VISIT?NO BARRIERS TO LEARNING?NO HEARING IMPAIRED?NO VISION IMPAIRED?YES COGNITIVELY IMPAIRED?NO :CORRECTIVE LENSES READINESS TO LEARN?YES LEARNING PREFERENCES?NO LEARNING CAPABILITIES PRESENT?YES EMOTIONAL BARRIERS?NO SPECIAL DEVICES?NO INVENTORY AUDITOR NEEDED?NO PAIN CLINIC PFS, CLERGY, PUBLIC HEALTH REFERRALS PFS REFERRAL NEEDED?NO CLERGY REFERRAL NEEDED?NO PUBLIC HEALTH REFERRAL NEEDED?NO WAS THE PROVIDER NOTIFIED OF ANY PERTINENT INFO? N/A HAS THE PATIENT BEEN EDUCATED REGARDING HIS/HER PLAN OF CARE?YES HAS THE PATIENT BEEN EDUCATED REGARDING PAIN, THE RISK FOR PAIN, THE IMPORTANCE OF EFFECTIVE PAIN MANAGEMENT, AND THE PAIN ASSESSMENT PROCESS?YES LATEX QUESTIONNAIRE LATEX ALLERGY : HAVE YOU EVER DEVELOPED ANY TYPE OF REACTION AFTER HANDLING LATEX PRODUCTS SUCH RUBBER GLOVES, CONDOMS, DIAPHRAGMS, BALLOONS, SOCKS, OR UNDERWEAR?NO LATEX ALLERGY : HAVE YOU EVER DEVELOPED ANY TYPE OF REACTION DURING OR AFTER DENTAL APPOINTMENT, VAGINAL/RECTAL EXAMINATION, SURGICAL PROCEDURE, OR ANY OTHER EXPOSURE?NO LATEX RISK : HAVE YOU EVER HAD ANY DIFFICULTY BREATHING OR HIVES AFTER EATING OR HANDLING ANY FRUITS, OR VEGETABLES; SUCH KIWI, BANANAS, STONE FRUITS, OR CHESTNUTSNO LATEX RISK : DO YOU HAVE A PREVIOUS PERSONAL HISTORY OF MORE THAN NINE SURGERIES, SPINA BIFIDA, OR REPEATED CATHERIZATIONS? NO LATEX RISK : ARE YOU FREQUENTLY EXPOSED TO LATEX PRODUCTS IN YOUR OCCUPATION?NO DATE ASKED : 05/26/2019 CAFFEINE CAFFEINE USE?YES 1-2 SODA/DAY ADVANCE DIRECTIVE ADVANCE DIRECTIVE DISCUSSED WITH PATIENT:YES HCP ON FILE , AUDREY [phone] TAOIST [id number] OTHER MARITAL STATUS: . 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 SEXUAL HX HAD SEX IN THE LAST 12 MONTHS (VAGINAL, ORAL, OR ANAL)?NO HAVE YOU EVER HAD AN STD?NO 12/01/18 REVIEWED WITH PT. ADREVIEWED WITH PATIENT 03/01/19 1406 JSREVIEWED WITH PATIENT 06/14/19 0910 LASREVIEWED WITH PATIENT 07/01/19 0908 JSPRE PROCEDURE PHONE CALL COMPLETED 11/16/19 [facility] 1701REVIEWED WITH PATIENT 12/02/2019 1047 JS. HOSPITALIZATION/MAJOR DIAGNOSTIC PROCEDURE SURGERY RELATED GUILLAIN BARRE REQUIRING PLASMAPHERESIS, IVIG, STEROIDS AND INTUBATION [place] 09/2015 PNEUMONIA, ILEITIS 02/2018 REVIEW OF SYSTEMS REVIEWED BY: PROVIDER: BRITT RESENDIZ . CONSTITUTIONAL: ANY CHANGE IN YOUR MEDICAL CONDITION? NO . CHILLS NO . FEVER NO . INFECTION: DO YOU HAVE NEW INFECTIONS? NO . DO YOU HAVE HISTORY OF MRSA? NO . MUSCULOSKELETAL: ANY NEW PATTERNS OF PAIN OR NUMBNESS? NO . GASTROENTEROLOGY: ANY NEW CHANGE IN BOWEL CONTROL? NO . GENITOURINARY: ANY NEW CHANGE IN BLADDER CONTROL? NO . IS THERE A CHANCE YOU COULD BE ? NO . HEMATOLOGY/LYMPH: DO YOU TAKE ANY BLOOD THINNERS? (FOR EXAMPLE- COUMADIN, PLAVIX, AGGRENOX, PLATEL, PRADAXA, OR XARELTO) NO . WHEN WAS YOUR LAST DOSE? DATE: TIME: . NEUROLOGY: HAVE YOU FALLEN IN THE PAST 12 MONTHS? NO . ANY NEW EXTREMITY NUMBNESS OR WEAKNESS? NO . CARDIOLOGY: DO YOU HAVE A PACEMAKER OR DEFIBRILLATOR? NO . RESPIRATORY: HAVE YOU BEEN SICK IN THE PAST WEEK? NO . FEVER NO . FLU LIKE SYMPTOMS? NO . COUGH NO . INTEGUMENTARY: DO YOU HAVE ANY RASHES OR OPEN SORES? NO . ALLERGIC/IMMUNO: ARE YOU ALLERGIC TO IV DYE? NO . ANY NEW ALLERGIES? NO . PSYCHIATRIC: DO YOU HAVE THOUGHTS OF HURTING YOURSELF OR SOMEONE ELSE? NO . ARE YOU ABUSED, NEGLECTED, OR IN AN UNSAFE ENVIRONMENT? NO . ENDOCRINOLOGY: ARE YOU DIABETIC? YES . OTHER: DO YOU NEED ANY PRESCRIPTIONS? NO . IF YES, PLEASE LIST: ____ . ANY NEW PROBLEMS WITH YOUR MEDICATIONS? NO . WHEN DID YOU LAST EAT? ____ . WHEN DID YOU LAST DRINK? ____ . WHAT DID YOU LAST DRINK? ____ . NAME OF PERSON DRIVING YOU HOME? ____ . DO YOU HAVE ANY OTHER QUESTIONS OR CONCERNS NO . VITAL SIGNS WT 179.8 LBS, HT 70 IN, BMI 25.80 INDEX, BP 135/90 MM HG, HR 78 /MIN, RR 16 /MIN, TEMP 96.3 F, OXYGEN SAT % 99%, SAFE IN ENV? (Y/N) YES, NA INITIALS TL 1040, REVIEWED BY: BRANNON. EXAMINATION GENERAL EXAMINATION: LUNGS: LUNG SOUNDS ARE CLEAR . HEART: HEART RATE REGULAR . MUSCULOSKELETAL:*, MUSCLE STRENGTH TESTING 5/5 BILATERAL UPPER EXTREMITIES. . THORACIC SPINE: TRIGGER POINTS ELICITED MID SCAPULAR-T5/6 PARASPINAL. DIAGNOSTIC TESTS REVIEWEDCERVICAL MRI -2019. ASSESSMENTS MYALGIA, OTHER SITE - M79.18 (PRIMARY) TREATMENT MYALGIA, OTHER SITE NOTES: TRIGGER POINT INJECTIONS LEFT UPPER BACK/NECK. PREVENTIVE MEDICINE PAIN CLINIC TEACHING: PROCEDURE TEACHING REVIEWED INFORMATION ON TRIGGER POINT INJECTION PROCEDURE WITH PATIENT. ALSO REVIEWED PRE-PROCEDURE INSTRUCTIONS. PATIENT VERBALIZED AN UNDERSTANDING. SHRADDHA BONILLA 12/02/2019 4:46:31 PM > . PROCEDURE CODES FA211 ESTABILISHED PATIENT [facility] CHARGE DISPOSITION & COMMUNICATION FOLLOW UP POST (REASON: TRIGGER POINT INJECTIONS LEFT UPPER BACK/NECK) ELECTRONICALLY SIGNED BY MARTÍN GOLDBERG ON 12/20/2019 AT 08:52 AM EST DISCLAIMER : THIS IS A VISIT SUMMARY EXTRACTED FROM THE [employer] CHART. IT IS NOT A COPY OF THE [employer] PROGRESS NOTE. TERESA
== END ==
LOC: M PAIN 10:15
PROVIDERS: ATTEND Nurse Practitioner Family
DX: M79.18 Myalgia, other site (principal)

== ENCOUNTER → 2019-12-07 | Outpatient (CLI) | payer OTHER ==
[~2019-12-07] MED LIST changes: +BUPIVACAINE HCL 0.25% 30 ML VIAL As Ordered ONE; +TRIAMCINOLONE ACETONIDE SUSP 40 MG/ML VIAL (J3301) As Ordered ONE
--- NOTE | 2019-12-17 00:33 | ECWPNPC ---
PATIENT NAME: HAI DAIGLE : 1965 GENDER: MALE VISIT DATE: 12/07/2019 DISCHARGE DATE: 12/07/19 1146 VISIT LOCKED DATE TIME: PHYSICIAN: BONY ANTOINE MD RESOURCE: BONY ANTOINE MD REASON FOR APPOINTMENT 1. TRIGGER POINT INJECTIONS BILATERAL SHOULDER/BILATERAL THORACIC HISTORY OF PRESENT ILLNESS HISTORY OF PRESENT ILLNESS: PAIN THE PATIENT DESCRIBES THE PAIN... FALL RISK SCREENING: SCREENING :NO FALLS REPORTED IN THE LAST YEAR CURRENT MEDICATIONS TAKING AMLODIPINE BESYLATE 2.5 MG TABLET 1 TABLET ORALLY ONCE A DAY, NOTES: 12/07/2019699 TAKING ASPIR-81 81 MG TABLET DELAYED RELEASE 1 TABLET ORALLY EVERY OTHER DAY, NOTES: 12/07/2019699 TAKING CITRACAL PLUS 400MG TABLET 2 TABS ORALLY AT BEDTIME, NOTES: 12/06/20192099 TAKING FLECAINIDE ACETATE 50 MG TABLET 1 TABLET ORALLY EVERY 12 HRS, NOTES: 12/06/20192099 TAKING VITAMIN D3 MAXIMUM STRENGTH 5000 UNIT CAPSULE 1 CAPSULE ORALLY DAILY, NOTES: 12/07/2019699 TAKING VITAMIN B-12 500 MCG TABLET 1 TABLET ORALLY ONCE A DAY, NOTES: 12/07/2019699 TAKING TRULICITY 0.75 MG/0.5ML SOLUTION PEN-INJECTOR SUBCUTANEOUS WEEKLY, NOTES: 12/04/2019 TAKING PRILOSEC 40 MG CAPSULE DELAYED RELEASE 1 CAPSULE ORALLY ONCE A DAY, NOTES: 12/06/20192099 TAKING POTASSIUM BICARB & CHLORIDE 20 MEQ PACKET 2 TABS ORALLY TWICE A DAY, NOTES: 12/07/2019699 TAKING METFORMIN HCL 1000 MG TABLET 1 TABLET WITH MEALS ORALLY TWICE DAILY, NOTES: 12/06/2019699 TAKING PROBIOTIC 1 CAPSULE 1 CAP ORALLY DAILY, NOTES: 12/07/2019699 TAKING MAGNESIUM 400 MG CAPSULE 1 CAP ORALLY BID, NOTES: 12/07/2019699 TAKING BISOPROLOL FUMARATE 5 MG TABLET 1 TABLET ORALLY ONCE A DAY, NOTES: 12/06/20192099 TAKING LIPITOR 10 MG TABLET 1 TABLET ORALLY ONCE A DAY, NOTES: 12/06/20192099 TAKING MULTI FOR HIM TABLET 2 TABS ORALLY DAILY, NOTES: 12/07/2019699 TAKING TAMSULOSIN HCL 0.4 MG CAPSULE 1 CAPSULE ONCE A DAY, NOTES: 12/07/2019 TAKING ZOFRAN 8 MG TABLET 1 TABLET ORALLY Q 8 HOURS NEEDED, NOTES: 12/06/20192099 TAKING LOSARTAN POTASSIUM 25 MG TABLET 1 TABLET ORALLY ONCE A DAY, NOTES: 12/07/2019699 TAKING SPIRONOLACTONE 25 MG TABLET 1 TABLET ORALLY ONCE A DAY, NOTES: 12/07/2019699 TAKING TOPIRAMATE 50 MG TABLET 1 TABLET ORALLY BEFORE BEDTIME, NOTES: 12/06/20192099 TAKING COLCRYS 0.6 MG TABLET 1 TABLET PRN ORALLY ONCE A DAY, NOTES: MONTHS AGO TAKING CYMBALTA 60 MG CAPSULE DELAYED RELEASE PARTICLES 1 CAPSULE ORALLY BEFORE BEDTIME, NOTES: 12/06/20192099 TAKING TIZANIDINE HCL 2 MG TABLET 1 TABLET NEEDED ORALLY EVERY 8 HRS, NOTES: 12/06/2019 TAKING GABAPENTIN 300 MG CAPSULE 1 CAPSULE ORALLY BEFORE BEDTIME, NOTES: 12/06/20192099 TAKING DICYCLOMINE HCL 20 MG TABLET 1 TABLET NEEDED ORALLY QID, NOTES: 12/06/20192099 TAKING COLESTIPOL HCL 1 GM TABLET 1 TABLET NEEDED ORALLY TID, NOTES: 12/07/2019699 TAKING MELATONIN 5 MG TABLET 1 TABLET AT BEDTIME NEEDED WITH FOOD ORALLY ONCE A DAY, NOTES: NONE RECENTLY TAKING SOMA 350 MG TABLET 1 TABLET NEEDED ORALLY FOR SPASMS AND PAIN EVERY 12 HOURS NEEDED MDD2, NOTES: 12/06/20192099 TAKING PERCOCET 5-325 MG TABLET 1 TABLET NEEDED ORALLY EVERY 6 HRS MDD4, NOTES: 12/06/20192099 NOT-TAKING JARDIANCE 10 MG TABLET 1 TABLET ONCE A DAY, NOTES: 11-29- 07 NOT-TAKING PERCOCET 5-325 MG TABLET 1 TO 2 TAB ORALLY Q6H PRN MDD 4, NOTES: DUPLICATE NOT-TAKING ENTOCORT EC 3 MG CAPSULE DELAYED RELEASE PARTICLES DIRECTED ORALLY , NOTES: 2 WEEKS MEDICATION LIST REVIEWED AND RECONCILED WITH THE PATIENT PAST MEDICAL HISTORY DIABETES MIGRAINES PAF - INTERMITTENT A-FIB HTN GERD HIGH CHOLESTEROL GUILLAIN BARRE PNEUMONIA ILIEITIS A FIB WITH RVR DIVERTICULITIS BPH ED MULTIPLE GI PROBLEMS CHRON'S ALLERGIES N.K.D.A. SURGICAL HISTORY BOWEL RESECTION 2013 RIGHT KNEE ARTHROSCOPY, LEFT ALSO DONE YEARS LATER 2013 GASTRIC BYPASS RIGHT INGUINAL HERNIA REPAIR 06/24/18 CHOLECYSTECTOMY 11/2018 FAMILY HISTORY FATHER: , DIAGNOSED WITH DIABETES, OTHER MALIGNANT NEOPLASM OF UNSPECIFIED SITE MOTHER: , DIABETES, HYPERTENSION, OTHER SPECIFIED CONDITIONS INFLUENCING HEALTH STATUS SIBLINGS: ALIVE 4 BROTHER(S) , 2 SISTER(S) . 1 SON(S) , 1 DAUGHTER(S) - HEALTHY. 1 SISTER . 1 SISTER HAS ALOT OF MEDICAL ISSUES ALSO. SOCIAL HISTORY GENERAL: TOBACCO USE ARE YOU A:NONSMOKER OTHERS AT HOME: SPOUSE. EDUCATION LEVEL OF EDUCATION:FINISHED HIGH SCHOOL DIET: REGULAR. LANGUAGE LANGUAGES SPOKEN:PERSIAN DOMESTIC VIOLENCE DO YOU FEEL SAFE IN YOUR ENVIRONMENT?YES RECREATIONAL DRUG USE DRUG USE?NO EXERCISE: WALKS. LEARNING BARRIERS / SPECIAL NEEDS CHANGE FROM LAST VISIT?NO BARRIERS TO LEARNING?NO HEARING IMPAIRED?NO VISION IMPAIRED?YES COGNITIVELY IMPAIRED?NO :CORRECTIVE LENSES READINESS TO LEARN?YES LEARNING PREFERENCES?NO LEARNING CAPABILITIES PRESENT?YES EMOTIONAL BARRIERS?NO SPECIAL DEVICES?NO STORE HOST NEEDED?NO PAIN CLINIC PFS, CLERGY, PUBLIC HEALTH REFERRALS PFS REFERRAL NEEDED?NO CLERGY REFERRAL NEEDED?NO PUBLIC HEALTH REFERRAL NEEDED?NO WAS THE PROVIDER NOTIFIED OF ANY PERTINENT INFO? N/A HAS THE PATIENT BEEN EDUCATED REGARDING HIS/HER PLAN OF CARE?YES HAS THE PATIENT BEEN EDUCATED REGARDING PAIN, THE RISK FOR PAIN, THE IMPORTANCE OF EFFECTIVE PAIN MANAGEMENT, AND THE PAIN ASSESSMENT PROCESS?YES LATEX QUESTIONNAIRE LATEX ALLERGY : HAVE YOU EVER DEVELOPED ANY TYPE OF REACTION AFTER HANDLING LATEX PRODUCTS SUCH RUBBER GLOVES, CONDOMS, DIAPHRAGMS, BALLOONS, SOCKS, OR UNDERWEAR?NO LATEX ALLERGY : HAVE YOU EVER DEVELOPED ANY TYPE OF REACTION DURING OR AFTER DENTAL APPOINTMENT, VAGINAL/RECTAL EXAMINATION, SURGICAL PROCEDURE, OR ANY OTHER EXPOSURE?NO DATE ASKED : 05/26/2019 LATEX RISK : HAVE YOU EVER HAD ANY DIFFICULTY BREATHING OR HIVES AFTER EATING OR HANDLING ANY FRUITS, OR VEGETABLES; SUCH KIWI, BANANAS, STONE FRUITS, OR CHESTNUTSNO LATEX RISK : DO YOU HAVE A PREVIOUS PERSONAL HISTORY OF MORE THAN NINE SURGERIES, SPINA BIFIDA, OR REPEATED CATHERIZATIONS? NO LATEX RISK : ARE YOU FREQUENTLY EXPOSED TO LATEX PRODUCTS IN YOUR OCCUPATION?NO CAFFEINE CAFFEINE USE?YES 1-2 SODA/DAY ADVANCE DIRECTIVE ADVANCE DIRECTIVE DISCUSSED WITH PATIENT:YES HCP ON FILE , AUDREY [phone] MOR[facility] [id number] OTHER MARITAL STATUS: . 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 SEXUAL HX HAD SEX IN THE LAST 12 MONTHS (VAGINAL, ORAL, OR ANAL)?NO HAVE YOU EVER HAD AN STD?NO 12/01/18 REVIEWED WITH PT. ADREVIEWED WITH PATIENT 03/01/19 1406 JSREVIEWED WITH PATIENT 06/14/19 0910 LASREVIEWED WITH PATIENT 07/01/19 0908 JSPRE PROCEDURE PHONE CALL COMPLETED 11/16/19 NLJ 1701REVIEWED WITH PATIENT 12/02/2019 1047 JSREVIEWED WITH PATIENT 12/07/2019 1047 NLJ. HOSPITALIZATION/MAJOR DIAGNOSTIC PROCEDURE SURGERY RELATED GUILLAIN BARRE REQUIRING PLASMAPHERESIS, IVIG, STEROIDS AND INTUBATION [facility] 09/2015 PNEUMONIA, ILEITIS 02/2018 REVIEW OF SYSTEMS REVIEWED BY: PROVIDER: . CONSTITUTIONAL: ANY CHANGE IN YOUR MEDICAL CONDITION? NO . CHILLS NO . FEVER NO . INFECTION: DO YOU HAVE NEW INFECTIONS? NO . DO YOU HAVE HISTORY OF MRSA? NO . MUSCULOSKELETAL: ANY NEW PATTERNS OF PAIN OR NUMBNESS? NO . GASTROENTEROLOGY: ANY NEW CHANGE IN BOWEL CONTROL? NO . GENITOURINARY: ANY NEW CHANGE IN BLADDER CONTROL? NO . IS THERE A CHANCE YOU COULD BE ? NO . HEMATOLOGY/LYMPH: DO YOU TAKE ANY BLOOD THINNERS? (FOR EXAMPLE- COUMADIN, PLAVIX, AGGRENOX, PLATEL, PRADAXA, OR XARELTO) NO . WHEN WAS YOUR LAST DOSE? DATE: TIME: . NEUROLOGY: HAVE YOU FALLEN IN THE PAST 12 MONTHS? NO . ANY NEW EXTREMITY NUMBNESS OR WEAKNESS? NO . CARDIOLOGY: DO YOU HAVE A PACEMAKER OR DEFIBRILLATOR? NO . RESPIRATORY: HAVE YOU BEEN SICK IN THE PAST WEEK? NO . FEVER NO . FLU LIKE SYMPTOMS? NO . COUGH NO . INTEGUMENTARY: DO YOU HAVE ANY RASHES OR OPEN SORES? NO . ALLERGIC/IMMUNO: ARE YOU ALLERGIC TO IV DYE? NO . ANY NEW ALLERGIES? NO . PSYCHIATRIC: DO YOU HAVE THOUGHTS OF HURTING YOURSELF OR SOMEONE ELSE? NO . ARE YOU ABUSED, NEGLECTED, OR IN AN UNSAFE ENVIRONMENT? NO . ENDOCRINOLOGY: ARE YOU DIABETIC? YES-FSBS 136 @ 0700 . OTHER: DO YOU NEED ANY PRESCRIPTIONS? NO . IF YES, PLEASE LIST: ____ . ANY NEW PROBLEMS WITH YOUR MEDICATIONS? NO . WHEN DID YOU LAST EAT? 12-06-19 2100 . WHEN DID YOU LAST DRINK? 12-07-19 0700 . WHAT DID YOU LAST DRINK? WATER . NAME OF PERSON DRIVING YOU HOME? SCOOBY . DO YOU HAVE ANY OTHER QUESTIONS OR CONCERNS NO . VITAL SIGNS WT 179.8 LBS, HT 70 IN, BMI 25.80 INDEX, BP 142/81 MM HG, HR 80 /MIN, RR 18 /MIN, TEMP 96.0 F, OXYGEN SAT % 99%, BLOOD GLUCOSE LEVEL 136 @ 0700, SAFE IN ENV? (Y/N) YES, NA INITIALS AW 1021, REVIEWED BY: NLJ. ASSESSMENTS MYALGIA, OTHER SITE - M79.18 (PRIMARY) PROCEDURES PN TRIGGER POINT INJECTION WITH STEROIDS PRE PROCEDURE DIAGNOSIS 1. MYALGIA 2. PAIN AT BILATERAL SHOULDER AREA AND BILATERAL THORACIC AREA. POST PROCEDURE DIAGNOSIS 1. MYALGIA 2. PAIN AT BILATERAL SHOULDER AREA AND BILATERAL THORACIC AREA. PROCEDURE TRIGGER POINT INJECTION AT RIGHT AND LEFT SHOULDER AREA AND RIGHT AND LEFT THORACIC AREA. SURGEON DR. BONY ANTOINE INFRASTRUCTURE ARCHITECT NONE ANESTHESIA LOCAL PRE PROCEDURE NOTE THE PATIENT HAS A HISTORY OF CHRONIC PAIN AT THE RIGHT AND LEFT SHOULDER AREA AND RIGHT AND LEFT THORACIC AREA. I EVALUATED THE PATIENT AND REVIEWED THE CHART. THERE IS EVIDENCE OF BANDS OF TISSUE WITH RESTRICTION OF MOVEMENT AND PRESENCE OF TRIGGER POINT AT THE AFFECTED AREA. I WENT OVER THE RISKS, ALTERNATIVES, AND BENEFITS ASSOCIATED WITH THIS PROCEDURE. THE PATIENT WOULD LIKE TO PROCEED AND GIVES CONSENT TO PERFORM THE PROCEDURE. THE PATIENT DENIES UNEXPLAINABLE WEIGHT LOSS, FEVER, CHILLS, OR NEW CHANGES IN URINARY OR BOWEL CONTROL DESCRIPTION OF PROCEDURE THE PATIENT WAS BROUGHT TO THE PROCEDURE ROOM AND PLACED IN THE SITTING POSITION. THE AREA WAS CLEANED WITH ALCOHOL. THE PROCEDURE WAS DONE USING ASEPTIC STERILE TECHNIQUE. I CHECKED LATERALITY AND THE LEVEL WHERE THE PROCEDURE WAS GOING TO BE PERFORMED WITH THE PATIENT AND THE SUPPORTING STAFF AT THE MOMENT OF THE TIME OUT IN THE PROCEDURE ROOM. USING A 25-GAUGE NEEDLE, TRIGGER POINTS WERE INJECTED AT THE RIGHT AND LEFT SHOULDER AREA AND RIGHT AND LEFT THORACIC AREA WITH A TOTAL OF 40 ML OF BUPIVACAINE 0.25% AND KENALOG 40 MG. THERE WAS NO EVIDENCE OF BLOOD, PARESTHESIA OR CEREBROSPINAL FLUID DURING THE PROCEDURE. THE PATIENT WAS SENT TO THE RECOVERY ROOM. THE PATIENT WAS MOVING THE EXTREMITIES AND DOING WELL. THERE WAS NO COMPLICATION DURING THE PROCEDURE POST PROCEDURE NOTE THE PATIENT WILL BE SEEN IN A FOLLOW UP IN THE NEXT FEW WEEKS. I AM LOOKING FOR LONG LASTING PAIN RELIEF WITH THESE INJECTIONS. INSTRUCTIONS WERE GIVEN, QUESTIONS WERE ANSWERED, AND THE PATIENT EXPRESSED UNDERSTANDING AND AGREES WITH THE PLAN. I, MAI ALCANTAR, DOCUMENTED THE ABOVE INFORMATION ACTING A SCRIBE FOR DR. ANTOINE. I HAVE REVIEWED THE ABOVE DOCUMENT, WRITTEN BY MAI ALCANTAR SCRIBE AND I VERIFY THAT IT IS ACCURATE. PROCEDURE CODES 80537 INJECT TRIGGER POINTS 3/> DISPOSITION & COMMUNICATION FOLLOW UP 3 WEEKS ELECTRONICALLY SIGNED BY BONY ANTOINE MD, MD ON 12/16/2019 AT 05:29 PM EST DISCLAIMER : THIS IS A VISIT SUMMARY EXTRACTED FROM THE [employer] CHART. IT IS NOT A COPY OF THE [employer] PROGRESS NOTE. TERESA
== END ==
LOC: M PAIN 10:00
PROVIDERS: ATTEND Anesthesiology
DX: M79.18 Myalgia, other site (principal); E11.9 Type 2 diabetes mellitus without complications; G43.909 Migraine, unspecified, not intractable, without status migrainosus; I10 Essential (primary) hypertension; Z98.84 Bariatric surgery status; Z79.82 Long term (current) use of aspirin; Z79.84 Long term (current) use of oral hypoglycemic drugs; Z79.899 Other long term (current) drug therapy
CPT/HCPCS: 20553; J3301

== ENCOUNTER → 2020-01-05 | Outpatient (CLI) | payer OTHER ==
[~2020-01-05] MED LIST changes: -BUPIVACAINE HCL 0.25% 30 ML VIAL As Ordered ONE; -TRIAMCINOLONE ACETONIDE SUSP 40 MG/ML VIAL (J3301) As Ordered ONE
--- NOTE | 2020-01-06 02:22 | ECWPNPC ---
PATIENT NAME: HAI DAIGLE : 1965 GENDER: MALE VISIT DATE: 01/05/2020 DISCHARGE DATE: 01/05/20 0954 VISIT LOCKED DATE TIME: PHYSICIAN: BRITT LANCASTER RESOURCE: BRITT LANCASTER HISTORY OF PRESENT ILLNESS HISTORY OF PRESENT ILLNESS: HERE FOR POST PROCEDURE FOLLOW-UP. HEAD TRIGGER POINT INJECTIONS TO NECK AND UPPER BACK ON 12/07/2019. REPORTING MARKED REDUCTION IN PAIN THAT CONTINUES TODAY. RATING PAIN SCORE A 0-4/10 VAS. CONTINUES WITH USE OF PAIN MEDICATION WHICH PATIENT FINDS IS HELPFUL AND DENIES SIDE EFFECTS. SCHEDULED FOR LAPAROSCOPIC INVESTIGATION OF STOMACH COMPLAINTS AND WEIGHT LOSS OVER THE PAST 6 MONTHS. HISTORY OF GASTRIC BYPASS SURGERY A FEW YEARS AGO. PAIN THE PATIENT DESCRIBES THE PAIN... FALL RISK SCREENING: SCREENING :NO FALLS REPORTED IN THE LAST YEAR CURRENT MEDICATIONS TAKING AMLODIPINE BESYLATE 2.5 MG TABLET 1 TABLET ORALLY ONCE A DAY TAKING ASPIR-81 81 MG TABLET DELAYED RELEASE 1 TABLET ORALLY EVERY OTHER DAY TAKING CITRACAL PLUS 400MG TABLET 2 TABS ORALLY AT BEDTIME TAKING FLECAINIDE ACETATE 50 MG TABLET 1 TABLET ORALLY EVERY 12 HRS TAKING VITAMIN D3 MAXIMUM STRENGTH 5000 UNIT CAPSULE 1 CAPSULE ORALLY DAILY TAKING VITAMIN B-12 500 MCG TABLET 1 TABLET ORALLY ONCE A DAY TAKING TRULICITY 0.75 MG/0.5ML SOLUTION PEN-INJECTOR SUBCUTANEOUS WEEKLY TAKING PRILOSEC 40 MG CAPSULE DELAYED RELEASE 1 CAPSULE ORALLY ONCE A DAY TAKING POTASSIUM BICARB & CHLORIDE 20 MEQ PACKET 2 TABS ORALLY TWICE A DAY TAKING METFORMIN HCL 1000 MG TABLET 1 TABLET WITH MEALS ORALLY TWICE DAILY TAKING PROBIOTIC 1 CAPSULE 1 CAP ORALLY DAILY TAKING MAGNESIUM 400 MG CAPSULE 1 CAP ORALLY BID TAKING BISOPROLOL FUMARATE 5 MG TABLET 1 TABLET ORALLY ONCE A DAY TAKING LIPITOR 10 MG TABLET 1 TABLET ORALLY ONCE A DAY TAKING MULTI FOR HIM TABLET 2 TABS ORALLY DAILY TAKING TAMSULOSIN HCL 0.4 MG CAPSULE 1 CAPSULE ONCE A DAY TAKING ZOFRAN 8 MG TABLET 1 TABLET ORALLY Q 8 HOURS NEEDED TAKING LOSARTAN POTASSIUM 25 MG TABLET 1 TABLET ORALLY ONCE A DAY TAKING SPIRONOLACTONE 25 MG TABLET 1 TABLET ORALLY ONCE A DAY TAKING TOPIRAMATE 50 MG TABLET 1 TABLET ORALLY BEFORE BEDTIME TAKING COLCRYS 0.6 MG TABLET 1 TABLET PRN ORALLY ONCE A DAY TAKING CYMBALTA 60 MG CAPSULE DELAYED RELEASE PARTICLES 1 CAPSULE ORALLY BEFORE BEDTIME TAKING TIZANIDINE HCL 2 MG TABLET 1 TABLET NEEDED ORALLY EVERY 8 HRS TAKING GABAPENTIN 300 MG CAPSULE 1 CAPSULE ORALLY BEFORE BEDTIME TAKING DICYCLOMINE HCL 20 MG TABLET 1 TABLET NEEDED ORALLY QID TAKING COLESTIPOL HCL 1 GM TABLET 1 TABLET NEEDED ORALLY TID TAKING MELATONIN 5 MG TABLET 1 TABLET AT BEDTIME NEEDED WITH FOOD ORALLY ONCE A DAY TAKING SOMA 350 MG TABLET 1 TABLET NEEDED ORALLY FOR SPASMS AND PAIN EVERY 12 HOURS NEEDED MDD2 TAKING PERCOCET 5-325 MG TABLET 1 TABLET NEEDED ORALLY EVERY 6 HRS MDD4 TAKING JARDIANCE 10 MG TABLET 1 TABLET ONCE A DAY NOT-TAKING PERCOCET 5-325 MG TABLET 1 TO 2 TAB ORALLY Q6H PRN MDD 4, NOTES: DUPLICATE NOT-TAKING ENTOCORT EC 3 MG CAPSULE DELAYED RELEASE PARTICLES DIRECTED ORALLY , NOTES: 2 WEEKS MEDICATION LIST REVIEWED AND RECONCILED WITH THE PATIENT PAST MEDICAL HISTORY DIABETES MIGRAINES PAF - INTERMITTENT A-FIB HTN GERD HIGH CHOLESTEROL GUILLAIN BARRE PNEUMONIA ILIEITIS A FIB WITH RVR DIVERTICULITIS BPH ED MULTIPLE GI PROBLEMS CHRON'S ALLERGIES N.K.D.A. SURGICAL HISTORY BOWEL RESECTION 2013 RIGHT KNEE ARTHROSCOPY, LEFT ALSO DONE YEARS LATER 2013 GASTRIC BYPASS RIGHT INGUINAL HERNIA REPAIR 06/24/18 CHOLECYSTECTOMY 11/2018 EGD 12/2019 FAMILY HISTORY FATHER: , DIAGNOSED WITH DIABETES, OTHER MALIGNANT NEOPLASM OF UNSPECIFIED SITE MOTHER: , DIABETES, HYPERTENSION, OTHER SPECIFIED CONDITIONS INFLUENCING HEALTH STATUS SIBLINGS: ALIVE 4 BROTHER(S) , 2 SISTER(S) . 1 SON(S) , 1 DAUGHTER(S) - HEALTHY. 1 SISTER . 1 SISTER HAS ALOT OF MEDICAL ISSUES ALSO. SOCIAL HISTORY GENERAL: TOBACCO USE ARE YOU A:NONSMOKER OTHERS AT HOME: SPOUSE. EDUCATION LEVEL OF EDUCATION:FINISHED HIGH SCHOOL DIET: REGULAR. LANGUAGE LANGUAGES SPOKEN:JAPANESE DOMESTIC VIOLENCE DO YOU FEEL SAFE IN YOUR ENVIRONMENT?YES RECREATIONAL DRUG USE DRUG USE?NO EXERCISE: WALKS. 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 N/A HAS THE PATIENT BEEN EDUCATED REGARDING HIS/HER PLAN OF CARE?YES HAS THE PATIENT BEEN EDUCATED REGARDING PAIN, THE RISK FOR PAIN, THE IMPORTANCE OF EFFECTIVE PAIN MANAGEMENT, AND THE PAIN ASSESSMENT PROCESS?YES LATEX QUESTIONNAIRE LATEX ALLERGY : HAVE YOU EVER DEVELOPED ANY TYPE OF REACTION AFTER HANDLING LATEX PRODUCTS SUCH RUBBER GLOVES, CONDOMS, DIAPHRAGMS, BALLOONS, SOCKS, OR UNDERWEAR?NO LATEX ALLERGY : HAVE YOU EVER DEVELOPED ANY TYPE OF REACTION DURING OR AFTER DENTAL APPOINTMENT, VAGINAL/RECTAL EXAMINATION, SURGICAL PROCEDURE, OR ANY OTHER EXPOSURE?NO LATEX RISK : HAVE YOU EVER HAD ANY DIFFICULTY BREATHING OR HIVES AFTER EATING OR HANDLING ANY FRUITS, OR VEGETABLES; SUCH KIWI, BANANAS, STONE FRUITS, OR CHESTNUTSNO LATEX RISK : DO YOU HAVE A PREVIOUS PERSONAL HISTORY OF MORE THAN NINE SURGERIES, SPINA BIFIDA, OR REPEATED CATHERIZATIONS? NO LATEX RISK : ARE YOU FREQUENTLY EXPOSED TO LATEX PRODUCTS IN YOUR OCCUPATION?NO DATE ASKED : 05/26/2019 CAFFEINE CAFFEINE USE?YES 1-2 SODA/DAY ADVANCE DIRECTIVE ADVANCE DIRECTIVE DISCUSSED WITH PATIENT:YES HCP ON FILE AUDREY [phone] [facility] [employer] [id number] OTHER MARITAL STATUS: . 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 SEXUAL HX HAD SEX IN THE LAST 12 MONTHS (VAGINAL, ORAL, OR ANAL)?NO HAVE YOU EVER HAD AN STD?NO 12/01/18 REVIEWED WITH PT. ADREVIEWED WITH PATIENT 03/01/19 1406 JSREVIEWED WITH PATIENT 06/14/19 0910 LASREVIEWED WITH PATIENT 07/01/19 0908 JSPRE PROCEDURE PHONE CALL COMPLETED 11/16/19 [facility] 1701REVIEWED WITH PATIENT 12/02/2019 1047 JSREVIEWED WITH PATIENT 12/07/2019 1047 NLJREVIEWED WITH PATIENT 01/05/2020 0926 JS. HOSPITALIZATION/MAJOR DIAGNOSTIC PROCEDURE SURGERY RELATED GUILLAIN BARRE REQUIRING PLASMAPHERESIS, IVIG, STEROIDS AND INTUBATION [facility] 09/2015 PNEUMONIA, ILEITIS 02/2018 REVIEW OF SYSTEMS REVIEWED BY: PROVIDER: BRITT RESENDIZ . CONSTITUTIONAL: ANY CHANGE IN YOUR MEDICAL CONDITION? NO . CHILLS NO . FEVER NO . INFECTION: DO YOU HAVE NEW INFECTIONS? NO . DO YOU HAVE HISTORY OF MRSA? NO . MUSCULOSKELETAL: ANY NEW PATTERNS OF PAIN OR NUMBNESS? NO . GASTROENTEROLOGY: ANY NEW CHANGE IN BOWEL CONTROL? NO . GENITOURINARY: ANY NEW CHANGE IN BLADDER CONTROL? NO . IS THERE A CHANCE YOU COULD BE ? NO . HEMATOLOGY/LYMPH: DO YOU TAKE ANY BLOOD THINNERS? (FOR EXAMPLE- COUMADIN, PLAVIX, AGGRENOX, PLATEL, PRADAXA, OR XARELTO) NO . WHEN WAS YOUR LAST DOSE? DATE: TIME: . NEUROLOGY: HAVE YOU FALLEN IN THE PAST 12 MONTHS? NO . ANY NEW EXTREMITY NUMBNESS OR WEAKNESS? NO . CARDIOLOGY: DO YOU HAVE A PACEMAKER OR DEFIBRILLATOR? NO . RESPIRATORY: HAVE YOU BEEN SICK IN THE PAST WEEK? NO . FEVER NO . FLU LIKE SYMPTOMS? NO . COUGH NO . INTEGUMENTARY: DO YOU HAVE ANY RASHES OR OPEN SORES? NO . ALLERGIC/IMMUNO: ARE YOU ALLERGIC TO IV DYE? NO . ANY NEW ALLERGIES? NO . PSYCHIATRIC: DO YOU HAVE THOUGHTS OF HURTING YOURSELF OR SOMEONE ELSE? NO . ARE YOU ABUSED, NEGLECTED, OR IN AN UNSAFE ENVIRONMENT? NO . ENDOCRINOLOGY: ARE YOU DIABETIC? YES . OTHER: DO YOU NEED ANY PRESCRIPTIONS? NO . IF YES, PLEASE LIST: ____ . ANY NEW PROBLEMS WITH YOUR MEDICATIONS? NO . WHEN DID YOU LAST EAT? ____ . WHEN DID YOU LAST DRINK? ____ . WHAT DID YOU LAST DRINK? ____ . NAME OF PERSON DRIVING YOU HOME? ____ . DO YOU HAVE ANY OTHER QUESTIONS OR CONCERNS NO . VITAL SIGNS WT 169.2 LBS, HT 70 IN, BMI 24.28 INDEX, BP 145/83 MM HG, HR 81 /MIN, RR 18 /MIN, TEMP 97.0 F, OXYGEN SAT % 100%, SAFE IN ENV? (Y/N) YES, NA INITIALS AW 0923, REVIEWED BY: BRANNON. EXAMINATION GENERAL EXAMINATION: GENERALAWAKE,ALERT ,PLEASANT . PSYCHAFFECT NORMAL . LUNGS:LUNG VALLADARES ARE CLEAR TO AUSCULTATION BILATERALLY. GOOD MOVEMENT OF AIR . HEART:S1, S2 IN A REGULAR RATE AND RHYTHM. NO SIGNIFICANT MURMURS, RUBS OR GALLOPS NOTED . ASSESSMENTS MYALGIA, OTHER SITE - M79.18 (PRIMARY) TREATMENT MYALGIA, OTHER SITE CONTINUE CYMBALTA CAPSULE DELAYED RELEASE PARTICLES, 60 MG, 1 CAPSULE, ORALLY, BEFORE BEDTIME CONTINUE TIZANIDINE HCL TABLET, 2 MG, 1 TABLET NEEDED, ORALLY, EVERY 8 HRS CONTINUE GABAPENTIN CAPSULE, 300 MG, 1 CAPSULE, ORALLY, BEFORE BEDTIME CONTINUE SOMA TABLET, 350 MG, 1 TABLET NEEDED, ORALLY FOR SPASMS AND PAIN, EVERY 12 HOURS NEEDED MDD2 CONTINUE PERCOCET TABLET, 5-325 MG, 1 TABLET NEEDED, ORALLY, EVERY 6 HRS MDD4 NOTES: ISTOP REGISTRY REVIEWED AND DEMONSTRATES COMPLLIANCE. BRINGS IN MEDICATIONS WHICH IS APPROPRIATE FOR WHAT WAS DISPENSED. RECENT URINE TOXICOLOGY REVIEWED. NO UNAUTHORIZED MEDICATIONS. NO ILLICIT SUBSTANCES AND PRESCRIBED MEDICATIONS WERE PRESENT. , RISKS OF NARCOTIC/OPIOD MEDICATIONS INCLUDES BUT IS NOT LIMITED TO RISK OF DEPENDANCE/DEVELOPMENT OF ADDICTION, MOOD DISTURBANCE AND DEPRESSION, OSTEOPOROSIS, HORMONAL AND LABIDAL CHANGES, RESPIRATORY DEPRESSION AND . PATIENT IS ADVISED NOT TO DRIVE OR DRINK ALCOHOL WHILE ON THESE MEDICATIONS. PROCEDURE CODES FA211 ESTABILISHED PATIENT [facility] CHARGE DISPOSITION & COMMUNICATION FOLLOW UP 2 MONTHS ELECTRONICALLY SIGNED BY MARTÍN GOLDBERG ON 01/05/2020 AT 03:27 PM EST DISCLAIMER : THIS IS A VISIT SUMMARY EXTRACTED FROM THE [employer] CHART. IT IS NOT A COPY OF THE [employer] PROGRESS NOTE. MTDD
== END ==
LOC: M PAIN 09:00
PROVIDERS: ATTEND Nurse Practitioner Family
DX: M79.18 Myalgia, other site (principal)

== ENCOUNTER → 2020-03-06 | Outpatient (CLI) | payer OTHER ==
--- NOTE | 2020-03-08 03:28 | ECWPNPC ---
PATIENT NAME: HAI DAIGLE : 1965 GENDER: MALE VISIT DATE: 03/06/2020 DISCHARGE DATE: 03/06/20946 VISIT LOCKED DATE TIME: PHYSICIAN: BRITT LANCASTER RESOURCE: BRITT LANCASTER REASON FOR APPOINTMENT 1. NECK/SHOULDER HISTORY OF PRESENT ILLNESS HISTORY OF PRESENT ILLNESS: HERE FOR FOLLOW-UP OF CHRONIC NECK AND LOW BACK PAIN. HAS BEEN EXPERIENCING A SIGNIFICANT INCREASE IN HIS NECK AND UPPER BACK PAIN. RATING PAIN INTENSITY 7/10 VAS. MEDICATION IS SOMEWHAT HELPFUL AT REDUCING PAIN. HAS SHOOTING PAINS IN HIS ARM AND INTO HIS HAND, LEFT GREATER THAN RIGHT. REVIEWED MRI OF CERVICAL SPINE AND DISCUSSED TREATMENT OPTIONS. STATES PAIN HAS BEEN SO BAD HE HAS NOT BEEN ABLE TO WORK LATELY. PAIN THE PATIENT DESCRIBES THE PAIN... FALL RISK SCREENING: SCREENING :NO FALLS REPORTED IN THE LAST YEAR CURRENT MEDICATIONS TAKING AMLODIPINE BESYLATE 2.5 MG TABLET 1 TABLET ORALLY ONCE A DAY TAKING ASPIR-81 81 MG TABLET DELAYED RELEASE 1 TABLET ORALLY EVERY OTHER DAY TAKING CITRACAL PLUS 400MG TABLET 2 TABS ORALLY AT BEDTIME TAKING FLECAINIDE ACETATE 50 MG TABLET 1 TABLET ORALLY EVERY 12 HRS TAKING VITAMIN D3 MAXIMUM STRENGTH 5000 UNIT CAPSULE 1 CAPSULE ORALLY DAILY TAKING VITAMIN B-12 500 MCG TABLET 1 TABLET ORALLY ONCE A DAY TAKING TRULICITY 0.75 MG/0.5ML SOLUTION PEN-INJECTOR SUBCUTANEOUS WEEKLY TAKING PRILOSEC 40 MG CAPSULE DELAYED RELEASE 1 CAPSULE ORALLY ONCE A DAY TAKING POTASSIUM BICARB & CHLORIDE 20 MEQ PACKET 2 TABS ORALLY TWICE A DAY TAKING METFORMIN HCL 1000 MG TABLET 1 TABLET WITH MEALS ORALLY TWICE DAILY TAKING PROBIOTIC 1 CAPSULE 1 CAP ORALLY DAILY TAKING MAGNESIUM 400 MG CAPSULE 1 CAP ORALLY BID TAKING BISOPROLOL FUMARATE 5 MG TABLET 1 TABLET ORALLY ONCE A DAY TAKING LIPITOR 10 MG TABLET 1 TABLET ORALLY ONCE A DAY TAKING MULTI FOR HIM TABLET 2 TABS ORALLY DAILY TAKING TAMSULOSIN HCL 0.4 MG CAPSULE 1 CAPSULE ONCE A DAY TAKING ZOFRAN 8 MG TABLET 1 TABLET ORALLY Q 8 HOURS NEEDED TAKING LOSARTAN POTASSIUM 25 MG TABLET 1 TABLET ORALLY ONCE A DAY TAKING SPIRONOLACTONE 25 MG TABLET 1 TABLET ORALLY ONCE A DAY TAKING TOPIRAMATE 50 MG TABLET 1 TABLET ORALLY BEFORE BEDTIME TAKING COLCRYS 0.6 MG TABLET 1 TABLET PRN ORALLY ONCE A DAY TAKING DICYCLOMINE HCL 20 MG TABLET 1 TABLET NEEDED ORALLY QID TAKING COLESTIPOL HCL 1 GM TABLET 1 TABLET NEEDED ORALLY TID TAKING MELATONIN 5 MG TABLET 1 TABLET AT BEDTIME NEEDED WITH FOOD ORALLY ONCE A DAY TAKING JARDIANCE 10 MG TABLET 1 TABLET ONCE A DAY TAKING CYMBALTA 60 MG CAPSULE DELAYED RELEASE PARTICLES 1 CAPSULE ORALLY BEFORE BEDTIME TAKING TIZANIDINE HCL 2 MG TABLET 1 TABLET NEEDED ORALLY EVERY 8 HRS TAKING GABAPENTIN 300 MG CAPSULE 1 CAPSULE ORALLY BEFORE BEDTIME TAKING SOMA 350 MG TABLET 1 TABLET NEEDED ORALLY FOR SPASMS AND PAIN EVERY 12 HOURS NEEDED MDD2 TAKING PERCOCET 5-325 MG TABLET 1 TABLET NEEDED ORALLY EVERY 6 HRS MDD4 NOT-TAKING PERCOCET 5-325 MG TABLET 1 TO 2 TAB ORALLY Q6H PRN MDD 4, NOTES: DUPLICATE NOT-TAKING ENTOCORT EC 3 MG CAPSULE DELAYED RELEASE PARTICLES DIRECTED ORALLY , NOTES: 2 WEEKS MEDICATION LIST REVIEWED AND RECONCILED WITH THE PATIENT PAST MEDICAL HISTORY DIABETES MIGRAINES PAF - INTERMITTENT A-FIB HTN GERD HIGH CHOLESTEROL GUILLAIN BARRE PNEUMONIA ILIEITIS A FIB WITH RVR DIVERTICULITIS BPH ED MULTIPLE GI PROBLEMS CHRON'S ALLERGIES N.K.D.A. SURGICAL HISTORY BOWEL RESECTION 2013 RIGHT KNEE ARTHROSCOPY, LEFT ALSO DONE YEARS LATER 2013 GASTRIC BYPASS RIGHT INGUINAL HERNIA REPAIR 06/24/18 CHOLECYSTECTOMY 11/2018 EGD 12/2019 EXPLORATORY LAP 12/2019 FAMILY HISTORY FATHER: , DIAGNOSED WITH DIABETES, OTHER MALIGNANT NEOPLASM OF UNSPECIFIED SITE MOTHER: , DIABETES, HYPERTENSION, OTHER SPECIFIED CONDITIONS INFLUENCING HEALTH STATUS SIBLINGS: ALIVE 4 BROTHER(S) , 2 SISTER(S) . 1 SON(S) , 1 DAUGHTER(S) - HEALTHY. 1 SISTER . 1 SISTER HAS ALOT OF MEDICAL ISSUES ALSO. SOCIAL HISTORY GENERAL: TOBACCO USE ARE YOU A:NONSMOKER LATEX QUESTIONNAIRE LATEX ALLERGY : HAVE YOU EVER DEVELOPED ANY TYPE OF REACTION AFTER HANDLING LATEX PRODUCTS SUCH RUBBER GLOVES, CONDOMS, DIAPHRAGMS, BALLOONS, SOCKS, OR UNDERWEAR?NO LATEX ALLERGY : HAVE YOU EVER DEVELOPED ANY TYPE OF REACTION DURING OR AFTER DENTAL APPOINTMENT, VAGINAL/RECTAL EXAMINATION, SURGICAL PROCEDURE, OR ANY OTHER EXPOSURE?NO LATEX RISK : HAVE YOU EVER HAD ANY DIFFICULTY BREATHING OR HIVES AFTER EATING OR HANDLING ANY FRUITS, OR VEGETABLES; SUCH KIWI, BANANAS, STONE FRUITS, OR CHESTNUTSNO LATEX RISK : DO YOU HAVE A PREVIOUS PERSONAL HISTORY OF MORE THAN NINE SURGERIES, SPINA BIFIDA, OR REPEATED CATHERIZATIONS? NO LATEX RISK : ARE YOU FREQUENTLY EXPOSED TO LATEX PRODUCTS IN YOUR OCCUPATION?NO DATE ASKED : 03/06/2020 ALCOHOL SCREENING DID YOU HAVE A DRINK CONTAINING ALCOHOL IN THE PAST YEAR?YES HOW OFTEN DID YOU HAVE SIX OR MORE DRINKS ON ONE OCCASION IN THE PAST YEAR?NEVER (0 POINTS) HOW MANY DRINKS DID YOU HAVE ON A TYPICAL DAY WHEN YOU WERE DRINKING IN THE PAST YEAR?1 OR 2 (0 POINTS) HOW OFTEN DID YOU HAVE A DRINK CONTAINING ALCOHOL IN THE PAST YEAR?MONTHLY OR LESS (1 POINT) POINTS1 INTERPRETATIONNEGATIVE RECREATIONAL DRUG USE DRUG USE?NO CAFFEINE CAFFEINE USE?YES 1-2 SODA/DAY SEXUAL HX HAD SEX IN THE LAST 12 MONTHS (VAGINAL, ORAL, OR ANAL)?NO HAVE YOU EVER HAD AN STD?NO HINDU [id number] OTHER LANGUAGE LANGUAGES SPOKEN:PERUVIAN EDUCATION LEVEL OF EDUCATION:FINISHED HIGH SCHOOL LEARNING BARRIERS / SPECIAL NEEDS CHANGE FROM LAST VISIT?NO BARRIERS TO LEARNING?NO HEARING IMPAIRED?NO VISION IMPAIRED?YES COGNITIVELY IMPAIRED?NO :CORRECTIVE LENSES READINESS TO LEARN?YES LEARNING PREFERENCES?NO LEARNING CAPABILITIES PRESENT?YES EMOTIONAL BARRIERS?NO SPECIAL DEVICES?NO RUBY ON RAILS DEVELOPER NEEDED?NO DOMESTIC VIOLENCE DO YOU FEEL SAFE IN YOUR ENVIRONMENT?YES 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 EXERCISE: WALKS. MARITAL STATUS: . OTHERS AT HOME: SPOUSE. NEW PATIENT PAIN DIARY TODAY'S VISITNOTES 03/06/2020 PATIENT DESCRIBES PAIN :ACHING, HAVE IT ALL THE TIME, STABBING, SHOOTING FROM 0-10, WHAT LEVEL IS YOUR PAIN TODAY?7 PAIN CLINIC PFS, CLERGY, PUBLIC HEALTH REFERRALS PFS REFERRAL NEEDED?NO CLERGY REFERRAL NEEDED?NO PUBLIC HEALTH REFERRAL NEEDED?NO WAS THE PROVIDER NOTIFIED OF ANY PERTINENT INFO? N/A HAS THE PATIENT BEEN EDUCATED REGARDING HIS/HER PLAN OF CARE?YES HAS THE PATIENT BEEN EDUCATED REGARDING PAIN, THE RISK FOR PAIN, THE IMPORTANCE OF EFFECTIVE PAIN MANAGEMENT, AND THE PAIN ASSESSMENT PROCESS?YES ADVANCE DIRECTIVE ADVANCE DIRECTIVE DISCUSSED WITH PATIENT:YES HCP ON FILE AUDREY [phone] HOSPITALIZATION/MAJOR DIAGNOSTIC PROCEDURE SURGERY RELATED GUILLAIN BARRE REQUIRING PLASMAPHERESIS, IVIG, STEROIDS AND INTUBATION [facility] 09/2015 PNEUMONIA, ILEITIS 02/2018 REVIEW OF SYSTEMS REVIEWED BY: PROVIDER: BRITT RESENDIZ . CONSTITUTIONAL: ANY CHANGE IN YOUR MEDICAL CONDITION? NO . CHILLS NO . FEVER NO . INFECTION: DO YOU HAVE NEW INFECTIONS? NO . DO YOU HAVE HISTORY OF MRSA? NO . MUSCULOSKELETAL: ANY NEW PATTERNS OF PAIN OR NUMBNESS? YES, INCREASED PAIN TO NECK AND SHOULDERS . GASTROENTEROLOGY: ANY NEW CHANGE IN BOWEL CONTROL? NO . GENITOURINARY: ANY NEW CHANGE IN BLADDER CONTROL? NO . IS THERE A CHANCE YOU COULD BE ? NO . HEMATOLOGY/LYMPH: DO YOU TAKE ANY BLOOD THINNERS? (FOR EXAMPLE- COUMADIN, PLAVIX, AGGRENOX, PLATEL, PRADAXA, OR XARELTO) NO . WHEN WAS YOUR LAST DOSE? DATE: TIME: . NEUROLOGY: HAVE YOU FALLEN IN THE PAST 12 MONTHS? NO . ANY NEW EXTREMITY NUMBNESS OR WEAKNESS? NO . CARDIOLOGY: DO YOU HAVE A PACEMAKER OR DEFIBRILLATOR? NO . RESPIRATORY: HAVE YOU BEEN SICK IN THE PAST WEEK? NO . FEVER NO . FLU LIKE SYMPTOMS? NO . COUGH NO . INTEGUMENTARY: DO YOU HAVE ANY RASHES OR OPEN SORES? YES, SMALL OPEN AREA TO LEFT ARM . ALLERGIC/IMMUNO: ARE YOU ALLERGIC TO IV DYE? NO . ANY NEW ALLERGIES? NO . PSYCHIATRIC: DO YOU HAVE THOUGHTS OF HURTING YOURSELF OR SOMEONE ELSE? NO . ARE YOU ABUSED, NEGLECTED, OR IN AN UNSAFE ENVIRONMENT? NO . ENDOCRINOLOGY: ARE YOU DIABETIC? YES . OTHER: DO YOU NEED ANY PRESCRIPTIONS? NO . IF YES, PLEASE LIST: ____ . ANY NEW PROBLEMS WITH YOUR MEDICATIONS? NO . WHEN DID YOU LAST EAT? ____ . WHEN DID YOU LAST DRINK? ____ . WHAT DID YOU LAST DRINK? ____ . NAME OF PERSON DRIVING YOU HOME? ____ . DO YOU HAVE ANY OTHER QUESTIONS OR CONCERNS NO . VITAL SIGNS WT 167 LBS, HT 70 IN, BMI 23.96 INDEX, BP 162/90 MM HG, HR 69 /MIN, RR 16 /MIN, TEMP 98.0 F, OXYGEN SAT % 98%, SAFE IN ENV? (Y/N) YES, REVIEWED BY: BRANNON. EXAMINATION GENERAL EXAMINATION: GENERALAPPEARS UNCOMFORTABLE . PSYCH AFFECT NORMAL. LUNGS:CLEAR TO AUSCULTATION BILATERALLY, NO WHEEZES, RHONCHI, RALES. HEART:NO MURMURS, REGULAR RATE AND RHYTHM. MUSCULOSKELETAL:TRIGGER POINTS:, ELICITED WITH PALPATION OVER CERVICAL SPINOUS PROCESSES AND ACROSS THE TRAPEZIUS MUSCLES BILATERALLY. RESTRICTION OF ROM IS NOTED.. DIAGNOSTIC TESTS REVIEWED MRI C-SPINE-. ASSESSMENTS MYALGIA, OTHER SITE - M79.18 (PRIMARY) TREATMENT MYALGIA, OTHER SITE CONTINUE TIZANIDINE HCL TABLET, 2 MG, 1 TABLET NEEDED, ORALLY, EVERY 8 HRS CONTINUE GABAPENTIN CAPSULE, 300 MG, 1 CAPSULE, ORALLY, BEFORE BEDTIME CONTINUE SOMA TABLET, 350 MG, 1 TABLET NEEDED, ORALLY FOR SPASMS AND PAIN, EVERY 12 HOURS NEEDED MDD2 CONTINUE PERCOCET TABLET, 5-325 MG, 1 TABLET NEEDED, ORALLY, EVERY 6 HRS MDD4 NOTES: TPI W OUT STEROID NECK , ISTOP REGISTRY REVIEWED AND DEMONSTRATES COMPLLIANCE. (REF # ) BRINGS IN MEDICATIONS WHICH IS APPROPRIATE FOR WHAT WAS DISPENSED. RECENT URINE TOXICOLOGY REVIEWED. NO UNAUTHORIZED MEDICATIONS. NO ILLICIT SUBSTANCES AND PRESCRIBED MEDICATIONS WERE PRESENT. , RISKS OF NARCOTIC/OPIOD MEDICATIONS INCLUDES BUT IS NOT LIMITED TO RISK OF DEPENDANCE/DEVELOPMENT OF ADDICTION, MOOD DISTURBANCE AND DEPRESSION, OSTEOPOROSIS, HORMONAL AND LABIDAL CHANGES, RESPIRATORY DEPRESSION AND . PATIENT IS ADVISED NOT TO DRIVE OR DRINK ALCOHOL WHILE ON THESE MEDICATIONS. PREVENTIVE MEDICINE PAIN CLINIC TEACHING: PROCEDURE TEACHING REVIEWED INFORMATION ON TRIGGER POINT INJECTION PROCEDURE WITH PATIENT. ALSO REVIEWED PRE-PROCEDURE INSTRUCTIONS. PATIENT VERBALIZED AN UNDERSTANDING. SHRADDHA BONILLA 03/06/2020 1:21:33 PM > . PROCEDURE CODES FA211 ESTABILISHED PATIENT [facility] FACILITY CHARGE DISPOSITION & COMMUNICATION FOLLOW UP POST (REASON: TPI W OUT STEROID NECK) ELECTRONICALLY SIGNED BY MARTÍN GOLDBERG ON 03/07/2020 AT 09:09 AM EDT DISCLAIMER : THIS IS A VISIT SUMMARY EXTRACTED FROM THE [employer] CHART. IT IS NOT A COPY OF THE [employer] PROGRESS NOTE. MTDD
== END ==
LOC: M PAIN 08:45
PROVIDERS: ATTEND Nurse Practitioner Family
DX: M79.18 Myalgia, other site (principal); E11.9 Type 2 diabetes mellitus without complications; G43.909 Migraine, unspecified, not intractable, without status migrainosus; I10 Essential (primary) hypertension; K21.9 Gastro-esophageal reflux disease without esophagitis; Z98.84 Bariatric surgery status; Z79.82 Long term (current) use of aspirin; Z79.84 Long term (current) use of oral hypoglycemic drugs; Z79.899 Other long term (current) drug therapy

== ENCOUNTER → 2020-03-07 | Outpatient (CLI) | payer OTHER ==
[~2020-03-07] MED LIST changes: +BUPIVACAINE HCL 0.25% 10ML VIAL As Ordered ONE; +BUPIVACAINE HCL 0.25% 30ML VIAL As Ordered ONE
--- NOTE | 2020-03-09 23:57 | ECWPNPC ---
PATIENT NAME: HAI DAIGLE : 1965 GENDER: MALE VISIT DATE: 03/07/2020 DISCHARGE DATE: 03/07/20 1436 VISIT LOCKED DATE TIME: PHYSICIAN: BONY ANTOINE MD RESOURCE: BONY ANTOINE MD REASON FOR APPOINTMENT 1. TPI W OUT STEROID NECK - PAT COMPLETED HISTORY OF PRESENT ILLNESS HISTORY OF PRESENT ILLNESS: PAIN THE PATIENT DESCRIBES THE PAIN... FALL RISK SCREENING: SCREENING :NO FALLS REPORTED IN THE LAST YEAR CURRENT MEDICATIONS TAKING ASPIR-81 81 MG TABLET DELAYED RELEASE 1 TABLET ORALLY EVERY OTHER DAY, NOTES: 03/07/2020 6AM TAKING CITRACAL PLUS 400MG TABLET 2 TABS ORALLY AT BEDTIME, NOTES: 03/07 6AM TAKING FLECAINIDE ACETATE 50 MG TABLET 1 TABLET ORALLY EVERY 12 HRS, NOTES: 03/07 6AM TAKING VITAMIN D3 MAXIMUM STRENGTH 5000 UNIT CAPSULE 1 CAPSULE ORALLY DAILY, NOTES: 03/07 6AM TAKING VITAMIN B-12 500 MCG TABLET 1 TABLET ORALLY ONCE A DAY, NOTES: 03/07 6AM TAKING TRULICITY 0.75 MG/0.5ML SOLUTION PEN-INJECTOR SUBCUTANEOUS WEEKLY, NOTES: FRIDAY TAKING PRILOSEC 40 MG CAPSULE DELAYED RELEASE 1/2 CAPSULE ORALLY ONCE A DAY, NOTES: 03/07 6AM TAKING METFORMIN HCL 1000 MG TABLET 1 TABLET WITH MEALS ORALLY TWICE DAILY, NOTES: 03/06 6PM TAKING PROBIOTIC 1 CAPSULE 1 CAP ORALLY DAILY, NOTES: 03/07 6AM TAKING MAGNESIUM 400 MG CAPSULE 1 CAP ORALLY BID, NOTES: 03/07 6AM TAKING BISOPROLOL FUMARATE 5 MG TABLET 1 TABLET ORALLY ONCE A DAY, NOTES: 03/07 6AM TAKING LIPITOR 10 MG TABLET 1 TABLET ORALLY ONCE A DAY, NOTES: 03/07 6AM TAKING MULTI FOR HIM TABLET 2 TABS ORALLY DAILY, NOTES: 03/07 6AM TAKING TAMSULOSIN HCL 0.4 MG CAPSULE 1 CAPSULE ONCE A DAY, NOTES: 03/07 6AM TAKING ZOFRAN 8 MG TABLET 1 TABLET ORALLY Q 8 HOURS NEEDED, NOTES: 1 WEEK TAKING LOSARTAN POTASSIUM 25 MG TABLET 1 TABLET ORALLY ONCE A DAY, NOTES: 03/07 6AM TAKING DICYCLOMINE HCL 20 MG TABLET 1 TABLET NEEDED ORALLY QID, NOTES: 03/07 6AM TAKING COLESTIPOL HCL 1 GM TABLET 1 TABLET ORALLY BID, NOTES: 03/07 6AM TAKING MELATONIN 5 MG TABLET 1 TABLET AT BEDTIME NEEDED WITH FOOD ORALLY ONCE A DAY, NOTES: 03/06 8PM TAKING JARDIANCE 25 MG TABLET 1 TABLET ORALLY ONCE A DAY, NOTES: 03/06 5PM TAKING CYMBALTA 60 MG CAPSULE DELAYED RELEASE PARTICLES 1 CAPSULE ORALLY BEFORE BEDTIME, NOTES: 03/07 6AM TAKING TIZANIDINE HCL 2 MG TABLET 1 TABLET NEEDED ORALLY EVERY 8 HRS, NOTES: 03/07 6AM TAKING GABAPENTIN 300 MG CAPSULE 1 CAPSULE ORALLY BEFORE BEDTIME, NOTES: 03/07 6AM TAKING SOMA 350 MG TABLET 1 TABLET NEEDED ORALLY FOR SPASMS AND PAIN EVERY 12 HOURS NEEDED MDD2, NOTES: 03/06 8PM TAKING PERCOCET 5-325 MG TABLET 1 TABLET NEEDED ORALLY EVERY 6 HRS MDD4, NOTES: 03/06 10P TAKING POTASSIUM CHLORIDE 20 MEQ TABLET EXTENDED RELEASE 1 TABLET WITH FOOD ORALLY ONCE A DAY, NOTES: 03/07 6AM NOT-TAKING AMLODIPINE BESYLATE 2.5 MG TABLET 1 TABLET ORALLY ONCE A DAY NOT-TAKING POTASSIUM BICARB & CHLORIDE 20 MEQ PACKET 2 TABS ORALLY TWICE A DAY NOT-TAKING SPIRONOLACTONE 25 MG TABLET 1 TABLET ORALLY ONCE A DAY NOT-TAKING TOPIRAMATE 50 MG TABLET 1 TABLET ORALLY BEFORE BEDTIME NOT-TAKING COLCRYS 0.6 MG TABLET 1 TABLET PRN ORALLY ONCE A DAY NOT-TAKING PERCOCET 5-325 MG TABLET 1 TO 2 TAB ORALLY Q6H PRN MDD 4, NOTES: DUPLICATE NOT-TAKING ENTOCORT EC 3 MG CAPSULE DELAYED RELEASE PARTICLES DIRECTED ORALLY , NOTES: 2 WEEKS MEDICATION LIST REVIEWED AND RECONCILED WITH THE PATIENT PAST MEDICAL HISTORY DIABETES MIGRAINES PAF - INTERMITTENT A-FIB HTN GERD HIGH CHOLESTEROL GUILLAIN BARRE PNEUMONIA ILIEITIS A FIB WITH RVR DIVERTICULITIS BPH ED MULTIPLE GI PROBLEMS CHRON'S ALLERGIES N.K.D.A. SURGICAL HISTORY BOWEL RESECTION 2013 RIGHT KNEE ARTHROSCOPY, LEFT ALSO DONE YEARS LATER 2013 GASTRIC BYPASS RIGHT INGUINAL HERNIA REPAIR 06/24/18 CHOLECYSTECTOMY 11/2018 EGD 12/2019 EXPLORATORY LAP 12/2019 FAMILY HISTORY FATHER: , DIAGNOSED WITH DIABETES, OTHER MALIGNANT NEOPLASM OF UNSPECIFIED SITE MOTHER: , DIABETES, HYPERTENSION, OTHER SPECIFIED CONDITIONS INFLUENCING HEALTH STATUS SIBLINGS: ALIVE 4 BROTHER(S) , 2 SISTER(S) . 1 SON(S) , 1 DAUGHTER(S) - HEALTHY. 1 SISTER . 1 SISTER HAS ALOT OF MEDICAL ISSUES ALSO. SOCIAL HISTORY GENERAL: TOBACCO USE ARE YOU A:NONSMOKER LATEX QUESTIONNAIRE LATEX ALLERGY : HAVE YOU EVER DEVELOPED ANY TYPE OF REACTION AFTER HANDLING LATEX PRODUCTS SUCH RUBBER GLOVES, CONDOMS, DIAPHRAGMS, BALLOONS, SOCKS, OR UNDERWEAR?NO LATEX ALLERGY : HAVE YOU EVER DEVELOPED ANY TYPE OF REACTION DURING OR AFTER DENTAL APPOINTMENT, VAGINAL/RECTAL EXAMINATION, SURGICAL PROCEDURE, OR ANY OTHER EXPOSURE?NO LATEX RISK : HAVE YOU EVER HAD ANY DIFFICULTY BREATHING OR HIVES AFTER EATING OR HANDLING ANY FRUITS, OR VEGETABLES; SUCH KIWI, BANANAS, STONE FRUITS, OR CHESTNUTSNO LATEX RISK : DO YOU HAVE A PREVIOUS PERSONAL HISTORY OF MORE THAN NINE SURGERIES, SPINA BIFIDA, OR REPEATED CATHERIZATIONS? NO LATEX RISK : ARE YOU FREQUENTLY EXPOSED TO LATEX PRODUCTS IN YOUR OCCUPATION?NO DATE ASKED : 03/06/2020 ALCOHOL SCREENING DID YOU HAVE A DRINK CONTAINING ALCOHOL IN THE PAST YEAR?YES HOW OFTEN DID YOU HAVE SIX OR MORE DRINKS ON ONE OCCASION IN THE PAST YEAR?NEVER (0 POINTS) HOW MANY DRINKS DID YOU HAVE ON A TYPICAL DAY WHEN YOU WERE DRINKING IN THE PAST YEAR?1 OR 2 (0 POINTS) HOW OFTEN DID YOU HAVE A DRINK CONTAINING ALCOHOL IN THE PAST YEAR?MONTHLY OR LESS (1 POINT) POINTS1 INTERPRETATIONNEGATIVE RECREATIONAL DRUG USE DRUG USE?NO CAFFEINE CAFFEINE USE?YES 1-2 SODA/DAY SEXUAL HX HAD SEX IN THE LAST 12 MONTHS (VAGINAL, ORAL, OR ANAL)?NO HAVE YOU EVER HAD AN STD?NO RESTORATION [id number] OTHER LANGUAGE LANGUAGES SPOKEN:ROMANSH EDUCATION LEVEL OF EDUCATION:FINISHED HIGH SCHOOL LEARNING BARRIERS / SPECIAL NEEDS CHANGE FROM LAST VISIT?NO BARRIERS TO LEARNING?NO HEARING IMPAIRED?NO VISION IMPAIRED?YES COGNITIVELY IMPAIRED?NO :CORRECTIVE LENSES READINESS TO LEARN?YES LEARNING PREFERENCES?NO LEARNING CAPABILITIES PRESENT?YES EMOTIONAL BARRIERS?NO SPECIAL DEVICES?NO JOURNEYMAN WIREMAN NEEDED?NO DOMESTIC VIOLENCE DO YOU FEEL SAFE IN YOUR ENVIRONMENT?YES 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 EXERCISE: WALKS. MARITAL STATUS: . OTHERS AT HOME: SPOUSE. NEW PATIENT PAIN DIARY TODAY'S VISIT 03/07/2020 PATIENT DESCRIBES PAIN :ACHING, BURNING, HAVE IT ALL THE TIME, STABBING FROM 0-10, WHAT LEVEL IS YOUR PAIN TODAY?8 PAIN CLINIC PFS, CLERGY, PUBLIC HEALTH REFERRALS PFS REFERRAL NEEDED?NO CLERGY REFERRAL NEEDED?NO PUBLIC HEALTH REFERRAL NEEDED?NO WAS THE PROVIDER NOTIFIED OF ANY PERTINENT INFO?YES N/A HAS THE PATIENT BEEN EDUCATED REGARDING HIS/HER PLAN OF CARE?YES HAS THE PATIENT BEEN EDUCATED REGARDING PAIN, THE RISK FOR PAIN, THE IMPORTANCE OF EFFECTIVE PAIN MANAGEMENT, AND THE PAIN ASSESSMENT PROCESS?YES ADVANCE DIRECTIVE ADVANCE DIRECTIVE DISCUSSED WITH PATIENT:YES HCP ON FILE - , AUDREY DAIGLE [phone] HOSPITALIZATION/MAJOR DIAGNOSTIC PROCEDURE SURGERY RELATED GUILLAIN BARRE REQUIRING PLASMAPHERESIS, IVIG, STEROIDS AND INTUBATION [facility] 09/2015 PNEUMONIA, ILEITIS 02/2018 REVIEW OF SYSTEMS REVIEWED BY: PROVIDER: BONY ANTOINE MD . CONSTITUTIONAL: ANY CHANGE IN YOUR MEDICAL CONDITION? CROHNS DISEASE . CHILLS NO . FEVER NO . INFECTION: DO YOU HAVE NEW INFECTIONS? NO . DO YOU HAVE HISTORY OF MRSA? NO . MUSCULOSKELETAL: ANY NEW PATTERNS OF PAIN OR NUMBNESS? NO . GASTROENTEROLOGY: ANY NEW CHANGE IN BOWEL CONTROL? NO . GENITOURINARY: ANY NEW CHANGE IN BLADDER CONTROL? NO . IS THERE A CHANCE YOU COULD BE ? NO . HEMATOLOGY/LYMPH: DO YOU TAKE ANY BLOOD THINNERS? (FOR EXAMPLE- COUMADIN, PLAVIX, AGGRENOX, PLATEL, PRADAXA, OR XARELTO) NO . WHEN WAS YOUR LAST DOSE? DATE: TIME: . NEUROLOGY: HAVE YOU FALLEN IN THE PAST 12 MONTHS? NO . ANY NEW EXTREMITY NUMBNESS OR WEAKNESS? NO . CARDIOLOGY: DO YOU HAVE A PACEMAKER OR DEFIBRILLATOR? NO . RESPIRATORY: HAVE YOU BEEN SICK IN THE PAST WEEK? NO . FEVER NO . FLU LIKE SYMPTOMS? NO . COUGH NO . INTEGUMENTARY: DO YOU HAVE ANY RASHES OR OPEN SORES? NO . ALLERGIC/IMMUNO: ARE YOU ALLERGIC TO IV DYE? NO . ANY NEW ALLERGIES? NO . PSYCHIATRIC: DO YOU HAVE THOUGHTS OF HURTING YOURSELF OR SOMEONE ELSE? NO . ARE YOU ABUSED, NEGLECTED, OR IN AN UNSAFE ENVIRONMENT? NO . ENDOCRINOLOGY: ARE YOU DIABETIC? NO . OTHER: DO YOU NEED ANY PRESCRIPTIONS? NO . IF YES, PLEASE LIST: ____ . ANY NEW PROBLEMS WITH YOUR MEDICATIONS? NO . WHEN DID YOU LAST EAT? 03/07 6AM . WHEN DID YOU LAST DRINK? 03/07 8AM . WHAT DID YOU LAST DRINK? WATER . NAME OF PERSON DRIVING YOU HOME? MADDY - DAUGHTER . DO YOU HAVE ANY OTHER QUESTIONS OR CONCERNS NO . VITAL SIGNS WT 169 LBS, HT 70 IN, BMI 24.25 INDEX, BP 155/84 MM HG, HR 66 /MIN, RR 18 /MIN, TEMP 97.8 F, OXYGEN SAT % 94%, SAFE IN ENV? (Y/N) Y, NA INITIALS AW 1240, REVIEWED BY: DS. 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 MYALGIA 2. PAIN AT LEFT NECK AREA. POST PROCEDURE DIAGNOSIS 1. MYALGIA 2. PAIN AT LEFT NECK AREA PROCEDURE TRIGGER POINT INJECTION AT LEFT NECK AREA SURGEON DR. BONY ANTOINE BUDGET ANALYST NONE ANESTHESIA LOCAL PRE PROCEDURE NOTE 54-YEAR-OLD PATIENT WITH HISTORY OF CHRONIC PAIN AT LEFT NECK AREA. I EVALUATED THE PATIENT AND REVIEWED THE CHART. THERE IS EVIDENCE OF BANDS OF TISSUE WITH RESTRICTION OF MOVEMENT AND PRESENCE OF TRIGGER POINT AT THE LEFT NECK AREA. I WENT OVER THE RISKS, ALTERNATIVES, AND BENEFITS ASSOCIATED WITH THIS PROCEDURE. THE PATIENT WOULD LIKE TO PROCEED AND GAVE CONSENT TO PERFORM THE PROCEDURE. THE PATIENT DENIES UNEXPLAINABLE WEIGHT LOSS, FEVER, CHILLS, OR NEW CHANGES IN URINARY OR BOWEL CONTROL. DESCRIPTION OF PROCEDURE THE PATIENT WAS BROUGHT TO THE PROCEDURE ROOM AND PLACED IN THE SITTING POSITION. THE AREA WAS CLEANED WITH ALCOHOL. THE PROCEDURE WAS DONE USING ASEPTIC STERILE TECHNIQUES. I CHECKED LATERALITY AND THE LEVEL WHERE THE PROCEDURE WAS GOING TO BE PERFORMED WITH THE PATIENT AND THE SUPPORTING STAFF AT THE MOMENT OF THE TIME OUT IN THE PROCEDURE ROOM. USING A 25-GAUGE NEEDLE, TRIGGER POINTS WERE INJECTED INTO THE LEFT NECK AREA WITH A TOTAL OF 40 ML OF BUPIVACAINE 0.25%. AGREED WITH THE PATIENT THE PROCEDURE WAS DONE WITHOUT STEROIDS. THERE WAS NO EVIDENCE OF BLOOD, PARESTHESIA OR CEREBROSPINAL FLUID DURING THE PROCEDURE. THE PATIENT WAS SENT TO THE RECOVERY ROOM. THE PATIENT WAS MOVING THE EXTREMITIES AND DOING WELL. THERE WAS NO COMPLICATION DURING THE PROCEDURE. POST PROCEDURE NOTE THE PATIENT WILL BE SEEN IN A FOLLOW UP IN THE NEXT FEW WEEKS. I AM LOOKING FOR LONG LASTING PAIN RELIEF FOR THE PATIENT WITH THIS INJECTION. INSTRUCTIONS WERE GIVEN, QUESTIONS WERE ANSWERED, AND THE PATIENT EXPRESSED UNDERSTANDING AND AGREED WITH THE PLAN. I, SELAM VARELA , DOCUMENTED THE ABOVE INFORMATION ACTING A SCRIBE FOR DR. ANTOINE. I HAVE REVIEWED THE ABOVE DOCUMENT, WRITTEN BY FLORESITA GRANDA, AND I VERIFY THAT IT IS ACCURATE. PROCEDURE CODES 76381 INJECT TRIGGER POINT, 1 OR 2 DISPOSITION & COMMUNICATION FOLLOW UP F/UP FUNDRAISER (REASON: POST-PROCEDURE F/UP) ELECTRONICALLY SIGNED BY BONY ANTOINE MD, MD ON 03/09/2020 AT 01:32 PM EDT DISCLAIMER : THIS IS A VISIT SUMMARY EXTRACTED FROM THE [employer] CHART. IT IS NOT A COPY OF THE [employer] PROGRESS NOTE. TRISTIND
== END ==
LOC: M PAIN 12:45
PROVIDERS: ATTEND Anesthesiology
DX: M79.18 Myalgia, other site (principal); E11.9 Type 2 diabetes mellitus without complications; G43.909 Migraine, unspecified, not intractable, without status migrainosus; I10 Essential (primary) hypertension; K21.9 Gastro-esophageal reflux disease without esophagitis; Z98.84 Bariatric surgery status; Z79.82 Long term (current) use of aspirin; Z79.84 Long term (current) use of oral hypoglycemic drugs; Z79.899 Other long term (current) drug therapy

== ENCOUNTER → 2020-03-13 | Outpatient (CLI) | payer OTHER ==
[~2020-03-13] MED LIST changes: -BUPIVACAINE HCL 0.25% 10ML VIAL As Ordered ONE; -BUPIVACAINE HCL 0.25% 30ML VIAL As Ordered ONE
--- NOTE | 2020-03-15 00:19 | ECWPNPC ---
PATIENT NAME: HAI DAIGLE : 1965 GENDER: MALE VISIT DATE: 03/13/2020 DISCHARGE DATE: 03/13/20 1147 VISIT LOCKED DATE TIME: PHYSICIAN: BRITT LANCASTER RESOURCE: BRITT LANCASTER REASON FOR APPOINTMENT 1. FOLLOW UP FRIDAY WITH BRITT HISTORY OF PRESENT ILLNESS HISTORY OF PRESENT ILLNESS: HERE FOR POST PROCEDURE FOLLOW-UP. HAD TRIGGER POINT INJECTIONS WITHOUT STEROIDS IN THE UPPER BACK AREA WITHOUT IMPROVEMENT LAST WEEK. HAS BEEN HAVING SEVERE NECK AND LEFT ARM PAIN OVER THE PAST 3 MONTHS. RATING PAIN LEVEL AN 8/10 VAS. PAIN IS AGGRAVATED WITH RANGE OF JOINT MOTION OF THE NECK. REPORTS LEFT ARM AND HAND WEAKNESS. REVIEWED MRI AND DISCUSSED TREATMENT OPTION. REVIEWED CASE WITH DR. ANTOINE WHO IS SUGGESTING A CERVICAL EPIDURAL STEROID INJECTION. IF NO IMPROVEMENT POST PROCEDURE WE WILL CONSIDER MRI OF CERVICAL SPINE. PAIN THE PATIENT DESCRIBES THE PAIN... FALL RISK SCREENING: SCREENING :NO FALLS REPORTED IN THE LAST YEAR CURRENT MEDICATIONS TAKING ASPIR-81 81 MG TABLET DELAYED RELEASE 1 TABLET ORALLY EVERY OTHER DAY TAKING CITRACAL PLUS 400MG TABLET 2 TABS ORALLY AT BEDTIME TAKING FLECAINIDE ACETATE 50 MG TABLET 1 TABLET ORALLY EVERY 12 HRS TAKING VITAMIN D3 MAXIMUM STRENGTH 5000 UNIT CAPSULE 1 CAPSULE ORALLY DAILY TAKING VITAMIN B-12 500 MCG TABLET 1 TABLET ORALLY ONCE A DAY TAKING TRULICITY 0.75 MG/0.5ML SOLUTION PEN-INJECTOR SUBCUTANEOUS WEEKLY TAKING PRILOSEC 40 MG CAPSULE DELAYED RELEASE 1/2 CAPSULE ORALLY ONCE A DAY TAKING METFORMIN HCL 1000 MG TABLET 1 TABLET WITH MEALS ORALLY TWICE DAILY TAKING PROBIOTIC 1 CAPSULE 1 CAP ORALLY DAILY TAKING MAGNESIUM 400 MG CAPSULE 1 CAP ORALLY BID TAKING BISOPROLOL FUMARATE 5 MG TABLET 1 TABLET ORALLY ONCE A DAY TAKING LIPITOR 10 MG TABLET 1 TABLET ORALLY ONCE A DAY TAKING MULTI FOR HIM TABLET 2 TABS ORALLY DAILY TAKING TAMSULOSIN HCL 0.4 MG CAPSULE 1 CAPSULE ONCE A DAY TAKING ZOFRAN 8 MG TABLET 1 TABLET ORALLY Q 8 HOURS NEEDED TAKING LOSARTAN POTASSIUM 25 MG TABLET 1 TABLET ORALLY ONCE A DAY TAKING DICYCLOMINE HCL 20 MG TABLET 1 TABLET NEEDED ORALLY QID TAKING COLESTIPOL HCL 1 GM TABLET 1 TABLET ORALLY BID TAKING MELATONIN 5 MG TABLET 1 TABLET AT BEDTIME NEEDED WITH FOOD ORALLY ONCE A DAY TAKING JARDIANCE 25 MG TABLET 1 TABLET ORALLY ONCE A DAY TAKING CYMBALTA 60 MG CAPSULE DELAYED RELEASE PARTICLES 1 CAPSULE ORALLY BEFORE BEDTIME TAKING TIZANIDINE HCL 2 MG TABLET 1 TABLET NEEDED ORALLY EVERY 8 HRS TAKING GABAPENTIN 300 MG CAPSULE 1 CAPSULE ORALLY BEFORE BEDTIME TAKING PERCOCET 5-325 MG TABLET 1 TABLET NEEDED ORALLY EVERY 6 HRS MDD4 TAKING POTASSIUM CHLORIDE 20 MEQ TABLET EXTENDED RELEASE 1 TABLET WITH FOOD ORALLY ONCE A DAY TAKING SOMA 350 MG TABLET 1 TABLET NEEDED ORALLY FOR SPASMS AND PAIN EVERY 12 HOURS NEEDED MDD2 TAKING COLCRYS 0.6 MG TABLET 1 TABLET PRN ORALLY ONCE A DAY NOT-TAKING AMLODIPINE BESYLATE 2.5 MG TABLET 1 TABLET ORALLY ONCE A DAY NOT-TAKING POTASSIUM BICARB & CHLORIDE 20 MEQ PACKET 2 TABS ORALLY TWICE A DAY NOT-TAKING SPIRONOLACTONE 25 MG TABLET 1 TABLET ORALLY ONCE A DAY NOT-TAKING TOPIRAMATE 50 MG TABLET 1 TABLET ORALLY BEFORE BEDTIME NOT-TAKING PERCOCET 5-325 MG TABLET 1 TO 2 TAB ORALLY Q6H PRN MDD 4, NOTES: DUPLICATE NOT-TAKING ENTOCORT EC 3 MG CAPSULE DELAYED RELEASE PARTICLES DIRECTED ORALLY , NOTES: 2 WEEKS MEDICATION LIST REVIEWED AND RECONCILED WITH THE PATIENT PAST MEDICAL HISTORY DIABETES MIGRAINES PAF - INTERMITTENT A-FIB HTN GERD HIGH CHOLESTEROL GUILLAIN BARRE PNEUMONIA ILIEITIS A FIB WITH RVR DIVERTICULITIS BPH ED MULTIPLE GI PROBLEMS CHRON'S ALLERGIES SURGICAL GLUE: RASH, ITCHING - ALLERGY SURGICAL HISTORY BOWEL RESECTION 2013 RIGHT KNEE ARTHROSCOPY, LEFT ALSO DONE YEARS LATER 2013 GASTRIC BYPASS RIGHT INGUINAL HERNIA REPAIR 06/24/18 CHOLECYSTECTOMY 11/2018 EGD 12/2019 EXPLORATORY LAP 12/2019 FAMILY HISTORY FATHER: , DIAGNOSED WITH DIABETES, OTHER MALIGNANT NEOPLASM OF UNSPECIFIED SITE MOTHER: , DIABETES, HYPERTENSION, OTHER SPECIFIED CONDITIONS INFLUENCING HEALTH STATUS SIBLINGS: ALIVE 4 BROTHER(S) , 2 SISTER(S) . 1 SON(S) , 1 DAUGHTER(S) - HEALTHY. 1 SISTER . 1 SISTER HAS ALOT OF MEDICAL ISSUES ALSO. SOCIAL HISTORY GENERAL: TOBACCO USE ARE YOU A:NONSMOKER LATEX QUESTIONNAIRE LATEX ALLERGY : HAVE YOU EVER DEVELOPED ANY TYPE OF REACTION AFTER HANDLING LATEX PRODUCTS SUCH RUBBER GLOVES, CONDOMS, DIAPHRAGMS, BALLOONS, SOCKS, OR UNDERWEAR?NO LATEX ALLERGY : HAVE YOU EVER DEVELOPED ANY TYPE OF REACTION DURING OR AFTER DENTAL APPOINTMENT, VAGINAL/RECTAL EXAMINATION, SURGICAL PROCEDURE, OR ANY OTHER EXPOSURE?NO LATEX RISK : HAVE YOU EVER HAD ANY DIFFICULTY BREATHING OR HIVES AFTER EATING OR HANDLING ANY FRUITS, OR VEGETABLES; SUCH KIWI, BANANAS, STONE FRUITS, OR CHESTNUTSNO LATEX RISK : DO YOU HAVE A PREVIOUS PERSONAL HISTORY OF MORE THAN NINE SURGERIES, SPINA BIFIDA, OR REPEATED CATHERIZATIONS? NO LATEX RISK : ARE YOU FREQUENTLY EXPOSED TO LATEX PRODUCTS IN YOUR OCCUPATION?NO DATE ASKED : 03/06/2020 ALCOHOL SCREENING DID YOU HAVE A DRINK CONTAINING ALCOHOL IN THE PAST YEAR?YES HOW OFTEN DID YOU HAVE SIX OR MORE DRINKS ON ONE OCCASION IN THE PAST YEAR?NEVER (0 POINTS) HOW MANY DRINKS DID YOU HAVE ON A TYPICAL DAY WHEN YOU WERE DRINKING IN THE PAST YEAR?1 OR 2 (0 POINTS) HOW OFTEN DID YOU HAVE A DRINK CONTAINING ALCOHOL IN THE PAST YEAR?MONTHLY OR LESS (1 POINT) POINTS1 INTERPRETATIONNEGATIVE RECREATIONAL DRUG USE DRUG USE?NO CAFFEINE CAFFEINE USE?YES 1-2 SODA/DAY SEXUAL HX HAD SEX IN THE LAST 12 MONTHS (VAGINAL, ORAL, OR ANAL)?NO HAVE YOU EVER HAD AN STD?NO JEW [id number] OTHER LANGUAGE LANGUAGES SPOKEN:[place]ER EDUCATION LEVEL OF EDUCATION:FINISHED HIGH SCHOOL LEARNING BARRIERS / SPECIAL NEEDS CHANGE FROM LAST VISIT?NO BARRIERS TO LEARNING?NO HEARING IMPAIRED?NO VISION IMPAIRED?YES COGNITIVELY IMPAIRED?NO :CORRECTIVE LENSES READINESS TO LEARN?YES LEARNING PREFERENCES?NO LEARNING CAPABILITIES PRESENT?YES EMOTIONAL BARRIERS?NO SPECIAL DEVICES?NO PARK INTERPRETIVE SPECIALIST NEEDED?NO DOMESTIC VIOLENCE DO YOU FEEL SAFE IN YOUR ENVIRONMENT?YES 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 EXERCISE: WALKS. MARITAL STATUS: . OTHERS AT HOME: SPOUSE. NEW PATIENT PAIN DIARY TODAY'S VISITNOTES 03/13/2020 PATIENT DESCRIBES PAIN :ACHING, BURNING, HAVE IT ALL THE TIME, STABBING FROM 0-10, WHAT LEVEL IS YOUR PAIN TODAY?8 PRECIPITATING FACTORS WORKING ALLEVIATING FACTORS INJECTIONS IMPACT ON FUNCTION DIFFICULTY WITH WORKING. PAIN CLINIC PFS, CLERGY, PUBLIC HEALTH REFERRALS PFS REFERRAL NEEDED?NO CLERGY REFERRAL NEEDED?NO PUBLIC HEALTH REFERRAL NEEDED?NO WAS THE PROVIDER NOTIFIED OF ANY PERTINENT INFO?YES N/A HAS THE PATIENT BEEN EDUCATED REGARDING HIS/HER PLAN OF CARE?YES HAS THE PATIENT BEEN EDUCATED REGARDING PAIN, THE RISK FOR PAIN, THE IMPORTANCE OF EFFECTIVE PAIN MANAGEMENT, AND THE PAIN ASSESSMENT PROCESS?YES ADVANCE DIRECTIVE ADVANCE DIRECTIVE DISCUSSED WITH PATIENT:YES HCP ON FILE - , AUDREY DAIGLE [phone] HOSPITALIZATION/MAJOR DIAGNOSTIC PROCEDURE SURGERY RELATED GUILLAIN BARRE REQUIRING PLASMAPHERESIS, IVIG, STEROIDS AND INTUBATION [facility] 09/2015 PNEUMONIA, ILEITIS 02/2018 REVIEW OF SYSTEMS REVIEWED BY: PROVIDER: BRITT RESENDIZ . CONSTITUTIONAL: ANY CHANGE IN YOUR MEDICAL CONDITION? NO . CHILLS NO . FEVER NO . INFECTION: DO YOU HAVE NEW INFECTIONS? NO . DO YOU HAVE HISTORY OF MRSA? NO . MUSCULOSKELETAL: ANY NEW PATTERNS OF PAIN OR NUMBNESS? NO . GASTROENTEROLOGY: ANY NEW CHANGE IN BOWEL CONTROL? NO . GENITOURINARY: ANY NEW CHANGE IN BLADDER CONTROL? NO . IS THERE A CHANCE YOU COULD BE ? NO . HEMATOLOGY/LYMPH: DO YOU TAKE ANY BLOOD THINNERS? (FOR EXAMPLE- COUMADIN, PLAVIX, AGGRENOX, PLATEL, PRADAXA, OR XARELTO) NO . WHEN WAS YOUR LAST DOSE? DATE: TIME: . NEUROLOGY: HAVE YOU FALLEN IN THE PAST 12 MONTHS? NO . ANY NEW EXTREMITY NUMBNESS OR WEAKNESS? NO . CARDIOLOGY: DO YOU HAVE A PACEMAKER OR DEFIBRILLATOR? NO . RESPIRATORY: HAVE YOU BEEN SICK IN THE PAST WEEK? NO . FEVER NO . FLU LIKE SYMPTOMS? NO . COUGH NO . INTEGUMENTARY: DO YOU HAVE ANY RASHES OR OPEN SORES? NO . ALLERGIC/IMMUNO: ARE YOU ALLERGIC TO IV DYE? NO . ANY NEW ALLERGIES? YES, SURGICAL GLUE . PSYCHIATRIC: DO YOU HAVE THOUGHTS OF HURTING YOURSELF OR SOMEONE ELSE? NO . ARE YOU ABUSED, NEGLECTED, OR IN AN UNSAFE ENVIRONMENT? NO . ENDOCRINOLOGY: ARE YOU DIABETIC? YES . OTHER: DO YOU NEED ANY PRESCRIPTIONS? YES . IF YES, PLEASE LIST: ____SOMA . ANY NEW PROBLEMS WITH YOUR MEDICATIONS? NO . WHEN DID YOU LAST EAT? ____ . WHEN DID YOU LAST DRINK? ____ . WHAT DID YOU LAST DRINK? ____ . NAME OF PERSON DRIVING YOU HOME? ____ . DO YOU HAVE ANY OTHER QUESTIONS OR CONCERNS YES, WOULD LIKE CERVICAL EPIDURAL PROCEDURE, HOPING FOR 03/20/2020DUE TO STOPPING PREDNISONE AND HAVING TO START REMICAIDE SOON . VITAL SIGNS WT 173.4 LBS, HT 70 IN, BMI 24.88 INDEX, BP 156/76 MM HG, HR 85 /MIN, RR 18 /MIN, TEMP 97.0 F, OXYGEN SAT % 97%, SAFE IN ENV? (Y/N) YES, NA INITIALS AW 1031, REVIEWED BY: BRANNON. EXAMINATION GENERAL EXAMINATION: LUNGS: LUNG SOUNDS ARE CLEAR . HEART: HEART RATE REGULAR . MUSCULOSKELETAL:RANGE OF JOINT MOTION, LEFT ARM LIMITED TO SHOULDER HEIGHT. CERVICAL:+ FOR PAIN WITH PALPATION OF CERVICAL SPINE. + FOR PAIN WITH PALPATION OF CERVICAL PARASPINALS.. NEUROLOGIC EXAM:WEAKNESS NOTED OVER LEFT ARM . DIAGNOSTIC TESTS REVIEWEDCERVICAL MRI -12/2018. ASSESSMENTS CERVICAL DISC DISORDER WITH RADICULOPATHY OF CERVICAL REGION - M50.10 (PRIMARY) TREATMENT CERVICAL DISC DISORDER WITH RADICULOPATHY OF CERVICAL REGION CONTINUE CYMBALTA CAPSULE DELAYED RELEASE PARTICLES, 60 MG, 1 CAPSULE, ORALLY, BEFORE BEDTIME CONTINUE TIZANIDINE HCL TABLET, 2 MG, 1 TABLET NEEDED, ORALLY, EVERY 8 HRS CONTINUE GABAPENTIN CAPSULE, 300 MG, 1 CAPSULE, ORALLY, BEFORE BEDTIME CONTINUE PERCOCET TABLET, 5-325 MG, 1 TABLET NEEDED, ORALLY, EVERY 6 HRS MDD4 CONTINUE SOMA TABLET, 350 MG, 1 TABLET NEEDED, ORALLY FOR SPASMS AND PAIN, EVERY 12 HOURS NEEDED MDD2 NOTES: C4/5 KILO-03/20/2020 , ISTOP REGISTRY REVIEWED AND DEMONSTRATES COMPLLIANCE.RECENT URINE TOXICOLOGY REVIEWED. NO UNAUTHORIZED MEDICATIONS. NO ILLICIT SUBSTANCES AND PRESCRIBED MEDICATIONS WERE PRESENT. PREVENTIVE MEDICINE PAIN CLINIC TEACHING: PROCEDURE TEACHING REVIEWED INFORMATION ON CERVICAL EPIDURAL STEROID INJECTION PROCEDURE WITH PATIENT. ALSO REVIEWED PRE-PROCEDURE INSTRUCTIONS. PATIENT VERBALIZED AN UNDERSTANDING. SHRADDHA BONILLA 03/13/2020 11:15:52 AM > . PROCEDURE CODES FA211 ESTABILISHED PATIENT [facility] CHARGE DISPOSITION & COMMUNICATION FOLLOW UP C4/5 KILO-SCHEDULE MON 03/20/2020 (REASON: POST PROC CERVICAL) ELECTRONICALLY SIGNED BY MARTÍN GOLDBERG ON 03/14/2020 AT 12:59 PM EDT DISCLAIMER : THIS IS A VISIT SUMMARY EXTRACTED FROM THE [facility] CHART. IT IS NOT A COPY OF THE [facility] PROGRESS NOTE. TERESA
== END ==
LOC: M PAIN 10:30
PROVIDERS: ATTEND Nurse Practitioner Family
DX: M50.10 Cervical disc disorder with radiculopathy, unspecified cervical region (principal); E11.9 Type 2 diabetes mellitus without complications; G43.909 Migraine, unspecified, not intractable, without status migrainosus; I10 Essential (primary) hypertension; K21.9 Gastro-esophageal reflux disease without esophagitis; Z98.84 Bariatric surgery status; Z91.09 Other allergy status, other than to drugs and biological substances; Z79.82 Long term (current) use of aspirin; Z79.84 Long term (current) use of oral hypoglycemic drugs; Z79.899 Other long term (current) drug therapy

== ENCOUNTER → 2020-03-17 | Outpatient (CLI) | payer OTHER | LOC: M LABSMTC 10:17 | PROVIDERS: ATTEND Family Medicine | DX: Z11.59 Encounter for screening for other viral diseases (principal); Z20.828 Contact with and (suspected) exposure to other viral communicable diseases ==

== ENCOUNTER → 2020-03-20 | Outpatient (CLI) | payer OTHER ==
[~2020-03-20] MED LIST changes: +ISOVUE-M 300 61% 15ML VIAL As Ordered ONE; +LIDOCAINE 1% SDV 30ML VIAL As Ordered ONE; +dexameTHASONE 10MG/1ML VIAL PRES.FREE (J1100 PER 1MG) As Ordered ONE; +diazePAM 5 MG TAB As Ordered ONE; +oxyCODONE 5MG TAB As Ordered ONE
--- NOTE | 2020-03-20 15:31 | REP ---
C-ARM VIEWS CERVICAL SPINE: CLINICAL HISTORY: Pain. Three C-arm views of the lower cervical spine performed during epidural injection performed by Dr. Barrientos. A needle is seen at the cervicothoracic junction. A small amount of contrast is injected. 15 seconds of fluoroscopy time is utilized. Electronically Signed by Tom Buck MD 03/20/2020 04:24 P
--- NOTE | 2020-03-22 00:54 | ECWPNPC ---
PATIENT NAME: HAI DAIGLE : 1965 GENDER: MALE VISIT DATE: 03/20/2020 DISCHARGE DATE: 03/20/20 1524 VISIT LOCKED DATE TIME: PHYSICIAN: BONY ANTOINE MD RESOURCE: BONY ANTOINE MD REASON FOR APPOINTMENT 1. KILO-SCHEDULE MON 03/20/2020 PAT DONE HISTORY OF PRESENT ILLNESS HISTORY OF PRESENT ILLNESS: PAIN THE PATIENT DESCRIBES THE PAIN... FALL RISK SCREENING: SCREENING :NO FALLS REPORTED IN THE LAST YEAR CURRENT MEDICATIONS TAKING ASPIR-81 81 MG TABLET DELAYED RELEASE 1 TABLET ORALLY EVERY OTHER DAY, NOTES: 03/19/2020 0500 TAKING CITRACAL PLUS 400MG TABLET 2 TABS ORALLY AT BEDTIME, NOTES: 03/19/20202099 TAKING FLECAINIDE ACETATE 50 MG TABLET 1 TABLET ORALLY EVERY 12 HRS, NOTES: 03/20/2020 050 TAKING VITAMIN D3 MAXIMUM STRENGTH 5000 UNIT CAPSULE 1 CAPSULE ORALLY DAILY, NOTES: 03/20/2020 050 TAKING VITAMIN B-12 500 MCG TABLET 1 TABLET ORALLY ONCE A DAY, NOTES: 03/20/2020 050 TAKING TRULICITY 0.75 MG/0.5ML SOLUTION PEN-INJECTOR SUBCUTANEOUS WEEKLY, NOTES: FRIDAY TAKING PRILOSEC 40 MG CAPSULE DELAYED RELEASE 1/2 CAPSULE ORALLY ONCE A DAY, NOTES: 03/20/2020 050 TAKING METFORMIN HCL 1000 MG TABLET 1 TABLET WITH MEALS ORALLY TWICE DAILY, NOTES: 03/19/2020 1800 TAKING PROBIOTIC 1 CAPSULE 1 CAP ORALLY DAILY, NOTES: 03/20/2020 0500 TAKING MAGNESIUM 400 MG CAPSULE 1 CAP ORALLY BID, NOTES: 03/20/2020 0500 TAKING BISOPROLOL FUMARATE 5 MG TABLET 1 TABLET ORALLY ONCE A DAY, NOTES: 03/20/2020 050 TAKING LIPITOR 10 MG TABLET 1 TABLET ORALLY ONCE A DAY, NOTES: 03/19/2020 2100 TAKING MULTI FOR HIM TABLET 2 TABS ORALLY DAILY, NOTES: 03/20/2020 0500 TAKING TAMSULOSIN HCL 0.4 MG CAPSULE 1 CAPSULE ONCE A DAY, NOTES: 03/20/2020 050 TAKING ZOFRAN 8 MG TABLET 1 TABLET ORALLY Q 8 HOURS NEEDED, NOTES: PRN TAKING LOSARTAN POTASSIUM 25 MG TABLET 1 TABLET ORALLY ONCE A DAY, NOTES: 03/20/2020 0500 TAKING DICYCLOMINE HCL 20 MG TABLET 1 TABLET NEEDED ORALLY QID, NOTES: PRN TAKING COLESTIPOL HCL 1 GM TABLET 1 TABLET ORALLY BID, NOTES: 03/20/2020 050 TAKING MELATONIN 5 MG TABLET 1 TABLET AT BEDTIME NEEDED WITH FOOD ORALLY ONCE A DAY, NOTES: 03/19/20202099 TAKING JARDIANCE 25 MG TABLET 1 TABLET ORALLY ONCE A DAY, NOTES: 03/19/2020 050 TAKING POTASSIUM CHLORIDE 20 MEQ TABLET EXTENDED RELEASE 1 TABLET WITH FOOD ORALLY ONCE A DAY, NOTES: 03/20/2020 050 TAKING COLCRYS 0.6 MG TABLET 1 TABLET PRN ORALLY ONCE A DAY, NOTES: PRN TAKING CYMBALTA 60 MG CAPSULE DELAYED RELEASE PARTICLES 1 CAPSULE ORALLY BEFORE BEDTIME, NOTES: 03/19/20202099 TAKING TIZANIDINE HCL 2 MG TABLET 1 TABLET NEEDED ORALLY EVERY 8 HRS, NOTES: 03/19/20202099 TAKING GABAPENTIN 300 MG CAPSULE 1 CAPSULE ORALLY BEFORE BEDTIME, NOTES: 03/19/20202099 TAKING SOMA 350 MG TABLET 1 TABLET NEEDED ORALLY FOR SPASMS AND PAIN EVERY 12 HOURS NEEDED MDD2, NOTES: 03/19/2020 0900 TAKING PERCOCET 5-325 MG TABLET 1 TABLET NEEDED ORALLY EVERY 6 HRS MDD4, NOTES: 03/19/20201999 NOT-TAKING AMLODIPINE BESYLATE 2.5 MG TABLET 1 TABLET ORALLY ONCE A DAY NOT-TAKING POTASSIUM BICARB & CHLORIDE 20 MEQ PACKET 2 TABS ORALLY TWICE A DAY NOT-TAKING SPIRONOLACTONE 25 MG TABLET 1 TABLET ORALLY ONCE A DAY NOT-TAKING TOPIRAMATE 50 MG TABLET 1 TABLET ORALLY BEFORE BEDTIME NOT-TAKING PERCOCET 5-325 MG TABLET 1 TO 2 TAB ORALLY Q6H PRN MDD 4, NOTES: DUPLICATE NOT-TAKING ENTOCORT EC 3 MG CAPSULE DELAYED RELEASE PARTICLES DIRECTED ORALLY , NOTES: 2 WEEKS MEDICATION LIST REVIEWED AND RECONCILED WITH THE PATIENT PAST MEDICAL HISTORY DIABETES MIGRAINES PAF - INTERMITTENT A-FIB HTN GERD HIGH CHOLESTEROL GUILLAIN BARRE PNEUMONIA ILIEITIS A FIB WITH RVR DIVERTICULITIS BPH ED MULTIPLE GI PROBLEMS CHRON'S ALLERGIES SURGICAL GLUE: RASH, ITCHING - ALLERGY SURGICAL HISTORY BOWEL RESECTION 2013 RIGHT KNEE ARTHROSCOPY, LEFT ALSO DONE YEARS LATER 2013 GASTRIC BYPASS RIGHT INGUINAL HERNIA REPAIR 06/24/18 CHOLECYSTECTOMY 11/2018 EGD 12/2019 EXPLORATORY LAP 12/2019 FAMILY HISTORY FATHER: , DIAGNOSED WITH OTHER MALIGNANT NEOPLASM OF UNSPECIFIED SITE, DIABETES MOTHER: , DIABETES, HYPERTENSION, OTHER SPECIFIED CONDITIONS INFLUENCING HEALTH STATUS SIBLINGS: ALIVE 4 BROTHER(S) , 2 SISTER(S) . 1 SON(S) , 1 DAUGHTER(S) - HEALTHY. 1 SISTER . 1 SISTER HAS ALOT OF MEDICAL ISSUES ALSO. SOCIAL HISTORY GENERAL: TOBACCO USE ARE YOU A:NONSMOKER LATEX QUESTIONNAIRE LATEX ALLERGY : HAVE YOU EVER DEVELOPED ANY TYPE OF REACTION AFTER HANDLING LATEX PRODUCTS SUCH RUBBER GLOVES, CONDOMS, DIAPHRAGMS, BALLOONS, SOCKS, OR UNDERWEAR?NO LATEX ALLERGY : HAVE YOU EVER DEVELOPED ANY TYPE OF REACTION DURING OR AFTER DENTAL APPOINTMENT, VAGINAL/RECTAL EXAMINATION, SURGICAL PROCEDURE, OR ANY OTHER EXPOSURE?NO LATEX RISK : HAVE YOU EVER HAD ANY DIFFICULTY BREATHING OR HIVES AFTER EATING OR HANDLING ANY FRUITS, OR VEGETABLES; SUCH KIWI, BANANAS, STONE FRUITS, OR CHESTNUTSNO LATEX RISK : DO YOU HAVE A PREVIOUS PERSONAL HISTORY OF MORE THAN NINE SURGERIES, SPINA BIFIDA, OR REPEATED CATHERIZATIONS? NO LATEX RISK : ARE YOU FREQUENTLY EXPOSED TO LATEX PRODUCTS IN YOUR OCCUPATION?NO DATE ASKED : 03/17/2020 ALCOHOL SCREENING DID YOU HAVE A DRINK CONTAINING ALCOHOL IN THE PAST YEAR?YES HOW OFTEN DID YOU HAVE SIX OR MORE DRINKS ON ONE OCCASION IN THE PAST YEAR?NEVER (0 POINTS) HOW MANY DRINKS DID YOU HAVE ON A TYPICAL DAY WHEN YOU WERE DRINKING IN THE PAST YEAR?1 OR 2 (0 POINTS) HOW OFTEN DID YOU HAVE A DRINK CONTAINING ALCOHOL IN THE PAST YEAR?MONTHLY OR LESS (1 POINT) POINTS1 INTERPRETATIONNEGATIVE RECREATIONAL DRUG USE DRUG USE?NO CAFFEINE CAFFEINE USE?YES 1-2 SODA/DAY SEXUAL HX HAD SEX IN THE LAST 12 MONTHS (VAGINAL, ORAL, OR ANAL)?NO HAVE YOU EVER HAD AN STD?NO YAZDANISM [id number] OTHER LANGUAGE LANGUAGES SPOKEN:GIBR[place]ARIAN EDUCATION LEVEL OF EDUCATION:FINISHED HIGH SCHOOL LEARNING BARRIERS / SPECIAL NEEDS CHANGE FROM LAST VISIT?NO BARRIERS TO LEARNING?NO HEARING IMPAIRED?NO VISION IMPAIRED?YES COGNITIVELY IMPAIRED?NO :CORRECTIVE LENSES READINESS TO LEARN?YES LEARNING PREFERENCES?NO LEARNING CAPABILITIES PRESENT?YES EMOTIONAL BARRIERS?NO SPECIAL DEVICES?NO [place]ISSION SUPPORT SPECIALIST NEEDED?NO DOMESTIC VIOLENCE DO YOU FEEL SAFE IN YOUR ENVIRONMENT?YES 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 EXERCISE: WALKS. MARITAL STATUS: . OTHERS AT HOME: SPOUSE. NEW PATIENT PAIN DIARY TODAY'S VISITNOTES 03/17/2020 PATIENT DESCRIBES PAIN :ACHING, BURNING, HAVE IT ALL THE TIME, STABBING FROM 0-10, WHAT LEVEL IS YOUR PAIN TODAY?9 PRECIPITATING FACTORS WORKING ALLEVIATING FACTORS INJECTIONS IMPACT ON FUNCTION DIFFICULTY WITH WORKING. PAIN CLINIC PFS, CLERGY, PUBLIC HEALTH REFERRALS PFS REFERRAL NEEDED?NO CLERGY REFERRAL NEEDED?NO PUBLIC HEALTH REFERRAL NEEDED?NO WAS THE PROVIDER NOTIFIED OF ANY PERTINENT INFO?YES N/A HAS THE PATIENT BEEN EDUCATED REGARDING HIS/HER PLAN OF CARE?YES HAS THE PATIENT BEEN EDUCATED REGARDING PAIN, THE RISK FOR PAIN, THE IMPORTANCE OF EFFECTIVE PAIN MANAGEMENT, AND THE PAIN ASSESSMENT PROCESS?YES ADVANCE DIRECTIVE ADVANCE DIRECTIVE DISCUSSED WITH PATIENT:YES HCP ON FILE - , AUDREY DAIGLE [phone] HOSPITALIZATION/MAJOR DIAGNOSTIC PROCEDURE SURGERY RELATED GUILLAIN BARRE REQUIRING PLASMAPHERESIS, IVIG, STEROIDS AND INTUBATION [facility] 09/2015 PNEUMONIA, ILEITIS 02/2018 REVIEW OF SYSTEMS REVIEWED BY: PROVIDER: BONY ANTOINE MD . CONSTITUTIONAL: ANY CHANGE IN YOUR MEDICAL CONDITION? NO . CHILLS NO . FEVER NO . INFECTION: DO YOU HAVE NEW INFECTIONS? NO . DO YOU HAVE HISTORY OF MRSA? NO . MUSCULOSKELETAL: ANY NEW PATTERNS OF PAIN OR NUMBNESS? NO . GASTROENTEROLOGY: ANY NEW CHANGE IN BOWEL CONTROL? NO . GENITOURINARY: ANY NEW CHANGE IN BLADDER CONTROL? NO . IS THERE A CHANCE YOU COULD BE ? NO . HEMATOLOGY/LYMPH: DO YOU TAKE ANY BLOOD THINNERS? (FOR EXAMPLE- COUMADIN, PLAVIX, AGGRENOX, PLATEL, PRADAXA, OR XARELTO) NO . WHEN WAS YOUR LAST DOSE? DATE: TIME: . NEUROLOGY: HAVE YOU FALLEN IN THE PAST 12 MONTHS? NO . ANY NEW EXTREMITY NUMBNESS OR WEAKNESS? NO . CARDIOLOGY: DO YOU HAVE A PACEMAKER OR DEFIBRILLATOR? NO . RESPIRATORY: HAVE YOU BEEN SICK IN THE PAST WEEK? NO . FEVER NO . FLU LIKE SYMPTOMS? NO . COUGH NO . INTEGUMENTARY: DO YOU HAVE ANY RASHES OR OPEN SORES? NO . ALLERGIC/IMMUNO: ARE YOU ALLERGIC TO IV DYE? NO . ANY NEW ALLERGIES? NO . PSYCHIATRIC: DO YOU HAVE THOUGHTS OF HURTING YOURSELF OR SOMEONE ELSE? NO . ARE YOU ABUSED, NEGLECTED, OR IN AN UNSAFE ENVIRONMENT? NO . ENDOCRINOLOGY: ARE YOU DIABETIC? YES, NO BLOOD SUGAR MEDS AM OF APPT, FSBS 110 . OTHER: DO YOU NEED ANY PRESCRIPTIONS? NO . IF YES, PLEASE LIST: ____ . ANY NEW PROBLEMS WITH YOUR MEDICATIONS? NO . WHEN DID YOU LAST EAT? 03/20/2020599 . WHEN DID YOU LAST DRINK? 03/20/2020599 . WHAT DID YOU LAST DRINK? WATER . NAME OF PERSON DRIVING YOU HOME? AUDREY . DO YOU HAVE ANY OTHER QUESTIONS OR CONCERNS NO . VITAL SIGNS WT 171.2 LBS, HT 70 IN, BMI 24.56 INDEX, BP 161/74 MM HG, HR 72 /MIN, RR 18 /MIN, TEMP 96.0 F, OXYGEN SAT % 99%, BLOOD GLUCOSE LEVEL 110, SAFE IN ENV? (Y/N) YES, NA INITIALS AW 1350, REVIEWED BY: SANCHO. ASSESSMENTS CERVICAL DISC DISORDER WITH RADICULOPATHY OF CERVICAL REGION - M50.10 (PRIMARY) TREATMENT CERVICAL DISC DISORDER WITH RADICULOPATHY OF CERVICAL REGION [facility] FLUORO GUIDE SPINE INJECTION (PAIN)[id number] PROCEDURES PN CERVICAL EPIDURAL PRE PROCEDURE DIAGNOSIS CERVICAL DISC DISORDER WITH RADICULOPATHY POST PROCEDURE DIAGNOSIS CERVICAL DISC DISORDER WITH RADICULOPATHY PROCEDURE CERVICAL EPIDURAL STEROID INJECTION UNDER FLUOROSCOPIC GUIDANCE SURGEON DR. BONY ANTOINE MEDICAL RESEARCH ASSISTANT NONE ANESTHESIA LOCAL PRE PROCEDURE NOTE THE PATIENT HAS A HISTORY OF CHRONIC CERVICAL PAIN. I EVALUATED THE PATIENT AND REVIEWED THE CHART. I WENT OVER THE RISKS, ALTERNATIVES, AND BENEFITS ASSOCIATED WITH THIS PROCEDURE. I DISCUSSED WITH THE PATIENT THAT THE USE OF STEROIDS MAY CONTRIBUTE TO IMMUNOSUPPRESSION OF HIS BODY AGAINST INFECTIONS SUCH THE MONZON VIRUS, COVID-19. HE IS AWARE OF THE POTENTIAL COMPLICATIONS ASSOCIATED WITH AN INFECTION OF THIS VIRUS INCLUDING . THE PATIENT WOULD LIKE TO PROCEED AND GIVE CONSENT TO PERFORMED THE PROCEDURE. THE PATIENT DENIES UNEXPLAINABLE WEIGHT LOSS, FEVER, CHILLS, OR NEW CHANGES IN URINARY OR BOWEL CONTROL. THE PATIENT IS COVID-19 NEGATIVE DESCRIPTION OF PROCEDURE THE PATIENT WAS BROUGHT TO THE PROCEDURE ROOM AND PLACED IN THE PRONE POSITION. THE CERVICOTHORACIC AREA WAS CLEANED WITH BETADINE SOLUTION AND DRAPED ASEPTICALLY. THE PROCEDURE WAS DONE UNDER STERILE CONDITIONS. I CHECKED LATERALITY AND THE LEVEL WHERE THE PROCEDURE WAS GOING TO BE PERFORMED WITH THE PATIENT AND THE SUPPORTING STAFF AT THE MOMENT OF THE TIME OUT IN THE PROCEDURE ROOM. UNDER FLUOROSCOPIC GUIDANCE, THE TARGET WAS SELECTED AT THE INTERLAMINAR LEVEL OF C7-T1. LIDOCAINE WAS USED TO NUMB THE SKIN AND THE SUBCUTANEOUS TISSUE BELOW IT. EPIDURAL TUOHY NEEDLE 17-GAUGE WAS ADVANCED UNDER FLUOROSCOPIC GUIDANCE AND FOLLOWING PATIENT FEEDBACK UNTIL THE EPIDURAL SPACE WAS REACHED 7 CM DEEP INTO THE SKIN BY THE LOSS OF RESISTANCE TECHNIQUE. ISOVUE M DYE 30%, 0.25 ML, WAS INJECTED SHOWING ADEQUATE SPREAD OF THE DYE. THEN, A SOLUTION OF 3 ML OF NORMAL SALINE WITH DEXAMETHASONE 10 MG WAS INJECTED SLOWLY FOLLOWING PATIENT FEEDBACK. THERE WAS NO EVIDENCE OF BLOOD, PARESTHESIA OR CEREBROSPINAL FLUID DURING THE PROCEDURE. THE PATIENT WAS SENT TO THE RECOVERY ROOM. THE PATIENT WAS MOVING THE EXTREMITIES AND DOING WELL. THERE WAS NO COMPLICATION DURING THE PROCEDURE. FLUOROSCOPY TIME WAS 15 SECONDS POST PROCEDURE NOTE THE PATIENT SHOULD DO HIS REMICADE IN 3 DAYS FROM NOW. THE PATIENT WILL BE SEEN IN A FOLLOW UP IN THE NEXT FEW WEEKS. I AM LOOKING FOR LONG LASTING PAIN RELIEF FOR THE PATIENT WITH THIS INJECTION. INSTRUCTIONS WERE GIVEN, QUESTIONS WERE ANSWERED, AND THE PATIENT EXPRESSED UNDERSTANDING AND AGREES WITH THE PLAN. I INSTRUCTED THE PATIENT TO STAY HOME, IF POSSIBLE, FOR A WEEK DUE TO COVID-19. I, SELAM VARELA, DOCUMENTED THE ABOVE INFORMATION ACTING A SCRIBE FOR DR. ANTOINE. I HAVE REVIEWED THE ABOVE DOCUMENT, WRITTEN BY FLORESITA GRANDA, AND I VERIFY THAT IT IS ACCURATE PROCEDURE CODES 6045F RADXPS IN [place] [id number] PXD [id number] CERVICAL/THORACIC W/ IMAGING DISPOSITION & COMMUNICATION FOLLOW UP F/UP WITH [employer] MANAGER (REASON: POST-PROCEDURE F/UP-NECK PAIN) ELECTRONICALLY SIGNED BY BONY ANTOINE MD, MD ON 03/21/2020 AT 06:16 PM EDT DISCLAIMER : THIS IS A VISIT SUMMARY EXTRACTED FROM THE [employer] CHART. IT IS NOT A COPY OF THE [employer] PROGRESS NOTE. MTDD
== END ==
LOC: M PAIN 14:00
PROVIDERS: ATTEND Anesthesiology
DX: M50.10 Cervical disc disorder with radiculopathy, unspecified cervical region (principal); E11.9 Type 2 diabetes mellitus without complications; I10 Essential (primary) hypertension; Z79.82 Long term (current) use of aspirin; Z79.84 Long term (current) use of oral hypoglycemic drugs; Z79.891 Long term (current) use of opiate analgesic; Z79.899 Other long term (current) drug therapy; Z98.84 Bariatric surgery status; Z91.048 Other nonmedicinal substance allergy status
CPT/HCPCS: 62321; J1100; Q9967

== ENCOUNTER 2020-03-23 07:36 | Outpatient (CLI) | payer OTHER ==
[2020-03-23] VITALS (10 sets, daily range): BP systolic 156–168; BP diastolic 80–92
[~2020-03-23] VITALS: Ht 177.8 cm; Wt 72.7 kg
[~2020-03-23 07:36] MED LIST changes: -ISOVUE-M 300 61% 15ML VIAL As Ordered ONE; -LIDOCAINE 1% SDV 30ML VIAL As Ordered ONE; -dexameTHASONE 10MG/1ML VIAL PRES.FREE (J1100 PER 1MG) As Ordered ONE; -diazePAM 5 MG TAB As Ordered ONE; -oxyCODONE 5MG TAB As Ordered ONE
[2020-03-23] MEDS ORDERED: diphenhydrAMINE 50MG PO PRIOR TO INFUSION PO ONE (08:00)
[2020-03-23] MEDS ORDERED: NS 1,000 ML IV SCH (08:00)
[2020-03-23] MEDS ORDERED: inFLIXimab INJECTION 400 MG in NS 210 ML IV ONE (08:00)
[2020-03-23] MEDS ORDERED: ACETAMINOPHEN 650MG PO PRIOR TO INFUSION PO ONE (08:00)
== END 2020-03-23 11:30 | disposition home or self-care (01) ==
LOC: M INFU 07:36
PROVIDERS: ATTEND Internal Medicine Gastroenterology
DX: K50.90 Crohn's disease, unspecified, without complications (principal)
CPT/HCPCS: 96413; 96415; J1745

== ENCOUNTER 2020-04-06 08:23 | Outpatient (CLI) | payer OTHER ==
[2020-04-06] VITALS (7 sets, daily range): BP systolic 129–144; BP diastolic 64–71
[~2020-04-06] VITALS: Ht 177.8 cm; Wt 72.7 kg
[2020-04-06] MEDS ORDERED: diphenhydrAMINE 50MG PO PRIOR TO INFUSION PO ONE (08:45)
[2020-04-06] MEDS ORDERED: ACETAMINOPHEN 650MG PO PRIOR TO INFUSION PO ONE (08:45)
[2020-04-06] MEDS ORDERED: NS 1,000 ML IV SCH (08:45)
[2020-04-06] MEDS ORDERED: inFLIXimab INJECTION 400 MG in NS 210 ML IV ONE (09:00)
== END 2020-04-06 11:40 | disposition home or self-care (01) ==
LOC: M INFU 08:23
PROVIDERS: ATTEND Internal Medicine Gastroenterology
DX: K50.90 Crohn's disease, unspecified, without complications (principal)
CPT/HCPCS: 96413; 96415; J1745

== ENCOUNTER → 2020-04-10 | Outpatient (CLI) | payer OTHER ==
--- NOTE | 2020-04-12 01:17 | ECWPNPC ---
PATIENT NAME: HAI DAIGLE : 1965 GENDER: MALE VISIT DATE: 04/10/2020 DISCHARGE DATE: 04/10/20 1005 VISIT LOCKED DATE TIME: PHYSICIAN: BRITT LANCASTER RESOURCE: BRITT LANCASTER REASON FOR APPOINTMENT 1. POST PROC HISTORY OF PRESENT ILLNESS GENERAL: THIS IS A POST PROCEDURE FOLLOW-UP. HAD CERVICAL EPIDURAL STEROID INJECTION ON 03/20/2020. REPORTING MARKED IMPROVEMENT IN NECK PAIN THAT RADIATES INTO SHOULDERS BILATERALLY. RATING PAIN LEVEL A 2/10 VAS. CHIEF AREA OF PAIN IS MID SCAPULAR. PAIN IS AGGRAVATED BY RANGE OF JOINT MOTION OF THE ARMS AND FLEXION OF THE SPINE. HAS BENEFITED FROM TRIGGER POINT INJECTIONS IN THE PAST. PATIENT IS TAKING REMICADE. LAST DOSE WAS LAST FRIDAY. NEXT DOSE WILL BE MAY 02. REVIEWED CASE WITH DR. ANTOINE. PATIENT IS AWARE OF THE INCREASED RISK ASSOCIATED WITH STEROIDS AND REMICADE AND WISHES TO PROCEED DESPITE THE RISK OF DECREASED IMMUNE STATUS AND INCREASED RISK OF INFECTION. -. FALL RISK SCREENING: SCREENING :NO FALLS REPORTED IN THE LAST YEAR PAIN SCREENING: PATIENT HAS A COMPLAINT OF ACUTE OR CHRONIC PAIN :YES LOCATION OF PAIN:NECK, OTHER: LEFT NECK AND BETWEEN SHOULDERS INTENSITY OF PAIN (SCALE OF 1 TO 10):2 WHAT DOES YOUR PAIN FEEL LIKE:ACHING, CONTINOUS INTENSITY VARIES DURATION:CONTINOUS PAIN IS INCREASED BY:ACTIVITIES PAIN IS DECREASED BY:OTHERS HEAT PLAN/GOALS/TREATMENT/INTERVENTION/FOLLOW UP:SEE PLAN NURSING NOTE: -. CURRENT MEDICATIONS TAKING ASPIR-81 81 MG TABLET DELAYED RELEASE 1 TABLET ORALLY EVERY OTHER DAY TAKING CITRACAL PLUS 400MG TABLET 2 TABS ORALLY AT BEDTIME TAKING FLECAINIDE ACETATE 50 MG TABLET 1 TABLET ORALLY EVERY 12 HRS TAKING VITAMIN D3 MAXIMUM STRENGTH 5000 UNIT CAPSULE 1 CAPSULE ORALLY DAILY TAKING VITAMIN B-12 500 MCG TABLET 1 TABLET ORALLY ONCE A DAY TAKING TRULICITY 0.75 MG/0.5ML SOLUTION PEN-INJECTOR SUBCUTANEOUS WEEKLY TAKING PRILOSEC 40 MG CAPSULE DELAYED RELEASE 1/2 CAPSULE ORALLY ONCE A DAY TAKING METFORMIN HCL 1000 MG TABLET 1 TABLET WITH MEALS ORALLY TWICE DAILY TAKING PROBIOTIC 1 CAPSULE 1 CAP ORALLY DAILY TAKING MAGNESIUM 400 MG CAPSULE 1 CAP ORALLY BID TAKING BISOPROLOL FUMARATE 5 MG TABLET 1 TABLET ORALLY ONCE A DAY TAKING LIPITOR 10 MG TABLET 1 TABLET ORALLY ONCE A DAY TAKING MULTI FOR HIM TABLET 2 TABS ORALLY DAILY TAKING TAMSULOSIN HCL 0.4 MG CAPSULE 1 CAPSULE ONCE A DAY TAKING ZOFRAN 8 MG TABLET 1 TABLET ORALLY Q 8 HOURS NEEDED TAKING LOSARTAN POTASSIUM 25 MG TABLET 1 TABLET ORALLY ONCE A DAY TAKING DICYCLOMINE HCL 20 MG TABLET 1 TABLET NEEDED ORALLY QID TAKING COLESTIPOL HCL 1 GM TABLET 1 TABLET ORALLY BID TAKING MELATONIN 5 MG TABLET 1 TABLET AT BEDTIME NEEDED WITH FOOD ORALLY ONCE A DAY TAKING JARDIANCE 25 MG TABLET 1 TABLET ORALLY ONCE A DAY TAKING POTASSIUM CHLORIDE 20 MEQ TABLET EXTENDED RELEASE 1 TABLET WITH FOOD ORALLY ONCE A DAY TAKING COLCRYS 0.6 MG TABLET 1 TABLET PRN ORALLY ONCE A DAY TAKING CYMBALTA 60 MG CAPSULE DELAYED RELEASE PARTICLES 1 CAPSULE ORALLY BEFORE BEDTIME TAKING TIZANIDINE HCL 2 MG TABLET 1 TABLET NEEDED ORALLY EVERY 8 HRS TAKING GABAPENTIN 300 MG CAPSULE 1 CAPSULE ORALLY BEFORE BEDTIME TAKING SOMA 350 MG TABLET 1 TABLET NEEDED ORALLY FOR SPASMS AND PAIN EVERY 12 HOURS NEEDED MDD2 TAKING PERCOCET 5-325 MG TABLET 1 TABLET NEEDED ORALLY EVERY 6 HRS MDD4 NOT-TAKING AMLODIPINE BESYLATE 2.5 MG TABLET 1 TABLET ORALLY ONCE A DAY NOT-TAKING POTASSIUM BICARB & CHLORIDE 20 MEQ PACKET 2 TABS ORALLY TWICE A DAY NOT-TAKING SPIRONOLACTONE 25 MG TABLET 1 TABLET ORALLY ONCE A DAY NOT-TAKING TOPIRAMATE 50 MG TABLET 1 TABLET ORALLY BEFORE BEDTIME NOT-TAKING PERCOCET 5-325 MG TABLET 1 TO 2 TAB ORALLY Q6H PRN MDD 4, NOTES: DUPLICATE NOT-TAKING ENTOCORT EC 3 MG CAPSULE DELAYED RELEASE PARTICLES DIRECTED ORALLY , NOTES: 2 WEEKS MEDICATION LIST REVIEWED AND RECONCILED WITH THE PATIENT PAST MEDICAL HISTORY DIABETES MIGRAINES PAF - INTERMITTENT A-FIB HTN GERD HIGH CHOLESTEROL GUILLAIN BARRE PNEUMONIA ILIEITIS A FIB WITH RVR DIVERTICULITIS BPH ED MULTIPLE GI PROBLEMS CHRON'S ALLERGIES SURGICAL GLUE: RASH, ITCHING - ALLERGY SURGICAL HISTORY BOWEL RESECTION 2013 RIGHT KNEE ARTHROSCOPY, LEFT ALSO DONE YEARS LATER 2013 GASTRIC BYPASS RIGHT INGUINAL HERNIA REPAIR 06/24/18 CHOLECYSTECTOMY 11/2018 EGD 12/2019 EXPLORATORY LAP 12/2019 FAMILY HISTORY FATHER: , DIAGNOSED WITH DIABETES, OTHER MALIGNANT NEOPLASM OF UNSPECIFIED SITE MOTHER: , DIABETES, HYPERTENSION, OTHER SPECIFIED CONDITIONS INFLUENCING HEALTH STATUS SIBLINGS: ALIVE 4 BROTHER(S) , 2 SISTER(S) . 1 SON(S) , 1 DAUGHTER(S) - HEALTHY. 1 SISTER . 1 SISTER HAS ALOT OF MEDICAL ISSUES ALSO. SOCIAL HISTORY GENERAL: TOBACCO USE ARE YOU A:NONSMOKER LATEX QUESTIONNAIRE LATEX ALLERGY : HAVE YOU EVER DEVELOPED ANY TYPE OF REACTION AFTER HANDLING LATEX PRODUCTS SUCH RUBBER GLOVES, CONDOMS, DIAPHRAGMS, BALLOONS, SOCKS, OR UNDERWEAR?NO LATEX ALLERGY : HAVE YOU EVER DEVELOPED ANY TYPE OF REACTION DURING OR AFTER DENTAL APPOINTMENT, VAGINAL/RECTAL EXAMINATION, SURGICAL PROCEDURE, OR ANY OTHER EXPOSURE?NO LATEX RISK : HAVE YOU EVER HAD ANY DIFFICULTY BREATHING OR HIVES AFTER EATING OR HANDLING ANY FRUITS, OR VEGETABLES; SUCH KIWI, BANANAS, STONE FRUITS, OR CHESTNUTSNO LATEX RISK : DO YOU HAVE A PREVIOUS PERSONAL HISTORY OF MORE THAN NINE SURGERIES, SPINA BIFIDA, OR REPEATED CATHERIZATIONS? NO LATEX RISK : ARE YOU FREQUENTLY EXPOSED TO LATEX PRODUCTS IN YOUR OCCUPATION?NO DATE ASKED : 04/10/2020 ALCOHOL SCREENING DID YOU HAVE A DRINK CONTAINING ALCOHOL IN THE PAST YEAR?YES HOW OFTEN DID YOU HAVE SIX OR MORE DRINKS ON ONE OCCASION IN THE PAST YEAR?NEVER (0 POINTS) HOW MANY DRINKS DID YOU HAVE ON A TYPICAL DAY WHEN YOU WERE DRINKING IN THE PAST YEAR?1 OR 2 (0 POINTS) HOW OFTEN DID YOU HAVE A DRINK CONTAINING ALCOHOL IN THE PAST YEAR?MONTHLY OR LESS (1 POINT) POINTS1 INTERPRETATIONNEGATIVE RECREATIONAL DRUG USE DRUG USE?NO CAFFEINE CAFFEINE USE?YES 1-2 SODA/DAY SEXUAL HX HAD SEX IN THE LAST 12 MONTHS (VAGINAL, ORAL, OR ANAL)?NO HAVE YOU EVER HAD AN STD?NO BUDDHISM [id number] OTHER LANGUAGE LANGUAGES SPOKEN:TURKMEN EDUCATION LEVEL OF EDUCATION:FINISHED HIGH SCHOOL LEARNING BARRIERS / SPECIAL NEEDS CHANGE FROM LAST VISIT?NO BARRIERS TO LEARNING?NO HEARING IMPAIRED?NO VISION IMPAIRED?YES :CORRECTIVE LENSES COGNITIVELY IMPAIRED?NO READINESS TO LEARN?YES LEARNING PREFERENCES?NO LEARNING CAPABILITIES PRESENT?YES EMOTIONAL BARRIERS?NO SPECIAL DEVICES?NO 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 EXERCISE: WALKS. MARITAL STATUS: . OTHERS AT HOME: SPOUSE. PAIN CLINIC PFS, CLERGY, PUBLIC HEALTH REFERRALS PFS REFERRAL NEEDED?NO CLERGY REFERRAL NEEDED?NO PUBLIC HEALTH REFERRAL NEEDED?NO WAS THE PROVIDER NOTIFIED OF ANY PERTINENT INFO?YES N/A HAS THE PATIENT BEEN EDUCATED REGARDING HIS/HER PLAN OF CARE?YES HAS THE PATIENT BEEN EDUCATED REGARDING PAIN, THE RISK FOR PAIN, THE IMPORTANCE OF EFFECTIVE PAIN MANAGEMENT, AND THE PAIN ASSESSMENT PROCESS?YES ADVANCE DIRECTIVE ADVANCE DIRECTIVE DISCUSSED WITH PATIENT:YES HCP ON FILE - , AUDREY DAIGLE [phone] HOSPITALIZATION/MAJOR DIAGNOSTIC PROCEDURE SURGERY RELATED GUILLAIN BARRE REQUIRING PLASMAPHERESIS, IVIG, STEROIDS AND INTUBATION [facility] 09/2015 PNEUMONIA, ILEITIS 02/2018 REVIEW OF SYSTEMS CONSTITUTIONAL: ANY RECENT FEVER OR ILLNESS NO . CHILLS NO . GASTROENTEROLOGY: BOWEL INCONTINENCE NO . ANY NEW CHANGE IN BOWEL CONTROL? NO . ABDOMINAL PAIN NO . CONSTIPATION NO . GENITOURINARY: ANY NEW CHANGE IN BLADDER CONTROL? NO . IS THERE A CHANCE YOU COULD BE ? NO . URINARY INCONTINENCE NO . CARDIOLOGY: CHEST PRESSURE NO . CHEST PAIN NO . RESPIRATORY: COUGH NO . SHORTNESS OF BREATH NO . VITAL SIGNS WT 169.2 LBS, HT 70 IN, BMI 24.28 INDEX, BP 122/64 MM HG, HR 78 /MIN, RR 16 /MIN, TEMP 96.2 F, OXYGEN SAT % 98%, SAFE IN ENV? (Y/N) Y, NA INITIALS TL 0928, REVIEWED BY: AD. EXAMINATION GENERAL EXAMINATION: GENERALAPPEARS UNCOMFORTABLE . PSYCH AFFECT NORMAL. LUNGS:CLEAR TO AUSCULTATION BILATERALLY, NO WHEEZES, RHONCHI, RALES. HEART:NO MURMURS, REGULAR RATE AND RHYTHM. MUSCULOSKELETAL:TRIGGER POINTS:, ELICITED WITH PALPATION OVER MID THORACIC/SCAPULA REGION. RESTRICTION OF ROM IS NOTED.. DIAGNOSTIC TESTS REVIEWED MRI C-SPINE-. ASSESSMENTS MYALGIA, OTHER SITE - M79.18 (PRIMARY) TREATMENT MYALGIA, OTHER SITE NOTES: TRIGGER POINT INJECTION MID SCAPULA/THORACIC. PREVENTIVE MEDICINE PAIN CLINIC TEACHING: PROCEDURE TEACHING PT DECLINED INFORMATION ON TRIGGER POINT INJECTIONS STATING HE HAS HAD THEM BEFORE AND IS FAMILIAR WITH IT. PRE-PROCEDURE INSTRUCTIONS REVIEWED WITH PT AND HE VERBALIZED UNDERSTANDING. AD. PROCEDURE CODES FA211 ESTABILISHED PATIENT [facility] FACILITY CHARGE DISPOSITION & COMMUNICATION FOLLOW UP POST (REASON: TRIGGER POINT INJECTION MID SCAPULA/THORACIC) ELECTRONICALLY SIGNED BY MARTÍN GOLDBERG ON 04/11/2020 AT 08:40 AM EDT DISCLAIMER : THIS IS A VISIT SUMMARY EXTRACTED FROM THE [facility] CHART. IT IS NOT A COPY OF THE [facility] PROGRESS NOTE. TERESA
== END ==
LOC: M PAIN 09:30
PROVIDERS: ATTEND Nurse Practitioner Family
DX: M79.18 Myalgia, other site (principal); E11.9 Type 2 diabetes mellitus without complications; G43.909 Migraine, unspecified, not intractable, without status migrainosus; I10 Essential (primary) hypertension; K21.9 Gastro-esophageal reflux disease without esophagitis; Z98.84 Bariatric surgery status; Z91.09 Other allergy status, other than to drugs and biological substances; Z79.82 Long term (current) use of aspirin; Z79.84 Long term (current) use of oral hypoglycemic drugs; Z79.899 Other long term (current) drug therapy

== ENCOUNTER → 2020-04-17 | Outpatient (CLI) | payer OTHER | LOC: M LABSMTC 11:17 | PROVIDERS: ATTEND Anesthesiology | DX: Z03.818 Encounter for observation for suspected exposure to other biological agents ruled out (principal); Z11.59 Encounter for screening for other viral diseases | CPT/HCPCS: C9803; U0003 ==

== ENCOUNTER → 2020-04-20 | Outpatient (CLI) | payer OTHER ==
[~2020-04-20] MED LIST changes: +BUPIVACAINE HCL 0.25% 10ML VIAL As Ordered ONE; +BUPIVACAINE HCL 0.25% 30ML VIAL As Ordered ONE; +dexameTHASONE 10MG/1ML VIAL PRES.FREE (J1100 PER 1MG) As Ordered ONE
--- NOTE | 2020-04-21 00:25 | ECWPNPC ---
PATIENT NAME: HAI DAIGLE : 1965 GENDER: MALE VISIT DATE: 04/20/2020 DISCHARGE DATE: 04/20/20 1143 VISIT LOCKED DATE TIME: PHYSICIAN: BONY ANTOINE MD RESOURCE: BONY ANTOINE MD REASON FOR APPOINTMENT 1. TRIGGER POINT INJECTION MID SCAPULA/THORACIC PAT DONE HISTORY OF PRESENT ILLNESS GENERAL: -. FALL RISK SCREENING: SCREENING :NO FALLS REPORTED IN THE LAST YEAR PAIN SCREENING: PATIENT HAS A COMPLAINT OF ACUTE OR CHRONIC PAIN :YES LOCATION OF PAIN:LEFT SHOULDER INTENSITY OF PAIN (SCALE OF 1 TO 10):6 WHAT DOES YOUR PAIN FEEL LIKE:ACHING, CONTINOUS, SORE, SHOOTING DURATION:CONTINOUS, CONSTANT PAIN IS INCREASED BY:ACTIVITIES PAIN IS DECREASED BY:OTHERS HOT TUB NURSING NOTE: -. PAIN CENTER INTAKE QUESTIONS: DO YOU HAVE A HISTORY OF MRSA? :NO DO YOU TAKE A BLOOD THINNERS? :NO DO YOU HAVE ANY BLEEDING DISORDERS? :NO ANY NEW NUMBNESS OR WEAKNESS IN YOUR LEGS OR ARMS? :NO ANY PACEMAKER,DEFIBRILLATOR, OR DORSAL COLUMN STIMULATOR? :NO DO YOU HAVE ANY RASHES OR OPEN SORES? :NO ARE YOU ALLERGIC TO IV DYE? :NO ARE YOU DIABETIC? :YES METFORMIN AND TRULICITY ANY NEW PROBLEMS WITH YOUR MEDICATIONS? :NO HAVE YOU RECEIVED A VACCINE IN THE PAST 30 DAYS? :NO DO YOU PLAN TO RECEIVE A VACCINE IN THE NEXT 21 DAYS? :NO DO YOU TAKE ANY IMMUNOSUPPRESSIVE MEDICATIONS? :NO ANY HISTORY OF SEIZURES? :NO ANY HISTORY OF CARDIAC ISSUES OR EVENTS? :NO DO YOU HAVE SLEEP APNEA? : NO. ANY RECENT HEAD INJURY? :NO DO YOU HAVE ANY NEW INFECTIONS? :NO IS THERE A CHANCE YOU COULD BE ? :NO ARE YOU BREAST FEEDING? :NO WHEN DID YOU LAST EAT? : 04/20/2020 0300 WHEN DID YOU LAST DRINK? : 04/20/2020 0400 WHAT DID YOU LAST DRINK? : ORANGE JUICE NAME OF PERSON DRIVING YOU HOME? : -MADDY DO YOU HAVE ANY OTHER QUESTIONS OR CONCERNS? : - CURRENT MEDICATIONS TAKING ASPIR-81 81 MG TABLET DELAYED RELEASE 1 TABLET ORALLY EVERY OTHER DAY, NOTES: 04/19/2020 1800 TAKING CITRACAL PLUS 400MG TABLET 2 TABS ORALLY AT BEDTIME, NOTES: 04/19/2020 1800 TAKING FLECAINIDE ACETATE 50 MG TABLET 1 TABLET ORALLY EVERY 12 HRS, NOTES: 04/19/2020 1800 TAKING VITAMIN D3 MAXIMUM STRENGTH 5000 UNIT CAPSULE 1 CAPSULE ORALLY DAILY, NOTES: 04/19/2020499 TAKING VITAMIN B-12 500 MCG TABLET 1 TABLET ORALLY ONCE A DAY, NOTES: 04/19/2020499 TAKING TRULICITY 0.75 MG/0.5ML SOLUTION PEN-INJECTOR SUBCUTANEOUS WEEKLY, NOTES: FRIDAY TAKING PRILOSEC 40 MG CAPSULE DELAYED RELEASE 1/2 CAPSULE ORALLY ONCE A DAY, NOTES: 04/19/2020499 TAKING METFORMIN HCL 1000 MG TABLET 1 TABLET WITH MEALS ORALLY TWICE DAILY, NOTES: 1799 TAKING PROBIOTIC 1 CAPSULE 1 CAP ORALLY DAILY, NOTES: 04/19/2020499 TAKING MAGNESIUM 400 MG CAPSULE 1 CAP ORALLY BID, NOTES: 04/19/20201799 TAKING BISOPROLOL FUMARATE 5 MG TABLET 1 TABLET ORALLY ONCE A DAY, NOTES: 04/19/2020499 TAKING LIPITOR 10 MG TABLET 1 TABLET ORALLY ONCE A DAY, NOTES: 04/19/20201799 TAKING MULTI FOR HIM TABLET 2 TABS ORALLY DAILY, NOTES: 04/19/2020499 TAKING TAMSULOSIN HCL 0.4 MG CAPSULE 1 CAPSULE ONCE A DAY, NOTES: 04/19/2020499 TAKING ZOFRAN 8 MG TABLET 1 TABLET ORALLY Q 8 HOURS NEEDED, NOTES: PRN TAKING LOSARTAN POTASSIUM 25 MG TABLET 1 TABLET ORALLY ONCE A DAY, NOTES: 04/19/2020499 TAKING DICYCLOMINE HCL 20 MG TABLET 1 TABLET NEEDED ORALLY QID, NOTES: PRN TAKING COLESTIPOL HCL 1 GM TABLET 1 TABLET ORALLY BID, NOTES: 04/19/20201799 TAKING MELATONIN 5 MG TABLET 1 TABLET AT BEDTIME NEEDED WITH FOOD ORALLY ONCE A DAY, NOTES: PRN TAKING JARDIANCE 25 MG TABLET 1 TABLET ORALLY ONCE A DAY, NOTES: 04/19/2020499 TAKING POTASSIUM CHLORIDE 20 MEQ TABLET EXTENDED RELEASE 1 TABLET WITH FOOD ORALLY ONCE A DAY, NOTES: 04/19/2020499 TAKING COLCRYS 0.6 MG TABLET 1 TABLET PRN ORALLY ONCE A DAY, NOTES: 04/19/2020499 TAKING CYMBALTA 60 MG CAPSULE DELAYED RELEASE PARTICLES 1 CAPSULE ORALLY BEFORE BEDTIME, NOTES: 04/19/2020 1800 TAKING TIZANIDINE HCL 2 MG TABLET 1 TABLET NEEDED ORALLY EVERY 8 HRS, NOTES: PRN TAKING GABAPENTIN 300 MG CAPSULE 1 CAPSULE ORALLY BEFORE BEDTIME, NOTES: 04/19/2020 1800 TAKING SOMA 350 MG TABLET 1 TABLET NEEDED ORALLY FOR SPASMS AND PAIN EVERY 12 HOURS NEEDED MDD2, NOTES: 04/19/2020 1500 TAKING PERCOCET 5-325 MG TABLET 1 TABLET NEEDED ORALLY EVERY 6 HRS MDD4, NOTES: PRN NOT-TAKING AMLODIPINE BESYLATE 2.5 MG TABLET 1 TABLET ORALLY ONCE A DAY NOT-TAKING POTASSIUM BICARB & CHLORIDE 20 MEQ PACKET 2 TABS ORALLY TWICE A DAY NOT-TAKING SPIRONOLACTONE 25 MG TABLET 1 TABLET ORALLY ONCE A DAY NOT-TAKING TOPIRAMATE 50 MG TABLET 1 TABLET ORALLY BEFORE BEDTIME NOT-TAKING PERCOCET 5-325 MG TABLET 1 TO 2 TAB ORALLY Q6H PRN MDD 4, NOTES: DUPLICATE NOT-TAKING ENTOCORT EC 3 MG CAPSULE DELAYED RELEASE PARTICLES DIRECTED ORALLY , NOTES: 2 WEEKS MEDICATION LIST REVIEWED AND RECONCILED WITH THE PATIENT PAST MEDICAL HISTORY DIABETES MIGRAINES PAF - INTERMITTENT A-FIB HTN GERD HIGH CHOLESTEROL GUILLAIN BARRE PNEUMONIA ILIEITIS A FIB WITH RVR DIVERTICULITIS BPH ED MULTIPLE GI PROBLEMS CHRON'S ALLERGIES SURGICAL GLUE: RASH, ITCHING - ALLERGY SURGICAL HISTORY BOWEL RESECTION 2013 RIGHT KNEE ARTHROSCOPY, LEFT ALSO DONE YEARS LATER 2013 GASTRIC BYPASS RIGHT INGUINAL HERNIA REPAIR 06/24/18 CHOLECYSTECTOMY 11/2018 EGD 12/2019 EXPLORATORY LAP 12/2019 FAMILY HISTORY FATHER: , DIAGNOSED WITH DIABETES, OTHER MALIGNANT NEOPLASM OF UNSPECIFIED SITE MOTHER: , DIABETES, HYPERTENSION, OTHER SPECIFIED CONDITIONS INFLUENCING HEALTH STATUS SIBLINGS: ALIVE 4 BROTHER(S) , 2 SISTER(S) . 1 SON(S) , 1 DAUGHTER(S) - HEALTHY. 1 SISTER . 1 SISTER HAS ALOT OF MEDICAL ISSUES ALSO. SOCIAL HISTORY GENERAL: TOBACCO USE ARE YOU A:NONSMOKER LATEX QUESTIONNAIRE LATEX ALLERGY : HAVE YOU EVER DEVELOPED ANY TYPE OF REACTION AFTER HANDLING LATEX PRODUCTS SUCH RUBBER GLOVES, CONDOMS, DIAPHRAGMS, BALLOONS, SOCKS, OR UNDERWEAR?NO LATEX ALLERGY : HAVE YOU EVER DEVELOPED ANY TYPE OF REACTION DURING OR AFTER DENTAL APPOINTMENT, VAGINAL/RECTAL EXAMINATION, SURGICAL PROCEDURE, OR ANY OTHER EXPOSURE?NO LATEX RISK : HAVE YOU EVER HAD ANY DIFFICULTY BREATHING OR HIVES AFTER EATING OR HANDLING ANY FRUITS, OR VEGETABLES; SUCH KIWI, BANANAS, STONE FRUITS, OR CHESTNUTSNO LATEX RISK : DO YOU HAVE A PREVIOUS PERSONAL HISTORY OF MORE THAN NINE SURGERIES, SPINA BIFIDA, OR REPEATED CATHERIZATIONS? NO LATEX RISK : ARE YOU FREQUENTLY EXPOSED TO LATEX PRODUCTS IN YOUR OCCUPATION?NO DATE ASKED : 04/19/2020 ALCOHOL SCREENING DID YOU HAVE A DRINK CONTAINING ALCOHOL IN THE PAST YEAR?YES HOW OFTEN DID YOU HAVE SIX OR MORE DRINKS ON ONE OCCASION IN THE PAST YEAR?NEVER (0 POINTS) HOW MANY DRINKS DID YOU HAVE ON A TYPICAL DAY WHEN YOU WERE DRINKING IN THE PAST YEAR?1 OR 2 (0 POINTS) HOW OFTEN DID YOU HAVE A DRINK CONTAINING ALCOHOL IN THE PAST YEAR?MONTHLY OR LESS (1 POINT) POINTS1 INTERPRETATIONNEGATIVE RECREATIONAL DRUG USE DRUG USE?NO CAFFEINE CAFFEINE USE?YES 1-2 SODA/DAY SEXUAL HX HAD SEX IN THE LAST 12 MONTHS (VAGINAL, ORAL, OR ANAL)?NO HAVE YOU EVER HAD AN STD?NO SYNAGOGUE [id number] OTHER LANGUAGE LANGUAGES SPOKEN:YORUBA EDUCATION LEVEL OF EDUCATION:FINISHED HIGH SCHOOL LEARNING BARRIERS / SPECIAL NEEDS CHANGE FROM LAST VISIT?NO BARRIERS TO LEARNING?NO HEARING IMPAIRED?NO VISION IMPAIRED?YES COGNITIVELY IMPAIRED?NO :CORRECTIVE LENSES READINESS TO LEARN?YES LEARNING PREFERENCES?NO LEARNING CAPABILITIES PRESENT?YES EMOTIONAL BARRIERS?NO SPECIAL DEVICES?NO LINK TRAINER MECHANIC NEEDED?NO DOMESTIC VIOLENCE DO YOU FEEL SAFE IN YOUR ENVIRONMENT?YES 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 EXERCISE: WALKS. MARITAL STATUS: . OTHERS AT HOME: SPOUSE. PAIN CLINIC PFS, CLERGY, PUBLIC HEALTH REFERRALS PFS REFERRAL NEEDED?NO CLERGY REFERRAL NEEDED?NO PUBLIC HEALTH REFERRAL NEEDED?NO WAS THE PROVIDER NOTIFIED OF ANY PERTINENT INFO?YES N/A HAS THE PATIENT BEEN EDUCATED REGARDING HIS/HER PLAN OF CARE?YES HAS THE PATIENT BEEN EDUCATED REGARDING PAIN, THE RISK FOR PAIN, THE IMPORTANCE OF EFFECTIVE PAIN MANAGEMENT, AND THE PAIN ASSESSMENT PROCESS?YES ADVANCE DIRECTIVE ADVANCE DIRECTIVE DISCUSSED WITH PATIENT:YES HCP ON FILE - , AUDREY DAIGLE [phone] HOSPITALIZATION/MAJOR DIAGNOSTIC PROCEDURE SURGERY RELATED GUILLAIN BARRE REQUIRING PLASMAPHERESIS, IVIG, STEROIDS AND INTUBATION [facility] 09/2015 PNEUMONIA, ILEITIS 02/2018 VITAL SIGNS WT 173.4 LBS, HT 70 IN, BMI 24.88 INDEX, BP 150/72 MM HG, HR 86 /MIN, RR 18 /MIN, TEMP 96.3 F, OXYGEN SAT % 97%, BLOOD GLUCOSE LEVEL 105, SAFE IN ENV? (Y/N) YES, NA INITIALS SC 10:54, REVIEWED BY: SANCHO. EXAMINATION GENERAL EXAMINATION: THE PATIENT IS ALERT, ORIENTED TIMES THREE AND COOPERATIVE. HEART SHOWS REGULAR RHYTHM, NO MURMURS AND NO GALLOPS. LUNGS ARE CLEAR TO AUSCULTATION. ASSESSMENTS MYALGIA, OTHER SITE - M79.18 (PRIMARY) PROCEDURES PAIN NURSING RECORD PRE-PROCEDURE IV SITE N/A PROCEDURE IN ROOM 1046, PHYSICIAN IN ROOM 1125, START 1130, FINISH 1133, PHYSICIAN OUT OF ROOM 1134, STEROID KENALOG, O2 RA, ECG N/A, PATIENT SHIELDED NO, SAFETY STRAP NO, PREP ALCOHOL BY DR ANTOINE, IV INFUSED N/A, DRESSING TEGADERM Rosa Maria CAMPBELL RN LOC: WILBER BRENNER 04/20/2020 11:22:22 AM > , 1. ALERT, ORIENTED RESP: WILBER BRENNER 04/20/2020 11:22:27 AM > , 1. REGULAR, NO DYSPNEA COLOR: WILBER BRENNER 04/20/2020 11:22:30 AM > , 1. PINK SKIN: WILBER BRENNER 04/20/2020 11:22:34 AM > , 1. WARM, DRY POSITION: WILBER BRENNER 04/20/2020 11:22:39 AM > , 1. PRONE VITALS: 1140-126/72-80-20-97% DISCHARGE: POST PAIN 0/10, DRESSING SITE DRY AND INTACT, IV N/A, GAIT STEADY, TEACHING COMPLETED, PATIENT ACKNOWLEDGES UNDERSTANDING YES, PATIENT DISCHARGED AT 1143 PN TRIGGER POINT INJECTION WITH STEROIDS PRE PROCEDURE DIAGNOSIS 1. MYALGIA 2. PAIN AT LEFT THORACIC AREA POST PROCEDURE DIAGNOSIS 1. MYALGIA 2. PAIN AT LEFT THORACIC AREA PROCEDURE TRIGGER POINT INJECTION AT LEFT THORACIC AREA SURGEON DR. BONY ANTOINE HANDLE ASSEMBLER NONE ANESTHESIA LOCAL PRE PROCEDURE NOTE THE PATIENT HAS A HISTORY OF CHRONIC PAIN AT THE LEFT THROACIC AREA. I EVALUATED THE PATIENT AND REVIEWED THE CHART. THERE IS EVIDENCE OF BANDS OF TISSUE WITH RESTRICTION OF MOVEMENT AND PRESENCE OF TRIGGER POINT AT THE LEFT THORACIC AREA. I WENT OVER THE RISKS, ALTERNATIVES, AND BENEFITS ASSOCIATED WITH THIS PROCEDURE. I DISCUSSED THAT THE USE OF STEROIDS MAY CONTRIBUTE TO IMMUNOSUPPRESSION OF THE PATIENT'S BODY AGAINST INFECTIONS SUCH THE MONZON VIRUS, COVID-19. THE PATIENT IS AWARE OF THE POTENTIAL COMPLICATIONS ASSOCIATED WITH AN INFECTION OF THIS VIRUS INCLUDING . THE PATIENT WOULD LIKE TO PROCEED AND GIVE CONSENT TO PERFORMED THE PROCEDURE. THE PATIENT DENIES UNEXPLAINABLE WEIGHT LOSS, FEVER, CHILLS, OR NEW CHANGES IN URINARY OR BOWEL CONTROL. THE PATIENT IS COVID-19 NEGATIVE DESCRIPTION OF PROCEDURE THE PATIENT WAS BROUGHT TO THE PROCEDURE ROOM AND PLACED IN THE SITTING POSITION. THE AREA WAS CLEANED WITH ALCOHOL. THE PROCEDURE WAS DONE USING ASEPTIC STERILE TECHNIQUE. I CHECKED LATERALITY AND THE LEVEL WHERE THE PROCEDURE WAS GOING TO BE PERFORMED WITH THE PATIENT AND THE SUPPORTING STAFF AT THE MOMENT OF THE TIME OUT IN THE PROCEDURE ROOM. USING A 25-GAUGE NEEDLE, TRIGGER POINTS WERE INJECTED AT THE LEFT THORACIC AREA WITH A TOTAL OF 40 ML OF BUPIVACAINE 0.25% AND DEXAMETHASONE 10 MG. THERE WAS NO EVIDENCE OF BLOOD, PARESTHESIA OR CEREBROSPINAL FLUID DURING THE PROCEDURE. THE PATIENT WAS SENT TO THE RECOVERY ROOM. THE PATIENT WAS MOVING THE EXTREMITIES AND DOING WELL. THERE WERE NO COMPLICATIONS DURING THE PROCEDURE. EBL LESS THAN 5 ML POST PROCEDURE NOTE WE WILL PROCEED WITH THE TRIGGER POINTS TODAY; HOWEVER, I FEEL THE PATIENT SHOULD RECEIVE A THORACIC MRI WITH MARKERS TO ADDRESS THE SOFT TISSUES. THE PROCEDURE DONE WAS DISCUSSED WITH THE PATIENT. THE PATIENT WILL BE SEEN IN A FOLLOW UP IN THE NEXT FEW WEEKS. I AM LOOKING FOR LONG LASTING PAIN RELIEF FOR THE PATIENT WITH THIS INTERVENTION. INSTRUCTIONS WERE GIVEN, QUESTIONS WERE ANSWERED, AND THE PATIENT EXPRESSED UNDERSTANDING AND AGREES WITH THE PLAN. THE PATIENT IS AWARE TO STAY HOME FOR THE NEXT WEEK, IF POSSIBLE, DUE TO COVID-19. I, SELAM VARELA, DOCUMENTED THE ABOVE INFORMATION ACTING A SCRIBE FOR DR. ANTOINE. I HAVE REVIEWED THE ABOVE DOCUMENT, WRITTEN BY SELAM VARELA, WASTE ELIMINATION, AND I VERIFY THAT IT IS ACCURATE PROCEDURE CODES 58492 INJ TRIGGER POINT 1/2 MUSCL DISPOSITION & COMMUNICATION FOLLOW UP F/UP WITH CIVILIAN TECHNICIAN (REASON: POST TPI MID THORACIC) ELECTRONICALLY SIGNED BY BONY ANTOINE MD, MD ON 04/20/2020 AT 05:37 PM EDT DISCLAIMER : THIS IS A VISIT SUMMARY EXTRACTED FROM THE [employer] CHART. IT IS NOT A COPY OF THE [employer] [facility] PROGRESS NOTE. TERESA
== END ==
LOC: M PAIN 11:45
PROVIDERS: ATTEND Anesthesiology
DX: M79.18 Myalgia, other site (principal)
CPT/HCPCS: 20552; J1100

== ENCOUNTER 2020-05-03 11:04 | Outpatient (CLI) | payer OTHER ==
[2020-05-03] VITALS (7 sets, daily range): BP systolic 138–172; BP diastolic 68–83
[~2020-05-03] VITALS: Ht 180.3 cm; Wt 72.7 kg
[2020-05-03] MEDS ORDERED: ACETAMINOPHEN 650MG PO PRIOR TO INFUSION PO ONE (11:45)
[2020-05-03] MEDS ORDERED: diphenhydrAMINE 50MG PO PRIOR TO INFUSION PO ONE (11:45)
[2020-05-03] MEDS ORDERED: inFLIXimab INJECTION 400 MG in NS 210 ML IV ONE (11:45)
[2020-05-03] MEDS ORDERED: NS 1,000 ML IV SCH (11:45)
== END 2020-05-03 14:30 | disposition home or self-care (01) ==
LOC: M INFU 11:04
PROVIDERS: ATTEND Internal Medicine Gastroenterology
DX: K50.90 Crohn's disease, unspecified, without complications (principal)
CPT/HCPCS: 96413; 96415; J1745

== ENCOUNTER → 2020-05-03 | Outpatient (CLI) | payer OTHER ==
[~2020-05-03] MED LIST changes: +AMLO1TAB24 PO; -AMLO5TAB6 PO; -ASPI81TA85 PO; +ASPI81TA86 PO; -BUPIVACAINE HCL 0.25% 10ML VIAL As Ordered ONE; -BUPIVACAINE HCL 0.25% 30ML VIAL As Ordered ONE; +CYAN500T10 PO; -CYAN500T9 PO; -MELA5TAB31 PO; +MELA5TAB36 PO; -dexameTHASONE 10MG/1ML VIAL PRES.FREE (J1100 PER 1MG) As Ordered ONE
[2020-05-03 11:55] LABS: HEMATOCRIT 40.7 % (42.0-52.0); HEMOGLOBIN 13.5 g/dl (13.5-17.5); MEAN CORPUSCULAR HGB CONC 33.2 g/dl (32.0-36.5); MEAN CORPUSCULAR VOLUME 90.4 fl (80.0-96.0); PLATELET COUNT, AUTOMATED 193 10^3/uL (150-450); WHITE BLOOD COUNT 4.6 10^3/uL (4.0-10.0)
[2020-05-03 12:16] LABS: ALBUMIN 3.3 GM/DL (3.2-5.2); ALT/SGPT 15 U/L (12-78); BILIRUBIN,TOTAL 0.5 MG/DL (0.2-1.0); BLOOD UREA NITROGEN 15 MG/DL (7-18); C REACTIVE PROTEIN QUANTITATIV < 0.30 MG/DL (0.00-0.30); CALCIUM LEVEL 8.9 MG/DL (8.5-10.1); CARBON DIOXIDE LEVEL 32 MEQ/L (21-32); CHLORIDE LEVEL 107 MEQ/L (98-107); CREATININE FOR GFR 0.77 MG/DL (0.70-1.30); GLOMERULAR FILTRATION RATE > 60.0 (>56); GLUCOSE, FASTING 125 MG/DL (70-100); POTASSIUM SERUM 3.7 MEQ/L (3.5-5.1); SODIUM LEVEL 143 MEQ/L (136-145); TOTAL PROTEIN 5.9 GM/DL (6.4-8.2)
[2020-05-03 12:28] LABS: ERYTHROCYTE SEDIMENTATION RATE 9 mm/hr (0-20)
== END ==
LOC: M LAB 11:07
PROVIDERS: ATTEND Internal Medicine Gastroenterology
DX: R10.84 Generalized abdominal pain (principal); K50.00 Crohn's disease of small intestine without complications; R19.7 Diarrhea, unspecified; K44.9 Diaphragmatic hernia without obstruction or gangrene; K21.9 Gastro-esophageal reflux disease without esophagitis; R11.0 Nausea

== ENCOUNTER → 2020-05-10 | Outpatient (CLI) | payer OTHER ==
[~2020-05-10] MED LIST changes: -AMLO1TAB24 PO; +AMLO5TAB6 PO; +ASPI81TA85 PO; -ASPI81TA86 PO; -CYAN500T10 PO; +CYAN500T9 PO; +MELA5TAB31 PO; -MELA5TAB36 PO
--- NOTE | 2020-05-23 03:56 | ECWPNPC ---
PATIENT NAME: HAI DAIGLE : 1965 GENDER: MALE VISIT DATE: 05/10/2020 DISCHARGE DATE: 05/10/20940 VISIT LOCKED DATE TIME: PHYSICIAN: BRITT LANCASTER RESOURCE: BRITT LANCASTER REASON FOR APPOINTMENT 1. POST TPI MID THORACIC HISTORY OF PRESENT ILLNESS GENERAL: HERE FOR POST PROCEDURE FOLLOW-UP. HAD TRIGGER POINT INJECTIONS THORACIC ON 04/20/2020. REPORTING RESOLUTION OF HIS PAIN. REPORTING OVERALL FEELING WELL. NO COMPLAINTS OF PAIN TODAY. HAS NOT HAD TO USE PAIN MEDICATION. -. FALL RISK SCREENING: SCREENING :NO FALLS REPORTED IN THE LAST YEAR PAIN SCREENING: PATIENT HAS A COMPLAINT OF ACUTE OR CHRONIC PAIN :NO NURSING NOTE: -. PAIN CENTER INTAKE QUESTIONS: DO YOU HAVE A HISTORY OF MRSA? :NO DO YOU TAKE A BLOOD THINNERS? :NO DO YOU HAVE ANY BLEEDING DISORDERS? :NO ANY NEW NUMBNESS OR WEAKNESS IN YOUR LEGS OR ARMS? :YES SLIGHT WEAKNESS IN LEGS. PT STATES DR TOLD HIM IT IS DUE TO REMICADE INFUSION ANY PACEMAKER,DEFIBRILLATOR, OR DORSAL COLUMN STIMULATOR? :NO DO YOU HAVE ANY RASHES OR OPEN SORES? :NO ARE YOU ALLERGIC TO IV DYE? :NO ARE YOU DIABETIC? :NO ANY NEW PROBLEMS WITH YOUR MEDICATIONS? :NO HAVE YOU RECEIVED A VACCINE IN THE PAST 30 DAYS? :NO DO YOU PLAN TO RECEIVE A VACCINE IN THE NEXT 21 DAYS? :NO DO YOU NEED ANY PRESCRIPTION? :NO DO YOU TAKE ANY IMMUNOSUPPRESSIVE MEDICATIONS? :NO IS THERE A CHANCE YOU COULD BE ? :NO ARE YOU BREAST FEEDING? :NO CURRENT MEDICATIONS TAKING ASPIR-81 81 MG TABLET DELAYED RELEASE 1 TABLET ORALLY EVERY OTHER DAY TAKING CITRACAL PLUS 400MG TABLET 2 TABS ORALLY AT BEDTIME TAKING FLECAINIDE ACETATE 50 MG TABLET 1 TABLET ORALLY EVERY 12 HRS TAKING VITAMIN D3 MAXIMUM STRENGTH 5000 UNIT CAPSULE 1 CAPSULE ORALLY DAILY TAKING VITAMIN B-12 500 MCG TABLET 1 TABLET ORALLY ONCE A DAY TAKING TRULICITY 0.75 MG/0.5ML SOLUTION PEN-INJECTOR SUBCUTANEOUS WEEKLY TAKING PRILOSEC 40 MG CAPSULE DELAYED RELEASE 1/2 CAPSULE ORALLY ONCE A DAY TAKING METFORMIN HCL 1000 MG TABLET 1 TABLET WITH MEALS ORALLY TWICE DAILY TAKING PROBIOTIC 1 CAPSULE 1 CAP ORALLY DAILY TAKING MAGNESIUM 400 MG CAPSULE 1 CAP ORALLY BID TAKING BISOPROLOL FUMARATE 5 MG TABLET 1 TABLET ORALLY ONCE A DAY TAKING LIPITOR 10 MG TABLET 1 TABLET ORALLY ONCE A DAY TAKING MULTI FOR HIM TABLET 2 TABS ORALLY DAILY TAKING TAMSULOSIN HCL 0.4 MG CAPSULE 1 CAPSULE ONCE A DAY TAKING ZOFRAN 8 MG TABLET 1 TABLET ORALLY Q 8 HOURS NEEDED, NOTES: PRN TAKING LOSARTAN POTASSIUM 25 MG TABLET 1 TABLET ORALLY ONCE A DAY TAKING DICYCLOMINE HCL 20 MG TABLET 1 TABLET NEEDED ORALLY QID, NOTES: PRN TAKING COLESTIPOL HCL 1 GM TABLET 1 TABLET ORALLY BID TAKING MELATONIN 5 MG TABLET 1 TABLET AT BEDTIME NEEDED WITH FOOD ORALLY ONCE A DAY, NOTES: PRN TAKING JARDIANCE 25 MG TABLET 1 TABLET ORALLY ONCE A DAY TAKING POTASSIUM CHLORIDE 20 MEQ TABLET EXTENDED RELEASE 1 TABLET WITH FOOD ORALLY ONCE A DAY TAKING COLCRYS 0.6 MG TABLET 1 TABLET PRN ORALLY ONCE A DAY TAKING CYMBALTA 60 MG CAPSULE DELAYED RELEASE PARTICLES 1 CAPSULE ORALLY BEFORE BEDTIME TAKING TIZANIDINE HCL 2 MG TABLET 1 TABLET NEEDED ORALLY EVERY 8 HRS, NOTES: PRN TAKING GABAPENTIN 300 MG CAPSULE 1 CAPSULE ORALLY BEFORE BEDTIME TAKING SOMA 350 MG TABLET 1 TABLET NEEDED ORALLY FOR SPASMS AND PAIN EVERY 12 HOURS NEEDED MDD2 TAKING PERCOCET 5-325 MG TABLET 1 TABLET NEEDED ORALLY EVERY 6 HRS MDD4, NOTES: PRN NOT-TAKING AMLODIPINE BESYLATE 2.5 MG TABLET 1 TABLET ORALLY ONCE A DAY NOT-TAKING POTASSIUM BICARB & CHLORIDE 20 MEQ PACKET 2 TABS ORALLY TWICE A DAY NOT-TAKING SPIRONOLACTONE 25 MG TABLET 1 TABLET ORALLY ONCE A DAY NOT-TAKING TOPIRAMATE 50 MG TABLET 1 TABLET ORALLY BEFORE BEDTIME NOT-TAKING PERCOCET 5-325 MG TABLET 1 TO 2 TAB ORALLY Q6H PRN MDD 4, NOTES: DUPLICATE NOT-TAKING ENTOCORT EC 3 MG CAPSULE DELAYED RELEASE PARTICLES DIRECTED ORALLY , NOTES: 2 WEEKS MEDICATION LIST REVIEWED AND RECONCILED WITH THE PATIENT PAST MEDICAL HISTORY DIABETES MIGRAINES PAF - INTERMITTENT A-FIB HTN GERD HIGH CHOLESTEROL GUILLAIN BARRE PNEUMONIA ILIEITIS A FIB WITH RVR DIVERTICULITIS BPH ED MULTIPLE GI PROBLEMS CHRON'S ALLERGIES SURGICAL GLUE: RASH, ITCHING - ALLERGY SURGICAL HISTORY BOWEL RESECTION 2013 RIGHT KNEE ARTHROSCOPY, LEFT ALSO DONE YEARS LATER 2013 GASTRIC BYPASS RIGHT INGUINAL HERNIA REPAIR 06/24/18 CHOLECYSTECTOMY 11/2018 EGD 12/2019 EXPLORATORY LAP 12/2019 FAMILY HISTORY FATHER: , DIAGNOSED WITH DIABETES, OTHER MALIGNANT NEOPLASM OF UNSPECIFIED SITE MOTHER: , HYPERTENSION, DIABETES, OTHER SPECIFIED CONDITIONS INFLUENCING HEALTH STATUS SIBLINGS: ALIVE 4 BROTHER(S) , 2 SISTER(S) . 1 SON(S) , 1 DAUGHTER(S) - HEALTHY. 1 SISTER . 1 SISTER HAS ALOT OF MEDICAL ISSUES ALSO. SOCIAL HISTORY GENERAL: TOBACCO USE ARE YOU A:NONSMOKER LATEX QUESTIONNAIRE LATEX ALLERGY : HAVE YOU EVER DEVELOPED ANY TYPE OF REACTION AFTER HANDLING LATEX PRODUCTS SUCH RUBBER GLOVES, CONDOMS, DIAPHRAGMS, BALLOONS, SOCKS, OR UNDERWEAR?NO LATEX ALLERGY : HAVE YOU EVER DEVELOPED ANY TYPE OF REACTION DURING OR AFTER DENTAL APPOINTMENT, VAGINAL/RECTAL EXAMINATION, SURGICAL PROCEDURE, OR ANY OTHER EXPOSURE?NO LATEX RISK : HAVE YOU EVER HAD ANY DIFFICULTY BREATHING OR HIVES AFTER EATING OR HANDLING ANY FRUITS, OR VEGETABLES; SUCH KIWI, BANANAS, STONE FRUITS, OR CHESTNUTSNO LATEX RISK : DO YOU HAVE A PREVIOUS PERSONAL HISTORY OF MORE THAN NINE SURGERIES, SPINA BIFIDA, OR REPEATED CATHERIZATIONS? NO LATEX RISK : ARE YOU FREQUENTLY EXPOSED TO LATEX PRODUCTS IN YOUR OCCUPATION?NO DATE ASKED : 04/19/2020 ALCOHOL SCREENING DID YOU HAVE A DRINK CONTAINING ALCOHOL IN THE PAST YEAR?YES HOW OFTEN DID YOU HAVE SIX OR MORE DRINKS ON ONE OCCASION IN THE PAST YEAR?NEVER (0 POINTS) HOW MANY DRINKS DID YOU HAVE ON A TYPICAL DAY WHEN YOU WERE DRINKING IN THE PAST YEAR?1 OR 2 (0 POINTS) HOW OFTEN DID YOU HAVE A DRINK CONTAINING ALCOHOL IN THE PAST YEAR?MONTHLY OR LESS (1 POINT) POINTS1 INTERPRETATIONNEGATIVE RECREATIONAL DRUG USE DRUG USE?NO CAFFEINE CAFFEINE USE?YES 1-2 SODA/DAY SEXUAL HX HAD SEX IN THE LAST 12 MONTHS (VAGINAL, ORAL, OR ANAL)?NO HAVE YOU EVER HAD AN STD?NO MU-ISM MU-ISM NO TAOIST BELIEFS THAT WOULD IMPACT HEALTH CARE. 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 EXERCISE: WALKS. MARITAL STATUS: . OTHERS AT HOME: SPOUSE. PAIN CLINIC PFS, CLERGY, PUBLIC HEALTH REFERRALS PFS REFERRAL NEEDED?NO CLERGY REFERRAL NEEDED?NO PUBLIC [facility] REFERRAL NEEDED?NO WAS THE PROVIDER NOTIFIED OF ANY PERTINENT INFO?YES N/A HAS THE PATIENT BEEN EDUCATED REGARDING HIS/HER PLAN OF CARE?YES HAS THE PATIENT BEEN EDUCATED REGARDING PAIN, THE RISK FOR PAIN, THE IMPORTANCE OF EFFECTIVE PAIN MANAGEMENT, AND THE PAIN ASSESSMENT PROCESS?YES ADVANCE DIRECTIVE ADVANCE DIRECTIVE DISCUSSED WITH PATIENT:YES HCP ON FILE - , AUDREY DAIGLE [phone] HOSPITALIZATION/MAJOR DIAGNOSTIC PROCEDURE SURGERY RELATED GUILLAIN BARRE REQUIRING PLASMAPHERESIS, IVIG, STEROIDS AND INTUBATION [facility] 09/2015 PNEUMONIA, ILEITIS 02/2018 REVIEW OF SYSTEMS CONSTITUTIONAL: ANY RECENT FEVER NO . CHILLS NO . WEIGHT CHANGE OF UNKNOWN REASONS NO . GASTROENTEROLOGY: NEW UNEXPLAINABLE CHANGES IN BOWEL CONTROL NO . CONSTIPATION NO . GENITOURINARY: ANY NEW CHANGE IN BLADDER CONTROL? NO . NEUROLOGY: NEW ONSET DIZZINESS OR NEUROLOGICAL CHANGES NOT MENTIONED NO . NEW NUMBNESS OR PAIN PATTERNS NOT MENTIONED AND PERTINENT TO TODAY'S VISIT NO . CARDIOLOGY: NEW CHEST PRESSURE NO . NEW CHEST PAIN NO . RESPIRATORY: UNEXPLAINABLE COUGH NO . NEW SHORTNESS OF BREATH NO . VITAL SIGNS WT 170.6 LBS, HT 70 IN, BMI 24.48 INDEX, BP 171/88 MM HG, HR 76 /MIN, RR 18 /MIN, TEMP 97.6 F, OXYGEN SAT % 100%, NA INITIALS AW 0908. EXAMINATION GENERAL EXAMINATION: GENERALAWAKE,ALERT ,PLEASANT . PSYCHAFFECT NORMAL . LUNGS:LUNG VALLADARES ARE CLEAR TO AUSCULTATION BILATERALLY. GOOD MOVEMENT OF AIR . HEART:S1, S2 IN A REGULAR RATE AND RHYTHM. NO SIGNIFICANT MURMURS, RUBS OR GALLOPS NOTED . ASSESSMENTS MYALGIA, OTHER SITE - M79.18 (PRIMARY) TREATMENT MYALGIA, OTHER SITE CONTINUE GABAPENTIN CAPSULE, 300 MG, 1 CAPSULE, ORALLY, BEFORE BEDTIME CONTINUE SOMA TABLET, 350 MG, 1 TABLET NEEDED, ORALLY FOR SPASMS AND PAIN, EVERY 12 HOURS NEEDED MDD2 CONTINUE PERCOCET TABLET, 5-325 MG, 1 TABLET NEEDED, ORALLY, EVERY 6 HRS MDD4, NOTES: PRN NOTES: ISTOP REGISTRY REVIEWED AND DEMONSTRATES COMPLLIANCE. BRINGS IN MEDICATIONS WHICH IS APPROPRIATE FOR WHAT WAS DISPENSED. RECENT URINE TOXICOLOGY REVIEWED. NO UNAUTHORIZED MEDICATIONS. NO ILLICIT SUBSTANCES AND PRESCRIBED MEDICATIONS WERE PRESENT. URINE TOX TODAY , RISKS OF NARCOTIC/OPIOD MEDICATIONS INCLUDES BUT IS NOT LIMITED TO RISK OF DEPENDANCE/DEVELOPMENT OF ADDICTION, MOOD DISTURBANCE AND DEPRESSION, OSTEOPOROSIS, HORMONAL AND LABIDAL CHANGES, RESPIRATORY DEPRESSION AND . PATIENT IS ADVISED NOT TO DRIVE OR DRINK ALCOHOL WHILE ON THESE MEDICATIONS. PROCEDURE CODES FA211 ESTABILISHED PATIENT [facility] CHARGE DISPOSITION & COMMUNICATION FOLLOW UP 3 MONTHS (REASON: NECK/THORACIC PAINMED MANAGEMENT) ELECTRONICALLY SIGNED BY MARTÍN GOLDBERG ON 05/22/2020 AT 03:18 PM EDT DISCLAIMER : THIS IS A VISIT SUMMARY EXTRACTED FROM THE [employer] CHART. IT IS NOT A COPY OF THE [employer] PROGRESS NOTE. TERESA
== END ==
LOC: M PAIN 09:00
PROVIDERS: ATTEND Nurse Practitioner Family
DX: M79.18 Myalgia, other site (principal)

== ENCOUNTER 2020-06-14 08:00 | Outpatient (CLI) | payer OTHER ==
[~2020-06-14 08:00] MED LIST changes: +AMLO1TAB24 PO; -AMLO5TAB6 PO; -ASPI81TA85 PO; +ASPI81TA86 PO; +CYAN500T10 PO; -CYAN500T9 PO; -MELA5TAB31 PO; +MELA5TAB36 PO; +inFLIXimab 100MG/10ML VIAL (REMICADE) J1745 PER 10MG ONE
[2020-06-14] MEDS ORDERED: ACETAMINOPHEN TAB 650MG DOSE (2X325MG) As Ordered ONE (08:14)
[2020-06-14] MEDS ORDERED: diphenhydrAMINE 50MG CAP As Ordered ONE (08:14)
== END 2020-06-14 10:50 | disposition home or self-care (01) ==
LOC: M INFU 08:00
PROVIDERS: ATTEND Internal Medicine Gastroenterology
DX: K50.90 Crohn's disease, unspecified, without complications (principal)
CPT/HCPCS: 96413; 96415; J1745

== ENCOUNTER 2020-06-14 13:05 | Emergency (ER) | payer OTHER ==
[~2020-06-14 13:05] MED LIST changes: +ISOVUE-370 76% 100ML VIAL As Ordered ONE; +KETOROLAC 30 MG/ML 1ML VIAL As Ordered ONE; +MECLIZINE 25 MG TABLET As Ordered ONE; +METOCLOPRAMIDE INJ 10MG/2ML VIAL (J2765 PER 1) As Ordered ONE; +ONDANSETRON 4 MG ORAL DISINTEGRATING TAB As Ordered ONE; +dexameTHASONE 20MG/5ML VIAL (J1100 PER 1MG) As Ordered ONE; -inFLIXimab 100MG/10ML VIAL (REMICADE) J1745 PER 10MG ONE
[2020-06-14] MEDS ORDERED: LORazepam 2 MG/ML VIAL As Ordered ONE (13:41)
--- NOTE | 2020-07-27 16:55 | ECGEPIP ---
SINUS RHYTHM SEE SCANNED DOWNTIME REPORT MTDD
[2020-07-30 10:41] LABS: PARTIAL THROMBOPLASTIN TIME 38.1 SECONDS (24.2-38.5); PROTHROMBIN TIME 13.4 SECONDS (12.5-14.3)
[2020-07-30 11:38] LABS: BASO % 0.7 % (0.0-1.0); EOS # 0.2 10^3/uL (0.0-0.5); EOS % 4.2 % (0.0-3.0); HEMATOCRIT 44.8 % (42.0-52.0); HEMOGLOBIN 14.8 g/dl (13.5-17.5); LYMPH # 1.3 10^3/uL (1.5-5.0); LYMPH % 28.4 % (24.0-44.0); MEAN CORPUSCULAR HEMOGLOBIN 29.7 pg (27.0-33.0); MEAN CORPUSCULAR VOLUME 89.8 fl (80.0-96.0); MONO # 0.5 10^3/uL (0.0-0.8); MONO % 10.1 % (0.0-5.0); NEUTROPHILS # 2.6 10^3/uL (1.5-8.5); NEUTROPHILS % 56.4 % (36.0-66.0); PLATELET COUNT, AUTOMATED 194 10^3/uL (150-450); RED BLOOD COUNT 4.99 10^6/uL (4.30-6.10); WHITE BLOOD COUNT 4.6 10^3/uL (4.0-10.0)
[2020-09-08 13:58] LABS: BLOOD UREA NITROGEN 16 MG/DL (7-18); CALCIUM LEVEL 8.8 MG/DL (8.5-10.1); CARBON DIOXIDE LEVEL 31 MEQ/L (21-32); CHLORIDE LEVEL 107 MEQ/L (98-107); CHOLESTEROL LEVEL 131 MG/DL (<200); CHOLESTEROL RISK RATIO 3.046 (<5); GLOMERULAR FILTRATION RATE > 60.0 (>56); GLUCOSE, FASTING 96 MG/DL (70-100); HDL CHOLESTEROL 43 MG/DL (>40); LDL CHOLESTEROL 63 MG/DL (<100); NON-HDL-C 88 MG/DL; POTASSIUM SERUM 3.8 MEQ/L (3.5-5.1); SODIUM LEVEL 141 MEQ/L (136-145); TRIGLYCERIDES LEVEL 124 MG/DL (<150); TROPONIN I 0.02 NG/ML (< 0.10)
== END 2020-06-14 17:30 | disposition home or self-care (01) ==
LOC: M ED 13:05
DX: G43.809 Other migraine, not intractable, without status migrainosus (principal); I48.91 Unspecified atrial fibrillation; K50.90 Crohn's disease, unspecified, without complications; Z79.899 Other long term (current) drug therapy; Z79.84 Long term (current) use of oral hypoglycemic drugs; Z79.82 Long term (current) use of aspirin
CPT/HCPCS: 70450; 70496; 70498; 70544; 70551; 71046; 80048; 80061; 84484; 85025; 85610; 85730; 86850; 86900; 86901; 93005; 96374; 96375; 99284; J1100; J1885; J2060; J2765; Q0162; Q9967

== ENCOUNTER → 2020-06-29 | Outpatient (CLI) | payer OTHER ==
[~2020-06-29] MED LIST changes: -ISOVUE-370 76% 100ML VIAL As Ordered ONE; -KETOROLAC 30 MG/ML 1ML VIAL As Ordered ONE; -MECLIZINE 25 MG TABLET As Ordered ONE; -METOCLOPRAMIDE INJ 10MG/2ML VIAL (J2765 PER 1) As Ordered ONE; -ONDANSETRON 4 MG ORAL DISINTEGRATING TAB As Ordered ONE; -dexameTHASONE 20MG/5ML VIAL (J1100 PER 1MG) As Ordered ONE
== END ==
LOC: M LAB 07:37
PROVIDERS: ATTEND Internal Medicine Gastroenterology
DX: K50.00 Crohn's disease of small intestine without complications (principal)

== ENCOUNTER → 2020-07-11 | Outpatient (CLI) | payer OTHER | LOC: M PAIN 08:42 | PROVIDERS: ATTEND Nurse Practitioner Family | DX: M46.1 Sacroiliitis, not elsewhere classified (principal) ==

== ENCOUNTER → 2020-07-15 | Outpatient (CLI) | payer OTHER | LOC: M LABSMTC 10:46 | PROVIDERS: ATTEND Anesthesiology | DX: Z11.59 Encounter for screening for other viral diseases (principal) | CPT/HCPCS: C9803; U0003 ==

== ENCOUNTER → 2020-07-19 | Outpatient (CLI) | payer OTHER | LOC: M LABSMTC 13:34 | PROVIDERS: ATTEND Anesthesiology | DX: Z11.59 Encounter for screening for other viral diseases (principal) ==

== ENCOUNTER → 2020-07-20 | Outpatient (CLI) | payer OTHER ==
[~2020-07-20] MED LIST changes: +BUPIVACAINE HCL 0.25% 30ML VIAL As Ordered ONE; +ISOVUE-M 300 61% 15ML VIAL As Ordered ONE; +LIDOCAINE 1% SDV 30ML VIAL As Ordered ONE; +NORCO, ANEXSIA 5/325MG TABLET (HYDROcodone/ACETAMINOPHEN) As Ordered ONE; +TRIAMCINOLONE ACETONIDE SUSP 40 MG/ML VIAL (J3301) As Ordered ONE; +diazePAM 2 MG TAB As Ordered ONE
--- NOTE | 2020-08-09 11:42 | REP ---
FLUOROSCOPY-GUIDED SPINE INJECTION: CLINICAL: Left sacroiliac joint block. TECHNIQUE: Intraoperative fluoroscopic imaging using portable C-arm technique. FINDINGS: Two images demonstrate needle overlying the left sacroiliac joints. Total fluoroscopic time is 9 seconds. IMPRESSION: Status post left sacroiliac block. MTDD
== END ==
LOC: M PAIN 13:46
PROVIDERS: ATTEND Anesthesiology
DX: M46.1 Sacroiliitis, not elsewhere classified (principal)

== ENCOUNTER → 2020-07-31 | Outpatient (CLI) | payer OTHER ==
[~2020-07-31] MED LIST changes: -BUPIVACAINE HCL 0.25% 30ML VIAL As Ordered ONE; -ISOVUE-M 300 61% 15ML VIAL As Ordered ONE; -LIDOCAINE 1% SDV 30ML VIAL As Ordered ONE; -NORCO, ANEXSIA 5/325MG TABLET (HYDROcodone/ACETAMINOPHEN) As Ordered ONE; -TRIAMCINOLONE ACETONIDE SUSP 40 MG/ML VIAL (J3301) As Ordered ONE; -diazePAM 2 MG TAB As Ordered ONE
== END ==
LOC: M PAIN 10:07
PROVIDERS: ATTEND Nurse Practitioner Family
DX: M47.816 Spondylosis without myelopathy or radiculopathy, lumbar region (principal)

== ENCOUNTER → 2020-08-05 | Outpatient (CLI) | payer OTHER | LOC: M LABSMTC 07:47 | PROVIDERS: ATTEND Anesthesiology | DX: Z20.828 Contact with and (suspected) exposure to other viral communicable diseases (principal) | CPT/HCPCS: C9803; U0003 ==

== ENCOUNTER → 2020-08-10 | Outpatient (CLI) | payer OTHER ==
[~2020-08-10] MED LIST changes: +BUPIVACAINE HCL 0.25% 30ML VIAL As Ordered ONE; +ISOVUE-M 300 61% 15ML VIAL As Ordered ONE; +LIDOCAINE 1% SDV 30ML VIAL As Ordered ONE; +TRIAMCINOLONE ACETONIDE SUSP 40 MG/ML VIAL (J3301) As Ordered ONE; +diazePAM 5 MG TAB As Ordered ONE; +oxyCODONE 5MG TAB As Ordered ONE
--- NOTE | 2020-08-10 17:09 | ECWPNPC ---
PATIENT NAME: HAI DAIGLE : 1965 GENDER: MALE VISIT DATE: 08/10/2020 DISCHARGE DATE: 08/10/20 1559 VISIT LOCKED DATE TIME: PHYSICIAN: BONY ANTOIEN MD RESOURCE: BONY ANTOINE MD REASON FOR APPOINTMENT 1. BILATERAL THERA LUMBAR FACET L4-L5,L5-S1 HISTORY OF PRESENT ILLNESS GENERAL: -. FALL RISK SCREENING: SCREENING :NO FALLS REPORTED IN THE LAST YEAR PAIN SCREENING: PATIENT HAS A COMPLAINT OF ACUTE OR CHRONIC PAIN :YES LOCATION OF PAIN:LOW BACK, LEFT HIP, RIGHT HIP, THIGH(S) LEFT THIGH INTENSITY OF PAIN (SCALE OF 1 TO 10):8 WHAT DOES YOUR PAIN FEEL LIKE:CONTINOUS, SHOOTING DURATION:CONTINOUS, CONSTANT, STEADY, ALL DAY PAIN IS INCREASED BY:ACTIVITIES, PROLONGED STANDING PAIN IS DECREASED BY:USE OF PAIN MEDICATIONS, SITTING NURSING NOTE: -. PAIN CENTER INTAKE QUESTIONS: DO YOU HAVE A HISTORY OF MRSA? :NO DO YOU TAKE A BLOOD THINNERS? :NO DO YOU HAVE ANY BLEEDING DISORDERS? :NO ANY NEW NUMBNESS OR WEAKNESS IN YOUR LEGS OR ARMS? :NO ANY PACEMAKER,DEFIBRILLATOR, OR DORSAL COLUMN STIMULATOR? :NO DO YOU HAVE ANY RASHES OR OPEN SORES? :YES RIGHT ARM SCRATCHES ARE YOU ALLERGIC TO IV DYE? :NO ARE YOU DIABETIC? :YES FSBS 101 TODAY ANY NEW PROBLEMS WITH YOUR MEDICATIONS? :NO HAVE YOU RECEIVED A VACCINE IN THE PAST 30 DAYS? :NO DO YOU PLAN TO RECEIVE A VACCINE IN THE NEXT 21 DAYS? :NO DO YOU TAKE ANY IMMUNOSUPPRESSIVE MEDICATIONS? :NO ANY HISTORY OF SEIZURES? :NO ANY HISTORY OF CARDIAC ISSUES OR EVENTS? :NO DO YOU HAVE SLEEP APNEA? :NO ANY RECENT HEAD INJURY? :NO DO YOU HAVE ANY NEW INFECTIONS? :NO IS THERE A CHANCE YOU COULD BE ? :NO ARE YOU BREAST FEEDING? :NO WHEN DID YOU LAST EAT? : 08/10/2020 0430 WHEN DID YOU LAST DRINK? : 08/10/2020 0900 WHAT DID YOU LAST DRINK? : WATER NAME OF PERSON DRIVING YOU HOME? : AUDREY DAIGLE () DO YOU HAVE ANY OTHER QUESTIONS OR CONCERNS? : - CURRENT MEDICATIONS TAKING ASPIR-81 81 MG TABLET DELAYED RELEASE 1 TABLET ORALLY EVERY OTHER DAY, NOTES: 08/09/2020 0403 TAKING CITRACAL PLUS 400MG TABLET 2 TABS ORALLY AT BEDTIME, NOTES: 0500 TAKING FLECAINIDE ACETATE 50 MG TABLET 1 TABLET ORALLY EVERY 12 HRS, NOTES: 0500 TAKING VITAMIN D3 MAXIMUM STRENGTH 5000 UNIT CAPSULE 1 CAPSULE ORALLY DAILY, NOTES: 0500 TAKING VITAMIN B-12 500 MCG TABLET 1 TABLET ORALLY ONCE A DAY, NOTES: 0500 TAKING TRULICITY 0.75 MG/0.5ML SOLUTION PEN-INJECTOR SUBCUTANEOUS WEEKLY, NOTES: 08/05/2020 TAKING PRILOSEC 40 MG CAPSULE DELAYED RELEASE 1/2 CAPSULE ORALLY ONCE A DAY, NOTES: 0500 TAKING METFORMIN HCL 1000 MG TABLET 1 TABLET WITH MEALS ORALLY TWICE DAILY, NOTES: 08/09/20201999 TAKING PROBIOTIC 1 CAPSULE 1 CAP ORALLY DAILY, NOTES: 0500 TAKING MAGNESIUM 400 MG CAPSULE 1 CAP ORALLY BID, NOTES: 0500 TAKING BISOPROLOL FUMARATE 5 MG TABLET 1 TABLET ORALLY ONCE A DAY, NOTES: 0500 TAKING LIPITOR 10 MG TABLET 1 TABLET ORALLY ONCE A DAY, NOTES: 0500 TAKING MULTI FOR HIM TABLET 2 TABS ORALLY DAILY, NOTES: 0500 TAKING TAMSULOSIN HCL 0.4 MG CAPSULE 1 CAPSULE ONCE A DAY, NOTES: 0500 TAKING ZOFRAN 8 MG TABLET 1 TABLET ORALLY Q 8 HOURS NEEDED, NOTES: PRN; 0500 TAKING LOSARTAN POTASSIUM 25 MG TABLET 1 TABLET ORALLY ONCE A DAY, NOTES: 0500 TAKING DICYCLOMINE HCL 20 MG TABLET 1 TABLET NEEDED ORALLY QID, NOTES: PRN; NONE RECENT TAKING COLESTIPOL HCL 1 GM TABLET 1 TABLET ORALLY BID, NOTES: 08/09/20201999 TAKING JARDIANCE 25 MG TABLET 1 TABLET ORALLY ONCE A DAY, NOTES: 08/09/2020 0430 TAKING POTASSIUM CHLORIDE 20 MEQ TABLET EXTENDED RELEASE 1 TABLET WITH FOOD ORALLY ONCE A DAY, NOTES: 0500 TAKING COLCRYS 0.6 MG TABLET 1 TABLET PRN ORALLY ONCE A DAY, NOTES: NONE RECENT TAKING CYMBALTA 60 MG CAPSULE DELAYED RELEASE PARTICLES 1 CAPSULE ORALLY BEFORE BEDTIME, NOTES: 0500 TAKING TIZANIDINE HCL 2 MG TABLET 1 TABLET NEEDED ORALLY EVERY 8 HRS, NOTES: PRN; NONE RECENT TAKING GABAPENTIN 300 MG CAPSULE 1 CAPSULE ORALLY BEFORE BEDTIME, NOTES: 08/09/20201999 TAKING SOMA 350 MG TABLET 1 TABLET NEEDED ORALLY FOR SPASMS AND PAIN EVERY 12 HOURS NEEDED MDD2, NOTES: 08/09/20201999 TAKING PERCOCET 5-325 MG TABLET 1 TABLET NEEDED ORALLY EVERY 6 HRS MDD4, NOTES: PRN; 08/09/20201999 TAKING TRAZODONE HCL 100 MG TABLET 1 TABLET AT BEDTIME ORALLY ONCE A DAY, NOTES: 08/09/20201999 NOT-TAKING MELATONIN 5 MG TABLET 1 TABLET AT BEDTIME NEEDED WITH FOOD ORALLY ONCE A DAY, NOTES: PRN NOT-TAKING AMLODIPINE BESYLATE 2.5 MG TABLET 1 TABLET ORALLY ONCE A DAY NOT-TAKING POTASSIUM BICARB & CHLORIDE 20 MEQ PACKET 2 TABS ORALLY TWICE A DAY NOT-TAKING SPIRONOLACTONE 25 MG TABLET 1 TABLET ORALLY ONCE A DAY NOT-TAKING TOPIRAMATE 50 MG TABLET 1 TABLET ORALLY BEFORE BEDTIME NOT-TAKING PERCOCET 5-325 MG TABLET 1 TO 2 TAB ORALLY Q6H PRN MDD 4, NOTES: DUPLICATE NOT-TAKING ENTOCORT EC 3 MG CAPSULE DELAYED RELEASE PARTICLES DIRECTED ORALLY , NOTES: 2 WEEKS MEDICATION LIST REVIEWED AND RECONCILED WITH THE PATIENT PAST MEDICAL HISTORY DIABETES MIGRAINES PAF - INTERMITTENT A-FIB HTN GERD HIGH CHOLESTEROL GUILLAIN BARRE PNEUMONIA ILIEITIS A FIB WITH RVR DIVERTICULITIS BPH ED MULTIPLE GI PROBLEMS CHRON'S ALLERGIES SURGICAL GLUE: RASH, ITCHING - ALLERGY SURGICAL HISTORY BOWEL RESECTION 2013 RIGHT KNEE ARTHROSCOPY, LEFT ALSO DONE YEARS LATER 2013 GASTRIC BYPASS RIGHT INGUINAL HERNIA REPAIR 06/24/18 CHOLECYSTECTOMY 11/2018 EGD 12/2019 EXPLORATORY LAP 12/2019 FAMILY HISTORY FATHER: , DIAGNOSED WITH DIABETES, OTHER MALIGNANT NEOPLASM OF UNSPECIFIED SITE MOTHER: , HYPERTENSION, DIABETES, OTHER SPECIFIED CONDITIONS INFLUENCING HEALTH STATUS SIBLINGS: ALIVE 4 BROTHER(S) , 2 SISTER(S) . 1 SON(S) , 1 DAUGHTER(S) - HEALTHY. 1 SISTER . 1 SISTER HAS ALOT OF MEDICAL ISSUES ALSO. SOCIAL HISTORY GENERAL: TOBACCO USE ARE YOU A:NONSMOKER LATEX QUESTIONNAIRE LATEX ALLERGY : HAVE YOU EVER DEVELOPED ANY TYPE OF REACTION AFTER HANDLING LATEX PRODUCTS SUCH RUBBER GLOVES, CONDOMS, DIAPHRAGMS, BALLOONS, SOCKS, OR UNDERWEAR?NO LATEX ALLERGY : HAVE YOU EVER DEVELOPED ANY TYPE OF REACTION DURING OR AFTER DENTAL APPOINTMENT, VAGINAL/RECTAL EXAMINATION, SURGICAL PROCEDURE, OR ANY OTHER EXPOSURE?NO LATEX RISK : HAVE YOU EVER HAD ANY DIFFICULTY BREATHING OR HIVES AFTER EATING OR HANDLING ANY FRUITS, OR VEGETABLES; SUCH KIWI, BANANAS, STONE FRUITS, OR CHESTNUTSNO LATEX RISK : DO YOU HAVE A PREVIOUS PERSONAL HISTORY OF MORE THAN NINE SURGERIES, SPINA BIFIDA, OR REPEATED CATHERIZATIONS? NO LATEX RISK : ARE YOU FREQUENTLY EXPOSED TO LATEX PRODUCTS IN YOUR OCCUPATION?NO DATE ASKED : 08/10/2020 ALCOHOL SCREENING DID YOU HAVE A DRINK CONTAINING ALCOHOL IN THE PAST YEAR?YES HOW OFTEN DID YOU HAVE SIX OR MORE DRINKS ON ONE OCCASION IN THE PAST YEAR?NEVER (0 POINTS) HOW MANY DRINKS DID YOU HAVE ON A TYPICAL DAY WHEN YOU WERE DRINKING IN THE PAST YEAR?1 OR 2 (0 POINTS) HOW OFTEN DID YOU HAVE A DRINK CONTAINING ALCOHOL IN THE PAST YEAR?MONTHLY OR LESS (1 POINT) POINTS1 INTERPRETATIONNEGATIVE RECREATIONAL DRUG USE DRUG USE?NO CAFFEINE CAFFEINE USE?YES 1-2 SODA/DAY SEXUAL HX HAD SEX IN THE LAST 12 MONTHS (VAGINAL, ORAL, OR ANAL)?NO HAVE YOU EVER HAD AN STD?NO WORSHIP WORSHIP NO BAPTISM BELIEFS THAT WOULD IMPACT HEALTH CARE. 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 EXERCISE: WALKS. MARITAL STATUS: . OTHERS AT HOME: SPOUSE. PAIN CLINIC PFS, CLERGY, PUBLIC HEALTH REFERRALS PFS REFERRAL NEEDED?NO CLERGY REFERRAL NEEDED?NO PUBLIC HEALTH REFERRAL NEEDED?NO WAS THE PROVIDER NOTIFIED OF ANY PERTINENT INFO?YES N/A HAS THE PATIENT BEEN EDUCATED REGARDING HIS/HER PLAN OF CARE?YES HAS THE PATIENT BEEN EDUCATED REGARDING PAIN, THE RISK FOR PAIN, THE IMPORTANCE OF EFFECTIVE PAIN MANAGEMENT, AND THE PAIN ASSESSMENT PROCESS?YES ADVANCE DIRECTIVE ADVANCE DIRECTIVE DISCUSSED WITH PATIENT:YES HCP ON FILE - , AUDREY DAIGLE [phone] HOSPITALIZATION/MAJOR DIAGNOSTIC PROCEDURE SURGERY RELATED GUILLAIN BARRE REQUIRING PLASMAPHERESIS, IVIG, STEROIDS AND INTUBATION [facility] 09/2015 PNEUMONIA, ILEITIS 02/2018 VITAL SIGNS WT 170.8 LBS, HT 70 IN, BMI 24.50 INDEX, BP 130/72 MM HG, HR 82 /MIN, RR 18 /MIN, TEMP 97.6 F, OXYGEN SAT % 98%, SAFE IN ENV? (Y/N) Y, NA INITIALS AW 1355, REVIEWED BY: BRANNON. EXAMINATION GENERAL EXAMINATION: THE PATIENT IS ALERT, ORIENTED TIMES THREE AND COOPERATIVE. HEART SHOWS REGULAR RHYTHM, NO MURMURS AND NO GALLOPS. LUNGS ARE CLEAR TO AUSCULTATION. ASSESSMENTS SPONDYLOSIS WITHOUT MYELOPATHY OR RADICULOPATHY, LUMBAR REGION - M47.816 (PRIMARY) SPONDYLOSIS WITHOUT MYELOPATHY OR RADICULOPATHY, LUMBOSACRAL REGION - M47.817 TREATMENT SPONDYLOSIS WITHOUT MYELOPATHY OR RADICULOPATHY, LUMBAR REGION [facility] FACET BLOCK (PAIN)[id number] PROCEDURES PN LUMBAR FACET BLOCK THERAPEUTIC PRE PROCEDURE DIAGNOSIS LUMBAR SPONDYLOSIS, LUMBOSACRAL SPONDYLOSIS POST PROCEDURE DIAGNOSIS LUMBAR SPONDYLOSIS, LUMBOSACRAL SPONDYLOSIS PROCEDURE BILATERAL L4-L5 AND BILATERAL L5-S1 LUMBAR FACET THERAPEUTIC BLOCK SURGEON DR. BONY ANTOINE SUGAR GRINDER NONE ANESTHESIA LOCAL PRE PROCEDURE NOTE THE PATIENT HAS A HISTORY OF CHRONIC LOW BACK PAIN. I EVALUATED THE PATIENT AND REVIEWED THE CHART. I WENT OVER THE RISKS, ALTERNATIVES, AND BENEFITS ASSOCIATED WITH THIS PROCEDURE. I DISCUSSED THAT THE USE OF STEROIDS MAY CONTRIBUTE TO IMMUNOSUPPRESSION OF THE PATIENT'S BODY AGAINST INFECTIONS SUCH COVID-19. THE PATIENT IS AWARE OF THE POTENTIAL COMPLICATIONS ASSOCIATED WITH THIS VIRUS, INCLUDING, BUT NOT LIMITED TO, . THE PATIENT WOULD LIKE TO PROCEED AND GIVES CONSENT TO PERFORM THE PROCEDURE. THE PATIENT DENIES UNEXPLAINABLE WEIGHT LOSS, FEVER, CHILLS, OR NEW CHANGES IN URINARY OR BOWEL CONTROL. THE PATIENT IS COVID-19 NEGATIVE DESCRIPTION OF PROCEDURE THE PATIENT WAS BROUGHT TO THE PROCEDURE ROOM AND PLACED IN THE PRONE POSITION. THE LUMBOSACRAL AREA WAS CLEANED WITH CHLORAPREP SOLUTION AND DRAPED ASEPTICALLY. THE PROCEDURE WAS DONE UNDER STERILE CONDITIONS. A TIMEOUT WAS PERFORMED WHERE LATERALITY AND THE SITE OF THE PROCEDURE WERE CHECKED AND CONFIRMED WITH EVERYONE IN THE ROOM. UNDER FLUOROSCOPIC GUIDANCE, THE TARGET POINT WAS SELECTED AT THE RIGHT AND LEFT L4-L5 AND RIGHT AND LEFT L5-S1 FACET JOINTS. THERE IS SOME LUMBARIZATION OF THE FIRST SACRAL SEGMENT. TARGET POINT WAS SELECTED AFTER LATERAL ROTATION AND TILT OF THE MAGNIFIER OF THE C-ARM. I CONFIRMED AGAIN WITH EVERYONE IN THE ROOM THE LATERALITY OF THE TARGET. LIDOCAINE 0.5% WAS USED TO NUMB THE SKIN AND THE SUBCUTANEOUS TISSUE BELOW IT. SPINAL NEEDLES, 22-GAUGE, WERE ADVANCED UNDER FLUOROSCOPIC GUIDANCE AND FOLLOWING PATIENT FEEDBACK UNTIL THE TARGETS WERE TOUCHED. THE POSITION OF THE NEEDLES WAS VERIFIED WITH AP AND LATERAL VIEWS. AFTER PROPER POSITION OF THE NEEDLES WAS ACHIEVED, ISOVUE-M DYE 30%, 0.1 ML, WAS INJECTED SHOWING ADEQUATE SPREAD OF THE DYE. KENALOG 20 MG WAS INJECTED AT EACH SITE. THEN, A SOLUTION OF 1.0 ML OF BUPIVACAINE 0.125% OF WAS USED TO FLUSH EACH SITE. THE MEDICATION WAS VERIFIED WITH THE NURSE. THERE WAS NO EVIDENCE OF BLOOD, PARESTHESIA OR CEREBROSPINAL FLUID DURING THE PROCEDURE. THE PATIENT WAS SENT TO THE RECOVERY ROOM. THE PATIENT WAS MOVING THE EXTREMITIES AND DOING WELL. THERE WERE NO COMPLICATIONS DURING THE PROCEDURE. ESTIMATED BLOOD LOSS WAS LESS THAN 5 ML. FLUOROSCOPY TIME WAS 45 SECONDS POST PROCEDURE NOTE THE PATIENT WILL BE SEEN IN A FOLLOW UP IN THE NEXT FEW WEEKS. I AM LOOKING FOR LONG LASTING RELIEF FOR THE PATIENT WITH THIS INTERVENTION. INSTRUCTIONS WERE GIVEN, QUESTIONS WERE ANSWERED, AND THE PATIENT EXPRESSED UNDERSTANDING AND AGREES WITH THE PLAN. I, SELAM VARELA, DOCUMENTED THE ABOVE INFORMATION ACTING A SCRIBE FOR DR. ANTOINE. 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 IT IS NOT A COPY OF THE [employer] PROGRESS NOTE. TERESA
--- NOTE | 2020-08-10 17:11 | ECWPNPC ---
PATIENT NAME: HAI DAIGLE : 1965 GENDER: MALE VISIT DATE: 08/10/2020 DISCHARGE DATE: 08/10/20 1559 VISIT LOCKED DATE TIME: PHYSICIAN: BONY ANTOINE MD RESOURCE: BONY ANTOINE MD REASON FOR APPOINTMENT 1. BILATERAL THERA LUMBAR FACET L4-L5,L5-S1 HISTORY OF PRESENT ILLNESS GENERAL: -. FALL RISK SCREENING: SCREENING :NO FALLS REPORTED IN THE LAST YEAR PAIN SCREENING: PATIENT HAS A COMPLAINT OF ACUTE OR CHRONIC PAIN :YES LOCATION OF PAIN:LOW BACK, LEFT HIP, RIGHT HIP, THIGH(S) LEFT THIGH INTENSITY OF PAIN (SCALE OF 1 TO 10):8 WHAT DOES YOUR PAIN FEEL LIKE:CONTINOUS, SHOOTING DURATION:CONTINOUS, CONSTANT, STEADY, ALL DAY PAIN IS INCREASED BY:ACTIVITIES, PROLONGED STANDING PAIN IS DECREASED BY:USE OF PAIN MEDICATIONS, SITTING NURSING NOTE: -. PAIN CENTER INTAKE QUESTIONS: DO YOU HAVE A HISTORY OF MRSA? :NO DO YOU TAKE A BLOOD THINNERS? :NO DO YOU HAVE ANY BLEEDING DISORDERS? :NO ANY NEW NUMBNESS OR WEAKNESS IN YOUR LEGS OR ARMS? :NO ANY PACEMAKER,DEFIBRILLATOR, OR DORSAL COLUMN STIMULATOR? :NO DO YOU HAVE ANY RASHES OR OPEN SORES? :YES RIGHT ARM SCRATCHES ARE YOU ALLERGIC TO IV DYE? :NO ARE YOU DIABETIC? :YES FSBS 101 TODAY ANY NEW PROBLEMS WITH YOUR MEDICATIONS? :NO HAVE YOU RECEIVED A VACCINE IN THE PAST 30 DAYS? :NO DO YOU PLAN TO RECEIVE A VACCINE IN THE NEXT 21 DAYS? :NO DO YOU TAKE ANY IMMUNOSUPPRESSIVE MEDICATIONS? :NO ANY HISTORY OF SEIZURES? :NO ANY HISTORY OF CARDIAC ISSUES OR EVENTS? :NO DO YOU HAVE SLEEP APNEA? :NO ANY RECENT HEAD INJURY? :NO DO YOU HAVE ANY NEW INFECTIONS? :NO IS THERE A CHANCE YOU COULD BE ? :NO ARE YOU BREAST FEEDING? :NO WHEN DID YOU LAST EAT? : 08/10/2020 0430 WHEN DID YOU LAST DRINK? : 08/10/2020 0900 WHAT DID YOU LAST DRINK? : WATER NAME OF PERSON DRIVING YOU HOME? : AUDREY DAIGLE () DO YOU HAVE ANY OTHER QUESTIONS OR CONCERNS? : - CURRENT MEDICATIONS TAKING ASPIR-81 81 MG TABLET DELAYED RELEASE 1 TABLET ORALLY EVERY OTHER DAY, NOTES: 08/09/2020 0403 TAKING CITRACAL PLUS 400MG TABLET 2 TABS ORALLY AT BEDTIME, NOTES: 0500 TAKING FLECAINIDE ACETATE 50 MG TABLET 1 TABLET ORALLY EVERY 12 HRS, NOTES: 0500 TAKING VITAMIN D3 MAXIMUM STRENGTH 5000 UNIT CAPSULE 1 CAPSULE ORALLY DAILY, NOTES: 0500 TAKING VITAMIN B-12 500 MCG TABLET 1 TABLET ORALLY ONCE A DAY, NOTES: 0500 TAKING TRULICITY 0.75 MG/0.5ML SOLUTION PEN-INJECTOR SUBCUTANEOUS WEEKLY, NOTES: 08/05/2020 TAKING PRILOSEC 40 MG CAPSULE DELAYED RELEASE 1/2 CAPSULE ORALLY ONCE A DAY, NOTES: 0500 TAKING METFORMIN HCL 1000 MG TABLET 1 TABLET WITH MEALS ORALLY TWICE DAILY, NOTES: 08/09/20201999 TAKING PROBIOTIC 1 CAPSULE 1 CAP ORALLY DAILY, NOTES: 0500 TAKING MAGNESIUM 400 MG CAPSULE 1 CAP ORALLY BID, NOTES: 0500 TAKING BISOPROLOL FUMARATE 5 MG TABLET 1 TABLET ORALLY ONCE A DAY, NOTES: 0500 TAKING LIPITOR 10 MG TABLET 1 TABLET ORALLY ONCE A DAY, NOTES: 0500 TAKING MULTI FOR HIM TABLET 2 TABS ORALLY DAILY, NOTES: 0500 TAKING TAMSULOSIN HCL 0.4 MG CAPSULE 1 CAPSULE ONCE A DAY, NOTES: 0500 TAKING ZOFRAN 8 MG TABLET 1 TABLET ORALLY Q 8 HOURS NEEDED, NOTES: PRN; 0500 TAKING LOSARTAN POTASSIUM 25 MG TABLET 1 TABLET ORALLY ONCE A DAY, NOTES: 0500 TAKING DICYCLOMINE HCL 20 MG TABLET 1 TABLET NEEDED ORALLY QID, NOTES: PRN; NONE RECENT TAKING COLESTIPOL HCL 1 GM TABLET 1 TABLET ORALLY BID, NOTES: 08/09/20201999 TAKING JARDIANCE 25 MG TABLET 1 TABLET ORALLY ONCE A DAY, NOTES: 08/09/2020 0430 TAKING POTASSIUM CHLORIDE 20 MEQ TABLET EXTENDED RELEASE 1 TABLET WITH FOOD ORALLY ONCE A DAY, NOTES: 0500 TAKING COLCRYS 0.6 MG TABLET 1 TABLET PRN ORALLY ONCE A DAY, NOTES: NONE RECENT TAKING CYMBALTA 60 MG CAPSULE DELAYED RELEASE PARTICLES 1 CAPSULE ORALLY BEFORE BEDTIME, NOTES: 0500 TAKING TIZANIDINE HCL 2 MG TABLET 1 TABLET NEEDED ORALLY EVERY 8 HRS, NOTES: PRN; NONE RECENT TAKING GABAPENTIN 300 MG CAPSULE 1 CAPSULE ORALLY BEFORE BEDTIME, NOTES: 08/09/20201999 TAKING SOMA 350 MG TABLET 1 TABLET NEEDED ORALLY FOR SPASMS AND PAIN EVERY 12 HOURS NEEDED MDD2, NOTES: 08/09/20201999 TAKING PERCOCET 5-325 MG TABLET 1 TABLET NEEDED ORALLY EVERY 6 HRS MDD4, NOTES: PRN; 08/09/20201999 TAKING TRAZODONE HCL 100 MG TABLET 1 TABLET AT BEDTIME ORALLY ONCE A DAY, NOTES: 08/09/20201999 NOT-TAKING MELATONIN 5 MG TABLET 1 TABLET AT BEDTIME NEEDED WITH FOOD ORALLY ONCE A DAY, NOTES: PRN NOT-TAKING AMLODIPINE BESYLATE 2.5 MG TABLET 1 TABLET ORALLY ONCE A DAY NOT-TAKING POTASSIUM BICARB & CHLORIDE 20 MEQ PACKET 2 TABS ORALLY TWICE A DAY NOT-TAKING SPIRONOLACTONE 25 MG TABLET 1 TABLET ORALLY ONCE A DAY NOT-TAKING TOPIRAMATE 50 MG TABLET 1 TABLET ORALLY BEFORE BEDTIME NOT-TAKING PERCOCET 5-325 MG TABLET 1 TO 2 TAB ORALLY Q6H PRN MDD 4, NOTES: DUPLICATE NOT-TAKING ENTOCORT EC 3 MG CAPSULE DELAYED RELEASE PARTICLES DIRECTED ORALLY , NOTES: 2 WEEKS MEDICATION LIST REVIEWED AND RECONCILED WITH THE PATIENT PAST MEDICAL HISTORY DIABETES MIGRAINES PAF - INTERMITTENT A-FIB HTN GERD HIGH CHOLESTEROL GUILLAIN BARRE PNEUMONIA ILIEITIS A FIB WITH RVR DIVERTICULITIS BPH ED MULTIPLE GI PROBLEMS CHRON'S ALLERGIES SURGICAL GLUE: RASH, ITCHING - ALLERGY SURGICAL HISTORY BOWEL RESECTION 2013 RIGHT KNEE ARTHROSCOPY, LEFT ALSO DONE YEARS LATER 2013 GASTRIC BYPASS RIGHT INGUINAL HERNIA REPAIR 06/24/18 CHOLECYSTECTOMY 11/2018 EGD 12/2019 EXPLORATORY LAP 12/2019 FAMILY HISTORY FATHER: , DIAGNOSED WITH DIABETES, OTHER MALIGNANT NEOPLASM OF UNSPECIFIED SITE MOTHER: , HYPERTENSION, DIABETES, OTHER SPECIFIED CONDITIONS INFLUENCING HEALTH STATUS SIBLINGS: ALIVE 4 BROTHER(S) , 2 SISTER(S) . 1 SON(S) , 1 DAUGHTER(S) - HEALTHY. 1 SISTER . 1 SISTER HAS ALOT OF MEDICAL ISSUES ALSO. SOCIAL HISTORY GENERAL: TOBACCO USE ARE YOU A:NONSMOKER LATEX QUESTIONNAIRE LATEX ALLERGY : HAVE YOU EVER DEVELOPED ANY TYPE OF REACTION AFTER HANDLING LATEX PRODUCTS SUCH RUBBER GLOVES, CONDOMS, DIAPHRAGMS, BALLOONS, SOCKS, OR UNDERWEAR?NO LATEX ALLERGY : HAVE YOU EVER DEVELOPED ANY TYPE OF REACTION DURING OR AFTER DENTAL APPOINTMENT, VAGINAL/RECTAL EXAMINATION, SURGICAL PROCEDURE, OR ANY OTHER EXPOSURE?NO LATEX RISK : HAVE YOU EVER HAD ANY DIFFICULTY BREATHING OR HIVES AFTER EATING OR HANDLING ANY FRUITS, OR VEGETABLES; SUCH KIWI, BANANAS, STONE FRUITS, OR CHESTNUTSNO LATEX RISK : DO YOU HAVE A PREVIOUS PERSONAL HISTORY OF MORE THAN NINE SURGERIES, SPINA BIFIDA, OR REPEATED CATHERIZATIONS? NO LATEX RISK : ARE YOU FREQUENTLY EXPOSED TO LATEX PRODUCTS IN YOUR OCCUPATION?NO DATE ASKED : 08/10/2020 ALCOHOL SCREENING DID YOU HAVE A DRINK CONTAINING ALCOHOL IN THE PAST YEAR?YES HOW OFTEN DID YOU HAVE SIX OR MORE DRINKS ON ONE OCCASION IN THE PAST YEAR?NEVER (0 POINTS) HOW MANY DRINKS DID YOU HAVE ON A TYPICAL DAY WHEN YOU WERE DRINKING IN THE PAST YEAR?1 OR 2 (0 POINTS) HOW OFTEN DID YOU HAVE A DRINK CONTAINING ALCOHOL IN THE PAST YEAR?MONTHLY OR LESS (1 POINT) POINTS1 INTERPRETATIONNEGATIVE RECREATIONAL DRUG USE DRUG USE?NO CAFFEINE CAFFEINE USE?YES 1-2 SODA/DAY SEXUAL HX HAD SEX IN THE LAST 12 MONTHS (VAGINAL, ORAL, OR ANAL)?NO HAVE YOU EVER HAD AN STD?NO SIKH SIKH NO JAIN BELIEFS THAT WOULD IMPACT HEALTH CARE. 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 EXERCISE: WALKS. MARITAL STATUS: . OTHERS AT HOME: SPOUSE. PAIN CLINIC PFS, CLERGY, PUBLIC HEALTH REFERRALS PFS REFERRAL NEEDED?NO CLERGY REFERRAL NEEDED?NO PUBLIC HEALTH REFERRAL NEEDED?NO WAS THE PROVIDER NOTIFIED OF ANY PERTINENT INFO?YES N/A HAS THE PATIENT BEEN EDUCATED REGARDING HIS/HER PLAN OF CARE?YES HAS THE PATIENT BEEN EDUCATED REGARDING PAIN, THE RISK FOR PAIN, THE IMPORTANCE OF EFFECTIVE PAIN MANAGEMENT, AND THE PAIN ASSESSMENT PROCESS?YES ADVANCE DIRECTIVE ADVANCE DIRECTIVE DISCUSSED WITH PATIENT:YES HCP ON FILE - , AUDREY DAIGLE [phone] HOSPITALIZATION/MAJOR DIAGNOSTIC PROCEDURE SURGERY RELATED GUILLAIN BARRE REQUIRING PLASMAPHERESIS, IVIG, STEROIDS AND INTUBATION [facility] 09/2015 PNEUMONIA, ILEITIS 02/2018 VITAL SIGNS WT 170.8 LBS, HT 70 IN, BMI 24.50 INDEX, BP 130/72 MM HG, HR 82 /MIN, RR 18 /MIN, TEMP 97.6 F, OXYGEN SAT % 98%, SAFE IN ENV? (Y/N) Y, NA INITIALS AW 1355, REVIEWED BY: BRANNON. EXAMINATION GENERAL EXAMINATION: THE PATIENT IS ALERT, ORIENTED TIMES THREE AND COOPERATIVE. HEART SHOWS REGULAR RHYTHM, NO MURMURS AND NO GALLOPS. LUNGS ARE CLEAR TO AUSCULTATION. ASSESSMENTS SPONDYLOSIS WITHOUT MYELOPATHY OR RADICULOPATHY, LUMBAR REGION - M47.816 (PRIMARY) SPONDYLOSIS WITHOUT MYELOPATHY OR RADICULOPATHY, LUMBOSACRAL REGION - M47.817 TREATMENT SPONDYLOSIS WITHOUT MYELOPATHY OR RADICULOPATHY, LUMBAR REGION [facility] FACET BLOCK (PAIN)[id number] PROCEDURES PN LUMBAR FACET BLOCK THERAPEUTIC PRE PROCEDURE DIAGNOSIS LUMBAR SPONDYLOSIS, LUMBOSACRAL SPONDYLOSIS POST PROCEDURE DIAGNOSIS LUMBAR SPONDYLOSIS, LUMBOSACRAL SPONDYLOSIS PROCEDURE BILATERAL L4-L5 AND BILATERAL L5-S1 LUMBAR FACET THERAPEUTIC BLOCK SURGEON DR. BONY ANTOINE CLOUD SECURITY ARCHITECT NONE ANESTHESIA LOCAL PRE PROCEDURE NOTE THE PATIENT HAS A HISTORY OF CHRONIC LOW BACK PAIN. I EVALUATED THE PATIENT AND REVIEWED THE CHART. I WENT OVER THE RISKS, ALTERNATIVES, AND BENEFITS ASSOCIATED WITH THIS PROCEDURE. I DISCUSSED THAT THE USE OF STEROIDS MAY CONTRIBUTE TO IMMUNOSUPPRESSION OF THE PATIENT'S BODY AGAINST INFECTIONS SUCH COVID-19. THE PATIENT IS AWARE OF THE POTENTIAL COMPLICATIONS ASSOCIATED WITH THIS VIRUS, INCLUDING, BUT NOT LIMITED TO, . THE PATIENT WOULD LIKE TO PROCEED AND GIVES CONSENT TO PERFORM THE PROCEDURE. THE PATIENT DENIES UNEXPLAINABLE WEIGHT LOSS, FEVER, CHILLS, OR NEW CHANGES IN URINARY OR BOWEL CONTROL. THE PATIENT IS COVID-19 NEGATIVE DESCRIPTION OF PROCEDURE THE PATIENT WAS BROUGHT TO THE PROCEDURE ROOM AND PLACED IN THE PRONE POSITION. THE LUMBOSACRAL AREA WAS CLEANED WITH CHLORAPREP SOLUTION AND DRAPED ASEPTICALLY. THE PROCEDURE WAS DONE UNDER STERILE CONDITIONS. A TIMEOUT WAS PERFORMED WHERE LATERALITY AND THE SITE OF THE PROCEDURE WERE CHECKED AND CONFIRMED WITH EVERYONE IN THE ROOM. UNDER FLUOROSCOPIC GUIDANCE, THE TARGET POINT WAS SELECTED AT THE RIGHT AND LEFT L4-L5 AND RIGHT AND LEFT L5-S1 FACET JOINTS. THERE IS SOME LUMBARIZATION OF THE FIRST SACRAL SEGMENT. TARGET POINT WAS SELECTED AFTER LATERAL ROTATION AND TILT OF THE MAGNIFIER OF THE C-ARM. I CONFIRMED AGAIN WITH EVERYONE IN THE ROOM THE LATERALITY OF THE TARGET. LIDOCAINE 0.5% WAS USED TO NUMB THE SKIN AND THE SUBCUTANEOUS TISSUE BELOW IT. SPINAL NEEDLES, 22-GAUGE, WERE ADVANCED UNDER FLUOROSCOPIC GUIDANCE AND FOLLOWING PATIENT FEEDBACK UNTIL THE TARGETS WERE TOUCHED. THE POSITION OF THE NEEDLES WAS VERIFIED WITH AP AND LATERAL VIEWS. AFTER PROPER POSITION OF THE NEEDLES WAS ACHIEVED, ISOVUE-M DYE 30%, 0.1 ML, WAS INJECTED SHOWING ADEQUATE SPREAD OF THE DYE. KENALOG 20 MG WAS INJECTED AT EACH SITE. THEN, A SOLUTION OF 1.0 ML OF BUPIVACAINE 0.125% OF WAS USED TO FLUSH EACH SITE. THE MEDICATION WAS VERIFIED WITH THE NURSE. THERE WAS NO EVIDENCE OF BLOOD, PARESTHESIA OR CEREBROSPINAL FLUID DURING THE PROCEDURE. THE PATIENT WAS SENT TO THE RECOVERY ROOM. THE PATIENT WAS MOVING THE EXTREMITIES AND DOING WELL. THERE WERE NO COMPLICATIONS DURING THE PROCEDURE. ESTIMATED BLOOD LOSS WAS LESS THAN 5 ML. FLUOROSCOPY TIME WAS 45 SECONDS POST PROCEDURE NOTE THE PATIENT WILL BE SEEN IN A FOLLOW UP IN THE NEXT FEW WEEKS. I AM LOOKING FOR LONG LASTING RELIEF FOR THE PATIENT WITH THIS INTERVENTION. INSTRUCTIONS WERE GIVEN, QUESTIONS WERE ANSWERED, AND THE PATIENT EXPRESSED UNDERSTANDING AND AGREES WITH THE PLAN. I, SELAM VARELA, DOCUMENTED THE ABOVE INFORMATION ACTING A SCRIBE FOR DR. ANTOINE. I HAVE REVIEWED THE ABOVE DOCUMENT, WRITTEN BY SELAM VARELA, HOSPITALITY ASSOCIATE, AND I VERIFY THAT IT IS ACCURATE PROCEDURE CODES 77202 INJ PARAVERT F JNT L/S 1 LEV, MODIFIERS: 50 [id number] INJ PARAVERT F JNT L/S 2 LEV, MODIFIERS: 50 DISPOSITION & COMMUNICATION FOLLOW UP FOLLOWUP WITH BUS ANALYST (REASON: POST THERAPEUTIC BILATERAL L4-L5, L5-S1) ELECTRONICALLY SIGNED BY BONY ANTOINE MD, MD ON 08/10/2020 AT 04:48 PM EDT DISCLAIMER : THIS IS A VISIT SUMMARY EXTRACTED FROM THE [employer] CHART. IT IS NOT A COPY OF THE [employer] PROGRESS NOTE. TERESA
--- NOTE | 2020-08-16 07:56 | REP ---
C-ARM VIEWS LOWER LUMBAR SPINE HISTORY: Pain. TECHNIQUE: Four C-arm views lower lumbar spine performed during bilateral facet injections performed by Dr. Barrientos. FINDINGS: Two needles are seen along the lower lumbar facet joints bilaterally and a small amount of contrast is injected. FLUROSCOPY TIME: 45 seconds utilized. TRISTIND
== END ==
LOC: M PAIN 14:00
PROVIDERS: ATTEND Anesthesiology
DX: M47.816 Spondylosis without myelopathy or radiculopathy, lumbar region (principal); M47.817 Spondylosis without myelopathy or radiculopathy, lumbosacral region; E11.9 Type 2 diabetes mellitus without complications; G43.909 Migraine, unspecified, not intractable, without status migrainosus; I10 Essential (primary) hypertension; K21.9 Gastro-esophageal reflux disease without esophagitis; Z98.84 Bariatric surgery status; Z91.09 Other allergy status, other than to drugs and biological substances; Z79.82 Long term (current) use of aspirin; Z79.84 Long term (current) use of oral hypoglycemic drugs; Z79.899 Other long term (current) drug therapy
CPT/HCPCS: 64493; 64494; J3301; Q9967

== ENCOUNTER → 2020-08-24 | Outpatient (CLI) | payer OTHER ==
[~2020-08-24] MED LIST changes: -BUPIVACAINE HCL 0.25% 30ML VIAL As Ordered ONE; -ISOVUE-M 300 61% 15ML VIAL As Ordered ONE; -LIDOCAINE 1% SDV 30ML VIAL As Ordered ONE; -TRIAMCINOLONE ACETONIDE SUSP 40 MG/ML VIAL (J3301) As Ordered ONE; -diazePAM 5 MG TAB As Ordered ONE; -oxyCODONE 5MG TAB As Ordered ONE
--- NOTE | 2020-08-29 10:10 | ECWPNPC ---
PATIENT NAME: HAI DAIGLE : 1965 GENDER: MALE VISIT DATE: 08/24/2020 DISCHARGE DATE: 08/24/20 1027 VISIT LOCKED DATE TIME: PHYSICIAN: BRITT LANCASTER RESOURCE: BRITT LANCASTER REASON FOR APPOINTMENT 1. POST THERAPEUTIC BILATERAL L4-L5, L5-S1 HISTORY OF PRESENT ILLNESS DEPRESSION SCREENING: PHQ-2 (2015 EDITION) LITTLE INTEREST OR PLEASURE IN DOING THINGS?NOT AT ALL FEELING DOWN, DEPRESSED, OR HOPELESS?NOT AT ALL TOTAL SCORE0 GENERAL: HERE FOR POST PROCEDURE FOLLOW-UP. OVERALL DOING WELL. HAD BILATERAL LUMBAR L4-5, L5-S1 THERAPEUTIC BLOCK ON 08/10/2020. CONTINUES TO BENEFIT FROM INJECTIONS TODAY. ALSO STATES THAT HIS NECK IS DOING WELL SINCE TRIGGER POINT INJECTIONS A FEW MONTHS AGO. FINDS CURRENT CHRONIC PAIN MEDICATION EFFECTIVE AT REDUCING PAIN AND KEEPING HIM FUNCTIONAL. DENIES ADVERSE SIDE EFFECTS. -. FALL RISK SCREENING: SCREENING :NO FALLS REPORTED IN THE LAST YEAR NONE PAIN SCREENING: PATIENT HAS A COMPLAINT OF ACUTE OR CHRONIC PAIN :YES LOCATION OF PAIN:LOW BACK INTENSITY OF PAIN (SCALE OF 1 TO 10):1 WHAT DOES YOUR PAIN FEEL LIKE:ACHING DURATION:STEADY PAIN IS INCREASED BY:ACTIVITIES PAIN IS DECREASED BY:USE OF PAIN MEDICATIONS INJECTIONS HELP ALOT NURSING NOTE: -. PAIN CENTER INTAKE QUESTIONS: DO YOU HAVE A HISTORY OF MRSA? :NO DO YOU TAKE A BLOOD THINNERS? :NO DO YOU HAVE ANY BLEEDING DISORDERS? :NO ANY NEW NUMBNESS OR WEAKNESS IN YOUR LEGS OR ARMS? :NO ANY PACEMAKER,DEFIBRILLATOR, OR DORSAL COLUMN STIMULATOR? :NO DO YOU HAVE ANY RASHES OR OPEN SORES? :NO ARE YOU ALLERGIC TO IV DYE? :NO ARE YOU DIABETIC? :YES ANY NEW PROBLEMS WITH YOUR MEDICATIONS? :NO HAVE YOU RECEIVED A VACCINE IN THE PAST 30 DAYS? :NO DO YOU PLAN TO RECEIVE A VACCINE IN THE NEXT 21 DAYS? :NO DO YOU NEED ANY PRESCRIPTION? :NO DO YOU TAKE ANY IMMUNOSUPPRESSIVE MEDICATIONS? :NO IS THERE A CHANCE YOU COULD BE ? :NO ARE YOU BREAST FEEDING? :NO CURRENT MEDICATIONS TAKING ASPIR-81 81 MG TABLET DELAYED RELEASE 1 TABLET ORALLY EVERY OTHER DAY, NOTES: 08/09/2020 0403 TAKING CITRACAL PLUS 400MG TABLET 2 TABS ORALLY AT BEDTIME, NOTES: 0500 TAKING FLECAINIDE ACETATE 50 MG TABLET 1 TABLET ORALLY EVERY 12 HRS, NOTES: 0500 TAKING VITAMIN D3 MAXIMUM STRENGTH 5000 UNIT CAPSULE 1 CAPSULE ORALLY DAILY, NOTES: 0500 TAKING VITAMIN B-12 500 MCG TABLET 1 TABLET ORALLY ONCE A DAY, NOTES: 0500 TAKING TRULICITY 0.75 MG/0.5ML SOLUTION PEN-INJECTOR SUBCUTANEOUS WEEKLY, NOTES: 08/05/2020 TAKING PRILOSEC 40 MG CAPSULE DELAYED RELEASE 1/2 CAPSULE ORALLY ONCE A DAY, NOTES: 0500 TAKING METFORMIN HCL 1000 MG TABLET 1 TABLET WITH MEALS ORALLY TWICE DAILY, NOTES: 08/09/20201999 TAKING PROBIOTIC 1 CAPSULE 1 CAP ORALLY DAILY, NOTES: 0500 TAKING MAGNESIUM 400 MG CAPSULE 1 CAP ORALLY BID, NOTES: 0500 TAKING BISOPROLOL FUMARATE 5 MG TABLET 1 TABLET ORALLY ONCE A DAY, NOTES: 0500 TAKING LIPITOR 10 MG TABLET 1 TABLET ORALLY ONCE A DAY, NOTES: 0500 TAKING MULTI FOR HIM TABLET 2 TABS ORALLY DAILY, NOTES: 0500 TAKING TAMSULOSIN HCL 0.4 MG CAPSULE 1 CAPSULE ONCE A DAY, NOTES: 0500 TAKING ZOFRAN 8 MG TABLET 1 TABLET ORALLY Q 8 HOURS NEEDED, NOTES: PRN; 0500 TAKING LOSARTAN POTASSIUM 25 MG TABLET 1 TABLET ORALLY ONCE A DAY, NOTES: 0500 TAKING DICYCLOMINE HCL 20 MG TABLET 1 TABLET NEEDED ORALLY QID, NOTES: PRN; NONE RECENT TAKING JARDIANCE 25 MG TABLET 1 TABLET ORALLY ONCE A DAY, NOTES: 08/09/2020 0430 TAKING POTASSIUM CHLORIDE 20 MEQ TABLET EXTENDED RELEASE 1 TABLET WITH FOOD ORALLY ONCE A DAY, NOTES: 0500 TAKING COLCRYS 0.6 MG TABLET 1 TABLET PRN ORALLY ONCE A DAY, NOTES: NONE RECENT TAKING CYMBALTA 60 MG CAPSULE DELAYED RELEASE PARTICLES 1 CAPSULE ORALLY BEFORE BEDTIME, NOTES: 0500 TAKING TIZANIDINE HCL 2 MG TABLET 1 TABLET NEEDED ORALLY EVERY 8 HRS, NOTES: PRN; NONE RECENT TAKING GABAPENTIN 300 MG CAPSULE 1 CAPSULE ORALLY BEFORE BEDTIME, NOTES: 08/09/20201999 TAKING SOMA 350 MG TABLET 1 TABLET NEEDED ORALLY FOR SPASMS AND PAIN EVERY 12 HOURS NEEDED MDD2, NOTES: 08/09/20201999 TAKING TRAZODONE HCL 100 MG TABLET 1 TABLET AT BEDTIME ORALLY ONCE A DAY, NOTES: 08/09/20201999 TAKING PERCOCET 5-325 MG TABLET 1 TABLET NEEDED ORALLY EVERY 6 HRS MDD4, NOTES: PRN; 08/09/20201999 TAKING PREDNISONE 20 MG TABLET 1 TABLET ORALLY ONCE A DAY, NOTES: 08/19/2020 NOT-TAKING COLESTIPOL HCL 1 GM TABLET 1 TABLET ORALLY BID, NOTES: 08/09/20201999 NOT-TAKING MELATONIN 5 MG TABLET 1 TABLET AT BEDTIME NEEDED WITH FOOD ORALLY ONCE A DAY, NOTES: PRN NOT-TAKING AMLODIPINE BESYLATE 2.5 MG TABLET 1 TABLET ORALLY ONCE A DAY NOT-TAKING POTASSIUM BICARB & CHLORIDE 20 MEQ PACKET 2 TABS ORALLY TWICE A DAY NOT-TAKING SPIRONOLACTONE 25 MG TABLET 1 TABLET ORALLY ONCE A DAY NOT-TAKING TOPIRAMATE 50 MG TABLET 1 TABLET ORALLY BEFORE BEDTIME NOT-TAKING PERCOCET 5-325 MG TABLET 1 TO 2 TAB ORALLY Q6H PRN MDD 4, NOTES: DUPLICATE NOT-TAKING ENTOCORT EC 3 MG CAPSULE DELAYED RELEASE PARTICLES DIRECTED ORALLY , NOTES: 2 WEEKS MEDICATION LIST REVIEWED AND RECONCILED WITH THE PATIENT PAST MEDICAL HISTORY DIABETES MIGRAINES PAF - INTERMITTENT A-FIB HTN GERD HIGH CHOLESTEROL GUILLAIN BARRE PNEUMONIA ILIEITIS A FIB WITH RVR DIVERTICULITIS BPH ED MULTIPLE GI PROBLEMS CHRON'S ALLERGIES SURGICAL GLUE: RASH, ITCHING - ALLERGY SURGICAL HISTORY BOWEL RESECTION 2013 RIGHT KNEE ARTHROSCOPY, LEFT ALSO DONE YEARS LATER 2013 GASTRIC BYPASS RIGHT INGUINAL HERNIA REPAIR 06/24/18 CHOLECYSTECTOMY 11/2018 EGD 12/2019 EXPLORATORY LAP 12/2019 FAMILY HISTORY FATHER: , DIAGNOSED WITH DIABETES, OTHER MALIGNANT NEOPLASM OF UNSPECIFIED SITE MOTHER: , HYPERTENSION, DIABETES, OTHER SPECIFIED CONDITIONS INFLUENCING HEALTH STATUS SIBLINGS: ALIVE 4 BROTHER(S) , 2 SISTER(S) . 1 SON(S) , 1 DAUGHTER(S) - HEALTHY. 1 SISTER . 1 SISTER HAS ALOT OF MEDICAL ISSUES ALSO. SOCIAL HISTORY GENERAL: TOBACCO USE ARE YOU A:NONSMOKER LATEX QUESTIONNAIRE LATEX ALLERGY : HAVE YOU EVER DEVELOPED ANY TYPE OF REACTION AFTER HANDLING LATEX PRODUCTS SUCH RUBBER GLOVES, CONDOMS, DIAPHRAGMS, BALLOONS, SOCKS, OR UNDERWEAR?NO LATEX ALLERGY : HAVE YOU EVER DEVELOPED ANY TYPE OF REACTION DURING OR AFTER DENTAL APPOINTMENT, VAGINAL/RECTAL EXAMINATION, SURGICAL PROCEDURE, OR ANY OTHER EXPOSURE?NO LATEX RISK : HAVE YOU EVER HAD ANY DIFFICULTY BREATHING OR HIVES AFTER EATING OR HANDLING ANY FRUITS, OR VEGETABLES; SUCH KIWI, BANANAS, STONE FRUITS, OR CHESTNUTSNO LATEX RISK : DO YOU HAVE A PREVIOUS PERSONAL HISTORY OF MORE THAN NINE SURGERIES, SPINA BIFIDA, OR REPEATED CATHERIZATIONS? NO LATEX RISK : ARE YOU FREQUENTLY EXPOSED TO LATEX PRODUCTS IN YOUR OCCUPATION?NO DATE ASKED : 08/24/2020 ALCOHOL SCREENING DID YOU HAVE A DRINK CONTAINING ALCOHOL IN THE PAST YEAR?YES HOW OFTEN DID YOU HAVE SIX OR MORE DRINKS ON ONE OCCASION IN THE PAST YEAR?NEVER (0 POINTS) HOW MANY DRINKS DID YOU HAVE ON A TYPICAL DAY WHEN YOU WERE DRINKING IN THE PAST YEAR?1 OR 2 (0 POINTS) HOW OFTEN DID YOU HAVE A DRINK CONTAINING ALCOHOL IN THE PAST YEAR?MONTHLY OR LESS (1 POINT) POINTS1 INTERPRETATIONNEGATIVE RECREATIONAL DRUG USE DRUG USE?NO CAFFEINE CAFFEINE USE?YES 1-2 SODA/DAY SEXUAL HX HAD SEX IN THE LAST 12 MONTHS (VAGINAL, ORAL, OR ANAL)?NO HAVE YOU EVER HAD AN STD?NO HOAHAOISM HOAHAOISM NO SPIRITISM BELIEFS THAT WOULD IMPACT HEALTH CARE. 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 EXERCISE: WALKS. MARITAL STATUS: . OTHERS AT HOME: SPOUSE. PAIN CLINIC PFS, CLERGY, PUBLIC HEALTH REFERRALS PFS REFERRAL NEEDED?NO CLERGY REFERRAL NEEDED?NO PUBLIC HEALTH REFERRAL NEEDED?NO WAS THE PROVIDER NOTIFIED OF ANY PERTINENT INFO?YES N/A HAS THE PATIENT BEEN EDUCATED REGARDING HIS/HER PLAN OF CARE?YES HAS THE PATIENT BEEN EDUCATED REGARDING PAIN, THE RISK FOR PAIN, THE IMPORTANCE OF EFFECTIVE PAIN MANAGEMENT, AND THE PAIN ASSESSMENT PROCESS?YES ADVANCE DIRECTIVE ADVANCE DIRECTIVE DISCUSSED WITH PATIENT:YES HCP ON FILE - , AUDREY DAIGLE [phone] HOSPITALIZATION/MAJOR DIAGNOSTIC PROCEDURE SURGERY RELATED GUILLAIN BARRE REQUIRING PLASMAPHERESIS, IVIG, STEROIDS AND INTUBATION [facility] 09/2015 PNEUMONIA, ILEITIS 02/2018 REVIEW OF SYSTEMS CONSTITUTIONAL: ANY RECENT FEVER NO . CHILLS NO . WEIGHT CHANGE OF UNKNOWN REASONS YES . GASTROENTEROLOGY: NEW UNEXPLAINABLE CHANGES IN BOWEL CONTROL NO . CONSTIPATION NO . GENITOURINARY: ANY NEW CHANGE IN BLADDER CONTROL? NO . NEUROLOGY: NEW ONSET DIZZINESS OR NEUROLOGICAL CHANGES NOT MENTIONED NO . NEW NUMBNESS OR PAIN PATTERNS NOT MENTIONED AND PERTINENT TO TODAY'S VISIT NO . CARDIOLOGY: NEW CHEST PRESSURE NO . NEW CHEST PAIN NO . RESPIRATORY: UNEXPLAINABLE COUGH NO . NEW SHORTNESS OF BREATH NO . 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 THEY ARE TRYING TO FIND BIOLOGIC TO HELP WITH THIS. HAS HISTORY OF ADVERSE REACTIONS TO BIOLOGICS TRIED IN THE PAST. VITAL SIGNS WT 172.2 LBS, HT 70 IN, BMI 24.71 INDEX, BP 136/71 MM HG, HR 80 /MIN, RR 18 /MIN, TEMP 97.8 F, OXYGEN SAT % 99%, SAFE IN ENV? (Y/N) YES, NA INITIALS NC 09:59, REVIEWED BY: BRANNON. EXAMINATION GENERAL EXAMINATION: GENERALAWAKE,ALERT ,PLEASANT . PSYCHAFFECT NORMAL . LUNGS:LUNG VALLADARES ARE CLEAR TO AUSCULTATION BILATERALLY. GOOD MOVEMENT OF AIR . HEART:S1, S2 IN A REGULAR RATE AND RHYTHM. NO SIGNIFICANT MURMURS, RUBS OR GALLOPS NOTED . ASSESSMENTS SPONDYLOSIS WITHOUT MYELOPATHY OR RADICULOPATHY, LUMBAR REGION - M47.816 (PRIMARY) MYALGIA, OTHER SITE - M79.18 TREATMENT SPONDYLOSIS WITHOUT MYELOPATHY OR RADICULOPATHY, LUMBAR REGION CONTINUE TIZANIDINE HCL TABLET, 2 MG, 1 TABLET NEEDED, ORALLY, EVERY 8 HRS, NOTES: PRN; NONE RECENT CONTINUE CYMBALTA CAPSULE DELAYED RELEASE PARTICLES, 60 MG, 1 CAPSULE, ORALLY, BEFORE BEDTIME, NOTES: 0500 CONTINUE SOMA TABLET, 350 MG, 1 TABLET NEEDED, ORALLY FOR SPASMS AND PAIN, EVERY 12 HOURS NEEDED MDD2, NOTES: 08/09/20201999 CONTINUE PERCOCET TABLET, 5-325 MG, 1 TABLET NEEDED, ORALLY, EVERY 6 HRS MDD4, NOTES: PRN; 08/09/20201999 CONTINUE TRAZODONE HCL TABLET, 100 MG, 1 TABLET AT BEDTIME, ORALLY, ONCE A DAY, NOTES: 08/09/20201999 NOTES: ISTOP REGISTRY REVIEWED AND DEMONSTRATES COMPLLIANCE. BRINGS IN MEDICATIONS WHICH IS APPROPRIATE FOR WHAT WAS DISPENSED. RECENT URINE TOXICOLOGY REVIEWED. NO UNAUTHORIZED MEDICATIONS. NO ILLICIT SUBSTANCES AND PRESCRIBED MEDICATIONS WERE PRESENT. , RISKS OF NARCOTIC/OPIOD MEDICATIONS INCLUDES BUT IS NOT LIMITED TO RISK OF DEPENDANCE/DEVELOPMENT OF ADDICTION, MOOD DISTURBANCE AND DEPRESSION, OSTEOPOROSIS, HORMONAL AND LABIDAL CHANGES, RESPIRATORY DEPRESSION AND . PATIENT IS ADVISED NOT TO DRIVE OR DRINK ALCOHOL WHILE ON THESE MEDICATIONS. PROCEDURE CODES FA211 ESTABILISHED PATIENT MERGED WITH [facility] CHARGE DISPOSITION & COMMUNICATION FOLLOW UP 3 MONTHS (REASON: CARLOS/LBP/MED MGMNT) ELECTRONICALLY SIGNED BY MARTÍN GOLDBERG ON 08/29/2020 AT 09:35 AM EDT DISCLAIMER : THIS IS A VISIT SUMMARY EXTRACTED FROM THE ASSURED INFORMATION [email or web address] CHART. IT IS NOT A COPY OF THE ASSURED INFORMATION [employer] PROGRESS NOTE. TERESA
== END ==
LOC: M PAIN 09:45
PROVIDERS: ATTEND Nurse Practitioner Family
DX: M47.816 Spondylosis without myelopathy or radiculopathy, lumbar region (principal); M79.18 Myalgia, other site; E11.9 Type 2 diabetes mellitus without complications; G43.909 Migraine, unspecified, not intractable, without status migrainosus; I10 Essential (primary) hypertension; K21.9 Gastro-esophageal reflux disease without esophagitis; Z98.84 Bariatric surgery status; Z91.09 Other allergy status, other than to drugs and biological substances; Z79.82 Long term (current) use of aspirin; Z79.84 Long term (current) use of oral hypoglycemic drugs; Z79.899 Other long term (current) drug therapy

== ENCOUNTER → 2020-09-20 | Outpatient (CLI) | payer OTHER ==
[2020-09-20 08:46] LABS: HEMATOCRIT 41.8 % (42.0-52.0); HEMOGLOBIN 13.8 g/dl (13.5-17.5); MEAN CORPUSCULAR HEMOGLOBIN 29.6 pg (27.0-33.0); MEAN CORPUSCULAR VOLUME 89.7 fl (80.0-96.0); PLATELET COUNT, AUTOMATED 177 10^3/uL (150-450); RED BLOOD COUNT 4.66 10^6/uL (4.30-6.10); WHITE BLOOD COUNT 5.1 10^3/uL (4.0-10.0)
[2020-09-20 09:47] LABS: ALBUMIN 3.3 GM/DL (3.2-5.2); ALT/SGPT 29 U/L (12-78); BILIRUBIN,TOTAL 0.6 MG/DL (0.2-1.0); BLOOD UREA NITROGEN 16 MG/DL (7-18); CALCIUM LEVEL 8.5 MG/DL (8.5-10.1); CARBON DIOXIDE LEVEL 31 MEQ/L (21-32); CHLORIDE LEVEL 105 MEQ/L (98-107); CREATININE FOR GFR 0.77 MG/DL (0.70-1.30); GLOMERULAR FILTRATION RATE > 60.0 (>56); GLUCOSE, FASTING 170 MG/DL (70-100); POTASSIUM SERUM 3.7 MEQ/L (3.5-5.1); SODIUM LEVEL 141 MEQ/L (136-145); TOTAL PROTEIN 5.4 GM/DL (6.4-8.2)
[2020-09-20 09:56] LABS: TOTAL 25(OH) VITAMIN D 52.5 NG/ML (30.0-100.0); VITAMIN B12 LEVEL 860 PG/ML (247-911)
== END ==
LOC: M LAB 08:08
PROVIDERS: ATTEND Internal Medicine Gastroenterology
DX: R19.7 Diarrhea, unspecified (principal); K50.00 Crohn's disease of small intestine without complications; R10.31 Right lower quadrant pain; E55.9 Vitamin D deficiency, unspecified

== ENCOUNTER → 2020-09-20 | Outpatient (CLI) | payer OTHER ==
[2020-09-20 08:46] LABS: HEMOGLOBIN 13.8 g/dl (13.5-17.5); MEAN CORPUSCULAR HEMOGLOBIN 29.4 pg (27.0-33.0); MEAN CORPUSCULAR HGB CONC 32.9 g/dl (32.0-36.5); MEAN CORPUSCULAR VOLUME 89.6 fl (80.0-96.0); PLATELET COUNT, AUTOMATED 176 10^3/uL (150-450); RED BLOOD COUNT 4.69 10^6/uL (4.30-6.10); WHITE BLOOD COUNT 4.9 10^3/uL (4.0-10.0)
[2020-09-20 09:50] LABS: ALBUMIN 3.2 GM/DL (3.2-5.2); ALT/SGPT 27 U/L (12-78); BILIRUBIN,TOTAL 0.6 MG/DL (0.2-1.0); BLOOD UREA NITROGEN 16 MG/DL (7-18); CALCIUM LEVEL 8.5 MG/DL (8.5-10.1); CARBON DIOXIDE LEVEL 31 MEQ/L (21-32); CHLORIDE LEVEL 106 MEQ/L (98-107); CHOLESTEROL LEVEL 146 MG/DL (<200); CHOLESTEROL RISK RATIO 2.474 (<5); CREATININE FOR GFR 0.76 MG/DL (0.70-1.30); GLOMERULAR FILTRATION RATE > 60.0 (>56); GLUCOSE, FASTING 169 MG/DL (70-100); HDL CHOLESTEROL 59 MG/DL (>40); LDL CHOLESTEROL 67 MG/DL (<100); NON-HDL-C 87 MG/DL; NT-PRO BNP 87 PG/ML (<125); POTASSIUM SERUM 3.7 MEQ/L (3.5-5.1); SODIUM LEVEL 142 MEQ/L (136-145); TOTAL PROTEIN 5.3 GM/DL (6.4-8.2); TRIGLYCERIDES LEVEL 101 MG/DL (<150)
== END ==
LOC: M LAB 08:05
PROVIDERS: ATTEND Nurse Practitioner Family
DX: I48.0 Paroxysmal atrial fibrillation (principal); E78.5 Hyperlipidemia, unspecified

== ENCOUNTER 2020-10-11 10:52 | Emergency (ER) | payer OTHER ==
[~2020-10-11] VITALS: Ht 177.8 cm; Wt 78.7 kg
[~2020-10-11 10:52] MED LIST changes: +CYAN500T14 PO; -CYAN500T8 PO
[2020-10-11] MEDS ORDERED: PRED20TA PO (11:04)
--- NOTE | 2020-10-11 11:27 | REP ---
INDICATION: CHEST PAIN. COMPARISON: Comparison chest x-ray June 14, 2020.. TECHNIQUE: Portable sitting AP radiograph. FINDINGS: Monitoring electrodes are seen. The lungs are well inflated and clear. The pleural angles are sharp. Heart size is normal. Pulmonary vasculature is not increased. The thoracic aorta is slightly tortuous. No significant bony abnormality is seen. IMPRESSION: No active disease. <Electronically signed by Alfredo Stanley > 10/11/20 1129
[2020-10-11 11:49] LABS: BASO % 0.5 % (0.0-1.0); EOS # 0.1 10^3/uL (0.0-0.5); EOS % 2.4 % (0.0-3.0); HEMATOCRIT 40.8 % (42.0-52.0); LYMPH # 1.3 10^3/uL (1.5-5.0); LYMPH % 22.3 % (24.0-44.0); MEAN CORPUSCULAR HEMOGLOBIN 29.1 pg (27.0-33.0); MEAN CORPUSCULAR HGB CONC 31.9 g/dl (32.0-36.5); MEAN CORPUSCULAR VOLUME 91.5 fl (80.0-96.0); MONO # 0.5 10^3/uL (0.0-0.8); MONO % 7.7 % (0.0-5.0); NEUTROPHILS # 3.9 10^3/uL (1.5-8.5); NEUTROPHILS % 66.6 % (36.0-66.0); PLATELET COUNT, AUTOMATED 200 10^3/uL (150-450); RED BLOOD COUNT 4.46 10^6/uL (4.30-6.10); WHITE BLOOD COUNT 5.8 10^3/uL (4.0-10.0)
[2020-10-11 12:07] LABS: INR 0.92; PROTHROMBIN TIME 12.5 SECONDS (12.5-14.3)
[2020-10-11 12:22] LABS: ALT/SGPT 23 U/L (12-78); BILIRUBIN,DIRECT 0.2 MG/DL (0.0-0.2); BILIRUBIN,TOTAL 0.3 MG/DL (0.2-1.0); BLOOD UREA NITROGEN 14 MG/DL (7-18); CALCIUM LEVEL 8.7 MG/DL (8.5-10.1); CARBON DIOXIDE LEVEL 29 MEQ/L (21-32); CHLORIDE LEVEL 108 MEQ/L (98-107); CK-MB VALUE MASS 1.6 NG/ML (<3.6); CPK CREATINE PHOSPHOKINASE 31 U/L (39-308); CREATININE FOR GFR 0.71 MG/DL (0.70-1.30); GLOMERULAR FILTRATION RATE > 60.0 (>56); GLUCOSE, FASTING 196 MG/DL (70-100); LIPASE 129 U/L (73-393); MB/CK RELATIVE INDEX 5.16 (< OR =4); POTASSIUM SERUM 3.6 MEQ/L (3.5-5.1); SODIUM LEVEL 140 MEQ/L (136-145); TOTAL PROTEIN 5.2 GM/DL (6.4-8.2); TROPONIN I < 0.02 NG/ML (< 0.10)
[2020-10-11] MEDS ORDERED: NS 1,000 ML IV ONE (12:30)
[2020-10-11] MEDS ORDERED: ONDANSETRON 4MG/2ML VIAL IV ONE (12:30)
[2020-10-11] MEDS ORDERED: ISOVUE-370 76% 100ML VIAL As Ordered ONE (12:34)
[2020-10-11] MEDS: HYDROMORPHONE HCL 0.5 MG/ 0.5 ML SYRINGE (J1170 PER 1) IV PRN ×2 (12:57→15:29)
--- NOTE | 2020-10-11 13:08 | REP ---
INDICATION: chest pain / LUQ abdominal pain/ crohns COMPARISON: None. TECHNIQUE: Axial contrast enhanced images from the thoracic inlet to the upper abdomen using pulmonary embolus technique with multiplanar re-formations. 75 ml Isovue 370 intravenous contrast material administered without complication. This CT examination was performed using the following dose reduction techniques: Automated exposure control, adjustment of mA and/or kv according to the patient's size, and use of iterative reconstruction technique. FINDINGS: Satisfactory enhancement of the pulmonary vasculature is achieved and no filling defects are identified to suggest pulmonary embolus. Further evaluation of the mediastinum demonstrates normal thoracic aorta without aneurysm or dissection. Heart is upper limits of normal and demonstrates atherosclerotic changes to the coronary arteries. No pericardial effusion. The bilateral lung patel are well aerated and clear without consolidation pleural effusion or pneumothorax. Tracheobronchial tree is patent. No nodule or mass lesion is identified. No adenopathy noted. Surrounding musculoskeletal structures intact IMPRESSION: No evidence for pulmonary embolus. Normal thoracic aorta without aneurysm or dissection. No acute mediastinal or pleural parenchymal process. <Electronically signed by Giovanni Key > 10/11/20 0395
--- NOTE | 2020-10-11 13:12 | REP ---
INDICATION: chest pain / LUQ abdominal pain/ crohns. COMPARISON: None TECHNIQUE: Axial contrast-enhanced images from the lung bases to the pubic symphysis using 100 cc Isovue 370 intravenous contrast material. Coronal and sagittal reformations obtained. This CT examination was performed using the following dose reduction techniques: Automated exposure control, adjustment of mA and/or kv according to the patient's size, and the use of iterative reconstruction technique. FINDINGS: Liver, spleen, pancreas, bilateral adrenal glands and kidneys are normal. Evidence for prior cholecystectomy noted. The enteric system includes prior gastric bypass surgery. There is no evidence for bowel obstruction. A mild enterocolitis with scattered small bowel wall thickening cannot be excluded and differential diagnosis would include a mild Crohn's flare up. No free air. No significant ascites. No drainable collection or abscess. Pelvis demonstrates normal bladder and age-appropriate prostate/seminal vesicles. A minimal amount of free fluid is noted in the pelvis which is nonspecific although again possibly related to mild enterocolitis or Crohn's flare up. No ascites. No free air. No intraperitoneal or retroperitoneal adenopathy. Abdominal aorta and vasculature appear normal. Musculoskeletal structures are intact and without acute osseous abnormality. IMPRESSION: 1. Mild scattered elements of small bowel wall thickening are nonspecific and may represent a mild enteritis as well as mild Crohn's flare up. No associated bowel obstruction or perforation. 2. Otherwise essentially normal CT of the abdomen and pelvis. <Electronically signed by Giovanni Key > 10/11/20 1499
[2020-10-11] MEDS ORDERED: GI COCKTAIL 50ML BTL(HYOSCYAMINE/MAALOX/LIDOCAINE VISCOUS)(1:3:1) PO ONE (16:15)
[2020-10-11 16:24] LABS: CK-MB VALUE MASS 1.1 NG/ML (<3.6); CPK CREATINE PHOSPHOKINASE 28 U/L (39-308); MB/CK RELATIVE INDEX 3.93 (< OR =4); TROPONIN I < 0.02 NG/ML (< 0.10)
[2020-10-11] MEDS ORDERED: NORC1TAB7 PO (16:53)
[2020-10-11] MEDS ORDERED: SUCR1TA PO (16:53)
[2020-10-11 17:10] VITALS: BP 145/72
--- NOTE | 2020-10-13 07:48 | ECGEPIP ---
[facility] - ED Test Date: 2020-10-11 Pat Name: HAI DAIGLE Department: Room: - Gender: Male Staff Technologist: JRod : 1965 Requested By: Jarrod Aguilera Order Number: [id number] Reading MD: Franchesca Garrido Measurements Intervals [place] Rate: 67 P: 13 WY: 129 QRS: -16 QRSD: 95 T: 22 QT: 402 QTc: 426 Interpretive Statements SINUS RHYTHM INFERIOR MYOCARDIAL INFARCTION, PROBABLY OLD SIMILAR 12/10/18 Electronically Signed on 10-13-2020 7:48:17 EST by Franchesca Garrido
--- NOTE | 2020-10-13 07:57 | ECGEPIP ---
[facility] - ED Test Date: 2020-10-11 Pat Name: HAI DAIGLE Department: Room: - Gender: Male Bolt Sorter: JRod : 1965 Requested By: LARA Grace Order Number: [id number] Reading MD: Franchesca Garrido Measurements Intervals [place] Rate: 65 P: 29 HI: 146 QRS: -9 QRSD: 97 T: 14 QT: 392 QTc: 408 Interpretive Statements SINUS RHYTHM INFERIOR MYOCARDIAL INFARCTION, PROBABLY OLD SIMILAR 10/11/20 Electronically Signed on 10-13-2020 7:57:06 EST by Franchesca Garrido
--- NOTE | 2020-10-13 11:08 | ED PDOC ---
Post-Departure Follow-Up ct abd/p faxed to dr [email or web address] for fu Arnold Morel MD Oct 13, 2020 11:08
== END 2020-10-11 17:13 | disposition home or self-care (01) ==
LOC: M ED 10:52
DX: K29.70 Gastritis, unspecified, without bleeding (principal); E11.9 Type 2 diabetes mellitus without complications; I10 Essential (primary) hypertension; E78.5 Hyperlipidemia, unspecified; I48.91 Unspecified atrial fibrillation; G61.0 Guillain-Barre syndrome; G47.33 Obstructive sleep apnea (adult) (pediatric); G40.909 Epilepsy, unspecified, not intractable, without status epilepticus; K21.9 Gastro-esophageal reflux disease without esophagitis; Z98.84 Bariatric surgery status; Z79.899 Other long term (current) drug therapy; Z79.84 Long term (current) use of oral hypoglycemic drugs; Z79.82 Long term (current) use of aspirin
CPT/HCPCS: 71045; 71275; 74177; 80048; 80076; 81001; 82550; 82553; 83690; 84484; 85025; 85610; 93005; 93041; 94760; 96361; 96374; 96375; 96376; 99285; J1170; J2405; Q9967

== ENCOUNTER → 2020-11-15 | Outpatient (CLI) | payer OTHER ==
--- NOTE | 2020-11-16 23:13 | ECWPNPC ---
PATIENT NAME: HAI DAIGLE : 1965 GENDER: MALE VISIT DATE: 11/15/2020 DISCHARGE DATE: 11/15/20 1125 VISIT LOCKED DATE TIME: PHYSICIAN: BRITT LANCASTER RESOURCE: BRITT LANCASTER REASON FOR APPOINTMENT 1. NECK [phone] HISTORY OF PRESENT ILLNESS GENERAL: PATIENT IS AGREEABLE TO TELEPHONE VISIT TODAY. THIS IS AN URGENT VISIT DUE TO PATIENT'S INCREASE IN LOW BACK PAIN OVER THE PAST MONTH. DENIES PRECIPITATING EVENT. HAS BENEFITED FROM RADIOFREQUENCY IN THE DISTANT PAST. PAIN IS LOCATED BILATERAL LOW BACK. PAIN IS AGGRAVATED BY POSITION CHANGE AND LIFTING. PAIN IS RELIEVED SOMEWHAT AT REST. REVIEWED MRI OF THE LUMBOSACRAL SPINE AND DISCUSSED TREATMENT PLAN. -. FALL RISK SCREENING: SCREENING :NO FALLS REPORTED IN THE LAST YEAR PAIN SCREENING: PATIENT HAS A COMPLAINT OF ACUTE OR CHRONIC PAIN :YES LOCATION OF PAIN:LOW BACK, THIGH(S) LEFT AND RIGHT INTENSITY OF PAIN (SCALE OF 1 TO 10):7 WHAT DOES YOUR PAIN FEEL LIKE:CONTINOUS, STABBING DURATION:CONTINOUS, CONSTANT, ALL DAY PAIN IS INCREASED BY:ACTIVITIES, OTHERS WALKING, LIFTING PAIN IS DECREASED BY:USE OF PAIN MEDICATIONS, SITTING, OTHERS SITTING NURSING NOTE: -. PAIN CENTER INTAKE QUESTIONS: DO YOU HAVE A HISTORY OF MRSA? :NO DO YOU TAKE A BLOOD THINNERS? :NO DO YOU HAVE ANY BLEEDING DISORDERS? :NO ANY NEW NUMBNESS OR WEAKNESS IN YOUR LEGS OR ARMS? :YES BILATERAL LEG WEAKNESS - HAVING DIFFICULTY STANDING IF BENDING DOWN ANY PACEMAKER,DEFIBRILLATOR, OR DORSAL COLUMN STIMULATOR? :NO DO YOU HAVE ANY RASHES OR OPEN SORES? :NO ARE YOU ALLERGIC TO IV DYE? :NO ARE YOU DIABETIC? :YES ANY NEW PROBLEMS WITH YOUR MEDICATIONS? :NO HAVE YOU RECEIVED A VACCINE IN THE PAST 30 DAYS? :YES IF SO WHAT VACCINE AND WHEN? COVID VACCINE - LAST WEEK DO YOU PLAN TO RECEIVE A VACCINE IN THE NEXT 21 DAYS? :YES IF SO WHAT VACCINE AND WHEN? 12/08/20 - 2ND DOSE OF COVID VACCINE DO YOU NEED ANY PRESCRIPTION? :NO DO YOU TAKE ANY IMMUNOSUPPRESSIVE MEDICATIONS? :YES TAKING PREDNISONE CURRENTLY, WILL BE DONE IN A FEW DAYS. IS THERE A CHANCE YOU COULD BE ? :NO ARE YOU BREAST FEEDING? :NO CURRENT MEDICATIONS TAKING ASPIR-81 81 MG TABLET DELAYED RELEASE 1 TABLET ORALLY EVERY OTHER DAY TAKING CITRACAL PLUS 400MG TABLET 2 TABS ORALLY AT BEDTIME TAKING FLECAINIDE ACETATE 50 MG TABLET 1 TABLET ORALLY EVERY 12 HRS TAKING VITAMIN D3 MAXIMUM STRENGTH 5000 UNIT CAPSULE 1 CAPSULE ORALLY DAILY TAKING VITAMIN B-12 500 MCG TABLET 1 TABLET ORALLY ONCE A DAY TAKING TRULICITY 0.75 MG/0.5ML SOLUTION PEN-INJECTOR SUBCUTANEOUS WEEKLY TAKING PRILOSEC 40 MG CAPSULE DELAYED RELEASE 1/2 CAPSULE ORALLY ONCE A DAY TAKING METFORMIN HCL 1000 MG TABLET 1 TABLET WITH MEALS ORALLY TWICE DAILY TAKING PROBIOTIC 1 CAPSULE 1 CAP ORALLY DAILY TAKING MAGNESIUM 400 MG CAPSULE 1 CAP ORALLY BID TAKING BISOPROLOL FUMARATE 5 MG TABLET 1 TABLET ORALLY ONCE A DAY TAKING LIPITOR 10 MG TABLET 1 TABLET ORALLY ONCE A DAY TAKING MULTI FOR HIM TABLET 2 TABS ORALLY DAILY TAKING TAMSULOSIN HCL 0.4 MG CAPSULE 1 CAPSULE ONCE A DAY TAKING ZOFRAN 8 MG TABLET 1 TABLET ORALLY Q 8 HOURS NEEDED TAKING LOSARTAN POTASSIUM 25 MG TABLET 1 TABLET ORALLY ONCE A DAY TAKING DICYCLOMINE HCL 20 MG TABLET 1 TABLET NEEDED ORALLY QID, NOTES: PRN TAKING JARDIANCE 25 MG TABLET 1 TABLET ORALLY ONCE A DAY TAKING POTASSIUM CHLORIDE 20 MEQ TABLET EXTENDED RELEASE 1 TABLET WITH FOOD ORALLY ONCE A DAY TAKING COLCRYS 0.6 MG TABLET 1 TABLET PRN ORALLY ONCE A DAY TAKING GABAPENTIN 300 MG CAPSULE 1 CAPSULE ORALLY BEFORE BEDTIME TAKING PREDNISONE 5 MG TABLET 1 TABLET ORALLY ONCE A DAY, NOTES: DONE IN A FEW DAYS TAKING TIZANIDINE HCL 2 MG TABLET 1 TABLET NEEDED ORALLY EVERY 8 HRS TAKING CYMBALTA 60 MG CAPSULE DELAYED RELEASE PARTICLES 1 CAPSULE ORALLY BEFORE BEDTIME TAKING TRAZODONE HCL 100 MG TABLET 1/2 TABLET AT BEDTIME ORALLY ONCE A DAY TAKING SOMA 350 MG TABLET 1 TABLET NEEDED ORALLY FOR SPASMS AND PAIN EVERY 12 HOURS NEEDED MDD2 TAKING PERCOCET 5-325 MG TABLET 1 TABLET NEEDED ORALLY EVERY 6 HRS MDD4 NOT-TAKING COLESTIPOL HCL 1 GM TABLET 1 TABLET ORALLY BID, NOTES: 08/09/20201999 NOT-TAKING MELATONIN 5 MG TABLET 1 TABLET AT BEDTIME NEEDED WITH FOOD ORALLY ONCE A DAY, NOTES: PRN NOT-TAKING AMLODIPINE BESYLATE 2.5 MG TABLET 1 TABLET ORALLY ONCE A DAY NOT-TAKING POTASSIUM BICARB & CHLORIDE 20 MEQ PACKET 2 TABS ORALLY TWICE A DAY NOT-TAKING SPIRONOLACTONE 25 MG TABLET 1 TABLET ORALLY ONCE A DAY NOT-TAKING TOPIRAMATE 50 MG TABLET 1 TABLET ORALLY BEFORE BEDTIME NOT-TAKING PERCOCET 5-325 MG TABLET 1 TO 2 TAB ORALLY Q6H PRN MDD 4, NOTES: DUPLICATE NOT-TAKING ENTOCORT EC 3 MG CAPSULE DELAYED RELEASE PARTICLES DIRECTED ORALLY , NOTES: 2 WEEKS MEDICATION LIST REVIEWED AND RECONCILED WITH THE PATIENT PAST MEDICAL HISTORY DIABETES MIGRAINES PAF - INTERMITTENT A-FIB HTN GERD HIGH CHOLESTEROL GUILLAIN BARRE PNEUMONIA ILIEITIS A FIB WITH RVR DIVERTICULITIS BPH ED MULTIPLE GI PROBLEMS CHRON'S ALLERGIES SURGICAL GLUE: RASH, ITCHING - ALLERGY SURGICAL HISTORY BOWEL RESECTION 2013 RIGHT KNEE ARTHROSCOPY, LEFT ALSO DONE YEARS LATER 2013 GASTRIC BYPASS RIGHT INGUINAL HERNIA REPAIR 06/24/18 CHOLECYSTECTOMY 11/2018 EGD 12/2019 EXPLORATORY LAP 12/2019 FAMILY HISTORY FATHER: , DIAGNOSED WITH DIABETES, OTHER MALIGNANT NEOPLASM OF UNSPECIFIED SITE MOTHER: , OTHER SPECIFIED CONDITIONS INFLUENCING HEALTH STATUS, DIABETES, HYPERTENSION SIBLINGS: ALIVE 4 BROTHER(S) , 2 SISTER(S) . 1 SON(S) , 1 DAUGHTER(S) - HEALTHY. 1 SISTER . 1 SISTER HAS ALOT OF MEDICAL ISSUES ALSO. SOCIAL HISTORY GENERAL: TOBACCO USE ARE YOU A:NONSMOKER LATEX QUESTIONNAIRE LATEX ALLERGY : HAVE YOU EVER DEVELOPED ANY TYPE OF REACTION AFTER HANDLING LATEX PRODUCTS SUCH RUBBER GLOVES, CONDOMS, DIAPHRAGMS, BALLOONS, SOCKS, OR UNDERWEAR?NO LATEX ALLERGY : HAVE YOU EVER DEVELOPED ANY TYPE OF REACTION DURING OR AFTER DENTAL APPOINTMENT, VAGINAL/RECTAL EXAMINATION, SURGICAL PROCEDURE, OR ANY OTHER EXPOSURE?NO LATEX RISK : HAVE YOU EVER HAD ANY DIFFICULTY BREATHING OR HIVES AFTER EATING OR HANDLING ANY FRUITS, OR VEGETABLES; SUCH KIWI, BANANAS, STONE FRUITS, OR CHESTNUTSNO LATEX RISK : DO YOU HAVE A PREVIOUS PERSONAL HISTORY OF MORE THAN NINE SURGERIES, SPINA BIFIDA, OR REPEATED CATHERIZATIONS? NO LATEX RISK : ARE YOU FREQUENTLY EXPOSED TO LATEX PRODUCTS IN YOUR OCCUPATION?NO DATE ASKED : 08/24/2020 ALCOHOL SCREENING DID YOU HAVE A DRINK CONTAINING ALCOHOL IN THE PAST YEAR?YES HOW OFTEN DID YOU HAVE SIX OR MORE DRINKS ON ONE OCCASION IN THE PAST YEAR?NEVER (0 POINTS) HOW MANY DRINKS DID YOU HAVE ON A TYPICAL DAY WHEN YOU WERE DRINKING IN THE PAST YEAR?1 OR 2 (0 POINTS) HOW OFTEN DID YOU HAVE A DRINK CONTAINING ALCOHOL IN THE PAST YEAR?MONTHLY OR LESS (1 POINT) POINTS1 INTERPRETATIONNEGATIVE RECREATIONAL DRUG USE DRUG USE?NO CAFFEINE CAFFEINE USE?YES 1-2 SODA/DAY SEXUAL HX HAD SEX IN THE LAST 12 MONTHS (VAGINAL, ORAL, OR ANAL)?NO HAVE YOU EVER HAD AN STD?NO CHRISTIAN CHRISTIAN NO EVANGELICAL BELIEFS THAT WOULD IMPACT HEALTH CARE. 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 EXERCISE: WALKS. MARITAL STATUS: . OTHERS AT HOME: SPOUSE. PAIN CLINIC PFS, CLERGY, PUBLIC HEALTH REFERRALS PFS REFERRAL NEEDED?NO CLERGY REFERRAL NEEDED?NO PUBLIC HEALTH REFERRAL NEEDED?NO WAS THE PROVIDER NOTIFIED OF ANY PERTINENT INFO?YES N/A HAS THE PATIENT BEEN EDUCATED REGARDING HIS/HER PLAN OF CARE?YES HAS THE PATIENT BEEN EDUCATED REGARDING PAIN, THE RISK FOR PAIN, THE IMPORTANCE OF EFFECTIVE PAIN MANAGEMENT, AND THE PAIN ASSESSMENT PROCESS?YES ADVANCE DIRECTIVE ADVANCE DIRECTIVE DISCUSSED WITH PATIENT:YES HCP ON FILE - , AUDREY DAIGLE [phone] HOSPITALIZATION/MAJOR DIAGNOSTIC PROCEDURE SURGERY RELATED GUILLAIN BARRE REQUIRING PLASMAPHERESIS, IVIG, STEROIDS AND INTUBATION [facility] 09/2015 PNEUMONIA, ILEITIS 02/2018 REVIEW OF SYSTEMS CONSTITUTIONAL: ANY RECENT FEVER NO . CHILLS NO . WEIGHT CHANGE OF UNKNOWN REASONS NO . GASTROENTEROLOGY: NEW UNEXPLAINABLE CHANGES IN BOWEL CONTROL NO . CONSTIPATION NO . GENITOURINARY: ANY NEW CHANGE IN BLADDER CONTROL? NO . NEUROLOGY: NEW ONSET DIZZINESS OR NEUROLOGICAL CHANGES NOT MENTIONED NO . NEW NUMBNESS OR PAIN PATTERNS NOT MENTIONED AND PERTINENT TO TODAY'S VISIT NO . CARDIOLOGY: NEW CHEST PRESSURE NO . NEW CHEST PAIN NO . RESPIRATORY: UNEXPLAINABLE COUGH NO . NEW SHORTNESS OF BREATH NO . 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 ASSESSMENTS LUMBAR FACET ARTHROPATHY - M12.88 (PRIMARY) TREATMENT LUMBAR FACET ARTHROPATHY NOTES: BILATERAL LUMBAR DIAGNOSTIC FACET BLOCK, L4-5, L5-S1 11/15/20 CALLED PATIENT AND REVIEWED PRE-PROCEDURE INSTRUCTIONS. PATIENT VERBALIZED AN UNDERSTANDING. Lesly BONILLA RN TOTAL TIME SPENT DURING TELEPHONE VISIT WAS APPROXIMATELY 12 MINUTES. OTHERS NOTES: VITALS NOT OBTAINED DUE TO VIRTUAL VISIT. Lesly BONILLA RN. DISPOSITION & COMMUNICATION FOLLOW UP 1 WEEK POST PROCEDURE/TELEPHONE FOLLOW-UP (REASON: BILATERAL LUMBAR DIAGNOSTIC FACET BLOCK, L4-5, L5-S1) ELECTRONICALLY SIGNED BY MARTÍN GOLDBERG ON 11/16/2020 AT 02:19 PM EST DISCLAIMER : THIS IS A VISIT SUMMARY EXTRACTED FROM THE [employer] CHART. IT IS NOT A COPY OF THE [employer] PROGRESS NOTE. TERESA
== END ==
LOC: M PAIN 09:00
PROVIDERS: ATTEND Nurse Practitioner Family
DX: M12.88 Other specific arthropathies, not elsewhere classified, other specified site (principal); E11.9 Type 2 diabetes mellitus without complications; G43.909 Migraine, unspecified, not intractable, without status migrainosus; K21.9 Gastro-esophageal reflux disease without esophagitis; Z98.84 Bariatric surgery status; Z91.09 Other allergy status, other than to drugs and biological substances; Z79.82 Long term (current) use of aspirin; Z79.84 Long term (current) use of oral hypoglycemic drugs; Z79.899 Other long term (current) drug therapy

== ENCOUNTER → 2020-11-25 | Outpatient (CLI) | payer OTHER ==
[~2020-11-25] MED LIST changes: -CYAN500T10 PO; +GABA-282 PO; -GABA-843 PO; +VITA500T37 PO
== END ==
LOC: M LABSMTC 10:34
PROVIDERS: ATTEND Anesthesiology
DX: Z20.822 Contact with and (suspected) exposure to COVID-19 (principal)

== ENCOUNTER → 2020-11-30 | Outpatient (CLI) | payer OTHER ==
[~2020-11-30] MED LIST changes: +BUPIVACAINE HCL 0.25% 30ML VIAL As Ordered ONE; +ISOVUE-M 300 61% 15ML VIAL As Ordered ONE; +LIDOCAINE 1% SDV 30ML VIAL As Ordered ONE; +TRIAMCINOLONE ACETONIDE SUSP 40 MG/ML VIAL (J3301) As Ordered ONE; +diazePAM 5MG TABLET As Ordered ONE; +oxyCODONE 5MG TAB As Ordered ONE
--- NOTE | 2020-11-30 15:31 | REP ---
INDICATION: BILAT LFBT. COMPARISON: None. TECHNIQUE: Two C-arm views lower lumbar facet joints obtained. FINDINGS: [place] are seen along the lower lumbar facet joints bilaterally. A small amount of contrast is injected. IMPRESSION: 42 seconds of fluoroscopy time is utilized. <Electronically signed by Tom Buck > 11/30/20 1522
--- NOTE | 2020-12-02 02:03 | ECWPNPC ---
PATIENT NAME: HAI DAIGLE : 1965 GENDER: MALE VISIT DATE: 11/30/2020 DISCHARGE DATE: 11/30/20 1356 VISIT LOCKED DATE TIME: PHYSICIAN: BONY ANTOINE MD RESOURCE: BONY ANTOINE MD REASON FOR APPOINTMENT 1. BILATERAL THERAPEUTIC LUMBAR FACET BLOCK L4-5, L5-S1 HISTORY OF PRESENT ILLNESS GENERAL: 55-YEAR-OLD MALE PATIENT WITH A HISTORY OF CHRONIC LOW BACK PAIN. THE PATIENT DESCRIBES THE PAIN ACHING, SEVERE AND STABBING WITH A PAIN SCORE RANGING FROM 6-10/10 AT THE BACK. THIS IS AFFECTING HIS ABILITY TO DO ACTIVITIES SUCH HAS GOING TO THE MALL, CLEANING HIS HOUSE, WORKING AND MOVING AROUND. THE PATIENT HAS DONE FACET BLOCKS IN THE PAST WITH GOOD PAIN RELIEF. HE HAS HAD AN EXACERBATION IN THIS PAIN IN THE LAST MOTH. HE IS HAVING DIFFICULTY MOVING. FALL RISK SCREENING: SCREENING :NO FALLS REPORTED IN THE LAST YEAR PAIN SCREENING: PATIENT HAS A COMPLAINT OF ACUTE OR CHRONIC PAIN :YES LOCATION OF PAIN:LOW BACK, LEG(S) INTENSITY OF PAIN (SCALE OF 1 TO 10):8 WHAT DOES YOUR PAIN FEEL LIKE:SHARP, STABBING DURATION:CONTINOUS, CONSTANT PAIN IS INCREASED BY:ACTIVITIES PAIN IS DECREASED BY:USE OF PAIN MEDICATIONS, OTHERS HOT TUB TREATMENT/MEDICATIONS USED TO MANAGE PAIN:OPIOIDS LEVEL OF RELIEF FROM PAIN TREATMENTS IN THE PAST:25% PAIN HAS INTERFERED WITH THE FOLLOWING:BATHING/DRESSING, WALKING ABILITY, EMPLOYMENT, HOUSEWORK, SLEEP, TRANSPORTATION, TOILETING NURSING NOTE: -. PAIN CENTER INTAKE QUESTIONS: DO YOU HAVE A HISTORY OF MRSA? :NO DO YOU TAKE A BLOOD THINNERS? :NO DO YOU HAVE ANY BLEEDING DISORDERS? :NO ANY NEW NUMBNESS OR WEAKNESS IN YOUR LEGS OR ARMS? :YES LEG WEAKNESS ANY PACEMAKER,DEFIBRILLATOR, OR DORSAL COLUMN STIMULATOR? :NO DO YOU HAVE ANY RASHES OR OPEN SORES? :NO ARE YOU ALLERGIC TO IV DYE? :NO ARE YOU DIABETIC? :YES ANY NEW PROBLEMS WITH YOUR MEDICATIONS? :NO HAVE YOU RECEIVED A VACCINE IN THE PAST 30 DAYS? :YES IF SO WHAT VACCINE AND WHEN? COVID 2 WEEKS AGO DO YOU PLAN TO RECEIVE A VACCINE IN THE NEXT 21 DAYS? :YES IF SO WHAT VACCINE AND WHEN? COVID VACCINE 12/08/20 DO YOU TAKE ANY IMMUNOSUPPRESSIVE MEDICATIONS? :YES HUMIRA 11/11/20, NEXT DOSE IS 1 WEEK AFTER PAIN PROCEDURE ANY HISTORY OF SEIZURES? :NO ANY HISTORY OF CARDIAC ISSUES OR EVENTS? :NO DO YOU HAVE SLEEP APNEA? :NO ANY RECENT HEAD INJURY? :NO DO YOU HAVE ANY NEW INFECTIONS? :NO IS THERE A CHANCE YOU COULD BE ? :NO ARE YOU BREAST FEEDING? :NO WHEN DID YOU LAST EAT? : 11/30/20 0500 WHEN DID YOU LAST DRINK? : 11/30/20 0500 WHAT DID YOU LAST DRINK? : WATER NAME OF PERSON DRIVING YOU HOME? : CHETNA DO YOU HAVE ANY OTHER QUESTIONS OR CONCERNS? : - CURRENT MEDICATIONS TAKING ASPIR-81 81 MG TABLET DELAYED RELEASE 1 TABLET ORALLY EVERY OTHER DAY TAKING CITRACAL PLUS 400MG TABLET 2 TABS ORALLY AT BEDTIME TAKING FLECAINIDE ACETATE 50 MG TABLET 1 TABLET ORALLY EVERY 12 HRS TAKING VITAMIN D3 MAXIMUM STRENGTH 5000 UNIT CAPSULE 1 CAPSULE ORALLY DAILY TAKING VITAMIN B-12 500 MCG TABLET 1 TABLET ORALLY ONCE A DAY TAKING TRULICITY 0.75 MG/0.5ML SOLUTION PEN-INJECTOR SUBCUTANEOUS WEEKLY, NOTES: FRIDAY TAKING PRILOSEC 40 MG CAPSULE DELAYED RELEASE 1/2 CAPSULE ORALLY ONCE A DAY TAKING METFORMIN HCL 1000 MG TABLET 1 TABLET WITH MEALS ORALLY TWICE DAILY, NOTES: 11/29/20 TAKING PROBIOTIC 1 CAPSULE 1 CAP ORALLY DAILY TAKING MAGNESIUM 400 MG CAPSULE 1 CAP ORALLY BID TAKING BISOPROLOL FUMARATE 5 MG TABLET 1 TABLET ORALLY ONCE A DAY, NOTES: 11/29/20 TAKING LIPITOR 10 MG TABLET 1 TABLET ORALLY ONCE A DAY TAKING MULTI FOR HIM TABLET 2 TABS ORALLY DAILY TAKING TAMSULOSIN HCL 0.4 MG CAPSULE 1 CAPSULE ONCE A DAY TAKING ZOFRAN 8 MG TABLET 1 TABLET ORALLY Q 8 HOURS NEEDED TAKING LOSARTAN POTASSIUM 25 MG TABLET 1 TABLET ORALLY ONCE A DAY, NOTES: 11/29/20 TAKING DICYCLOMINE HCL 20 MG TABLET 1 TABLET NEEDED ORALLY QID, NOTES: PRN TAKING JARDIANCE 25 MG TABLET 1 TABLET ORALLY ONCE A DAY, NOTES: 11/29/20 TAKING POTASSIUM CHLORIDE 20 MEQ TABLET EXTENDED RELEASE 1 TABLET WITH FOOD ORALLY ONCE A DAY TAKING GABAPENTIN 300 MG CAPSULE 1 CAPSULE ORALLY BEFORE BEDTIME, NOTES: 11/29/20 TAKING TIZANIDINE HCL 2 MG TABLET 1 TABLET NEEDED ORALLY EVERY 8 HRS, NOTES: 11/29/20 TAKING CYMBALTA 60 MG CAPSULE DELAYED RELEASE PARTICLES 1 CAPSULE ORALLY BEFORE BEDTIME, NOTES: 11/29/20 TAKING TRAZODONE HCL 100 MG TABLET 1/2 TABLET AT BEDTIME ORALLY ONCE A DAY, NOTES: 11/28/20 TAKING SOMA 350 MG TABLET 1 TABLET NEEDED ORALLY FOR SPASMS AND PAIN EVERY 12 HOURS NEEDED MDD2, NOTES: 11/29/20 TAKING PERCOCET 5-325 MG TABLET 1 TABLET NEEDED ORALLY EVERY 6 HRS MDD4, NOTES: 11/29/20 TAKING HUMIRA 20 MG/0.4ML PREFILLED SYRINGE KIT DIRECTED SUBCUTANEOUS , NOTES: 11/11/20 NOT-TAKING COLCRYS 0.6 MG TABLET 1 TABLET PRN ORALLY ONCE A DAY NOT-TAKING PREDNISONE 5 MG TABLET 1 TABLET ORALLY ONCE A DAY NOT-TAKING COLESTIPOL HCL 1 GM TABLET 1 TABLET ORALLY BID, NOTES: 08/09/20201999 NOT-TAKING MELATONIN 5 MG TABLET 1 TABLET AT BEDTIME NEEDED WITH FOOD ORALLY ONCE A DAY, NOTES: PRN NOT-TAKING AMLODIPINE BESYLATE 2.5 MG TABLET 1 TABLET ORALLY ONCE A DAY NOT-TAKING POTASSIUM BICARB & CHLORIDE 20 MEQ PACKET 2 TABS ORALLY TWICE A DAY NOT-TAKING SPIRONOLACTONE 25 MG TABLET 1 TABLET ORALLY ONCE A DAY NOT-TAKING TOPIRAMATE 50 MG TABLET 1 TABLET ORALLY BEFORE BEDTIME NOT-TAKING PERCOCET 5-325 MG TABLET 1 TO 2 TAB ORALLY Q6H PRN MDD 4, NOTES: DUPLICATE NOT-TAKING ENTOCORT EC 3 MG CAPSULE DELAYED RELEASE PARTICLES DIRECTED ORALLY , NOTES: 2 WEEKS MEDICATION LIST REVIEWED AND RECONCILED WITH THE PATIENT PAST MEDICAL HISTORY DIABETES MIGRAINES PAF - INTERMITTENT A-FIB HTN GERD HIGH CHOLESTEROL GUILLAIN BARRE PNEUMONIA ILIEITIS A FIB WITH RVR DIVERTICULITIS BPH ED MULTIPLE GI PROBLEMS CHRON'S ALLERGIES SURGICAL GLUE: RASH, ITCHING - ALLERGY SOCIAL HISTORY GENERAL: TOBACCO USE ARE YOU A:NONSMOKER LATEX QUESTIONNAIRE LATEX ALLERGY : HAVE YOU EVER DEVELOPED ANY TYPE OF REACTION AFTER HANDLING LATEX PRODUCTS SUCH RUBBER GLOVES, CONDOMS, DIAPHRAGMS, BALLOONS, SOCKS, OR UNDERWEAR?NO LATEX ALLERGY : HAVE YOU EVER DEVELOPED ANY TYPE OF REACTION DURING OR AFTER DENTAL APPOINTMENT, VAGINAL/RECTAL EXAMINATION, SURGICAL PROCEDURE, OR ANY OTHER EXPOSURE?NO LATEX RISK : HAVE YOU EVER HAD ANY DIFFICULTY BREATHING OR HIVES AFTER EATING OR HANDLING ANY FRUITS, OR VEGETABLES; SUCH KIWI, BANANAS, STONE FRUITS, OR CHESTNUTSNO LATEX RISK : DO YOU HAVE A PREVIOUS PERSONAL HISTORY OF MORE THAN NINE SURGERIES, SPINA BIFIDA, OR REPEATED CATHERIZATIONS? NO LATEX RISK : ARE YOU FREQUENTLY EXPOSED TO LATEX PRODUCTS IN YOUR OCCUPATION?NO DATE ASKED : 11/30/2020 ALCOHOL SCREENING DID YOU HAVE A DRINK CONTAINING ALCOHOL IN THE PAST YEAR?YES HOW OFTEN DID YOU HAVE SIX OR MORE DRINKS ON ONE OCCASION IN THE PAST YEAR?NEVER (0 POINTS) HOW MANY DRINKS DID YOU HAVE ON A TYPICAL DAY WHEN YOU WERE DRINKING IN THE PAST YEAR?1 OR 2 (0 POINTS) HOW OFTEN DID YOU HAVE A DRINK CONTAINING ALCOHOL IN THE PAST YEAR?MONTHLY OR LESS (1 POINT) POINTS1 INTERPRETATIONNEGATIVE RECREATIONAL DRUG USE DRUG USE?NO CAFFEINE CAFFEINE USE?YES 1-2 SODA/DAY SEXUAL HX HAD SEX IN THE LAST 12 MONTHS (VAGINAL, ORAL, OR ANAL)?NO HAVE YOU EVER HAD AN STD?NO TEMPLE TEMPLE NO PENTECOSTALISM BELIEFS THAT WOULD IMPACT HEALTH CARE. 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 EXERCISE: WALKS. MARITAL STATUS: . OTHERS AT HOME: SPOUSE. - PFS REFERRAL NEEDED?NO CLERGY REFERRAL NEEDED?NO PUBLIC HEALTH REFERRAL NEEDED?NO WAS THE PROVIDER NOTIFIED OF ANY PERTINENT INFO?YES N/A HAS THE PATIENT BEEN EDUCATED REGARDING HIS/HER PLAN OF CARE?YES HAS THE PATIENT BEEN EDUCATED REGARDING PAIN, THE RISK FOR PAIN, THE IMPORTANCE OF EFFECTIVE PAIN MANAGEMENT, AND THE PAIN ASSESSMENT PROCESS?YES ADVANCE DIRECTIVE ADVANCE DIRECTIVE DISCUSSED WITH PATIENT:YES HCP ON FILE - , AUDREY DAIGLE [phone] VITAL SIGNS WT 169.0 LBS, HT 70 IN, BMI 24.25 INDEX, BP 142/73 MM HG, HR 81 /MIN, RR 18 /MIN, TEMP 98.1 F, OXYGEN SAT % 98%, SAFE IN ENV? (Y/N) Y, NA INITIALS AW 1200, REVIEWED BY: EM. EXAMINATION GENERAL EXAMINATION: THE PATIENT IS ALERT, ORIENTED TIMES THREE AND COOPERATIVE. LUNGS ARE CLEAR TO AUSCULTATION. HEART SHOWS REGULAR RHYTHM, NO MURMURS AND NO GALLOPS. THERE IS TENDERNESS IN THE LOWER BACK IN THE PARASPINAL MUSCLE GROUP IN THE FACET JOINTS. MRI OF THE LUMBAR SPINE DATED 05/04/2018 SHOWS FACET ARTHROPATHY CHANGES. ASSESSMENTS SPONDYLOSIS WITHOUT MYELOPATHY OR RADICULOPATHY, LUMBAR REGION - M47.816 (PRIMARY) SPONDYLOSIS OF LUMBOSACRAL REGION WITHOUT MYELOPATHY OR RADICULOPATHY - M47.817 TREATMENT SPONDYLOSIS WITHOUT MYELOPATHY OR RADICULOPATHY, LUMBAR REGION SMC FACET BLOCK (PAIN)[id number] MEDICATION: VALIUM TAB 5MG ORALLY (DIAZEPAM)ANGELO TORRES 11/30/2020 12:38:12 PM > VERIFIED TIAN ASH 11/30/2020 12:39:35 PM > LOT [id number], EXP 08/2022 TIAN ASH 11/30/2020 12:41:43 PM > ADMINISTERED MEDICATION: OXYCODONE HCL TAB 5MG ORALLY ANGELO TORRES 11/30/2020 12:38:25 PM > VERIFIED TIAN ASH 11/30/2020 12:40:09 PM > LOT [id number], EXP 12/2021 TIAN ASH 11/30/2020 12:41:57 PM > ADMINISTERED COMPLETION OF PROCEDURAL VISIT WHEN MEETS CRITERIA CLINICAL NOTES: I DISCUSSED ALTERNATIVES WITH MR. DAIGLE. WE AGREE ON PERFORMING A BILATERAL THERAPEUTIC LUMBAR FACET JOINT L4-L5, L5-S1. I AM LOOKING FOR LONG LASTING PAIN RELIEF. THE PATIENT UNDERSTANDS AND AGREES WITH THE PLAN. I, SELAM VARELA, DOCUMENTED THE ABOVE INFORMATION ACTING A SCRIBE FOR DR. ANTOINE. I HAVE REVIEWED THE ABOVE DOCUMENT, WRITTEN BY SELAM VARELA, STAFF AIR DEFENSE OFFICER, AND I VERIFY THAT IT IS ACCURATE. SPONDYLOSIS OF LUMBOSACRAL REGION WITHOUT MYELOPATHY OR RADICULOPATHY SMC FACET BLOCK (PAIN)[id number] PROCEDURES PAIN NURSING RECORD PROCEDURE IN ROOM 1300, PHYSICIAN IN ROOM 1318, START 1329, FINISH 1338, PHYSICIAN OUT OF ROOM 1340, OUT OF ROOM 1345, ECG NORMAL SINUS, PATIENT SHIELDED NO, SAFETY STRAP YES, PREP CHLOROPREP E MIHIR, GUARD CAPTAIN, DRESSING TEGADERM DR ANTOINE LOC: 1. ALERT, ORIENTED, TIAN ASH 11/30/2020 1:24:04 PM > RESP: 1. REGULAR, NO DYSPNEA, VALENTINO ASHBETH 11/30/2020 1:24:08 PM > COLOR: 1. PINK, VALENTINO ASHBETH 11/30/2020 1:24:10 PM > SKIN: 1. WARM, DRY, VALENTINO ASHBETH 11/30/2020 1:24:14 PM > POSITION: 1. PRONE, VALENTINO ASHBETH 11/30/2020 1:24:17 PM > VITALS: 147/83, 83, 16 96%, VALENTINO ASHBETH 11/30/2020 1:17:52 PM > 139/72, 80, 16, 95%, MIHIRTIAN 11/30/2020 1:32:31 PM > 146/86, 86, 18, 96%, MIHIRTIAN 11/30/2020 1:45:17 PM > 148/79, 80, 16, 95%, VALENTINO ASHBETH 11/30/2020 1:58:41 PM > COMPLETION OF PROCEDURE APPOINTMENT: POST PAIN 1, DRESSING SITE DRY AND INTACT, IV N/A, GAIT STEADY, TEACHING COMPLETED, PATIENT ACKNOWLEDGES UNDERSTANDING YES, PROCEDURE APPOINTMENT COMPLETED AT 1349 PN LUMBAR FACET BLOCK THERAPEUTIC PRE PROCEDURE DIAGNOSIS LUMBAR SPONDYLOSIS, LUMBOSACRAL SPONDYLOSIS POST PROCEDURE DIAGNOSIS LUMBAR SPONDYLOSIS, LUMBOSACRAL SPONDYLOSIS PROCEDURE BILATERAL L4-L5 AND BILATERAL L5-S1 LUMBAR FACET THERAPEUTIC BLOCK SURGEON DR. BONY ANTOINE CUSTODIAL OFFICER NONE ANESTHESIA LOCAL PRE PROCEDURE NOTE THE PATIENT HAS A HISTORY OF CHRONIC LOW BACK PAIN. I EVALUATED THE PATIENT AND REVIEWED THE CHART. I WENT OVER THE RISKS, ALTERNATIVES, AND BENEFITS ASSOCIATED WITH THIS PROCEDURE. THE PATIENT WOULD LIKE TO PROCEED AND GIVES CONSENT TO PERFORM THE PROCEDURE. THE PATIENT DENIES UNEXPLAINABLE WEIGHT LOSS, FEVER, CHILLS, OR NEW CHANGES IN URINARY OR BOWEL CONTROL. THE PATIENT IS COVID-19 NEGATIVE. THE PATIENT HAS A LUMBARIZATION OF S1 DESCRIPTION OF PROCEDURE THE PATIENT WAS BROUGHT TO THE PROCEDURE ROOM AND PLACED IN THE PRONE POSITION. THE LUMBOSACRAL AREA WAS CLEANED WITH CHLORAPREP SOLUTION AND DRAPED ASEPTICALLY. THE PROCEDURE WAS DONE UNDER STERILE CONDITIONS. A TIMEOUT WAS PERFORMED WHERE LATERALITY AND THE SITE OF THE PROCEDURE WERE CHECKED AND CONFIRMED WITH EVERYONE IN THE ROOM. UNDER FLUOROSCOPIC GUIDANCE, THE TARGET POINT WAS SELECTED AT THE RIGHT AND LEFT L4-L5 AND RIGHT AND LEFT L5-S1 FACET JOINTS. TARGET POINT WAS SELECTED AFTER LATERAL ROTATION AND TILT OF THE MAGNIFIER OF THE C-ARM. I CONFIRMED AGAIN WITH EVERYONE IN THE ROOM THE LATERALITY AND SITE OF THE TARGET 1328. LIDOCAINE 0.5% WAS USED TO NUMB THE SKIN AND THE SUBCUTANEOUS TISSUE BELOW IT. SPINAL NEEDLES, 22-GAUGE, WERE ADVANCED UNDER FLUOROSCOPIC GUIDANCE AND FOLLOWING PATIENT FEEDBACK UNTIL THE TARGETS WERE TOUCHED. THE POSITION OF THE NEEDLES WAS VERIFIED WITH AP AND LATERAL VIEWS. AFTER PROPER POSITION OF THE NEEDLES WAS ACHIEVED, ISOVUE-M DYE 30%, 0.1 ML, WAS INJECTED SHOWING ADEQUATE SPREAD OF THE DYE. KENALOG 20 MG WAS INJECTED AT EACH SITE. THEN, A SOLUTION OF 1.0 ML OF BUPIVACAINE 0.125% OF WAS USED TO FLUSH EACH SITE. THE MEDICATION WAS VERIFIED WITH THE NURSE. THERE WAS NO EVIDENCE OF BLOOD, PARESTHESIA OR CEREBROSPINAL FLUID DURING THE PROCEDURE. THE PATIENT WAS SENT TO THE RECOVERY ROOM. THE PATIENT WAS MOVING THE EXTREMITIES AND DOING WELL. THERE WERE NO COMPLICATIONS DURING THE PROCEDURE. ESTIMATED BLOOD LOSS WAS LESS THAN 5 ML. FLUOROSCOPY TIME WAS 41 SECONDS POST PROCEDURE NOTE THE PATIENT WILL BE SEEN IN A FOLLOW UP IN THE NEXT FEW WEEKS. I AM LOOKING FOR LONG LASTING RELIEF FOR THE PATIENT WITH THIS INTERVENTION. INSTRUCTIONS WERE GIVEN, QUESTIONS WERE ANSWERED, AND THE PATIENT EXPRESSED UNDERSTANDING AND AGREES WITH THE PLAN. I, SELAM VARELA, DOCUMENTED THE ABOVE INFORMATION ACTING A SCRIBE FOR DR. ANTOINE. I HAVE REVIEWED THE ABOVE DOCUMENT, WRITTEN BY SELAM VARELA, STAFF AIR DEFENSE OFFICER, AND I VERIFY THAT IT IS ACCURATE PROCEDURE CODES 49312 INJ PARAVERT F JNT L/S 1 LEV, MODIFIERS: 50 [id number] INJ PARAVERT F JNT L/S 2 LEV, MODIFIERS: 50 DISPOSITION & COMMUNICATION FOLLOW UP FOLLOW UP WITH SALT GRINDER (REASON: POST BILATERAL THERAPEUTIC LUMBAR FACET BLOCK L4-L5, L5-S1) ELECTRONICALLY SIGNED BY BONY ANTOINE MD, MD ON 12/01/2020 AT 10:46 AM EST DISCLAIMER : THIS IS A VISIT SUMMARY EXTRACTED FROM THE [facility] CHART. IT IS NOT A COPY OF THE [facility] PROGRESS NOTE. TERESA
== END ==
LOC: M PAIN 12:15
PROVIDERS: ATTEND Anesthesiology
DX: M47.816 Spondylosis without myelopathy or radiculopathy, lumbar region (principal); M47.817 Spondylosis without myelopathy or radiculopathy, lumbosacral region; E11.9 Type 2 diabetes mellitus without complications; G43.909 Migraine, unspecified, not intractable, without status migrainosus; I48.0 Paroxysmal atrial fibrillation; I10 Essential (primary) hypertension; K21.9 Gastro-esophageal reflux disease without esophagitis; E78.00 Pure hypercholesterolemia, unspecified; N40.0 Benign prostatic hyperplasia without lower urinary tract symptoms; K50.90 Crohn's disease, unspecified, without complications; Z79.82 Long term (current) use of aspirin; Z79.84 Long term (current) use of oral hypoglycemic drugs; Z79.891 Long term (current) use of opiate analgesic; Z79.899 Other long term (current) drug therapy; Z91.048 Other nonmedicinal substance allergy status
CPT/HCPCS: 64493; 64494; J3301; Q9967

== ENCOUNTER → 2020-12-12 | Outpatient (CLI) | payer OTHER ==
[~2020-12-12] MED LIST changes: -BUPIVACAINE HCL 0.25% 30ML VIAL As Ordered ONE; -ISOVUE-M 300 61% 15ML VIAL As Ordered ONE; -LIDOCAINE 1% SDV 30ML VIAL As Ordered ONE; -TRIAMCINOLONE ACETONIDE SUSP 40 MG/ML VIAL (J3301) As Ordered ONE; -diazePAM 5MG TABLET As Ordered ONE; -oxyCODONE 5MG TAB As Ordered ONE
[2020-12-12 14:41] LABS: HEMATOCRIT 44.1 % (42.0-52.0); HEMOGLOBIN 14.8 g/dl (13.5-17.5); MEAN CORPUSCULAR HEMOGLOBIN 29.8 pg (27.0-33.0); MEAN CORPUSCULAR HGB CONC 33.6 g/dl (32.0-36.5); MEAN CORPUSCULAR VOLUME 88.9 fl (80.0-96.0); PLATELET COUNT, AUTOMATED 235 10^3/uL (150-450); RED BLOOD COUNT 4.96 10^6/uL (4.30-6.10); WHITE BLOOD COUNT 6.8 10^3/uL (4.0-10.0)
[2020-12-12 15:08] LABS: ALBUMIN 3.7 GM/DL (3.2-5.2); ALT/SGPT 18 U/L (12-78); BILIRUBIN,TOTAL 0.3 MG/DL (0.2-1.0); BLOOD UREA NITROGEN 18 MG/DL (7-18); CALCIUM LEVEL 9.9 MG/DL (8.5-10.1); CARBON DIOXIDE LEVEL 30 MEQ/L (21-32); CHLORIDE LEVEL 103 MEQ/L (98-107); CREATININE FOR GFR 0.94 MG/DL (0.70-1.30); GLOMERULAR FILTRATION RATE > 60.0 (>56); GLUCOSE, FASTING 284 MG/DL (70-100); POTASSIUM SERUM 3.4 MEQ/L (3.5-5.1); SODIUM LEVEL 140 MEQ/L (136-145)
[2020-12-12 15:20] LABS: TOTAL 25(OH) VITAMIN D 37.8 NG/ML (30.0-100.0); VITAMIN B12 LEVEL 1313 PG/ML (247-911)
[2020-12-12 17:44] LABS: ERYTHROCYTE SEDIMENTATION RATE 4 mm/hr (0-20)
== END ==
LOC: M LAB 14:04
PROVIDERS: ATTEND Internal Medicine Gastroenterology
DX: K50.00 Crohn's disease of small intestine without complications (principal); E55.9 Vitamin D deficiency, unspecified; K44.9 Diaphragmatic hernia without obstruction or gangrene; K21.9 Gastro-esophageal reflux disease without esophagitis; R19.7 Diarrhea, unspecified; Z80.0 Family history of malignant neoplasm of digestive organs

== ENCOUNTER → 2020-12-14 | Outpatient (CLI) | payer OTHER ==
--- NOTE | 2020-12-17 23:11 | ECWPNPC ---
PATIENT NAME: HAI DAIGLE : 1965 GENDER: MALE VISIT DATE: 12/14/2020 DISCHARGE DATE: 12/14/20 0856 VISIT LOCKED DATE TIME: PHYSICIAN: BRITT LANCASTER RESOURCE: BRITT LANCASTER REASON FOR APPOINTMENT 1. POST BILATERAL THERAPEUTIC LUMBAR FACET BLOCK L4-5, L5-S1 HISTORY OF PRESENT ILLNESS GENERAL: PATIENT IS AGREEABLE TO TELEPHONE VISIT TODAY. THIS IS A POST PROCEDURE FOLLOW-UP. HAD BILATERAL THERAPEUTIC LUMBAR FACET BLOCK L4-5, L5-S1 ON 11/30/2020. REPORTS MARKED REDUCTION IN PAIN FOR 3 DAYS THEN PAIN GRADUALLY RETURNED TO BASELINE. HAS BEEN QUITE UNCOMFORTABLE PAST FEW DAYS. PAIN IS LOCATED ACROSS THE LOWER BACK. RIGHT SIDE SEEMS WORSE THAN LEFT. HAS RESPONDED WELL TO RADIOFREQUENCY IN THE PAST. IS CURRENTLY ON HUMIRA. DISCUSSED TREATMENT PLAN.- -. FALL RISK SCREENING: SCREENING :NO FALLS REPORTED IN THE LAST YEAR PAIN SCREENING: PATIENT HAS A COMPLAINT OF ACUTE OR CHRONIC PAIN :YES LOCATION OF PAIN:UPPER BACK, LOW BACK, LEFT HIP, RIGHT HIP INTENSITY OF PAIN (SCALE OF 1 TO 10):7 WHAT DOES YOUR PAIN FEEL LIKE:CONTINOUS, SHARP, STABBING DURATION:CONTINOUS, CONSTANT, STEADY, AWAKENS FROM SLEEP PAIN IS INCREASED BY:ACTIVITIES, PROLONGED STANDING PAIN IS DECREASED BY:USE OF PAIN MEDICATIONS, OTHERS HOT TUB, MEDICATION NURSING NOTE: - -. PAIN CENTER INTAKE QUESTIONS: DO YOU HAVE A HISTORY OF MRSA? :NO DO YOU TAKE A BLOOD THINNERS? :NO 81 MG. ASPIRIN DO YOU HAVE ANY BLEEDING DISORDERS? :NO ANY NEW NUMBNESS OR WEAKNESS IN YOUR LEGS OR ARMS? :YES NUMBNESS IN LEGS ANY PACEMAKER,DEFIBRILLATOR, OR DORSAL COLUMN STIMULATOR? :NO DO YOU HAVE ANY RASHES OR OPEN SORES? :NO ARE YOU ALLERGIC TO IV DYE? :NO ARE YOU DIABETIC? :YES ANY NEW PROBLEMS WITH YOUR MEDICATIONS? :NO HAVE YOU RECEIVED A VACCINE IN THE PAST 30 DAYS? :YES IF SO WHAT VACCINE AND WHEN? SECOND COVID VACCINATION RECEIVED ON 12/05/2020 DO YOU PLAN TO RECEIVE A VACCINE IN THE NEXT 21 DAYS? :NO DO YOU NEED ANY PRESCRIPTION? :NO DO YOU TAKE ANY IMMUNOSUPPRESSIVE MEDICATIONS? :YES NAYELY IS THERE A CHANCE YOU COULD BE ? :NO ARE YOU BREAST FEEDING? :NO CURRENT MEDICATIONS TAKING ASPIR-81 81 MG TABLET DELAYED RELEASE 1 TABLET ORALLY EVERY OTHER DAY TAKING CITRACAL PLUS 400MG TABLET 2 TABS ORALLY AT BEDTIME TAKING FLECAINIDE ACETATE 50 MG TABLET 1 TABLET ORALLY EVERY 12 HRS TAKING VITAMIN D3 MAXIMUM STRENGTH 5000 UNIT CAPSULE 1 CAPSULE ORALLY DAILY TAKING VITAMIN B-12 500 MCG TABLET 1 TABLET ORALLY ONCE A DAY TAKING TRULICITY 0.75 MG/0.5ML SOLUTION PEN-INJECTOR SUBCUTANEOUS WEEKLY, NOTES: FRIDAY TAKING PRILOSEC 40 MG CAPSULE DELAYED RELEASE 1/2 CAPSULE ORALLY ONCE A DAY TAKING METFORMIN HCL 1000 MG TABLET 1 TABLET WITH MEALS ORALLY TWICE DAILY, NOTES: 11/29/20 TAKING PROBIOTIC 1 CAPSULE 1 CAP ORALLY DAILY TAKING MAGNESIUM 400 MG CAPSULE 1 CAP ORALLY BID TAKING BISOPROLOL FUMARATE 5 MG TABLET 1 TABLET ORALLY ONCE A DAY, NOTES: 11/29/20 TAKING LIPITOR 10 MG TABLET 1 TABLET ORALLY ONCE A DAY TAKING MULTI FOR HIM TABLET 2 TABS ORALLY DAILY TAKING TAMSULOSIN HCL 0.4 MG CAPSULE 1 CAPSULE ONCE A DAY TAKING ZOFRAN 8 MG TABLET 1 TABLET ORALLY Q 8 HOURS NEEDED TAKING LOSARTAN POTASSIUM 25 MG TABLET 1 TABLET ORALLY ONCE A DAY, NOTES: 11/29/20 TAKING DICYCLOMINE HCL 20 MG TABLET 1 TABLET NEEDED ORALLY QID, NOTES: PRN TAKING JARDIANCE 25 MG TABLET 1 TABLET ORALLY ONCE A DAY, NOTES: 11/29/20 TAKING POTASSIUM CHLORIDE 20 MEQ TABLET EXTENDED RELEASE 1 TABLET WITH FOOD ORALLY ONCE A DAY TAKING GABAPENTIN 300 MG CAPSULE 1 CAPSULE ORALLY BEFORE BEDTIME, NOTES: 11/29/20 TAKING TIZANIDINE HCL 2 MG TABLET 1 TABLET NEEDED ORALLY EVERY 8 HRS, NOTES: 11/29/20 TAKING CYMBALTA 60 MG CAPSULE DELAYED RELEASE PARTICLES 1 CAPSULE ORALLY BEFORE BEDTIME, NOTES: 11/29/20 TAKING TRAZODONE HCL 100 MG TABLET 1/2 TABLET AT BEDTIME ORALLY ONCE A DAY, NOTES: 11/28/20 TAKING SOMA 350 MG TABLET 1 TABLET NEEDED ORALLY FOR SPASMS AND PAIN EVERY 12 HOURS NEEDED MDD2, NOTES: 11/29/20 TAKING HUMIRA 20 MG/0.4ML PREFILLED SYRINGE KIT DIRECTED SUBCUTANEOUS , NOTES: 12/12/20 TAKING PERCOCET 5-325 MG TABLET 1 TABLET NEEDED ORALLY EVERY 6 HRS MDD4, NOTES: 11/29/20 NOT-TAKING COLCRYS 0.6 MG TABLET 1 TABLET PRN ORALLY ONCE A DAY NOT-TAKING PREDNISONE 5 MG TABLET 1 TABLET ORALLY ONCE A DAY NOT-TAKING COLESTIPOL HCL 1 GM TABLET 1 TABLET ORALLY BID, NOTES: 08/09/20201999 NOT-TAKING MELATONIN 5 MG TABLET 1 TABLET AT BEDTIME NEEDED WITH FOOD ORALLY ONCE A DAY, NOTES: PRN NOT-TAKING AMLODIPINE BESYLATE 2.5 MG TABLET 1 TABLET ORALLY ONCE A DAY NOT-TAKING POTASSIUM BICARB & CHLORIDE 20 MEQ PACKET 2 TABS ORALLY TWICE A DAY NOT-TAKING SPIRONOLACTONE 25 MG TABLET 1 TABLET ORALLY ONCE A DAY NOT-TAKING TOPIRAMATE 50 MG TABLET 1 TABLET ORALLY BEFORE BEDTIME NOT-TAKING PERCOCET 5-325 MG TABLET 1 TO 2 TAB ORALLY Q6H PRN MDD 4, NOTES: DUPLICATE NOT-TAKING ENTOCORT EC 3 MG CAPSULE DELAYED RELEASE PARTICLES DIRECTED ORALLY , NOTES: 2 WEEKS MEDICATION LIST REVIEWED AND RECONCILED WITH THE PATIENT PAST MEDICAL HISTORY DIABETES MIGRAINES PAF - INTERMITTENT A-FIB HTN GERD HIGH CHOLESTEROL GUILLAIN BARRE PNEUMONIA ILIEITIS A FIB WITH RVR DIVERTICULITIS BPH ED MULTIPLE GI PROBLEMS CHRON'S ALLERGIES SURGICAL GLUE: RASH, ITCHING - ALLERGY SOCIAL HISTORY GENERAL: TOBACCO USE ARE YOU A:NONSMOKER LATEX QUESTIONNAIRE LATEX ALLERGY : HAVE YOU EVER DEVELOPED ANY TYPE OF REACTION AFTER HANDLING LATEX PRODUCTS SUCH RUBBER GLOVES, CONDOMS, DIAPHRAGMS, BALLOONS, SOCKS, OR UNDERWEAR?NO LATEX ALLERGY : HAVE YOU EVER DEVELOPED ANY TYPE OF REACTION DURING OR AFTER DENTAL APPOINTMENT, VAGINAL/RECTAL EXAMINATION, SURGICAL PROCEDURE, OR ANY OTHER EXPOSURE?NO DATE ASKED : 11/30/2020 LATEX RISK : HAVE YOU EVER HAD ANY DIFFICULTY BREATHING OR HIVES AFTER EATING OR HANDLING ANY FRUITS, OR VEGETABLES; SUCH KIWI, BANANAS, STONE FRUITS, OR CHESTNUTSNO LATEX RISK : DO YOU HAVE A PREVIOUS PERSONAL HISTORY OF MORE THAN NINE SURGERIES, SPINA BIFIDA, OR REPEATED CATHERIZATIONS? NO LATEX RISK : ARE YOU FREQUENTLY EXPOSED TO LATEX PRODUCTS IN YOUR OCCUPATION?NO ALCOHOL USE: NO. ALCOHOL SCREENING DID YOU HAVE A DRINK CONTAINING ALCOHOL IN THE PAST YEAR?YES HOW OFTEN DID YOU HAVE SIX OR MORE DRINKS ON ONE OCCASION IN THE PAST YEAR?NEVER (0 POINTS) HOW MANY DRINKS DID YOU HAVE ON A TYPICAL DAY WHEN YOU WERE DRINKING IN THE PAST YEAR?1 OR 2 (0 POINTS) HOW OFTEN DID YOU HAVE A DRINK CONTAINING ALCOHOL IN THE PAST YEAR?MONTHLY OR LESS (1 POINT) POINTS1 INTERPRETATIONNEGATIVE RECREATIONAL DRUG USE DRUG USE?NO CAFFEINE CAFFEINE USE?YES 1-2 SODA/DAY SEXUAL HX HAD SEX IN THE LAST 12 MONTHS (VAGINAL, ORAL, OR ANAL)?NO HAVE YOU EVER HAD AN STD?NO HOAHAOISM HOAHAOISM NO GNOSTICIST BELIEFS THAT WOULD IMPACT HEALTH CARE. 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 EXERCISE: WALKS. MARITAL STATUS: . OTHERS AT HOME: SPOUSE. - PFS REFERRAL NEEDED?NO CLERGY REFERRAL NEEDED?NO PUBLIC HEALTH REFERRAL NEEDED?NO WAS THE PROVIDER NOTIFIED OF ANY PERTINENT INFO?YES N/A HAS THE PATIENT BEEN EDUCATED REGARDING HIS/HER PLAN OF CARE?YES HAS THE PATIENT BEEN EDUCATED REGARDING PAIN, THE RISK FOR PAIN, THE IMPORTANCE OF EFFECTIVE PAIN MANAGEMENT, AND THE PAIN ASSESSMENT PROCESS?YES ADVANCE DIRECTIVE ADVANCE DIRECTIVE DISCUSSED WITH PATIENT:YES HCP ON FILE - , AUDREY DAIGLE [phone] REVIEW OF SYSTEMS CONSTITUTIONAL: ANY RECENT FEVER NO . CHILLS NO . WEIGHT CHANGE OF UNKNOWN REASONS NO . GASTROENTEROLOGY: NEW UNEXPLAINABLE CHANGES IN BOWEL CONTROL NO . CONSTIPATION NO . GENITOURINARY: ANY NEW CHANGE IN BLADDER CONTROL? NO . NEUROLOGY: NEW ONSET DIZZINESS OR NEUROLOGICAL CHANGES NOT MENTIONED NO . NEW NUMBNESS OR PAIN PATTERNS NOT MENTIONED AND PERTINENT TO TODAY'S VISIT NO . CARDIOLOGY: NEW CHEST PRESSURE NO . NEW CHEST PAIN NO . RESPIRATORY: UNEXPLAINABLE COUGH NO . NEW SHORTNESS OF BREATH NO . VITAL SIGNS WT 169 LBS, HT 70 IN, BMI 24.25 INDEX, SAFE IN ENV? (Y/N) YES, REVIEWED BY: PHONG TO OBTAIN VITALS DUE TO VIRTUAL VISIT. FALLON RASHEED MA. EXAMINATION GENERAL EXAMINATION: GENERALAWAKE,ALERT ,PLEAASANT . PSYCHAFFECT NORMAL . LUNGS:LUNG VALLADARES ARE CLEAR TO AUSCULTATION BILATERALLY. GOOD MOVEMENT OF AIR . HEART:S1, S2 IN A REGULAR RATE AND RHYTHM. NO SIGNIFICANT MURMURS, RUBS OR GALLOPS NOTED . LUMBAR:PALPATION: + FOR PAIN OVER L/S SPINE. + FOR PAIN OVER L/S PARASPINALS .SPECIFIC POINT TENDERNESS OVER BILAT L4/5-L5/S1 LUMBAR FACETS WITH FACET LOADING. NEUROLOGIC EXAM:NORMAL SENSATION LIGHT TOUCH BILAT. LOWER EXTREMITIES . ASSESSMENTS OTHER CHRONIC PAIN - G89.29 (PRIMARY) SPONDYLOSIS OF LUMBAR REGION WITHOUT MYELOPATHY OR RADICULOPATHY - M47.816 TREATMENT OTHER CHRONIC PAIN PAIN PROCEDURE LOGDATE OF [id number]/21/21PROCEDURE:BILATERAL THERAPEUTIC LUMBAR FACET BLOCK L4-5, L5-S1NGQKMN OF PRE SEDATEPRE-SEDATE VALIUM 5MG; OXYCODONE 5 MGRESULT:MARKED REDUCTION IN PAIN X72 HOURS THEN PAIN GRADUALLY RETURNED TO BASELINE NOTES: RIGHT L4-5, L5-S1 DIAGNOSTIC LUMBAR FACET BLOCK #[address] ANTOINE WHO AGREED WITH TREATMENT PLAN. TOTAL TIME SPENT DURING TELEPHONE VISIT WAS APPROXIMATLEY 12 MINUTES. DISPOSITION & COMMUNICATION FOLLOW UP POST PROCEDURE (REASON: RIGHT L4-5, L5-S1 DIAGNOSTIC LUMBAR FACET BLOCK #2) ELECTRONICALLY SIGNED BY MARTÍN GOLDBERG ON 12/17/2020 AT 09:42 AM EST DISCLAIMER : THIS IS A VISIT SUMMARY EXTRACTED FROM THE [employer] CHART. IT IS NOT A COPY OF THE [employer] PROGRESS NOTE. TERESA
== END ==
LOC: M PAIN 09:30
PROVIDERS: ATTEND Nurse Practitioner Family
DX: M47.816 Spondylosis without myelopathy or radiculopathy, lumbar region (principal); G89.29 Other chronic pain; E11.9 Type 2 diabetes mellitus without complications; G43.909 Migraine, unspecified, not intractable, without status migrainosus; K21.9 Gastro-esophageal reflux disease without esophagitis; Z91.09 Other allergy status, other than to drugs and biological substances; Z79.82 Long term (current) use of aspirin; Z79.84 Long term (current) use of oral hypoglycemic drugs; Z79.899 Other long term (current) drug therapy

== ENCOUNTER → 2020-12-21 | Outpatient (CLI) | payer OTHER | LOC: M LABSMTC 13:18 | PROVIDERS: ATTEND Anesthesiology | DX: Z20.822 Contact with and (suspected) exposure to COVID-19 (principal) ==

== ENCOUNTER → 2020-12-26 | Outpatient (CLI) | payer OTHER ==
[~2020-12-26] MED LIST changes: +BUPIVACAINE HCL 0.25% 30ML VIAL As Ordered ONE; +ISOVUE-M 300 61% 15ML VIAL As Ordered ONE; +LIDOCAINE 1% SDV 30ML VIAL As Ordered ONE
--- NOTE | 2020-12-26 13:28 | REP ---
INDICATION: CHRONIC PAIN. COMPARISON: None. TECHNIQUE: Three views. 84.0 seconds of fluoroscopy time is reported. FINDINGS: A sequence of 3 last image hold fluoroscopically obtained spot radiographs of the lumbar spine document various needle positions and contrast injections associated with injection procedure. IMPRESSION: Procedural imaging. <Electronically signed by Alfredo Stanley > 12/26/20 6280
--- NOTE | 2021-01-03 01:56 | ECWPNPC ---
PATIENT NAME: HAI DAIGLE : 1965 GENDER: MALE VISIT DATE: 12/26/2020 DISCHARGE DATE: 12/26/20 1234 VISIT LOCKED DATE TIME: PHYSICIAN: BONY ANTOINE MD RESOURCE: BONY ANTOINE MD REASON FOR APPOINTMENT 1. BILATERAL DIAGNOSTIC LUMBAR FACET BLOCK #1 L4-L5 HISTORY OF PRESENT ILLNESS GENERAL: -. FALL RISK SCREENING: SCREENING :NO FALLS REPORTED IN THE LAST YEAR PAIN SCREENING: PATIENT HAS A COMPLAINT OF ACUTE OR CHRONIC PAIN :YES LOCATION OF PAIN:LOW BACK INTENSITY OF PAIN (SCALE OF 1 TO 10):6 WHAT DOES YOUR PAIN FEEL LIKE:ACHING, CONTINOUS DURATION:CONTINOUS, CONSTANT, STEADY, ALL DAY PAIN IS INCREASED BY:ACTIVITIES, PROLONGED STANDING PAIN IS DECREASED BY:USE OF PAIN MEDICATIONS, OTHERS HEAT, MASSAGE NURSING NOTE: -. PAIN CENTER INTAKE QUESTIONS: DO YOU HAVE A HISTORY OF MRSA? :NO DO YOU TAKE A BLOOD THINNERS? :NO DO YOU HAVE ANY BLEEDING DISORDERS? :NO ANY NEW NUMBNESS OR WEAKNESS IN YOUR LEGS OR ARMS? :NO ANY PACEMAKER,DEFIBRILLATOR, OR DORSAL COLUMN STIMULATOR? :NO DO YOU HAVE ANY RASHES OR OPEN SORES? :NO ARE YOU ALLERGIC TO IV DYE? :NO ARE YOU DIABETIC? :YES ANY NEW PROBLEMS WITH YOUR MEDICATIONS? :NO HAVE YOU RECEIVED A VACCINE IN THE PAST 30 DAYS? :NO DO YOU PLAN TO RECEIVE A VACCINE IN THE NEXT 21 DAYS? :NO COVID #2 - 12/05/20 DO YOU TAKE ANY IMMUNOSUPPRESSIVE MEDICATIONS? :YES HUMIRA ANY HISTORY OF SEIZURES? :NO ANY HISTORY OF CARDIAC ISSUES OR EVENTS? :NO DO YOU HAVE SLEEP APNEA? :NO ANY RECENT HEAD INJURY? :NO DO YOU HAVE ANY NEW INFECTIONS? :NO IS THERE A CHANCE YOU COULD BE ? :NO ARE YOU BREAST FEEDING? :NO WHEN DID YOU LAST EAT? : -0400 THIS MORNING WHEN DID YOU LAST DRINK? : -0400 THIS MORNING WHAT DID YOU LAST DRINK? : -WATER NAME OF PERSON DRIVING YOU HOME? : MADDY DO YOU HAVE ANY OTHER QUESTIONS OR CONCERNS? : -DENIES CURRENT MEDICATIONS TAKING ASPIR-81 81 MG TABLET DELAYED RELEASE 1 TABLET ORALLY EVERY OTHER DAY TAKING CITRACAL PLUS 400MG TABLET 2 TABS ORALLY AT BEDTIME TAKING FLECAINIDE ACETATE 50 MG TABLET 1 TABLET ORALLY EVERY 12 HRS TAKING VITAMIN D3 MAXIMUM STRENGTH 5000 UNIT CAPSULE 1 CAPSULE ORALLY DAILY TAKING VITAMIN B-12 500 MCG TABLET 1 TABLET ORALLY SUN, TUES, TH, SAT TAKING TRULICITY 0.75 MG/0.5ML SOLUTION PEN-INJECTOR SUBCUTANEOUS WEEKLY, NOTES: FRIDAY TAKING METFORMIN HCL 1000 MG TABLET 1 TABLET WITH MEALS ORALLY TWICE DAILY TAKING MAGNESIUM 400 MG CAPSULE 1 CAP ORALLY BID TAKING BISOPROLOL FUMARATE 5 MG TABLET 1 TABLET ORALLY ONCE A DAY TAKING LIPITOR 10 MG TABLET 1 TABLET ORALLY ONCE A DAY TAKING MULTI FOR HIM TABLET 2 TABS ORALLY DAILY TAKING TAMSULOSIN HCL 0.4 MG CAPSULE 1 CAPSULE ONCE A DAY TAKING ZOFRAN 8 MG TABLET 1 TABLET ORALLY Q 8 HOURS NEEDED TAKING LOSARTAN POTASSIUM 25 MG TABLET 1 TABLET ORALLY ONCE A DAY TAKING DICYCLOMINE HCL 20 MG TABLET 1 TABLET NEEDED ORALLY QID, NOTES: PRN TAKING JARDIANCE 10 MG TABLET 1 TABLET ORALLY ONCE A DAY TAKING POTASSIUM CHLORIDE 20 MEQ TABLET EXTENDED RELEASE 1 TABLET WITH FOOD ORALLY ONCE A DAY TAKING GABAPENTIN 300 MG CAPSULE 1 CAPSULE ORALLY BEFORE BEDTIME TAKING TIZANIDINE HCL 2 MG TABLET 1 TABLET NEEDED ORALLY EVERY 8 HRS TAKING CYMBALTA 60 MG CAPSULE DELAYED RELEASE PARTICLES 1 CAPSULE ORALLY BEFORE BEDTIME TAKING TRAZODONE HCL 100 MG TABLET 1/2 TABLET AT BEDTIME ORALLY ONCE A DAY TAKING SOMA 350 MG TABLET 1 TABLET NEEDED ORALLY FOR SPASMS AND PAIN EVERY 12 HOURS NEEDED MDD2 TAKING HUMIRA 20 MG/0.4ML PREFILLED SYRINGE KIT DIRECTED SUBCUTANEOUS , NOTES: 12/23/20 TAKING PERCOCET 5-325 MG TABLET 1 TABLET NEEDED ORALLY EVERY 6 HRS MDD4 TAKING PRILOSEC OTC 20 MG TABLET DELAYED RELEASE 1 TABLET 30 MINUTES BEFORE MORNING MEAL ORALLY ONCE A DAY NOT-TAKING PRILOSEC 40 MG CAPSULE DELAYED RELEASE 1/2 CAPSULE ORALLY ONCE A DAY NOT-TAKING PROBIOTIC 1 CAPSULE 1 CAP ORALLY DAILY NOT-TAKING COLCRYS 0.6 MG TABLET 1 TABLET PRN ORALLY ONCE A DAY NOT-TAKING PREDNISONE 5 MG TABLET 1 TABLET ORALLY ONCE A DAY NOT-TAKING COLESTIPOL HCL 1 GM TABLET 1 TABLET ORALLY BID, NOTES: 08/09/20201999 NOT-TAKING MELATONIN 5 MG TABLET 1 TABLET AT BEDTIME NEEDED WITH FOOD ORALLY ONCE A DAY, NOTES: PRN NOT-TAKING AMLODIPINE BESYLATE 2.5 MG TABLET 1 TABLET ORALLY ONCE A DAY NOT-TAKING POTASSIUM BICARB & CHLORIDE 20 MEQ PACKET 2 TABS ORALLY TWICE A DAY NOT-TAKING SPIRONOLACTONE 25 MG TABLET 1 TABLET ORALLY ONCE A DAY NOT-TAKING TOPIRAMATE 50 MG TABLET 1 TABLET ORALLY BEFORE BEDTIME NOT-TAKING PERCOCET 5-325 MG TABLET 1 TO 2 TAB ORALLY Q6H PRN MDD 4, NOTES: DUPLICATE NOT-TAKING ENTOCORT EC 3 MG CAPSULE DELAYED RELEASE PARTICLES DIRECTED ORALLY , NOTES: 2 WEEKS MEDICATION LIST REVIEWED AND RECONCILED WITH THE PATIENT PAST MEDICAL HISTORY DIABETES MIGRAINES PAF - INTERMITTENT A-FIB HTN GERD HIGH CHOLESTEROL GUILLAIN BARRE PNEUMONIA ILIEITIS A FIB WITH RVR DIVERTICULITIS BPH ED MULTIPLE GI PROBLEMS CHRON'S ALLERGIES SURGICAL GLUE: RASH, ITCHING - ALLERGY SOCIAL HISTORY GENERAL: TOBACCO USE ARE YOU A:NONSMOKER LATEX QUESTIONNAIRE LATEX ALLERGY : HAVE YOU EVER DEVELOPED ANY TYPE OF REACTION AFTER HANDLING LATEX PRODUCTS SUCH RUBBER GLOVES, CONDOMS, DIAPHRAGMS, BALLOONS, SOCKS, OR UNDERWEAR?NO LATEX ALLERGY : HAVE YOU EVER DEVELOPED ANY TYPE OF REACTION DURING OR AFTER DENTAL APPOINTMENT, VAGINAL/RECTAL EXAMINATION, SURGICAL PROCEDURE, OR ANY OTHER EXPOSURE?NO LATEX RISK : HAVE YOU EVER HAD ANY DIFFICULTY BREATHING OR HIVES AFTER EATING OR HANDLING ANY FRUITS, OR VEGETABLES; SUCH KIWI, BANANAS, STONE FRUITS, OR CHESTNUTSNO LATEX RISK : DO YOU HAVE A PREVIOUS PERSONAL HISTORY OF MORE THAN NINE SURGERIES, SPINA BIFIDA, OR REPEATED CATHERIZATIONS? NO LATEX RISK : ARE YOU FREQUENTLY EXPOSED TO LATEX PRODUCTS IN YOUR OCCUPATION?NO DATE ASKED : 11/30/2020 ALCOHOL USE: NO. ALCOHOL SCREENING DID YOU HAVE A DRINK CONTAINING ALCOHOL IN THE PAST YEAR?YES HOW OFTEN DID YOU HAVE SIX OR MORE DRINKS ON ONE OCCASION IN THE PAST YEAR?NEVER (0 POINTS) HOW MANY DRINKS DID YOU HAVE ON A TYPICAL DAY WHEN YOU WERE DRINKING IN THE PAST YEAR?1 OR 2 (0 POINTS) HOW OFTEN DID YOU HAVE A DRINK CONTAINING ALCOHOL IN THE PAST YEAR?MONTHLY OR LESS (1 POINT) POINTS1 INTERPRETATIONNEGATIVE RECREATIONAL DRUG USE DRUG USE?NO CAFFEINE CAFFEINE USE?YES 1-2 SODA/DAY SEXUAL HX HAD SEX IN THE LAST 12 MONTHS (VAGINAL, ORAL, OR ANAL)?NO HAVE YOU EVER HAD AN STD?NO UATSDIN UATSDIN NO BAHAI BELIEFS THAT WOULD IMPACT HEALTH CARE. 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 EXERCISE: WALKS. MARITAL STATUS: . OTHERS AT HOME: SPOUSE. - PFS REFERRAL NEEDED?NO CLERGY REFERRAL NEEDED?NO PUBLIC HEALTH REFERRAL NEEDED?NO WAS THE PROVIDER NOTIFIED OF ANY PERTINENT INFO?YES N/A HAS THE PATIENT BEEN EDUCATED REGARDING HIS/HER PLAN OF CARE?YES HAS THE PATIENT BEEN EDUCATED REGARDING PAIN, THE RISK FOR PAIN, THE IMPORTANCE OF EFFECTIVE PAIN MANAGEMENT, AND THE PAIN ASSESSMENT PROCESS?YES ADVANCE DIRECTIVE ADVANCE DIRECTIVE DISCUSSED WITH PATIENT:YES HCP ON FILE - , AUDREY DAIGLE [phone] VITAL SIGNS WT 168.4 LBS, HT 70 IN, BMI 24.16 INDEX, BP 170/100 MANUAUL, HR 66 /MIN, RR 18 /MIN, TEMP 98.6 F, OXYGEN SAT % 98%, BLOOD GLUCOSE LEVEL 103, NA INITIALS AW 1105, REVIEWED BY: SHERRY NURSE KNOW ABOUT BP. EXAMINATION GENERAL EXAMINATION: THE PATIENT IS ALERT, ORIENTED TIMES THREE AND COOPERATIVE. LUNGS ARE CLEAR TO AUSCULTATION. HEART SHOWS REGULAR RHYTHM, NO MURMURS AND NO GALLOPS. ASSESSMENTS SPONDYLOSIS OF LUMBOSACRAL REGION WITHOUT MYELOPATHY OR RADICULOPATHY - M47.817 TREATMENT SPONDYLOSIS OF LUMBOSACRAL REGION WITHOUT MYELOPATHY OR RADICULOPATHY [facility] FLUORO GUIDANCE (PAIN)[id number] COMPLETION OF PROCEDURAL VISIT WHEN MEETS CRITERIAALIREZA FULTON 12/26/2020 12:38:49 PM > CRITERIA MET OTHERS NOTES: PAT COMPLETED. 12/25/20 Lesly BONILLA RN. PROCEDURES PAIN NURSING RECORD PROCEDURE IN ROOM 1138, PHYSICIAN IN ROOM 1159, START 1204, FINISH 1215, PHYSICIAN OUT OF ROOM 1216, OUT OF ROOM 1225, ECG NORMAL SINUS, PATIENT SHIELDED YES, SAFETY STRAP YES, PREP CHLOROPREP BY ALYSSA, DRESSING TEGADERM BY DR ANTOINE LOC: 1. ALERT, ORIENTEDDONALDO TOM 12/26/2020 12:06:31 PM > RESP: 1. REGULAR, NO DYSPNEADONALDO TOM 12/26/2020 12:06:37 PM > COLOR: 1. PINKDONALDO TOM 12/26/2020 12:06:42 PM > SKIN: 1. WARM, DRYDONALDO TOM 12/26/2020 12:06:46 PM > POSITION: 1. PRONEDONALDO TOM 12/26/2020 12:06:51 PM > VITALS: ALIREZA FULTON 12/26/2020 11:56:46 AM > , HR 65, 167/91, 99%, R 16 DONALDO TOM 12/26/2020 12:08:32 PM > HR 67, 167/99, 97%, R 16, ALIREZA FULTON 12/26/2020 12:15:58 PM > HR 65, 161/90, 99%, R 16 EXIT VITALS DONALDO TOM 12/26/2020 12:36:23 PM > HR66, 139/94, 100%, R 16 NOTES Bharati FULTON RN COMPLETION OF PROCEDURE APPOINTMENT: POST PAIN 1 LOW BACK, DRESSING SITE DRY AND INTACT, IV N/A, GAIT STEADY, TEACHING COMPLETED, PATIENT ACKNOWLEDGES UNDERSTANDING YES, PROCEDURE APPOINTMENT COMPLETED AT 1236 PN LUMBAR FACET BLOCK DIAGNOSTIC PRE PROCEDURE DIAGNOSIS LUMBOSACRAL SPONDYLOSIS POST PROCEDURE DIAGNOSIS LUMBOSACRAL SPONDYLOSIS PROCEDURE BILATERAL L4-L5 FACET BLOCK DIAGNOSTIC NUMBER [address] BONY ANTOINE DEVELOPMENTAL PSYCHOLOGIST NONE ANESTHESIA LOCAL PRE PROCEDURE NOTE THE PATIENT WITH HISTORY OF CHRONIC LOW BACK PAIN. I EVALUATED THE PATIENT AND REVIEWED THE CHART. I WENT OVER THE RISKS, ALTERNATIVES, AND BENEFITS ASSOCIATED WITH THIS PROCEDURE. THE PATIENT WOULD LIKE TO PROCEED AND GAVE CONSENT TO PERFORM THE PROCEDURE. AGREED WITH THE PATIENT, WE ARE DOING THIS PROCEDURE TO DETERMINE IF THE PATIENT IS A CANDIDATE FOR A RADIOFREQUENCY ABLATION OF THE FACETS JOINTS. THE PATIENT DENIES UNEXPLAINABLE WEIGHT LOSS, FEVER, CHILLS, OR NEW CHANGES IN URINARY OR BOWEL CONTROL. PATIENT IS COVID-19 NEGATIVE. DESCRIPTION OF PROCEDURE THE PATIENT WAS BROUGHT TO THE PROCEDURE ROOM AND PLACED IN THE PRONE POSITION. THE LUMBOSACRAL AREA WAS CLEANED WITH CHLORAPREP SOLUTION AND DRAPED ASEPTICALLY. THE PROCEDURE WAS DONE UNDER STERILE CONDITIONS. A TIMEOUT WAS PERFORMED WHERE THE CONSENTED SITE WAS VERIFIED WITH EVERYONE IN THE ROOM. UNDER FLUOROSCOPIC GUIDANCE, TARGETS WERE SELECTED AT THE INTERSECTION OF THE RIGHT AND LEFT TRANSVERSE PROCESS OF L4 AND L5 WITH ITS RESPECTIVE SUPERIOR ARTICULAR PROCESS WITH A TARGET OF THE MEDIAN BRANCHES OF L3 AND L4. I CONFIRMED AGAIN THE SITE OF THE TARGET. LIDOCAINE WAS USED TO NUMB THE SKIN AND THE SUBCUTANEOUS TISSUE BELOW IT. SPINAL NEEDLE, 22-GAUGE, WAS ADVANCED UNDER FLUOROSCOPIC GUIDANCE AND FOLLOWING PATIENT FEEDBACK UNTIL THE TARGETS WERE REACHED. POSITION OF THE NEEDLES WAS VERIFIED WITH AP AND LATERAL VIEWS. AFTER PROPER POSITION OF THE NEEDLES WAS ACHIEVED, ISOVUE-M DYE 30%, 0.1 ML, WAS INJECTED AT EACH SITE SHOWING ADEQUATE SPREAD OF THE DYE. THEN, A SOLUTION OF 0.4 ML OF BUPIVACAINE 0.25% WAS INJECTED AT EACH SITE. THE MEDICATIONS WERE VERIFIED WITH THE NURSE. THERE WAS NO EVIDENCE OF BLOOD, PARESTHESIA OR CEREBROSPINAL FLUID DURING THE PROCEDURE. THE PATIENT WAS SENT TO THE RECOVERY ROOM. THE PATIENT WAS MOVING THE EXTREMITIES AND DOING WELL. THERE WERE NO COMPLICATIONS DURING THE PROCEDURE. ESTIMATED BLOOD LOSS WAS LESS THAN 5 ML. FLUOROSCOPY TIME WAS 1 MINUTE 23 SECONDS POST PROCEDURE NOTE THE PATIENT WILL DOCUMENT THE PAIN LEVEL AND RESPONSE TO THIS PROCEDURE PER PAIN DIARY. THE PATIENT WILL BE SEEN IN A FOLLOW UP IN THE NEXT FEW WEEKS. FURTHER DETERMINATION FOR THE PATIENT'S CASE WILL BE DONE AT THE NEXT VISIT. INSTRUCTIONS WERE GIVEN, QUESTIONS WERE ANSWERED, AND THE PATIENT EXPRESSED UNDERSTANDING AND AGREED WITH THE PLAN. I, SELAM VARELA, DOCUMENTED THE ABOVE INFORMATION ACTING A SCRIBE FOR DR. ANTOINE. I HAVE REVIEWED THE ABOVE DOCUMENT, WRITTEN BY SELAM VARELA, WOOD MILL SUPERVISOR, AND I VERIFY THAT IT IS ACCURATE PROCEDURE CODES 02165 INJ PARAVERT F JNT L/S 1 LEV, MODIFIERS: 50 DISPOSITION & COMMUNICATION FOLLOW UP FOLLOW UP WITH FIRER BISQUE KILN OR DR. Lucille SALAZAR (REASON: POST BILATERAL DIAGNOSTIC LUMBAR FACET BLOCK #1 L4-L5) ELECTRONICALLY SIGNED BY BONY ANTOINE MD, MD ON 01/02/2021 AT 02:49 PM EST DISCLAIMER : THIS IS A VISIT SUMMARY EXTRACTED FROM THE [employer] CHART. IT IS NOT A COPY OF THE [employer] PROGRESS NOTE. TERESA
== END ==
LOC: M PAIN 11:00
PROVIDERS: ATTEND Anesthesiology
DX: M47.817 Spondylosis without myelopathy or radiculopathy, lumbosacral region (principal); E11.9 Type 2 diabetes mellitus without complications; G43.909 Migraine, unspecified, not intractable, without status migrainosus; I10 Essential (primary) hypertension; K21.9 Gastro-esophageal reflux disease without esophagitis; E78.00 Pure hypercholesterolemia, unspecified; I48.91 Unspecified atrial fibrillation; N40.0 Benign prostatic hyperplasia without lower urinary tract symptoms; K50.90 Crohn's disease, unspecified, without complications; Z79.82 Long term (current) use of aspirin; Z79.891 Long term (current) use of opiate analgesic; Z79.899 Other long term (current) drug therapy; Z91.048 Other nonmedicinal substance allergy status
CPT/HCPCS: 64493; Q9967

== ENCOUNTER → 2021-01-03 | Outpatient (CLI) | payer OTHER ==
[~2021-01-03] MED LIST changes: -BUPIVACAINE HCL 0.25% 30ML VIAL As Ordered ONE; -ISOVUE-M 300 61% 15ML VIAL As Ordered ONE; -LIDOCAINE 1% SDV 30ML VIAL As Ordered ONE
== END ==
LOC: M LABSMTC 09:32
PROVIDERS: ATTEND Anesthesiology
DX: Z01.812 Encounter for preprocedural laboratory examination (principal); Z20.822 Contact with and (suspected) exposure to COVID-19

== ENCOUNTER → 2021-01-08 | Outpatient (CLI) | payer OTHER ==
[~2021-01-08] MED LIST changes: +ASPI-569 PO; -ASPI81TAEC PO; +BUPIVACAINE HCL 0.25% 30ML VIAL As Ordered ONE; +ISOVUE-M 300 61% 15ML VIAL As Ordered ONE; +LIDOCAINE 1% SDV 30ML VIAL As Ordered ONE; +NAPR-849 PO; -NAPR250T4 PO
--- NOTE | 2021-01-08 12:52 | REP ---
INDICATION: BILATERAL LUMBAR DIAGNOSTIC FACET BLOCK. COMPARISON: None. TECHNIQUE: Intraoperative fluoroscopic imaging using portable C-arm technique. FINDINGS: Catheters and contrast overlies the bilateral lumbar facet joints. Total fluoroscopic time 34.6 seconds. IMPRESSION: Status post bilateral lumbar facet block. <Electronically signed by Giovanni Key > 01/08/21 1248
--- NOTE | 2021-01-08 23:59 | ECWPNPC ---
PATIENT NAME: HAI DAIGLE : 1965 GENDER: MALE VISIT DATE: 01/08/2021 DISCHARGE DATE: 01/08/21 1217 VISIT LOCKED DATE TIME: PHYSICIAN: BONY ANTOINE MD RESOURCE: BONY ANTOINE MD REASON FOR APPOINTMENT 1. BILATERAL DIAGNOSTIC LUMBAR FACET BLOCK #1 L5-S1 HISTORY OF PRESENT ILLNESS GENERAL: 55-YEAR-OLD MALE PATIENT WITH A HISTORY OF CHRONIC LOW BACK PAIN. THE PATIENT DESCRIBES THE PAIN ACHING AND SEVERE WITH A PAIN SCORE RANGING FROM 8-10/10. IT IS IN THE LOWER BACK, LOWER THAN HE PREVIOUS DIAGNOSTIC TEST. FALL RISK SCREENING: SCREENING :NO FALLS REPORTED IN THE LAST YEAR PAIN SCREENING: PATIENT HAS A COMPLAINT OF ACUTE OR CHRONIC PAIN :YES LOCATION OF PAIN:LOW BACK, LEG(S) INTENSITY OF PAIN (SCALE OF 1 TO 10):8 WHAT DOES YOUR PAIN FEEL LIKE:ACHING, OTHER NUMBENESS/TINGLING DURATION:CONTINOUS, AWAKENS FROM SLEEP PAIN IS INCREASED BY:ACTIVITIES, PROLONGED STANDING PAIN IS DECREASED BY:USE OF PAIN MEDICATIONS TREATMENT/MEDICATIONS USED TO MANAGE PAIN:OPIOIDS PLAN/GOALS/TREATMENT/INTERVENTION/FOLLOW UP:SEE PLAN NURSING NOTE: -. PAIN CENTER INTAKE QUESTIONS: DO YOU HAVE A HISTORY OF MRSA? :NO DO YOU TAKE A BLOOD THINNERS? :NO DO YOU HAVE ANY BLEEDING DISORDERS? :NO ANY NEW NUMBNESS OR WEAKNESS IN YOUR LEGS OR ARMS? :NO ANY PACEMAKER,DEFIBRILLATOR, OR DORSAL COLUMN STIMULATOR? :NO DO YOU HAVE ANY RASHES OR OPEN SORES? :NO ARE YOU ALLERGIC TO IV DYE? :NO ARE YOU DIABETIC? :YES FSBS 101 ANY NEW PROBLEMS WITH YOUR MEDICATIONS? :NO HAVE YOU RECEIVED A VACCINE IN THE PAST 30 DAYS? :NO DO YOU PLAN TO RECEIVE A VACCINE IN THE NEXT 21 DAYS? :NO DO YOU TAKE ANY IMMUNOSUPPRESSIVE MEDICATIONS? :YES HUMIRA ANY HISTORY OF SEIZURES? :NO ANY HISTORY OF CARDIAC ISSUES OR EVENTS? :NO HX A-FIB DO YOU HAVE SLEEP APNEA? :NO ANY RECENT HEAD INJURY? :NO DO YOU HAVE ANY NEW INFECTIONS? :NO IS THERE A CHANCE YOU COULD BE ? :NO ARE YOU BREAST FEEDING? :NO WHEN DID YOU LAST EAT? : 0000 WHEN DID YOU LAST DRINK? : 0430 WHAT DID YOU LAST DRINK? : WATER NAME OF PERSON DRIVING YOU HOME? : MADDY OR LARA DO YOU HAVE ANY OTHER QUESTIONS OR CONCERNS? : -DENIES CURRENT MEDICATIONS TAKING ASPIR-81 81 MG TABLET DELAYED RELEASE 1 TABLET ORALLY EVERY OTHER DAY TAKING CITRACAL PLUS 400MG TABLET 2 TABS ORALLY AT BEDTIME TAKING FLECAINIDE ACETATE 50 MG TABLET 1 TABLET ORALLY EVERY 12 HRS, NOTES: 01/07/211999 TAKING VITAMIN D3 MAXIMUM STRENGTH 5000 UNIT CAPSULE 1 CAPSULE ORALLY DAILY TAKING VITAMIN B-12 500 MCG TABLET 1 TABLET ORALLY SUN, TUES, , SAT TAKING TRULICITY 0.75 MG/0.5ML SOLUTION PEN-INJECTOR SUBCUTANEOUS WEEKLY, NOTES: SATURDAYS- 01/06/21 TAKING METFORMIN HCL 1000 MG TABLET 1 TABLET WITH MEALS ORALLY TWICE DAILY, NOTES: 01/07/2199 TAKING MAGNESIUM 400 MG CAPSULE 1 CAP ORALLY BID TAKING BISOPROLOL FUMARATE 5 MG TABLET 1 TABLET ORALLY ONCE A DAY, NOTES: 01/07/2199 TAKING LIPITOR 10 MG TABLET 1 TABLET ORALLY ONCE A DAY TAKING MULTI FOR HIM TABLET 2 TABS ORALLY DAILY TAKING TAMSULOSIN HCL 0.4 MG CAPSULE 1 CAPSULE ONCE A DAY TAKING ZOFRAN 8 MG TABLET 1 TABLET ORALLY Q 8 HOURS NEEDED TAKING LOSARTAN POTASSIUM 25 MG TABLET 1 TABLET ORALLY ONCE A DAY, NOTES: 01/07/2199 TAKING DICYCLOMINE HCL 20 MG TABLET 1 TABLET NEEDED ORALLY QID, NOTES: PRN TAKING JARDIANCE 10 MG TABLET 1 TABLET ORALLY ONCE A DAY, NOTES: 01/07/2199 TAKING POTASSIUM CHLORIDE 20 MEQ TABLET EXTENDED RELEASE 1 TABLET WITH FOOD ORALLY ONCE A DAY TAKING GABAPENTIN 300 MG CAPSULE 1 CAPSULE ORALLY BEFORE BEDTIME, NOTES: 01/07/2199 TAKING TIZANIDINE HCL 2 MG TABLET 1 TABLET NEEDED ORALLY EVERY 8 HRS, NOTES: OVER A WEEK TAKING CYMBALTA 60 MG CAPSULE DELAYED RELEASE PARTICLES 1 CAPSULE ORALLY BEFORE BEDTIME TAKING TRAZODONE HCL 100 MG TABLET 1/2 TABLET AT BEDTIME ORALLY ONCE A DAY, NOTES: OVER A WEEK TAKING SOMA 350 MG TABLET 1 TABLET NEEDED ORALLY FOR SPASMS AND PAIN EVERY 12 HOURS NEEDED MDD2, NOTES: 01/07/211999 TAKING HUMIRA 20 MG/0.4ML PREFILLED SYRINGE KIT DIRECTED SUBCUTANEOUS , NOTES: 12/23/20 TAKING PRILOSEC OTC 20 MG TABLET DELAYED RELEASE 1 TABLET 30 MINUTES BEFORE MORNING MEAL ORALLY ONCE A DAY TAKING PERCOCET 5-325 MG TABLET 1 TABLET NEEDED ORALLY EVERY 6 HRS MDD4, NOTES: 01/06/21 NOT-TAKING PRILOSEC 40 MG CAPSULE DELAYED RELEASE 1/2 CAPSULE ORALLY ONCE A DAY NOT-TAKING PROBIOTIC 1 CAPSULE 1 CAP ORALLY DAILY NOT-TAKING COLCRYS 0.6 MG TABLET 1 TABLET PRN ORALLY ONCE A DAY NOT-TAKING PREDNISONE 5 MG TABLET 1 TABLET ORALLY ONCE A DAY NOT-TAKING COLESTIPOL HCL 1 GM TABLET 1 TABLET ORALLY BID, NOTES: 08/09/20201999 NOT-TAKING MELATONIN 5 MG TABLET 1 TABLET AT BEDTIME NEEDED WITH FOOD ORALLY ONCE A DAY, NOTES: PRN NOT-TAKING AMLODIPINE BESYLATE 2.5 MG TABLET 1 TABLET ORALLY ONCE A DAY NOT-TAKING POTASSIUM BICARB & CHLORIDE 20 MEQ PACKET 2 TABS ORALLY TWICE A DAY NOT-TAKING SPIRONOLACTONE 25 MG TABLET 1 TABLET ORALLY ONCE A DAY NOT-TAKING TOPIRAMATE 50 MG TABLET 1 TABLET ORALLY BEFORE BEDTIME NOT-TAKING PERCOCET 5-325 MG TABLET 1 TO 2 TAB ORALLY Q6H PRN MDD 4, NOTES: DUPLICATE NOT-TAKING ENTOCORT EC 3 MG CAPSULE DELAYED RELEASE PARTICLES DIRECTED ORALLY , NOTES: 2 WEEKS MEDICATION LIST REVIEWED AND RECONCILED WITH THE PATIENT PAST MEDICAL HISTORY DIABETES MIGRAINES PAF - INTERMITTENT A-FIB HTN GERD HIGH CHOLESTEROL GUILLAIN BARRE PNEUMONIA ILIEITIS A FIB WITH RVR DIVERTICULITIS BPH ED MULTIPLE GI PROBLEMS CHRON'S ALLERGIES SURGICAL GLUE: RASH, ITCHING - ALLERGY SOCIAL HISTORY GENERAL: TOBACCO USE ARE YOU A:NONSMOKER LATEX QUESTIONNAIRE LATEX ALLERGY : HAVE YOU EVER DEVELOPED ANY TYPE OF REACTION AFTER HANDLING LATEX PRODUCTS SUCH RUBBER GLOVES, CONDOMS, DIAPHRAGMS, BALLOONS, SOCKS, OR UNDERWEAR?NO LATEX ALLERGY : HAVE YOU EVER DEVELOPED ANY TYPE OF REACTION DURING OR AFTER DENTAL APPOINTMENT, VAGINAL/RECTAL EXAMINATION, SURGICAL PROCEDURE, OR ANY OTHER EXPOSURE?NO LATEX RISK : HAVE YOU EVER HAD ANY DIFFICULTY BREATHING OR HIVES AFTER EATING OR HANDLING ANY FRUITS, OR VEGETABLES; SUCH KIWI, BANANAS, STONE FRUITS, OR CHESTNUTSNO LATEX RISK : DO YOU HAVE A PREVIOUS PERSONAL HISTORY OF MORE THAN NINE SURGERIES, SPINA BIFIDA, OR REPEATED CATHERIZATIONS? NO LATEX RISK : ARE YOU FREQUENTLY EXPOSED TO LATEX PRODUCTS IN YOUR OCCUPATION?NO DATE ASKED : 01/05/2021 ALCOHOL USE: NO. ALCOHOL SCREENING DID YOU HAVE A DRINK CONTAINING ALCOHOL IN THE PAST YEAR?YES HOW OFTEN DID YOU HAVE SIX OR MORE DRINKS ON ONE OCCASION IN THE PAST YEAR?NEVER (0 POINTS) HOW MANY DRINKS DID YOU HAVE ON A TYPICAL DAY WHEN YOU WERE DRINKING IN THE PAST YEAR?1 OR 2 (0 POINTS) HOW OFTEN DID YOU HAVE A DRINK CONTAINING ALCOHOL IN THE PAST YEAR?MONTHLY OR LESS (1 POINT) POINTS1 INTERPRETATIONNEGATIVE RECREATIONAL DRUG USE DRUG USE?NO CAFFEINE CAFFEINE USE?YES 1-2 SODA/DAY SEXUAL HX HAD SEX IN THE LAST 12 MONTHS (VAGINAL, ORAL, OR ANAL)?NO HAVE YOU EVER HAD AN STD?NO ADVENTISM ADVENTISM NO YAZIDISM BELIEFS THAT WOULD IMPACT HEALTH CARE. 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 EXERCISE: WALKS. MARITAL STATUS: . OTHERS AT HOME: SPOUSE. - PFS REFERRAL NEEDED?NO CLERGY REFERRAL NEEDED?NO PUBLIC HEALTH REFERRAL NEEDED?NO WAS THE PROVIDER NOTIFIED OF ANY PERTINENT INFO?YES N/A HAS THE PATIENT BEEN EDUCATED REGARDING HIS/HER PLAN OF CARE?YES HAS THE PATIENT BEEN EDUCATED REGARDING PAIN, THE RISK FOR PAIN, THE IMPORTANCE OF EFFECTIVE PAIN MANAGEMENT, AND THE PAIN ASSESSMENT PROCESS?YES ADVANCE DIRECTIVE ADVANCE DIRECTIVE DISCUSSED WITH PATIENT:YES HCP ON FILE - , AUDREY DAIGLE [phone] HOSPITALIZATION/MAJOR DIAGNOSTIC PROCEDURE SURGERY RELATED GUILLAIN BARRE REQUIRING PLASMAPHERESIS, IVIG, STEROIDS AND INTUBATION [facility] 09/2015 PNEUMONIA, ILEITIS 02/2018 VITAL SIGNS WT 168.4 LBS, HT 70 IN, BMI 24.16 INDEX, BP 149/72 MM HG, HR 84 /MIN, RR 18 /MIN, TEMP 98.1 F, OXYGEN SAT % 100%, SAFE IN ENV? (Y/N) YES, NA INITIALS AW 1110, REVIEWED BY: APA. VAISHALI RN. EXAMINATION GENERAL EXAMINATION: THE PATIENT IS ALERT, ORIENTED TIMES THREE AND COOPERATIVE. LUNGS ARE CLEAR TO AUSCULTATION. HEART SHOWS REGULAR RHYTHM, NO MURMURS AND NO GALLOPS. TENDERNESS IN THE LOW BACK IN THE PARASPINAL MUSCLE GROUP. MRI OF THE LUMBAR SPINE DATED 05/04/2018 SHOWS LUMBAR FACET ARTHROPATHY. ASSESSMENTS SPONDYLOSIS OF LUMBOSACRAL REGION WITHOUT MYELOPATHY OR RADICULOPATHY - M47.817 TREATMENT SPONDYLOSIS OF LUMBOSACRAL REGION WITHOUT MYELOPATHY OR RADICULOPATHY [facility] FACET BLOCK (PAIN)[id number] COMPLETION OF PROCEDURAL VISIT WHEN MEETS CRITERIA CLINICAL NOTES: I DISCUSSED ALTERNATIVES WITH MR. DAIGLE. WE AGREE ON DOING A BILATERAL DIAGNOSTIC LUMBAR FACET BLOCK NUMBER 1 L5-S1. THE PATIENT REPORTS UNDERSTANDING AND AGREES WITH THE PLAN. I, SELAM VARELA, DOCUMENTED THE ABOVE INFORMATION ACTING A SCRIBE FOR DR. ANTOINE. I HAVE REVIEWED THE ABOVE DOCUMENT, WRITTEN BY SELAM VARELA, RURAL ELECTRIFICATION ENGINEER, AND I VERIFY THAT IT IS ACCURATE. OTHERS NOTES: 01/05/21 1420 PAT COMPLETED. JEANNE STITCH WELDER. PROCEDURES PAIN NURSING RECORD PROCEDURE IN ROOM 1140, PHYSICIAN IN ROOM 1152, START 1156, FINISH 1201, PHYSICIAN OUT OF ROOM 1202, OUT OF ROOM 1206, ECG NORMAL SINUS, PATIENT SHIELDED YES, SAFETY STRAP YES, PREP CHLOROPREP BY: Ale TOM RN, DRESSING TEGADERM BY: DR. ANTOINE LOC: PETRAS,SALVADOR R 01/08/2021 11:56:38 AM > 1. ALERT, ORIENTED RESP: PETRAS,SALVADOR R 01/08/2021 11:56:42 AM > 1. REGULAR, NO DYSPNEA COLOR: PETRAS,SALVADOR R 01/08/2021 11:56:45 AM > 1. PINK SKIN: PETRAS,SALVADOR R 01/08/2021 11:56:49 AM > 1. WARM, DRY POSITION: PETRAS,SALVADOR R 01/08/2021 11:56:54 AM > 1. PRONE VITALS: PETRAS,SALVADOR R 01/08/2021 11:44:19 AM > 171/89, 78, 18, 99% PETRAS,SALVADOR R 01/08/2021 11:58:13 AM > 156/102, 74, 18, 99% PETRAS,SALVADOR R 01/08/2021 12:04:05 PM > 165/95, 75, 16, 100% PETRAS,SALVADOR R 01/08/2021 12:11:56 PM > 151/80, 83, 18, 97% NOTES Ale TOM RN COMPLETION OF PROCEDURE APPOINTMENT: POST PAIN 0, DRESSING SITE DRY AND INTACT, IV N/A, GAIT STEADY, TEACHING COMPLETED, PATIENT ACKNOWLEDGES UNDERSTANDING YES, PROCEDURE APPOINTMENT COMPLETED AT 1217 BY: Ale TOM RN PN LUMBAR FACET BLOCK DIAGNOSTIC PRE PROCEDURE DIAGNOSIS LUMBOSACRAL SPONDYLOSIS POST PROCEDURE DIAGNOSIS LUMBOSACRAL SPONDYLOSIS PROCEDURE BILATERAL L5-S1 FACET BLOCK DIAGNOSTIC NUMBER [address] BONY ANTOINE TRANSACTION ADVISORY SERVICES MANAGER NONE ANESTHESIA LOCAL PRE PROCEDURE NOTE THE PATIENT WITH HISTORY OF CHRONIC LOW BACK PAIN. I EVALUATED THE PATIENT AND REVIEWED THE CHART. I WENT OVER THE RISKS, ALTERNATIVES, AND BENEFITS ASSOCIATED WITH THIS PROCEDURE. THE PATIENT WOULD LIKE TO PROCEED AND GAVE CONSENT TO PERFORM THE PROCEDURE. AGREED WITH THE PATIENT, WE ARE DOING THIS PROCEDURE TO DETERMINE IF THE PATIENT IS A CANDIDATE FOR A RADIOFREQUENCY ABLATION OF THE FACETS JOINTS. THE PATIENT DENIES UNEXPLAINABLE WEIGHT LOSS, FEVER, CHILLS, OR NEW CHANGES IN URINARY OR BOWEL CONTROL. THE PATIENT IS COVID-19 NEGATIVE DESCRIPTION OF PROCEDURE THE PATIENT WAS BROUGHT TO THE PROCEDURE ROOM AND PLACED IN THE PRONE POSITION. THE LUMBOSACRAL AREA WAS CLEANED WITH CHLORAPREP SOLUTION AND DRAPED ASEPTICALLY. THE PROCEDURE WAS DONE UNDER STERILE CONDITIONS. A TIMEOUT WAS PERFORMED WHERE THE CONSENTED SITE WAS VERIFIED WITH EVERYONE IN THE ROOM. UNDER FLUOROSCOPIC GUIDANCE, TARGETS WERE SELECTED AT THE INTERSECTION OF THE RIGHT AND LEFT TRANSVERSE PROCESS OF L5 AND ALA OF S1 WITH ITS RESPECTIVE SUPERIOR ARTICULAR PROCESS WITH A TARGET OF THE MEDIAN BRANCHES OF L4 AND THE DORSAL RAMI OF L5. I CONFIRMED AGAIN THE SITE OF TARGET. LIDOCAINE WAS USED TO NUMB THE SKIN AND THE SUBCUTANEOUS TISSUE BELOW IT. SPINAL NEEDLE, 22-GAUGE, WAS ADVANCED UNDER FLUOROSCOPIC GUIDANCE AND FOLLOWING PATIENT FEEDBACK UNTIL THE TARGETS WERE REACHED. POSITION OF THE NEEDLES WAS VERIFIED WITH AP AND LATERAL VIEWS. AFTER PROPER POSITION OF THE NEEDLES WAS ACHIEVED, ISOVUE-M DYE 30%, 0.1 ML, WAS INJECTED AT EACH SITE SHOWING ADEQUATE SPREAD OF THE DYE. THEN, A SOLUTION OF 0.4 ML OF BUPIVACAINE 0.25% WAS INJECTED AT EACH SITE. THE MEDICATIONS WERE VERIFIED WITH THE NURSE. THERE WAS NO EVIDENCE OF BLOOD, PARESTHESIA OR CEREBROSPINAL FLUID DURING THE PROCEDURE. THE PATIENT WAS SENT TO THE RECOVERY ROOM. THE PATIENT WAS MOVING THE EXTREMITIES AND DOING WELL. THERE WERE NO COMPLICATIONS DURING THE PROCEDURE. ESTIMATED BLOOD LOSS WAS LESS THAN 5 ML. FLUOROSCOPY TIME WAS 34 SECONDS POST PROCEDURE NOTE THE PATIENT WILL DOCUMENT THE PAIN LEVEL AND RESPONSE TO THIS PROCEDURE PER PAIN DIARY. THE PATIENT WILL BE SEEN IN A FOLLOW UP IN THE NEXT FEW WEEKS. FURTHER DETERMINATION FOR THE PATIENT'S CASE WILL BE DONE AT THE NEXT VISIT. INSTRUCTIONS WERE GIVEN, QUESTIONS WERE ANSWERED, AND THE PATIENT EXPRESSED UNDERSTANDING AND AGREED WITH THE PLAN. I, SELAM VARELA, DOCUMENTED THE ABOVE INFORMATION ACTING A SCRIBE FOR DR. ANTOINE. I HAVE REVIEWED THE ABOVE DOCUMENT, WRITTEN BY SELAM VARELA, RURAL ELECTRIFICATION ENGINEER, AND I VERIFY THAT IT IS ACCURATE PROCEDURE CODES 18678 INJ PARAVERT F JNT L/S 1 LEV, MODIFIERS: 50 DISPOSITION & COMMUNICATION FOLLOW UP FOLLOW UP WITH MATERIAL CREW SUPERVISOR (REASON: POST BILATERAL DIAGNOSTIC LUMBAR FACET BLOCK L5-S1) ELECTRONICALLY SIGNED BY BONY ANTOINE MD, ON 01/08/2021 AT 04:37 PM EST DISCLAIMER : THIS IS A VISIT SUMMARY EXTRACTED FROM THE [employer] CHART. IT IS NOT A COPY OF THE [employer] PROGRESS NOTE. TERESA
== END ==
LOC: M PAIN 11:00
PROVIDERS: ATTEND Anesthesiology
DX: M47.817 Spondylosis without myelopathy or radiculopathy, lumbosacral region (principal); G89.29 Other chronic pain; E11.9 Type 2 diabetes mellitus without complications; G43.909 Migraine, unspecified, not intractable, without status migrainosus; K21.9 Gastro-esophageal reflux disease without esophagitis; Z91.09 Other allergy status, other than to drugs and biological substances; Z79.82 Long term (current) use of aspirin; Z79.84 Long term (current) use of oral hypoglycemic drugs; Z79.899 Other long term (current) drug therapy
CPT/HCPCS: 64493; Q9967

== ENCOUNTER → 2021-01-09 | Outpatient (CLI) | payer OTHER ==
[~2021-01-09] MED LIST changes: -BUPIVACAINE HCL 0.25% 30ML VIAL As Ordered ONE; -ISOVUE-M 300 61% 15ML VIAL As Ordered ONE; -LIDOCAINE 1% SDV 30ML VIAL As Ordered ONE
--- NOTE | 2021-01-12 02:36 | ECWPNPC ---
PATIENT NAME: HAI DAIGLE : 1965 GENDER: MALE VISIT DATE: 01/09/2021 DISCHARGE DATE: 01/09/21 1009 VISIT LOCKED DATE TIME: PHYSICIAN: BRITT LANCASTER RESOURCE: BRITT LANCASTER REASON FOR APPOINTMENT 1. POST BILATERAL DIAGNOSTIC LUMBAR FACET BLOCK L4-5, L5-S1 #1-ORDER RF REQUIRES AUTH HISTORY OF PRESENT ILLNESS GENERAL: HERE FOR POST PROCEDURE FOLLOW-UP. HAD BILATERAL L4-5, L5-S1 LUMBAR FACET BLOCK DIAGNOSTIC YESTERDAY. HOURLY PAIN DIARY IS REVIEWED TODAY SHOWING GREATER THAN 80% REDUCTION IN PAIN FOR 6-8 HOURS POST PROCEDURE. PAIN HAS ABRUPTLY RETURNED TO BASELINE. DISCUSSED RADIOFREQUENCY. DR. ANTOINE WOULD LIKE TO DO RIGHT LUMBAR RADIOFREQUENCY L4-5, L5-S1. PATIENT WOULD LIKE TO MOVE FORWARD WITH THIS. -. FALL RISK SCREENING: SCREENING :NO FALLS REPORTED IN THE LAST YEAR PAIN SCREENING: PATIENT HAS A COMPLAINT OF ACUTE OR CHRONIC PAIN :YES LOCATION OF PAIN:LOW BACK INTENSITY OF PAIN (SCALE OF 1 TO 10):7 WHAT DOES YOUR PAIN FEEL LIKE:ACHING, TENDER, SORE, SHOOTING DURATION:CONTINOUS, CONSTANT, ALL DAY PAIN IS INCREASED BY:ACTIVITIES PAIN IS DECREASED BY:USE OF PAIN MEDICATIONS NURSING NOTE: -. PAIN CENTER INTAKE QUESTIONS: DO YOU HAVE A HISTORY OF MRSA? :NO DO YOU TAKE A BLOOD THINNERS? :NO 81 MG. ASPIRIN DO YOU HAVE ANY BLEEDING DISORDERS? :NO ANY NEW NUMBNESS OR WEAKNESS IN YOUR LEGS OR ARMS? :YES NUMBNESS IN LEGS ANY PACEMAKER,DEFIBRILLATOR, OR DORSAL COLUMN STIMULATOR? :NO DO YOU HAVE ANY RASHES OR OPEN SORES? :NO ARE YOU ALLERGIC TO IV DYE? :NO ARE YOU DIABETIC? :YES ANY NEW PROBLEMS WITH YOUR MEDICATIONS? :NO HAVE YOU RECEIVED A VACCINE IN THE PAST 30 DAYS? :YES IF SO WHAT VACCINE AND WHEN? SECOND COVID VACCINATION RECEIVED ON 12/05/2020 DO YOU PLAN TO RECEIVE A VACCINE IN THE NEXT 21 DAYS? :NO DO YOU NEED ANY PRESCRIPTION? :NO DO YOU TAKE ANY IMMUNOSUPPRESSIVE MEDICATIONS? :YES NAYELY IS THERE A CHANCE YOU COULD BE ? :NO ARE YOU BREAST FEEDING? :NO CURRENT MEDICATIONS TAKING ASPIR-81 81 MG TABLET DELAYED RELEASE 1 TABLET ORALLY EVERY OTHER DAY TAKING CITRACAL PLUS 400MG TABLET 2 TABS ORALLY AT BEDTIME TAKING FLECAINIDE ACETATE 50 MG TABLET 1 TABLET ORALLY EVERY 12 HRS TAKING VITAMIN D3 MAXIMUM STRENGTH 5000 UNIT CAPSULE 1 CAPSULE ORALLY DAILY TAKING VITAMIN B-12 500 MCG TABLET 1 TABLET ORALLY ELISABET, STEPHIE, RAMESH, SAT TAKING TRULICITY 0.75 MG/0.5ML SOLUTION PEN-INJECTOR SUBCUTANEOUS WEEKLY TAKING METFORMIN HCL 1000 MG TABLET 1 TABLET WITH MEALS ORALLY TWICE DAILY TAKING MAGNESIUM 400 MG CAPSULE 1 CAP ORALLY BID TAKING BISOPROLOL FUMARATE 5 MG TABLET 1 TABLET ORALLY ONCE A DAY TAKING LIPITOR 10 MG TABLET 1 TABLET ORALLY ONCE A DAY TAKING MULTI FOR HIM TABLET 2 TABS ORALLY DAILY TAKING TAMSULOSIN HCL 0.4 MG CAPSULE 1 CAPSULE ONCE A DAY TAKING ZOFRAN 8 MG TABLET 1 TABLET ORALLY Q 8 HOURS NEEDED TAKING LOSARTAN POTASSIUM 25 MG TABLET 1 TABLET ORALLY ONCE A DAY TAKING DICYCLOMINE HCL 20 MG TABLET 1 TABLET NEEDED ORALLY QID TAKING JARDIANCE 10 MG TABLET 1 TABLET ORALLY ONCE A DAY TAKING POTASSIUM CHLORIDE 20 MEQ TABLET EXTENDED RELEASE 1 TABLET WITH FOOD ORALLY ONCE A DAY TAKING GABAPENTIN 300 MG CAPSULE 1 CAPSULE ORALLY BEFORE BEDTIME TAKING TIZANIDINE HCL 2 MG TABLET 1 TABLET NEEDED ORALLY EVERY 8 HRS TAKING CYMBALTA 60 MG CAPSULE DELAYED RELEASE PARTICLES 1 CAPSULE ORALLY BEFORE BEDTIME TAKING TRAZODONE HCL 100 MG TABLET 1/2 TABLET AT BEDTIME ORALLY ONCE A DAY TAKING SOMA 350 MG TABLET 1 TABLET NEEDED ORALLY FOR SPASMS AND PAIN EVERY 12 HOURS NEEDED MDD2 TAKING HUMIRA 20 MG/0.4ML PREFILLED SYRINGE KIT DIRECTED SUBCUTANEOUS TAKING PRILOSEC OTC 20 MG TABLET DELAYED RELEASE 1 TABLET 30 MINUTES BEFORE MORNING MEAL ORALLY ONCE A DAY TAKING PERCOCET 5-325 MG TABLET 1 TABLET NEEDED ORALLY EVERY 6 HRS MDD4 NOT-TAKING PRILOSEC 40 MG CAPSULE DELAYED RELEASE 1/2 CAPSULE ORALLY ONCE A DAY NOT-TAKING PROBIOTIC 1 CAPSULE 1 CAP ORALLY DAILY NOT-TAKING COLCRYS 0.6 MG TABLET 1 TABLET PRN ORALLY ONCE A DAY NOT-TAKING PREDNISONE 5 MG TABLET 1 TABLET ORALLY ONCE A DAY NOT-TAKING COLESTIPOL HCL 1 GM TABLET 1 TABLET ORALLY BID, NOTES: 08/09/20201999 NOT-TAKING MELATONIN 5 MG TABLET 1 TABLET AT BEDTIME NEEDED WITH FOOD ORALLY ONCE A DAY, NOTES: PRN NOT-TAKING AMLODIPINE BESYLATE 2.5 MG TABLET 1 TABLET ORALLY ONCE A DAY NOT-TAKING POTASSIUM BICARB & CHLORIDE 20 MEQ PACKET 2 TABS ORALLY TWICE A DAY NOT-TAKING SPIRONOLACTONE 25 MG TABLET 1 TABLET ORALLY ONCE A DAY NOT-TAKING TOPIRAMATE 50 MG TABLET 1 TABLET ORALLY BEFORE BEDTIME NOT-TAKING PERCOCET 5-325 MG TABLET 1 TO 2 TAB ORALLY Q6H PRN MDD 4, NOTES: DUPLICATE NOT-TAKING ENTOCORT EC 3 MG CAPSULE DELAYED RELEASE PARTICLES DIRECTED ORALLY , NOTES: 2 WEEKS MEDICATION LIST REVIEWED AND RECONCILED WITH THE PATIENT PAST MEDICAL HISTORY DIABETES MIGRAINES PAF - INTERMITTENT A-FIB HTN GERD HIGH CHOLESTEROL GUILLAIN BARRE PNEUMONIA ILIEITIS A FIB WITH RVR DIVERTICULITIS BPH ED MULTIPLE GI PROBLEMS CHRON'S ALLERGIES SURGICAL GLUE: RASH, ITCHING - ALLERGY SOCIAL HISTORY GENERAL: TOBACCO USE ARE YOU A:NONSMOKER LATEX QUESTIONNAIRE LATEX ALLERGY : HAVE YOU EVER DEVELOPED ANY TYPE OF REACTION AFTER HANDLING LATEX PRODUCTS SUCH RUBBER GLOVES, CONDOMS, DIAPHRAGMS, BALLOONS, SOCKS, OR UNDERWEAR?NO LATEX ALLERGY : HAVE YOU EVER DEVELOPED ANY TYPE OF REACTION DURING OR AFTER DENTAL APPOINTMENT, VAGINAL/RECTAL EXAMINATION, SURGICAL PROCEDURE, OR ANY OTHER EXPOSURE?NO LATEX RISK : HAVE YOU EVER HAD ANY DIFFICULTY BREATHING OR HIVES AFTER EATING OR HANDLING ANY FRUITS, OR VEGETABLES; SUCH KIWI, BANANAS, STONE FRUITS, OR CHESTNUTSNO LATEX RISK : DO YOU HAVE A PREVIOUS PERSONAL HISTORY OF MORE THAN NINE SURGERIES, SPINA BIFIDA, OR REPEATED CATHERIZATIONS? NO LATEX RISK : ARE YOU FREQUENTLY EXPOSED TO LATEX PRODUCTS IN YOUR OCCUPATION?NO DATE ASKED : 01/09/2021 ALCOHOL USE: NO. ALCOHOL SCREENING DID YOU HAVE A DRINK CONTAINING ALCOHOL IN THE PAST YEAR?YES HOW OFTEN DID YOU HAVE SIX OR MORE DRINKS ON ONE OCCASION IN THE PAST YEAR?NEVER (0 POINTS) HOW MANY DRINKS DID YOU HAVE ON A TYPICAL DAY WHEN YOU WERE DRINKING IN THE PAST YEAR?1 OR 2 (0 POINTS) HOW OFTEN DID YOU HAVE A DRINK CONTAINING ALCOHOL IN THE PAST YEAR?MONTHLY OR LESS (1 POINT) POINTS1 INTERPRETATIONNEGATIVE RECREATIONAL DRUG USE DRUG USE?NO CAFFEINE CAFFEINE USE?YES 1-2 SODA/DAY SEXUAL HX HAD SEX IN THE LAST 12 MONTHS (VAGINAL, ORAL, OR ANAL)?NO HAVE YOU EVER HAD AN STD?NO MU-ISM MU-ISM NO HOLINESS BELIEFS THAT WOULD IMPACT HEALTH CARE. LANGUAGE LANGUAGES SPOKEN:[place] EDUCATION LEVEL OF EDUCATION:FINISHED HIGH SCHOOL LEARNING BARRIERS / SPECIAL NEEDS CHANGE FROM LAST VISIT?NO BARRIERS TO LEARNING?NO HEARING IMPAIRED?NO VISION IMPAIRED?YES COGNITIVELY IMPAIRED?NO :CORRECTIVE LENSES READINESS TO LEARN?YES LEARNING PREFERENCES?NO LEARNING CAPABILITIES PRESENT?YES EMOTIONAL BARRIERS?NO SPECIAL DEVICES?NO TELEVISION INSTALLER HELPER NEEDED?NO OCCUPATION: [employer]. 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 EXERCISE: WALKS. MARITAL STATUS: . OTHERS AT HOME: SPOUSE. - PFS REFERRAL NEEDED?NO CLERGY REFERRAL NEEDED?NO PUBLIC HEALTH REFERRAL NEEDED?NO WAS THE PROVIDER NOTIFIED OF ANY PERTINENT INFO?YES N/A HAS THE PATIENT BEEN EDUCATED REGARDING HIS/HER PLAN OF CARE?YES HAS THE PATIENT BEEN EDUCATED REGARDING PAIN, THE RISK FOR PAIN, THE IMPORTANCE OF EFFECTIVE PAIN MANAGEMENT, AND THE PAIN ASSESSMENT PROCESS?YES ADVANCE DIRECTIVE ADVANCE DIRECTIVE DISCUSSED WITH PATIENT:YES HCP ON FILE - , AUDREY DAIGLE [phone] REVIEW OF SYSTEMS CONSTITUTIONAL: ANY RECENT FEVER NO . CHILLS NO . WEIGHT CHANGE OF UNKNOWN REASONS NO . GASTROENTEROLOGY: NEW UNEXPLAINABLE CHANGES IN BOWEL CONTROL NO . CONSTIPATION NO . GENITOURINARY: ANY NEW CHANGE IN BLADDER CONTROL? NO . NEUROLOGY: NEW ONSET DIZZINESS OR NEUROLOGICAL CHANGES NOT MENTIONED NO . NEW NUMBNESS OR PAIN PATTERNS NOT MENTIONED AND PERTINENT TO TODAY'S VISIT NO . CARDIOLOGY: NEW CHEST PRESSURE NO . PATIENT DENIES NO . RESPIRATORY: UNEXPLAINABLE COUGH NO . NEW SHORTNESS OF BREATH NO . VITAL SIGNS WT 171 LBS, HT 70 IN, BMI 24.53 INDEX, BP 163/88 MM HG, HR 82 /MIN, RR 18 /MIN, TEMP 95.7 F, OXYGEN SAT % 100%, SAFE IN ENV? (Y/N) YEST.QUINN CLARK. EXAMINATION GENERAL EXAMINATION: GENERALAWAKE,ALERT ,PLEAASANT . PSYCHAFFECT NORMAL . LUNGS:LUNG VALLADARES ARE CLEAR TO AUSCULTATION BILATERALLY. GOOD MOVEMENT OF AIR . HEART:S1, S2 IN A REGULAR RATE AND RHYTHM. NO SIGNIFICANT MURMURS, RUBS OR GALLOPS NOTED . LUMBAR:PALPATION: + FOR PAIN OVER L/S SPINE. + FOR PAIN OVER L/S PARASPINALS .SPECIFIC POINT TENDERNESS OVER BILAT L4/5-L5/S1 LUMBAR FACETS WITH FACET LOADING. NEUROLOGIC EXAM:NORMAL SENSATION LIGHT TOUCH BILAT. LOWER EXTREMITIES . ASSESSMENTS SPONDYLOSIS OF LUMBAR REGION WITHOUT MYELOPATHY OR RADICULOPATHY - M47.816 (PRIMARY) CHRONIC PRESCRIPTION OPIATE USE - Z79.891 TREATMENT SPONDYLOSIS OF LUMBAR REGION WITHOUT MYELOPATHY OR RADICULOPATHY PAIN PROCEDURE LOGDATE OF PROCEDURE1PROCEDURE:BILATERAL DIAGNOSTIC LUMBAR FACET BLOCK #1 [id number] OF PRE SEDATENO PRESEDATERESULT:MARKED REDUCTION IN PAIN FOR 6-8 HOURS POSTPROCEDURE THEN PAIN RETURNED TO BASELINE MEDICATION: VALIUM TAB 5MG ORALLY (DIAZEPAM) (ORDERED FOR 01/18/2021) MEDICATION: OXYCODONE HCL TAB 5MG ORALLY (ORDERED FOR 01/18/2021) NOTES: RIGHT LUMBAR COOL RADIOFREQUENCY L4-5,L5-S1. CHRONIC PRESCRIPTION OPIATE USE LAB: URINE TEST GROUP ZOHREH BALL 01/09/2021 10:05:24 AM > LAST DOSE: GABAPENTINE-01/08/2021, PERCOCET-01/05/2021, SOMA-01/05/2021 NOTES: PRINTED AND REVIEWED PRE PROCEDURE WITH PATIENT BharatiQUINN CLARK. PROCEDURE CODES FA211 ESTABILISHED PATIENT [facility] CHARGE DISPOSITION & COMMUNICATION FOLLOW UP POST PROCEDURE (REASON: RIGHT LUMBAR COOL RADIOFREQUENCY L4-5,L5-S1) ELECTRONICALLY SIGNED BY MARTÍN GOLDBERG ON 01/11/2021 AT 10:45 AM EST DISCLAIMER : THIS IS A VISIT SUMMARY EXTRACTED FROM THE [facility] CHART. IT IS NOT A COPY OF THE [facility] PROGRESS NOTE. TERESA
== END ==
LOC: M PAIN 09:15
PROVIDERS: ATTEND Nurse Practitioner Family
DX: M47.816 Spondylosis without myelopathy or radiculopathy, lumbar region (principal); E11.9 Type 2 diabetes mellitus without complications; G43.909 Migraine, unspecified, not intractable, without status migrainosus; K21.9 Gastro-esophageal reflux disease without esophagitis; Z91.09 Other allergy status, other than to drugs and biological substances; Z79.82 Long term (current) use of aspirin; Z79.84 Long term (current) use of oral hypoglycemic drugs; Z79.899 Other long term (current) drug therapy

== ENCOUNTER → 2021-01-10 | Outpatient (CLI) | payer OTHER | LOC: M LABSMTC 10:09 | PROVIDERS: ATTEND Anesthesiology | DX: Z01.812 Encounter for preprocedural laboratory examination (principal); Z20.822 Contact with and (suspected) exposure to COVID-19 ==

== ENCOUNTER → 2021-01-15 | Outpatient (CLI) | payer OTHER ==
[~2021-01-15] MED LIST changes: +BUPIVACAINE HCL 0.25% 30ML VIAL As Ordered ONE; +LIDOCAINE 1% SDV 30ML VIAL As Ordered ONE; +dexameTHASONE 10MG/1ML VIAL PRES.FREE (J1100 PER 1MG) As Ordered ONE; +diazePAM 5MG TABLET As Ordered ONE; +oxyCODONE 5MG TAB As Ordered ONE
--- NOTE | 2021-01-15 16:37 | REP ---
INDICATION: RADIO FREQUENCY, COOL L4-L5, L5-S1. COMPARISON: None. TECHNIQUE: Intraoperative fluoroscopic imaging using portable C-arm technique. FINDINGS: Images demonstrate catheter overlying lumbar facet joints. Total fluoroscopic time 127 seconds. IMPRESSION: Findings consistent with facet block. <Electronically signed by Giovanni Key > 01/15/21 [id number]
--- NOTE | 2021-01-18 02:07 | ECWPNPC ---
PATIENT NAME: HAI DAIGLE : 1965 GENDER: MALE VISIT DATE: 01/15/2021 DISCHARGE DATE: 01/15/21 161 VISIT LOCKED DATE TIME: PHYSICIAN: BONY ANTOINE MD RESOURCE: BONY ANTOINE MD REASON FOR APPOINTMENT 1. RIGHT LUMBAR COOL RADIOFREQUENCY L4-L5, L5-S1 HISTORY OF PRESENT ILLNESS GENERAL: -. FALL RISK SCREENING: SCREENING : NO FALLS REPORTED IN THE LAST YEAR. PAIN SCREENING: PATIENT HAS A COMPLAINT OF ACUTE OR CHRONIC PAIN :YES LOCATION OF PAIN:LOW BACK, LEFT HIP, RIGHT HIP INTENSITY OF PAIN (SCALE OF 1 TO 10):8 WHAT DOES YOUR PAIN FEEL LIKE:CONTINOUS, SHARP, STABBING, SHOOTING DURATION:CONSTANT NURSING NOTE: -. PAIN CENTER INTAKE QUESTIONS: DO YOU HAVE A HISTORY OF MRSA? :NO DO YOU TAKE A BLOOD THINNERS? :NO DO YOU HAVE ANY BLEEDING DISORDERS? :NO ANY NEW NUMBNESS OR WEAKNESS IN YOUR LEGS OR ARMS? :NO ANY PACEMAKER,DEFIBRILLATOR, OR DORSAL COLUMN STIMULATOR? :NO DO YOU HAVE ANY RASHES OR OPEN SORES? :NO ARE YOU ALLERGIC TO IV DYE? :NO ARE YOU DIABETIC? :YES ANY NEW PROBLEMS WITH YOUR MEDICATIONS? :NO HAVE YOU RECEIVED A VACCINE IN THE PAST 30 DAYS? :NO DO YOU PLAN TO RECEIVE A VACCINE IN THE NEXT 21 DAYS? :NO DO YOU TAKE ANY IMMUNOSUPPRESSIVE MEDICATIONS? :YES HUMIRA. ON HOLD (> 2 WEEKS). ANY HISTORY OF SEIZURES? :NO ANY HISTORY OF CARDIAC ISSUES OR EVENTS? :NO DO YOU HAVE ANY KIDNEY OR LIVER DISEASE? :NO DO YOU HAVE SLEEP APNEA? :NO ANY RECENT HEAD INJURY? :NO DO YOU HAVE ANY NEW INFECTIONS? :NO IS THERE A CHANCE YOU COULD BE ? :NO ARE YOU BREAST FEEDING? :NO WHEN DID YOU LAST EAT? : 01/15/21399 WHEN DID YOU LAST DRINK? : 01/15/21399 WHAT DID YOU LAST DRINK? : WATER NAME OF PERSON DRIVING YOU HOME? : -NEIL DO YOU HAVE ANY OTHER QUESTIONS OR CONCERNS? : -DENIES CURRENT MEDICATIONS TAKING ASPIR-81 81 MG TABLET DELAYED RELEASE 1 TABLET ORALLY EVERY OTHER DAY TAKING CITRACAL PLUS 400MG TABLET 2 TABS ORALLY AT BEDTIME TAKING FLECAINIDE ACETATE 50 MG TABLET 1 TABLET ORALLY EVERY 12 HRS TAKING VITAMIN D3 MAXIMUM STRENGTH 5000 UNIT CAPSULE 1 CAPSULE ORALLY DAILY TAKING VITAMIN B-12 500 MCG TABLET 1 TABLET ORALLY SUN, TUES, THURS, SAT TAKING TRULICITY 0.75 MG/0.5ML SOLUTION PEN-INJECTOR SUBCUTANEOUS WEEKLY, NOTES: 01/13/21 TAKING METFORMIN HCL 1000 MG TABLET 1 TABLET WITH MEALS ORALLY TWICE DAILY, NOTES: 01/14/21 TAKING MAGNESIUM 400 MG CAPSULE 1 CAP ORALLY BID TAKING BISOPROLOL FUMARATE 5 MG TABLET 1 TABLET ORALLY ONCE A DAY, NOTES: 01/14/21 TAKING LIPITOR 10 MG TABLET 1 TABLET ORALLY ONCE A DAY TAKING MULTI FOR HIM TABLET 2 TABS ORALLY DAILY TAKING TAMSULOSIN HCL 0.4 MG CAPSULE 1 CAPSULE ONCE A DAY TAKING ZOFRAN 8 MG TABLET 1 TABLET ORALLY Q 8 HOURS NEEDED TAKING LOSARTAN POTASSIUM 25 MG TABLET 1 TABLET ORALLY ONCE A DAY TAKING DICYCLOMINE HCL 20 MG TABLET 1 TABLET NEEDED ORALLY QID TAKING JARDIANCE 10 MG TABLET 1 TABLET ORALLY ONCE A DAY, NOTES: 01/14/21 TAKING POTASSIUM CHLORIDE 20 MEQ TABLET EXTENDED RELEASE 1 TABLET WITH FOOD ORALLY ONCE A DAY TAKING GABAPENTIN 300 MG CAPSULE 1 CAPSULE ORALLY BEFORE BEDTIME TAKING TIZANIDINE HCL 2 MG TABLET 1 TABLET NEEDED ORALLY EVERY 8 HRS TAKING CYMBALTA 60 MG CAPSULE DELAYED RELEASE PARTICLES 1 CAPSULE ORALLY BEFORE BEDTIME TAKING TRAZODONE HCL 100 MG TABLET 1/2 TABLET AT BEDTIME ORALLY ONCE A DAY TAKING SOMA 350 MG TABLET 1 TABLET NEEDED ORALLY FOR SPASMS AND PAIN EVERY 12 HOURS NEEDED MDD2, NOTES: 01/14/21 170 TAKING HUMIRA 20 MG/0.4ML PREFILLED SYRINGE KIT DIRECTED SUBCUTANEOUS , NOTES: 2 WEEKS AGO TAKING PRILOSEC OTC 20 MG TABLET DELAYED RELEASE 1 TABLET 30 MINUTES BEFORE MORNING MEAL ORALLY ONCE A DAY TAKING PERCOCET 5-325 MG TABLET 1 TABLET NEEDED ORALLY EVERY 6 HRS MDD4, NOTES: 01/14/21 170 TAKING AMLODIPINE BESYLATE 2.5 MG TABLET 1 TABLET ORALLY ONCE A DAY, NOTES: 01/14/211699 NOT-TAKING PRILOSEC 40 MG CAPSULE DELAYED RELEASE 1/2 CAPSULE ORALLY ONCE A DAY NOT-TAKING PROBIOTIC 1 CAPSULE 1 CAP ORALLY DAILY NOT-TAKING COLCRYS 0.6 MG TABLET 1 TABLET PRN ORALLY ONCE A DAY NOT-TAKING PREDNISONE 5 MG TABLET 1 TABLET ORALLY ONCE A DAY NOT-TAKING COLESTIPOL HCL 1 GM TABLET 1 TABLET ORALLY BID, NOTES: 08/09/20201999 NOT-TAKING MELATONIN 5 MG TABLET 1 TABLET AT BEDTIME NEEDED WITH FOOD ORALLY ONCE A DAY, NOTES: PRN NOT-TAKING POTASSIUM BICARB & CHLORIDE 20 MEQ PACKET 2 TABS ORALLY TWICE A DAY NOT-TAKING SPIRONOLACTONE 25 MG TABLET 1 TABLET ORALLY ONCE A DAY NOT-TAKING TOPIRAMATE 50 MG TABLET 1 TABLET ORALLY BEFORE BEDTIME NOT-TAKING PERCOCET 5-325 MG TABLET 1 TO 2 TAB ORALLY Q6H PRN MDD 4, NOTES: DUPLICATE NOT-TAKING ENTOCORT EC 3 MG CAPSULE DELAYED RELEASE PARTICLES DIRECTED ORALLY , NOTES: 2 WEEKS MEDICATION LIST REVIEWED AND RECONCILED WITH THE PATIENT PAST MEDICAL HISTORY DIABETES MIGRAINES PAF - INTERMITTENT A-FIB HTN GERD HIGH CHOLESTEROL GUILLAIN BARRE PNEUMONIA ILIEITIS A FIB WITH RVR DIVERTICULITIS BPH ED MULTIPLE GI PROBLEMS CHRON'S ALLERGIES SURGICAL GLUE: RASH, ITCHING - ALLERGY SOCIAL HISTORY GENERAL: TOBACCO USE ARE YOU A:NONSMOKER LATEX QUESTIONNAIRE LATEX ALLERGY : HAVE YOU EVER DEVELOPED ANY TYPE OF REACTION AFTER HANDLING LATEX PRODUCTS SUCH RUBBER GLOVES, CONDOMS, DIAPHRAGMS, BALLOONS, SOCKS, OR UNDERWEAR?NO LATEX ALLERGY : HAVE YOU EVER DEVELOPED ANY TYPE OF REACTION DURING OR AFTER DENTAL APPOINTMENT, VAGINAL/RECTAL EXAMINATION, SURGICAL PROCEDURE, OR ANY OTHER EXPOSURE?NO LATEX RISK : HAVE YOU EVER HAD ANY DIFFICULTY BREATHING OR HIVES AFTER EATING OR HANDLING ANY FRUITS, OR VEGETABLES; SUCH KIWI, BANANAS, STONE FRUITS, OR CHESTNUTSNO LATEX RISK : DO YOU HAVE A PREVIOUS PERSONAL HISTORY OF MORE THAN NINE SURGERIES, SPINA BIFIDA, OR REPEATED CATHERIZATIONS? NO LATEX RISK : ARE YOU FREQUENTLY EXPOSED TO LATEX PRODUCTS IN YOUR OCCUPATION?NO DATE ASKED : 01/15/2021 ALCOHOL USE: NO. ALCOHOL SCREENING DID YOU HAVE A DRINK CONTAINING ALCOHOL IN THE PAST YEAR?YES HOW OFTEN DID YOU HAVE SIX OR MORE DRINKS ON ONE OCCASION IN THE PAST YEAR?NEVER (0 POINTS) HOW MANY DRINKS DID YOU HAVE ON A TYPICAL DAY WHEN YOU WERE DRINKING IN THE PAST YEAR?1 OR 2 (0 POINTS) HOW OFTEN DID YOU HAVE A DRINK CONTAINING ALCOHOL IN THE PAST YEAR?MONTHLY OR LESS (1 POINT) POINTS1 INTERPRETATIONNEGATIVE RECREATIONAL DRUG USE DRUG USE?NO CAFFEINE CAFFEINE USE?YES 1-2 SODA/DAY SEXUAL HX HAD SEX IN THE LAST 12 MONTHS (VAGINAL, ORAL, OR ANAL)?NO HAVE YOU EVER HAD AN STD?NO PENTECOSTALISM PENTECOSTALISM NO VOODOO BELIEFS THAT WOULD IMPACT HEALTH CARE. 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 EXERCISE: WALKS. MARITAL STATUS: . OTHERS AT HOME: SPOUSE. - PFS REFERRAL NEEDED?NO CLERGY REFERRAL NEEDED?NO PUBLIC HEALTH REFERRAL NEEDED?NO WAS THE PROVIDER NOTIFIED OF ANY PERTINENT INFO?YES N/A HAS THE PATIENT BEEN EDUCATED REGARDING HIS/HER PLAN OF CARE?YES HAS THE PATIENT BEEN EDUCATED REGARDING PAIN, THE RISK FOR PAIN, THE IMPORTANCE OF EFFECTIVE PAIN MANAGEMENT, AND THE PAIN ASSESSMENT PROCESS?YES ADVANCE DIRECTIVE ADVANCE DIRECTIVE DISCUSSED WITH PATIENT:YES HCP ON FILE - , AUDREY DAIGLE [phone] VITAL SIGNS WT 171.8 LBS, HT 70 IN, BMI 24.65 INDEX, BP 157/84 MM HG, HR 76 /MIN, RR 18 /MIN, TEMP 97.0 F, OXYGEN SAT % 97%, BLOOD GLUCOSE LEVEL 106, SAFE IN ENV? (Y/N) YES, NA INITIALS RI 13:57, REVIEWED BY: Micah WHITLEY RN BSN. EXAMINATION GENERAL EXAMINATION: A HISTORY AND PHYSICAL EXAM ON THE PATIENT WAS DONE ON 01/09/2021 (DATE OF ORIGINAL ASSESSMENT) IN PREPARATION OF SURGERY/PROCEDURE. I HAVE NOW REASSESSED THIS PATIENT'S HEALTH STATUS AND PERFORMED AN UPDATED EXAM TODAY. ALL CHANGES IN THE PATIENT'S HISTORY, PHYSICAL EXAM, PRE-EXISTING CONDITONS, AND INDICATIONS/CONTRAINDICATIONS TO THE PLANNED PROCEDURE AND ANESTHESIA ARE DOCUMENTED AND EVALUATED BELOW. I ATTEST TO THE ADEQUACY AND APPROPRIATENESS OF MY ASSESSMENT, AND CONFIRM THE NECESSITY FOR THE PLANNED PROCEDURE. THE PATIENT IS ALERT, ORIENTED TIMES THREE AND COOPERATIVE. LUNGS ARE CLEAR TO AUSCULTATION. HEART SHOWS REGULAR RHYTHM, NO MURMURS AND NO GALLOPS. ASSESSMENTS SPONDYLOSIS OF LUMBAR REGION WITHOUT MYELOPATHY OR RADICULOPATHY - M47.816 (PRIMARY) SPONDYLOSIS WITHOUT MYELOPATHY OR RADICULOPATHY, LUMBAR REGION - M47.816 TREATMENT SPONDYLOSIS OF LUMBAR REGION WITHOUT MYELOPATHY OR RADICULOPATHY COMPLETION OF PROCEDURAL VISIT WHEN MEETS CRITERIA MEDICATION: VALIUM TAB 5MG ORALLY (DIAZEPAM)ANGELO TORRES 01/15/2021 2:19:42 PM > VERIFIED JULIET WHITLEY 01/15/2021 2:22:43 PM > ADMINISTERED AT 1422. MEDICATION: OXYCODONE HCL TAB 5MG ORALLY ANGELO TORRES 01/15/2021 2:19:20 PM > VERIFIED JULIET WHITLEY 01/15/2021 2:22:57 PM > ADMINISTERED AT 1422. 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 ANTOINE LOC: DEBBIE WHITLEYISSA 01/15/2021 2:52:23 PM > 1. ALERT, ORIENTED, LOC REMAINED AT BASELINE THROUGHOUT THE PROCEDURE RESP: GUTIERREZJULIET 01/15/2021 2:52:23 PM > 1. REGULAR, NO DYSPNEA COLOR: GUTIERREZJULIET 01/15/2021 2:52:23 PM > 1. PINK SKIN: GUTIERREZJULIET 01/15/2021 2:52:23 PM > 1. WARM, DRY POSITION: GUTIERREZJULIET 01/15/2021 2:52:23 PM > 1. PRONE VITALS: JULIET WHITLEY 01/15/2021 2:58:24 PM > 140/83, 69, 97% RA. JULIET WHITLEY 01/15/2021 3:00:15 PM > 133/81, 74, 96% RA. JULIET WHITLEY 01/15/2021 3:13:36 PM > 131/80, 76, 96% RA. JULIET WHITLEY 01/15/2021 3:29:03 PM > 137/83, 73, 96% RA. JULIET WHITLEY 01/15/2021 3:42:22 PM > 159/86, 80, 96% RA. JULIET WHITLEY 01/15/2021 3:58:11 PM > 129/77, 70, 94% RA. JULIET WHITLEY 01/15/2021 4:13:19 PM > 143/80, 71, 93% RA. JULIET WHITLEY 01/15/2021 4:27:59 PM > 154/90, 75, 94% RA. JULIET WHITLEY 01/15/2021 4:41:20 PM > POST PROCEDURE 162/93, 71, 98% RA. COMPLETION OF PROCEDURE APPOINTMENT: POST PAIN 12/20, DRESSING SITE DRY AND INTACT, IV N/A, GAIT STEADY, TEACHING COMPLETED, PATIENT ACKNOWLEDGES UNDERSTANDING YES, PROCEDURE APPOINTMENT COMPLETED AT BY: Micah WHITLEY RN AT 1645. PN RADIOFREQUENCY DATE OF PROCEDURE 01/15/2021 . THERMO LESION RADIOFREQUENCY > 80 DEGREES : COOL - AVANOS SYSTEM SET AT 60* WITH TISSUE TARGET TEMP > 80* OR MORE. STRAIGHT NEEDLE . SIDE: : RIGHT . LEVELS: : L4-L5, L5-S1. NEEDLE/CATHETER/GAUGE: : 17 . CANULA LENGTH: : 100 MM . ACTIVE TIP: : 4 MM . GROUNDING PAD PLACED ON AFFECTED SIDE (MUSCULAR AREA): : LUMBAR (POSTERIOR UPPER THIGH) . 1 ST LEVEL: : L3,INITAL POSTIVE SENSORY RESPONE (50 HZ) 0.5,MOTOR RESPONSE (2 HZ-UP TO 3 VOLTS) 3.0 ,PRE-LOCAL IMPEDENCE READING OHMS 310 ,POST-LOCAL IMPEDENCE READING OHMS 241 ,DURING RF IMPEDENCE READING OHMS 209 , 2 ND LEVEL: : L4,INITIAL POSITIVE SENSORY RESPONSE (50 HZ) 0.1,MOTOR RESPONSE (2 HZ- UP TO 3 VOLTS) 3.0 ,PRE-LOCAL IMPEDENCE READING OHMS 510 ,POST-LOCAL IMEPEDENCE READING OHMS 466 ,DURING RF IMPEDENCE READING OHMS 379 , 3 RD LEVEL: : L5,INITIAL POSITIVE SENSORY RESPONSE (50 HZ) 0.4,MOTOR RESPONSE (2HZ- UP TO 3 VOLTS) 3.0 ,PRE- LOCAL IMPEDENCE READING OHMS 325 ,POST-LOCAL IMPEDENCE READING OHMS 297 ,DURING RF IMPEDENCE READING OHMS 240 , PRE PROCEDURE DIAGNOSES 1. LUMBAR SPONDYLOSIS. 2. LUMBOSACRAL SPONDYLOSIS POST PROCEDURE DIAGNOSES 1. LUMBAR SPONDYLOSIS. 2. LUMBOSACRAL SPONDYLOSIS PROCEDURE RIGHT L4-L5 AND RIGHT L5-S1 LUMBAR FACET RADIOFREQUENCY- AVANOS COOLED RF SURGEON DR. BONY ANTOINE EVENT SPECIALIST NONE ANESTHESIA LOCAL PRE PROCEDURE REPORT THE PATIENT HAS HISTORY OF CHRONIC LOW BACK PAIN. I EVALUATED THE PATIENT AND REVIEWED THE CHART. I WENT OVER THE RISKS, ALTERNATIVES, AND BENEFITS ASSOCIATED WITH THIS PROCEDURE. THE PATIENT WOULD LIKE TO PROCEED AND GAVE CONSENT TO PERFORM THE PROCEDURE. THE PATIENT DENIES UNEXPLAINABLE WEIGHT LOSS, FEVER, CHILLS OR NEW CHANGES IN URINARY OR BOWEL CONTROL. THE PATIENT IS COVID-19 NEGATIVE DESCRIPTION OF PROCEDURE THE PATIENT WAS BROUGHT TO THE PROCEDURE ROOM AND PLACED IN THE PRONE POSITION. A TIMEOUT WAS PERFORMED WHERE THE CONSENTED SITE WAS VERIFIED WITH EVERYONE IN THE ROOM. THE LUMBOSACRAL AREA WAS CLEANED WITH CHLORAPREP SOLUTION AND DRAPED ASEPTICALLY. THE PROCEDURE WAS DONE UNDER STERILE CONDITIONS. UNDER FLUOROSCOPIC GUIDANCE, TARGETS WERE SELECTED AT THE INTERSECTION OF THE RIGHT TRANSVERSE PROCESS OF L4, L5 AND ALA OF S1 WITH ITS RESPECTIVE SUPERIOR ARTICULAR PROCESS. I CONFIRMED AGAIN THE SITE OF TARGET. LIDOCAINE WAS USED TO NUMB THE SKIN AND THE SUBCUTANEOUS TISSUE BELOW IT. RADIOFREQUENCY CANNULAS, 17-GAUGE, 100 MM LONG WITH 4 MM ACTIVE TIP, WERE ADVANCED UNDER FLUOROSCOPIC GUIDANCE AND FOLLOWING PATIENT FEEDBACK UNTIL THE TARGET AREA WAS REACHED. POSITION OF THE CANNULA WAS VERIFIED WITH AP AND LATERAL VIEWS. AFTER PROPER POSITION OF THE CANNULA WAS ACHIEVED, WE WORKED WITH THE RIGHT SELECTED MEDIAN BRANCHES OF L3, L4 AND THE DORSAL RAMI OF L5. WE MEASURED THE CORRESPONDING IMPEDANCES AND MOTOR RESPONSES INDICATED IN THE RADIOFREQUENCY WORK SHEET. POSITION OF THE CANNULA WAS VERIFIED AGAIN WITH AP AND LATERAL VIEWS. LIDOCAINE 1%, 2 ML, WAS INJECTED AT EACH LEVEL. RADIOFREQUENCY WAS DONE AT EACH LEVEL USING THE [employer] SYSTEM-- COOLED RF-- WITH A SETTING AT THE MACHINE OF 60 DEGREES WITH A TARGET TISSUE TEMPERATURE OF 80 TO 90 DEGREES FOR A MINIMUM OF 150 SECONDS. AFTER RADIOFREQUENCY WAS DONE, THE PATIENT RECEIVED BUPIVACAINE 0.125%,1 ML, WITH DEXAMETHASONE 3 MG AT EACH SITE. THERE WAS NO EVIDENCE OF BLOOD, PARESTHESIA OR CEREBROSPINAL FLUID DURING THE PROCEDURE. THE PATIENT WAS SENT TO THE RECOVERY ROOMS. THE PATIENT WAS MOVING THE EXTREMITIES AND DOING WELL. EBL LESS THAN 5 ML. THERE WERE NO COMPLICATIONS DURING THE PROCEDURE. FLUOROSCOPY TIME WAS 2 MINUTE 6 SECONDS POST PROCEDURE NOTE THE PATIENT WILL BE SEEN IN A FOLLOW UP IN THE NEXT FEW WEEKS. INSTRUCTIONS WERE GIVEN, QUESTIONS WERE ANSWERED, AND THE PATIENT EXPRESSED UNDERSTANDING AND AGREES WITH THE PLAN. . I, SELAM VARELA, DOCUMENTED THE ABOVE INFORMATION ACTING A SCRIBE FOR DR. ANTOINE. I HAVE REVIEWED THE ABOVE DOCUMENT, WRITTEN BY FLORESITA GRANDA, AND I VERIFY THAT IT IS ACCURATE PROCEDURE CODES 00376 DESTROY LUMB/SAC FACET JNT, [place]: [place] [id number] DESTROY L/S FACET JNT ADDL, MODIFIERS: RT DISPOSITION & COMMUNICATION FOLLOW UP FOLLOW UP WITH DIRECTOR OF MEDICARE (REASON: POST RIGHT LUMBAR COOL RADIOFREQUENCY L4-L5, L5-S1) ELECTRONICALLY SIGNED BY BONY ANTOINE MD, MD ON 01/17/2021 AT 12:25 PM EST DISCLAIMER : THIS IS A VISIT SUMMARY EXTRACTED FROM THE [employer] CHART. IT IS NOT A COPY OF THE [employer] PROGRESS NOTE. TERESA
== END ==
LOC: M PAIN 14:00
PROVIDERS: ATTEND Anesthesiology
DX: M47.816 Spondylosis without myelopathy or radiculopathy, lumbar region (principal); E11.9 Type 2 diabetes mellitus without complications; G43.909 Migraine, unspecified, not intractable, without status migrainosus; I48.0 Paroxysmal atrial fibrillation; I10 Essential (primary) hypertension; K21.9 Gastro-esophageal reflux disease without esophagitis; E78.00 Pure hypercholesterolemia, unspecified; G61.0 Guillain-Barre syndrome; N40.0 Benign prostatic hyperplasia without lower urinary tract symptoms; Z79.82 Long term (current) use of aspirin; Z79.84 Long term (current) use of oral hypoglycemic drugs; Z79.891 Long term (current) use of opiate analgesic; Z79.899 Other long term (current) drug therapy; Z91.048 Other nonmedicinal substance allergy status
CPT/HCPCS: 64635; 64636; J1100

== ENCOUNTER → 2021-01-30 | Outpatient (CLI) | payer OTHER ==
[~2021-01-30] MED LIST changes: -BUPIVACAINE HCL 0.25% 30ML VIAL As Ordered ONE; -LIDOCAINE 1% SDV 30ML VIAL As Ordered ONE; -dexameTHASONE 10MG/1ML VIAL PRES.FREE (J1100 PER 1MG) As Ordered ONE; -diazePAM 5MG TABLET As Ordered ONE; -oxyCODONE 5MG TAB As Ordered ONE
--- NOTE | 2021-01-31 01:49 | ECWPNPC ---
PATIENT NAME: HAI DAIGLE : 1965 GENDER: MALE VISIT DATE: 01/30/2021 DISCHARGE DATE: 01/30/21954 VISIT LOCKED DATE TIME: PHYSICIAN: BRITT LANCASTER RESOURCE: BRITT LANCASTER REASON FOR APPOINTMENT 1. POST RIGHT LUMBAR COOL RADIOFREQUENCY L4-L5, L5-S1 HISTORY OF PRESENT ILLNESS GENERAL: HERE FOR POST PROCEDURE FOLLOW-UP. HAD RIGHT L4-5, L5-S1 COOL RADIOFREQUENCY ON 01/15/2021. REPORTING MARKED REDUCTION IN PAIN THAT CONTINUES TODAY. CHIEF AREA OF PAIN IS LEFT LOW BACK. PAIN IS AGGRAVATED WITH EXTENSION OF SPINE OR PROLONGED SITTING. DISCUSSED DIAGNOSTIC #2 LUMBAR L4-5, L5-S1 DIAGNOSTIC TESTING-ON LEFT LUMBAR FACETS. FALL RISK SCREENING: SCREENING : NO FALLS REPORTED IN THE LAST YEAR. PAIN SCREENING: PATIENT HAS A COMPLAINT OF ACUTE OR CHRONIC PAIN :YES LOCATION OF PAIN:LOW BACK RIGHT SIDE INTENSITY OF PAIN (SCALE OF 1 TO 10):3 WHAT DOES YOUR PAIN FEEL LIKE:ACHING, BURNING, STABBING, THROBBING DURATION:CONTINOUS, CONSTANT, ALL DAY PAIN IS INCREASED BY:ACTIVITIES PAIN IS DECREASED BY:USE OF PAIN MEDICATIONS NURSING NOTE: -. PAIN CENTER INTAKE QUESTIONS: DO YOU HAVE A HISTORY OF MRSA? :NO DO YOU TAKE A BLOOD THINNERS? :NO 81 MG. ASPIRIN DO YOU HAVE ANY BLEEDING DISORDERS? :NO ANY NEW NUMBNESS OR WEAKNESS IN YOUR LEGS OR ARMS? :YES NUMBNESS IN LEGS ANY PACEMAKER,DEFIBRILLATOR, OR DORSAL COLUMN STIMULATOR? :NO DO YOU HAVE ANY RASHES OR OPEN SORES? :NO ARE YOU ALLERGIC TO IV DYE? :NO ARE YOU DIABETIC? :YES ANY NEW PROBLEMS WITH YOUR MEDICATIONS? :NO HAVE YOU RECEIVED A VACCINE IN THE PAST 30 DAYS? :NO DO YOU PLAN TO RECEIVE A VACCINE IN THE NEXT 21 DAYS? :NO DO YOU NEED ANY PRESCRIPTION? :YES TRAZADONE DO YOU TAKE ANY IMMUNOSUPPRESSIVE MEDICATIONS? :YES NAYELY IS THERE A CHANCE YOU COULD BE ? :NO ARE YOU BREAST FEEDING? :NO CURRENT MEDICATIONS TAKING ASPIR-81 81 MG TABLET DELAYED RELEASE 1 TABLET ORALLY EVERY OTHER DAY TAKING CITRACAL PLUS 400MG TABLET 2 TABS ORALLY AT BEDTIME TAKING FLECAINIDE ACETATE 50 MG TABLET 1 TABLET ORALLY EVERY 12 HRS TAKING VITAMIN D3 MAXIMUM STRENGTH 5000 UNIT CAPSULE 1 CAPSULE ORALLY DAILY TAKING VITAMIN B-12 500 MCG TABLET 1 TABLET ORALLY SUN, STEPHIE, THPHIL, SAT TAKING TRULICITY 0.75 MG/0.5ML SOLUTION PEN-INJECTOR SUBCUTANEOUS WEEKLY TAKING METFORMIN HCL 1000 MG TABLET 1 TABLET WITH MEALS ORALLY TWICE DAILY TAKING MAGNESIUM 400 MG CAPSULE 1 CAP ORALLY BID TAKING BISOPROLOL FUMARATE 5 MG TABLET 1 TABLET ORALLY ONCE A DAY TAKING LIPITOR 10 MG TABLET 1 TABLET ORALLY ONCE A DAY TAKING MULTI FOR HIM TABLET 2 TABS ORALLY DAILY TAKING TAMSULOSIN HCL 0.4 MG CAPSULE 1 CAPSULE ONCE A DAY TAKING ZOFRAN 8 MG TABLET 1 TABLET ORALLY Q 8 HOURS NEEDED TAKING LOSARTAN POTASSIUM 25 MG TABLET 1 TABLET ORALLY ONCE A DAY TAKING DICYCLOMINE HCL 20 MG TABLET 1 TABLET NEEDED ORALLY QID TAKING JARDIANCE 10 MG TABLET 1 TABLET ORALLY ONCE A DAY TAKING POTASSIUM CHLORIDE 20 MEQ TABLET EXTENDED RELEASE 1 TABLET WITH FOOD ORALLY ONCE A DAY TAKING GABAPENTIN 300 MG CAPSULE 1 CAPSULE ORALLY BEFORE BEDTIME TAKING TIZANIDINE HCL 2 MG TABLET 1 TABLET NEEDED ORALLY EVERY 8 HRS TAKING CYMBALTA 60 MG CAPSULE DELAYED RELEASE PARTICLES 1 CAPSULE ORALLY BEFORE BEDTIME TAKING TRAZODONE HCL 100 MG TABLET 1/2 TABLET AT BEDTIME ORALLY ONCE A DAY TAKING SOMA 350 MG TABLET 1 TABLET NEEDED ORALLY FOR SPASMS AND PAIN EVERY 12 HOURS NEEDED MDD2 TAKING HUMIRA 20 MG/0.4ML PREFILLED SYRINGE KIT DIRECTED SUBCUTANEOUS TAKING PRILOSEC OTC 20 MG TABLET DELAYED RELEASE 1 TABLET 30 MINUTES BEFORE MORNING MEAL ORALLY ONCE A DAY TAKING PERCOCET 5-325 MG TABLET 1 TABLET NEEDED ORALLY EVERY 6 HRS MDD4 TAKING AMLODIPINE BESYLATE 2.5 MG TABLET 1 TABLET ORALLY ONCE A DAY NOT-TAKING PRILOSEC 40 MG CAPSULE DELAYED RELEASE 1/2 CAPSULE ORALLY ONCE A DAY NOT-TAKING PROBIOTIC 1 CAPSULE 1 CAP ORALLY DAILY NOT-TAKING COLCRYS 0.6 MG TABLET 1 TABLET PRN ORALLY ONCE A DAY NOT-TAKING PREDNISONE 5 MG TABLET 1 TABLET ORALLY ONCE A DAY NOT-TAKING COLESTIPOL HCL 1 GM TABLET 1 TABLET ORALLY BID, NOTES: 08/09/20201999 NOT-TAKING MELATONIN 5 MG TABLET 1 TABLET AT BEDTIME NEEDED WITH FOOD ORALLY ONCE A DAY, NOTES: PRN NOT-TAKING POTASSIUM BICARB & CHLORIDE 20 MEQ PACKET 2 TABS ORALLY TWICE A DAY NOT-TAKING SPIRONOLACTONE 25 MG TABLET 1 TABLET ORALLY ONCE A DAY NOT-TAKING TOPIRAMATE 50 MG TABLET 1 TABLET ORALLY BEFORE BEDTIME NOT-TAKING PERCOCET 5-325 MG TABLET 1 TO 2 TAB ORALLY Q6H PRN MDD 4, NOTES: DUPLICATE NOT-TAKING ENTOCORT EC 3 MG CAPSULE DELAYED RELEASE PARTICLES DIRECTED ORALLY , NOTES: 2 WEEKS MEDICATION LIST REVIEWED AND RECONCILED WITH THE PATIENT PAST MEDICAL HISTORY DIABETES MIGRAINES PAF - INTERMITTENT A-FIB HTN GERD HIGH CHOLESTEROL GUILLAIN BARRE PNEUMONIA ILIEITIS A FIB WITH RVR DIVERTICULITIS BPH ED MULTIPLE GI PROBLEMS CHRON'S ALLERGIES SURGICAL GLUE: RASH, ITCHING - ALLERGY SOCIAL HISTORY GENERAL: TOBACCO USE ARE YOU A:NONSMOKER LATEX QUESTIONNAIRE LATEX ALLERGY : HAVE YOU EVER DEVELOPED ANY TYPE OF REACTION AFTER HANDLING LATEX PRODUCTS SUCH RUBBER GLOVES, CONDOMS, DIAPHRAGMS, BALLOONS, SOCKS, OR UNDERWEAR?NO LATEX ALLERGY : HAVE YOU EVER DEVELOPED ANY TYPE OF REACTION DURING OR AFTER DENTAL APPOINTMENT, VAGINAL/RECTAL EXAMINATION, SURGICAL PROCEDURE, OR ANY OTHER EXPOSURE?NO LATEX RISK : HAVE YOU EVER HAD ANY DIFFICULTY BREATHING OR HIVES AFTER EATING OR HANDLING ANY FRUITS, OR VEGETABLES; SUCH KIWI, BANANAS, STONE FRUITS, OR CHESTNUTSNO LATEX RISK : DO YOU HAVE A PREVIOUS PERSONAL HISTORY OF MORE THAN NINE SURGERIES, SPINA BIFIDA, OR REPEATED CATHERIZATIONS? NO LATEX RISK : ARE YOU FREQUENTLY EXPOSED TO LATEX PRODUCTS IN YOUR OCCUPATION?NO DATE ASKED : 01/30/2021 ALCOHOL USE: NO. ALCOHOL SCREENING DID YOU HAVE A DRINK CONTAINING ALCOHOL IN THE PAST YEAR?YES HOW OFTEN DID YOU HAVE SIX OR MORE DRINKS ON ONE OCCASION IN THE PAST YEAR?NEVER (0 POINTS) HOW MANY DRINKS DID YOU HAVE ON A TYPICAL DAY WHEN YOU WERE DRINKING IN THE PAST YEAR?1 OR 2 (0 POINTS) HOW OFTEN DID YOU HAVE A DRINK CONTAINING ALCOHOL IN THE PAST YEAR?MONTHLY OR LESS (1 POINT) POINTS1 INTERPRETATIONNEGATIVE RECREATIONAL DRUG USE DRUG USE?NO CAFFEINE CAFFEINE USE?YES 1-2 SODA/DAY SEXUAL HX HAD SEX IN THE LAST 12 MONTHS (VAGINAL, ORAL, OR ANAL)?NO HAVE YOU EVER HAD AN STD?NO ORTHODOX ORTHODOX NO ORTHODOXY BELIEFS THAT WOULD IMPACT HEALTH CARE. 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 EXERCISE: WALKS. MARITAL STATUS: . OTHERS AT HOME: SPOUSE. - PFS REFERRAL NEEDED?NO CLERGY REFERRAL NEEDED?NO PUBLIC HEALTH REFERRAL NEEDED?NO WAS THE PROVIDER NOTIFIED OF ANY PERTINENT INFO?YES N/A HAS THE PATIENT BEEN EDUCATED REGARDING HIS/HER PLAN OF CARE?YES HAS THE PATIENT BEEN EDUCATED REGARDING PAIN, THE RISK FOR PAIN, THE IMPORTANCE OF EFFECTIVE PAIN MANAGEMENT, AND THE PAIN ASSESSMENT PROCESS?YES ADVANCE DIRECTIVE ADVANCE DIRECTIVE DISCUSSED WITH PATIENT:YES HCP ON FILE - , AUDREY DAIGLE [phone] REVIEW OF SYSTEMS CONSTITUTIONAL: ANY RECENT FEVER NO . CHILLS NO . WEIGHT CHANGE OF UNKNOWN REASONS NO . GASTROENTEROLOGY: NEW UNEXPLAINABLE CHANGES IN BOWEL CONTROL NO . CONSTIPATION NO . GENITOURINARY: ANY NEW CHANGE IN BLADDER CONTROL? NO . NEUROLOGY: NEW ONSET DIZZINESS OR NEUROLOGICAL CHANGES NOT MENTIONED NO . NEW NUMBNESS OR PAIN PATTERNS NOT MENTIONED AND PERTINENT TO TODAY'S VISIT NO . CARDIOLOGY: NEW CHEST PRESSURE NO . PATIENT DENIES NO . RESPIRATORY: UNEXPLAINABLE COUGH NO . NEW SHORTNESS OF BREATH NO . VITAL SIGNS WT 174.8 LBS, HT 70 IN, BMI 25.08 INDEX, BP 141/84 MM HG, HR 81 /MIN, RR 18 /MIN, TEMP 95.7 F, OXYGEN SAT % 100%, SAFE IN ENV? (Y/N) YES, NA INITIALS AL 09:03T.QUINN CLARK. EXAMINATION GENERAL EXAMINATION: GENERALAWAKE,ALERT ,PLEAASANT . PSYCHAFFECT NORMAL . LUNGS:LUNG VALLADARES ARE CLEAR TO AUSCULTATION BILATERALLY. GOOD MOVEMENT OF AIR . HEART:S1, S2 IN A REGULAR RATE AND RHYTHM. NO SIGNIFICANT MURMURS, RUBS OR GALLOPS NOTED . LUMBAR:PALPATION: + FOR PAIN OVER L/S SPINE. + FOR PAIN OVER L/S PARASPINALS .SPECIFIC POINT TENDERNESS OVER LEFT L4/5-L5/S1 LUMBAR FACETS WITH FACET LOADING. NEUROLOGIC EXAM:NORMAL SENSATION LIGHT TOUCH BILAT. LOWER EXTREMITIES . ASSESSMENTS OTHER CHRONIC PAIN - G89.29 (PRIMARY) SPONDYLOSIS OF LUMBAR REGION WITHOUT MYELOPATHY OR RADICULOPATHY - M47.816 TREATMENT OTHER CHRONIC PAIN DECREASE TRAZODONE HCL TABLET, 50 MG, 1 TAB, ORALLY, BEFORE BEDTIME, 30 DAYS, 30, REFILLS 5 REFILL PERCOCET TABLET, 5-325 MG, 1 TABLET NEEDED, ORALLY, EVERY 6 HRS MDD4, 30 DAYS, 120, REFILLS 0 PAIN PROCEDURE LOGDATE OF PROCEDURE1PROCEDURE:RIGHT LUMBAR COOL RADIOFREQUENCY L4-L5,L5-O9IEOZTA OF PRE SEDATEVALIUM 5MG, OXYCODONE 5MGRESULT:REDUCTION IN PAIN CONTINUES TODAY NOTES: LEFT DIAGNOSTIC LUMBAR FACET BLOCK L4-5,L5-S1 PRINTED AND REVIEWED PRE PROCEURE WITH PATIENT CODY CLARK. PROCEDURE CODES FA211 ESTABILISHED PATIENT [facility] CHARGE DISPOSITION & COMMUNICATION FOLLOW UP POST PROCEDURE (REASON: LEFT DIAGNOSTIC LUMBAR FACET BLOCK L4-5,L5-S1) ELECTRONICALLY SIGNED BY MARTÍN GOLDBERG ON 01/30/2021 AT 03:04 PM EDT DISCLAIMER : THIS IS A VISIT SUMMARY EXTRACTED FROM THE [employer] CHART. IT IS NOT A COPY OF THE [employer] PROGRESS NOTE. TERESA
== END ==
LOC: M PAIN 09:00
PROVIDERS: ATTEND Nurse Practitioner Family
DX: G89.29 Other chronic pain (principal); M47.816 Spondylosis without myelopathy or radiculopathy, lumbar region; E11.9 Type 2 diabetes mellitus without complications; G43.909 Migraine, unspecified, not intractable, without status migrainosus; I48.0 Paroxysmal atrial fibrillation; I10 Essential (primary) hypertension; K21.9 Gastro-esophageal reflux disease without esophagitis; E78.00 Pure hypercholesterolemia, unspecified; N40.0 Benign prostatic hyperplasia without lower urinary tract symptoms; N52.9 Male erectile dysfunction, unspecified; K50.90 Crohn's disease, unspecified, without complications; Z79.82 Long term (current) use of aspirin; Z79.891 Long term (current) use of opiate analgesic; Z79.899 Other long term (current) drug therapy; Z79.84 Long term (current) use of oral hypoglycemic drugs; Z91.048 Other nonmedicinal substance allergy status

== ENCOUNTER → 2021-01-31 | Outpatient (CLI) | payer OTHER | LOC: M LABSMTC 09:31 | PROVIDERS: ATTEND Anesthesiology | DX: Z01.818 Encounter for other preprocedural examination (principal); Z11.52 Encounter for screening for COVID-19 ==

== ENCOUNTER → 2021-02-05 | Outpatient (CLI) | payer OTHER ==
[~2021-02-05] MED LIST changes: +BUPIVACAINE HCL 0.25% 30ML VIAL As Ordered ONE; +ISOVUE-M 300 61% 15ML VIAL As Ordered ONE; +LIDOCAINE 1% SDV 30ML VIAL As Ordered ONE
--- NOTE | 2021-02-05 11:11 | REP ---
INDICATION: LEFT DIAGNOSTIC LUMBAR FACET BLOCK. COMPARISON: None. TECHNIQUE: One views. 21.5 seconds of fluoroscopy time is reported. FINDINGS: A single last image hold fluoroscopically obtained spot radiograph(s) of the lumbar spine document(s) needle position(s) and contrast injection associated with injection procedure. IMPRESSION: Procedural imaging. <Electronically signed by Alfredo Stanley > 02/05/21 [id number]
--- NOTE | 2021-02-08 01:27 | ECWPNPC ---
PATIENT NAME: HAI DAIGLE : 1965 GENDER: MALE VISIT DATE: 02/05/2021 DISCHARGE DATE: 02/05/21 1105 VISIT LOCKED DATE TIME: PHYSICIAN: BONY ANTOINE MD RESOURCE: BONY ANTOINE MD REASON FOR APPOINTMENT 1. LEFT DIAGNOSTIC LUMBAR FACET BLOCK L4-5,L5-S1 HISTORY OF PRESENT ILLNESS GENERAL: -. FALL RISK SCREENING: SCREENING : NO FALLS REPORTED IN THE LAST YEAR. PAIN SCREENING: PATIENT HAS A COMPLAINT OF ACUTE OR CHRONIC PAIN :YES LOCATION OF PAIN:NECK, LOW BACK LEFT SIDE INTENSITY OF PAIN (SCALE OF 1 TO 10):8 WHAT DOES YOUR PAIN FEEL LIKE:ACHING, STABBING DURATION:CONTINOUS, CONSTANT, STEADY PAIN IS INCREASED BY:ACTIVITIES PAIN IS DECREASED BY:USE OF PAIN MEDICATIONS HOT TUB & HOT SHOWER NURSING NOTE: -. PAIN CENTER INTAKE QUESTIONS: DO YOU HAVE A HISTORY OF MRSA? :NO DO YOU TAKE A BLOOD THINNERS? :NO DO YOU HAVE ANY BLEEDING DISORDERS? :NO ANY NEW NUMBNESS OR WEAKNESS IN YOUR LEGS OR ARMS? :YES LEFT LEG FEELING WEAKER ANY PACEMAKER,DEFIBRILLATOR, OR DORSAL COLUMN STIMULATOR? :NO DO YOU HAVE ANY RASHES OR OPEN SORES? :NO ARE YOU ALLERGIC TO IV DYE? :NO ARE YOU DIABETIC? :YES FSBS: 101 ANY NEW PROBLEMS WITH YOUR MEDICATIONS? :NO HAVE YOU RECEIVED A VACCINE IN THE PAST 30 DAYS? :NO DO YOU PLAN TO RECEIVE A VACCINE IN THE NEXT 21 DAYS? :NO DO YOU TAKE ANY IMMUNOSUPPRESSIVE MEDICATIONS? :YES HUMIRA EVERY FRIDAY. STATES HE WILL NOT TAKE IT SATURDAY 02/03 ANY HISTORY OF SEIZURES? :NO ANY HISTORY OF CARDIAC ISSUES OR EVENTS? :YES A-FIB DO YOU HAVE ANY KIDNEY OR LIVER DISEASE? :NO DO YOU HAVE SLEEP APNEA? :NO ANY RECENT HEAD INJURY? :NO DO YOU HAVE ANY NEW INFECTIONS? :NO IS THERE A CHANCE YOU COULD BE ? :NO ARE YOU BREAST FEEDING? :NO WHEN DID YOU LAST EAT? : 02/04/211999 WHEN DID YOU LAST DRINK? : 0600 WHAT DID YOU LAST DRINK? : WATER NAME OF PERSON DRIVING YOU HOME? : NEIL DO YOU HAVE ANY OTHER QUESTIONS OR CONCERNS? : - CURRENT MEDICATIONS TAKING ASPIR-81 81 MG TABLET DELAYED RELEASE 1 TABLET ORALLY EVERY OTHER DAY TAKING CITRACAL PLUS 400MG TABLET 2 TABS ORALLY AT BEDTIME TAKING FLECAINIDE ACETATE 50 MG TABLET 1 TABLET ORALLY EVERY 12 HRS TAKING VITAMIN D3 MAXIMUM STRENGTH 5000 UNIT CAPSULE 1 CAPSULE ORALLY DAILY TAKING VITAMIN B-12 500 MCG TABLET 1 TABLET ORALLY SUN, TUES, TH, SAT TAKING TRULICITY 0.75 MG/0.5ML SOLUTION PEN-INJECTOR SUBCUTANEOUS WEEKLY, NOTES: 02/03/21 TAKING METFORMIN HCL 1000 MG TABLET 1 TABLET WITH MEALS ORALLY TWICE DAILY, NOTES: 02/04/212099 TAKING MAGNESIUM 400 MG CAPSULE 1 CAP ORALLY BID TAKING BISOPROLOL FUMARATE 5 MG TABLET 1 TABLET ORALLY ONCE A DAY, NOTES: 02/04/212099 TAKING LIPITOR 10 MG TABLET 1 TABLET ORALLY ONCE A DAY TAKING MULTI FOR HIM TABLET 2 TABS ORALLY DAILY TAKING TAMSULOSIN HCL 0.4 MG CAPSULE 1 CAPSULE ONCE A DAY TAKING ZOFRAN 8 MG TABLET 1 TABLET ORALLY Q 8 HOURS NEEDED TAKING LOSARTAN POTASSIUM 25 MG TABLET 1 TABLET ORALLY ONCE A DAY, NOTES: 01/07/212099 TAKING DICYCLOMINE HCL 20 MG TABLET 1 TABLET NEEDED ORALLY QID TAKING JARDIANCE 10 MG TABLET 1 TABLET ORALLY ONCE A DAY, NOTES: 02/04/212099 TAKING POTASSIUM CHLORIDE 20 MEQ TABLET EXTENDED RELEASE 1 TABLET WITH FOOD ORALLY ONCE A DAY TAKING GABAPENTIN 300 MG CAPSULE 1 CAPSULE ORALLY BEFORE BEDTIME TAKING TIZANIDINE HCL 2 MG TABLET 1 TABLET NEEDED ORALLY EVERY 8 HRS, NOTES: NONE RECENTLY TAKING CYMBALTA 60 MG CAPSULE DELAYED RELEASE PARTICLES 1 CAPSULE ORALLY BEFORE BEDTIME TAKING SOMA 350 MG TABLET 1 TABLET NEEDED ORALLY FOR SPASMS AND PAIN EVERY 12 HOURS NEEDED MDD2, NOTES: 01/05/21 TAKING HUMIRA 20 MG/0.4ML PREFILLED SYRINGE KIT DIRECTED SUBCUTANEOUS , NOTES: 01/27/21 TAKING PRILOSEC OTC 20 MG TABLET DELAYED RELEASE 1 TABLET 30 MINUTES BEFORE MORNING MEAL ORALLY ONCE A DAY TAKING AMLODIPINE BESYLATE 2.5 MG TABLET 1 TABLET ORALLY ONCE A DAY, NOTES: 02/04/21 TAKING TRAZODONE HCL 50 MG TABLET 1 TAB ORALLY BEFORE BEDTIME, NOTES: 02/02/21 TAKING PERCOCET 5-325 MG TABLET 1 TABLET NEEDED ORALLY EVERY 6 HRS MDD4, NOTES: 02/02/21 NOT-TAKING PRILOSEC 40 MG CAPSULE DELAYED RELEASE 1/2 CAPSULE ORALLY ONCE A DAY NOT-TAKING PROBIOTIC 1 CAPSULE 1 CAP ORALLY DAILY NOT-TAKING COLCRYS 0.6 MG TABLET 1 TABLET PRN ORALLY ONCE A DAY NOT-TAKING PREDNISONE 5 MG TABLET 1 TABLET ORALLY ONCE A DAY NOT-TAKING COLESTIPOL HCL 1 GM TABLET 1 TABLET ORALLY BID, NOTES: 08/09/20201999 NOT-TAKING MELATONIN 5 MG TABLET 1 TABLET AT BEDTIME NEEDED WITH FOOD ORALLY ONCE A DAY, NOTES: PRN NOT-TAKING POTASSIUM BICARB & CHLORIDE 20 MEQ PACKET 2 TABS ORALLY TWICE A DAY NOT-TAKING SPIRONOLACTONE 25 MG TABLET 1 TABLET ORALLY ONCE A DAY NOT-TAKING TOPIRAMATE 50 MG TABLET 1 TABLET ORALLY BEFORE BEDTIME NOT-TAKING PERCOCET 5-325 MG TABLET 1 TO 2 TAB ORALLY Q6H PRN MDD 4, NOTES: DUPLICATE NOT-TAKING ENTOCORT EC 3 MG CAPSULE DELAYED RELEASE PARTICLES DIRECTED ORALLY , NOTES: 2 WEEKS MEDICATION LIST REVIEWED AND RECONCILED WITH THE PATIENT PAST MEDICAL HISTORY DIABETES MIGRAINES PAF - INTERMITTENT A-FIB HTN GERD HIGH CHOLESTEROL GUILLAIN BARRE PNEUMONIA ILIEITIS A FIB WITH RVR DIVERTICULITIS BPH ED MULTIPLE GI PROBLEMS CHRON'S ALLERGIES SURGICAL GLUE: RASH, ITCHING - ALLERGY SOCIAL HISTORY GENERAL: TOBACCO USE ARE YOU A:NONSMOKER LATEX QUESTIONNAIRE LATEX ALLERGY : HAVE YOU EVER DEVELOPED ANY TYPE OF REACTION AFTER HANDLING LATEX PRODUCTS SUCH RUBBER GLOVES, CONDOMS, DIAPHRAGMS, BALLOONS, SOCKS, OR UNDERWEAR?NO LATEX ALLERGY : HAVE YOU EVER DEVELOPED ANY TYPE OF REACTION DURING OR AFTER DENTAL APPOINTMENT, VAGINAL/RECTAL EXAMINATION, SURGICAL PROCEDURE, OR ANY OTHER EXPOSURE?NO LATEX RISK : HAVE YOU EVER HAD ANY DIFFICULTY BREATHING OR HIVES AFTER EATING OR HANDLING ANY FRUITS, OR VEGETABLES; SUCH KIWI, BANANAS, STONE FRUITS, OR CHESTNUTSNO LATEX RISK : DO YOU HAVE A PREVIOUS PERSONAL HISTORY OF MORE THAN NINE SURGERIES, SPINA BIFIDA, OR REPEATED CATHERIZATIONS? NO LATEX RISK : ARE YOU FREQUENTLY EXPOSED TO LATEX PRODUCTS IN YOUR OCCUPATION?NO DATE ASKED : 01/30/2021 ALCOHOL USE: NO. ALCOHOL SCREENING DID YOU HAVE A DRINK CONTAINING ALCOHOL IN THE PAST YEAR?YES HOW OFTEN DID YOU HAVE SIX OR MORE DRINKS ON ONE OCCASION IN THE PAST YEAR?NEVER (0 POINTS) HOW MANY DRINKS DID YOU HAVE ON A TYPICAL DAY WHEN YOU WERE DRINKING IN THE PAST YEAR?1 OR 2 (0 POINTS) HOW OFTEN DID YOU HAVE A DRINK CONTAINING ALCOHOL IN THE PAST YEAR?MONTHLY OR LESS (1 POINT) POINTS1 INTERPRETATIONNEGATIVE RECREATIONAL DRUG USE DRUG USE?NO CAFFEINE CAFFEINE USE?YES 1-2 SODA/DAY SEXUAL HX HAD SEX IN THE LAST 12 MONTHS (VAGINAL, ORAL, OR ANAL)?NO HAVE YOU EVER HAD AN STD?NO YAZDANISM YAZDANISM NO YAZDANISM BELIEFS THAT WOULD IMPACT HEALTH CARE. 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 EXERCISE: WALKS. MARITAL STATUS: . OTHERS AT HOME: SPOUSE. - PFS REFERRAL NEEDED?NO CLERGY REFERRAL NEEDED?NO PUBLIC HEALTH REFERRAL NEEDED?NO WAS THE PROVIDER NOTIFIED OF ANY PERTINENT INFO?YES N/A HAS THE PATIENT BEEN EDUCATED REGARDING HIS/HER PLAN OF CARE?YES HAS THE PATIENT BEEN EDUCATED REGARDING PAIN, THE RISK FOR PAIN, THE IMPORTANCE OF EFFECTIVE PAIN MANAGEMENT, AND THE PAIN ASSESSMENT PROCESS?YES ADVANCE DIRECTIVE ADVANCE DIRECTIVE DISCUSSED WITH PATIENT:YES HCP ON FILE - , AUDREY DAIGLE [phone] VITAL SIGNS WT 168.8 LBS, HT 70 IN, BMI 24.22 INDEX, BP 144/74 MM HG, HR 68 /MIN, RR 18 /MIN, TEMP 95.0 F, OXYGEN SAT % 100%, SAFE IN ENV? (Y/N) YES, NA INITIALS SC 10:05, REVIEWED BY: APA. VAISHALI RN. EXAMINATION GENERAL EXAMINATION: A HISTORY AND PHYSICAL EXAM ON THE PATIENT WAS DONE ON 01/30/2021 (DATE OF ORIGINAL ASSESSMENT) IN PREPARATION OF SURGERY/PROCEDURE. I HAVE NOW REASSESSED THIS PATIENT'S HEALTH STATUS AND PERFORMED AN UPDATED EXAM TODAY. ALL CHANGES IN THE PATIENT'S HISTORY, PHYSICAL EXAM, PRE-EXISTING CONDITONS, AND INDICATIONS/CONTRAINDICATIONS TO THE PLANNED PROCEDURE AND ANESTHESIA ARE DOCUMENTED AND EVALUATED BELOW. I ATTEST TO THE ADEQUACY AND APPROPRIATENESS OF MY ASSESSMENT, AND CONFIRM THE NECESSITY FOR THE PLANNED PROCEDURE. THE PATIENT IS ALERT, ORIENTED TIMES THREE AND COOPERATIVE. LUNGS ARE CLEAR TO AUSCULTATION. HEART SHOWS REGULAR RHYTHM, NO MURMURS AND NO GALLOPS. ASSESSMENTS SPONDYLOSIS WITHOUT MYELOPATHY OR RADICULOPATHY, LUMBAR REGION - M47.816 (PRIMARY) SPONDYLOSIS OF LUMBOSACRAL REGION WITHOUT MYELOPATHY OR RADICULOPATHY - M47.817 TREATMENT SPONDYLOSIS WITHOUT MYELOPATHY OR RADICULOPATHY, LUMBAR REGION [facility] FACET BLOCK (PAIN)[id number] COMPLETION OF PROCEDURAL VISIT WHEN MEETS CRITERIAPEIVANNA KRISHNAMURTHYIL R 02/05/2021 10:58:42 AM > CRITERIA MET OTHERS CLINICAL NOTES: PAT COMPLETED 02/02/21 AT 1244 BY Ael TOM RN. PROCEDURES PAIN NURSING RECORD PROCEDURE IN ROOM 1024, PHYSICIAN IN ROOM 1032, START 1035, FINISH 1044, PHYSICIAN OUT OF ROOM 1046, OUT OF ROOM 1051, ECG NORMAL SINUS, PATIENT SHIELDED YES, SAFETY STRAP YES, PREP CHLOROPREP Ale TOM RN, DRESSING TEGADERM DR. ANTOINE LOC: VAISHALISALVADOR R 02/05/2021 10:37:13 AM > , 1. ALERT, ORIENTED RESP: VAISHALI,SALVADOR R 02/05/2021 10:37:16 AM > , 1. REGULAR, NO DYSPNEA COLOR: PETRAS,SALVADOR R 02/05/2021 10:37:19 AM > , 1. PINK SKIN: PETRKATHERINE,SALVADOR R 02/05/2021 10:37:22 AM > , 1. WARM, DRY POSITION: PETRKATHERINE,SALVADOR R 02/05/2021 10:37:24 AM > , 1. PRONE VITALS: PETRKATHERINE,SALVADOR R 02/05/2021 10:30:30 AM > 144/76, 73, 18, 99% PETRAS,SALVADOR R 02/05/2021 10:42:06 AM > 140/75, 74, 16, 99% PETRAS,SALVADOR R 02/05/2021 10:46:14 AM > 142/79, 81, 16, 100% PETRAS,SALVADOR R 02/05/2021 10:55:33 AM > 149/91, 75, 16, 97% COMPLETION OF PROCEDURE APPOINTMENT: POST PAIN 2, DRESSING SITE DRY AND INTACT, IV N/A, GAIT STEADY, TEACHING COMPLETED, PATIENT ACKNOWLEDGES UNDERSTANDING YES, PROCEDURE APPOINTMENT COMPLETED AT 1100 BY: Ale TOM RN PN LUMBAR FACET BLOCK DIAGNOSTIC PRE PROCEDURE DIAGNOSIS LUMBAR SPONDYLOSIS, LUMBOSACRAL SPONDYLOSIS POST PROCEDURE DIAGNOSIS LUMBAR SPONDYLOSIS, LUMBOSACRAL SPONDYLOSIS PROCEDURE LEFT L4-L5 AND LEFT L5-S1 FACET BLOCK DIAGNOSTIC NUMBER [address] BONY ANTOINE TOOL DESIGNER NONE ANESTHESIA LOCAL PRE PROCEDURE NOTE THE PATIENT WITH HISTORY OF CHRONIC LOW BACK PAIN. I EVALUATED THE PATIENT AND REVIEWED THE CHART. I WENT OVER THE RISKS, ALTERNATIVES, AND BENEFITS ASSOCIATED WITH THIS PROCEDURE. THE PATIENT WOULD LIKE TO PROCEED AND GAVE CONSENT TO PERFORM THE PROCEDURE. AGREED WITH THE PATIENT, WE ARE DOING THIS PROCEDURE TO DETERMINE IF THE PATIENT IS A CANDIDATE FOR A RADIOFREQUENCY ABLATION OF THE FACETS JOINTS. THE PATIENT DENIES UNEXPLAINABLE WEIGHT LOSS, FEVER, CHILLS, OR NEW CHANGES IN URINARY OR BOWEL CONTROL. THE PATIENT IS COVID-19 NEGATIVE DESCRIPTION OF PROCEDURE THE PATIENT WAS BROUGHT TO THE PROCEDURE ROOM AND PLACED IN THE PRONE POSITION. THE LUMBOSACRAL AREA WAS CLEANED WITH CHLORAPREP SOLUTION AND DRAPED ASEPTICALLY. THE PROCEDURE WAS DONE UNDER STERILE CONDITIONS. A TIMEOUT WAS PERFORMED WHERE THE CONSENTED SITE WAS VERIFIED WITH EVERYONE IN THE ROOM. UNDER FLUOROSCOPIC GUIDANCE, TARGETS WERE SELECTED AT THE INTERSECTION OF THE LEFT TRANSVERSE PROCESS OF L4, L5 AND ALA OF S1 WITH ITS RESPECTIVE SUPERIOR ARTICULAR PROCESS WITH A TARGET OF THE MEDIAN BRANCHES OF L3, L4 AND THE DORSAL RAMI OF L5. I CONFIRMED AGAIN THE SITE OF TARGET. LIDOCAINE WAS USED TO NUMB THE SKIN AND THE SUBCUTANEOUS TISSUE BELOW IT. SPINAL NEEDLE, 22-GAUGE, WAS ADVANCED UNDER FLUOROSCOPIC GUIDANCE AND FOLLOWING PATIENT FEEDBACK UNTIL THE TARGETS WERE REACHED. POSITION OF THE NEEDLES WAS VERIFIED WITH AP AND LATERAL VIEWS. AFTER PROPER POSITION OF THE NEEDLES WAS ACHIEVED, ISOVUE-M DYE 30%, 0.1 ML, WAS INJECTED AT EACH SITE SHOWING ADEQUATE SPREAD OF THE DYE. THEN, A SOLUTION OF 0.4 ML OF BUPIVACAINE 0.25% WAS INJECTED AT EACH SITE. THE MEDICATIONS WERE VERIFIED WITH THE NURSE. THERE WAS NO EVIDENCE OF BLOOD, PARESTHESIA OR CEREBROSPINAL FLUID DURING THE PROCEDURE. THE PATIENT WAS SENT TO THE RECOVERY ROOM. THE PATIENT WAS MOVING THE EXTREMITIES AND DOING WELL. THERE WERE NO COMPLICATIONS DURING THE PROCEDURE. ESTIMATED BLOOD LOSS WAS LESS THAN 5 ML. FLUOROSCOPY TIME WAS 21 SECONDS POST PROCEDURE NOTE THE PATIENT WILL DOCUMENT THE PAIN LEVEL AND RESPONSE TO THIS PROCEDURE PER PAIN DIARY. THE PATIENT WILL BE SEEN IN A FOLLOW UP IN THE NEXT FEW WEEKS. FURTHER DETERMINATION FOR THE PATIENT'S CASE WILL BE DONE AT THE NEXT VISIT. INSTRUCTIONS WERE GIVEN, QUESTIONS WERE ANSWERED, AND THE PATIENT EXPRESSED UNDERSTANDING AND AGREED WITH THE PLAN. I, SELAM VARELA, DOCUMENTED THE ABOVE INFORMATION ACTING A SCRIBE FOR DR. ANTOINE. I HAVE REVIEWED THE ABOVE DOCUMENT, WRITTEN BY SELAM VARELA, PAMPHLET DISTRIBUTOR, AND I VERIFY THAT IT IS ACCURATE 22. PROCEDURE CODES 16227 INJ PARAVERT F JNT L/S 1 LEV, [place]IFI[place]: [place] [id number] INJ PARAVERT F JNT L/S 2 LEV, MODIFIERS: LT DISPOSITION & COMMUNICATION FOLLOW UP F/UP MARIE WITH MANAGER CLINICAL APPLICATIONS OR DR. Adkins (REASON: POST LEFT DIAGNOSTIC LUMBAR FACET BLOCK L4-L5, L5-S1) ELECTRONICALLY SIGNED BY BONY ANTOINE MD, ON 02/07/2021 AT 03:43 PM EDT DISCLAIMER : THIS IS A VISIT SUMMARY EXTRACTED FROM THE [employer] CHART. IT IS NOT A COPY OF THE [employer] PROGRESS NOTE. TERESA
== END ==
LOC: M PAIN 09:45
PROVIDERS: ATTEND Anesthesiology
DX: M47.816 Spondylosis without myelopathy or radiculopathy, lumbar region (principal); M47.817 Spondylosis without myelopathy or radiculopathy, lumbosacral region; E11.9 Type 2 diabetes mellitus without complications; G43.909 Migraine, unspecified, not intractable, without status migrainosus; I48.0 Paroxysmal atrial fibrillation; I10 Essential (primary) hypertension; K21.9 Gastro-esophageal reflux disease without esophagitis; E78.00 Pure hypercholesterolemia, unspecified; N40.0 Benign prostatic hyperplasia without lower urinary tract symptoms; N52.9 Male erectile dysfunction, unspecified; K50.90 Crohn's disease, unspecified, without complications; G61.0 Guillain-Barre syndrome; Z79.82 Long term (current) use of aspirin; Z79.891 Long term (current) use of opiate analgesic; Z79.84 Long term (current) use of oral hypoglycemic drugs; Z79.899 Other long term (current) drug therapy; Z91.048 Other nonmedicinal substance allergy status
CPT/HCPCS: 64493; 64494; Q9967

== ENCOUNTER → 2021-02-12 | Outpatient (CLI) | payer OTHER ==
[~2021-02-12] MED LIST changes: -BUPIVACAINE HCL 0.25% 30ML VIAL As Ordered ONE; -ISOVUE-M 300 61% 15ML VIAL As Ordered ONE; -LIDOCAINE 1% SDV 30ML VIAL As Ordered ONE
--- NOTE | 2021-02-17 04:39 | ECWPNPC ---
PATIENT NAME: HAI DAIGLE : 1965 GENDER: MALE VISIT DATE: 02/12/2021 DISCHARGE DATE: 02/12/21 1407 VISIT LOCKED DATE TIME: PHYSICIAN: BRITT LANCASTER RESOURCE: BRITT LANCASTER REASON FOR APPOINTMENT 1. POST LEFT DIAGNOSTIC LUMBAR FACET BLOCK L4-L5, L5-S1 HISTORY OF PRESENT ILLNESS DEPRESSION SCREENING: PHQ-2 (2015 EDITION) LITTLE INTEREST OR PLEASURE IN DOING THINGS?NOT AT ALL FEELING DOWN, DEPRESSED, OR HOPELESS?NOT AT ALL TOTAL SCORE0 GENERAL: HAI IS BEING SEEN FOR POST PROCEDURE FOLLOW-UP. HAD LEFT L4-5, L5-S1 DIAGNOSTIC LUMBAR BLOCK ON 02/05/2021. HOURLY PAIN DIARY IS REVIEWED. REPORTING MARKED REDUCTION FOR 24 HOURS TO INCLUDE LEFT LEG SYMPTOMS POST PROCEDURE. CONTINUES TO DO WELL WITH RIGHT LOW BACK PAIN SINCE HAVING RADIOFREQUENCY PROCEDURE. DISCUSSED MEDICATION AND TREATMENT PLAN. -. FALL RISK SCREENING: SCREENING : NO FALLS REPORTED IN THE LAST YEAR. PAIN SCREENING: PATIENT HAS A COMPLAINT OF ACUTE OR CHRONIC PAIN :YES LOCATION OF PAIN:LOW BACK INTENSITY OF PAIN (SCALE OF 1 TO 10):8 WHAT DOES YOUR PAIN FEEL LIKE:ACHING, THROBBING, SHOOTING DURATION:CONTINOUS, CONSTANT, MAINLY DURING THE NIGHT PAIN IS INCREASED BY:ACTIVITIES PAIN IS DECREASED BY:USE OF PAIN MEDICATIONS NURSING NOTE: -. PAIN CENTER INTAKE QUESTIONS: DO YOU HAVE A HISTORY OF MRSA? :NO DO YOU TAKE A BLOOD THINNERS? :NO 81 MG. ASPIRIN DO YOU HAVE ANY BLEEDING DISORDERS? :NO ANY NEW NUMBNESS OR WEAKNESS IN YOUR LEGS OR ARMS? :YES NUMBNESS IN LEGS ANY PACEMAKER,DEFIBRILLATOR, OR DORSAL COLUMN STIMULATOR? :NO DO YOU HAVE ANY RASHES OR OPEN SORES? :NO ARE YOU ALLERGIC TO IV DYE? :NO ARE YOU DIABETIC? :YES ANY NEW PROBLEMS WITH YOUR MEDICATIONS? :NO HAVE YOU RECEIVED A VACCINE IN THE PAST 30 DAYS? :NO DO YOU PLAN TO RECEIVE A VACCINE IN THE NEXT 21 DAYS? :NO DO YOU NEED ANY PRESCRIPTION? :YES TRAZADONE DO YOU TAKE ANY IMMUNOSUPPRESSIVE MEDICATIONS? :YES NAYELY IS THERE A CHANCE YOU COULD BE ? :NO ARE YOU BREAST FEEDING? :NO CURRENT MEDICATIONS TAKING ASPIR-81 81 MG TABLET DELAYED RELEASE 1 TABLET ORALLY EVERY OTHER DAY TAKING CITRACAL PLUS 400MG TABLET 2 TABS ORALLY AT BEDTIME TAKING FLECAINIDE ACETATE 50 MG TABLET 1 TABLET ORALLY EVERY 12 HRS TAKING VITAMIN D3 MAXIMUM STRENGTH 5000 UNIT CAPSULE 1 CAPSULE ORALLY DAILY TAKING VITAMIN B-12 500 MCG TABLET 1 TABLET ORALLY ELISABET, STEPHIE, RAMESH, SAT TAKING TRULICITY 0.75 MG/0.5ML SOLUTION PEN-INJECTOR SUBCUTANEOUS WEEKLY TAKING METFORMIN HCL 1000 MG TABLET 1 TABLET WITH MEALS ORALLY TWICE DAILY TAKING MAGNESIUM 400 MG CAPSULE 1 CAP ORALLY BID TAKING BISOPROLOL FUMARATE 5 MG TABLET 1 TABLET ORALLY ONCE A DAY TAKING LIPITOR 10 MG TABLET 1 TABLET ORALLY ONCE A DAY TAKING MULTI FOR HIM TABLET 2 TABS ORALLY DAILY TAKING TAMSULOSIN HCL 0.4 MG CAPSULE 1 CAPSULE ONCE A DAY TAKING ZOFRAN 8 MG TABLET 1 TABLET ORALLY Q 8 HOURS NEEDED TAKING LOSARTAN POTASSIUM 25 MG TABLET 1 TABLET ORALLY ONCE A DAY TAKING DICYCLOMINE HCL 20 MG TABLET 1 TABLET NEEDED ORALLY QID TAKING JARDIANCE 10 MG TABLET 1 TABLET ORALLY ONCE A DAY TAKING POTASSIUM CHLORIDE 20 MEQ TABLET EXTENDED RELEASE 1 TABLET WITH FOOD ORALLY ONCE A DAY TAKING GABAPENTIN 300 MG CAPSULE 1 CAPSULE ORALLY BEFORE BEDTIME TAKING TIZANIDINE HCL 2 MG TABLET 1 TABLET NEEDED ORALLY EVERY 8 HRS, NOTES: NONE RECENTLY TAKING CYMBALTA 60 MG CAPSULE DELAYED RELEASE PARTICLES 1 CAPSULE ORALLY BEFORE BEDTIME TAKING SOMA 350 MG TABLET 1 TABLET NEEDED ORALLY FOR SPASMS AND PAIN EVERY 12 HOURS NEEDED MDD2 TAKING HUMIRA 20 MG/0.4ML PREFILLED SYRINGE KIT DIRECTED SUBCUTANEOUS TAKING PRILOSEC OTC 20 MG TABLET DELAYED RELEASE 1 TABLET 30 MINUTES BEFORE MORNING MEAL ORALLY ONCE A DAY TAKING AMLODIPINE BESYLATE 2.5 MG TABLET 1 TABLET ORALLY ONCE A DAY TAKING TRAZODONE HCL 50 MG TABLET 1 TAB ORALLY BEFORE BEDTIME TAKING PERCOCET 5-325 MG TABLET 1 TABLET NEEDED ORALLY EVERY 6 HRS MDD4 NOT-TAKING PRILOSEC 40 MG CAPSULE DELAYED RELEASE 1/2 CAPSULE ORALLY ONCE A DAY NOT-TAKING PROBIOTIC 1 CAPSULE 1 CAP ORALLY DAILY NOT-TAKING COLCRYS 0.6 MG TABLET 1 TABLET PRN ORALLY ONCE A DAY NOT-TAKING PREDNISONE 5 MG TABLET 1 TABLET ORALLY ONCE A DAY NOT-TAKING COLESTIPOL HCL 1 GM TABLET 1 TABLET ORALLY BID, NOTES: 08/09/20201999 NOT-TAKING MELATONIN 5 MG TABLET 1 TABLET AT BEDTIME NEEDED WITH FOOD ORALLY ONCE A DAY, NOTES: PRN NOT-TAKING POTASSIUM BICARB & CHLORIDE 20 MEQ PACKET 2 TABS ORALLY TWICE A DAY NOT-TAKING SPIRONOLACTONE 25 MG TABLET 1 TABLET ORALLY ONCE A DAY NOT-TAKING TOPIRAMATE 50 MG TABLET 1 TABLET ORALLY BEFORE BEDTIME NOT-TAKING PERCOCET 5-325 MG TABLET 1 TO 2 TAB ORALLY Q6H PRN MDD 4, NOTES: DUPLICATE NOT-TAKING ENTOCORT EC 3 MG CAPSULE DELAYED RELEASE PARTICLES DIRECTED ORALLY , NOTES: 2 WEEKS MEDICATION LIST REVIEWED AND RECONCILED WITH THE PATIENT PAST MEDICAL HISTORY DIABETES MIGRAINES PAF - INTERMITTENT A-FIB HTN GERD HIGH CHOLESTEROL GUILLAIN BARRE PNEUMONIA ILIEITIS A FIB WITH RVR DIVERTICULITIS BPH ED MULTIPLE GI PROBLEMS CHRON'S ALLERGIES SURGICAL GLUE: RASH, ITCHING - ALLERGY SOCIAL HISTORY GENERAL: TOBACCO USE ARE YOU A:NONSMOKER LATEX QUESTIONNAIRE LATEX ALLERGY : HAVE YOU EVER DEVELOPED ANY TYPE OF REACTION AFTER HANDLING LATEX PRODUCTS SUCH RUBBER GLOVES, CONDOMS, DIAPHRAGMS, BALLOONS, SOCKS, OR UNDERWEAR?NO LATEX ALLERGY : HAVE YOU EVER DEVELOPED ANY TYPE OF REACTION DURING OR AFTER DENTAL APPOINTMENT, VAGINAL/RECTAL EXAMINATION, SURGICAL PROCEDURE, OR ANY OTHER EXPOSURE?NO LATEX RISK : HAVE YOU EVER HAD ANY DIFFICULTY BREATHING OR HIVES AFTER EATING OR HANDLING ANY FRUITS, OR VEGETABLES; SUCH KIWI, BANANAS, STONE FRUITS, OR CHESTNUTSNO LATEX RISK : DO YOU HAVE A PREVIOUS PERSONAL HISTORY OF MORE THAN NINE SURGERIES, SPINA BIFIDA, OR REPEATED CATHERIZATIONS? NO LATEX RISK : ARE YOU FREQUENTLY EXPOSED TO LATEX PRODUCTS IN YOUR OCCUPATION?NO DATE ASKED : 02/12/2021 ALCOHOL USE: NO. ALCOHOL SCREENING DID YOU HAVE A DRINK CONTAINING ALCOHOL IN THE PAST YEAR?YES HOW OFTEN DID YOU HAVE SIX OR MORE DRINKS ON ONE OCCASION IN THE PAST YEAR?NEVER (0 POINTS) HOW MANY DRINKS DID YOU HAVE ON A TYPICAL DAY WHEN YOU WERE DRINKING IN THE PAST YEAR?1 OR 2 (0 POINTS) HOW OFTEN DID YOU HAVE A DRINK CONTAINING ALCOHOL IN THE PAST YEAR?MONTHLY OR LESS (1 POINT) POINTS1 INTERPRETATIONNEGATIVE RECREATIONAL DRUG USE DRUG USE?NO CAFFEINE CAFFEINE USE?YES 1-2 SODA/DAY SEXUAL HX HAD SEX IN THE LAST 12 MONTHS (VAGINAL, ORAL, OR ANAL)?NO HAVE YOU EVER HAD AN STD?NO CONGREGATIONAL CONGREGATIONAL NO ADVENTISM BELIEFS THAT WOULD IMPACT HEALTH CARE. 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 EXERCISE: WALKS. MARITAL STATUS: . OTHERS AT HOME: SPOUSE. - PFS REFERRAL NEEDED?NO CLERGY REFERRAL NEEDED?NO PUBLIC HEALTH REFERRAL NEEDED?NO WAS THE PROVIDER NOTIFIED OF ANY PERTINENT INFO?YES N/A HAS THE PATIENT BEEN EDUCATED REGARDING HIS/HER PLAN OF CARE?YES HAS THE PATIENT BEEN EDUCATED REGARDING PAIN, THE RISK FOR PAIN, THE IMPORTANCE OF EFFECTIVE PAIN MANAGEMENT, AND THE PAIN ASSESSMENT PROCESS?YES ADVANCE DIRECTIVE ADVANCE DIRECTIVE DISCUSSED WITH PATIENT:YES HCP ON FILE - , AUDREY DAIGLE [phone] REVIEW OF SYSTEMS CONSTITUTIONAL: ANY RECENT FEVER NO . CHILLS NO . WEIGHT CHANGE OF UNKNOWN REASONS NO . GASTROENTEROLOGY: NEW UNEXPLAINABLE CHANGES IN BOWEL CONTROL NO . CONSTIPATION NO . GENITOURINARY: ANY NEW CHANGE IN BLADDER CONTROL? NO . NEUROLOGY: NEW ONSET DIZZINESS OR NEUROLOGICAL CHANGES NOT MENTIONED NO . NEW NUMBNESS OR PAIN PATTERNS NOT MENTIONED AND PERTINENT TO TODAY'S VISIT NO . CARDIOLOGY: NEW CHEST PRESSURE NO . PATIENT DENIES NO . RESPIRATORY: UNEXPLAINABLE COUGH NO . NEW SHORTNESS OF BREATH NO . VITAL SIGNS WT 172 LBS, HT 70 IN, BMI 24.68 INDEX, BP 168/88 MM HG, HR 81 /MIN, RR 18 /MIN, TEMP 97.6 F, OXYGEN SAT % 100%CODY CLARK. EXAMINATION GENERAL EXAMINATION: GENERALAWAKE,ALERT ,PLEAASANT . PSYCHAFFECT NORMAL . LUNGS:LUNG VALLADARES ARE CLEAR TO AUSCULTATION BILATERALLY. GOOD MOVEMENT OF AIR . HEART:S1, S2 IN A REGULAR RATE AND RHYTHM. NO SIGNIFICANT MURMURS, RUBS OR GALLOPS NOTED . LUMBAR:PALPATION: + FOR PAIN OVER L/S SPINE. + FOR PAIN OVER L/S PARASPINALS .SPECIFIC POINT TENDERNESS OVER LEFT L4/5-L5/S1 LUMBAR FACETS WITH FACET LOADING. NEUROLOGIC EXAM:NORMAL SENSATION LIGHT TOUCH BILAT. LOWER EXTREMITIES . ASSESSMENTS SPONDYLOSIS WITHOUT MYELOPATHY OR RADICULOPATHY, LUMBAR REGION - M47.816 (PRIMARY) OTHER CHRONIC PAIN - G89.29 TREATMENT SPONDYLOSIS WITHOUT MYELOPATHY OR RADICULOPATHY, LUMBAR REGION CONTINUE SOMA TABLET, 350 MG, 1 TABLET NEEDED, ORALLY FOR SPASMS AND PAIN, EVERY 12 HOURS NEEDED MDD2 REFILL TRAZODONE HCL TABLET, 50 MG, 1 TAB, ORALLY, BEFORE BEDTIME, 30 DAYS, 30, REFILLS 5 CONTINUE PERCOCET TABLET, 5-325 MG, 1 TABLET NEEDED, ORALLY, EVERY 6 HRS MDD4 MEDICATION: VALIUM TAB 5MG ORALLY (DIAZEPAM) (ORDERED FOR 02/19/2021) MEDICATION: OXYCODONE HCL TAB 5MG ORALLY (ORDERED FOR 02/19/2021) NOTES: LEFT LUMBAR COOL RADIOFREQUENCY L4-5,L5-S1 PRINTED AND REVIEWED PRE PROCEDURE INFORMATION WITH PATIENT CODY CLARK. OTHER CHRONIC PAIN PAIN PROCEDURE LOGDATE OF PROCEDURE02/05/2021ROCEDURE:LEFT DIAGNOSTIC LUMBAR FACET BLOCK #2 L4-L5,L5-[id number] OF PRE SEDATE0/0RESULT:GREATER THAN 80% REDUCTION IN PAIN FOR 24 HOURS POST PROCEDURE PROCEDURE CODES FA211 ESTABILISHED PATIENT [facility] CHARGE DISPOSITION & COMMUNICATION FOLLOW UP POST PROCEDURE (REASON: LEFT LUMBAR COOL RADIOFREQUENCY L4-5,L5-S1) ELECTRONICALLY SIGNED BY MARTÍN GOLDBERG ON 02/16/2021 AT 08:43 AM EDT DISCLAIMER : THIS IS A VISIT SUMMARY EXTRACTED FROM THE [employer] CHART. IT IS NOT A COPY OF THE [employer] PROGRESS NOTE. TERESA
== END ==
LOC: M PAIN 13:30
PROVIDERS: ATTEND Nurse Practitioner Family
DX: M47.816 Spondylosis without myelopathy or radiculopathy, lumbar region (principal); G89.29 Other chronic pain; E11.9 Type 2 diabetes mellitus without complications; G43.909 Migraine, unspecified, not intractable, without status migrainosus; I48.0 Paroxysmal atrial fibrillation; I10 Essential (primary) hypertension; K21.9 Gastro-esophageal reflux disease without esophagitis; E78.00 Pure hypercholesterolemia, unspecified; N40.0 Benign prostatic hyperplasia without lower urinary tract symptoms; N52.9 Male erectile dysfunction, unspecified; Z79.891 Long term (current) use of opiate analgesic; Z79.899 Other long term (current) drug therapy; Z79.84 Long term (current) use of oral hypoglycemic drugs; Z91.048 Other nonmedicinal substance allergy status

== ENCOUNTER → 2021-02-17 | Outpatient (CLI) | payer OTHER | LOC: M LABSMTC 08:51 | PROVIDERS: ATTEND Anesthesiology | DX: Z11.52 Encounter for screening for COVID-19 (principal) ==

== ENCOUNTER → 2021-02-22 | Outpatient (CLI) | payer OTHER ==
[~2021-02-22] MED LIST changes: +BUPIVACAINE HCL 0.25% 30ML VIAL As Ordered ONE; +LIDOCAINE 1% SDV 30ML VIAL As Ordered ONE; +dexameTHASONE 10MG/1ML VIAL PRES.FREE (J1100 PER 1MG) As Ordered ONE; +diazePAM 5MG TABLET As Ordered ONE; +oxyCODONE 5MG TAB As Ordered ONE
--- NOTE | 2021-02-22 16:38 | REP ---
INDICATION: LEFT LUMBAR COOL RADIOFREQUENCY. COMPARISON: None. TECHNIQUE: Multiple C-arm views lower lumbar spine. FINDINGS: [place] are seen along the lower lumbar spine. IMPRESSION: 86 seconds fluoroscopy time utilized. <Electronically signed by Tom Buck > 02/22/21 [id number]
--- NOTE | 2021-02-23 23:37 | ECWPNPC ---
PATIENT NAME: HAI DAIGLE : 1965 GENDER: MALE VISIT DATE: 02/22/2021 DISCHARGE DATE: 02/22/21743 VISIT LOCKED DATE TIME: PHYSICIAN: BONY ANTOINE MD RESOURCE: BONY ANTOINE MD REASON FOR APPOINTMENT 1. LEFT LUMBAR COOL RADIOFREQUENCY L4-5,L5-S1 HISTORY OF PRESENT ILLNESS GENERAL: -. FALL RISK SCREENING: SCREENING : NO FALLS REPORTED IN THE LAST YEAR. PAIN SCREENING: PATIENT HAS A COMPLAINT OF ACUTE OR CHRONIC PAIN :YES LOCATION OF PAIN:NECK, LOW BACK LEFT SIDE INTENSITY OF PAIN (SCALE OF 1 TO 10):8 WHAT DOES YOUR PAIN FEEL LIKE:ACHING, BURNING, STABBING, THROBBING INCREASING NUMBNESS/TINGLING SENSATION UPPER LEGS DURATION:CONTINOUS, CONSTANT, STEADY, AWAKENS FROM SLEEP PAIN IS INCREASED BY:ACTIVITIES PAIN IS DECREASED BY:USE OF PAIN MEDICATIONS HEAT/HOT TUB PLAN/GOALS/TREATMENT/INTERVENTION/FOLLOW UP:SEE PLAN NURSING NOTE: -. PAIN CENTER INTAKE QUESTIONS: DO YOU HAVE A HISTORY OF MRSA? :NO DO YOU TAKE A BLOOD THINNERS? :NO DO YOU HAVE ANY BLEEDING DISORDERS? :NO ANY NEW NUMBNESS OR WEAKNESS IN YOUR LEGS OR ARMS? :YES LEFT LEG FEELING WEAKER, UPPER THIGH NUMBNESS/TINGLING SENSATION ANY PACEMAKER,DEFIBRILLATOR, OR DORSAL COLUMN STIMULATOR? :NO DO YOU HAVE ANY RASHES OR OPEN SORES? :NO ARE YOU ALLERGIC TO IV DYE? :NO ARE YOU DIABETIC? :YES FSBS: 103 ANY NEW PROBLEMS WITH YOUR MEDICATIONS? :NO HAVE YOU RECEIVED A VACCINE IN THE PAST 30 DAYS? :NO DO YOU PLAN TO RECEIVE A VACCINE IN THE NEXT 21 DAYS? :NO DO YOU TAKE ANY IMMUNOSUPPRESSIVE MEDICATIONS? :YES HUMIRA EVERY FRIDAY. STATES HE WILL NOT TAKE IT FRIDAY/ ANY HISTORY OF SEIZURES? :NO ANY HISTORY OF CARDIAC ISSUES OR EVENTS? :YES A-FIB DO YOU HAVE ANY KIDNEY OR LIVER DISEASE? :NO DO YOU HAVE SLEEP APNEA? :NO ANY RECENT HEAD INJURY? :NO DO YOU HAVE ANY NEW INFECTIONS? :NO IS THERE A CHANCE YOU COULD BE ? :NO ARE YOU BREAST FEEDING? :NO WHEN DID YOU LAST EAT? : 02/22/21 0500 WHEN DID YOU LAST DRINK? : 1200 WHAT DID YOU LAST DRINK? : WATER NAME OF PERSON DRIVING YOU HOME? : NEIL DO YOU HAVE ANY OTHER QUESTIONS OR CONCERNS? : NO CURRENT MEDICATIONS TAKING ASPIR-81 81 MG TABLET DELAYED RELEASE 1 TABLET ORALLY EVERY OTHER DAY TAKING CITRACAL PLUS 400MG TABLET 2 TABS ORALLY AT BEDTIME TAKING FLECAINIDE ACETATE 50 MG TABLET 1 TABLET ORALLY EVERY 12 HRS TAKING VITAMIN D3 MAXIMUM STRENGTH 5000 UNIT CAPSULE 1 CAPSULE ORALLY DAILY TAKING VITAMIN B-12 500 MCG TABLET 1 TABLET ORALLY SUN, TUES, THURS, SAT TAKING TRULICITY 0.75 MG/0.5ML SOLUTION PEN-INJECTOR SUBCUTANEOUS WEEKLY, NOTES: 02/17/21 TAKING METFORMIN HCL 1000 MG TABLET 1 TABLET WITH MEALS ORALLY TWICE DAILY, NOTES: 02/21/212099 TAKING MAGNESIUM 400 MG CAPSULE 1 CAP ORALLY BID TAKING BISOPROLOL FUMARATE 5 MG TABLET 1 TABLET ORALLY ONCE A DAY, NOTES: 02/21/212099 TAKING LIPITOR 10 MG TABLET 1 TABLET ORALLY ONCE A DAY TAKING MULTI FOR HIM TABLET 2 TABS ORALLY DAILY TAKING TAMSULOSIN HCL 0.4 MG CAPSULE 1 CAPSULE ONCE A DAY TAKING ZOFRAN 8 MG TABLET 1 TABLET ORALLY Q 8 HOURS NEEDED TAKING LOSARTAN POTASSIUM 25 MG TABLET 1 TABLET ORALLY ONCE A DAY, NOTES: 02/21/212099 TAKING DICYCLOMINE HCL 20 MG TABLET 1 TABLET NEEDED ORALLY QID TAKING JARDIANCE 10 MG TABLET 1 TABLET ORALLY ONCE A DAY, NOTES: 02/21/212099 TAKING POTASSIUM CHLORIDE 20 MEQ TABLET EXTENDED RELEASE 1 TABLET WITH FOOD ORALLY ONCE A DAY TAKING GABAPENTIN 300 MG CAPSULE 1 CAPSULE ORALLY BEFORE BEDTIME, NOTES: 02/21/21 TAKING TIZANIDINE HCL 2 MG TABLET 1 TABLET NEEDED ORALLY EVERY 8 HRS, NOTES: NONE RECENTLY TAKING CYMBALTA 60 MG CAPSULE DELAYED RELEASE PARTICLES 1 CAPSULE ORALLY BEFORE BEDTIME TAKING HUMIRA 20 MG/0.4ML PREFILLED SYRINGE KIT DIRECTED SUBCUTANEOUS , NOTES: 02/17/21 TAKING PRILOSEC OTC 20 MG TABLET DELAYED RELEASE 1 TABLET 30 MINUTES BEFORE MORNING MEAL ORALLY ONCE A DAY TAKING AMLODIPINE BESYLATE 2.5 MG TABLET 1 TABLET ORALLY ONCE A DAY, NOTES: 02/21/21 TAKING SOMA 350 MG TABLET 1 TABLET NEEDED ORALLY FOR SPASMS AND PAIN EVERY 12 HOURS NEEDED MDD2, NOTES: NONE RECENTLY TAKING TRAZODONE HCL 50 MG TABLET 1 TAB ORALLY BEFORE BEDTIME, NOTES: NONE RECENTLY TAKING PERCOCET 5-325 MG TABLET 1 TABLET NEEDED ORALLY EVERY 6 HRS MDD4, NOTES: NONE RECENTLY NOT-TAKING PRILOSEC 40 MG CAPSULE DELAYED RELEASE 1/2 CAPSULE ORALLY ONCE A DAY NOT-TAKING PROBIOTIC 1 CAPSULE 1 CAP ORALLY DAILY NOT-TAKING COLCRYS 0.6 MG TABLET 1 TABLET PRN ORALLY ONCE A DAY NOT-TAKING PREDNISONE 5 MG TABLET 1 TABLET ORALLY ONCE A DAY NOT-TAKING COLESTIPOL HCL 1 GM TABLET 1 TABLET ORALLY BID, NOTES: 08/09/20201999 NOT-TAKING MELATONIN 5 MG TABLET 1 TABLET AT BEDTIME NEEDED WITH FOOD ORALLY ONCE A DAY, NOTES: PRN NOT-TAKING POTASSIUM BICARB & CHLORIDE 20 MEQ PACKET 2 TABS ORALLY TWICE A DAY NOT-TAKING SPIRONOLACTONE 25 MG TABLET 1 TABLET ORALLY ONCE A DAY NOT-TAKING TOPIRAMATE 50 MG TABLET 1 TABLET ORALLY BEFORE BEDTIME NOT-TAKING PERCOCET 5-325 MG TABLET 1 TO 2 TAB ORALLY Q6H PRN MDD 4, NOTES: DUPLICATE NOT-TAKING ENTOCORT EC 3 MG CAPSULE DELAYED RELEASE PARTICLES DIRECTED ORALLY , NOTES: 2 WEEKS MEDICATION LIST REVIEWED AND RECONCILED WITH THE PATIENT PAST MEDICAL HISTORY DIABETES MIGRAINES PAF - INTERMITTENT A-FIB HTN GERD HIGH CHOLESTEROL GUILLAIN BARRE PNEUMONIA ILIEITIS A FIB WITH RVR DIVERTICULITIS BPH ED MULTIPLE GI PROBLEMS CHRON'S ALLERGIES SURGICAL GLUE: RASH, ITCHING - ALLERGY SURGICAL HISTORY BOWEL RESECTION 2013 RIGHT KNEE ARTHROSCOPY, LEFT ALSO DONE YEARS LATER 2013 GASTRIC BYPASS RIGHT INGUINAL HERNIA REPAIR 06/24/18 CHOLECYSTECTOMY 11/2018 EGD 12/2019 EXPLORATORY LAP 12/2019 SOCIAL HISTORY GENERAL: TOBACCO USE ARE YOU A:NONSMOKER LATEX QUESTIONNAIRE LATEX ALLERGY : HAVE YOU EVER DEVELOPED ANY TYPE OF REACTION AFTER HANDLING LATEX PRODUCTS SUCH RUBBER GLOVES, CONDOMS, DIAPHRAGMS, BALLOONS, SOCKS, OR UNDERWEAR?NO LATEX ALLERGY : HAVE YOU EVER DEVELOPED ANY TYPE OF REACTION DURING OR AFTER DENTAL APPOINTMENT, VAGINAL/RECTAL EXAMINATION, SURGICAL PROCEDURE, OR ANY OTHER EXPOSURE?NO LATEX RISK : HAVE YOU EVER HAD ANY DIFFICULTY BREATHING OR HIVES AFTER EATING OR HANDLING ANY FRUITS, OR VEGETABLES; SUCH KIWI, BANANAS, STONE FRUITS, OR CHESTNUTSNO LATEX RISK : DO YOU HAVE A PREVIOUS PERSONAL HISTORY OF MORE THAN NINE SURGERIES, SPINA BIFIDA, OR REPEATED CATHERIZATIONS? NO LATEX RISK : ARE YOU FREQUENTLY EXPOSED TO LATEX PRODUCTS IN YOUR OCCUPATION?NO DATE ASKED : 02/20/2021 ALCOHOL USE: NO. ALCOHOL SCREENING DID YOU HAVE A DRINK CONTAINING ALCOHOL IN THE PAST YEAR?YES HOW OFTEN DID YOU HAVE SIX OR MORE DRINKS ON ONE OCCASION IN THE PAST YEAR?NEVER (0 POINTS) HOW MANY DRINKS DID YOU HAVE ON A TYPICAL DAY WHEN YOU WERE DRINKING IN THE PAST YEAR?1 OR 2 (0 POINTS) HOW OFTEN DID YOU HAVE A DRINK CONTAINING ALCOHOL IN THE PAST YEAR?MONTHLY OR LESS (1 POINT) POINTS1 INTERPRETATIONNEGATIVE RECREATIONAL DRUG USE DRUG USE?NO CAFFEINE CAFFEINE USE?YES 1-2 SODA/DAY SEXUAL HX HAD SEX IN THE LAST 12 MONTHS (VAGINAL, ORAL, OR ANAL)?NO HAVE YOU EVER HAD AN STD?NO CHEONDOISM CHEONDOISM NO QUAKER BELIEFS THAT WOULD IMPACT HEALTH CARE. 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 EXERCISE: WALKS. MARITAL STATUS: . OTHERS AT HOME: SPOUSE. - PFS REFERRAL NEEDED?NO CLERGY REFERRAL NEEDED?NO PUBLIC HEALTH REFERRAL NEEDED?NO WAS THE PROVIDER NOTIFIED OF ANY PERTINENT INFO?YES N/A HAS THE PATIENT BEEN EDUCATED REGARDING HIS/HER PLAN OF CARE?YES HAS THE PATIENT BEEN EDUCATED REGARDING PAIN, THE RISK FOR PAIN, THE IMPORTANCE OF EFFECTIVE PAIN MANAGEMENT, AND THE PAIN ASSESSMENT PROCESS?YES ADVANCE DIRECTIVE ADVANCE DIRECTIVE DISCUSSED WITH PATIENT:YES HCP ON FILE - , AUDREY DAIGLE [phone] HOSPITALIZATION/MAJOR DIAGNOSTIC PROCEDURE SURGERY RELATED GUILLAIN BARRE REQUIRING PLASMAPHERESIS, IVIG, STEROIDS AND INTUBATION [facility] 09/2015 PNEUMONIA, ILEITIS 02/2018 VITAL SIGNS WT 169.2 LBS, HT 70 IN, BMI 24.28 INDEX, BP 158/79 MM HG, HR 70 /MIN, RR 18 /MIN, TEMP 97.3 F, OXYGEN SAT % 99%, SAFE IN ENV? (Y/N) YES, NA INITIALS SC 13:58, REVIEWED BY: APA. VAISHALI RN. EXAMINATION GENERAL: A HISTORY AND PHYSICAL EXAM ON THE PATIENT WAS DONE ON 02/12/2021(DATE OF ORIGINAL ASSESSMENT) IN PREPARATION OF SURGERY/PROCEDURE. I HAVE NOW REASSESSED THIS PATIENT'S HEALTH STATUS AND PERFORMED AN UPDATED EXAM TODAY. ALL CHANGES IN THE PATIENT'S HISTORY, PHYSICAL EXAM, PRE-EXISTING CONDITONS, AND INDICATIONS/CONTRAINDICATIONS TO THE PLANNED PROCEDURE AND ANESTHESIA ARE DOCUMENTED AND EVALUATED BELOW. I ATTEST TO THE ADEQUACY AND APPROPRIATENESS OF MY ASSESSMENT, AND CONFIRM THE NECESSITY FOR THE PLANNED PROCEDURE. THE PATIENT IS ALERT, ORIENTED TIMES THREE AND COOPERATIVE. LUNGS ARE CLEAR TO AUSCULTATION. HEART SHOWS REGULAR RHYTHM, NO MURMURS AND NO GALLOPS. ASSESSMENTS SPONDYLOSIS OF LUMBAR REGION WITHOUT MYELOPATHY OR RADICULOPATHY - M47.816 (PRIMARY) SPONDYLOSIS OF LUMBOSACRAL REGION WITHOUT MYELOPATHY OR RADICULOPATHY - M47.817 TREATMENT SPONDYLOSIS OF LUMBAR REGION WITHOUT MYELOPATHY OR RADICULOPATHY SMC FACET BLOCK (PAIN)[id number] COMPLETION OF PROCEDURAL VISIT WHEN MEETS CRITERIA MEDICATION: VALIUM TAB 5MG ORALLY (DIAZEPAM)DEBBIE CONLEY RN 02/22/2021 2:23:40 PM > VERIFIED. VAISHALI,SALVADOR R 02/22/2021 2:25:55 PM > ADMINISTERED MEDICATION: OXYCODONE HCL TAB 5MG ORALLY DEBBIE CONLEY RN 02/22/2021 2:24:10 PM > VERIFIED. VAISHALI,SALVADOR R 02/22/2021 2:26:18 PM > ADMINISTERED OTHERS NOTES: 02/20/21 PAT COMPLETED. Micah WHITLEY MAINTENANCE MANAGER . PROCEDURES PAIN NURSING RECORD PROCEDURE IN ROOM 1521, PHYSICIAN IN ROOM 1538, START 1543, FINISH 1630, PHYSICIAN OUT OF ROOM 1632, ECG NORMAL SINUS, PATIENT SHIELDED YES, SAFETY STRAP YES, PREP CHLOROPREP Ale TOM RN, DRESSING TEGADERM DR. ANTOINE LOC: PETRAS,SALVADOR R 02/22/2021 3:43:55 PM > , 1. ALERT, ORIENTED RESP: PETRAS,SALVADOR R 02/22/2021 3:43:58 PM > , 1. REGULAR, NO DYSPNEA COLOR: PETRAS,SALVADOR R 02/22/2021 3:44:01 PM > , 1. PINK SKIN: PETRAS,SALVADOR R 02/22/2021 3:44:04 PM > , 1. WARM, DRY POSITION: PETRAS,SALVADOR R 02/22/2021 3:44:06 PM > , 1. PRONE VITALS: PETRAS,SALVADOR R 02/22/2021 3:23:50 PM > 168/81, 71, 16, 100% PETRAS,SALVADOR R 02/22/2021 3:35:19 PM > 155/86, 69, 18, 98% PETRAS,SALVADOR R 02/22/2021 3:42:30 PM > 156/92, 73, 18, 99% PETRAS,SALVADOR R 02/22/2021 3:55:41 PM > 154/79/72,18, 99% PETRAS,SALVADOR R 02/22/2021 4:12:35 PM > 156/87, 73, 18, 99% PETRAS,SALVADOR R 02/22/2021 4:25:12 PM > 157/91, 71, 16, 100% VICKI,CHRISTINA 02/22/2021 4:40:13 PM > 165/93,73,16,99% GUTIERREZ,JULIET 02/22/2021 4:45:50 PM > POST PROCEDURE 176/78, 66, 98% RA, 18. COMPLETION OF PROCEDURE APPOINTMENT: POST PAIN 02/17 "PRESSURE AT INJECTION SITE", DRESSING SITE DRY AND INTACT, IV N/A, GAIT STEADY, TEACHING COMPLETED, PATIENT ACKNOWLEDGES UNDERSTANDING YES, PROCEDURE APPOINTMENT COMPLETED AT 1650 BY: Micah WHITLEY RN PN RADIOFREQUENCY DATE OF PROCEDURE 02/23/2021 THERMO LESION RADIOFREQUENCY > 80 DEGREES : COOL - AVANOS SYSTEM SET AT 60* WITH TISSUE TARGET TEMP > 80* OR MORE. STRAIGHT NEEDLE SIDE: : LEFT LEVELS: : L4-L5, L5-S1 NEEDLE/CATHETER/GAUGE: : 17 CANULA LENGTH: : 150 MM ACTIVE TIP: : 4 MM GROUNDING PAD PLACED ON AFFECTED SIDE (MUSCULAR AREA): : LUMBAR (POSTERIOR UPPER THIGH) 1 ST LEVEL: : L3, INITAL POSTIVE SENSORY RESPONE (50 HZ) 0.1, MOTOR RESPONSE (2 HZ-UP TO 3 VOLTS) 3.0, PRE-LOCAL IMPEDENCE READING OHMS 274, POST-LOCAL IMPEDENCE READING OHMS 288, DURING RF IMPEDENCE READING OHMS 215 2 ND LEVEL: : L4, INITIAL POSITIVE SENSORY RESPONSE (50 HZ) 0.1, MOTOR RESPONSE (2 HZ- UP TO 3 VOLTS) 3.0, PRE-LOCAL IMPEDENCE READING OHMS 260, POST-LOCAL IMEPEDENCE READING OHMS 463, DURING RF IMPEDENCE READING OHMS [address] LEVEL: : L5, INITIAL POSITIVE SENSORY RESPONSE (50 HZ) 0.1, MOTOR RESPONSE (2HZ- UP TO 3 VOLTS) 3.0, PRE- LOCAL IMPEDENCE READING OHMS 265, POST-LOCAL IMPEDENCE READING OHMS 274, DURING RF IMPEDENCE READING OHMS 242 PRE PROCEDURE DIAGNOSES 1. LUMBAR SPONDYLOSIS. 2. LUMBOSACRAL SPONDYLOSIS POST PROCEDURE DIAGNOSES 1. LUMBAR SPONDYLOSIS. 2. LUMBOSACRAL SPONDYLOSIS PROCEDURE LEFT L4-L5 AND LEFT L5-S1 LUMBAR FACET RADIOFREQUENCY-AVANOS COOLED RF SURGEON DR. BONY ANTOINE CHURN DRILL OPERATOR NONE ANESTHESIA LOCAL PRE PROCEDURE REPORT THE PATIENT HAS HISTORY OF CHRONIC LOW BACK PAIN. I EVALUATED THE PATIENT AND REVIEWED THE CHART. I WENT OVER THE RISKS, ALTERNATIVES, AND BENEFITS ASSOCIATED WITH THIS PROCEDURE. THE PATIENT WOULD LIKE TO PROCEED AND GAVE CONSENT TO PERFORM THE PROCEDURE. THE PATIENT DENIES UNEXPLAINABLE WEIGHT LOSS, FEVER, CHILLS OR NEW CHANGES IN URINARY OR BOWEL CONTROL. THE PATIENT IS COVID-19 NEGATIVE DESCRIPTION OF PROCEDURE THE PATIENT WAS BROUGHT TO THE PROCEDURE ROOM AND PLACED IN THE PRONE POSITION. A TIMEOUT WAS PERFORMED WHERE THE CONSENTED SITE WAS VERIFIED WITH EVERYONE IN THE ROOM. THE LUMBOSACRAL AREA WAS CLEANED WITH CHLORAPREP SOLUTION AND DRAPED ASEPTICALLY. THE PROCEDURE WAS DONE UNDER STERILE CONDITIONS. UNDER FLUOROSCOPIC GUIDANCE, TARGETS WERE SELECTED AT THE INTERSECTION OF THE LEFT TRANSVERSE PROCESS OF L4, L5 AND ALA OF S1 WITH ITS RESPECTIVE SUPERIOR ARTICULAR PROCESS. I CONFIRMED AGAIN THE SITE OF TARGET. LIDOCAINE WAS USED TO NUMB THE SKIN AND THE SUBCUTANEOUS TISSUE BELOW IT. RADIOFREQUENCY CANNULAS, 17-GAUGE, 150 MM LONG WITH 4 MM ACTIVE TIP, WERE ADVANCED UNDER FLUOROSCOPIC GUIDANCE AND FOLLOWING PATIENT FEEDBACK UNTIL THE TARGET AREA WAS REACHED. POSITION OF THE CANNULA WAS VERIFIED WITH AP AND LATERAL VIEWS. AFTER PROPER POSITION OF THE CANNULA WAS ACHIEVED, WE WORKED WITH THE LEFT SELECTED MEDIAN BRANCHES OF L3, L4 AND THE DORSAL RAMI OF L5. WE MEASURED THE CORRESPONDING IMPEDANCES AND MOTOR RESPONSES INDICATED IN THE RADIOFREQUENCY WORK SHEET. POSITION OF THE CANNULA WAS VERIFIED AGAIN WITH AP AND LATERAL VIEWS. LIDOCAINE 1%, 2 ML, WAS INJECTED AT EACH LEVEL. RADIOFREQUENCY WAS DONE AT EACH LEVEL USING THE [employer] SYSTEM-- COOLED RF-- WITH A SETTING AT THE MACHINE OF 60 DEGREES WITH A TARGET TISSUE TEMPERATURE OF 80 TO 90 DEGREES FOR A MINIMUM OF 150 SECONDS. AFTER RADIOFREQUENCY WAS DONE, THE PATIENT RECEIVED BUPIVACAINE 0.125%,1 ML, WITH DEXAMETHASONE 3 MG AT EACH SITE. THERE WAS NO EVIDENCE OF BLOOD, PARESTHESIA OR CEREBROSPINAL FLUID DURING THE PROCEDURE. THE PATIENT WAS SENT TO THE RECOVERY ROOMS. THE PATIENT WAS MOVING THE EXTREMITIES AND DOING WELL. EBL LESS THAN 5 ML. THERE WERE NO COMPLICATIONS DURING THE PROCEDURE. FLUOROSCOPY TIME WAS 1 MINUTE 20 SECONDS POST PROCEDURE NOTE THE PATIENT WILL BE SEEN IN A FOLLOW UP IN THE NEXT FEW WEEKS. INSTRUCTIONS WERE GIVEN, QUESTIONS WERE ANSWERED, AND THE PATIENT EXPRESSED UNDERSTANDING AND AGREES WITH THE PLAN. . I, SELAM VARELA, DOCUMENTED THE ABOVE INFORMATION ACTING A SCRIBE FOR DR. ANTOINE. I HAVE REVIEWED THE ABOVE DOCUMENT, WRITTEN BY FLORESITA GRANDA, AND I VERIFY THAT IT IS ACCURATE PROCEDURE CODES 37720 DESTROY LUMB/[place] J[place] 34033 DESTROY L/S FACET JNT ADDL DISPOSITION & COMMUNICATION FOLLOW UP FOLLOW UP WITH RN RELIEF CHARGE (REASON: POST LEFT LUMBAR COOL RADIOFREQUENCY L4-L5, L5-S1) ELECTRONICALLY SIGNED BY BONY ANTOINE MD, MD ON 02/23/2021 AT 12:34 PM EDT DISCLAIMER : THIS IS A VISIT SUMMARY EXTRACTED FROM THE [employer] CHART. IT IS NOT A COPY OF THE [employer] PROGRESS NOTE. TERESA
== END ==
LOC: M PAIN 14:00
PROVIDERS: ATTEND Anesthesiology
DX: M47.816 Spondylosis without myelopathy or radiculopathy, lumbar region (principal); M47.817 Spondylosis without myelopathy or radiculopathy, lumbosacral region; E11.9 Type 2 diabetes mellitus without complications; G43.909 Migraine, unspecified, not intractable, without status migrainosus; I48.0 Paroxysmal atrial fibrillation; I10 Essential (primary) hypertension; K21.9 Gastro-esophageal reflux disease without esophagitis; E78.00 Pure hypercholesterolemia, unspecified; N40.0 Benign prostatic hyperplasia without lower urinary tract symptoms; N52.9 Male erectile dysfunction, unspecified; K50.90 Crohn's disease, unspecified, without complications; G61.0 Guillain-Barre syndrome; Z79.891 Long term (current) use of opiate analgesic; Z79.82 Long term (current) use of aspirin; Z79.84 Long term (current) use of oral hypoglycemic drugs; Z79.899 Other long term (current) drug therapy; Z91.048 Other nonmedicinal substance allergy status
CPT/HCPCS: 64635; 64636; J1100

== ENCOUNTER → 2021-02-28 | Outpatient (CLI) | payer OTHER ==
[~2021-02-28] MED LIST changes: -BUPIVACAINE HCL 0.25% 30ML VIAL As Ordered ONE; -LIDOCAINE 1% SDV 30ML VIAL As Ordered ONE; -dexameTHASONE 10MG/1ML VIAL PRES.FREE (J1100 PER 1MG) As Ordered ONE; -diazePAM 5MG TABLET As Ordered ONE; -oxyCODONE 5MG TAB As Ordered ONE
== END ==
LOC: M LABSMTC 13:15
PROVIDERS: ATTEND Pediatrics
DX: Z20.822 Contact with and (suspected) exposure to COVID-19 (principal)
CPT/HCPCS: C9803; U0003

== ENCOUNTER 2021-03-12 14:43 | Outpatient (CLI) | payer OTHER ==
[~2021-03-12] VITALS: Ht 177.8 cm; Wt 74.8 kg
[~2021-03-12 14:43] MED LIST changes: +ALBUTEROL SULFATE 2.5 MG/0.5 ML INH NEB SOLN INH PRN; +EPINEPHrine INJ 1 MG/ML 1ML AMP IM PRN; +diphenhydrAMINE 50MG/ML VIAL (J1200) IV PRN; +methylPREDNISolone 125MG 2ML VIAL IV PRN
[2021-03-12 15:00] VITALS: BP 157/82
[2021-03-12] MEDS ORDERED: USTEKINUMAB 390 MG in NS 172 ML IV ONE (15:00)
[2021-03-12 16:00] VITALS: BP 139/74
[2021-03-12 17:00] VITALS: BP 148/81
== END 2021-03-12 17:20 | disposition home or self-care (01) ==
LOC: M INFU 14:43
PROVIDERS: ATTEND Internal Medicine Gastroenterology
DX: K50.00 Crohn's disease of small intestine without complications (principal)
CPT/HCPCS: 96365; J3358

== ENCOUNTER → 2021-03-13 | Outpatient (CLI) | payer OTHER ==
[~2021-03-13] MED LIST changes: -ALBUTEROL SULFATE 2.5 MG/0.5 ML INH NEB SOLN INH PRN; -EPINEPHrine INJ 1 MG/ML 1ML AMP IM PRN; -diphenhydrAMINE 50MG/ML VIAL (J1200) IV PRN; -methylPREDNISolone 125MG 2ML VIAL IV PRN
--- NOTE | 2021-03-15 00:57 | ECWPNPC ---
PATIENT NAME: HAI DAIGLE : 1965 GENDER: MALE VISIT DATE: 03/13/2021 DISCHARGE DATE: 03/13/21919 VISIT LOCKED DATE TIME: PHYSICIAN: BRITT LANCASTER RESOURCE: BRITT LANCASTER REASON FOR APPOINTMENT 1. LEFT LUMBAR COOL RADIOFREQUENCY L4-5,L5-S1 HISTORY OF PRESENT ILLNESS GENERAL: HERE FOR POST PROCEDURE FOLLOW-UP HEAD LEFT LUMBAR COOL RADIOFREQUENCY ON 02/22/2021. REPORTING MARKED REDUCTION IN PAIN THAT CONTINUES TODAY. CONTINUES TO BENEFIT FROM RIGHT SIDED LUMBAR RADIOFREQUENCY DONE ON 01/15/2021. CHIEF AREA OF PAIN IS NECK AND UPPER BACK. PAIN IS AGGRAVATED BY RANGE OF JOINT MOTION OF HIS NECK. HAS RESPONDED WELL TO TRIGGER POINT INJECTIONS IN THIS REGION IN THE PAST. DISCUSSED TREATMENT OPTIONS. -. FALL RISK SCREENING: SCREENING : NO FALLS REPORTED IN THE LAST YEAR. PAIN SCREENING: PATIENT HAS A COMPLAINT OF ACUTE OR CHRONIC PAIN :YES LOCATION OF PAIN:LOW BACK INTENSITY OF PAIN (SCALE OF 1 TO 10):1 WHAT DOES YOUR PAIN FEEL LIKE:ACHING, CONTINOUS DURATION:CONTINOUS, CONSTANT PAIN IS INCREASED BY:ACTIVITIES, OTHERS WORK PAIN IS DECREASED BY:OTHERS HEAT ( HOT TUBE) NURSING NOTE: -. PAIN CENTER INTAKE QUESTIONS: DO YOU HAVE A HISTORY OF MRSA? :NO DO YOU TAKE A BLOOD THINNERS? :NO 81 MG. ASPIRIN DO YOU HAVE ANY BLEEDING DISORDERS? :NO ANY NEW NUMBNESS OR WEAKNESS IN YOUR LEGS OR ARMS? :YES NUMBNESS IN LEGS ANY PACEMAKER,DEFIBRILLATOR, OR DORSAL COLUMN STIMULATOR? :NO DO YOU HAVE ANY RASHES OR OPEN SORES? :NO ARE YOU ALLERGIC TO IV DYE? :NO ARE YOU DIABETIC? :YES ANY NEW PROBLEMS WITH YOUR MEDICATIONS? :NO HAVE YOU RECEIVED A VACCINE IN THE PAST 30 DAYS? :NO DO YOU PLAN TO RECEIVE A VACCINE IN THE NEXT 21 DAYS? :NO DO YOU NEED ANY PRESCRIPTION? :YES TRAZADONE DO YOU TAKE ANY IMMUNOSUPPRESSIVE MEDICATIONS? :YES STELARA IS THERE A CHANCE YOU COULD BE ? :NO ARE YOU BREAST FEEDING? :NO CURRENT MEDICATIONS TAKING ASPIR-81 81 MG TABLET DELAYED RELEASE 1 TABLET ORALLY EVERY OTHER DAY TAKING CITRACAL PLUS 400MG TABLET 2 TABS ORALLY AT BEDTIME TAKING FLECAINIDE ACETATE 50 MG TABLET 1 TABLET ORALLY EVERY 12 HRS TAKING VITAMIN D3 MAXIMUM STRENGTH 5000 UNIT CAPSULE 1 CAPSULE ORALLY DAILY TAKING VITAMIN B-12 500 MCG TABLET 1 TABLET ORALLY SUN, TUES, THURS, SAT TAKING TRULICITY 0.75 MG/0.5ML SOLUTION PEN-INJECTOR SUBCUTANEOUS WEEKLY TAKING METFORMIN HCL 1000 MG TABLET 1 TABLET WITH MEALS ORALLY TWICE DAILY TAKING MAGNESIUM 400 MG CAPSULE 1 CAP ORALLY BID TAKING BISOPROLOL FUMARATE 5 MG TABLET 1 TABLET ORALLY ONCE A DAY TAKING LIPITOR 10 MG TABLET 1 TABLET ORALLY ONCE A DAY TAKING MULTI FOR HIM TABLET 2 TABS ORALLY DAILY TAKING TAMSULOSIN HCL 0.4 MG CAPSULE 1 CAPSULE ONCE A DAY TAKING ZOFRAN 8 MG TABLET 1 TABLET ORALLY Q 8 HOURS NEEDED TAKING LOSARTAN POTASSIUM 25 MG TABLET 1 TABLET ORALLY ONCE A DAY TAKING DICYCLOMINE HCL 20 MG TABLET 1 TABLET NEEDED ORALLY QID TAKING JARDIANCE 10 MG TABLET 1 TABLET ORALLY ONCE A DAY TAKING POTASSIUM CHLORIDE 20 MEQ TABLET EXTENDED RELEASE 1 TABLET WITH FOOD ORALLY ONCE A DAY TAKING GABAPENTIN 300 MG CAPSULE 1 CAPSULE ORALLY BEFORE BEDTIME TAKING TIZANIDINE HCL 2 MG TABLET 1 TABLET NEEDED ORALLY EVERY 8 HRS, NOTES: NONE RECENTLY TAKING CYMBALTA 60 MG CAPSULE DELAYED RELEASE PARTICLES 1 CAPSULE ORALLY BEFORE BEDTIME TAKING PRILOSEC OTC 20 MG TABLET DELAYED RELEASE 1 TABLET 30 MINUTES BEFORE MORNING MEAL ORALLY ONCE A DAY TAKING AMLODIPINE BESYLATE 2.5 MG TABLET 1 TABLET ORALLY ONCE A DAY TAKING SOMA 350 MG TABLET 1 TABLET NEEDED ORALLY FOR SPASMS AND PAIN EVERY 12 HOURS NEEDED MDD2, NOTES: NONE RECENTLY TAKING TRAZODONE HCL 50 MG TABLET 1 TAB ORALLY BEFORE BEDTIME, NOTES: NONE RECENTLY TAKING PERCOCET 5-325 MG TABLET 1 TABLET NEEDED ORALLY EVERY 6 HRS MDD4, NOTES: NONE RECENTLY TAKING STELARA 45 MG/0.5ML SOLUTION DIRECTED SUBCUTANEOUS NOT-TAKING HUMIRA 20 MG/0.4ML PREFILLED SYRINGE KIT DIRECTED SUBCUTANEOUS NOT-TAKING PRILOSEC 40 MG CAPSULE DELAYED RELEASE 1/2 CAPSULE ORALLY ONCE A DAY NOT-TAKING PROBIOTIC 1 CAPSULE 1 CAP ORALLY DAILY NOT-TAKING COLCRYS 0.6 MG TABLET 1 TABLET PRN ORALLY ONCE A DAY NOT-TAKING PREDNISONE 5 MG TABLET 1 TABLET ORALLY ONCE A DAY NOT-TAKING COLESTIPOL HCL 1 GM TABLET 1 TABLET ORALLY BID, NOTES: 08/09/20201999 NOT-TAKING MELATONIN 5 MG TABLET 1 TABLET AT BEDTIME NEEDED WITH FOOD ORALLY ONCE A DAY, NOTES: PRN NOT-TAKING POTASSIUM BICARB & CHLORIDE 20 MEQ PACKET 2 TABS ORALLY TWICE A DAY NOT-TAKING SPIRONOLACTONE 25 MG TABLET 1 TABLET ORALLY ONCE A DAY NOT-TAKING TOPIRAMATE 50 MG TABLET 1 TABLET ORALLY BEFORE BEDTIME NOT-TAKING PERCOCET 5-325 MG TABLET 1 TO 2 TAB ORALLY Q6H PRN MDD 4, NOTES: DUPLICATE NOT-TAKING ENTOCORT EC 3 MG CAPSULE DELAYED RELEASE PARTICLES DIRECTED ORALLY , NOTES: 2 WEEKS MEDICATION LIST REVIEWED AND RECONCILED WITH THE PATIENT PAST MEDICAL HISTORY DIABETES MIGRAINES PAF - INTERMITTENT A-FIB HTN GERD HIGH CHOLESTEROL GUILLAIN BARRE PNEUMONIA ILIEITIS A FIB WITH RVR DIVERTICULITIS BPH ED MULTIPLE GI PROBLEMS CHRON'S ALLERGIES SURGICAL GLUE: RASH, ITCHING - ALLERGY SOCIAL HISTORY GENERAL: TOBACCO USE ARE YOU A:NONSMOKER LATEX QUESTIONNAIRE LATEX ALLERGY : HAVE YOU EVER DEVELOPED ANY TYPE OF REACTION AFTER HANDLING LATEX PRODUCTS SUCH RUBBER GLOVES, CONDOMS, DIAPHRAGMS, BALLOONS, SOCKS, OR UNDERWEAR?NO LATEX ALLERGY : HAVE YOU EVER DEVELOPED ANY TYPE OF REACTION DURING OR AFTER DENTAL APPOINTMENT, VAGINAL/RECTAL EXAMINATION, SURGICAL PROCEDURE, OR ANY OTHER EXPOSURE?NO LATEX RISK : HAVE YOU EVER HAD ANY DIFFICULTY BREATHING OR HIVES AFTER EATING OR HANDLING ANY FRUITS, OR VEGETABLES; SUCH KIWI, BANANAS, STONE FRUITS, OR CHESTNUTSNO LATEX RISK : DO YOU HAVE A PREVIOUS PERSONAL HISTORY OF MORE THAN NINE SURGERIES, SPINA BIFIDA, OR REPEATED CATHERIZATIONS? NO LATEX RISK : ARE YOU FREQUENTLY EXPOSED TO LATEX PRODUCTS IN YOUR OCCUPATION?NO DATE ASKED : 03/13/2021 ALCOHOL USE: NO. ALCOHOL SCREENING DID YOU HAVE A DRINK CONTAINING ALCOHOL IN THE PAST YEAR?YES HOW OFTEN DID YOU HAVE SIX OR MORE DRINKS ON ONE OCCASION IN THE PAST YEAR?NEVER (0 POINTS) HOW MANY DRINKS DID YOU HAVE ON A TYPICAL DAY WHEN YOU WERE DRINKING IN THE PAST YEAR?1 OR 2 (0 POINTS) HOW OFTEN DID YOU HAVE A DRINK CONTAINING ALCOHOL IN THE PAST YEAR?MONTHLY OR LESS (1 POINT) POINTS1 INTERPRETATIONNEGATIVE RECREATIONAL DRUG USE DRUG USE?NO CAFFEINE CAFFEINE USE?YES 1-2 SODA/DAY SEXUAL HX HAD SEX IN THE LAST 12 MONTHS (VAGINAL, ORAL, OR ANAL)?NO HAVE YOU EVER HAD AN STD?NO PROTESTANT PROTESTANT NO MUSLIM BELIEFS THAT WOULD IMPACT HEALTH CARE. 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 EXERCISE: WALKS. MARITAL STATUS: . OTHERS AT HOME: SPOUSE. - PFS REFERRAL NEEDED?NO CLERGY REFERRAL NEEDED?NO PUBLIC HEALTH REFERRAL NEEDED?NO WAS THE PROVIDER NOTIFIED OF ANY PERTINENT INFO?YES N/A HAS THE PATIENT BEEN EDUCATED REGARDING HIS/HER PLAN OF CARE?YES HAS THE PATIENT BEEN EDUCATED REGARDING PAIN, THE RISK FOR PAIN, THE IMPORTANCE OF EFFECTIVE PAIN MANAGEMENT, AND THE PAIN ASSESSMENT PROCESS?YES ADVANCE DIRECTIVE ADVANCE DIRECTIVE DISCUSSED WITH PATIENT:YES HCP ON FILE - , AUDREY DAIGLE [phone] REVIEW OF SYSTEMS CONSTITUTIONAL: ANY RECENT FEVER NO, NO . CHILLS NO, NO . WEIGHT CHANGE OF UNKNOWN REASONS NO, NO . GASTROENTEROLOGY: NEW UNEXPLAINABLE CHANGES IN BOWEL CONTROL NO, NO . CONSTIPATION NO, NO . GENITOURINARY: ANY NEW CHANGE IN BLADDER CONTROL? NO, NO . NEUROLOGY: NEW ONSET DIZZINESS OR NEUROLOGICAL CHANGES NOT MENTIONED NO, NO . NEW NUMBNESS OR PAIN PATTERNS NOT MENTIONED AND PERTINENT TO TODAY'S VISIT NO, NO . CARDIOLOGY: NEW CHEST PRESSURE NO, NO . PATIENT DENIES NO, NO . RESPIRATORY: UNEXPLAINABLE COUGH NO, NO . NEW SHORTNESS OF BREATH NO, NO . VITAL SIGNS WT 171.8 LBS, HT 70 IN, BMI 24.65 INDEX, BP 169/82 MM HG, HR 76 /MIN, RR 18 /MIN, TEMP 97.5 F, OXYGEN SAT % 100%, SAFE IN ENV? (Y/N) YES, NA INITIALS DE 08:46T.QUINN CLARK. EXAMINATION GENERAL EXAMINATION: GENERAL AWAKE,ALERT ,PLEAASANT . PSYCH AFFECT NORMAL . LUNGS: LUNG VALLADARES ARE CLEAR TO AUSCULTATION BILATERALLY. GOOD MOVEMENT OF AIR . HEART: S1, S2 IN A REGULAR RATE AND RHYTHM. NO SIGNIFICANT MURMURS, RUBS OR GALLOPS NOTED . MUSCULOSKELETAL: TRIGGER POINTS: NOTED OVER BILATERAL SHOULDERS. PAIN IN THIS REGION IS AGGRAVATED WITH RANGE OF JOINT MOTION OF THE ARMS.. THORACIC SPINE: TRIGGER POINTS: NOTED OVER UPPER THORACIC PARASPINAL REGION. PAIN IS AGGRAVATED WITH RANGE OF JOINT MOTION OF THE ARMS AND NECK. CERVICAL: TRIGGER POINTS: CERVICAL AND TRAPEZIUS BILAT..PAIN IS AGGREVATED WITH ROJM NECK. ASSESSMENTS MYALGIA, OTHER SITE - M79.18 (PRIMARY) OTHER CHRONIC PAIN - G89.29 TREATMENT MYALGIA, OTHER SITE MEDICATION: OXYCODONE HCL TAB 5MG ORALLY (ORDERED FOR 03/20/2021) MEDICATION: VALIUM TAB 5MG ORALLY (DIAZEPAM) (ORDERED FOR 03/20/2021) NOTES: TRIGGER POINT INJECTIONS BILATERAL NECK,BILATERAL SHOULDERS,BILATERAL THORACIC. WE WILL SCHEDULE THIS IN 4 WEEKS. REVIEWED INCREASED RISK FOR INFECTION WITH USING STEROID WITH STELARA. PATIENT WOULD LIKE TO PROCEED KNOWING INCREASED RISK. THIS IS SCHEDULED 1 WEEK PRIOR TO NEXT INJECTION OF STELERA TO MINIMIZE RISK. PRINTED AND REVIEWED PRE PROCEDURE TEACHING, PATIENT VERBALIZED UNDERSTANDING OF PROCEDURE CODY CLARK. OTHER CHRONIC PAIN PAIN PROCEDURE LOGDATE OF PROCEDURE1PROCEDURE:LEFT LUMBAR COOL RADIOFREQUENCY L4-L5,L5-I0TYVCCR OF PRE SEDATEVALIUM 5MG, OXYCODONE 5MGRESULT:GREATER THAN 80% REDUCTION IN PAIN CONTINUES TODAY PROCEDURE CODES FA211 ESTABILISHED PATIENT [facility] CHARGE DISPOSITION & COMMUNICATION FOLLOW UP POST PROCEDURE.SCHEDULE TPI IN 4 WEEKS (REASON: TRIGGER POINT INJECTIONS BILATERAL NECK,BILATERAL SHOULDERS,BILATERAL THORACIC) ELECTRONICALLY SIGNED BY MARTÍN GOLDBERG ON 03/14/2021 AT 01:34 PM EDT DISCLAIMER : THIS IS A VISIT SUMMARY EXTRACTED FROM THE [employer] CHART. IT IS NOT A COPY OF THE [employer] PROGRESS NOTE. TERESA
== END ==
LOC: M PAIN 09:00
PROVIDERS: ATTEND Nurse Practitioner Family
DX: G89.29 Other chronic pain (principal); M79.18 Myalgia, other site; E11.9 Type 2 diabetes mellitus without complications; G43.909 Migraine, unspecified, not intractable, without status migrainosus; I48.0 Paroxysmal atrial fibrillation; I10 Essential (primary) hypertension; K21.9 Gastro-esophageal reflux disease without esophagitis; E78.00 Pure hypercholesterolemia, unspecified; G61.0 Guillain-Barre syndrome; N40.0 Benign prostatic hyperplasia without lower urinary tract symptoms; K50.90 Crohn's disease, unspecified, without complications; N52.9 Male erectile dysfunction, unspecified; Z79.82 Long term (current) use of aspirin; Z79.84 Long term (current) use of oral hypoglycemic drugs; Z79.899 Other long term (current) drug therapy; Z79.891 Long term (current) use of opiate analgesic; Z91.048 Other nonmedicinal substance allergy status

== ENCOUNTER → 2021-04-05 | Outpatient (CLI) | payer OTHER ==
[~2021-04-05] MED LIST changes: +GABA-283 PO; -GABA-845 PO
== END ==
LOC: M LABSMTC 09:37
PROVIDERS: ATTEND Anesthesiology
DX: Z20.822 Contact with and (suspected) exposure to COVID-19 (principal)

== ENCOUNTER → 2021-04-10 | Outpatient (CLI) | payer OTHER ==
[~2021-04-10] MED LIST changes: +BUPIVACAINE HCL 0.25% 10ML VIAL As Ordered ONE; +BUPIVACAINE HCL 0.25% 30ML VIAL As Ordered ONE; +TRIAMCINOLONE ACETONIDE SUSP 40 MG/ML VIAL (J3301) As Ordered ONE; +diazePAM 5MG TABLET As Ordered ONE; +oxyCODONE 5MG TAB As Ordered ONE
--- NOTE | 2021-04-11 02:09 | ECWPNPC ---
PATIENT NAME: HAI DAIGLE : 1965 GENDER: MALE VISIT DATE: 04/10/2021 DISCHARGE DATE: 04/10/21 1027 VISIT LOCKED DATE TIME: PHYSICIAN: BONY ANTOINE MD RESOURCE: BONY ANTOINE MD REASON FOR APPOINTMENT 1. TRIGGER POINT INJECTIONS BILATERAL NECK,BILATERAL SHOULDERS,BILATERAL THORACIC HISTORY OF PRESENT ILLNESS GENERAL: -. FALL RISK SCREENING: SCREENING : NO FALLS REPORTED IN THE LAST YEAR. PAIN SCREENING: PATIENT HAS A COMPLAINT OF ACUTE OR CHRONIC PAIN :YES LOCATION OF PAIN:HEAD, NECK, LEFT SHOULDER, RIGHT SHOULDER, UPPER BACK INTENSITY OF PAIN (SCALE OF 1 TO 10):8 WHAT DOES YOUR PAIN FEEL LIKE:CONTINOUS, TENDER, SORE, ACHING NURSING NOTE: -. PAIN CENTER INTAKE QUESTIONS: DO YOU HAVE A HISTORY OF MRSA? :NO DO YOU TAKE A BLOOD THINNERS? :NO DO YOU HAVE ANY BLEEDING DISORDERS? :NO ANY NEW NUMBNESS OR WEAKNESS IN YOUR LEGS OR ARMS? :NO ANY PACEMAKER,DEFIBRILLATOR, OR DORSAL COLUMN STIMULATOR? :NO DO YOU HAVE ANY RASHES OR OPEN SORES? :NO ARE YOU ALLERGIC TO IV DYE? :NO ARE YOU DIABETIC? :YES ANY NEW PROBLEMS WITH YOUR MEDICATIONS? :NO HAVE YOU RECEIVED A VACCINE IN THE PAST 30 DAYS? :NO DO YOU PLAN TO RECEIVE A VACCINE IN THE NEXT 21 DAYS? :NO DO YOU TAKE ANY IMMUNOSUPPRESSIVE MEDICATIONS? :YES ANY HISTORY OF SEIZURES? :NO ANY HISTORY OF CARDIAC ISSUES OR EVENTS? :NO DO YOU HAVE ANY KIDNEY OR LIVER DISEASE? :NO DO YOU HAVE SLEEP APNEA? :NO ANY RECENT HEAD INJURY? :NO DO YOU HAVE ANY NEW INFECTIONS? :NO IS THERE A CHANCE YOU COULD BE ? :NO ARE YOU BREAST FEEDING? :NO WHEN DID YOU LAST EAT? : 04/09/21 9PM WHEN DID YOU LAST DRINK? : 04/10/21 0600 WHAT DID YOU LAST DRINK? : WATER NAME OF PERSON DRIVING YOU HOME? : -MADDY DO YOU HAVE ANY OTHER QUESTIONS OR CONCERNS? : - CURRENT MEDICATIONS TAKING PERCOCET 5-325 MG TABLET 1 TO 2 TAB ORALLY Q6H PRN MDD 4, NOTES: 04/08/21 TAKING ASPIR-81 81 MG TABLET DELAYED RELEASE 1 TABLET ORALLY EVERY OTHER DAY TAKING CITRACAL PLUS 400MG TABLET 2 TABS ORALLY AT BEDTIME TAKING FLECAINIDE ACETATE 50 MG TABLET 1 TABLET ORALLY EVERY 12 HRS TAKING VITAMIN D3 MAXIMUM STRENGTH 5000 UNIT CAPSULE 1 CAPSULE ORALLY DAILY TAKING VITAMIN B-12 500 MCG TABLET 1 TABLET ORALLY SUN, TUES, THURS, SAT TAKING TRULICITY 0.75 MG/0.5ML SOLUTION PEN-INJECTOR SUBCUTANEOUS WEEKLY, NOTES: 04/07/21 TAKING METFORMIN HCL 1000 MG TABLET 1 TABLET WITH MEALS ORALLY TWICE DAILY, NOTES: 04/09/21 TAKING MAGNESIUM 400 MG CAPSULE 1 CAP ORALLY BID TAKING BISOPROLOL FUMARATE 5 MG TABLET 1 TABLET ORALLY ONCE A DAY TAKING LIPITOR 10 MG TABLET 1 TABLET ORALLY ONCE A DAY TAKING MULTI FOR HIM TABLET 2 TABS ORALLY DAILY TAKING TAMSULOSIN HCL 0.4 MG CAPSULE 1 CAPSULE ONCE A DAY TAKING ZOFRAN 8 MG TABLET 1 TABLET ORALLY Q 8 HOURS NEEDED TAKING LOSARTAN POTASSIUM 25 MG TABLET 1 TABLET ORALLY ONCE A DAY TAKING DICYCLOMINE HCL 20 MG TABLET 1 TABLET NEEDED ORALLY QID, NOTES: OFF RIGHT NOW TAKING JARDIANCE 10 MG TABLET 1 TABLET ORALLY ONCE A DAY, NOTES: 04/09/21 TAKING POTASSIUM CHLORIDE 20 MEQ TABLET EXTENDED RELEASE 1 TABLET WITH FOOD ORALLY ONCE A DAY TAKING GABAPENTIN 300 MG CAPSULE 1 CAPSULE ORALLY BEFORE BEDTIME TAKING TIZANIDINE HCL 2 MG TABLET 1 TABLET NEEDED ORALLY EVERY 8 HRS, NOTES: NONE RECENTLY TAKING CYMBALTA 60 MG CAPSULE DELAYED RELEASE PARTICLES 1 CAPSULE ORALLY BEFORE BEDTIME TAKING PRILOSEC OTC 20 MG TABLET DELAYED RELEASE 1 TABLET 30 MINUTES BEFORE MORNING MEAL ORALLY ONCE A DAY TAKING AMLODIPINE BESYLATE 2.5 MG TABLET 1 TABLET ORALLY ONCE A DAY, NOTES: 04/10/21 AM TAKING TRAZODONE HCL 50 MG TABLET 1 TAB ORALLY BEFORE BEDTIME, NOTES: NONE RECENTLY TAKING STELARA 45 MG/0.5ML SOLUTION DIRECTED SUBCUTANEOUS , NOTES: LAST MONTH TAKING CARISOPRODOL 350 MG TABLET 1 TABLET NEEDED ORALLY BID MDD2, NOTES: 04/09/21 TAKING PRILOSEC 40 MG CAPSULE DELAYED RELEASE 1/2 CAPSULE ORALLY ONCE A DAY TAKING PROBIOTIC 1 CAPSULE 1 CAP ORALLY DAILY TAKING COLCRYS 0.6 MG TABLET 1 TABLET PRN ORALLY ONCE A DAY, NOTES: AT TIMES TAKING COLESTIPOL HCL 1 GM TABLET 1 TABLET ORALLY BID, NOTES: 08/09/20201999 TAKING SPIRONOLACTONE 25 MG TABLET 1 TABLET ORALLY ONCE A DAY, NOTES: ? TAKING TOPIRAMATE 50 MG TABLET 1 TABLET ORALLY BEFORE BEDTIME TAKING ENTOCORT EC 3 MG CAPSULE DELAYED RELEASE PARTICLES DIRECTED ORALLY , NOTES: 2 WEEKS NOT-TAKING POTASSIUM BICARB & CHLORIDE 20 MEQ PACKET 2 TABS ORALLY TWICE A DAY NOT-TAKING PERCOCET 5-325 MG TABLET 1 TABLET NEEDED ORALLY EVERY 6 HRS MDD4, NOTES: NONE RECENTLY NOT-TAKING HUMIRA 20 MG/0.4ML PREFILLED SYRINGE KIT DIRECTED SUBCUTANEOUS NOT-TAKING PREDNISONE 5 MG TABLET 1 TABLET ORALLY ONCE A DAY NOT-TAKING MELATONIN 5 MG TABLET 1 TABLET AT BEDTIME NEEDED WITH FOOD ORALLY ONCE A DAY, NOTES: PRN MEDICATION LIST REVIEWED AND RECONCILED WITH THE PATIENT PAST MEDICAL HISTORY DIABETES MIGRAINES PAF - INTERMITTENT A-FIB HTN GERD HIGH CHOLESTEROL GUILLAIN BARRE PNEUMONIA ILIEITIS A FIB WITH RVR DIVERTICULITIS BPH ED MULTIPLE GI PROBLEMS CHRON'S ALLERGIES SURGICAL GLUE: RASH, ITCHING - ALLERGY SOCIAL HISTORY GENERAL: TOBACCO USE ARE YOU A:NONSMOKER LATEX QUESTIONNAIRE LATEX ALLERGY : HAVE YOU EVER DEVELOPED ANY TYPE OF REACTION AFTER HANDLING LATEX PRODUCTS SUCH RUBBER GLOVES, CONDOMS, DIAPHRAGMS, BALLOONS, SOCKS, OR UNDERWEAR?NO LATEX ALLERGY : HAVE YOU EVER DEVELOPED ANY TYPE OF REACTION DURING OR AFTER DENTAL APPOINTMENT, VAGINAL/RECTAL EXAMINATION, SURGICAL PROCEDURE, OR ANY OTHER EXPOSURE?NO DATE ASKED : 03/13/2021 LATEX RISK : HAVE YOU EVER HAD ANY DIFFICULTY BREATHING OR HIVES AFTER EATING OR HANDLING ANY FRUITS, OR VEGETABLES; SUCH KIWI, BANANAS, STONE FRUITS, OR CHESTNUTSNO LATEX RISK : DO YOU HAVE A PREVIOUS PERSONAL HISTORY OF MORE THAN NINE SURGERIES, SPINA BIFIDA, OR REPEATED CATHERIZATIONS? NO LATEX RISK : ARE YOU FREQUENTLY EXPOSED TO LATEX PRODUCTS IN YOUR OCCUPATION?NO ALCOHOL USE: NO. ALCOHOL SCREENING DID YOU HAVE A DRINK CONTAINING ALCOHOL IN THE PAST YEAR?YES HOW OFTEN DID YOU HAVE SIX OR MORE DRINKS ON ONE OCCASION IN THE PAST YEAR?NEVER (0 POINTS) HOW MANY DRINKS DID YOU HAVE ON A TYPICAL DAY WHEN YOU WERE DRINKING IN THE PAST YEAR?1 OR 2 (0 POINTS) HOW OFTEN DID YOU HAVE A DRINK CONTAINING ALCOHOL IN THE PAST YEAR?MONTHLY OR LESS (1 POINT) POINTS1 INTERPRETATIONNEGATIVE RECREATIONAL DRUG USE DRUG USE?NO CAFFEINE CAFFEINE USE?YES 1-2 SODA/DAY SEXUAL HX HAD SEX IN THE LAST 12 MONTHS (VAGINAL, ORAL, OR ANAL)?NO HAVE YOU EVER HAD AN STD?NO VOODOO VOODOO NO YAZDANISM BELIEFS THAT WOULD IMPACT HEALTH CARE. 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 EXERCISE: WALKS. MARITAL STATUS: . OTHERS AT HOME: SPOUSE. - PFS REFERRAL NEEDED?NO CLERGY REFERRAL NEEDED?NO PUBLIC HEALTH REFERRAL NEEDED?NO WAS THE PROVIDER NOTIFIED OF ANY PERTINENT INFO?YES N/A HAS THE PATIENT BEEN EDUCATED REGARDING HIS/HER PLAN OF CARE?YES HAS THE PATIENT BEEN EDUCATED REGARDING PAIN, THE RISK FOR PAIN, THE IMPORTANCE OF EFFECTIVE PAIN MANAGEMENT, AND THE PAIN ASSESSMENT PROCESS?YES ADVANCE DIRECTIVE ADVANCE DIRECTIVE DISCUSSED WITH PATIENT:YES HCP ON FILE - , AUDREY DAIGLE [phone] VITAL SIGNS WT 167.8 LBS, HT 70 IN, BMI 24.07 INDEX, BP 121/79 MM HG, HR 66 /MIN, RR 18 /MIN, TEMP 98.7 F, OXYGEN SAT % 99%, BLOOD GLUCOSE LEVEL 102, SAFE IN ENV? (Y/N) Y, NA INITIALS AW 0848, REVIEWED BY: EM 102 BY PT @ [facility] IN AM. EM. EXAMINATION GENERAL: A HISTORY AND PHYSICAL EXAM ON THE PATIENT WAS DONE ON 03/13/2021 (DATE OF ORIGINAL ASSESSMENT) IN PREPARATION OF SURGERY/PROCEDURE. I HAVE NOW REASSESSED THIS PATIENT'S HEALTH STATUS AND PERFORMED AN UPDATED EXAM TODAY. ALL CHANGES IN THE PATIENT'S HISTORY, PHYSICAL EXAM, PRE-EXISTING CONDITONS, AND INDICATIONS/CONTRAINDICATIONS TO THE PLANNED PROCEDURE AND ANESTHESIA ARE DOCUMENTED AND EVALUATED BELOW. I ATTEST TO THE ADEQUACY AND APPROPRIATENESS OF MY ASSESSMENT, AND CONFIRM THE NECESSITY FOR THE PLANNED PROCEDURE. THE PATIENT IS ALERT, ORIENTED TIMES THREE AND COOPERATIVE. LUNGS ARE CLEAR TO AUSCULTATION. HEART SHOWS REGULAR RHYTHM, NO MURMURS AND NO GALLOPS. ASSESSMENTS MYALGIA, OTHER SITE - M79.18 (PRIMARY) TREATMENT MYALGIA, OTHER SITE COMPLETION OF PROCEDURAL VISIT WHEN MEETS CRITERIATIAN ASH 04/10/2021 11:59:35 AM > CRITERIA MET @ 1026 MEDICATION: VALIUM TAB 5MG ORALLY (DIAZEPAM)CHRISTINA COHEN 04/10/2021 9:09:18 AM > VERIFIED TIAN ASH 04/10/2021 9:14:23 AM > ADMINISTERED @0912. MEDICATION: OXYCODONE HCL TAB 5MG ORALLY VICKICHRISTINA 04/10/2021 9:09:32 AM > VERIFIED TIAN ASH 04/10/2021 9:14:44 AM > ADMINISTERED @ 0912. PROCEDURES PAIN NURSING RECORD PROCEDURE IN ROOM 0900, PHYSICIAN IN ROOM 1000, START 1005, FINISH 1008, PHYSICIAN OUT OF ROOM 1009, OUT OF ROOM 1026, ECG N/A, PATIENT SHIELDED N/A, SAFETY STRAP N/A, PREP ALCOHOL DR. ANTOINE, DRESSING TEGADERM Jovana ASH RN LOC: 1. ALERT, ORIENTED, TIAN ASH 04/10/2021 10:05:30 AM > RESP: 1. REGULAR, NO DYSPNEA, TIAN ASH 04/10/2021 10:05:34 AM > COLOR: 1. PINK, TIAN ASH 04/10/2021 10:05:37 AM > SKIN: 1. WARM, DRY, TIAN ASH 04/10/2021 10:05:42 AM > POSITION: PT WAS GIVEN PRE SEDATE, DR ANTOINE IS BUSY IN ANOTHER PROCEDURE, PT RESTING ON BED WITH RAILS UP AND CALL CHEN IN REACH UNTIL DR ANTOINE IS READY. TIAN ASH 04/10/2021 9:47:13 AM > TIAN ASH 04/10/2021 10:06:05 AM > , SITTING VITALS: 119/72, 71, 16, 98%, TIAN ASH 04/10/2021 10:21:48 AM > NOTES Jovana ASH RN COMPLETION OF PROCEDURE APPOINTMENT: POST PAIN 0, DRESSING SITE DRY AND INTACT, IV N/A, GAIT STEADY, TEACHING COMPLETED, PATIENT ACKNOWLEDGES UNDERSTANDING YES, PROCEDURE APPOINTMENT COMPLETED AT 1026 PN TRIGGER POINT INJECTION WITH STEROIDS PRE PROCEDURE DIAGNOSIS 1. MYALGIA 2. PAIN AT BILATERAL NECK AREA, BILATERAL SHOULDER AREA AND BILATERAL THORACIC AREA POST PROCEDURE DIAGNOSIS 1. MYALGIA 2. PAIN AT BILATERAL NECK AREA, BILATERAL SHOULDER AREA AND BILATERAL THORACIC AREA PROCEDURE TRIGGER POINT INJECTION AT BILATERAL NECK AREA, BILATERAL SHOULDER AREA AND BILATERAL THORACIC AREA SURGEON DR. BONY ANTOINE GLOBAL RECRUITER NONE ANESTHESIA LOCAL PRE PROCEDURE NOTE THE PATIENT HAS A HISTORY OF CHRONIC PAIN AT THE RIGHT AND LEFT NECK AREA, RIGHT AND LEFT SHOULDER AREA AND RIGHT AND LEFT THORACIC AREA. I EVALUATED THE PATIENT AND REVIEWED THE CHART. THERE IS EVIDENCE OF BANDS OF TISSUE WITH RESTRICTION OF MOVEMENT AND PRESENCE OF TRIGGER POINT AT THE RIGHT AND LEFT NECK AREA, RIGHT AND LEFT SHOULDER AREA AND RIGHT AND LEFT THORACIC AREA. I WENT OVER THE RISKS, ALTERNATIVES, AND BENEFITS ASSOCIATED WITH THIS PROCEDURE. THE PATIENT WOULD LIKE TO PROCEED AND GIVE CONSENT TO PERFORMED THE PROCEDURE. THE PATIENT DENIES UNEXPLAINABLE WEIGHT LOSS, FEVER, CHILLS, OR NEW CHANGES IN URINARY OR BOWEL CONTROL. THE PATIENT IS COVID-19 NEGATIVE DESCRIPTION OF PROCEDURE THE PATIENT WAS BROUGHT TO THE PROCEDURE ROOM AND PLACED IN THE SITTING POSITION. THE AREA WAS CLEANED WITH ALCOHOL. THE PROCEDURE WAS DONE USING ASEPTIC STERILE TECHNIQUE. A TIMEOUT WAS PERFORMED WHERE THE CONSENTED SITE WAS VERIFIED WITH EVERYONE IN THE ROOM. USING A 25-GAUGE NEEDLE, TRIGGER POINTS WERE INJECTED AT THE RIGHT AND LEFT NECK AREA, RIGHT AND LEFT SHOULDER AREA AND RIGHT AND LEFT THORACIC AREA WITH A TOTAL OF 40 ML OF BUPIVACAINE 0.25% AND KENALOG 40 MG. THE MEDICATIONS WERE VERIFIED WITH THE NURSE. THERE WAS NO EVIDENCE OF BLOOD OR PARESTHESIA DURING THE PROCEDURE. THE PATIENT WAS SENT TO THE RECOVERY ROOM. THE PATIENT WAS MOVING THE EXTREMITIES AND DOING WELL. THERE WERE NO COMPLICATIONS DURING THE PROCEDURE. ESTIMATED BLOOD LOSS WAS LESS THAN 5 ML POST PROCEDURE NOTE THE PROCEDURE DONE WAS DISCUSSED WITH THE PATIENT. THE PATIENT WILL BE SEEN IN A FOLLOW UP IN THE NEXT FEW WEEKS. I AM LOOKING FOR LONG LASTING PAIN RELIEF FOR THE PATIENT WITH THIS INTERVENTION. INSTRUCTIONS WERE GIVEN, QUESTIONS WERE ANSWERED, AND THE PATIENT EXPRESSED UNDERSTANDING AND AGREES WITH THE PLAN. I, SELAM VARELA, DOCUMENTED THE ABOVE INFORMATION ACTING A SCRIBE FOR DR. ANTOINE. I HAVE REVIEWED THE ABOVE DOCUMENT, WRITTEN BY SELAM VARELA, [employer]SE F[employer] MANAGER, AND I VERIFY THAT IT IS ACCURATE . PROCEDURE CODES 28786 INJECT TRIGGER POINTS 3/> DISPOSITION & COMMUNICATION FOLLOW UP FOLLOW UP WITH VENETIAN BLIND WORKER (REASON: POST TRIGGER POINT INJECTIONS BILATERAL NECK, BILATERAL SHOULDER, BILATERAL THORACIC) ELECTRONICALLY SIGNED BY BONY ANTOINE MD, MD ON 04/10/2021 AT 12:41 PM EDT DISCLAIMER : THIS IS A VISIT SUMMARY EXTRACTED FROM THE [facility] CHART. IT IS NOT A COPY OF THE [facility] PROGRESS NOTE. TERESA
== END ==
LOC: M PAIN 08:30
PROVIDERS: ATTEND Anesthesiology
DX: M79.18 Myalgia, other site (principal); E11.9 Type 2 diabetes mellitus without complications; G43.909 Migraine, unspecified, not intractable, without status migrainosus; I48.0 Paroxysmal atrial fibrillation; I10 Essential (primary) hypertension; K21.9 Gastro-esophageal reflux disease without esophagitis; E78.00 Pure hypercholesterolemia, unspecified; K50.90 Crohn's disease, unspecified, without complications; N40.0 Benign prostatic hyperplasia without lower urinary tract symptoms; N52.9 Male erectile dysfunction, unspecified; Z79.891 Long term (current) use of opiate analgesic; Z79.82 Long term (current) use of aspirin; Z79.84 Long term (current) use of oral hypoglycemic drugs; Z79.899 Other long term (current) drug therapy; Z91.048 Other nonmedicinal substance allergy status
CPT/HCPCS: 20553; J3301

== ENCOUNTER 2021-04-30 09:48 | Emergency (ER) | payer OTHER ==
[~2021-04-30] VITALS: Ht 177.8 cm; Wt 76.8 kg
[2021-04-30] MEDS ORDERED: MORPHINE 2 MG/ML 1ML VIAL (J2270) IV ONE (10:20)
[2021-04-30] MEDS ORDERED: ONDANSETRON 4MG/2ML VIAL IV ONE (10:20)
[2021-04-30] MEDS ORDERED: METOCLOPRAMIDE INJ 10MG/2ML VIAL (J2765 PER 1) IV ONE (10:30)
--- NOTE | 2021-04-30 10:33 | REP ---
INDICATION: CVA. COMPARISON: 10/11/2020 TECHNIQUE: Portable FINDINGS: The technique utilized in obtaining the radiograph has magnified the cardiac silhouette and accentuated the interstitial markings. The superior mediastinal structures are midline. The cardiac silhouette is unremarkable in size, shape, and position. The diaphragmatic surfaces of the lungs are regular, and the costophrenic angles are clear. The pulmonary patel are clear. The imaged osseous structures are intact. IMPRESSION: There is no acute cardiopulmonary disease. No significant change <Electronically signed by Jay Iqbal > 04/30/21 1021
[2021-04-30] MEDS ORDERED: ISOVUE-370 76% 100ML VIAL As Ordered ONE (10:46)
[2021-04-30 10:57] LABS: BASO % 0.4 % (0.0-1.0); EOS # 0.1 10^3/uL (0.0-0.5); EOS % 2.5 % (0.0-3.0); HEMATOCRIT 43.9 % (42.0-52.0); HEMOGLOBIN 14.4 g/dl (13.5-17.5); LYMPH # 1.1 10^3/uL (1.5-5.0); LYMPH % 25.4 % (24.0-44.0); MEAN CORPUSCULAR HEMOGLOBIN 29.8 pg (27.0-33.0); MEAN CORPUSCULAR HGB CONC 32.8 g/dl (32.0-36.5); MEAN CORPUSCULAR VOLUME 90.7 fl (80.0-96.0); MONO # 0.4 10^3/uL (0.0-0.8); MONO % 8.7 % (2.0-8.0); NEUTROPHILS # 2.8 10^3/uL (1.5-8.5); NEUTROPHILS % 62.8 % (36.0-66.0); PLATELET COUNT, AUTOMATED 169 10^3/uL (150-450); RED BLOOD COUNT 4.84 10^6/uL (4.30-6.10); WHITE BLOOD COUNT 4.5 10^3/uL (4.0-10.0)
--- NOTE | 2021-04-30 11:14 | REP ---
INDICATION: CVA - Nursing interventions must not delay CT. COMPARISON: 06/14/2020 TECHNIQUE: 4.5 mm contiguous transaxial sections were obtained from the skull base to the cerebral convexities with thin cuts through the posterior fossa without the administration of intravenous contrast. FINDINGS: The ventricles and sulci are consistent with the patient's age. There are no extra-axial fluid collections. There is no mass effect. The deep cerebral white matter is consistent with the patient's age. The orbital and petrous structures, cerebellopontine angles, and posterior fossa are unremarkable. The sella turcica, cavernous, and paracavernous structures are essentially unremarkable. The visualized portions of the paranasal sinuses and mastoid air cells are unchanged. Images of the skull base show no gross abnormality. IMPRESSION: No acute abnormality or significant change compared to the prior exam. <Electronically signed by Jay Iqbal > 04/30/21 [id number]
--- NOTE | 2021-04-30 11:19 | REPVR ---
PROCEDURE INFORMATION: Exam: CT Angiography Head With Contrast, Arteriography Exam date and time: 04/30/2021 11:03 AM Age: 55 years old Clinical indication: Weakness; Additional info: CVA - nursing interventions must not delay CT TECHNIQUE: Imaging protocol: Computed tomography angiography of the head with contrast. Exam focused on the arteries. 3D rendering (Not supervised by radiologist): MIP and/or 3D reconstructed images were created by the technologist. Radiation optimization: All CT scans at this facility use at least one of these dose optimization techniques: automated exposure control; mA and/or kV adjustment per patient size (includes targeted exams where dose is matched to clinical indication); or iterative reconstruction. Contrast material: ISOVUE 370; Contrast volume: 100 ml; Contrast route: INTRAVENOUS (IV); COMPARISON: MRA BRAIN W/O CONTRAST 06/14/2020 1:55 PM FINDINGS: ANTERIOR CIRCULATION: Right internal carotid artery: Unremarkable. Intracranial segment is patent with no significant stenosis. No aneurysm. Right middle cerebral artery: Unremarkable. No occlusion or significant stenosis. No aneurysm. Right anterior cerebral artery: Unremarkable. No occlusion or significant stenosis. No aneurysm. Left internal carotid artery: Unremarkable. Intracranial segment is patent with no significant stenosis. No aneurysm. Left middle cerebral artery: Unremarkable. No occlusion or significant stenosis. No aneurysm. Left anterior cerebral artery: Unremarkable. No occlusion or significant stenosis. No aneurysm. POSTERIOR CIRCULATION: Right vertebral artery: Unremarkable. No occlusion or significant stenosis. No aneurysm. Left vertebral artery: Unremarkable. No occlusion or significant stenosis. No aneurysm. Basilar artery: Unremarkable. No occlusion or significant stenosis. No aneurysm. Right posterior cerebral artery: Unremarkable. No occlusion or significant stenosis. No aneurysm. Left posterior cerebral artery: Unremarkable. No occlusion or significant stenosis. No aneurysm. Brain: There is no evidence of intracranial large vessel occlusion. Cerebral ventricles: No ventriculomegaly. Bones/joints: Unremarkable. No acute fracture. Soft tissues: Unremarkable. IMPRESSION: 1. There are codominant vertebral arteries with no stenosis or dissection. 2. There is no evidence of intracranial large vessel occlusion. Electronically signed by: Jozef Mora On 04/30/2021 11:19:26 AM
--- NOTE | 2021-04-30 11:24 | REPVR ---
PROCEDURE INFORMATION: Exam: CT Angiography Neck With Contrast Exam date and time: 04/30/2021 11:03 AM Age: 55 years old Clinical indication: Weakness; Additional info: CVA - nursing interventions must not delay CT TECHNIQUE: Imaging protocol: Computed tomography angiography of the neck with contrast. 3D rendering (Not supervised by radiologist): MIP and/or 3D reconstructed images were created by the technologist. Radiation optimization: All CT scans at this facility use at least one of these dose optimization techniques: automated exposure control; mA and/or kV adjustment per patient size (includes targeted exams where dose is matched to clinical indication); or iterative reconstruction. Contrast material: ISOVUE 370; Contrast volume: 100 ml; Contrast route: INTRAVENOUS (IV); COMPARISON: CT ANGIO NECK 06/14/2020 11:32 AM FINDINGS: Right common carotid artery: No stenosis. No dissection or occlusion. Right internal carotid artery: No stenosis of the extracranial segment. No dissection or occlusion. Right external carotid artery: No occlusion or stenosis of the origin. Left common carotid artery: No stenosis. No dissection or occlusion. Left internal carotid artery: No stenosis of the extracranial segment. No dissection or occlusion. Left external carotid artery: No occlusion or stenosis of the origin. Right vertebral artery: No stenosis. No dissection or occlusion. Left vertebral artery: No stenosis. No dissection or occlusion. Thyroid: The thyroid gland is normal. Dental: The patient is edentulous. Soft tissues: Normal. No significant soft tissue swelling. Bones/joints: The spine demonstrates mild degenerative changes at multiple levels. Lungs: The visualized portions of the lung apices are normal. IMPRESSION: 1. There are codominant vertebral arteries with no stenosis or dissection. 2. There is no evidence of brachiocephalic arterial pathology. REFERENCES: NASCET CRITERIA. The degree of internal carotid artery stenosis is based on NASCET criteria. Normal is no stenosis. Mild is less than 50% stenosis. Moderate is 50-69% stenosis. Severe is 70% to 99% stenosis. Total occlusion is no detectable patent lumen. Electronically signed by: Jozef Mora On 04/30/2021 11:24:12 AM
[2021-04-30 11:26] LABS: TROPONIN I 0.03 NG/ML (< 0.10)
[2021-04-30 13:49] VITALS: BP 146/82
--- NOTE | 2021-04-30 15:35 | ECGEPIP ---
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
== END 2021-04-30 13:59 | disposition home or self-care (01) ==
LOC: M ED 09:48
DX: G44.59 Other complicated headache syndrome (principal); I10 Essential (primary) hypertension; E11.9 Type 2 diabetes mellitus without complications; E78.9 Disorder of lipoprotein metabolism, unspecified; G47.30 Sleep apnea, unspecified; K21.9 Gastro-esophageal reflux disease without esophagitis; Z88.7 Allergy status to serum and vaccine; Z79.899 Other long term (current) drug therapy; Z79.82 Long term (current) use of aspirin; Z79.84 Long term (current) use of oral hypoglycemic drugs
CPT/HCPCS: 70450; 70496; 70498; 71045; 80047; 82550; 82553; 84484; 85025; 85730; 93005; 93041; 94760; 96374; 96375; 99285; J2270; J2765; Q9967

== ENCOUNTER → 2021-04-30 | Outpatient (CLI) | payer OTHER ==
[~2021-04-30] MED LIST changes: -BUPIVACAINE HCL 0.25% 10ML VIAL As Ordered ONE; -BUPIVACAINE HCL 0.25% 30ML VIAL As Ordered ONE; +OMEP40CA4 PO; -OMEP40CA97 PO; -TRIAMCINOLONE ACETONIDE SUSP 40 MG/ML VIAL (J3301) As Ordered ONE; -diazePAM 5MG TABLET As Ordered ONE; -oxyCODONE 5MG TAB As Ordered ONE
--- NOTE | 2021-05-02 00:21 | ECWPNPC ---
PATIENT NAME: HAI DAIGLE : 1965 GENDER: MALE VISIT DATE: 04/30/2021 DISCHARGE DATE: 04/30/21 0000 VISIT LOCKED DATE TIME: PHYSICIAN: BRITT LANCASTER RESOURCE: BRITT LANCASTER REASON FOR APPOINTMENT 1. POST TRIGGER POINT INJECTIONS BILATERAL NECK,BILATERAL SHOULDERS,BILATERAL THORACIC HISTORY OF PRESENT ILLNESS GENERAL: HERE FOR POST PROCEDURE F/U.HAD TPI BILATERAL NECK,SHOULDERS AND THORACIC AT HIS LAST VISIT.REPORTS SIGNIFICANT REDUCTION IN PAIN THAT CONTINUES TODAY.HAVING SEVERE HEADAHE TODAY AND BLOOD PRESSURE IS SEVERELY ELEVATED.COMPLAINING OF DIZZINESS.ALSO STATES HE RECENTLY WAS DIAGNOSED WITH BLEEDING BEHIND HIS EYES OVER THE WEEKEND.STATES HE BEGAN TO FEEL BAD WALKING INTO CLINIC TODAY.CONTINUES TO HAVE SEVERE CHRONIC NECK PAIN THAT RADIATES INTO HEADACHE.REVIED MRI OF CERVICAL SPINE AND DISCUSSED TRATMENT OPTIONS WITH HIS OVER THE PHONE.HE WILL BE ESCORTED TO ER FOR EVALUATION OF SEVERE HEADACHE AND ELEVATED BLOOD PRESSURE NOW.HE DENIES CHEST PAIN.HE IS COMPLAINING OF SWEATING AND GENERALIZED MALAISE.DENIES SHORTNESS OF BREATH. -. FALL RISK SCREENING: SCREENING : NO FALLS REPORTED IN THE LAST YEAR. PAIN SCREENING: PATIENT HAS A COMPLAINT OF ACUTE OR CHRONIC PAIN :NO NURSING NOTE: PT WAS ESCORTED TO ER VIA WHEELCHAIR FOR ELEVATED B/P, MIGRAINE AND PT RECENTLY LEARNED HE HAS BLEEDING BEHIND HIS EYES. BRITT CALLED AHEAD TO ER AND ALSO CALLED PT'S AUDREY FOR THIS. PT WAS BROUGHT TO REGISTRATION OF ER. EM. PAIN CENTER INTAKE QUESTIONS: DO YOU HAVE A HISTORY OF MRSA? :NO DO YOU TAKE A BLOOD THINNERS? :NO 81 MG. ASPIRIN DO YOU HAVE ANY BLEEDING DISORDERS? :NO ANY NEW NUMBNESS OR WEAKNESS IN YOUR LEGS OR ARMS? :YES NUMBNESS IN LEGS ANY PACEMAKER,DEFIBRILLATOR, OR DORSAL COLUMN STIMULATOR? :NO DO YOU HAVE ANY RASHES OR OPEN SORES? :NO ARE YOU ALLERGIC TO IV DYE? :NO ARE YOU DIABETIC? :YES ANY NEW PROBLEMS WITH YOUR MEDICATIONS? :NO HAVE YOU RECEIVED A VACCINE IN THE PAST 30 DAYS? :NO DO YOU PLAN TO RECEIVE A VACCINE IN THE NEXT 21 DAYS? :NO DO YOU NEED ANY PRESCRIPTION? :YES TRAZADONE DO YOU TAKE ANY IMMUNOSUPPRESSIVE MEDICATIONS? :YES STELARA IS THERE A CHANCE YOU COULD BE ? :NO ARE YOU BREAST FEEDING? :NO CURRENT MEDICATIONS TAKING PERCOCET 5-325 MG TABLET 1 TO 2 TAB ORALLY Q6H PRN MDD 4 TAKING ASPIR-81 81 MG TABLET DELAYED RELEASE 1 TABLET ORALLY EVERY OTHER DAY TAKING CITRACAL PLUS 400MG TABLET 2 TABS ORALLY AT BEDTIME TAKING FLECAINIDE ACETATE 50 MG TABLET 1 TABLET ORALLY EVERY 12 HRS TAKING VITAMIN D3 MAXIMUM STRENGTH 5000 UNIT CAPSULE 1 CAPSULE ORALLY DAILY TAKING VITAMIN B-12 500 MCG TABLET 1 TABLET ORALLY SUN, STEPHIE, , SAT TAKING TRULICITY 0.75 MG/0.5ML SOLUTION PEN-INJECTOR SUBCUTANEOUS WEEKLY TAKING METFORMIN HCL 1000 MG TABLET 1 TABLET WITH MEALS ORALLY TWICE DAILY TAKING MAGNESIUM 400 MG CAPSULE 1 CAP ORALLY BID TAKING BISOPROLOL FUMARATE 5 MG TABLET 1 TABLET ORALLY ONCE A DAY TAKING LIPITOR 10 MG TABLET 1 TABLET ORALLY ONCE A DAY TAKING MULTI FOR HIM TABLET 2 TABS ORALLY DAILY TAKING TAMSULOSIN HCL 0.4 MG CAPSULE 1 CAPSULE ONCE A DAY TAKING ZOFRAN 8 MG TABLET 1 TABLET ORALLY Q 8 HOURS NEEDED TAKING LOSARTAN POTASSIUM 25 MG TABLET 1 TABLET ORALLY ONCE A DAY TAKING DICYCLOMINE HCL 20 MG TABLET 1 TABLET NEEDED ORALLY QID, NOTES: OFF RIGHT NOW TAKING JARDIANCE 10 MG TABLET 1 TABLET ORALLY ONCE A DAY TAKING POTASSIUM CHLORIDE 20 MEQ TABLET EXTENDED RELEASE 1 TABLET WITH FOOD ORALLY ONCE A DAY TAKING GABAPENTIN 300 MG CAPSULE 1 CAPSULE ORALLY BEFORE BEDTIME TAKING TIZANIDINE HCL 2 MG TABLET 1 TABLET NEEDED ORALLY EVERY 8 HRS TAKING CYMBALTA 60 MG CAPSULE DELAYED RELEASE PARTICLES 1 CAPSULE ORALLY BEFORE BEDTIME TAKING PRILOSEC OTC 20 MG TABLET DELAYED RELEASE 1 TABLET 30 MINUTES BEFORE MORNING MEAL ORALLY ONCE A DAY TAKING AMLODIPINE BESYLATE 2.5 MG TABLET 1 TABLET ORALLY ONCE A DAY TAKING TRAZODONE HCL 50 MG TABLET 1 TAB ORALLY BEFORE BEDTIME TAKING STELARA 45 MG/0.5ML SOLUTION DIRECTED SUBCUTANEOUS TAKING CARISOPRODOL 350 MG TABLET 1 TABLET NEEDED ORALLY BID MDD2 TAKING PRILOSEC 40 MG CAPSULE DELAYED RELEASE 1/2 CAPSULE ORALLY ONCE A DAY TAKING PROBIOTIC 1 CAPSULE 1 CAP ORALLY DAILY TAKING COLCRYS 0.6 MG TABLET 1 TABLET PRN ORALLY ONCE A DAY TAKING COLESTIPOL HCL 1 GM TABLET 1 TABLET ORALLY BID TAKING SPIRONOLACTONE 25 MG TABLET 1 TABLET ORALLY ONCE A DAY, NOTES: ? TAKING TOPIRAMATE 50 MG TABLET 1 TABLET ORALLY BEFORE BEDTIME TAKING ENTOCORT EC 3 MG CAPSULE DELAYED RELEASE PARTICLES DIRECTED ORALLY NOT-TAKING POTASSIUM BICARB & CHLORIDE 20 MEQ PACKET 2 TABS ORALLY TWICE A DAY NOT-TAKING PERCOCET 5-325 MG TABLET 1 TABLET NEEDED ORALLY EVERY 6 HRS MDD4, NOTES: NONE RECENTLY NOT-TAKING HUMIRA 20 MG/0.4ML PREFILLED SYRINGE KIT DIRECTED SUBCUTANEOUS NOT-TAKING PREDNISONE 5 MG TABLET 1 TABLET ORALLY ONCE A DAY NOT-TAKING MELATONIN 5 MG TABLET 1 TABLET AT BEDTIME NEEDED WITH FOOD ORALLY ONCE A DAY, NOTES: PRN MEDICATION LIST REVIEWED AND RECONCILED WITH THE PATIENT PAST MEDICAL HISTORY DIABETES MIGRAINES PAF - INTERMITTENT A-FIB HTN GERD HIGH CHOLESTEROL GUILLAIN BARRE PNEUMONIA ILIEITIS A FIB WITH RVR DIVERTICULITIS BPH ED MULTIPLE GI PROBLEMS CHRON'S ALLERGIES SURGICAL GLUE: RASH, ITCHING - ALLERGY SOCIAL HISTORY GENERAL: TOBACCO USE ARE YOU A:NONSMOKER LATEX QUESTIONNAIRE LATEX ALLERGY : HAVE YOU EVER DEVELOPED ANY TYPE OF REACTION AFTER HANDLING LATEX PRODUCTS SUCH RUBBER GLOVES, CONDOMS, DIAPHRAGMS, BALLOONS, SOCKS, OR UNDERWEAR?NO LATEX ALLERGY : HAVE YOU EVER DEVELOPED ANY TYPE OF REACTION DURING OR AFTER DENTAL APPOINTMENT, VAGINAL/RECTAL EXAMINATION, SURGICAL PROCEDURE, OR ANY OTHER EXPOSURE?NO DATE ASKED : 03/13/2021 LATEX RISK : HAVE YOU EVER HAD ANY DIFFICULTY BREATHING OR HIVES AFTER EATING OR HANDLING ANY FRUITS, OR VEGETABLES; SUCH KIWI, BANANAS, STONE FRUITS, OR CHESTNUTSNO LATEX RISK : DO YOU HAVE A PREVIOUS PERSONAL HISTORY OF MORE THAN NINE SURGERIES, SPINA BIFIDA, OR REPEATED CATHERIZATIONS? NO LATEX RISK : ARE YOU FREQUENTLY EXPOSED TO LATEX PRODUCTS IN YOUR OCCUPATION?NO ALCOHOL USE: NO. ALCOHOL SCREENING DID YOU HAVE A DRINK CONTAINING ALCOHOL IN THE PAST YEAR?YES HOW OFTEN DID YOU HAVE SIX OR MORE DRINKS ON ONE OCCASION IN THE PAST YEAR?NEVER (0 POINTS) HOW MANY DRINKS DID YOU HAVE ON A TYPICAL DAY WHEN YOU WERE DRINKING IN THE PAST YEAR?1 OR 2 (0 POINTS) HOW OFTEN DID YOU HAVE A DRINK CONTAINING ALCOHOL IN THE PAST YEAR?MONTHLY OR LESS (1 POINT) POINTS1 INTERPRETATIONNEGATIVE RECREATIONAL DRUG USE DRUG USE?NO CAFFEINE CAFFEINE USE?YES 1-2 SODA/DAY SEXUAL HX HAD SEX IN THE LAST 12 MONTHS (VAGINAL, ORAL, OR ANAL)?NO HAVE YOU EVER HAD AN STD?NO EPISCOPAL EPISCOPAL NO ROMAN CATHOLIC BELIEFS THAT WOULD IMPACT HEALTH CARE. 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 EXERCISE: WALKS. MARITAL STATUS: . OTHERS AT HOME: SPOUSE. - PFS REFERRAL NEEDED?NO CLERGY REFERRAL NEEDED?NO PUBLIC HEALTH REFERRAL NEEDED?NO WAS THE PROVIDER NOTIFIED OF ANY PERTINENT INFO?YES N/A HAS THE PATIENT BEEN EDUCATED REGARDING HIS/HER PLAN OF CARE?YES HAS THE PATIENT BEEN EDUCATED REGARDING PAIN, THE RISK FOR PAIN, THE IMPORTANCE OF EFFECTIVE PAIN MANAGEMENT, AND THE PAIN ASSESSMENT PROCESS?YES ADVANCE DIRECTIVE ADVANCE DIRECTIVE DISCUSSED WITH PATIENT:YES HCP ON FILE - , AUDREY DAIGLE [phone] REVIEW OF SYSTEMS CONSTITUTIONAL: ANY RECENT FEVER NO . CHILLS NO . WEIGHT CHANGE OF UNKNOWN REASONS NO . GASTROENTEROLOGY: NEW UNEXPLAINABLE CHANGES IN BOWEL CONTROL NO . CONSTIPATION NO . GENITOURINARY: ANY NEW CHANGE IN BLADDER CONTROL? NO . NEUROLOGY: NEW ONSET DIZZINESS OR NEUROLOGICAL CHANGES NOT MENTIONED NO . NEW NUMBNESS OR PAIN PATTERNS NOT MENTIONED AND PERTINENT TO TODAY'S VISIT NO . CARDIOLOGY: NEW CHEST PRESSURE NO . PATIENT DENIES NO . RESPIRATORY: UNEXPLAINABLE COUGH NO . NEW SHORTNESS OF BREATH NO . VITAL SIGNS WT 168.0 LBS, HT 70 IN, BMI 24.10 INDEX, BP 215/95 MM HG, REPEAT BP 180/100 MANAUL BP, HR 83 /MIN, RR 18 /MIN, TEMP 98.4 F, OXYGEN SAT % 99%, SAFE IN ENV? (Y/N) Y, NA INITIALS AW 0926, REVIEWED BY: RUTHANN IS AWARE OF B/P. EM. EXAMINATION GENERAL EXAMINATION: GENERAL APPEARS UNCOMFORTABLE.COMPLAINING OF SEVERE HEADACHE AND DIZZINESS. LUNGS: LUNG SOUNDS ARE CLEAR . HEART: HEART RATE REGULAR . MUSCULOSKELETAL:*, MUSCLE STRENGTH TESTING 5/5 BILATERAL UPPER EXTREMITIES. . CERVICAL:+ FOR PAIN WITH PALPATION OF CERVICAL SPINE. + FOR PAIN WITH PALPATION OF CERVICAL PARASPINALS.SPECIFIC POINT TENDERNESS NOTED OV C4/5-/C5/6 CERVICAL FACETS WITH EXTENSION AND FACET LOADING.. DIAGNOSTIC TESTS REVIEWED CERVICAL MRI . ASSESSMENTS OTHER CHRONIC PAIN - G89.29 (PRIMARY) SPONDYLOSIS WITHOUT MYELOPATHY OR RADICULOPATHY, CERVICOTHORACIC REGION - M47.813 TREATMENT OTHER CHRONIC PAIN SALINE LOCK (ORDERED FOR 05/14/2021) MEDICATION: OXYCODONE HCL TAB 5MG ORALLY (ORDERED FOR 05/14/2021) MEDICATION: VALIUM TAB 5MG ORALLY (DIAZEPAM) (ORDERED FOR 05/14/2021) NOTES: BILATERAL THERAPEUTIC CERVICAL FACET BLOCK C4-5,C5-6,C6-7. PROCEDURE CODES FA211 ESTABILISHED PATIENT [facility] CHARGE DISPOSITION & COMMUNICATION FOLLOW UP POST (REASON: BILATERAL THERAPEUTIC CERVICAL FACET BLOCK C4-5,C5-6,C6-7) ELECTRONICALLY SIGNED BY MARTÍN GOLDBERG ON 05/01/2021 AT 01:54 PM EDT DISCLAIMER : THIS IS A VISIT SUMMARY EXTRACTED FROM THE [employer] CHART. IT IS NOT A COPY OF THE [employer] PROGRESS NOTE. TERESA
== END ==
LOC: M PAIN 09:15
PROVIDERS: ATTEND Nurse Practitioner Family
DX: G89.29 Other chronic pain (principal); M47.813 Spondylosis without myelopathy or radiculopathy, cervicothoracic region; E11.9 Type 2 diabetes mellitus without complications; G43.909 Migraine, unspecified, not intractable, without status migrainosus; I48.0 Paroxysmal atrial fibrillation; I10 Essential (primary) hypertension; K21.9 Gastro-esophageal reflux disease without esophagitis; E78.00 Pure hypercholesterolemia, unspecified; N40.0 Benign prostatic hyperplasia without lower urinary tract symptoms; N52.9 Male erectile dysfunction, unspecified; K50.90 Crohn's disease, unspecified, without complications; Z79.891 Long term (current) use of opiate analgesic; Z79.82 Long term (current) use of aspirin; Z79.84 Long term (current) use of oral hypoglycemic drugs; Z79.899 Other long term (current) drug therapy; Z91.048 Other nonmedicinal substance allergy status

== ENCOUNTER → 2021-05-05 | Outpatient (CLI) | payer OTHER | LOC: M LABSMTC 09:26 | PROVIDERS: ATTEND Anesthesiology | DX: Z11.52 Encounter for screening for COVID-19 (principal) ==

== ENCOUNTER → 2021-05-10 | Outpatient (CLI) | payer OTHER ==
[~2021-05-10] MED LIST changes: +BUPIVACAINE HCL 0.25% 30ML VIAL As Ordered ONE; +ISOVUE-M 300 61% 15ML VIAL As Ordered ONE; +LIDOCAINE 1% SDV 30ML VIAL As Ordered ONE; +TRIAMCINOLONE ACETONIDE SUSP 40 MG/ML VIAL (J3301) As Ordered ONE; +diazePAM 5MG TABLET As Ordered ONE; +oxyCODONE 5MG TAB As Ordered ONE
--- NOTE | 2021-05-10 13:22 | REP ---
INDICATION: BILATERAL CERVICAL FACET. COMPARISON: None. TECHNIQUE: One views. 17.4 seconds of fluoroscopy time is reported. FINDINGS: A single last image hold fluoroscopically obtained spot radiograph(s) of the cervical spine document(s) needle position(s) and contrast injection associated with injection procedure. IMPRESSION: Procedural imaging. <Electronically signed by Alfredo Stanley > 05/10/21 [id number]
--- NOTE | 2021-05-11 00:21 | ECWPNPC ---
PATIENT NAME: HAI DAIGLE : 1965 GENDER: MALE VISIT DATE: 05/10/2021 DISCHARGE DATE: 05/10/21 1345 VISIT LOCKED DATE TIME: PHYSICIAN: BONY ANTOINE MD RESOURCE: BONY ANTOINE MD REASON FOR APPOINTMENT 1. BILATERAL THERAPEUTIC CERVICAL FACET BLOCK C4-C5,C5-C6,C6-C7 HISTORY OF PRESENT ILLNESS GENERAL: -. FALL RISK SCREENING: SCREENING : NO FALLS REPORTED IN THE LAST YEAR. PAIN SCREENING: PATIENT HAS A COMPLAINT OF ACUTE OR CHRONIC PAIN :YES LOCATION OF PAIN:NECK, LEFT SHOULDER, MID BACK LEFT MID BACK INTENSITY OF PAIN (SCALE OF 1 TO 10):7 WHAT DOES YOUR PAIN FEEL LIKE:ACHING, BURNING, CONTINOUS, SHARP, STABBING, TENDER, THROBBING, SORE DURATION:CONTINOUS, CONSTANT, AWAKENS FROM SLEEP PAIN IS INCREASED BY:ACTIVITIES PAIN IS DECREASED BY:USE OF PAIN MEDICATIONS, OTHERS HEAT PAIN HAS INTERFERED WITH THE FOLLOWING: EVERYTHING NURSING NOTE: -. PAIN CENTER INTAKE QUESTIONS: DO YOU HAVE A HISTORY OF MRSA? :NO DO YOU TAKE A BLOOD THINNERS? :NO DO YOU HAVE ANY BLEEDING DISORDERS? :NO ANY NEW NUMBNESS OR WEAKNESS IN YOUR LEGS OR ARMS? :NO ANY PACEMAKER,DEFIBRILLATOR, OR DORSAL COLUMN STIMULATOR? :NO DO YOU HAVE ANY RASHES OR OPEN SORES? :NO ARE YOU ALLERGIC TO IV DYE? :NO ARE YOU DIABETIC? :YES ANY NEW PROBLEMS WITH YOUR MEDICATIONS? :NO HAVE YOU RECEIVED A VACCINE IN THE PAST 30 DAYS? :NO DO YOU PLAN TO RECEIVE A VACCINE IN THE NEXT 21 DAYS? :NO DO YOU TAKE ANY IMMUNOSUPPRESSIVE MEDICATIONS? :YES STELARA-LAST DOSE 8 WEEKS AGO ANY HISTORY OF SEIZURES? :NO ANY HISTORY OF CARDIAC ISSUES OR EVENTS? :NO DO YOU HAVE ANY KIDNEY OR LIVER DISEASE? :YES PAROXYSMAL AFIB DO YOU HAVE SLEEP APNEA? :NO ANY RECENT HEAD INJURY? :NO DO YOU HAVE ANY NEW INFECTIONS? :NO IS THERE A CHANCE YOU COULD BE ? :NO ARE YOU BREAST FEEDING? :NO WHEN DID YOU LAST EAT? : -LAST NIGHT WHEN DID YOU LAST DRINK? : -THIS MORNING WITH MEDS - WATER WHAT DID YOU LAST DRINK? : -WATER NAME OF PERSON DRIVING YOU HOME? : DAUGHTER-MADDY DO YOU HAVE ANY OTHER QUESTIONS OR CONCERNS? : - CURRENT MEDICATIONS TAKING ASPIR-81 81 MG TABLET DELAYED RELEASE 1 TABLET ORALLY DAILY TAKING CITRACAL PLUS 400MG TABLET 2 TABS ORALLY AT BEDTIME TAKING FLECAINIDE ACETATE 50 MG TABLET 1 TABLET ORALLY EVERY 12 HRS TAKING VITAMIN D3 MAXIMUM STRENGTH 5000 UNIT CAPSULE 1 CAPSULE ORALLY DAILY TAKING VITAMIN B-12 500 MCG TABLET 1 TABLET ORALLY SUN, TUES, THURS, SAT TAKING TRULICITY 0.75 MG/0.5ML SOLUTION PEN-INJECTOR SUBCUTANEOUS WEEKLY, NOTES: FINGERSTICK 103 THIS AM TAKING METFORMIN HCL 1000 MG TABLET 1 TABLET WITH MEALS ORALLY TWICE DAILY TAKING MAGNESIUM 400 MG CAPSULE 1 CAP ORALLY BID TAKING BISOPROLOL FUMARATE 5 MG TABLET 1 TABLET ORALLY ONCE A DAY TAKING LIPITOR 10 MG TABLET 1 TABLET ORALLY ONCE A DAY TAKING MULTI FOR HIM TABLET 2 TABS ORALLY DAILY TAKING TAMSULOSIN HCL 0.4 MG CAPSULE 1 CAPSULE ONCE A DAY TAKING ZOFRAN 8 MG TABLET 1 TABLET ORALLY Q 8 HOURS NEEDED TAKING LOSARTAN POTASSIUM 50 MG TABLET 1 TABLET ORALLY ONCE A DAY TAKING DICYCLOMINE HCL 20 MG TABLET 1 TABLET NEEDED ORALLY QID, NOTES: OFF RIGHT NOW TAKING JARDIANCE 10 MG TABLET 1 TABLET ORALLY ONCE A DAY TAKING POTASSIUM CHLORIDE 20 MEQ TABLET EXTENDED RELEASE 1 TABLET WITH FOOD ORALLY ONCE A DAY TAKING GABAPENTIN 300 MG CAPSULE 1 CAPSULE ORALLY BEFORE BEDTIME TAKING TIZANIDINE HCL 2 MG TABLET 1 TABLET NEEDED ORALLY EVERY 8 HRS TAKING CYMBALTA 60 MG CAPSULE DELAYED RELEASE PARTICLES 1 CAPSULE ORALLY BEFORE BEDTIME TAKING PRILOSEC OTC 20 MG TABLET DELAYED RELEASE 1 TABLET 30 MINUTES BEFORE MORNING MEAL ORALLY ONCE A DAY TAKING TRAZODONE HCL 50 MG TABLET 1 TAB ORALLY BEFORE BEDTIME, NOTES: TAKES NEEDED TAKING STELARA 45 MG/0.5ML SOLUTION DIRECTED SUBCUTANEOUS , NOTES: 8 WEEKS AGO TAKING CARISOPRODOL 350 MG TABLET 1 TABLET NEEDED ORALLY BID MDD2 TAKING COLCRYS 0.6 MG TABLET 1 TABLET PRN ORALLY ONCE A DAY, NOTES: TAKES NEEDED TAKING SPIRONOLACTONE 25 MG TABLET 1/2 TABLET ORALLY ONCE A DAY, NOTES: ? TAKING PERCOCET 5-325 MG TABLET 1 TO 2 TAB ORALLY Q6H PRN MDD 4 TAKING DEPAKOTE 500 MG TABLET DELAYED RELEASE 1 TABLET ORALLY BEFORE BEDTIME NOT-TAKING AMLODIPINE BESYLATE 2.5 MG TABLET 1 TABLET ORALLY ONCE A DAY NOT-TAKING PRILOSEC 40 MG CAPSULE DELAYED RELEASE 1/2 CAPSULE ORALLY ONCE A DAY NOT-TAKING PROBIOTIC 1 CAPSULE 1 CAP ORALLY DAILY NOT-TAKING COLESTIPOL HCL 1 GM TABLET 1 TABLET ORALLY BID NOT-TAKING TOPIRAMATE 50 MG TABLET 1 TABLET ORALLY BEFORE BEDTIME NOT-TAKING ENTOCORT EC 3 MG CAPSULE DELAYED RELEASE PARTICLES DIRECTED ORALLY NOT-TAKING POTASSIUM BICARB & CHLORIDE 20 MEQ PACKET 2 TABS ORALLY TWICE A DAY NOT-TAKING PERCOCET 5-325 MG TABLET 1 TABLET NEEDED ORALLY EVERY 6 HRS MDD4, NOTES: NONE RECENTLY NOT-TAKING HUMIRA 20 MG/0.4ML PREFILLED SYRINGE KIT DIRECTED SUBCUTANEOUS NOT-TAKING PREDNISONE 5 MG TABLET 1 TABLET ORALLY ONCE A DAY NOT-TAKING MELATONIN 5 MG TABLET 1 TABLET AT BEDTIME NEEDED WITH FOOD ORALLY ONCE A DAY, NOTES: PRN MEDICATION LIST REVIEWED AND RECONCILED WITH THE PATIENT PAST MEDICAL HISTORY DIABETES MIGRAINES PAF - INTERMITTENT A-FIB HTN GERD HIGH CHOLESTEROL GUILLAIN BARRE PNEUMONIA ILIEITIS A FIB WITH RVR DIVERTICULITIS BPH ED MULTIPLE GI PROBLEMS CHRON'S ALLERGIES SURGICAL GLUE: RASH, ITCHING - ALLERGY SOCIAL HISTORY GENERAL: TOBACCO USE ARE YOU A:NONSMOKER LATEX QUESTIONNAIRE LATEX ALLERGY : HAVE YOU EVER DEVELOPED ANY TYPE OF REACTION AFTER HANDLING LATEX PRODUCTS SUCH RUBBER GLOVES, CONDOMS, DIAPHRAGMS, BALLOONS, SOCKS, OR UNDERWEAR?NO LATEX ALLERGY : HAVE YOU EVER DEVELOPED ANY TYPE OF REACTION DURING OR AFTER DENTAL APPOINTMENT, VAGINAL/RECTAL EXAMINATION, SURGICAL PROCEDURE, OR ANY OTHER EXPOSURE?NO LATEX RISK : HAVE YOU EVER HAD ANY DIFFICULTY BREATHING OR HIVES AFTER EATING OR HANDLING ANY FRUITS, OR VEGETABLES; SUCH KIWI, BANANAS, STONE FRUITS, OR CHESTNUTSNO LATEX RISK : DO YOU HAVE A PREVIOUS PERSONAL HISTORY OF MORE THAN NINE SURGERIES, SPINA BIFIDA, OR REPEATED CATHERIZATIONS? NO LATEX RISK : ARE YOU FREQUENTLY EXPOSED TO LATEX PRODUCTS IN YOUR OCCUPATION?NO DATE ASKED : 05/08/2021 ALCOHOL USE: NO. ALCOHOL SCREENING DID YOU HAVE A DRINK CONTAINING ALCOHOL IN THE PAST YEAR?YES HOW OFTEN DID YOU HAVE SIX OR MORE DRINKS ON ONE OCCASION IN THE PAST YEAR?NEVER (0 POINTS) HOW MANY DRINKS DID YOU HAVE ON A TYPICAL DAY WHEN YOU WERE DRINKING IN THE PAST YEAR?1 OR 2 (0 POINTS) HOW OFTEN DID YOU HAVE A DRINK CONTAINING ALCOHOL IN THE PAST YEAR?MONTHLY OR LESS (1 POINT) POINTS1 INTERPRETATIONNEGATIVE RECREATIONAL DRUG USE DRUG USE?NO CAFFEINE CAFFEINE USE?YES 1-2 SODA/DAY SEXUAL HX HAD SEX IN THE LAST 12 MONTHS (VAGINAL, ORAL, OR ANAL)?NO HAVE YOU EVER HAD AN STD?NO JAINISM JAINISM NO MANDAEISM BELIEFS THAT WOULD IMPACT HEALTH CARE. 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 EXERCISE: WALKS. MARITAL STATUS: . OTHERS AT HOME: SPOUSE. - PFS REFERRAL NEEDED?NO CLERGY REFERRAL NEEDED?NO PUBLIC HEALTH REFERRAL NEEDED?NO WAS THE PROVIDER NOTIFIED OF ANY PERTINENT INFO?YES N/A HAS THE PATIENT BEEN EDUCATED REGARDING HIS/HER PLAN OF CARE?YES HAS THE PATIENT BEEN EDUCATED REGARDING PAIN, THE RISK FOR PAIN, THE IMPORTANCE OF EFFECTIVE PAIN MANAGEMENT, AND THE PAIN ASSESSMENT PROCESS?YES ADVANCE DIRECTIVE ADVANCE DIRECTIVE DISCUSSED WITH PATIENT:YES HCP ON FILE - , AUDREY DAIGLE [phone] VITAL SIGNS WT 167.2 LBS, HT 70 IN, BMI 23.99 INDEX, BP 135/81 MM HG, HR 85 /MIN, RR 18 /MIN, TEMP 97.5 F, OXYGEN SAT % 99%, SAFE IN ENV? (Y/N) YES, NA INITIALS AW 1128, REVIEWED BY: KIYA. EXAMINATION GENERAL: THE PATIENT IS ALERT, ORIENTED TIMES THREE AND COOPERATIVE. LUNGS ARE CLEAR TO AUSCULTATION. HEART SHOWS REGULAR RHYTHM, NO MURMURS AND NO GALLOPS. ASSESSMENTS SPONDYLOSIS WITHOUT MYELOPATHY OR RADICULOPATHY, CERVICAL REGION - M47.812 (PRIMARY) TREATMENT OTHERS NOTES: 05/08/21 1555 PRE-PROCEDURE CALL COMPLETED. Ale COHEN RN. PROCEDURES PAIN NURSING RECORD PROCEDURE IN ROOM 1240, PHYSICIAN IN ROOM 1304, START 1308, FINISH 1312, PHYSICIAN OUT OF ROOM 1314, ECG NORMAL SINUS, PATIENT SHIELDED YES, SAFETY STRAP YES, PREP CHLOROPREP, DRESSING TEGADERM DR. ANTOINE LOC: 1. ALERT, ORIENTED RESP: 1. REGULAR, NO DYSPNEA COLOR: 1. PINK SKIN: 1. WARM, DRY POSITION: 1. PRONE VITALS: 1240 IN ROOM 11/76 83 97% ON RA 18 ROOM AIR 1255 113/76 84 96% ON ROOM AIR RESP 1310 140/81 79 96% ON RA RESP 18 1325 POST PROCEDURE 121/56 82 96% ON RA 18 RESP NOTES Tate TORRES RN FLURO TIME FOR CASE 17 SECONDS COMPLETION OF PROCEDURE APPOINTMENT: POST PAIN 4, DRESSING SITE DRY AND INTACT, IV DISCONTINUED, GAIT WHEELCHAIR, TEACHING COMPLETED, PATIENT ACKNOWLEDGES UNDERSTANDING YES, PROCEDURE APPOINTMENT COMPLETED AT 1344 PN CERVICAL FACET BLOCK LOW BILATERAL CERVICAL PRE PROCEDURE DIAGNOSIS CERVICAL SPONDYLOSIS POST PROCEDURE DIAGNOSIS CERVICAL SPONDYLOSIS PROCEDURE BILATERAL C4-C5 AND BILATERAL C5-C6 THERAPEUTIC CERVICAL FACET BLOCK SURGEON DR. BONY ANTOINE INSULATION CUPOLA OPERATOR NONE ANESTHESIA LOCAL PRE PROCEDURE NOTE THE PATIENT HAS HISTORY OF CHRONIC CERVICAL PAIN. I EVALUATED THE PATIENT AND REVIEWED THE CHART. I WENT OVER THE RISKS, ALTERNATIVES, AND BENEFITS ASSOCIATED WITH THIS PROCEDURE. THE PATIENT WOULD LIKE TO PROCEED AND GIVE CONSENT TO PERFORMED THE PROCEDURE. THE PATIENT DENIES UNEXPLAINABLE WEIGHT LOSS, FEVER, CHILLS, OR NEW CHANGES IN URINARY OR BOWEL CONTROL. THE PATIENT IS COVID-19 NEGATIVE DESCRIPTION OF PROCEDURE THE PATIENT WAS BROUGHT TO THE PROCEDURE ROOM AND PLACED IN THE PRONE POSITION. THE CERVICOTHORACIC AREA WAS CLEANED WITH CHLORAPREP SOLUTION AND DRAPED ASEPTICALLY. THE PROCEDURE WAS DONE UNDER STERILE CONDITIONS. A TIMEOUT WAS PERFORMED WHERE THE CONSENTED SITE WAS VERIFIED WITH EVERYONE IN THE ROOM. UNDER FLUOROSCOPIC GUIDANCE, TARGET POINT WAS SELECTED AT THE RIGHT AND LEFT C4-C5 AND RIGHT AND LEFT C5-C6 CERVICAL FACET JOINT. TARGET POINTS WERE SELECTED AFTER LATERAL ROTATION AND TILT OF THE MAGNIFIER OF THE C-ARM. I CONFIRMED AGAIN THE SITE OF TARGET. LIDOCAINE 0.5% WAS USED TO NUMB THE SKIN AND THE SUBCUTANEOUS TISSUE BELOW IT. SPINAL NEEDLES, 22-GAUGE, WERE ADVANCED UNDER FLUOROSCOPIC GUIDANCE AND FOLLOWING PATIENT FEEDBACK UNTIL THE TARGETS WERE TOUCHED. THE POSITION OF THE NEEDLES WAS VERIFIED WITH AP AND LATERAL VIEWS. AFTER PROPER POSITION OF THE NEEDLES WAS ACHIEVED, ISOVUE-M DYE 30%, 0.1 ML, WAS INJECTED SHOWING SPREAD OF THE DYE. KENALOG 10 MG WAS INJECTED AT EACH SITE. THEN A SOLUTION OF 6 ML OF BUPIVACAINE 0.125% WAS USED TO FLUSH EACH SITE. THE MEDICATIONS WERE VERIFIED WITH THE NURSE. THERE WAS NO EVIDENCE OF BLOOD, PARESTHESIA OR CEREBROSPINAL FLUID DURING THE PROCEDURE. THE PATIENT WAS SENT TO THE RECOVERY ROOM. THE PATIENT WAS MOVING THE EXTREMITIES AND DOING WELL. THERE WERE NO COMPLICATIONS DURING THE PROCEDURE. ESTIMATED BLOOD LOSS WAS LESS THAN 5 ML. FLUOROSCOPY TIME WAS 17 SECONDS. POST PROCEDURE NOTE THE PATIENT WILL BE SEEN IN A FOLLOW UP IN THE NEXT FEW WEEKS. I AM LOOKING FOR LONG LASTING RELIEF FOR THE PATIENT WITH THIS INTERVENTION. INSTRUCTIONS WERE GIVEN, QUESTIONS WERE ANSWERED, AND THE PATIENT EXPRESSED UNDERSTANDING AND AGREES WITH THE PLAN. I, SELAM VARELA, DOCUMENTED THE ABOVE INFORMATION ACTING A SCRIBE FOR DR. ANTOINE. I HAVE REVIEWED THE ABOVE DOCUMENT, WRITTEN BY SELAM VARELA, CHORAL DIRECTOR, AND I VERIFY THAT IT IS ACCURATE DIAGNOSTIC IMAGING [facility] FACET BLOCK (PAIN)[id number] PROCEDURE CODES 69515 INJ PARAVERT F JNT C/T 1 LEV, MODIFIERS: 50 [id number] INJ PARAVERT F JNT C/T 2 LEV, MODIFIERS: 50 DISPOSITION & COMMUNICATION FOLLOW UP FOLLOW UP WITH REGULATORY SCIENTIST (REASON: POST BILATERAL THERAPEUTIC CERVICAL FACET BLOCK C4-C5, C5-C6, C6-C7) ELECTRONICALLY SIGNED BY BONY ANTOINE MD, MD ON 05/10/2021 AT 05:08 PM EDT DISCLAIMER : THIS IS A VISIT SUMMARY EXTRACTED FROM THE [employer] CHART. IT IS NOT A COPY OF THE [employer] PROGRESS NOTE. MTDD
== END ==
LOC: M PAIN 11:00
PROVIDERS: ATTEND Anesthesiology
DX: M47.812 Spondylosis without myelopathy or radiculopathy, cervical region (principal); E11.9 Type 2 diabetes mellitus without complications; G43.909 Migraine, unspecified, not intractable, without status migrainosus; I48.0 Paroxysmal atrial fibrillation; I10 Essential (primary) hypertension; K21.9 Gastro-esophageal reflux disease without esophagitis; E78.00 Pure hypercholesterolemia, unspecified; I48.91 Unspecified atrial fibrillation; N40.0 Benign prostatic hyperplasia without lower urinary tract symptoms; N52.9 Male erectile dysfunction, unspecified; K50.90 Crohn's disease, unspecified, without complications; Z79.82 Long term (current) use of aspirin; Z79.891 Long term (current) use of opiate analgesic; Z79.899 Other long term (current) drug therapy; Z91.048 Other nonmedicinal substance allergy status
CPT/HCPCS: 64490; 64491; J3301; Q9967

== ENCOUNTER → 2021-05-24 | Outpatient (CLI) | payer BC ==
[~2021-05-24] MED LIST changes: -BUPIVACAINE HCL 0.25% 30ML VIAL As Ordered ONE; -ISOVUE-M 300 61% 15ML VIAL As Ordered ONE; -LIDOCAINE 1% SDV 30ML VIAL As Ordered ONE; -TRIAMCINOLONE ACETONIDE SUSP 40 MG/ML VIAL (J3301) As Ordered ONE; -diazePAM 5MG TABLET As Ordered ONE; -oxyCODONE 5MG TAB As Ordered ONE
--- NOTE | 2021-05-26 01:31 | ECWPNPC ---
PATIENT NAME: HAI DAIGLE : 1965 GENDER: MALE VISIT DATE: 05/24/2021 DISCHARGE DATE: 05/24/21 1427 VISIT LOCKED DATE TIME: PHYSICIAN: BRITT LANCASTER RESOURCE: BRITT LANCASTER REASON FOR APPOINTMENT 1. BILATERAL THERAPEUTIC CERVICAL FACET BLOCK C4-C5,C5-C6,C6-C7 HISTORY OF PRESENT ILLNESS GENERAL: HERE FOR POSTPROCEDURE FOLLOW-UP. HAD BILATERAL C4-5, C5-6 CERVICAL FACET BLOCKS ON 05/10/2021. REPORTING IMPROVEMENT IN PAIN IN THE UPPER REGION OF HIS NECK THAT CONTINUES TODAY. CHIEF AREA OF PAIN IS UPPER THORACIC AND LOWER CERVICAL PARASPINAL REGION. HAS RESPONDED WELL TO TRIGGER POINT INJECTIONS IN THE PAST. HAS BEEN HAVING SEVERE HEADACHES LATELY THAT ARE NOT MIGRAINE ACCORDING TO HIM. PAIN SEEMS TO RADIATE FROM THE NECK UP INTO THE HEAD. STATES HE HAS HAD TO MISS WORK ON A FEW OCCASIONS IN THE PAST FEW WEEKS. REVIEWED MRI AND DISCUSSED TREATMENT PLAN. -. FALL RISK SCREENING: SCREENING : NO FALLS REPORTED IN THE LAST YEAR. PAIN SCREENING: PATIENT HAS A COMPLAINT OF ACUTE OR CHRONIC PAIN :YES LOCATION OF PAIN:NECK INTENSITY OF PAIN (SCALE OF 1 TO 10):7 WHAT DOES YOUR PAIN FEEL LIKE:CONTINOUS, TENDER, SORE DURATION:CONTINOUS, CONSTANT, ALL DAY PAIN IS INCREASED BY:OTHERS LAYING DOWN PAIN IS DECREASED BY:USE OF PAIN MEDICATIONS NURSING NOTE: -. PAIN CENTER INTAKE QUESTIONS: DO YOU HAVE A HISTORY OF MRSA? :NO DO YOU TAKE A BLOOD THINNERS? :NO 81 MG. ASPIRIN DO YOU HAVE ANY BLEEDING DISORDERS? :NO ANY NEW NUMBNESS OR WEAKNESS IN YOUR LEGS OR ARMS? :YES NUMBNESS IN LEGS ANY PACEMAKER,DEFIBRILLATOR, OR DORSAL COLUMN STIMULATOR? :NO DO YOU HAVE ANY RASHES OR OPEN SORES? :NO ARE YOU ALLERGIC TO IV DYE? :NO ARE YOU DIABETIC? :YES ANY NEW PROBLEMS WITH YOUR MEDICATIONS? :NO HAVE YOU RECEIVED A VACCINE IN THE PAST 30 DAYS? :NO DO YOU PLAN TO RECEIVE A VACCINE IN THE NEXT 21 DAYS? :NO DO YOU NEED ANY PRESCRIPTION? :YES TRAZADONE, PERCOCET 5-325 MG DO YOU TAKE ANY IMMUNOSUPPRESSIVE MEDICATIONS? :YES STELARA IS THERE A CHANCE YOU COULD BE ? :NO ARE YOU BREAST FEEDING? :NO CURRENT MEDICATIONS TAKING ASPIR-81 81 MG TABLET DELAYED RELEASE 1 TABLET ORALLY DAILY TAKING CITRACAL PLUS 400MG TABLET 2 TABS ORALLY AT BEDTIME TAKING FLECAINIDE ACETATE 50 MG TABLET 1 TABLET ORALLY EVERY 12 HRS TAKING VITAMIN D3 MAXIMUM STRENGTH 5000 UNIT CAPSULE 1 CAPSULE ORALLY DAILY TAKING VITAMIN B-12 500 MCG TABLET 1 TABLET ORALLY SUN, TUES, , SAT TAKING TRULICITY 0.75 MG/0.5ML SOLUTION PEN-INJECTOR SUBCUTANEOUS WEEKLY, NOTES: FINGERSTICK 103 THIS AM TAKING METFORMIN HCL 1000 MG TABLET 1 TABLET WITH MEALS ORALLY TWICE DAILY TAKING MAGNESIUM 400 MG CAPSULE 1 CAP ORALLY BID TAKING BISOPROLOL FUMARATE 5 MG TABLET 1 TABLET ORALLY ONCE A DAY TAKING LIPITOR 10 MG TABLET 1 TABLET ORALLY ONCE A DAY TAKING MULTI FOR HIM TABLET 2 TABS ORALLY DAILY TAKING TAMSULOSIN HCL 0.4 MG CAPSULE 1 CAPSULE ONCE A DAY TAKING ZOFRAN 8 MG TABLET 1 TABLET ORALLY Q 8 HOURS NEEDED TAKING LOSARTAN POTASSIUM 50 MG TABLET 1 TABLET ORALLY ONCE A DAY TAKING DICYCLOMINE HCL 20 MG TABLET 1 TABLET NEEDED ORALLY QID, NOTES: OFF RIGHT NOW TAKING JARDIANCE 10 MG TABLET 1 TABLET ORALLY ONCE A DAY TAKING POTASSIUM CHLORIDE 20 MEQ TABLET EXTENDED RELEASE 1 TABLET WITH FOOD ORALLY ONCE A DAY TAKING GABAPENTIN 300 MG CAPSULE 1 CAPSULE ORALLY BEFORE BEDTIME TAKING TIZANIDINE HCL 2 MG TABLET 1 TABLET NEEDED ORALLY EVERY 8 HRS TAKING CYMBALTA 60 MG CAPSULE DELAYED RELEASE PARTICLES 1 CAPSULE ORALLY BEFORE BEDTIME TAKING PRILOSEC OTC 20 MG TABLET DELAYED RELEASE 1 TABLET 30 MINUTES BEFORE MORNING MEAL ORALLY ONCE A DAY TAKING TRAZODONE HCL 50 MG TABLET 1 TAB ORALLY BEFORE BEDTIME, NOTES: TAKES NEEDED TAKING STELARA 45 MG/0.5ML SOLUTION DIRECTED SUBCUTANEOUS TAKING CARISOPRODOL 350 MG TABLET 1 TABLET NEEDED ORALLY BID MDD2 TAKING COLCRYS 0.6 MG TABLET 1 TABLET PRN ORALLY ONCE A DAY, NOTES: TAKES NEEDED TAKING SPIRONOLACTONE 25 MG TABLET 1/2 TABLET ORALLY ONCE A DAY, NOTES: ? TAKING PERCOCET 5-325 MG TABLET 1 TO 2 TAB ORALLY Q6H PRN MDD 4 TAKING DEPAKOTE 500 MG TABLET DELAYED RELEASE 1 TABLET ORALLY BEFORE BEDTIME NOT-TAKING AMLODIPINE BESYLATE 2.5 MG TABLET 1 TABLET ORALLY ONCE A DAY NOT-TAKING PRILOSEC 40 MG CAPSULE DELAYED RELEASE 1/2 CAPSULE ORALLY ONCE A DAY NOT-TAKING PROBIOTIC 1 CAPSULE 1 CAP ORALLY DAILY NOT-TAKING COLESTIPOL HCL 1 GM TABLET 1 TABLET ORALLY BID NOT-TAKING TOPIRAMATE 50 MG TABLET 1 TABLET ORALLY BEFORE BEDTIME NOT-TAKING ENTOCORT EC 3 MG CAPSULE DELAYED RELEASE PARTICLES DIRECTED ORALLY NOT-TAKING POTASSIUM BICARB & CHLORIDE 20 MEQ PACKET 2 TABS ORALLY TWICE A DAY NOT-TAKING PERCOCET 5-325 MG TABLET 1 TABLET NEEDED ORALLY EVERY 6 HRS MDD4, NOTES: NONE RECENTLY NOT-TAKING HUMIRA 20 MG/0.4ML PREFILLED SYRINGE KIT DIRECTED SUBCUTANEOUS NOT-TAKING PREDNISONE 5 MG TABLET 1 TABLET ORALLY ONCE A DAY NOT-TAKING MELATONIN 5 MG TABLET 1 TABLET AT BEDTIME NEEDED WITH FOOD ORALLY ONCE A DAY, NOTES: PRN MEDICATION LIST REVIEWED AND RECONCILED WITH THE PATIENT PAST MEDICAL HISTORY DIABETES MIGRAINES PAF - INTERMITTENT A-FIB HTN GERD HIGH CHOLESTEROL GUILLAIN BARRE PNEUMONIA ILIEITIS A FIB WITH RVR DIVERTICULITIS BPH ED MULTIPLE GI PROBLEMS CHRON'S ALLERGIES SURGICAL GLUE: RASH, ITCHING - ALLERGY SURGICAL HISTORY BOWEL RESECTION 2013 RIGHT KNEE ARTHROSCOPY, LEFT ALSO DONE YEARS LATER 2013 GASTRIC BYPASS RIGHT INGUINAL HERNIA REPAIR 06/24/18 CHOLECYSTECTOMY 11/2018 EGD 12/2019 EXPLORATORY LAP 12/2019 FAMILY HISTORY FATHER: , DIAGNOSED WITH DIABETES, OTHER MALIGNANT NEOPLASM OF UNSPECIFIED SITE MOTHER: , HYPERTENSION, DIABETES, OTHER SPECIFIED CONDITIONS INFLUENCING HEALTH STATUS SIBLINGS: ALIVE 4 BROTHER(S) , 2 SISTER(S) . 1 SON(S) , 1 DAUGHTER(S) - HEALTHY. 1 SISTER . 1 SISTER HAS ALOT OF MEDICAL ISSUES ALSO. SOCIAL HISTORY GENERAL: TOBACCO USE ARE YOU A:NONSMOKER LATEX QUESTIONNAIRE LATEX ALLERGY : HAVE YOU EVER DEVELOPED ANY TYPE OF REACTION AFTER HANDLING LATEX PRODUCTS SUCH RUBBER GLOVES, CONDOMS, DIAPHRAGMS, BALLOONS, SOCKS, OR UNDERWEAR?NO LATEX ALLERGY : HAVE YOU EVER DEVELOPED ANY TYPE OF REACTION DURING OR AFTER DENTAL APPOINTMENT, VAGINAL/RECTAL EXAMINATION, SURGICAL PROCEDURE, OR ANY OTHER EXPOSURE?NO LATEX RISK : HAVE YOU EVER HAD ANY DIFFICULTY BREATHING OR HIVES AFTER EATING OR HANDLING ANY FRUITS, OR VEGETABLES; SUCH KIWI, BANANAS, STONE FRUITS, OR CHESTNUTSNO LATEX RISK : DO YOU HAVE A PREVIOUS PERSONAL HISTORY OF MORE THAN NINE SURGERIES, SPINA BIFIDA, OR REPEATED CATHERIZATIONS? NO LATEX RISK : ARE YOU FREQUENTLY EXPOSED TO LATEX PRODUCTS IN YOUR OCCUPATION?NO DATE ASKED : 05/24/2021 ALCOHOL USE: NO. ALCOHOL SCREENING DID YOU HAVE A DRINK CONTAINING ALCOHOL IN THE PAST YEAR?YES HOW OFTEN DID YOU HAVE SIX OR MORE DRINKS ON ONE OCCASION IN THE PAST YEAR?NEVER (0 POINTS) HOW MANY DRINKS DID YOU HAVE ON A TYPICAL DAY WHEN YOU WERE DRINKING IN THE PAST YEAR?1 OR 2 (0 POINTS) HOW OFTEN DID YOU HAVE A DRINK CONTAINING ALCOHOL IN THE PAST YEAR?MONTHLY OR LESS (1 POINT) POINTS1 INTERPRETATIONNEGATIVE RECREATIONAL DRUG USE DRUG USE?NO CAFFEINE CAFFEINE USE?YES 1-2 SODA/DAY SEXUAL HX HAD SEX IN THE LAST 12 MONTHS (VAGINAL, ORAL, OR ANAL)?NO HAVE YOU EVER HAD AN STD?NO RESTORATIONIST RESTORATIONIST NO CHRISTIANITY BELIEFS THAT WOULD IMPACT HEALTH CARE. 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 EXERCISE: WALKS. MARITAL STATUS: . OTHERS AT HOME: SPOUSE. - PFS REFERRAL NEEDED?NO CLERGY REFERRAL NEEDED?NO PUBLIC HEALTH REFERRAL NEEDED?NO WAS THE PROVIDER NOTIFIED OF ANY PERTINENT INFO?YES N/A HAS THE PATIENT BEEN EDUCATED REGARDING HIS/HER PLAN OF CARE?YES HAS THE PATIENT BEEN EDUCATED REGARDING PAIN, THE RISK FOR PAIN, THE IMPORTANCE OF EFFECTIVE PAIN MANAGEMENT, AND THE PAIN ASSESSMENT PROCESS?YES ADVANCE DIRECTIVE ADVANCE DIRECTIVE DISCUSSED WITH PATIENT:YES HCP ON FILE - , AUDREY DAIGLE [phone] HOSPITALIZATION/MAJOR DIAGNOSTIC PROCEDURE SURGERY RELATED GUILLAIN BARRE REQUIRING PLASMAPHERESIS, IVIG, STEROIDS AND INTUBATION [place] 09/2015 PNEUMONIA, ILEITIS 02/2018 REVIEW OF SYSTEMS CONSTITUTIONAL: ANY RECENT FEVER NO . CHILLS NO . WEIGHT CHANGE OF UNKNOWN REASONS NO . GASTROENTEROLOGY: NEW UNEXPLAINABLE CHANGES IN BOWEL CONTROL NO . CONSTIPATION NO . GENITOURINARY: ANY NEW CHANGE IN BLADDER CONTROL? NO . NEUROLOGY: NEW ONSET DIZZINESS OR NEUROLOGICAL CHANGES NOT MENTIONED NO . NEW NUMBNESS OR PAIN PATTERNS NOT MENTIONED AND PERTINENT TO TODAY'S VISIT NO . CARDIOLOGY: NEW CHEST PRESSURE NO . PATIENT DENIES NO . RESPIRATORY: UNEXPLAINABLE COUGH NO . NEW SHORTNESS OF BREATH NO . VITAL SIGNS WT 168.4 LBS, HT 70 IN, BMI 24.16 INDEX, BP 153/95 MM HG, HR 74 /MIN, RR 18 /MIN, TEMP 97.5 F, OXYGEN SAT % 97%, SAFE IN ENV? (Y/N) YES, NA INITIALS VT 13:45T.QUINN CLARK. EXAMINATION GENERAL EXAMINATION: GENERAL AWAKE,ALERT ,PLEAASANT . PSYCH AFFECT NORMAL . LUNGS: LUNG VALLADARES ARE CLEAR TO AUSCULTATION BILATERALLY. GOOD MOVEMENT OF AIR . HEART: S1, S2 IN A REGULAR RATE AND RHYTHM. NO SIGNIFICANT MURMURS, RUBS OR GALLOPS NOTED . CERVICAL:TRIGGER POINTS: CERVICAL AND TRAPEZIUS BILAT..PAIN IS AGGREVATED WITH ROJM NECK. TRIGGER POINTS NOTED OVER UPPER THORACIC AND SCAPULAR REGION.. ASSESSMENTS MYALGIA, OTHER SITE - M79.18 (PRIMARY) OTHER CHRONIC PAIN - G89.29 TREATMENT MYALGIA, OTHER SITE MEDICATION: PAIN VALIUM TAB 5MG ORALLY (DIAZEPAM) (ORDERED FOR 06/07/2021) MEDICATION: PAIN OXYCODONE HCL TAB 5MG ORALLY (ORDERED FOR 06/07/2021) NOTES: TRIGGER POINT INJECTIONS BILATERAL NECK, BILATERAL SHOULDERS, BILATERAL THORACIC. REVIEWED PRE PROCEDURE INFORMATION, PATIENT VERBALIZED UNDERSTANDING CODY CLARK. OTHER CHRONIC PAIN PAIN PROCEDURE LOGDATE OF PROCEDURE1PROCEDURE:BILATERAL THERAPEUTIC CERVICAL FACET BLOCK C4-C5, C5-[id number] OF PRE SEDATEVALIUM 5MG, OXYCODONE 5MGRESULT:IMPROVEMENT CONTINUES TODAY PROCEDURE CODES FA211 ESTABILISHED PATIENT [facility] CHARGE DISPOSITION & COMMUNICATION FOLLOW UP POST (REASON: TRIGGER POINT INJECTIONS BILATERAL NECK, BILATERAL SHOULDERS, BILATERAL THORACIC.) ELECTRONICALLY SIGNED BY MARTÍN GOLDBERG ON 05/25/2021 AT 12:33 PM EDT DISCLAIMER : THIS IS A VISIT SUMMARY EXTRACTED FROM THE [employer] CHART. IT IS NOT A COPY OF THE [employer] PROGRESS NOTE. TERESA
== END ==
LOC: M PAIN 13:45
PROVIDERS: ATTEND Nurse Practitioner Family
DX: M79.18 Myalgia, other site (principal); G89.29 Other chronic pain; E11.9 Type 2 diabetes mellitus without complications; G43.909 Migraine, unspecified, not intractable, without status migrainosus; I48.0 Paroxysmal atrial fibrillation; I10 Essential (primary) hypertension; K21.9 Gastro-esophageal reflux disease without esophagitis; E78.00 Pure hypercholesterolemia, unspecified; N40.0 Benign prostatic hyperplasia without lower urinary tract symptoms; N52.9 Male erectile dysfunction, unspecified; K50.90 Crohn's disease, unspecified, without complications; Z79.82 Long term (current) use of aspirin; Z79.899 Other long term (current) drug therapy; Z79.891 Long term (current) use of opiate analgesic; Z79.84 Long term (current) use of oral hypoglycemic drugs; Z91.048 Other nonmedicinal substance allergy status

== ENCOUNTER → 2021-06-01 | Outpatient (CLI) | payer BC ==
[2021-06-01 15:31] LABS: HEMATOCRIT 44.4 % (42.0-52.0); HEMOGLOBIN 14.8 g/dl (13.5-17.5); MEAN CORPUSCULAR HEMOGLOBIN 29.7 pg (27.0-33.0); MEAN CORPUSCULAR HGB CONC 33.3 g/dl (32.0-36.5); MEAN CORPUSCULAR VOLUME 89.2 fl (80.0-96.0); PLATELET COUNT, AUTOMATED 188 10^3/uL (150-450); RED BLOOD COUNT 4.98 10^6/uL (4.30-6.10); WHITE BLOOD COUNT 5.3 10^3/uL (4.0-10.0)
[2021-06-01 15:49] LABS: ERYTHROCYTE SEDIMENTATION RATE 2 mm/hr (0-20)
[2021-06-01 16:09] LABS: ALT/SGPT 25 U/L (12-78); BILIRUBIN,TOTAL 0.5 MG/DL (0.2-1.0); BLOOD UREA NITROGEN 19 MG/DL (7-18); CALCIUM LEVEL 9.1 MG/DL (8.5-10.1); CARBON DIOXIDE LEVEL 31 MEQ/L (21-32); CHLORIDE LEVEL 105 MEQ/L (98-107); CREATININE FOR GFR 0.88 MG/DL (0.70-1.30); GLOMERULAR FILTRATION RATE > 60.0 (>56); GLUCOSE, FASTING 243 MG/DL (70-100); POTASSIUM SERUM 4.4 MEQ/L (3.5-5.1); SODIUM LEVEL 142 MEQ/L (136-145); TOTAL PROTEIN 6.1 GM/DL (6.4-8.2)
== END ==
LOC: M LAB 15:05
PROVIDERS: ATTEND Internal Medicine Gastroenterology
DX: R19.7 Diarrhea, unspecified (principal); K50.00 Crohn's disease of small intestine without complications; R10.12 Left upper quadrant pain; K44.9 Diaphragmatic hernia without obstruction or gangrene; K21.9 Gastro-esophageal reflux disease without esophagitis; Z80.0 Family history of malignant neoplasm of digestive organs

== ENCOUNTER → 2021-06-02 | Outpatient (CLI) | payer BC | LOC: M LABSMTC 12:09 | PROVIDERS: ATTEND Anesthesiology | DX: Z20.822 Contact with and (suspected) exposure to COVID-19 (principal) ==

== ENCOUNTER → 2021-06-07 | Outpatient (CLI) | payer BC ==
[~2021-06-07] MED LIST changes: +BUPIVACAINE HCL 0.25% 10ML VIAL As Ordered ONE; +BUPIVACAINE HCL 0.25% 30ML VIAL As Ordered ONE; +TRIAMCINOLONE ACETONIDE SUSP 40 MG/ML VIAL (J3301) As Ordered ONE; +diazePAM 5MG TABLET As Ordered ONE; +oxyCODONE 5MG TAB As Ordered ONE
--- NOTE | 2021-06-13 00:13 | ECWPNPC ---
PATIENT NAME: HAI DAIGLE : 1965 GENDER: MALE VISIT DATE: 06/07/2021 DISCHARGE DATE: 06/07/21 1256 VISIT LOCKED DATE TIME: PHYSICIAN: BONY ANTOINE MD RESOURCE: BONY ANTOINE MD REASON FOR APPOINTMENT 1. TRIGGER POINT INJECTIONS BILATERAL NECK, BILATERAL SHOULDERS, BILATERAL THORACIC. HISTORY OF PRESENT ILLNESS GENERAL: -. FALL RISK SCREENING: SCREENING : NO FALLS REPORTED IN THE LAST YEAR. PAIN SCREENING: PATIENT HAS A COMPLAINT OF ACUTE OR CHRONIC PAIN :YES LOCATION OF PAIN:NECK, BOTH SHOULDERS INTENSITY OF PAIN (SCALE OF 1 TO 10):6 WHAT DOES YOUR PAIN FEEL LIKE:BURNING, STABBING DURATION:CONTINOUS, CONSTANT PAIN IS INCREASED BY:ACTIVITIES PAIN IS DECREASED BY:USE OF PAIN MEDICATIONS NURSING NOTE: -. PAIN CENTER INTAKE QUESTIONS: DO YOU HAVE A HISTORY OF MRSA? :NO DO YOU TAKE A BLOOD THINNERS? :NO DO YOU HAVE ANY BLEEDING DISORDERS? :NO ANY NEW NUMBNESS OR WEAKNESS IN YOUR LEGS OR ARMS? :NO ANY PACEMAKER,DEFIBRILLATOR, OR DORSAL COLUMN STIMULATOR? :NO DO YOU HAVE ANY RASHES OR OPEN SORES? :NO ARE YOU ALLERGIC TO IV DYE? :NO ARE YOU DIABETIC? :YES ANY NEW PROBLEMS WITH YOUR MEDICATIONS? :NO HAVE YOU RECEIVED A VACCINE IN THE PAST 30 DAYS? :NO DO YOU PLAN TO RECEIVE A VACCINE IN THE NEXT 21 DAYS? :NO DO YOU TAKE ANY IMMUNOSUPPRESSIVE MEDICATIONS? :YES STELARA 8 WEEKS AGO ANY HISTORY OF SEIZURES? :NO ANY HISTORY OF CARDIAC ISSUES OR EVENTS? :NO DO YOU HAVE ANY KIDNEY OR LIVER DISEASE? :NO DO YOU HAVE SLEEP APNEA? :NO ANY RECENT HEAD INJURY? :NO DO YOU HAVE ANY NEW INFECTIONS? :NO IS THERE A CHANCE YOU COULD BE ? :NO ARE YOU BREAST FEEDING? :NO WHEN DID YOU LAST EAT? : 06/07/2021 @ 0000 WHEN DID YOU LAST DRINK? : 06/05/21 @ 0530 WHAT DID YOU LAST DRINK? : WATER NAME OF PERSON DRIVING YOU HOME? : SON OR MAICO DO YOU HAVE ANY OTHER QUESTIONS OR CONCERNS? : - CURRENT MEDICATIONS TAKING ASPIR-81 81 MG TABLET DELAYED RELEASE 1 TABLET ORALLY DAILY TAKING CITRACAL PLUS 400MG TABLET 2 TABS ORALLY AT BEDTIME TAKING FLECAINIDE ACETATE 50 MG TABLET 1 TABLET ORALLY EVERY 12 HRS TAKING VITAMIN D3 MAXIMUM STRENGTH 5000 UNIT CAPSULE 1 CAPSULE ORALLY DAILY TAKING VITAMIN B-12 500 MCG TABLET 1 TABLET ORALLY SUN, TUES, TH, SAT TAKING TRULICITY 0.75 MG/0.5ML SOLUTION PEN-INJECTOR SUBCUTANEOUS WEEKLY, NOTES: FRIDAY TAKING METFORMIN HCL 1000 MG TABLET 1 TABLET WITH MEALS ORALLY TWICE DAILY, NOTES: 06/06/21 TAKING MAGNESIUM 400 MG CAPSULE 1 CAP ORALLY BID TAKING BISOPROLOL FUMARATE 5 MG TABLET 1 TABLET ORALLY ONCE A DAY, NOTES: 06/06/21 TAKING LIPITOR 10 MG TABLET 1 TABLET ORALLY ONCE A DAY TAKING MULTI FOR HIM TABLET 2 TABS ORALLY DAILY TAKING TAMSULOSIN HCL 0.4 MG CAPSULE 1 CAPSULE ONCE A DAY TAKING ZOFRAN 8 MG TABLET 1 TABLET ORALLY Q 8 HOURS NEEDED TAKING LOSARTAN POTASSIUM 50 MG TABLET 1 TABLET ORALLY ONCE A DAY TAKING DICYCLOMINE HCL 20 MG TABLET 1 TABLET NEEDED ORALLY QID, NOTES: OFF RIGHT NOW TAKING JARDIANCE 10 MG TABLET 1 TABLET ORALLY ONCE A DAY, NOTES: 06/06/21 TAKING POTASSIUM CHLORIDE 20 MEQ TABLET EXTENDED RELEASE 1 TABLET WITH FOOD ORALLY ONCE A DAY TAKING GABAPENTIN 300 MG CAPSULE 1 CAPSULE ORALLY BEFORE BEDTIME, NOTES: 06/06/21 TAKING TIZANIDINE HCL 2 MG TABLET 1 TABLET NEEDED ORALLY EVERY 8 HRS, NOTES: 06/06/21 TAKING CYMBALTA 60 MG CAPSULE DELAYED RELEASE PARTICLES 1 CAPSULE ORALLY BEFORE BEDTIME, NOTES: 06/06/21 TAKING PRILOSEC OTC 20 MG TABLET DELAYED RELEASE 1 TABLET 30 MINUTES BEFORE MORNING MEAL ORALLY ONCE A DAY TAKING TRAZODONE HCL 50 MG TABLET 1 TAB ORALLY BEFORE BEDTIME, NOTES: 06/04/21 TAKING STELARA 45 MG/0.5ML SOLUTION DIRECTED SUBCUTANEOUS , NOTES: 8 WEEKS AGO TAKING CARISOPRODOL 350 MG TABLET 1 TABLET NEEDED ORALLY BID MDD2, NOTES: FRIDAY TAKING COLCRYS 0.6 MG TABLET 1 TABLET PRN ORALLY ONCE A DAY, NOTES: NONE LATELY TAKING SPIRONOLACTONE 25 MG TABLET 1/2 TABLET ORALLY ONCE A DAY, NOTES: ? TAKING PERCOCET 5-325 MG TABLET 1 TO 2 TAB ORALLY Q6H PRN MDD 4, NOTES: FRIDAY TAKING DEPAKOTE 500 MG TABLET DELAYED RELEASE 1 TABLET ORALLY BEFORE BEDTIME NOT-TAKING PERCOCET 5-325 MG TABLET 1 TABLET NEEDED ORALLY EVERY 6 HRS MDD4, NOTES: NONE RECENTLY NOT-TAKING AMLODIPINE BESYLATE 2.5 MG TABLET 1 TABLET ORALLY ONCE A DAY NOT-TAKING PRILOSEC 40 MG CAPSULE DELAYED RELEASE 1/2 CAPSULE ORALLY ONCE A DAY NOT-TAKING PROBIOTIC 1 CAPSULE 1 CAP ORALLY DAILY NOT-TAKING COLESTIPOL HCL 1 GM TABLET 1 TABLET ORALLY BID NOT-TAKING TOPIRAMATE 50 MG TABLET 1 TABLET ORALLY BEFORE BEDTIME NOT-TAKING ENTOCORT EC 3 MG CAPSULE DELAYED RELEASE PARTICLES DIRECTED ORALLY NOT-TAKING POTASSIUM BICARB & CHLORIDE 20 MEQ PACKET 2 TABS ORALLY TWICE A DAY NOT-TAKING HUMIRA 20 MG/0.4ML PREFILLED SYRINGE KIT DIRECTED SUBCUTANEOUS NOT-TAKING PREDNISONE 5 MG TABLET 1 TABLET ORALLY ONCE A DAY NOT-TAKING MELATONIN 5 MG TABLET 1 TABLET AT BEDTIME NEEDED WITH FOOD ORALLY ONCE A DAY, NOTES: PRN MEDICATION LIST REVIEWED AND RECONCILED WITH THE PATIENT PAST MEDICAL HISTORY DIABETES MIGRAINES PAF - INTERMITTENT A-FIB HTN GERD HIGH CHOLESTEROL GUILLAIN BARRE PNEUMONIA ILIEITIS A FIB WITH RVR DIVERTICULITIS BPH ED MULTIPLE GI PROBLEMS CHRON'S ALLERGIES SURGICAL GLUE: RASH, ITCHING - ALLERGY SOCIAL HISTORY GENERAL: TOBACCO USE ARE YOU A:NONSMOKER LATEX QUESTIONNAIRE LATEX ALLERGY : HAVE YOU EVER DEVELOPED ANY TYPE OF REACTION AFTER HANDLING LATEX PRODUCTS SUCH RUBBER GLOVES, CONDOMS, DIAPHRAGMS, BALLOONS, SOCKS, OR UNDERWEAR?NO LATEX ALLERGY : HAVE YOU EVER DEVELOPED ANY TYPE OF REACTION DURING OR AFTER DENTAL APPOINTMENT, VAGINAL/RECTAL EXAMINATION, SURGICAL PROCEDURE, OR ANY OTHER EXPOSURE?NO DATE ASKED : 05/24/2021 LATEX RISK : HAVE YOU EVER HAD ANY DIFFICULTY BREATHING OR HIVES AFTER EATING OR HANDLING ANY FRUITS, OR VEGETABLES; SUCH KIWI, BANANAS, STONE FRUITS, OR CHESTNUTSNO LATEX RISK : DO YOU HAVE A PREVIOUS PERSONAL HISTORY OF MORE THAN NINE SURGERIES, SPINA BIFIDA, OR REPEATED CATHERIZATIONS? NO LATEX RISK : ARE YOU FREQUENTLY EXPOSED TO LATEX PRODUCTS IN YOUR OCCUPATION?NO ALCOHOL USE: NO. ALCOHOL SCREENING DID YOU HAVE A DRINK CONTAINING ALCOHOL IN THE PAST YEAR?YES HOW OFTEN DID YOU HAVE SIX OR MORE DRINKS ON ONE OCCASION IN THE PAST YEAR?NEVER (0 POINTS) HOW MANY DRINKS DID YOU HAVE ON A TYPICAL DAY WHEN YOU WERE DRINKING IN THE PAST YEAR?1 OR 2 (0 POINTS) HOW OFTEN DID YOU HAVE A DRINK CONTAINING ALCOHOL IN THE PAST YEAR?MONTHLY OR LESS (1 POINT) POINTS1 INTERPRETATIONNEGATIVE RECREATIONAL DRUG USE DRUG USE?NO CAFFEINE CAFFEINE USE?YES 1-2 SODA/DAY SEXUAL HX HAD SEX IN THE LAST 12 MONTHS (VAGINAL, ORAL, OR ANAL)?NO HAVE YOU EVER HAD AN STD?NO MU-ISM MU-ISM NO ADVENTISM BELIEFS THAT WOULD IMPACT HEALTH CARE. 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 EXERCISE: WALKS. MARITAL STATUS: . OTHERS AT HOME: SPOUSE. - PFS REFERRAL NEEDED?NO CLERGY REFERRAL NEEDED?NO PUBLIC HEALTH REFERRAL NEEDED?NO WAS THE PROVIDER NOTIFIED OF ANY PERTINENT INFO?YES N/A HAS THE PATIENT BEEN EDUCATED REGARDING HIS/HER PLAN OF CARE?YES HAS THE PATIENT BEEN EDUCATED REGARDING PAIN, THE RISK FOR PAIN, THE IMPORTANCE OF EFFECTIVE PAIN MANAGEMENT, AND THE PAIN ASSESSMENT PROCESS?YES ADVANCE DIRECTIVE ADVANCE DIRECTIVE DISCUSSED WITH PATIENT:YES HCP ON FILE - , AUDREY DAIGLE [phone] VITAL SIGNS WT 168.2 LBS, HT 70 IN, BMI 24.13 INDEX, BP 183/88 MM HG, HR 62 /MIN, RR 18 /MIN, TEMP 98.0 F, OXYGEN SAT % 99%, SAFE IN ENV? (Y/N) Y, NA INITIALS AW 1126, REVIEWED BY: CESILIA. EXAMINATION GENERAL: A HISTORY AND PHYSICAL EXAM ON THE PATIENT WAS DONE ON 05/24/2021 (DATE OF ORIGINAL ASSESSMENT) IN PREPARATION OF SURGERY/PROCEDURE. I HAVE NOW REASSESSED THIS PATIENT'S HEALTH STATUS AND PERFORMED AN UPDATED EXAM TODAY. ALL CHANGES IN THE PATIENT'S HISTORY, PHYSICAL EXAM, PRE-EXISTING CONDITONS, AND INDICATIONS/CONTRAINDICATIONS TO THE PLANNED PROCEDURE AND ANESTHESIA ARE DOCUMENTED AND EVALUATED BELOW. I ATTEST TO THE ADEQUACY AND APPROPRIATENESS OF MY ASSESSMENT, AND CONFIRM THE NECESSITY FOR THE PLANNED PROCEDURE. THE PATIENT IS ALERT, ORIENTED TIMES THREE AND COOPERATIVE. LUNGS ARE CLEAR TO AUSCULTATION. HEART SHOWS REGULAR RHYTHM, NO MURMURS AND NO GALLOPS. ASSESSMENTS MYALGIA, OTHER SITE - M79.18 (PRIMARY) TREATMENT MYALGIA, OTHER SITE COMPLETION OF PROCEDURAL VISIT WHEN MEETS [id number],ELIZABETH 06/07/2021 12:56:27 PM > CRITERIA MET MEDICATION: PAIN VALIUM TAB 5MG ORALLY (DIAZEPAM)[id number],JAMIE Maryan 06/07/2021 12:03:02 PM > VERIFIED. TIAN ASH 06/07/2021 12:05:28 PM > ADMINISTERED MEDICATION: PAIN OXYCODONE HCL TAB 5MG ORALLY [id number],JAMIE Maryan 06/07/2021 12:03:16 PM > VERIFIED. TIAN ASH 06/07/2021 12:05:44 PM > ADMINISTERED PROCEDURES PAIN NURSING RECORD PROCEDURE IN ROOM 1200, PHYSICIAN IN ROOM 1228, START 1234, FINISH 1237, PHYSICIAN OUT OF ROOM 1238, OUT OF ROOM 1255, ECG N/A, PATIENT SHIELDED NO, SAFETY STRAP NO, PREP ALCOHOL DR. ANTOINE, DRESSING TEGADERM Jovana ASH RN LOC: 1. ALERT, ORIENTED, TIAN ASH 06/07/2021 12:34:57 PM > RESP: 1. REGULAR, NO DYSPNEA, TIAN ASH 06/07/2021 12:35:01 PM > COLOR: 1. PINK, TIAN ASH 06/07/2021 12:35:05 PM > SKIN: 1. WARM, DRY, TIAN ASH 06/07/2021 12:35:09 PM > POSITION: 5. SITTING, TIAN ASH 06/07/2021 12:35:15 PM > VITALS: 166/85, 62, 16, 98%, TIAN ASH 06/07/2021 12:50:43 PM > NOTES Jovana ASH RN, VALENTINO ASHBETH 06/07/2021 12:35:23 PM > COMPLETION OF PROCEDURE APPOINTMENT: POST PAIN 2, DRESSING SITE DRY AND INTACT, IV N/A, GAIT STEADY, TEACHING COMPLETED, PATIENT ACKNOWLEDGES UNDERSTANDING YES, PROCEDURE APPOINTMENT COMPLETED AT 1255 PN TRIGGER POINT INJECTION WITH STEROIDS PRE PROCEDURE DIAGNOSIS 1. MYALGIA 2. PAIN AT BILATERAL NECK AREA, BILATERAL SHOULDER AREA AND BILATERAL THORACIC AREA POST PROCEDURE DIAGNOSIS 1. MYALGIA 2. PAIN AT BILATERAL NECK AREA, BILATERAL SHOULDER AREA AND BILATERAL THORACIC AREA PROCEDURE TRIGGER POINT INJECTION AT BILATERAL NECK AREA, BILATERAL SHOULDER AREA AND BILATERAL THORACIC AREA SURGEON DR. BONY ANTOINE THERAPEUTIC RECREATION ASSISTANT NONE ANESTHESIA LOCAL PRE PROCEDURE NOTE THE PATIENT HAS A HISTORY OF CHRONIC PAIN AT THE RIGHT AND LEFT NECK AREA, RIGHT AND LEFT SHOULDER AREA AND RIGHT AND LEFT THORACIC AREA. I EVALUATED THE PATIENT AND REVIEWED THE CHART. THERE IS EVIDENCE OF BANDS OF TISSUE WITH RESTRICTION OF MOVEMENT AND PRESENCE OF TRIGGER POINT AT THE RIGHT AND LEFT NECK AREA, RIGHT AND LEFT SHOULDER AREA AND RIGHT AND LEFT THORACIC AREA. I WENT OVER THE RISKS, ALTERNATIVES, AND BENEFITS ASSOCIATED WITH THIS PROCEDURE. THE PATIENT WOULD LIKE TO PROCEED AND GIVE CONSENT TO PERFORMED THE PROCEDURE. THE PATIENT DENIES UNEXPLAINABLE WEIGHT LOSS, FEVER, CHILLS, OR NEW CHANGES IN URINARY OR BOWEL CONTROL. THE PATIENT IS COVID-19 NEGATIVE DESCRIPTION OF PROCEDURE THE PATIENT WAS BROUGHT TO THE PROCEDURE ROOM AND PLACED IN THE SITTING POSITION. THE AREA WAS CLEANED WITH ALCOHOL. THE PROCEDURE WAS DONE USING ASEPTIC STERILE TECHNIQUE. A TIMEOUT WAS PERFORMED WHERE THE CONSENTED SITE WAS VERIFIED WITH EVERYONE IN THE ROOM. USING A 25-GAUGE NEEDLE, TRIGGER POINTS WERE INJECTED AT THE RIGHT AND LEFT NECK AREA, RIGHT AND LEFT SHOULDER AREA AND RIGHT AND LEFT THORACIC AREAWITH A TOTAL OF 40 ML OF BUPIVACAINE 0.25% AND KENALOG 40 MG. THE MEDICATIONS WERE VERIFIED WITH THE NURSE. THERE WAS NO EVIDENCE OF BLOOD OR PARESTHESIA DURING THE PROCEDURE. THE PATIENT WAS SENT TO THE RECOVERY ROOM. THE PATIENT WAS MOVING THE EXTREMITIES AND DOING WELL. THERE WERE NO COMPLICATIONS DURING THE PROCEDURE. ESTIMATED BLOOD LOSS WAS LESS THAN 5 ML POST PROCEDURE NOTE THE PATIENT WILL TALK TO HIS PRIMARY ABOUT GETTING HIM AN APPOINTMENT WITH DERMATOLOGY ABOUT HIS SKIN CONDITION. THE PROCEDURE DONE WAS DISCUSSED WITH THE PATIENT. THE PATIENT WILL BE SEEN IN A FOLLOW UP IN THE NEXT FEW WEEKS. I AM LOOKING FOR LONG LASTING PAIN RELIEF FOR THE PATIENT WITH THIS INTERVENTION. INSTRUCTIONS WERE GIVEN, QUESTIONS WERE ANSWERED, AND THE PATIENT EXPRESSED UNDERSTANDING AND AGREES WITH THE PLAN. I, SELAM VARELA, DOCUMENTED THE ABOVE INFORMATION ACTING A SCRIBE FOR DR. ANTOINE. I HAVE REVIEWED THE ABOVE DOCUMENT, WRITTEN BY SELAM VARELA, [employer] BUSINESS OBJECTS DEVELOPER, AND I VERIFY THAT IT IS ACCURATE PROCEDURE CODES 99286 INJECT TRIGGER POINTS 3/> DISPOSITION & COMMUNICATION FOLLOW UP FOLLOW UP WITH BUSINESS DEVELOPMENT ANALYST (REASON: POST TRIGGER POINT INJECTIONS BILATERAL NECK, BILATERAL SHOULDER, BILATEAL THORACIC) ELECTRONICALLY SIGNED BY BONY ANTOINE MD, MD ON 06/12/2021 AT 10:31 AM EDT DISCLAIMER : THIS IS A VISIT SUMMARY EXTRACTED FROM THE [facility] CHART. IT IS NOT A COPY OF THE [employer] PROGRESS NOTE. TERESA
== END ==
LOC: M PAIN 11:40
PROVIDERS: ATTEND Anesthesiology
DX: M79.18 Myalgia, other site (principal); E11.9 Type 2 diabetes mellitus without complications; G43.909 Migraine, unspecified, not intractable, without status migrainosus; I48.0 Paroxysmal atrial fibrillation; I10 Essential (primary) hypertension; K21.9 Gastro-esophageal reflux disease without esophagitis; E78.00 Pure hypercholesterolemia, unspecified; N40.0 Benign prostatic hyperplasia without lower urinary tract symptoms; N52.9 Male erectile dysfunction, unspecified; K50.90 Crohn's disease, unspecified, without complications; Z79.82 Long term (current) use of aspirin; Z79.4 Long term (current) use of insulin; Z79.891 Long term (current) use of opiate analgesic; Z79.899 Other long term (current) drug therapy; Z91.048 Other nonmedicinal substance allergy status
CPT/HCPCS: 20553; J3301

== ENCOUNTER → 2021-06-20 | Outpatient (CLI) | payer BC ==
[~2021-06-20] MED LIST changes: -BUPIVACAINE HCL 0.25% 10ML VIAL As Ordered ONE; -BUPIVACAINE HCL 0.25% 30ML VIAL As Ordered ONE; -TRIAMCINOLONE ACETONIDE SUSP 40 MG/ML VIAL (J3301) As Ordered ONE; -diazePAM 5MG TABLET As Ordered ONE; -oxyCODONE 5MG TAB As Ordered ONE
== END ==
LOC: M PAIN 14:15
PROVIDERS: ATTEND Anesthesiology
DX: G89.29 Other chronic pain (principal); M54.2 Cervicalgia; M47.812 Spondylosis without myelopathy or radiculopathy, cervical region; M54.6 Pain in thoracic spine; E11.9 Type 2 diabetes mellitus without complications; G43.909 Migraine, unspecified, not intractable, without status migrainosus; I48.0 Paroxysmal atrial fibrillation; I10 Essential (primary) hypertension; K21.9 Gastro-esophageal reflux disease without esophagitis; E78.00 Pure hypercholesterolemia, unspecified; N40.0 Benign prostatic hyperplasia without lower urinary tract symptoms; N52.9 Male erectile dysfunction, unspecified; K50.90 Crohn's disease, unspecified, without complications; Z79.82 Long term (current) use of aspirin; Z79.84 Long term (current) use of oral hypoglycemic drugs; Z91.048 Other nonmedicinal substance allergy status

== ENCOUNTER → 2021-06-28 | Outpatient (CLI) | payer BC | LOC: M RAD 17:47 | PROVIDERS: ATTEND Anesthesiology | DX: M54.6 Pain in thoracic spine (principal) ==

== ENCOUNTER → 2021-07-05 | Outpatient (CLI) | payer BC ==
--- NOTE | 2021-07-08 23:10 | ECWPNPC ---
PATIENT NAME: HAI DAIGLE : 1965 GENDER: MALE VISIT DATE: 07/05/2021 DISCHARGE DATE: 07/05/21 1326 VISIT LOCKED DATE TIME: PHYSICIAN: BONY ANTOINE MD RESOURCE: BONY ANTOINE MD REASON FOR APPOINTMENT 1. THORACIC MRI REVIEW HISTORY OF PRESENT ILLNESS GENERAL: 55-YEAR-OLD MALE PATIENT WITH A HISTORY OF CHRONIC THORACIC PAIN. THE PATIENT DESCRIBES THE PAIN ACHING, BURNING AND CONTINUOUS WITH A PAIN SCORE RANGING FROM 6-10/10. THIS IS AFFECTING HIS ABILITY TO WORK AND TO SLEEP. HE IS HAVING A HARD TIME. WE DID SOME TRIGGER POINT INJECTIONS THAT DID NOT HELP HIM. FALL RISK SCREENING: SCREENING : NO FALLS REPORTED IN THE LAST YEAR. PAIN SCREENING: PATIENT HAS A COMPLAINT OF ACUTE OR CHRONIC PAIN :YES LOCATION OF PAIN:NECK, BOTH SHOULDERS, MID BACK INTENSITY OF PAIN (SCALE OF 1 TO 10):6 WHAT DOES YOUR PAIN FEEL LIKE:ACHING, BURNING, CONTINOUS DURATION:CONTINOUS, CONSTANT, ALL DAY PAIN IS INCREASED BY:ACTIVITIES PAIN IS DECREASED BY:USE OF PAIN MEDICATIONS NURSING NOTE: -. PAIN CENTER INTAKE QUESTIONS: DO YOU HAVE A HISTORY OF MRSA? :NO DO YOU TAKE A BLOOD THINNERS? :NO DO YOU HAVE ANY BLEEDING DISORDERS? :NO ANY NEW NUMBNESS OR WEAKNESS IN YOUR LEGS OR ARMS? :YES LEFT SIDE OF ARMS AND LEGS, TINGLING IN FINGERS ANY PACEMAKER,DEFIBRILLATOR, OR DORSAL COLUMN STIMULATOR? :NO DO YOU HAVE ANY RASHES OR OPEN SORES? :NO ARE YOU ALLERGIC TO IV DYE? :NO ARE YOU DIABETIC? :YES ANY NEW PROBLEMS WITH YOUR MEDICATIONS? :NO HAVE YOU RECEIVED A VACCINE IN THE PAST 30 DAYS? :NO DO YOU PLAN TO RECEIVE A VACCINE IN THE NEXT 21 DAYS? :NO DO YOU NEED ANY PRESCRIPTION? :NO DO YOU TAKE ANY IMMUNOSUPPRESSIVE MEDICATIONS? :YES STELERA- EVERY 8 WEEKS - 07/07/2021 DO YOU HAVE ANY KIDNEY OR LIVER DISEASE? :NO IS THERE A CHANCE YOU COULD BE ? :NO ARE YOU BREAST FEEDING? :NO CURRENT MEDICATIONS TAKING ASPIR-81 81 MG TABLET DELAYED RELEASE 1 TABLET ORALLY DAILY TAKING CITRACAL PLUS 400MG TABLET 2 TABS ORALLY AT BEDTIME TAKING FLECAINIDE ACETATE 50 MG TABLET 1 TABLET ORALLY EVERY 12 HRS TAKING VITAMIN D3 MAXIMUM STRENGTH 5000 UNIT CAPSULE 1 CAPSULE ORALLY DAILY TAKING VITAMIN B-12 500 MCG TABLET 1 TABLET ORALLY SUN, TUES, , SAT TAKING TRULICITY 0.75 MG/0.5ML SOLUTION PEN-INJECTOR SUBCUTANEOUS WEEKLY, NOTES: FRIDAY TAKING METFORMIN HCL 1000 MG TABLET 1 TABLET WITH MEALS ORALLY TWICE DAILY, NOTES: 06/06/21 TAKING MAGNESIUM 400 MG CAPSULE 1 CAP ORALLY BID TAKING BISOPROLOL FUMARATE 5 MG TABLET 1 TABLET ORALLY ONCE A DAY, NOTES: 06/06/21 TAKING LIPITOR 10 MG TABLET 1 TABLET ORALLY ONCE A DAY TAKING MULTI FOR HIM TABLET 2 TABS ORALLY DAILY TAKING TAMSULOSIN HCL 0.4 MG CAPSULE 1 CAPSULE ONCE A DAY TAKING ZOFRAN 8 MG TABLET 1 TABLET ORALLY Q 8 HOURS NEEDED TAKING LOSARTAN POTASSIUM 50 MG TABLET 1 TABLET ORALLY ONCE A DAY TAKING DICYCLOMINE HCL 20 MG TABLET 1 TABLET NEEDED ORALLY QID, NOTES: OFF RIGHT NOW TAKING JARDIANCE 10 MG TABLET 1 TABLET ORALLY ONCE A DAY, NOTES: 06/06/21 TAKING POTASSIUM CHLORIDE 20 MEQ TABLET EXTENDED RELEASE 1 TABLET WITH FOOD ORALLY ONCE A DAY TAKING GABAPENTIN 300 MG CAPSULE 1 CAPSULE ORALLY BEFORE BEDTIME, NOTES: 06/06/21 TAKING TIZANIDINE HCL 2 MG TABLET 1 TABLET NEEDED ORALLY EVERY 8 HRS, NOTES: 06/06/21 TAKING CYMBALTA 60 MG CAPSULE DELAYED RELEASE PARTICLES 1 CAPSULE ORALLY BEFORE BEDTIME, NOTES: 06/06/21 TAKING PRILOSEC OTC 20 MG TABLET DELAYED RELEASE 1 TABLET 30 MINUTES BEFORE MORNING MEAL ORALLY ONCE A DAY TAKING TRAZODONE HCL 50 MG TABLET 1 TAB ORALLY BEFORE BEDTIME, NOTES: 06/04/21 TAKING STELARA 45 MG/0.5ML SOLUTION DIRECTED SUBCUTANEOUS , NOTES: 8 WEEKS AGO TAKING COLCRYS 0.6 MG TABLET 1 TABLET PRN ORALLY ONCE A DAY, NOTES: NONE LATELY TAKING SPIRONOLACTONE 25 MG TABLET 1/2 TABLET ORALLY ONCE A DAY, NOTES: ? TAKING DEPAKOTE 500 MG TABLET DELAYED RELEASE 1 TABLET ORALLY BEFORE BEDTIME TAKING VALIUM 5 MG TABLET 1 TABLET NEEDED ORALLY 1 HOUR PRIOR MRI TAKING PERCOCET 5-325 MG TABLET 1 TO 2 TAB ORALLY FOR PAIN Q6H PRN MDD 4, NOTES: FRIDAY TAKING CARISOPRODOL 350 MG TABLET 1 TABLET NEEDED ORALLY FOR SPASMS AND PAIN BID MDD2, NOTES: FRIDAY NOT-TAKING PERCOCET 5-325 MG TABLET 1 TABLET NEEDED ORALLY EVERY 6 HRS MDD4, NOTES: NONE RECENTLY NOT-TAKING AMLODIPINE BESYLATE 2.5 MG TABLET 1 TABLET ORALLY ONCE A DAY NOT-TAKING PRILOSEC 40 MG CAPSULE DELAYED RELEASE 1/2 CAPSULE ORALLY ONCE A DAY NOT-TAKING PROBIOTIC 1 CAPSULE 1 CAP ORALLY DAILY NOT-TAKING COLESTIPOL HCL 1 GM TABLET 1 TABLET ORALLY BID NOT-TAKING TOPIRAMATE 50 MG TABLET 1 TABLET ORALLY BEFORE BEDTIME NOT-TAKING ENTOCORT EC 3 MG CAPSULE DELAYED RELEASE PARTICLES DIRECTED ORALLY NOT-TAKING POTASSIUM BICARB & CHLORIDE 20 MEQ PACKET 2 TABS ORALLY TWICE A DAY NOT-TAKING HUMIRA 20 MG/0.4ML PREFILLED SYRINGE KIT DIRECTED SUBCUTANEOUS NOT-TAKING PREDNISONE 5 MG TABLET 1 TABLET ORALLY ONCE A DAY NOT-TAKING MELATONIN 5 MG TABLET 1 TABLET AT BEDTIME NEEDED WITH FOOD ORALLY ONCE A DAY, NOTES: PRN MEDICATION LIST REVIEWED AND RECONCILED WITH THE PATIENT PAST MEDICAL HISTORY DIABETES MIGRAINES PAF - INTERMITTENT A-FIB HTN GERD HIGH CHOLESTEROL GUILLAIN BARRE PNEUMONIA ILIEITIS A FIB WITH RVR DIVERTICULITIS BPH ED MULTIPLE GI PROBLEMS CHRON'S ALLERGIES SURGICAL GLUE: RASH, ITCHING - ALLERGY SURGICAL HISTORY BOWEL RESECTION 2013 RIGHT KNEE ARTHROSCOPY, LEFT ALSO DONE YEARS LATER 2013 GASTRIC BYPASS RIGHT INGUINAL HERNIA REPAIR 06/24/18 CHOLECYSTECTOMY 11/2018 EGD 12/2019 EXPLORATORY LAP 12/2019 SOCIAL HISTORY GENERAL: TOBACCO USE ARE YOU A:NONSMOKER LATEX QUESTIONNAIRE LATEX ALLERGY : HAVE YOU EVER DEVELOPED ANY TYPE OF REACTION AFTER HANDLING LATEX PRODUCTS SUCH RUBBER GLOVES, CONDOMS, DIAPHRAGMS, BALLOONS, SOCKS, OR UNDERWEAR?NO LATEX ALLERGY : HAVE YOU EVER DEVELOPED ANY TYPE OF REACTION DURING OR AFTER DENTAL APPOINTMENT, VAGINAL/RECTAL EXAMINATION, SURGICAL PROCEDURE, OR ANY OTHER EXPOSURE?NO LATEX RISK : HAVE YOU EVER HAD ANY DIFFICULTY BREATHING OR HIVES AFTER EATING OR HANDLING ANY FRUITS, OR VEGETABLES; SUCH KIWI, BANANAS, STONE FRUITS, OR CHESTNUTSNO LATEX RISK : DO YOU HAVE A PREVIOUS PERSONAL HISTORY OF MORE THAN NINE SURGERIES, SPINA BIFIDA, OR REPEATED CATHERIZATIONS? NO LATEX RISK : ARE YOU FREQUENTLY EXPOSED TO LATEX PRODUCTS IN YOUR OCCUPATION?NO DATE ASKED : 06/20/2021 ALCOHOL USE: NO. ALCOHOL SCREENING DID YOU HAVE A DRINK CONTAINING ALCOHOL IN THE PAST YEAR?YES HOW OFTEN DID YOU HAVE A DRINK CONTAINING ALCOHOL IN THE PAST YEAR?MONTHLY OR LESS (1 POINT) HOW MANY DRINKS DID YOU HAVE ON A TYPICAL DAY WHEN YOU WERE DRINKING IN THE PAST YEAR?1 OR 2 (0 POINTS) HOW OFTEN DID YOU HAVE SIX OR MORE DRINKS ON ONE OCCASION IN THE PAST YEAR?NEVER (0 POINTS) POINTS1 INTERPRETATIONNEGATIVE RECREATIONAL DRUG USE DRUG USE?NO CAFFEINE CAFFEINE USE?YES 1-2 SODA/DAY SEXUAL HX HAD SEX IN THE LAST 12 MONTHS (VAGINAL, ORAL, OR ANAL)?NO HAVE YOU EVER HAD AN STD?NO JEHOVAH'S WITNESS JEHOVAH'S WITNESS NO TENRIISM BELIEFS THAT WOULD IMPACT HEALTH CARE. 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 EXERCISE: WALKS. MARITAL STATUS: . OTHERS AT HOME: SPOUSE. - PFS REFERRAL NEEDED?NO CLERGY REFERRAL NEEDED?NO PUBLIC HEALTH REFERRAL NEEDED?NO WAS THE PROVIDER NOTIFIED OF ANY PERTINENT INFO?YES N/A HAS THE PATIENT BEEN EDUCATED REGARDING HIS/HER PLAN OF CARE?YES HAS THE PATIENT BEEN EDUCATED REGARDING PAIN, THE RISK FOR PAIN, THE IMPORTANCE OF EFFECTIVE PAIN MANAGEMENT, AND THE PAIN ASSESSMENT PROCESS?YES ADVANCE DIRECTIVE ADVANCE DIRECTIVE DISCUSSED WITH PATIENT:YES HCP ON FILE - AUDREY [phone] HOSPITALIZATION/MAJOR DIAGNOSTIC PROCEDURE SURGERY RELATED GUILLAIN BARRE REQUIRING PLASMAPHERESIS, IVIG, STEROIDS AND INTUBATION [facility] 09/2015 PNEUMONIA, ILEITIS 02/2018 REVIEW OF SYSTEMS CONSTITUTIONAL: ANY RECENT FEVER NO . CHILLS NO . WEIGHT CHANGE OF UNKNOWN REASONS NO . GASTROENTEROLOGY: NEW UNEXPLAINABLE CHANGES IN BOWEL CONTROL NO . CONSTIPATION NO . GENITOURINARY: ANY NEW CHANGE IN BLADDER CONTROL? NO . NEUROLOGY: NEW ONSET DIZZINESS OR NEUROLOGICAL CHANGES NOT MENTIONED NO . NEW NUMBNESS OR PAIN PATTERNS NOT MENTIONED AND PERTINENT TO TODAY'S VISIT NO . CARDIOLOGY: NEW CHEST PRESSURE NO . PATIENT DENIES NO . RESPIRATORY: UNEXPLAINABLE COUGH NO . NEW SHORTNESS OF BREATH NO . VITAL SIGNS WT 166.6 LBS, WT-KG 75.57 KG, HT 70 IN, BMI 23.90 INDEX, BP 145/84 MM HG, HR 72 /MIN, RR 18 /MIN, TEMP 97.6 F, OXYGEN SAT % 100%, SAFE IN ENV? (Y/N) YES, NA INITIALS AW 1156T.QUINN CLARK, AFTER WAITING 10 MIN TO RETAKE BLOOD PRESSURE, PATIENT IS AT 174/100. EXAMINATION GENERAL EXAMINATION: THE PATIENT IS ALERT, ORIENTED TIMES THREE AND COOPERATIVE. THERE IS TENDERNESS OVER THE FACET JOINTS FROM T1-T2 TO T6-T7. I CHECKED THE PATIENT UNDER X-RAY AND THE PAIN SEEMS TO BE WORSE AT THE FACET JOINTS OF T1-T2, T4-T5, T5-T6. THORACIC MRI DATED 06/28/2021 SHOWS THORACIC SPONDYLOSIS AND FACET ARTHROPATHY. ASSESSMENTS SPONDYLOSIS WITHOUT MYELOPATHY OR RADICULOPATHY, CERVICAL REGION - M47.812 THORACIC SPINE PAIN - M54.6 TREATMENT SPONDYLOSIS WITHOUT MYELOPATHY OR RADICULOPATHY, CERVICAL REGION [facility] GUIDANCE (PAIN)[id number] SALINE LOCK (ORDERED FOR 08/05/2021)[id number] NOTES: REVIEWED PRE PROCEDURE INFORMATION, PATIENT VERBALIZED UNDERSTANDING CODY CLARK. CLINICAL NOTES: I DISCUSSED ALTERNATIVES WITH MR. DAIGLE. I WILL REQUEST AUTHORIZATION FOR A BILATERAL THORACIC FACET BLOCK DIAGNOSTIC #1 C7-T1, T1-T2, T2-T3. I WILL CHECK THE PATIENT UNDER X-RAY THE DAY OF PROCEDURE AND I WILL BLOCK A MAXIMUM OF 2 LEVELS, BUT I WANT TO MAKE A FINAL DECISION THE DAY OF THE PROCEDURE. THE PATIENT REPORTS UNDERSTANDING AND AGREES WITH THE PLAN. I, SELAM VARELA, DOCUMENTED THE ABOVE INFORMATION ACTING A SCRIBE FOR DR. ANTOINE. I HAVE REVIEWED THE ABOVE DOCUMENT, WRITTEN BY SELAM VARELA, SENIOR SOFTWARE PROJECT MANAGER, AND I VERIFY THAT IT IS ACCURATE. VISIT CODES PROCEDURE CODES FA211 ESTABILISHED PATIENT [facility] FACILITY CHARGE [id number] OFFICE/OUTPATIENT VISIT EST DISPOSITION & COMMUNICATION FOLLOW UP REQUEST AUTH FOR BILATERAL DIAGNOSTIC FACET BLOCK C7-T1, T1-T2, T2-T3 #1 (REASON: REQUEST AUTH FOR BILATERAL DIAGNOSTIC FACET BLOCK C7-T1, T1-T2, T2-T3 #1) ELECTRONICALLY SIGNED BY BONY ANTOINE MD, MD ON 07/08/2021 AT 08:32 PM EDT DISCLAIMER : THIS IS A VISIT SUMMARY EXTRACTED FROM THE [employer] CHART. IT IS NOT A COPY OF THE [employer] PROGRESS NOTE. [facility]
== END ==
LOC: M PAIN 11:45
PROVIDERS: ATTEND Anesthesiology
DX: M47.812 Spondylosis without myelopathy or radiculopathy, cervical region (principal); M54.6 Pain in thoracic spine; E11.9 Type 2 diabetes mellitus without complications; G43.909 Migraine, unspecified, not intractable, without status migrainosus; I48.0 Paroxysmal atrial fibrillation; I10 Essential (primary) hypertension; K21.9 Gastro-esophageal reflux disease without esophagitis; E78.00 Pure hypercholesterolemia, unspecified; N40.0 Benign prostatic hyperplasia without lower urinary tract symptoms; N52.9 Male erectile dysfunction, unspecified; K50.90 Crohn's disease, unspecified, without complications; Z79.82 Long term (current) use of aspirin; Z79.4 Long term (current) use of insulin; Z79.899 Other long term (current) drug therapy; Z79.52 Long term (current) use of systemic steroids; Z91.048 Other nonmedicinal substance allergy status

== ENCOUNTER → 2021-07-18 | Outpatient (CLI) | payer BC ==
[~2021-07-18] MED LIST changes: -KLOR20TA42 PO; +POTA-141 PO
== END ==
LOC: M PAIN 08:30
PROVIDERS: ATTEND Anesthesiology
DX: M50.10 Cervical disc disorder with radiculopathy, unspecified cervical region (principal); M47.816 Spondylosis without myelopathy or radiculopathy, lumbar region; R52 Pain, unspecified; E11.9 Type 2 diabetes mellitus without complications; G43.909 Migraine, unspecified, not intractable, without status migrainosus; I48.0 Paroxysmal atrial fibrillation; I10 Essential (primary) hypertension; K21.9 Gastro-esophageal reflux disease without esophagitis; E78.00 Pure hypercholesterolemia, unspecified; N40.0 Benign prostatic hyperplasia without lower urinary tract symptoms; K50.90 Crohn's disease, unspecified, without complications; Z79.891 Long term (current) use of opiate analgesic; Z79.899 Other long term (current) drug therapy; Z79.84 Long term (current) use of oral hypoglycemic drugs

== ENCOUNTER → 2021-07-19 | Outpatient (CLI) | payer BC ==
--- NOTE | 2021-07-19 08:52 | REPVR ---
PROCEDURE INFORMATION: Exam: MR Cervical Spine Without Contrast Exam date and time: 07/19/2021 8:34 AM Age: 55 years old Clinical indication: Neck pain; Additional info: Disc disorder, radiculopathy TECHNIQUE: Imaging protocol: Multiplanar magnetic resonance images of the cervical spine without contrast. COMPARISON: MRI-Spine,Cervical without con 01/05/2019 9:53 AM FINDINGS: Vertebrae: There is accentuation of the cervical lordosis. There is no fracture or listhesis. Spinal cord: Normal signal. No cord compression. C2-C3: No significant disc disease. No significant spinal stenosis. C3-C4: No significant disc disease. No significant spinal stenosis. C4-C5: There is a shallow disc osteophyte complex. There is mild facet hypertrophy. There is moderate left neural foraminal narrowing. C5-C6: There is a shallow disc osteophyte complex. There is mild facet hypertrophy. There is mild bilateral neural foraminal narrowing. C6-C7: There is a shallow disc osteophyte complex. There is [id number] facet hypertrophy. There is mild to moderate bilateral neural foraminal narrowing. C7-T1: No significant disc disease. No significant spinal stenosis. Soft tissues: Unremarkable. Vertebral arteries: Expected flow voids in the vertebral arteries. IMPRESSION: Mild degenerative disc disease and spondylosis. Changes contribute to multilevel [id number] neural foraminal narrowing. Electronically signed by: Yanna Cruz On 07/19/2021 08:52:06 AM
== END ==
LOC: M PLAIMG 07:46
PROVIDERS: ATTEND Anesthesiology
DX: M50.10 Cervical disc disorder with radiculopathy, unspecified cervical region (principal); R52 Pain, unspecified

== ENCOUNTER → 2021-07-20 | Outpatient (CLI) | payer BC | LOC: M PAIN 09:15 | PROVIDERS: ATTEND Anesthesiology | DX: M50.10 Cervical disc disorder with radiculopathy, unspecified cervical region (principal); E11.9 Type 2 diabetes mellitus without complications; G43.909 Migraine, unspecified, not intractable, without status migrainosus; I48.0 Paroxysmal atrial fibrillation; I10 Essential (primary) hypertension; K21.9 Gastro-esophageal reflux disease without esophagitis; E78.00 Pure hypercholesterolemia, unspecified; N40.0 Benign prostatic hyperplasia without lower urinary tract symptoms; K50.90 Crohn's disease, unspecified, without complications; Z79.82 Long term (current) use of aspirin; Z79.891 Long term (current) use of opiate analgesic; Z79.899 Other long term (current) drug therapy ==

== ENCOUNTER → 2021-07-20 | Outpatient (CLI) | payer BC | LOC: M LABSMTC 10:54 | PROVIDERS: ATTEND Anesthesiology | DX: Z20.822 Contact with and (suspected) exposure to COVID-19 (principal) ==

== ENCOUNTER → 2021-07-24 | Outpatient (CLI) | payer BC ==
[~2021-07-24] MED LIST changes: +ISOVUE-M 300 61% 15ML VIAL As Ordered ONE; +LIDOCAINE 1% SDV 30ML VIAL As Ordered ONE; +diazePAM 5MG TABLET As Ordered ONE; +methylPREDNISolone SUSP 40MG/ML 1ML VIAL (DEPO MEDROL) As Ordered ONE; +oxyCODONE 5MG TAB As Ordered ONE
--- NOTE | 2021-07-24 13:34 | REP ---
INDICATION: CERVICAL EPIDURAL STEROID INJECTION. COMPARISON: None. TECHNIQUE: Three views cervicothoracic region. FINDINGS: A needle is seen at the cervicothoracic junction. Contrast is injected. IMPRESSION: 17 seconds of fluoroscopy time was utilized. <Electronically signed by Tom Buck > 07/24/21 [id number]
== END ==
LOC: M PAIN 10:20
PROVIDERS: ATTEND Anesthesiology
DX: M50.10 Cervical disc disorder with radiculopathy, unspecified cervical region (principal); E11.9 Type 2 diabetes mellitus without complications; G43.909 Migraine, unspecified, not intractable, without status migrainosus; I48.0 Paroxysmal atrial fibrillation; I10 Essential (primary) hypertension; K21.9 Gastro-esophageal reflux disease without esophagitis; E78.00 Pure hypercholesterolemia, unspecified; N40.0 Benign prostatic hyperplasia without lower urinary tract symptoms; N52.9 Male erectile dysfunction, unspecified; K50.90 Crohn's disease, unspecified, without complications; Z79.82 Long term (current) use of aspirin; Z79.891 Long term (current) use of opiate analgesic; Z98.84 Bariatric surgery status; Z90.49 Acquired absence of other specified parts of digestive tract
CPT/HCPCS: 62321; J1030; Q9967

== ENCOUNTER → 2021-07-30 | Outpatient (CLI) | payer BC ==
[~2021-07-30] MED LIST changes: -ISOVUE-M 300 61% 15ML VIAL As Ordered ONE; -LIDOCAINE 1% SDV 30ML VIAL As Ordered ONE; -diazePAM 5MG TABLET As Ordered ONE; -methylPREDNISolone SUSP 40MG/ML 1ML VIAL (DEPO MEDROL) As Ordered ONE; -oxyCODONE 5MG TAB As Ordered ONE
== END ==
LOC: M PAIN 13:20
PROVIDERS: ATTEND Anesthesiology
DX: M79.18 Myalgia, other site (principal); E11.9 Type 2 diabetes mellitus without complications; G43.909 Migraine, unspecified, not intractable, without status migrainosus; I48.0 Paroxysmal atrial fibrillation; I10 Essential (primary) hypertension; K21.9 Gastro-esophageal reflux disease without esophagitis; E78.00 Pure hypercholesterolemia, unspecified; N40.0 Benign prostatic hyperplasia without lower urinary tract symptoms; N52.9 Male erectile dysfunction, unspecified; K50.90 Crohn's disease, unspecified, without complications; Z91.048 Other nonmedicinal substance allergy status

== ENCOUNTER → 2021-08-02 | Outpatient (CLI) | payer BC | LOC: M LABSMTC 11:20 | PROVIDERS: ATTEND Anesthesiology | DX: Z11.52 Encounter for screening for COVID-19 (principal); Z20.822 Contact with and (suspected) exposure to COVID-19 ==

== ENCOUNTER → 2021-08-07 | Outpatient (CLI) | payer BC ==
[~2021-08-07] MED LIST changes: +BUPIVACAINE HCL 0.25% 10ML VIAL As Ordered ONE; +BUPIVACAINE HCL 0.25% 30ML VIAL As Ordered ONE; +TRIAMCINOLONE ACETONIDE SUSP 40 MG/ML VIAL (J3301) As Ordered ONE; +diazePAM 5MG TABLET As Ordered ONE; +oxyCODONE 5MG TAB As Ordered ONE
== END ==
LOC: M PAIN 09:15
PROVIDERS: ATTEND Anesthesiology
DX: M79.18 Myalgia, other site (principal); E11.9 Type 2 diabetes mellitus without complications; G43.909 Migraine, unspecified, not intractable, without status migrainosus; I48.0 Paroxysmal atrial fibrillation; I10 Essential (primary) hypertension; K21.9 Gastro-esophageal reflux disease without esophagitis; E78.00 Pure hypercholesterolemia, unspecified; N40.0 Benign prostatic hyperplasia without lower urinary tract symptoms; N52.9 Male erectile dysfunction, unspecified; K50.90 Crohn's disease, unspecified, without complications; Z79.82 Long term (current) use of aspirin; Z79.84 Long term (current) use of oral hypoglycemic drugs; Z79.899 Other long term (current) drug therapy; Z91.048 Other nonmedicinal substance allergy status
CPT/HCPCS: 20553; J3301

== ENCOUNTER → 2021-08-15 | Outpatient (CLI) | payer BC ==
[~2021-08-15] MED LIST changes: -BUPIVACAINE HCL 0.25% 10ML VIAL As Ordered ONE; -BUPIVACAINE HCL 0.25% 30ML VIAL As Ordered ONE; -TRIAMCINOLONE ACETONIDE SUSP 40 MG/ML VIAL (J3301) As Ordered ONE; -diazePAM 5MG TABLET As Ordered ONE; -oxyCODONE 5MG TAB As Ordered ONE
--- NOTE | 2021-08-15 11:22 | REP ---
INDICATION: DETERMINE PROCEDURE. COMPARISON: None. TECHNIQUE: A single view. 4 seconds of fluoroscopy time is reported. FINDINGS: A single last image hold fluoroscopically obtained spot radiograph of the cervicothoracic junction documents needle position. IMPRESSION: Procedural imaging. <Electronically signed by Alfredo Stanley > 08/15/21 [id number]
== END ==
LOC: M PAIN 08:30
PROVIDERS: ATTEND Anesthesiology
DX: G89.29 Other chronic pain (principal); M47.812 Spondylosis without myelopathy or radiculopathy, cervical region; E11.9 Type 2 diabetes mellitus without complications; G43.909 Migraine, unspecified, not intractable, without status migrainosus; I48.0 Paroxysmal atrial fibrillation; I10 Essential (primary) hypertension; K21.9 Gastro-esophageal reflux disease without esophagitis; E78.00 Pure hypercholesterolemia, unspecified; N40.0 Benign prostatic hyperplasia without lower urinary tract symptoms; K50.90 Crohn's disease, unspecified, without complications; N52.9 Male erectile dysfunction, unspecified; Z79.84 Long term (current) use of oral hypoglycemic drugs; Z79.891 Long term (current) use of opiate analgesic; Z79.899 Other long term (current) drug therapy; Z91.048 Other nonmedicinal substance allergy status

== ENCOUNTER → 2021-10-16 | Outpatient (CLI) | payer BC ==
[~2021-10-16] MED LIST changes: -CYMB60CA3 PO; +CYMB60CA4 PO; +LOSA50TA28 PO; -LOSA50TA88 PO
== END ==
LOC: M PAIN 09:30
PROVIDERS: ATTEND Anesthesiology
DX: M47.812 Spondylosis without myelopathy or radiculopathy, cervical region (principal); E11.9 Type 2 diabetes mellitus without complications; G43.909 Migraine, unspecified, not intractable, without status migrainosus; I48.0 Paroxysmal atrial fibrillation; I10 Essential (primary) hypertension; K21.9 Gastro-esophageal reflux disease without esophagitis; E78.00 Pure hypercholesterolemia, unspecified; N40.0 Benign prostatic hyperplasia without lower urinary tract symptoms; N52.9 Male erectile dysfunction, unspecified; K50.90 Crohn's disease, unspecified, without complications; Z79.891 Long term (current) use of opiate analgesic; Z79.82 Long term (current) use of aspirin; Z79.84 Long term (current) use of oral hypoglycemic drugs; Z79.899 Other long term (current) drug therapy; Z91.048 Other nonmedicinal substance allergy status

== ENCOUNTER → 2021-11-15 | Outpatient (CLI) | payer BC ==
[~2021-11-15] MED LIST changes: -LOSA50TA28 PO; +LOSA50TA88 PO
== END ==
LOC: M LABSMTC 11:31
PROVIDERS: ATTEND Anesthesiology
DX: Z01.818 Encounter for other preprocedural examination (principal); Z11.52 Encounter for screening for COVID-19

== ENCOUNTER → 2021-11-15 | Outpatient (CLI) | payer BC ==
[~2021-11-15] MED LIST changes: +LOSA50TA28 PO; -LOSA50TA88 PO
== END ==
LOC: M PAIN 15:45
PROVIDERS: ATTEND Anesthesiology
DX: M47.812 Spondylosis without myelopathy or radiculopathy, cervical region (principal); G89.29 Other chronic pain; E11.9 Type 2 diabetes mellitus without complications; Z79.82 Long term (current) use of aspirin; Z79.84 Long term (current) use of oral hypoglycemic drugs; Z79.891 Long term (current) use of opiate analgesic; Z79.899 Other long term (current) drug therapy

== ENCOUNTER → 2021-11-20 | Outpatient (CLI) | payer BC ==
[~2021-11-20] MED LIST changes: +BUPIVACAINE HCL 0.25% 30ML VIAL As Ordered ONE; +ISOVUE-M 300 61% 15ML VIAL As Ordered ONE; +LIDOCAINE 1% SDV 30ML VIAL As Ordered ONE
== END ==
LOC: M PAIN 13:00
PROVIDERS: ATTEND Anesthesiology
DX: M47.812 Spondylosis without myelopathy or radiculopathy, cervical region (principal); M47.813 Spondylosis without myelopathy or radiculopathy, cervicothoracic region; E11.9 Type 2 diabetes mellitus without complications; G43.909 Migraine, unspecified, not intractable, without status migrainosus; I48.0 Paroxysmal atrial fibrillation; I10 Essential (primary) hypertension; K21.9 Gastro-esophageal reflux disease without esophagitis; E78.00 Pure hypercholesterolemia, unspecified; N40.0 Benign prostatic hyperplasia without lower urinary tract symptoms; N52.9 Male erectile dysfunction, unspecified; K50.90 Crohn's disease, unspecified, without complications; G61.0 Guillain-Barre syndrome; Z79.899 Other long term (current) drug therapy; Z79.82 Long term (current) use of aspirin; Z79.891 Long term (current) use of opiate analgesic; Z79.84 Long term (current) use of oral hypoglycemic drugs; Z91.048 Other nonmedicinal substance allergy status
CPT/HCPCS: 64490; 64491; Q9967

== ENCOUNTER → 2021-12-06 | Outpatient (CLI) | payer BC ==
[~2021-12-06] MED LIST changes: -BUPIVACAINE HCL 0.25% 30ML VIAL As Ordered ONE; -ISOVUE-M 300 61% 15ML VIAL As Ordered ONE; -LIDOCAINE 1% SDV 30ML VIAL As Ordered ONE
== END ==
LOC: M LABSMTC 12:18
PROVIDERS: ATTEND Pediatrics
DX: Z11.52 Encounter for screening for COVID-19 (principal)
CPT/HCPCS: C9803; U0003

== ENCOUNTER → 2021-12-12 | Outpatient (CLI) | payer BC | LOC: M PAIN 11:30 | PROVIDERS: ATTEND Anesthesiology | DX: M47.812 Spondylosis without myelopathy or radiculopathy, cervical region (principal); M47.813 Spondylosis without myelopathy or radiculopathy, cervicothoracic region; E11.9 Type 2 diabetes mellitus without complications; G43.909 Migraine, unspecified, not intractable, without status migrainosus; I48.0 Paroxysmal atrial fibrillation; I10 Essential (primary) hypertension; K21.9 Gastro-esophageal reflux disease without esophagitis; E78.00 Pure hypercholesterolemia, unspecified; N40.0 Benign prostatic hyperplasia without lower urinary tract symptoms; N52.9 Male erectile dysfunction, unspecified; K50.90 Crohn's disease, unspecified, without complications; G61.0 Guillain-Barre syndrome; Z79.899 Other long term (current) drug therapy; Z79.82 Long term (current) use of aspirin; Z79.891 Long term (current) use of opiate analgesic; Z79.84 Long term (current) use of oral hypoglycemic drugs; Z91.048 Other nonmedicinal substance allergy status ==

== ENCOUNTER → 2022-01-08 | Outpatient (CLI) | payer BC ==
[~2022-01-08] MED LIST changes: +BUPIVACAINE HCL 0.25% 30ML VIAL As Ordered ONE; +ISOVUE-M 300 61% 15ML VIAL As Ordered ONE; +LIDOCAINE 1% SDV 30ML VIAL As Ordered ONE
== END ==
LOC: M PAIN 14:20
PROVIDERS: ATTEND Anesthesiology
DX: M47.812 Spondylosis without myelopathy or radiculopathy, cervical region (principal); M47.813 Spondylosis without myelopathy or radiculopathy, cervicothoracic region; E11.9 Type 2 diabetes mellitus without complications; G43.909 Migraine, unspecified, not intractable, without status migrainosus; I48.0 Paroxysmal atrial fibrillation; I10 Essential (primary) hypertension; K21.9 Gastro-esophageal reflux disease without esophagitis; E78.00 Pure hypercholesterolemia, unspecified; N40.0 Benign prostatic hyperplasia without lower urinary tract symptoms; N52.9 Male erectile dysfunction, unspecified; K50.90 Crohn's disease, unspecified, without complications; G61.0 Guillain-Barre syndrome; Z79.899 Other long term (current) drug therapy; Z79.82 Long term (current) use of aspirin; Z79.891 Long term (current) use of opiate analgesic; Z79.84 Long term (current) use of oral hypoglycemic drugs; Z91.048 Other nonmedicinal substance allergy status
CPT/HCPCS: 64490; 64491; Q9967

== ENCOUNTER → 2022-01-08 | Outpatient (CLI) | payer BC ==
[~2022-01-08] MED LIST changes: -BUPIVACAINE HCL 0.25% 30ML VIAL As Ordered ONE; -ISOVUE-M 300 61% 15ML VIAL As Ordered ONE; -LIDOCAINE 1% SDV 30ML VIAL As Ordered ONE
[2022-01-08 17:45] LABS: HEMATOCRIT 43.2 % (42.0-52.0); MEAN CORPUSCULAR HEMOGLOBIN 29.7 pg (27.0-33.0); MEAN CORPUSCULAR HGB CONC 32.4 g/dl (32.0-36.5); MEAN CORPUSCULAR VOLUME 91.5 fl (80.0-96.0); PLATELET COUNT, AUTOMATED 180 10^3/uL (150-450); RED BLOOD COUNT 4.72 10^6/uL (4.30-6.10); WHITE BLOOD COUNT 3.3 10^3/uL (4.0-10.0)
[2022-01-08 18:20] LABS: ERYTHROCYTE SEDIMENTATION RATE 3 mm/hr (0-20)
[2022-01-08 18:21] LABS: ALBUMIN 3.3 GM/DL (3.2-5.2); ALT/SGPT 19 U/L (12-78); BILIRUBIN,TOTAL 0.4 MG/DL (0.2-1.0); BLOOD UREA NITROGEN 12 MG/DL (7-18); CALCIUM LEVEL 8.7 MG/DL (8.5-10.1); CARBON DIOXIDE LEVEL 32 MEQ/L (21-32); CHLORIDE LEVEL 105 MEQ/L (98-107); CREATININE FOR GFR 0.89 MG/DL (0.70-1.30); GLOMERULAR FILTRATION RATE > 60.0 (>56); GLUCOSE, FASTING 250 MG/DL (70-100); SODIUM LEVEL 141 MEQ/L (136-145); TOTAL PROTEIN 5.5 GM/DL (6.4-8.2)
== END ==
LOC: M ADAMS 13:05
PROVIDERS: ATTEND Internal Medicine Gastroenterology
DX: R10.31 Right lower quadrant pain (principal); R10.12 Left upper quadrant pain; K50.00 Crohn's disease of small intestine without complications; R11.0 Nausea

== ENCOUNTER → 2022-01-10 | Outpatient (CLI) | payer BC ==
[~2022-01-10] MED LIST changes: +GLUCAGON INJ 1MG VIAL As Ordered ONE; +ISOVUE-370 76% 100ML VIAL As Ordered ONE; +NEULUMEX 0.1% SUSPENSION 450ML BOTTLE (FORMERLY VOLUMEN) As Ordered ONE
== END ==
LOC: M RAD 14:49
PROVIDERS: ATTEND Internal Medicine Gastroenterology
DX: R10.31 Right lower quadrant pain (principal); K50.00 Crohn's disease of small intestine without complications; R12 Heartburn; R11.0 Nausea

== ENCOUNTER → 2022-01-15 | Outpatient (CLI) | payer BC ==
[~2022-01-15] MED LIST changes: -GLUCAGON INJ 1MG VIAL As Ordered ONE; -ISOVUE-370 76% 100ML VIAL As Ordered ONE; -NEULUMEX 0.1% SUSPENSION 450ML BOTTLE (FORMERLY VOLUMEN) As Ordered ONE
== END ==
LOC: M PAIN 15:15
PROVIDERS: ATTEND Anesthesiology
DX: M47.812 Spondylosis without myelopathy or radiculopathy, cervical region (principal); E11.9 Type 2 diabetes mellitus without complications; G43.909 Migraine, unspecified, not intractable, without status migrainosus; I48.0 Paroxysmal atrial fibrillation; I10 Essential (primary) hypertension; E78.00 Pure hypercholesterolemia, unspecified; N40.0 Benign prostatic hyperplasia without lower urinary tract symptoms; N52.9 Male erectile dysfunction, unspecified; K50.90 Crohn's disease, unspecified, without complications; Z79.82 Long term (current) use of aspirin; Z79.84 Long term (current) use of oral hypoglycemic drugs; Z79.891 Long term (current) use of opiate analgesic; Z79.52 Long term (current) use of systemic steroids; Z91.048 Other nonmedicinal substance allergy status

== ENCOUNTER → 2022-02-07 | Outpatient (CLI) | payer BC ==
[2022-02-07 15:24] LABS: BASO % 0.4 % (0.0-1.0); EOS # 0.1 10^3/uL (0.0-0.5); EOS % 1.6 % (0.0-3.0); HEMOGLOBIN 14.6 g/dl (13.5-17.5); LYMPH # 1.3 10^3/uL (1.5-5.0); LYMPH % 25.4 % (24.0-44.0); MEAN CORPUSCULAR HEMOGLOBIN 29.8 pg (27.0-33.0); MEAN CORPUSCULAR HGB CONC 33.2 g/dl (32.0-36.5); MEAN CORPUSCULAR VOLUME 89.8 fl (80.0-96.0); MONO # 0.4 10^3/uL (0.0-0.8); MONO % 8.5 % (2.0-8.0); NEUTROPHILS # 3.2 10^3/uL (1.5-8.5); NEUTROPHILS % 63.7 % (36.0-66.0); PLATELET COUNT, AUTOMATED 180 10^3/uL (150-450)
[2022-02-07 15:48] LABS: ERYTHROCYTE SEDIMENTATION RATE 2 mm/hr (0-20)
[2022-02-07 16:05] LABS: ALBUMIN 3.4 GM/DL (3.2-5.2); ALT/SGPT 22 U/L (12-78); BILIRUBIN,TOTAL 0.6 MG/DL (0.2-1.0); BLOOD UREA NITROGEN 14 MG/DL (7-18); CARBON DIOXIDE LEVEL 31 MEQ/L (21-32); CHLORIDE LEVEL 108 MEQ/L (98-107); CREATININE FOR GFR 0.83 MG/DL (0.70-1.30); GLOMERULAR FILTRATION RATE > 60.0 (>56); GLUCOSE, FASTING 101 MG/DL (70-100); POTASSIUM SERUM 4.3 MEQ/L (3.5-5.1); RHEUMATOID FACTOR QUANT < 10.0 IU/ML (<15.0); SODIUM LEVEL 143 MEQ/L (136-145); TOTAL PROTEIN 5.6 GM/DL (6.4-8.2)
== END ==
LOC: M PLALAB 13:07
PROVIDERS: ATTEND Internal Medicine Rheumatology
DX: K50.914 Crohn's disease, unspecified, with abscess (principal); M54.6 Pain in thoracic spine

== ENCOUNTER → 2022-02-12 | Outpatient (REF) | payer BC | LOC: M LAB REF 16:19 | PROVIDERS: ATTEND Anesthesiology | DX: Z01.812 Encounter for preprocedural laboratory examination (principal); Z11.52 Encounter for screening for COVID-19 ==

== ENCOUNTER → 2022-03-07 | Outpatient (CLI) | payer BC | LOC: M PAIN 15:00 | PROVIDERS: ATTEND Anesthesiology | DX: M47.812 Spondylosis without myelopathy or radiculopathy, cervical region (principal); E11.9 Type 2 diabetes mellitus without complications; G43.909 Migraine, unspecified, not intractable, without status migrainosus; I48.0 Paroxysmal atrial fibrillation; I10 Essential (primary) hypertension; K21.9 Gastro-esophageal reflux disease without esophagitis; E78.00 Pure hypercholesterolemia, unspecified; N40.0 Benign prostatic hyperplasia without lower urinary tract symptoms; N52.9 Male erectile dysfunction, unspecified; K50.90 Crohn's disease, unspecified, without complications; Z79.82 Long term (current) use of aspirin; Z79.84 Long term (current) use of oral hypoglycemic drugs; Z79.899 Other long term (current) drug therapy; Z79.52 Long term (current) use of systemic steroids; Z91.048 Other nonmedicinal substance allergy status ==

== ENCOUNTER → 2022-04-12 | Outpatient (CLI) | payer BC ==
[~2022-04-12] MED LIST changes: +ALBU2.5V10 NEB; -ALBU83IN NEB
== END ==
LOC: M PAIN 12:30
PROVIDERS: ATTEND Anesthesiology
DX: M79.18 Myalgia, other site (principal); M47.812 Spondylosis without myelopathy or radiculopathy, cervical region; E11.9 Type 2 diabetes mellitus without complications; G43.909 Migraine, unspecified, not intractable, without status migrainosus; I48.0 Paroxysmal atrial fibrillation; I10 Essential (primary) hypertension; K21.9 Gastro-esophageal reflux disease without esophagitis; E78.00 Pure hypercholesterolemia, unspecified; N40.0 Benign prostatic hyperplasia without lower urinary tract symptoms; N52.9 Male erectile dysfunction, unspecified; K50.90 Crohn's disease, unspecified, without complications; Z79.82 Long term (current) use of aspirin; Z79.84 Long term (current) use of oral hypoglycemic drugs; Z79.899 Other long term (current) drug therapy; Z79.52 Long term (current) use of systemic steroids; Z91.048 Other nonmedicinal substance allergy status

== ENCOUNTER → 2022-05-07 | Outpatient (CLI) | payer BC | LOC: M LABSMTC 11:04 | PROVIDERS: ATTEND Anesthesiology | DX: Z01.812 Encounter for preprocedural laboratory examination (principal); Z11.52 Encounter for screening for COVID-19 ==

== ENCOUNTER → 2022-05-10 | Outpatient (CLI) | payer BC ==
[~2022-05-10] MED LIST changes: +BUPIVACAINE HCL 0.25% 10ML VIAL As Ordered ONE; +BUPIVACAINE HCL 0.25% 30ML VIAL As Ordered ONE; +TRIAMCINOLONE ACETONIDE SUSP 40 MG/ML VIAL (J3301) As Ordered ONE; +diazePAM 5MG TABLET As Ordered ONE; +oxyCODONE 5MG TAB As Ordered ONE
== END ==
LOC: M PAIN 08:30
PROVIDERS: ATTEND Anesthesiology
DX: M79.18 Myalgia, other site (principal); M47.812 Spondylosis without myelopathy or radiculopathy, cervical region; E11.9 Type 2 diabetes mellitus without complications; G43.909 Migraine, unspecified, not intractable, without status migrainosus; I48.0 Paroxysmal atrial fibrillation; I10 Essential (primary) hypertension; K21.9 Gastro-esophageal reflux disease without esophagitis; E78.00 Pure hypercholesterolemia, unspecified; N40.0 Benign prostatic hyperplasia without lower urinary tract symptoms; N52.9 Male erectile dysfunction, unspecified; K50.90 Crohn's disease, unspecified, without complications; Z79.82 Long term (current) use of aspirin; Z79.84 Long term (current) use of oral hypoglycemic drugs; Z79.899 Other long term (current) drug therapy; Z79.52 Long term (current) use of systemic steroids; Z91.048 Other nonmedicinal substance allergy status
CPT/HCPCS: 20552; J3301

== ENCOUNTER → 2022-05-15 | Outpatient (CLI) | payer BC ==
[~2022-05-15] MED LIST changes: -BUPIVACAINE HCL 0.25% 10ML VIAL As Ordered ONE; -BUPIVACAINE HCL 0.25% 30ML VIAL As Ordered ONE; -TRIAMCINOLONE ACETONIDE SUSP 40 MG/ML VIAL (J3301) As Ordered ONE; -diazePAM 5MG TABLET As Ordered ONE; -oxyCODONE 5MG TAB As Ordered ONE
== END ==
LOC: M PLAIMG 07:02
PROVIDERS: ATTEND Physician Assistant
DX: M51.24 Other intervertebral disc displacement, thoracic region (principal); M51.44 Schmorl's nodes, thoracic region

== ENCOUNTER 2022-05-26 19:02 | Emergency (ER) | payer BC ==
[~2022-05-26] VITALS: Ht 177.8 cm; Wt 77.3 kg
[2022-05-26] MEDS: NITROGLYCERIN 0.4 MG SUBL TABLET SL PRN ×3 (19:45→19:56)
[2022-05-26 19:48] LABS: BASO % 0.3 % (0.0-1.0); EOS % 0.2 % (0.0-3.0); HEMATOCRIT 43.5 % (42.0-52.0); HEMOGLOBIN 14.8 g/dl (13.5-17.5); LYMPH # 0.9 10^3/uL (1.5-5.0); LYMPH % 15.7 % (24.0-44.0); MEAN CORPUSCULAR HEMOGLOBIN 30.8 pg (27.0-33.0); MEAN CORPUSCULAR VOLUME 90.6 fl (80.0-96.0); MONO # 0.6 10^3/uL (0.0-0.8); MONO % 10.1 % (2.0-8.0); NEUTROPHILS # 4.3 10^3/uL (1.5-8.5); NEUTROPHILS % 73.5 % (36.0-66.0); PLATELET COUNT, AUTOMATED 193 10^3/uL (150-450); WHITE BLOOD COUNT 5.9 10^3/uL (4.0-10.0)
[2022-05-26 19:56] VITALS: BP 144/81
[2022-05-26 19:58] LABS: PROTHROMBIN TIME 13.6 SECONDS (12.7-14.5)
[2022-05-26 19:59] LABS: PARTIAL THROMBOPLASTIN TIME 35.6 SECONDS (25.9-37.0)
[2022-05-26] MEDS ORDERED: MORPHINE 4 MG/ML 1ML VIAL/SYRINGE As Ordered ONE (20:04)
[2022-05-26] MEDS ORDERED: ONDANSETRON 4MG 2ML VIAL As Ordered ONE (20:05)
[2022-05-26 20:12] LABS: ALBUMIN 3.6 GM/DL (3.2-5.2); ALT/SGPT 15 U/L (12-78); BILIRUBIN,DIRECT 0.3 MG/DL (0.0-0.2); BLOOD UREA NITROGEN 14 MG/DL (7-18); CALCIUM LEVEL 8.9 MG/DL (8.5-10.1); CARBON DIOXIDE LEVEL 30 MEQ/L (21-32); CHLORIDE LEVEL 104 MEQ/L (98-107); CREATININE FOR GFR 0.75 MG/DL (0.70-1.30); GLOMERULAR FILTRATION RATE > 60.0 (>56); GLUCOSE, FASTING 142 MG/DL (70-100); NT-PRO BNP 3862 PG/ML (<125); SODIUM LEVEL 140 MEQ/L (136-145); TOTAL PROTEIN 6.2 GM/DL (6.4-8.2)
[2022-05-26 20:15] LABS: CK-MB VALUE MASS 30.1 NG/ML (<3.6); MB/CK RELATIVE INDEX 11.11 (< OR =4)
[2022-05-26] MEDS ORDERED: HEPARIN DRIP 25,000 UNITS in IV 1 EA IV SCH (20:25)
[2022-05-26] MEDS ORDERED: TENECTEPLASE 50 MG KIT (TNKase) (J3101 PER 1MG) IV ONE (20:25)
[2022-05-26] MEDS ORDERED: ASPIRIN 81 MG CHEW TABLET PO ONE (20:25)
[2022-05-26] MEDS ORDERED: ISOVUE-370 76% 100ML VIAL As Ordered ONE (20:34)
[2022-05-26] MEDS ORDERED: ONDANSETRON 4MG 2ML VIAL IV ONE (20:35)
[2022-05-26] MEDS ORDERED: MORPHINE 4 MG/ML 1ML VIAL/SYRINGE IV ONE ×2 (20:35→21:40)
[2022-05-26 21:29] LABS: RSV AMPLIFICATION NEGATIVE (NEGATIVE)
[2022-05-26 21:46] VITALS: BP 134/79
[2022-05-26 21:49] LABS: CK-MB VALUE MASS 26.9 NG/ML (<3.6); MB/CK RELATIVE INDEX 10.67 (< OR =4)
== END 2022-05-26 21:57 | disposition short-term general hospital (02) ==
LOC: M ED 19:02
DX: I21.3 ST elevation (STEMI) myocardial infarction of unspecified site (principal); E11.9 Type 2 diabetes mellitus without complications; I10 Essential (primary) hypertension; E78.5 Hyperlipidemia, unspecified; Z98.84 Bariatric surgery status; Z88.7 Allergy status to serum and vaccine; Z79.899 Other long term (current) drug therapy; Z79.82 Long term (current) use of aspirin; Z79.84 Long term (current) use of oral hypoglycemic drugs
CPT/HCPCS: 71045; 71275; 74177; 80048; 80076; 82550; 82553; 83880; 84484; 85025; 85610; 85730; 87631; 93005; 93041; 94760; 96374; 96375; 96376; 99285; J1644; J2270; J2405; J3101; Q9967

== ENCOUNTER → 2022-05-26 | Outpatient (CLI) | payer BC ==
[2022-05-26 12:30] LABS: BLOOD UREA NITROGEN 14 MG/DL (7-18); CALCIUM LEVEL 8.9 MG/DL (8.5-10.1); CARBON DIOXIDE LEVEL 29 MEQ/L (21-32); CHLORIDE LEVEL 103 MEQ/L (98-107); CREATININE FOR GFR 0.74 MG/DL (0.70-1.30); GLOMERULAR FILTRATION RATE > 60.0 (>56); GLUCOSE, FASTING 94 MG/DL (70-100); POTASSIUM SERUM 4.2 MEQ/L (3.5-5.1); SODIUM LEVEL 140 MEQ/L (136-145)
== END ==
LOC: M LAB 11:30
PROVIDERS: ATTEND Internal Medicine Cardiovascular Disease
DX: I10 Essential (primary) hypertension (principal)

== ENCOUNTER → 2022-06-10 | Outpatient (CLI) | payer BC | LOC: M PAIN 08:30 | PROVIDERS: ATTEND Anesthesiology | DX: M54.6 Pain in thoracic spine (principal); M79.10 Myalgia, unspecified site; M79.18 Myalgia, other site; M47.812 Spondylosis without myelopathy or radiculopathy, cervical region; E11.9 Type 2 diabetes mellitus without complications; G43.909 Migraine, unspecified, not intractable, without status migrainosus; I48.0 Paroxysmal atrial fibrillation; I10 Essential (primary) hypertension; K21.9 Gastro-esophageal reflux disease without esophagitis; E78.00 Pure hypercholesterolemia, unspecified; N40.0 Benign prostatic hyperplasia without lower urinary tract symptoms; N52.9 Male erectile dysfunction, unspecified; I21.9 Acute myocardial infarction, unspecified; K50.90 Crohn's disease, unspecified, without complications; Z79.891 Long term (current) use of opiate analgesic; Z79.82 Long term (current) use of aspirin; Z79.84 Long term (current) use of oral hypoglycemic drugs; Z79.899 Other long term (current) drug therapy; Z79.52 Long term (current) use of systemic steroids; Z91.048 Other nonmedicinal substance allergy status; Z86.73 Personal history of transient ischemic attack (TIA), and cerebral infarction without residual deficits ==

== ENCOUNTER 2022-06-21 16:57 | Emergency (ER) | payer BC ==
[2022-06-21] MEDS ORDERED: ONDANSETRON 4MG 2ML VIAL IV ONE (17:15)
[2022-06-21] MEDS ORDERED: NS 500 ML IV ONE (17:15)
[2022-06-21] MEDS ORDERED: ACETAMINOPHEN 325 MG TAB PO ONE (17:20)
[2022-06-21] MEDS: fentaNYL 100 MCG/2 ML INJECTION IV PRN ×3 (17:26→20:52)
[2022-06-21] MEDS ORDERED: ISOVUE-370 76% 100ML VIAL As Ordered ONE (17:39)
[2022-06-21 17:40] LABS: BASO % 0.2 % (0.0-1.0); EOS # 0.1 10^3/uL (0.0-0.5); EOS % 1.8 % (0.0-3.0); HEMATOCRIT 35.8 % (42.0-52.0); HEMOGLOBIN 11.9 g/dl (13.5-17.5); LYMPH # 0.8 10^3/uL (1.5-5.0); LYMPH % 18.7 % (24.0-44.0); MEAN CORPUSCULAR HEMOGLOBIN 31.2 pg (27.0-33.0); MEAN CORPUSCULAR HGB CONC 33.2 g/dl (32.0-36.5); MONO # 0.4 10^3/uL (0.0-0.8); NEUTROPHILS # 3.1 10^3/uL (1.5-8.5); NEUTROPHILS % 71.1 % (36.0-66.0); PLATELET COUNT, AUTOMATED 130 10^3/uL (150-450); RED BLOOD COUNT 3.81 10^6/uL (4.30-6.10); WHITE BLOOD COUNT 4.4 10^3/uL (4.0-10.0)
[2022-06-21 18:11] LABS: BLOOD UREA NITROGEN 19 MG/DL (7-18); CALCIUM LEVEL 8.6 MG/DL (8.5-10.1); CARBON DIOXIDE LEVEL 26 MEQ/L (21-32); CHLORIDE LEVEL 110 MEQ/L (98-107); CREATININE FOR GFR 0.74 MG/DL (0.70-1.30); GLOMERULAR FILTRATION RATE > 60.0 (>56); GLUCOSE, FASTING 99 MG/DL (70-100); POTASSIUM SERUM 4.2 MEQ/L (3.5-5.1); SODIUM LEVEL 143 MEQ/L (136-145)
[2022-06-21 18:20] LABS: INR 1.01; PROTHROMBIN TIME 13.7 SECONDS (12.7-14.5)
[2022-06-21 18:21] LABS: PARTIAL THROMBOPLASTIN TIME 36.8 SECONDS (25.9-37.0)
[2022-06-21 18:45] LABS: CK-MB VALUE MASS 1.8 NG/ML (<3.6); MB/CK RELATIVE INDEX 5.29 (< OR =4)
[2022-06-21 18:55] LABS: ALBUMIN 2.8 GM/DL (3.2-5.2); BILIRUBIN,DIRECT 0.2 MG/DL (0.0-0.2); BILIRUBIN,TOTAL 0.4 MG/DL (0.2-1.0); FREE T4 0.94 NG/DL (0.76-1.46); THYROID STIMULATING HORMONE 1.15 uIU/ML (0.358-3.740); TOTAL PROTEIN 4.8 GM/DL (6.4-8.2)
[2022-06-21 20:31] LABS: CK-MB VALUE MASS 1.4 NG/ML (<3.6); MB/CK RELATIVE INDEX 1.97 (< OR =4)
[2022-06-21 20:41] LABS: RSV AMPLIFICATION NEGATIVE (NEGATIVE)
[2022-06-21] MEDS ORDERED: KETOROLAC 30 MG/ML 1ML VIAL IV ONE (21:50)
[2022-06-21] MEDS ORDERED: diphenhydrAMINE 50MG/ML VIAL (J1200) IV ONE (21:50)
[2022-06-21] MEDS ORDERED: METOCLOPRAMIDE INJ 10MG/2ML VIAL (J2765 PER 1) IV ONE (21:50)
[2022-06-22 01:00] VITALS: BP 160/88
== END 2022-06-22 04:15 | disposition home or self-care (01) ==
LOC: EDBD 16:57 → M ED 16:57
DX: R07.9 Chest pain, unspecified (principal); G43.909 Migraine, unspecified, not intractable, without status migrainosus; I10 Essential (primary) hypertension; E11.9 Type 2 diabetes mellitus without complications; E78.5 Hyperlipidemia, unspecified; F32.9 Major depressive disorder, single episode, unspecified; I25.2 Old myocardial infarction; G61.0 Guillain-Barre syndrome; Z95.1 Presence of aortocoronary bypass graft; Z95.5 Presence of coronary angioplasty implant and graft; Z98.84 Bariatric surgery status; Z87.19 Personal history of other diseases of the digestive system; Z87.442 Personal history of urinary calculi; Z88.7 Allergy status to serum and vaccine; Z79.899 Other long term (current) drug therapy; Z79.82 Long term (current) use of aspirin; Z79.84 Long term (current) use of oral hypoglycemic drugs
CPT/HCPCS: 71045; 71275; 74177; 80047; 80048; 80076; 82550; 82553; 83690; 83735; 83880; 84439; 84443; 84484; 85025; 85610; 85730; 87631; 93005; 93041; 94760; 96361; 96374; 96375; 96376; 99285; J1200; J1885; J2405; J2765; J3010; Q9967

== ENCOUNTER 2022-07-03 11:30 | Emergency (ER) | payer BC ==
[~2022-07-03] VITALS: Ht 167.6 cm; Wt 81.8 kg
[2022-07-03 12:08] LABS: BASO % 0.5 % (0.0-1.0); EOS # 0.1 10^3/uL (0.0-0.5); EOS % 1.3 % (0.0-3.0); HEMATOCRIT 37.1 % (42.0-52.0); HEMOGLOBIN 12.3 g/dl (13.5-17.5); LYMPH # 0.9 10^3/uL (1.5-5.0); LYMPH % 23.1 % (24.0-44.0); MEAN CORPUSCULAR HEMOGLOBIN 31.1 pg (27.0-33.0); MEAN CORPUSCULAR HGB CONC 33.2 g/dl (32.0-36.5); MEAN CORPUSCULAR VOLUME 93.9 fl (80.0-96.0); MONO # 0.3 10^3/uL (0.0-0.8); MONO % 7.7 % (2.0-8.0); NEUTROPHILS # 2.6 10^3/uL (1.5-8.5); NEUTROPHILS % 67.1 % (36.0-66.0); PLATELET COUNT, AUTOMATED 161 10^3/uL (150-450); RED BLOOD COUNT 3.95 10^6/uL (4.30-6.10); WHITE BLOOD COUNT 3.9 10^3/uL (4.0-10.0)
[2022-07-03 12:34] LABS: BLOOD UREA NITROGEN 17 MG/DL (7-18); CALCIUM LEVEL 9.1 MG/DL (8.5-10.1); CARBON DIOXIDE LEVEL 24 MEQ/L (21-32); CHLORIDE LEVEL 107 MEQ/L (98-107); CREATININE FOR GFR 0.69 MG/DL (0.70-1.30); GLOMERULAR FILTRATION RATE > 60.0 (>56); GLUCOSE, FASTING 108 MG/DL (70-100); POTASSIUM SERUM 3.8 MEQ/L (3.5-5.1); SODIUM LEVEL 142 MEQ/L (136-145)
[2022-07-03 12:37] LABS: CK-MB VALUE MASS 2.1 NG/ML (<3.6); MB/CK RELATIVE INDEX 4.67 (< OR =4)
[2022-07-03 14:07] LABS: CK-MB VALUE MASS 1.8 NG/ML (<3.6); MB/CK RELATIVE INDEX 5.62 (< OR =4)
[2022-07-03 15:04] LABS: C REACTIVE PROTEIN QUANTITATIV < 0.30 MG/DL (0.00-0.30)
[2022-07-03 15:21] LABS: ERYTHROCYTE SEDIMENTATION RATE 4 mm/hr (0-20)
[2022-07-03] MEDS ORDERED: HEPARIN SOD (PORCINE) 5000UNITS/ML 1ML VIAL/SYRINGE IV ONE (15:50)
[2022-07-03] MEDS ORDERED: HEPARIN DRIP 25,000 UNITS in IV 1 EA IV SCH (15:50)
[2022-07-03] MEDS ORDERED: ACETAMINOPHEN TAB 650MG DOSE (2X325MG) PO ONE (16:15)
[2022-07-03] MEDS ORDERED: MORPHINE 2 MG/ML 1ML VIAL IV PRN ×2 (16:35)
[2022-07-03 16:43] LABS: INR 1.05; PROTHROMBIN TIME 14.1 SECONDS (12.7-14.5)
[2022-07-03 16:44] LABS: PARTIAL THROMBOPLASTIN TIME 35.8 SECONDS (25.9-37.0)
[2022-07-03 16:46] LABS: RSV AMPLIFICATION NEGATIVE (NEGATIVE)
[2022-07-03] MEDS ORDERED: GLUCAGON INJ 1MG VIAL SC PRN (16:55)
[2022-07-03] MEDS ORDERED: DEXTROSE 50% 50 ML SYRINGE IV PRN (16:55)
[2022-07-03] MEDS ORDERED: GLUCOSE 4GM CHEW TABLET PO PRN (16:55)
[2022-07-03] MEDS ORDERED: NITROGLYCERIN 0.4 MG SUBL TABLET SL PRN (17:00)
[2022-07-03] MEDS ORDERED: INSULIN LISPRO (NovoLOG) PER UNIT SC SCH (18:00)
[2022-07-03] MEDS ORDERED: PANTOPRAZOLE 40MG VIAL IV SCH (18:00)
[2022-07-03] MEDS ORDERED: METOCLOPRAMIDE INJ 10MG/2ML VIAL (J2765 PER 1) IV ONE (18:25)
[2022-07-03] MEDS ORDERED: HYDROMORPHONE HCL 0.5 MG/ 0.5 ML SYRINGE (J1170 PER 1) IV ONE (18:25)
[2022-07-03] MEDS ORDERED: MORPHINE 4 MG/ML 1ML VIAL/SYRINGE IV ONE ×2 (19:25)
[2022-07-03 19:30] VITALS: BP 158/80
[2022-07-04] MEDS ORDERED: ASPIRIN 81MG ENTERIC TABLET PO SCH (09:00)
== END 2022-07-03 19:34 | disposition short-term general hospital (02) ==
LOC: M ED 11:30
DX: I20.0 Unstable angina (principal); I10 Essential (primary) hypertension; E11.9 Type 2 diabetes mellitus without complications; E55.9 Vitamin D deficiency, unspecified; E78.5 Hyperlipidemia, unspecified; I25.2 Old myocardial infarction; K21.9 Gastro-esophageal reflux disease without esophagitis; N40.0 Benign prostatic hyperplasia without lower urinary tract symptoms; Z88.7 Allergy status to serum and vaccine; Z95.5 Presence of coronary angioplasty implant and graft; Z98.84 Bariatric surgery status; Z79.899 Other long term (current) drug therapy; Z79.82 Long term (current) use of aspirin; Z79.84 Long term (current) use of oral hypoglycemic drugs
CPT/HCPCS: 71045; 80048; 82550; 82553; 84484; 85025; 85610; 85652; 85730; 86140; 87631; 93005; 93041; 94760; 96374; 96375; 96376; 99285; C9113; J1170; J1644; J2270; J2765

== ENCOUNTER → 2022-09-04 | Outpatient (CLI) | payer BC ==
[~2022-09-04] MED LIST changes: -MAXA10TA14 PO; +RIZA10TA64 PO
== END ==
LOC: M PAIN 09:15
PROVIDERS: ATTEND Anesthesiology
DX: M79.18 Myalgia, other site (principal); M54.6 Pain in thoracic spine; M79.10 Myalgia, unspecified site; M47.812 Spondylosis without myelopathy or radiculopathy, cervical region; E11.9 Type 2 diabetes mellitus without complications; G43.909 Migraine, unspecified, not intractable, without status migrainosus; I48.0 Paroxysmal atrial fibrillation; I10 Essential (primary) hypertension; K21.9 Gastro-esophageal reflux disease without esophagitis; E78.00 Pure hypercholesterolemia, unspecified; N40.0 Benign prostatic hyperplasia without lower urinary tract symptoms; N52.9 Male erectile dysfunction, unspecified; I21.9 Acute myocardial infarction, unspecified; K50.90 Crohn's disease, unspecified, without complications; Z79.891 Long term (current) use of opiate analgesic; Z79.82 Long term (current) use of aspirin; Z79.84 Long term (current) use of oral hypoglycemic drugs; Z79.899 Other long term (current) drug therapy; Z79.52 Long term (current) use of systemic steroids; Z91.048 Other nonmedicinal substance allergy status; Z86.73 Personal history of transient ischemic attack (TIA), and cerebral infarction without residual deficits

== ENCOUNTER 2022-10-18 19:37 | Emergency (ER) | payer BC ==
[~2022-10-18] VITALS: Ht 177.8 cm; Wt 76.6 kg
[2022-10-18] MEDS ORDERED: ISOVUE-370 76% 100ML VIAL As Ordered ONE (20:01)
[2022-10-18 20:18] LABS: BASO % 0.5 % (0.0-1.0); EOS # 0.2 10^3/uL (0.0-0.5); EOS % 3.9 % (0.0-3.0); HEMATOCRIT 37.4 % (42.0-52.0); HEMOGLOBIN 12.5 g/dl (13.5-17.5); LYMPH # 0.8 10^3/uL (1.5-5.0); MEAN CORPUSCULAR HEMOGLOBIN 31.3 pg (27.0-33.0); MEAN CORPUSCULAR HGB CONC 33.4 g/dl (32.0-36.5); MEAN CORPUSCULAR VOLUME 93.7 fl (80.0-96.0); MONO # 0.4 10^3/uL (0.0-0.8); MONO % 8.6 % (2.0-8.0); NEUTROPHILS # 2.7 10^3/uL (1.5-8.5); NEUTROPHILS % 66.8 % (36.0-66.0); PLATELET COUNT, AUTOMATED 183 10^3/uL (150-450); RED BLOOD COUNT 3.99 10^6/uL (4.30-6.10); WHITE BLOOD COUNT 4.1 10^3/uL (4.0-10.0)
[2022-10-18] MEDS ORDERED: ONDANSETRON 4MG 2ML VIAL IV ONE (20:25)
[2022-10-18] MEDS ORDERED: MORPHINE 4 MG/ML 1ML VIAL IV ONE (20:25)
[2022-10-18 20:40] LABS: CK-MB VALUE MASS < 1.0 NG/ML (<3.6)
[2022-10-18 20:51] LABS: PARTIAL THROMBOPLASTIN TIME 34.7 SECONDS (24.8-34.2)
[2022-10-18 20:56] LABS: CPK CREATINE PHOSPHOKINASE 42 U/L (46-171); MB/CK RELATIVE INDEX 2.38 (< OR =4)
[2022-10-18] MEDS ORDERED: TENECTEPLASE 50 MG KIT (TNKase) (J3101 PER 1MG) IVP ONE (21:10)
[2022-10-18 21:25] VITALS: BP 148/75
[2022-10-18 21:42] LABS: D-DIMER QUANT < 270 ng/ml (<500)
[2022-10-18 21:45] VITALS: BP 137/83
[2022-10-18 21:55] LABS: RSV AMPLIFICATION NEGATIVE (NEGATIVE)
[2022-10-18] MEDS ORDERED: SODIUM CHLORIDE 0.9% INJ 10 ML SYR IV ONE ×2 (22:00)
[2022-10-18 22:29] LABS: CK-MB VALUE MASS < 1.0 NG/ML (<3.6)
[2022-10-18 22:30] LABS: CPK CREATINE PHOSPHOKINASE 33 U/L (46-171); MB/CK RELATIVE INDEX 3.03 (< OR =4)
== END 2022-10-18 22:02 | disposition short-term general hospital (02) ==
LOC: EDBD 19:37 → M ED 19:37
DX: I63.9 Cerebral infarction, unspecified (principal); R07.9 Chest pain, unspecified; I25.2 Old myocardial infarction; E11.9 Type 2 diabetes mellitus without complications; I10 Essential (primary) hypertension; K21.9 Gastro-esophageal reflux disease without esophagitis; E78.5 Hyperlipidemia, unspecified; Z86.69 Personal history of other diseases of the nervous system and sense organs; Z98.84 Bariatric surgery status; Z79.82 Long term (current) use of aspirin; Z79.84 Long term (current) use of oral hypoglycemic drugs; Z79.4 Long term (current) use of insulin; Z79.899 Other long term (current) drug therapy
CPT/HCPCS: 70450; 70496; 70498; 71045; 80047; 82550; 82553; 84484; 85025; 85379; 85730; 87631; 93005; 93041; 94760; 96374; 96375; 99285; J2270; J2405; J3101

== ENCOUNTER → 2022-11-20 | Outpatient (CLI) | payer BC | LOC: M PAIN 08:45 | PROVIDERS: ATTEND Anesthesiology | DX: M79.18 Myalgia, other site (principal); Z79.891 Long term (current) use of opiate analgesic; M54.2 Cervicalgia; M54.6 Pain in thoracic spine; E11.9 Type 2 diabetes mellitus without complications; G43.909 Migraine, unspecified, not intractable, without status migrainosus; I48.0 Paroxysmal atrial fibrillation; I10 Essential (primary) hypertension; K21.9 Gastro-esophageal reflux disease without esophagitis; E78.00 Pure hypercholesterolemia, unspecified; N40.0 Benign prostatic hyperplasia without lower urinary tract symptoms; N52.9 Male erectile dysfunction, unspecified; K50.90 Crohn's disease, unspecified, without complications; I25.2 Old myocardial infarction; Z86.73 Personal history of transient ischemic attack (TIA), and cerebral infarction without residual deficits; Z79.02 Long term (current) use of antithrombotics/antiplatelets; Z79.84 Long term (current) use of oral hypoglycemic drugs; Z79.899 Other long term (current) drug therapy; Z91.048 Other nonmedicinal substance allergy status ==

== ENCOUNTER → 2022-12-12 | Outpatient (CLI) | payer BC | LOC: M LABSMTC 12:03 | PROVIDERS: ATTEND Anesthesiology | DX: Z01.818 Encounter for other preprocedural examination (principal) ==

== ENCOUNTER → 2022-12-17 | Outpatient (CLI) | payer BC ==
[~2022-12-17] MED LIST changes: +BUPIVACAINE HCL 0.25% 10ML VIAL As Ordered ONE; +BUPIVACAINE HCL 0.25% 30ML VIAL As Ordered ONE; +TRIAMCINOLONE ACETONIDE SUSP 40MG/ML 1ML VIAL As Ordered ONE
== END ==
LOC: M PAIN 13:45
PROVIDERS: ATTEND Anesthesiology
DX: M79.18 Myalgia, other site (principal); G89.29 Other chronic pain; E11.9 Type 2 diabetes mellitus without complications; G43.909 Migraine, unspecified, not intractable, without status migrainosus; I10 Essential (primary) hypertension; K21.9 Gastro-esophageal reflux disease without esophagitis; I25.2 Old myocardial infarction; Z98.84 Bariatric surgery status; Z95.5 Presence of coronary angioplasty implant and graft; Z91.09 Other allergy status, other than to drugs and biological substances; Z79.01 Long term (current) use of anticoagulants; Z79.82 Long term (current) use of aspirin; Z79.84 Long term (current) use of oral hypoglycemic drugs; Z79.85 Long-term (current) use of injectable non-insulin antidiabetic drugs; Z79.899 Other long term (current) drug therapy
CPT/HCPCS: 20553; J3301; S0020

== ENCOUNTER → 2022-12-31 | Outpatient (CLI) | payer BC ==
[~2022-12-31] MED LIST changes: +AIMO70IN2 SC; +ATOR80TA59 PO; +AZAT50TA37 PO; -BUPIVACAINE HCL 0.25% 10ML VIAL As Ordered ONE; -BUPIVACAINE HCL 0.25% 30ML VIAL As Ordered ONE; +BUTA1CAP PO; +CLOP75TA2 PO; +DIVA500T94 PO; +DULO30CA47 PO; +MONT-5 PO; +NITR0.4S14 PO; +OMEP-173 PO; -SING10TA32 PO; +STEL90IN SC; -TRIAMCINOLONE ACETONIDE SUSP 40MG/ML 1ML VIAL As Ordered ONE; +VITA500030 PO
== END ==
LOC: M PAIN 14:00
PROVIDERS: ATTEND Anesthesiology
DX: M79.18 Myalgia, other site (principal); M54.6 Pain in thoracic spine; G89.29 Other chronic pain; G43.909 Migraine, unspecified, not intractable, without status migrainosus; I10 Essential (primary) hypertension; I25.2 Old myocardial infarction; Z98.84 Bariatric surgery status; Z95.5 Presence of coronary angioplasty implant and graft; Z91.09 Other allergy status, other than to drugs and biological substances

== ENCOUNTER 2023-01-08 11:55 | Emergency (ER) | payer BC ==
[~2023-01-08] VITALS: Ht 177.8 cm; Wt 72.7 kg
[~2023-01-08 11:55] MED LIST changes: -AIMO70IN2 SC; -ATOR80TA59 PO; -AZAT50TA37 PO; -BUTA1CAP PO; -CLOP75TA2 PO; -DIVA500T94 PO; -DULO30CA47 PO; -NITR0.4S14 PO; -OMEP-173 PO; -STEL90IN SC; -VITA500030 PO
[2023-01-08 12:40] LABS: BASO % 0.4 % (0.0-1.0); EOS # 0.1 10^3/uL (0.0-0.5); EOS % 1.4 % (0.0-3.0); HEMATOCRIT 43.5 % (42.0-52.0); HEMOGLOBIN 14.6 g/dl (13.5-17.5); LYMPH # 0.9 10^3/uL (1.5-5.0); LYMPH % 16.5 % (24.0-44.0); MEAN CORPUSCULAR HEMOGLOBIN 31.4 pg (27.0-33.0); MEAN CORPUSCULAR HGB CONC 33.6 g/dl (32.0-36.5); MEAN CORPUSCULAR VOLUME 93.5 fl (80.0-96.0); MONO # 0.4 10^3/uL (0.0-0.8); NEUTROPHILS # 3.8 10^3/uL (1.5-8.5); NEUTROPHILS % 74.3 % (36.0-66.0); PLATELET COUNT, AUTOMATED 158 10^3/uL (150-450); RED BLOOD COUNT 4.65 10^6/uL (4.30-6.10); WHITE BLOOD COUNT 5.1 10^3/uL (4.0-10.0)
[2023-01-08] MEDS ORDERED: ONDANSETRON 4MG 2ML VIAL IV ONE (12:40)
[2023-01-08 12:53] LABS: INR 0.93; PROTHROMBIN TIME 12.7 SECONDS (12.5-14.5)
[2023-01-08 12:54] LABS: PARTIAL THROMBOPLASTIN TIME 32.7 SECONDS (24.8-34.2)
[2023-01-08] MEDS: MORPHINE 2 MG/ML 1ML VIAL IV PRN ×2 (12:57→20:33)
[2023-01-08 13:36] LABS: LIPASE 36 U/L (12-53)
[2023-01-08 14:14] LABS: ALBUMIN 3.7 G/DL (3.2-5.2); ALKALINE PHOSPHATASE 74 U/L (46-116); ALT/SGPT 24 U/L (7.0-40); AST/SGOT 31 U/L (<34); BILIRUBIN,DIRECT 0.2 MG/DL (<0.4); BILIRUBIN,TOTAL 0.6 MG/DL (0.3-1.2); BLOOD UREA NITROGEN 22 MG/DL (9-23); CALCIUM LEVEL 9.3 MG/DL (8.5-10.1); CARBON DIOXIDE LEVEL 26 MMOL/L (20-31); CHLORIDE LEVEL 105 MMOL/L (98-107); CK-MB VALUE MASS < 1.0 NG/ML (<3.6); CPK CREATINE PHOSPHOKINASE 43 U/L (46-171); FREE T4 1.15 NG/DL (0.89-1.76); GLOMERULAR FILTRATION RATE > 60.0 (>56); GLUCOSE, FASTING 127 MG/DL (60-100); MB/CK RELATIVE INDEX 2.32 (< OR =4); SODIUM LEVEL 142 MMOL/L (136-145); THYROID STIMULATING HORMONE 1.064 uIU/ML (0.55-4.78)
[2023-01-08 14:31] LABS: CK-MB VALUE MASS < 1.0 NG/ML (<3.6)
[2023-01-08 14:32] LABS: CPK CREATINE PHOSPHOKINASE 24 U/L (46-171); MB/CK RELATIVE INDEX 4.16 (< OR =4)
[2023-01-08 14:44] LABS: RSV AMPLIFICATION NEGATIVE (NEGATIVE)
[2023-01-08] MEDS ORDERED: HEPARIN SOD (PORCINE) 5000UNITS/ML 1ML VIAL/SYRINGE IV ONE (14:50)
[2023-01-08] MEDS ORDERED: HEPARIN DRIP 25,000 UNITS in IV 1 EA IV SCH ×2 (14:50→15:25)
[2023-01-08] MEDS ORDERED: HEPARIN SOD (PORCINE) 5000UNITS/ML 1ML VIAL/SYRINGE IV PRN (15:25)
[2023-01-08] MEDS ORDERED: NORCO, ANEXSIA 5/325MG TABLET (HYDROcodone/ACETAMINOPHEN) PO ONE (18:00)
[2023-01-08] MEDS ORDERED: METOCLOPRAMIDE INJ 10MG/2ML VIAL IV ONE (18:00)
[2023-01-08] MEDS ORDERED: DIVA500T94 PO (19:56)
[2023-01-08] MEDS ORDERED: BUTA1CAP PO (19:56)
[2023-01-08] MEDS ORDERED: VITA500030 PO (19:56)
[2023-01-08] MEDS ORDERED: NITR0.4S14 PO (19:56)
[2023-01-08] MEDS ORDERED: GABA-1171 PO (19:56)
[2023-01-08] MEDS ORDERED: CLOP75TA2 PO (19:56)
[2023-01-08] MEDS ORDERED: OMEP-173 PO (19:56)
[2023-01-08] MEDS ORDERED: AZAT50TA37 PO (19:56)
[2023-01-08] MEDS ORDERED: AIMO70IN2 SC (19:56)
[2023-01-08] MEDS ORDERED: ATOR80TA59 PO (19:56)
[2023-01-08] MEDS ORDERED: STEL90IN SC (19:56)
[2023-01-08] MEDS ORDERED: METF10004 PO (19:56)
[2023-01-08] MEDS ORDERED: DULO30CA47 PO (19:56)
[2023-01-08] MEDS ORDERED: HOME MED LIST COMPLETE! XX SCH (20:00)
[2023-01-08] MEDS ORDERED: MAGNESIUM OXIDE 400MG TAB (MAG-OX) PO ONE (20:10)
[2023-01-08] MEDS ORDERED: bisoproloL fumarate 10 MG TAB PO ONE (20:10)
[2023-01-08] MEDS ORDERED: GABAPENTIN 100 MG CAP PO ONE (20:10)
[2023-01-08] MEDS ORDERED: DIVALPROEX 500 MG TAB PO ONE (20:10)
[2023-01-08] MEDS ORDERED: ATORVASTATIN 20 MG TAB PO ONE (20:10)
[2023-01-08] MEDS ORDERED: DULoxetine 30MG CAPSULE (CYMBALTA) PO ONE (20:10)
[2023-01-08 21:39] LABS: INR 1.02; PROTHROMBIN TIME 13.6 SECONDS (12.5-14.5)
[2023-01-08 21:41] LABS: PARTIAL THROMBOPLASTIN TIME 81.8 SECONDS (24.8-34.2)
[2023-01-08 22:39] VITALS: BP 187/96
[2023-01-08 22:42] LABS: CK-MB VALUE MASS < 1.0 NG/ML (<3.6)
[2023-01-08 22:45] LABS: CPK CREATINE PHOSPHOKINASE 30 U/L (46-171); MB/CK RELATIVE INDEX 3.33 (< OR =4)
[2023-01-09 04:00] VITALS: BP 158/89
[2023-01-09 04:05] LABS: INR 0.99; PROTHROMBIN TIME 13.3 SECONDS (12.5-14.5)
[2023-01-09 04:21] LABS: CPK CREATINE PHOSPHOKINASE 16 U/L (46-171)
[2023-01-09 04:48] LABS: CK-MB VALUE MASS < 1.0 NG/ML (<3.6); MB/CK RELATIVE INDEX 6.25 (< OR =4)
== END 2023-01-09 08:04 | disposition short-term general hospital (02) ==
LOC: M ED 11:55
DX: I20.0 Unstable angina (principal); E11.9 Type 2 diabetes mellitus without complications; I10 Essential (primary) hypertension; I25.2 Old myocardial infarction; E78.5 Hyperlipidemia, unspecified; Z98.84 Bariatric surgery status; Z79.82 Long term (current) use of aspirin; Z79.899 Other long term (current) drug therapy; Z88.7 Allergy status to serum and vaccine
CPT/HCPCS: 71045; 80048; 80076; 82550; 82553; 83690; 84439; 84443; 84484; 85025; 85610; 85730; 87631; 93005; 93041; 94760; 96365; 96366; 96375; 96376; 99285; J1644; J2270; J2405; J2765

== ENCOUNTER → 2023-01-08 | Outpatient (CLI) | payer BC ==
[2023-01-08 12:07] LABS: BASO % 0.4 % (0.0-1.0); EOS # 0.1 10^3/uL (0.0-0.5); EOS % 1.9 % (0.0-3.0); HEMATOCRIT 42.6 % (42.0-52.0); HEMOGLOBIN 14.3 g/dl (13.5-17.5); LYMPH # 0.8 10^3/uL (1.5-5.0); LYMPH % 16.4 % (24.0-44.0); MEAN CORPUSCULAR HEMOGLOBIN 31.2 pg (27.0-33.0); MEAN CORPUSCULAR HGB CONC 33.6 g/dl (32.0-36.5); MONO # 0.4 10^3/uL (0.0-0.8); MONO % 7.6 % (2.0-8.0); NEUTROPHILS # 3.8 10^3/uL (1.5-8.5); NEUTROPHILS % 73.5 % (36.0-66.0); PLATELET COUNT, AUTOMATED 166 10^3/uL (150-450); RED BLOOD COUNT 4.58 10^6/uL (4.30-6.10); WHITE BLOOD COUNT 5.1 10^3/uL (4.0-10.0)
[2023-01-08 13:48] LABS: BLOOD UREA NITROGEN 22 MG/DL (9-23); CALCIUM LEVEL 9.5 MG/DL (8.5-10.1); CARBON DIOXIDE LEVEL 29 MMOL/L (20-31); CHLORIDE LEVEL 105 MMOL/L (98-107); CREATININE FOR GFR 0.79 MG/DL (0.70-1.30); GLOMERULAR FILTRATION RATE > 60.0 (>56); GLUCOSE, FASTING 143 MG/DL (60-100); POTASSIUM SERUM 3.8 MMOL/L (3.5-5.1); SODIUM LEVEL 143 MMOL/L (136-145)
== END ==
LOC: M LAB 11:33
PROVIDERS: ATTEND Nurse Practitioner Family
DX: I25.110 Atherosclerotic heart disease of native coronary artery with unstable angina pectoris (principal)

== ENCOUNTER → 2023-02-03 | Outpatient (CLI) | payer BC ==
[~2023-02-03] MED LIST changes: +AIMO70IN2 SC; +ATOR80TA59 PO; +AZAT50TA37 PO; +BUTA1CAP PO; +CLOP75TA2 PO; +DIVA500T94 PO; +DULO30CA47 PO; +NITR0.4S14 PO; +OMEP-173 PO; +STEL90IN SC; +VITA500030 PO
== END ==
LOC: M LABSMTC 10:56
PROVIDERS: ATTEND Anesthesiology
DX: Z01.812 Encounter for preprocedural laboratory examination (principal)

== ENCOUNTER → 2023-02-04 | Outpatient (CLI) | payer BC ==
[~2023-02-04] MED LIST changes: +BUPIVACAINE HCL 0.25% 10ML VIAL As Ordered ONE; +BUPIVACAINE HCL 0.25% 30ML VIAL As Ordered ONE; +TRIAMCINOLONE ACETONIDE SUSP 40MG/ML 1ML VIAL As Ordered ONE
== END ==
LOC: M PAIN 10:15
PROVIDERS: ATTEND Anesthesiology
DX: M79.18 Myalgia, other site (principal); E11.9 Type 2 diabetes mellitus without complications; G43.909 Migraine, unspecified, not intractable, without status migrainosus; I48.0 Paroxysmal atrial fibrillation; I10 Essential (primary) hypertension; K21.9 Gastro-esophageal reflux disease without esophagitis; E78.00 Pure hypercholesterolemia, unspecified; N40.0 Benign prostatic hyperplasia without lower urinary tract symptoms; N52.9 Male erectile dysfunction, unspecified; K50.90 Crohn's disease, unspecified, without complications; I25.2 Old myocardial infarction; Z86.73 Personal history of transient ischemic attack (TIA), and cerebral infarction without residual deficits; Z79.85 Long-term (current) use of injectable non-insulin antidiabetic drugs; Z79.891 Long term (current) use of opiate analgesic; Z79.899 Other long term (current) drug therapy; Z91.048 Other nonmedicinal substance allergy status
CPT/HCPCS: 20552; J3301; S0020

== ENCOUNTER → 2023-02-12 | Outpatient (CLI) | payer BC ==
[~2023-02-12] MED LIST changes: -BUPIVACAINE HCL 0.25% 10ML VIAL As Ordered ONE; -BUPIVACAINE HCL 0.25% 30ML VIAL As Ordered ONE; -TRIAMCINOLONE ACETONIDE SUSP 40MG/ML 1ML VIAL As Ordered ONE
[2023-02-12 07:32] LABS: HEMATOCRIT 40.8 % (42.0-52.0); HEMOGLOBIN 13.8 g/dl (13.5-17.5); MEAN CORPUSCULAR HEMOGLOBIN 31.4 pg (27.0-33.0); MEAN CORPUSCULAR HGB CONC 33.8 g/dl (32.0-36.5); MEAN CORPUSCULAR VOLUME 92.7 fl (80.0-96.0); PLATELET COUNT, AUTOMATED 166 10^3/uL (150-450); WHITE BLOOD COUNT 4.6 10^3/uL (4.0-10.0)
[2023-02-12 07:58] LABS: C REACTIVE PROTEIN QUANTITATIV < 0.40 MG/DL (<1.0)
[2023-02-12 07:59] LABS: ALBUMIN 3.5 G/DL (3.2-5.2); ALKALINE PHOSPHATASE 62 U/L (46-116); ALT/SGPT 15 U/L (7.0-40); AST/SGOT 19 U/L (<34); BILIRUBIN,TOTAL 0.7 MG/DL (0.3-1.2); BLOOD UREA NITROGEN 17 MG/DL (9-23); CARBON DIOXIDE LEVEL 32 MMOL/L (20-31); CHLORIDE LEVEL 106 MMOL/L (98-107); GLOMERULAR FILTRATION RATE > 60.0 (>56); GLUCOSE, FASTING 151 MG/DL (60-100); POTASSIUM SERUM 3.8 MMOL/L (3.5-5.1); SODIUM LEVEL 145 MMOL/L (136-145); TOTAL PROTEIN 5.5 G/DL (5.7-8.2)
[2023-02-12 10:11] LABS: ERYTHROCYTE SEDIMENTATION RATE < 1 mm/hr (0-20)
== END ==
LOC: M LAB 06:47
PROVIDERS: ATTEND Internal Medicine Gastroenterology
DX: K50.00 Crohn's disease of small intestine without complications (principal); K44.9 Diaphragmatic hernia without obstruction or gangrene; K21.9 Gastro-esophageal reflux disease without esophagitis; R63.4 Abnormal weight loss; Z80.0 Family history of malignant neoplasm of digestive organs

== ENCOUNTER 2023-03-27 11:40 | Emergency (ER) | payer BC ==
[~2023-03-27] VITALS: Ht 177.8 cm; Wt 72.7 kg
[~2023-03-27 11:40] MED LIST changes: -COZA50TA PO; +LOSA-528 PO
[2023-03-27] MEDS ORDERED: ONDANSETRON 4MG 2ML VIAL IV ONE (11:55)
[2023-03-27] MEDS ORDERED: NITROGLYCERIN 0.4MG SUBL TABLET SL PRN (11:55)
[2023-03-27 12:02] VITALS: BP 173/91
[2023-03-27] MEDS: MORPHINE 2 MG/ML 1ML VIAL IV PRN ×3 (12:02→12:41)
[2023-03-27 12:05] LABS: BASO % 0.4 % (0.0-1.0); EOS # 0.1 10^3/uL (0.0-0.5); EOS % 1.1 % (0.0-3.0); HEMATOCRIT 41.6 % (42.0-52.0); HEMOGLOBIN 14.3 g/dl (13.5-17.5); LYMPH # 0.8 10^3/uL (1.5-5.0); LYMPH % 16.9 % (24.0-44.0); MEAN CORPUSCULAR HEMOGLOBIN 32.3 pg (27.0-33.0); MEAN CORPUSCULAR HGB CONC 34.4 g/dl (32.0-36.5); MEAN CORPUSCULAR VOLUME 93.9 fl (80.0-96.0); MONO # 0.4 10^3/uL (0.0-0.8); MONO % 9.2 % (2.0-8.0); NEUTROPHILS # 3.3 10^3/uL (1.5-8.5); NEUTROPHILS % 72.2 % (36.0-66.0); PLATELET COUNT, AUTOMATED 161 10^3/uL (150-450); RED BLOOD COUNT 4.43 10^6/uL (4.30-6.10); WHITE BLOOD COUNT 4.6 10^3/uL (4.0-10.0)
[2023-03-27 12:16] LABS: INR 0.87
[2023-03-27 12:34] LABS: LIPASE 46 U/L (12-53)
[2023-03-27 12:36] LABS: ALBUMIN 3.7 G/DL (3.2-5.2); ALKALINE PHOSPHATASE 60 U/L (46-116); ALT/SGPT 19 U/L (7.0-40); AST/SGOT 23 U/L (<34); BILIRUBIN,DIRECT 0.2 MG/DL (<0.4); BILIRUBIN,TOTAL 0.6 MG/DL (0.3-1.2); BLOOD UREA NITROGEN 18 MG/DL (9-23); CALCIUM LEVEL 9.1 MG/DL (8.5-10.1); CARBON DIOXIDE LEVEL 30 MMOL/L (20-31); CHLORIDE LEVEL 105 MMOL/L (98-107); CK-MB VALUE MASS < 1.0 NG/ML (<3.6); CREATININE FOR GFR 0.69 MG/DL (0.70-1.30); GLOMERULAR FILTRATION RATE > 60.0 (>56); GLUCOSE, FASTING 134 MG/DL (60-100); POTASSIUM SERUM 3.4 MMOL/L (3.5-5.1); SODIUM LEVEL 144 MMOL/L (136-145); TOTAL PROTEIN 5.7 G/DL (5.7-8.2)
[2023-03-27] MEDS ORDERED: AIMO70IN2 SQ (12:37)
[2023-03-27 12:38] LABS: CPK CREATINE PHOSPHOKINASE 39 U/L (46-171); MB/CK RELATIVE INDEX 2.56 (< OR =4)
[2023-03-27 12:59] LABS: RSV AMPLIFICATION NEGATIVE (NEGATIVE)
[2023-03-27] MEDS ORDERED: ISOVUE-370 76% 100ML VIAL As Ordered ONE (13:07)
[2023-03-27] MEDS ORDERED: NS 500 ML IV ONE (13:40)
[2023-03-27] MEDS ORDERED: POTASSIUM CHLORIDE 10MEQ SR TABLET PO ONE (13:40)
[2023-03-27 13:51] LABS: CK-MB VALUE MASS < 1.0 NG/ML (<3.6)
[2023-03-27 13:52] LABS: CPK CREATINE PHOSPHOKINASE 29 U/L (46-171); MB/CK RELATIVE INDEX 3.44 (< OR =4)
[2023-03-27 15:03] LABS: MAGNESIUM LEVEL 1.8 MG/DL (1.8-2.4)
[2023-03-27] MEDS ORDERED: NITROGLYCERIN/D5W 100MCG/ML 25 MG in IV 1 EA IV SCH (16:00)
[2023-03-27] MEDS ORDERED: HEPARIN SOD (PORCINE) 5000UNITS/ML 1ML VIAL/SYRINGE IV ONE (16:00)
[2023-03-27] MEDS ORDERED: HEPARIN DRIP 25,000 UNITS in IV 1 EA IV SCH ×2 (16:00→18:10)
[2023-03-27] MEDS ORDERED: HEPARIN SOD (PORCINE) 5000UNITS/ML 1ML VIAL/SYRINGE IV PRN (18:10)
[2023-03-28 06:30] VITALS: BP 125/69
== END 2023-03-28 07:11 | disposition short-term general hospital (02) ==
LOC: M ED 11:40
DX: R07.9 Chest pain, unspecified (principal); I24.9 Acute ischemic heart disease, unspecified; Z79.82 Long term (current) use of aspirin; Z95.5 Presence of coronary angioplasty implant and graft; Z88.4 Allergy status to anesthetic agent; Z79.899 Other long term (current) drug therapy
CPT/HCPCS: 71045; 71275; 74177; 80053; 82248; 82550; 82553; 83690; 83735; 84484; 85025; 85610; 85730; 87631; 93005; 93041; 94760; 96365; 96366; 96375; 99285; J2405; Q9967

== ENCOUNTER → 2023-05-14 | Outpatient (CLI) | payer BC ==
[~2023-05-14] MED LIST changes: +AIMO70IN2 SQ; +FINA-48 PO; -PROS5TAB PO
== END ==
LOC: M PAIN 08:15
PROVIDERS: ATTEND Anesthesiology
DX: M47.812 Spondylosis without myelopathy or radiculopathy, cervical region (principal); M47.813 Spondylosis without myelopathy or radiculopathy, cervicothoracic region; E11.9 Type 2 diabetes mellitus without complications; G43.909 Migraine, unspecified, not intractable, without status migrainosus; I10 Essential (primary) hypertension; K21.9 Gastro-esophageal reflux disease without esophagitis; I25.2 Old myocardial infarction; Z91.09 Other allergy status, other than to drugs and biological substances; Z79.01 Long term (current) use of anticoagulants; Z79.82 Long term (current) use of aspirin; Z79.84 Long term (current) use of oral hypoglycemic drugs; Z79.85 Long-term (current) use of injectable non-insulin antidiabetic drugs; Z79.899 Other long term (current) drug therapy

== ENCOUNTER → 2023-07-23 | Outpatient (CLI) | payer BC ==
[~2023-07-23] MED LIST changes: -GABA-283 PO; +GABA-284 PO
== END ==
LOC: M PAIN 10:15
PROVIDERS: ATTEND Anesthesiology
DX: M47.812 Spondylosis without myelopathy or radiculopathy, cervical region (principal); M47.814 Spondylosis without myelopathy or radiculopathy, thoracic region; E11.9 Type 2 diabetes mellitus without complications; G43.909 Migraine, unspecified, not intractable, without status migrainosus; I48.0 Paroxysmal atrial fibrillation; I10 Essential (primary) hypertension; K21.9 Gastro-esophageal reflux disease without esophagitis; E78.00 Pure hypercholesterolemia, unspecified; I48.91 Unspecified atrial fibrillation; N40.0 Benign prostatic hyperplasia without lower urinary tract symptoms; N52.9 Male erectile dysfunction, unspecified; K50.90 Crohn's disease, unspecified, without complications; I25.2 Old myocardial infarction; Z86.73 Personal history of transient ischemic attack (TIA), and cerebral infarction without residual deficits; Z79.891 Long term (current) use of opiate analgesic; Z79.02 Long term (current) use of antithrombotics/antiplatelets; Z79.82 Long term (current) use of aspirin; Z79.899 Other long term (current) drug therapy; Z91.048 Other nonmedicinal substance allergy status

== ENCOUNTER → 2023-08-15 | Outpatient (CLI) | payer BC | LOC: M PAIN 15:15 | PROVIDERS: ATTEND Anesthesiology | DX: M54.6 Pain in thoracic spine (principal); M47.814 Spondylosis without myelopathy or radiculopathy, thoracic region; E11.9 Type 2 diabetes mellitus without complications; G43.909 Migraine, unspecified, not intractable, without status migrainosus; I48.0 Paroxysmal atrial fibrillation; I10 Essential (primary) hypertension; K21.9 Gastro-esophageal reflux disease without esophagitis; E78.00 Pure hypercholesterolemia, unspecified; N40.0 Benign prostatic hyperplasia without lower urinary tract symptoms; N52.9 Male erectile dysfunction, unspecified; K50.90 Crohn's disease, unspecified, without complications; I25.2 Old myocardial infarction; Z86.73 Personal history of transient ischemic attack (TIA), and cerebral infarction without residual deficits; Z79.891 Long term (current) use of opiate analgesic; Z79.82 Long term (current) use of aspirin; Z79.899 Other long term (current) drug therapy; Z91.048 Other nonmedicinal substance allergy status ==

== ENCOUNTER → 2023-09-23 | Outpatient (CLI) | payer BC ==
[~2023-09-23] MED LIST changes: +ISOVUE-M 300 61% 15ML VIAL As Ordered ONE; +LIDOCAINE 1% SDV 30ML VIAL As Ordered ONE
== END ==
LOC: M PAIN 08:30
PROVIDERS: ATTEND Anesthesiology
DX: M47.814 Spondylosis without myelopathy or radiculopathy, thoracic region (principal); E11.9 Type 2 diabetes mellitus without complications; G43.909 Migraine, unspecified, not intractable, without status migrainosus; I48.0 Paroxysmal atrial fibrillation; I10 Essential (primary) hypertension; K21.9 Gastro-esophageal reflux disease without esophagitis; E78.00 Pure hypercholesterolemia, unspecified; N40.0 Benign prostatic hyperplasia without lower urinary tract symptoms; N52.9 Male erectile dysfunction, unspecified; K50.90 Crohn's disease, unspecified, without complications; I25.2 Old myocardial infarction; Z86.73 Personal history of transient ischemic attack (TIA), and cerebral infarction without residual deficits; Z79.891 Long term (current) use of opiate analgesic; Z79.02 Long term (current) use of antithrombotics/antiplatelets; Z79.82 Long term (current) use of aspirin; Z79.84 Long term (current) use of oral hypoglycemic drugs; Z79.899 Other long term (current) drug therapy; Z91.048 Other nonmedicinal substance allergy status
CPT/HCPCS: 64490; 64491; J0665; Q9967

== ENCOUNTER → 2023-09-23 | Outpatient (CLI) | payer BC ==
[~2023-09-23] MED LIST changes: -ISOVUE-M 300 61% 15ML VIAL As Ordered ONE; -LIDOCAINE 1% SDV 30ML VIAL As Ordered ONE
== END ==
LOC: M RAD 10:40
PROVIDERS: ATTEND Anesthesiology
DX: M47.814 Spondylosis without myelopathy or radiculopathy, thoracic region (principal)

== ENCOUNTER → 2023-10-09 | Outpatient (CLI) | payer BC ==
[~2023-10-09] MED LIST changes: +DICY20TA20 PO; +LIDOCAINE 1% SDV 30ML VIAL As Ordered ONE; +ONDA4TAB6 PO; +PRED5TA PO; +dexAMETHasone 10MG/1ML VIAL PRES.FREE As Ordered ONE; +diazePAM 5MG TABLET As Ordered ONE; +oxyCODONE 5MG TAB As Ordered ONE
== END ==
LOC: M PAIN 12:00
PROVIDERS: ATTEND Anesthesiology
DX: M47.814 Spondylosis without myelopathy or radiculopathy, thoracic region (principal); G89.29 Other chronic pain; Z98.84 Bariatric surgery status; Z91.09 Other allergy status, other than to drugs and biological substances; Z79.02 Long term (current) use of antithrombotics/antiplatelets; Z79.82 Long term (current) use of aspirin; Z79.84 Long term (current) use of oral hypoglycemic drugs; Z79.85 Long-term (current) use of injectable non-insulin antidiabetic drugs; Z79.899 Other long term (current) drug therapy
CPT/HCPCS: 64633; 64634; 71046; J0665; J1100

== ENCOUNTER 2023-10-16 11:32 | Inpatient (IN) | payer BC ==
[~2023-10-16] VITALS: Ht 177.8 cm; Wt 71.0 kg
[2023-10-16] VITALS (14 sets, daily range): BP systolic 122–156; BP diastolic 68–84; TEMP 97.8–98.2; O2SAT 94–99
[~2023-10-16 11:32] MED LIST changes: -DICY20TA20 PO; -LIDOCAINE 1% SDV 30ML VIAL As Ordered ONE; -ONDA4TAB6 PO; -PRED5TA PO; -dexAMETHasone 10MG/1ML VIAL PRES.FREE As Ordered ONE; -diazePAM 5MG TABLET As Ordered ONE; -oxyCODONE 5MG TAB As Ordered ONE
[2023-10-16] MEDS ORDERED: ISOVUE-370 76% 100ML VIAL As Ordered ONE (11:56)
[2023-10-16 12:17] LABS: BASO % 0.1 % (0.0-1.0); EOS % 0.3 % (0.0-3.0); HEMATOCRIT 39.7 % (42.0-52.0); HEMOGLOBIN 13.2 g/dl (13.5-17.5); LYMPH # 0.3 10^3/uL (1.5-5.0); MEAN CORPUSCULAR HEMOGLOBIN 32.2 pg (27.0-33.0); MEAN CORPUSCULAR HGB CONC 33.2 g/dl (32.0-36.5); MEAN CORPUSCULAR VOLUME 96.8 fl (80.0-96.0); MONO # 0.3 10^3/uL (0.0-0.8); MONO % 4.7 % (2.0-8.0); NEUTROPHILS % 89.2 % (36.0-66.0); PLATELET COUNT, AUTOMATED 156 10^3/uL (150-450); WHITE BLOOD COUNT 6.8 10^3/uL (4.0-10.0)
[2023-10-16] MEDS ORDERED: LABETALOL 100MG/20ML VIAL IV STA (12:32)
[2023-10-16 12:34] LABS: INR 1.03; PROTHROMBIN TIME 13.2 SECONDS (12.5-14.5)
[2023-10-16 12:42] LABS: BLOOD UREA NITROGEN 13 MG/DL (9-23); CALCIUM LEVEL 8.2 MG/DL (8.5-10.1); CARBON DIOXIDE LEVEL 32 MMOL/L (20-31); CHLORIDE LEVEL 104 MMOL/L (98-107); CK-MB VALUE MASS < 1.0 NG/ML (<3.6); CREATININE FOR GFR 0.61 MG/DL (0.70-1.30); GLOMERULAR FILTRATION RATE > 60.0 (>56); GLUCOSE, FASTING 183 MG/DL (60-100); SODIUM LEVEL 142 MMOL/L (136-145)
[2023-10-16] MEDS ORDERED: TENECTEPLASE 50 MG KIT (TNKase) IVP ONE (12:45)
[2023-10-16 12:53] LABS: CPK CREATINE PHOSPHOKINASE 44 U/L (46-171); MB/CK RELATIVE INDEX 2.27 (< OR =4)
[2023-10-16] MEDS ORDERED: MED REC IN PROGRESS XX SCH (13:05)
[2023-10-16] MEDS ORDERED: niCARdipine 40MG IN 200ML NACL IV BAG As Ordered ONE (13:22)
[2023-10-16] MEDS ORDERED: niCARdipine IV 40 MG in IV 1 EA IV SCH (13:25)
[2023-10-16 13:27] LABS: RSV AMPLIFICATION NEGATIVE (NEGATIVE)
[2023-10-16] MEDS ORDERED: KETOROLAC 30 MG/ML 1ML VIAL IV ONE (13:35)
[2023-10-16 13:57] LABS: PARTIAL THROMBOPLASTIN TIME 32.1 SECONDS (24.8-34.2)
[2023-10-16] MEDS ORDERED: SODIUM CHLORIDE 0.9% INJ 10 ML SYR IV ONE ×2 (14:00)
[2023-10-16] MEDS ORDERED: ACETAMINOPHEN *IV* 1,000 MG in IV 1 EA IV ONE (14:40)
[2023-10-16] MEDS ORDERED: DEXTROSE 50% 50ML SYRINGE IV PRN (16:10)
[2023-10-16] MEDS ORDERED: GLUCAGON INJ 1MG VIAL SC PRN (16:10)
[2023-10-16] MEDS ORDERED: GLUCOSE 4GM CHEW TABLET PO PRN (16:10)
[2023-10-16] MEDS ORDERED: FIORICET TAB PO PRN (16:10)
[2023-10-16] MEDS: PERCOCET 5MG/325MG TAB PO PRN (16:55)
[2023-10-16] MEDS: INSULIN LISPRO (NovoLOG) PER UNIT SC SCH ×2 (17:30→20:01)
[2023-10-16] MEDS ORDERED: ONDA4TAB6 PO (17:54)
[2023-10-16] MEDS ORDERED: DICY20TA20 PO (17:55)
[2023-10-16] MEDS ORDERED: HOME MED LIST COMPLETE! XX SCH (18:15)
[2023-10-16] MEDS: DULoxetine 30MG CAPSULE (CYMBALTA) PO SCH (20:28)
[2023-10-16] MEDS: GABAPENTIN 300 MG CAP PO SCH (20:29)
[2023-10-16] MEDS: OMEPRAZOLE 20MG CAP PO SCH (20:29)
[2023-10-16] MEDS: DIVALPROEX 500 MG TAB PO SCH (20:29)
[2023-10-17] VITALS (15 sets, daily range): BP systolic 146–181; BP diastolic 67–91; TEMP 97.6–98.4; O2SAT 90–98
[2023-10-17] MEDS: PERCOCET 5MG/325MG TAB PO PRN ×3 (00:03→16:27)
[2023-10-17 04:54] LABS: BLOOD UREA NITROGEN 18 MG/DL (9-23); CALCIUM LEVEL 7.6 MG/DL (8.5-10.1); CARBON DIOXIDE LEVEL 30 MMOL/L (20-31); CHLORIDE LEVEL 107 MMOL/L (98-107); CREATININE FOR GFR 0.64 MG/DL (0.70-1.30); GLOMERULAR FILTRATION RATE > 60.0 (>56); GLUCOSE, FASTING 91 MG/DL (60-100); POTASSIUM SERUM 3.4 MMOL/L (3.5-5.1); SODIUM LEVEL 142 MMOL/L (136-145)
[2023-10-17] MEDS: INSULIN LISPRO (NovoLOG) PER UNIT SC SCH ×4 (07:11→20:48)
[2023-10-17] MEDS ORDERED: LOSARTAN 50MG TABLET PO SCH (09:00)
[2023-10-17] MEDS: DULoxetine 30MG CAPSULE (CYMBALTA) PO SCH ×2 (09:03→20:57)
[2023-10-17] MEDS: DIVALPROEX 500 MG TAB PO SCH ×2 (09:03→20:58)
[2023-10-17] MEDS: OMEPRAZOLE 20MG CAP PO SCH ×2 (09:03→20:58)
[2023-10-17 09:27] LABS: CHOLESTEROL LEVEL 104 MG/DL (<200); CHOLESTEROL RISK RATIO 2.43 (<5); HDL CHOLESTEROL 42.7 MG/DL (>40); LDL CHOLESTEROL 47.1 MG/DL (<100); MAGNESIUM LEVEL 1.8 MG/DL (1.8-2.4); NON-HDL-C 61.3 MG/DL; TRIGLYCERIDES LEVEL 71 MG/DL (<150)
[2023-10-17] MEDS ORDERED: POTASSIUM CHLORIDE 10MEQ SR TABLET PO ONE (10:00)
[2023-10-17] MEDS ORDERED: carisoprodoL 350 MG TAB PO PRN (10:50)
[2023-10-17] MEDS: TAMSULOSIN 0.4 MG CAP PO SCH (13:47)
[2023-10-17] MEDS: bisoproloL fumarate 5 MG TAB PO SCH ×2 (13:47→20:58)
[2023-10-17] MEDS: MAGNESIUM OXIDE 400MG TAB (MAG-OX) PO SCH ×2 (13:47→20:59)
[2023-10-17] MEDS: predniSONE 5 MG TAB PO SCH (16:23)
[2023-10-17] MEDS: ASPIRIN 81MG ENTERIC TABLET PO SCH (16:23)
[2023-10-17] MEDS: GABAPENTIN 300 MG CAP PO SCH (20:58)
[2023-10-17] MEDS ORDERED: ATORVASTATIN 20 MG TAB PO SCH (21:00)
[2023-10-17] MEDS ORDERED: ACETAMINOPHEN 500 MG TAB PO ONE (21:00)
[2023-10-17] MEDS ORDERED: LOSARTAN 25 MG TAB PO SCH (21:00)
[2023-10-18 04:00] VITALS: BP 157/84; TEMP 97.4; O2SAT 99
[2023-10-18] MEDS ORDERED: POTASSIUM CHLORIDE 10MEQ SR TABLET PO ONE (07:15)
[2023-10-18] MEDS: INSULIN LISPRO (NovoLOG) PER UNIT SC SCH (07:30)
[2023-10-18 08:00] VITALS: BP 147/82; TEMP 97.7; O2SAT 98
[2023-10-18] MEDS: DULoxetine 30MG CAPSULE (CYMBALTA) PO SCH (08:08)
[2023-10-18] MEDS: ASPIRIN 81MG ENTERIC TABLET PO SCH (08:08)
[2023-10-18] MEDS: TAMSULOSIN 0.4 MG CAP PO SCH (08:08)
[2023-10-18 08:09] VITALS: BP 147/82
[2023-10-18] MEDS: OMEPRAZOLE 20MG CAP PO SCH (08:09)
[2023-10-18] MEDS: bisoproloL fumarate 5 MG TAB PO SCH (08:09)
[2023-10-18] MEDS: DIVALPROEX 500 MG TAB PO SCH (08:10)
[2023-10-18] MEDS: predniSONE 5 MG TAB PO SCH (08:10)
[2023-10-18] MEDS: MAGNESIUM OXIDE 400MG TAB (MAG-OX) PO SCH (08:11)
[2023-10-18] MEDS ORDERED: CYANOCOBALAMIN 500 MCG TAB PO SCH (09:00)
[2023-10-18] MEDS ORDERED: CLOPIDOGREL 75 MG TAB PO SCH (09:00)
[2023-10-18] MEDS ORDERED: LOSARTAN 50MG TABLET PO SCH (09:00)
[2023-10-18] MEDS ORDERED: PRED5TA PO (10:28)
[2023-10-18] MEDS ORDERED: LOSA50TA28 PO (10:28)
== END 2023-10-18 12:01 | disposition home or self-care (01) | DRG 45 ==
LOC: M ED 11:32 → M ED INP 13:36 → ENRESERV 14:51 → M ICU 15:47
PROVIDERS: ADMIT Internal Medicine Pulmonary Disease; ATTEND Internal Medicine Nephrology
DX: I63.9 Cerebral infarction, unspecified (principal); G81.91 Hemiplegia, unspecified affecting right dominant side; I48.0 Paroxysmal atrial fibrillation; I10 Essential (primary) hypertension; G43.709 Chronic migraine without aura, not intractable, without status migrainosus; K50.90 Crohn's disease, unspecified, without complications; E11.9 Type 2 diabetes mellitus without complications; E78.5 Hyperlipidemia, unspecified; G89.29 Other chronic pain; M54.9 Dorsalgia, unspecified; Z98.84 Bariatric surgery status; E87.6 Hypokalemia; M10.9 Gout, unspecified; F32.A Depression, unspecified; Z90.49 Acquired absence of other specified parts of digestive tract; R29.810 Facial weakness; N40.0 Benign prostatic hyperplasia without lower urinary tract symptoms; Z79.82 Long term (current) use of aspirin; Z79.02 Long term (current) use of antithrombotics/antiplatelets; Z79.84 Long term (current) use of oral hypoglycemic drugs; Z79.899 Other long term (current) drug therapy; Z88.7 Allergy status to serum and vaccine; I25.10 Atherosclerotic heart disease of native coronary artery without angina pectoris; Z95.5 Presence of coronary angioplasty implant and graft

== ENCOUNTER → 2023-11-26 | Outpatient (CLI) | payer BC ==
[~2023-11-26] MED LIST changes: +DICY20TA20 PO; +ONDA4TAB6 PO; +PRED5TA PO
== END ==
LOC: M PAIN 15:00
PROVIDERS: ATTEND Anesthesiology
DX: M54.6 Pain in thoracic spine (principal); M54.2 Cervicalgia; E11.9 Type 2 diabetes mellitus without complications; G43.909 Migraine, unspecified, not intractable, without status migrainosus; I48.0 Paroxysmal atrial fibrillation; I10 Essential (primary) hypertension; K21.9 Gastro-esophageal reflux disease without esophagitis; E78.00 Pure hypercholesterolemia, unspecified; Z79.02 Long term (current) use of antithrombotics/antiplatelets; Z79.84 Long term (current) use of oral hypoglycemic drugs; Z79.899 Other long term (current) drug therapy; Z79.85 Long-term (current) use of injectable non-insulin antidiabetic drugs; Z79.891 Long term (current) use of opiate analgesic; Z91.048 Other nonmedicinal substance allergy status

== ENCOUNTER → 2023-11-27 | Outpatient (REF) | payer BC ==
[2023-11-28 13:07] LABS: CHOLESTEROL RISK RATIO 2.97 (<5); HDL CHOLESTEROL 41.7 MG/DL (>40); LDL CHOLESTEROL 63.1 MG/DL (<100); NON-HDL-C 82.3 MG/DL
[2023-11-28 13:18] LABS: HEMOGLOBIN A1c 6.2 % (4.0-6.0)
== END ==
LOC: M LAB REF 12:48
PROVIDERS: ATTEND Internal Medicine
DX: E11.9 Type 2 diabetes mellitus without complications (principal); E78.5 Hyperlipidemia, unspecified

== ENCOUNTER → 2023-11-27 | Outpatient (CLI) | payer BC ==
[2023-11-27 12:06] LABS: HEMATOCRIT 38.2 % (42.0-52.0); MEAN CORPUSCULAR HEMOGLOBIN 32.7 pg (27.0-33.0); PLATELET COUNT, AUTOMATED 151 10^3/uL (150-450); RED BLOOD COUNT 3.98 10^6/uL (4.30-6.10); WHITE BLOOD COUNT 4.1 10^3/uL (4.0-10.0)
[2023-11-27 12:10] LABS: ERYTHROCYTE SEDIMENTATION RATE < 1 mm/hr (0-20)
[2023-11-27 12:31] LABS: C REACTIVE PROTEIN QUANTITATIV < 0.40 MG/DL (<1.0)
[2023-11-27 12:32] LABS: ALBUMIN 3.2 G/DL (3.2-5.2); ALKALINE PHOSPHATASE 68 U/L (46-116); ALT/SGPT 23 U/L (7.0-40); AST/SGOT 22 U/L (<34); BILIRUBIN,TOTAL 0.6 MG/DL (0.3-1.2); BLOOD UREA NITROGEN 11 MG/DL (9-23); CALCIUM LEVEL 8.4 MG/DL (8.5-10.1); CARBON DIOXIDE LEVEL 35 MMOL/L (20-31); CHLORIDE LEVEL 108 MMOL/L (98-107); CREATININE FOR GFR 0.74 MG/DL (0.70-1.30); GLOMERULAR FILTRATION RATE > 60.0 (>56); GLUCOSE, FASTING 162 MG/DL (60-100); POTASSIUM SERUM 3.3 MMOL/L (3.5-5.1); SODIUM LEVEL 144 MMOL/L (136-145); TOTAL PROTEIN 5.2 G/DL (5.7-8.2)
== END ==
LOC: M LAB 11:41
PROVIDERS: ATTEND Internal Medicine Gastroenterology
DX: R63.4 Abnormal weight loss (principal); K50.00 Crohn's disease of small intestine without complications; R19.7 Diarrhea, unspecified

== ENCOUNTER → 2023-12-04 | Outpatient (CLI) | payer BC | LOC: M PAIN 16:00 | PROVIDERS: ATTEND Anesthesiology | DX: M79.12 Myalgia of auxiliary muscles, head and neck (principal); M54.6 Pain in thoracic spine; M54.2 Cervicalgia; M79.18 Myalgia, other site; E11.9 Type 2 diabetes mellitus without complications; G43.909 Migraine, unspecified, not intractable, without status migrainosus; I48.0 Paroxysmal atrial fibrillation; I10 Essential (primary) hypertension; K21.9 Gastro-esophageal reflux disease without esophagitis; E78.00 Pure hypercholesterolemia, unspecified; Z79.02 Long term (current) use of antithrombotics/antiplatelets; Z79.82 Long term (current) use of aspirin; Z79.891 Long term (current) use of opiate analgesic; Z79.899 Other long term (current) drug therapy; Z91.048 Other nonmedicinal substance allergy status ==

== ENCOUNTER → 2023-12-09 | Outpatient (CLI) | payer BC ==
[~2023-12-09] MED LIST changes: +TRIAMCINOLONE ACETONIDE SUSP 40MG/ML 1ML VIAL As Ordered ONE
== END ==
LOC: M PAIN 11:00
PROVIDERS: ATTEND Anesthesiology
DX: M79.12 Myalgia of auxiliary muscles, head and neck (principal); M79.18 Myalgia, other site; E11.9 Type 2 diabetes mellitus without complications; I48.0 Paroxysmal atrial fibrillation; G43.909 Migraine, unspecified, not intractable, without status migrainosus; I10 Essential (primary) hypertension; K21.9 Gastro-esophageal reflux disease without esophagitis; E78.00 Pure hypercholesterolemia, unspecified; N52.9 Male erectile dysfunction, unspecified; N40.0 Benign prostatic hyperplasia without lower urinary tract symptoms; K50.90 Crohn's disease, unspecified, without complications; Z79.02 Long term (current) use of antithrombotics/antiplatelets; Z79.82 Long term (current) use of aspirin; Z79.85 Long-term (current) use of injectable non-insulin antidiabetic drugs; Z79.891 Long term (current) use of opiate analgesic; Z79.899 Other long term (current) drug therapy; Z91.048 Other nonmedicinal substance allergy status
CPT/HCPCS: 20552; J0665; J3301

== ENCOUNTER → 2023-12-10 | Outpatient (REF) | payer BC ==
[~2023-12-10] MED LIST changes: -TRIAMCINOLONE ACETONIDE SUSP 40MG/ML 1ML VIAL As Ordered ONE
== END ==
LOC: M LAB REF 15:47
PROVIDERS: ATTEND Surgery
DX: L72.0 Epidermal cyst (principal)

== ENCOUNTER → 2024-01-06 | Outpatient (CLI) | payer BC | LOC: M PAIN 15:30 | PROVIDERS: ATTEND Anesthesiology | DX: M50.10 Cervical disc disorder with radiculopathy, unspecified cervical region (principal); E11.9 Type 2 diabetes mellitus without complications; G43.909 Migraine, unspecified, not intractable, without status migrainosus; I48.0 Paroxysmal atrial fibrillation; I10 Essential (primary) hypertension; K21.9 Gastro-esophageal reflux disease without esophagitis; E78.00 Pure hypercholesterolemia, unspecified; N40.0 Benign prostatic hyperplasia without lower urinary tract symptoms; Z79.02 Long term (current) use of antithrombotics/antiplatelets; Z79.82 Long term (current) use of aspirin; Z79.891 Long term (current) use of opiate analgesic; Z79.899 Other long term (current) drug therapy; Z79.84 Long term (current) use of oral hypoglycemic drugs; Z91.048 Other nonmedicinal substance allergy status ==

== ENCOUNTER 2024-01-19 14:09 | Emergency (ER) | payer BC, MEDICARE, OTHER ==
[~2024-01-19] VITALS: Ht 177.8 cm; Wt 76.9 kg
[2024-01-19] MEDS ORDERED: ISOVUE-370 76% 100ML VIAL As Ordered ONE (14:33)
[2024-01-19 14:42] LABS: BASO % 0.5 % (0.0-1.0); EOS # 0.1 10^3/uL (0.0-0.5); EOS % 1.3 % (0.0-3.0); HEMATOCRIT 38.3 % (42.0-52.0); HEMOGLOBIN 13.1 g/dl (13.5-17.5); LYMPH # 0.6 10^3/uL (1.5-5.0); LYMPH % 14.7 % (24.0-44.0); MEAN CORPUSCULAR HEMOGLOBIN 33.2 pg (27.0-33.0); MEAN CORPUSCULAR HGB CONC 34.2 g/dl (32.0-36.5); MONO # 0.3 10^3/uL (0.0-0.8); MONO % 8.6 % (2.0-8.0); NEUTROPHILS # 2.9 10^3/uL (1.5-8.5); NEUTROPHILS % 74.6 % (36.0-66.0); PLATELET COUNT, AUTOMATED 159 10^3/uL (150-450); RED BLOOD COUNT 3.95 10^6/uL (4.30-6.10); WHITE BLOOD COUNT 3.8 10^3/uL (4.0-10.0)
[2024-01-19 14:49] LABS: ERYTHROCYTE SEDIMENTATION RATE < 1 mm/hr (0-20)
[2024-01-19 14:58] LABS: INR 1.09; PARTIAL THROMBOPLASTIN TIME 34.4 SECONDS (24.8-34.2); PROTHROMBIN TIME 13.7 SECONDS (12.5-14.5)
[2024-01-19 15:02] LABS: LIPASE 47 U/L (12-53)
[2024-01-19 15:03] LABS: C REACTIVE PROTEIN QUANTITATIV < 0.40 MG/DL (<1.0)
[2024-01-19 15:04] LABS: ALBUMIN 3.3 G/DL (3.2-5.2); ALKALINE PHOSPHATASE 66 U/L (46-116); ALT/SGPT 40 U/L (7.0-40); AST/SGOT 28 U/L (<34); BILIRUBIN,DIRECT 0.2 MG/DL (<0.4); BILIRUBIN,TOTAL 0.6 MG/DL (0.3-1.2); BLOOD UREA NITROGEN 16 MG/DL (9-23); CALCIUM LEVEL 8.8 MG/DL (8.5-10.1); CARBON DIOXIDE LEVEL 30 MMOL/L (20-31); CHLORIDE LEVEL 105 MMOL/L (98-107); CK-MB VALUE MASS < 1.0 NG/ML (<3.6); CREATININE FOR GFR 0.84 MG/DL (0.70-1.30); GLOMERULAR FILTRATION RATE > 60.0 (>56); GLUCOSE, FASTING 245 MG/DL (60-100); POTASSIUM SERUM 3.4 MMOL/L (3.5-5.1); SODIUM LEVEL 142 MMOL/L (136-145); TOTAL PROTEIN 5.5 G/DL (5.7-8.2)
[2024-01-19 15:06] LABS: THYROID STIMULATING HORMONE 1.559 uIU/ML (0.55-4.78)
[2024-01-19 15:07] LABS: FREE T4 1.03 NG/DL (0.89-1.76)
[2024-01-19 15:12] LABS: CPK CREATINE PHOSPHOKINASE 29 U/L (46-171); MB/CK RELATIVE INDEX 3.44 (< OR =4)
[2024-01-19] MEDS: METOCLOPRAMIDE INJ 10MG/2ML VIAL IV ONE (15:17)
[2024-01-19] MEDS: NS 1,000 ML IV ONE (15:17)
[2024-01-19] MEDS: KETOROLAC 30 MG/ML 1ML VIAL IV ONE (15:17)
[2024-01-19 15:19] LABS: RSV AMPLIFICATION NEGATIVE (NEGATIVE)
[2024-01-19 16:17] LABS: CK-MB VALUE MASS < 1.0 NG/ML (<3.6)
[2024-01-19 16:19] LABS: CPK CREATINE PHOSPHOKINASE 27 U/L (46-171)
[2024-01-19] MEDS: POTASSIUM CHLORIDE 10MEQ SR TABLET PO ONE (17:36)
[2024-01-19] MEDS: SUMAtriptan SUCCINATE 6MG/0.5ML VIAL SC ONE (17:37)
[2024-01-19] MEDS ORDERED: hydrALAZINE 20MG/ML 1ML VIAL IV ONE (18:05)
[2024-01-19] MEDS: LOSARTAN 50MG TABLET PO ONE (18:32)
[2024-01-19] MEDS: bisoproloL fumarate 10 MG TAB PO ONE (18:32)
[2024-01-19] MEDS: methylPREDNISolone 125MG 2ML VIAL IV ONE (19:20)
[2024-01-19] MEDS: TOPIRAMATE (TopAMAX) 25 MG TAB PO ONE (19:20)
[2024-01-19 19:30] VITALS: TEMP 97.8
[2024-01-19 19:55] VITALS: BP 189/81
[2024-01-19] MEDS: amLODIPine 5 MG TAB PO ONE (19:55)
[2024-01-19 20:00] VITALS: BP 175/83; O2SAT 99
[2024-01-19] MEDS ORDERED: NORV5TAB PO (20:10)
[2024-01-19] MEDS ORDERED: TOPA50TA8 PO (20:10)
== END 2024-01-19 20:30 | disposition home or self-care (01) ==
LOC: M ED 14:09 → EDBD 14:09 → M ED 20:30
DX: G43.111 Migraine with aura, intractable, with status migrainosus (principal); R07.9 Chest pain, unspecified; I25.119 Atherosclerotic heart disease of native coronary artery with unspecified angina pectoris; E11.9 Type 2 diabetes mellitus without complications; I48.91 Unspecified atrial fibrillation; R00.1 Bradycardia, unspecified; I25.2 Old myocardial infarction; Z88.7 Allergy status to serum and vaccine; Z91.048 Other nonmedicinal substance allergy status; Z79.899 Other long term (current) drug therapy; Z79.1 Long term (current) use of non-steroidal anti-inflammatories (NSAID); Z79.810 Long term (current) use of selective estrogen receptor modulators (SERMs); Z79.4 Long term (current) use of insulin
CPT/HCPCS: 70450; 70496; 70498; 70551; 71045; 80047; 80048; 80076; 82550; 82553; 83690; 83735; 83880; 84439; 84443; 84484; 85025; 85610; 85652; 85730; 86140; 87631; 93005; 93041; 94760; 96372; 96374; 96375; 99285; J1885; J2765; J2930; J3030; Q9967

== ENCOUNTER 2024-02-15 08:25 | Emergency (ER) | payer BC ==
[~2024-02-15] VITALS: Ht 170.2 cm; Wt 73.5 kg
[~2024-02-15 08:25] MED LIST changes: +NORV5TAB PO; +TOPA50TA8 PO
[2024-02-15 08:26] VITALS: BP 168/77; TEMP 97.3; O2SAT 100
[2024-02-15] MEDS ORDERED: AIMO70IN2 SQ (08:43)
[2024-02-15] MEDS: ACETAMINOPHEN 325 MG TAB PO ONE (10:23)
== END 2024-02-15 10:33 | disposition home or self-care (01) ==
LOC: M ED 08:25
DX: S43.421A Sprain of right rotator cuff capsule, initial encounter (principal); Y99.0 Civilian activity done for income or pay; Y92.9 Unspecified place or not applicable; Y93.9 Activity, unspecified; Z88.7 Allergy status to serum and vaccine; Z79.1 Long term (current) use of non-steroidal anti-inflammatories (NSAID); Z79.4 Long term (current) use of insulin; Z79.810 Long term (current) use of selective estrogen receptor modulators (SERMs); Z79.899 Other long term (current) drug therapy

== ENCOUNTER → 2024-03-05 | Outpatient (CLI) | payer BC | LOC: M PAIN 16:00 | PROVIDERS: ATTEND Anesthesiology | DX: M47.812 Spondylosis without myelopathy or radiculopathy, cervical region (principal); Z79.891 Long term (current) use of opiate analgesic; M54.6 Pain in thoracic spine; M47.814 Spondylosis without myelopathy or radiculopathy, thoracic region; E11.9 Type 2 diabetes mellitus without complications; G43.909 Migraine, unspecified, not intractable, without status migrainosus; I48.0 Paroxysmal atrial fibrillation; I10 Essential (primary) hypertension; K21.9 Gastro-esophageal reflux disease without esophagitis; E78.00 Pure hypercholesterolemia, unspecified; K50.90 Crohn's disease, unspecified, without complications; Z79.82 Long term (current) use of aspirin; Z79.84 Long term (current) use of oral hypoglycemic drugs; Z79.899 Other long term (current) drug therapy; Z91.048 Other nonmedicinal substance allergy status ==

== ENCOUNTER → 2024-04-23 | Outpatient (REF) | payer BC ==
[~2024-04-23] MED LIST changes: +ONDA-282 PO; +ONDA-284 PO; -ONDA4TAB6 PO; -ONDA8TAB8 PO
[2024-04-23 14:18] LABS: BLOOD UREA NITROGEN 18 MG/DL (9-23); CALCIUM LEVEL 9.2 MG/DL (8.5-10.1); CARBON DIOXIDE LEVEL 32 MMOL/L (20-31); CHLORIDE LEVEL 107 MMOL/L (98-107); CREATININE FOR GFR 0.84 MG/DL (0.70-1.30); GLOMERULAR FILTRATION RATE > 60.0 (>56); GLUCOSE, FASTING 163 MG/DL (60-100); POTASSIUM SERUM 3.8 MMOL/L (3.5-5.1); SODIUM LEVEL 144 MMOL/L (136-145)
== END ==
LOC: M LABWUC 13:13
PROVIDERS: ATTEND Internal Medicine Cardiovascular Disease
DX: I25.10 Atherosclerotic heart disease of native coronary artery without angina pectoris (principal); I48.0 Paroxysmal atrial fibrillation; I10 Essential (primary) hypertension

== ENCOUNTER → 2024-05-05 | Outpatient (CLI) | payer BC | LOC: M PAIN 09:00 | PROVIDERS: ATTEND Anesthesiology | DX: M50.10 Cervical disc disorder with radiculopathy, unspecified cervical region (principal); Z79.891 Long term (current) use of opiate analgesic; G89.29 Other chronic pain; E11.9 Type 2 diabetes mellitus without complications; G43.909 Migraine, unspecified, not intractable, without status migrainosus; I48.0 Paroxysmal atrial fibrillation; I10 Essential (primary) hypertension; K21.9 Gastro-esophageal reflux disease without esophagitis; N40.0 Benign prostatic hyperplasia without lower urinary tract symptoms; Z79.82 Long term (current) use of aspirin; Z79.899 Other long term (current) drug therapy; Z91.048 Other nonmedicinal substance allergy status ==

== ENCOUNTER 2024-05-31 17:58 | Emergency (ER) | payer BC ==
[~2024-05-31] VITALS: Ht 177.8 cm; Wt 70.5 kg
[2024-05-31] MEDS: ASPIRIN 81MG CHEW TABLET PO ONE (18:34)
[2024-05-31] MEDS: NITROGLYCERIN 0.4MG SUBL TABLET SL PRN (18:35)
[2024-05-31 18:43] LABS: BASO % 0.2 % (0.0-1.0); EOS % 0.9 % (0.0-3.0); HEMATOCRIT 39.7 % (42.0-52.0); HEMOGLOBIN 13.4 g/dl (13.5-17.5); LYMPH # 0.6 10^3/uL (1.5-5.0); MEAN CORPUSCULAR HEMOGLOBIN 31.2 pg (27.0-33.0); MEAN CORPUSCULAR HGB CONC 33.8 g/dl (32.0-36.5); MEAN CORPUSCULAR VOLUME 92.5 fl (80.0-96.0); MONO # 0.3 10^3/uL (0.0-0.8); MONO % 7.9 % (2.0-8.0); NEUTROPHILS # 3.2 10^3/uL (1.5-8.5); NEUTROPHILS % 75.8 % (36.0-66.0); PLATELET COUNT, AUTOMATED 183 10^3/uL (150-450); RED BLOOD COUNT 4.29 10^6/uL (4.30-6.10); WHITE BLOOD COUNT 4.3 10^3/uL (4.0-10.0)
[2024-05-31 18:56] VITALS: BP 130/74
[2024-05-31 18:57] LABS: INR 1.05; PARTIAL THROMBOPLASTIN TIME 33.3 SECONDS (24.8-34.2); PROTHROMBIN TIME 13.4 SECONDS (12.5-14.5)
[2024-05-31 19:07] LABS: LIPASE 40 U/L (12-53)
[2024-05-31 19:09] LABS: ALBUMIN 3.5 G/DL (3.2-5.2); ALKALINE PHOSPHATASE 94 U/L (46-116); ALT/SGPT 22 U/L (7.0-40); AST/SGOT 19 U/L (<34); BILIRUBIN,DIRECT 0.2 MG/DL (<0.4); BILIRUBIN,TOTAL 0.5 MG/DL (0.3-1.2); BLOOD UREA NITROGEN 17 MG/DL (9-23); CALCIUM LEVEL 9.1 MG/DL (8.5-10.1); CARBON DIOXIDE LEVEL 29 MMOL/L (20-31); CHLORIDE LEVEL 106 MMOL/L (98-107); CK-MB VALUE MASS < 1.0 NG/ML (<3.6); CPK CREATINE PHOSPHOKINASE 39 U/L (46-171); CREATININE FOR GFR 1.01 MG/DL (0.70-1.30); GLOMERULAR FILTRATION RATE > 60.0 (>56); GLUCOSE, FASTING 218 MG/DL (60-100); MB/CK RELATIVE INDEX 2.56 (< OR =4); POTASSIUM SERUM 3.7 MMOL/L (3.5-5.1); SODIUM LEVEL 142 MMOL/L (136-145); TOTAL PROTEIN 5.6 G/DL (5.7-8.2)
[2024-05-31] MEDS ORDERED: ATOG30TA PO (19:09)
[2024-05-31 19:11] LABS: FREE T4 1.04 NG/DL (0.89-1.76); THYROID STIMULATING HORMONE 0.403 uIU/ML (0.55-4.78)
[2024-05-31] MEDS ORDERED: ISOVUE-370 76% 100ML VIAL As Ordered ONE (19:21)
[2024-05-31 20:04] LABS: CK-MB VALUE MASS < 1.0 NG/ML (<3.6); CPK CREATINE PHOSPHOKINASE 39 U/L (46-171); MB/CK RELATIVE INDEX 2.56 (< OR =4)
[2024-05-31] MEDS: MORPHINE 2 MG/ML 1ML VIAL IV PRN (20:29)
[2024-05-31 21:12] LABS: CK-MB VALUE MASS < 1.0 NG/ML (<3.6)
[2024-05-31 21:19] LABS: CPK CREATINE PHOSPHOKINASE 37 U/L (46-171)
[2024-05-31 22:13] LABS: MAGNESIUM LEVEL 1.8 MG/DL (1.8-2.4)
[2024-05-31 22:14] LABS: CK-MB VALUE MASS < 1.0 NG/ML (<3.6)
[2024-05-31 22:15] LABS: CPK CREATINE PHOSPHOKINASE 34 U/L (46-171); MB/CK RELATIVE INDEX 2.94 (< OR =4)
[2024-05-31] MEDS ORDERED: HOLTER MONITOR XX (23:39)
[2024-05-31 23:45] VITALS: BP 142/83; TEMP 98.4; O2SAT 99
== END 2024-05-31 23:56 | disposition home or self-care (01) ==
LOC: M ED 17:58
DX: R07.9 Chest pain, unspecified (principal); I48.91 Unspecified atrial fibrillation; I25.2 Old myocardial infarction; I10 Essential (primary) hypertension; E78.5 Hyperlipidemia, unspecified; Z88.7 Allergy status to serum and vaccine; Z91.040 Latex allergy status; Z79.1 Long term (current) use of non-steroidal anti-inflammatories (NSAID); Z79.4 Long term (current) use of insulin; Z79.810 Long term (current) use of selective estrogen receptor modulators (SERMs); Z79.899 Other long term (current) drug therapy
CPT/HCPCS: 71045; 71275; 80047; 80048; 80076; 82550; 82553; 83690; 83735; 83880; 84439; 84443; 84484; 85025; 85610; 85730; 93005; 93041; 94760; 96374; 99291; Q9967

== ENCOUNTER → 2024-06-01 | Outpatient (CLI) | payer BC ==
[~2024-06-01] MED LIST changes: +ATOG30TA PO; +HOLTER MONITOR XX
== END ==
LOC: M EKG 11:06
PROVIDERS: ATTEND Emergency Medicine
DX: R00.2 Palpitations (principal)

== ENCOUNTER → 2024-06-10 | Outpatient (CLI) | payer BC | LOC: M PLARAD 08:07 | PROVIDERS: ATTEND Anesthesiology | DX: M50.10 Cervical disc disorder with radiculopathy, unspecified cervical region (principal); M47.892 Other spondylosis, cervical region ==

== ENCOUNTER → 2024-07-14 | Outpatient (CLI) | payer BC | LOC: M PAIN 09:15 | PROVIDERS: ATTEND Anesthesiology | DX: M50.10 Cervical disc disorder with radiculopathy, unspecified cervical region (principal); E11.9 Type 2 diabetes mellitus without complications; G43.909 Migraine, unspecified, not intractable, without status migrainosus; I48.0 Paroxysmal atrial fibrillation; I10 Essential (primary) hypertension; K21.9 Gastro-esophageal reflux disease without esophagitis; E78.00 Pure hypercholesterolemia, unspecified; N40.0 Benign prostatic hyperplasia without lower urinary tract symptoms; N52.9 Male erectile dysfunction, unspecified; K50.90 Crohn's disease, unspecified, without complications; I25.2 Old myocardial infarction; Z86.73 Personal history of transient ischemic attack (TIA), and cerebral infarction without residual deficits; Z79.82 Long term (current) use of aspirin; Z79.891 Long term (current) use of opiate analgesic; Z91.048 Other nonmedicinal substance allergy status ==

== ENCOUNTER → 2024-08-15 | Outpatient (REF) | payer BC ==
[~2024-08-15] MED LIST changes: +GABA-1172 PO; -GABA-282 PO
== END ==
LOC: M LAB REF 10:48
PROVIDERS: ATTEND Internal Medicine Gastroenterology
DX: K50.00 Crohn's disease of small intestine without complications (principal)

== ENCOUNTER → 2024-08-24 | Outpatient (CLI) | payer BC ==
[2024-08-24 11:07] LABS: ALBUMIN 3.3 G/DL (3.2-5.2); ALKALINE PHOSPHATASE 86 U/L (46-116); ALT/SGPT 33 U/L (7.0-40); AST/SGOT 47 U/L (<34); BILIRUBIN,TOTAL 0.6 MG/DL (0.3-1.2); BLOOD UREA NITROGEN 13 MG/DL (9-23); CALCIUM LEVEL 9.3 MG/DL (8.5-10.1); CARBON DIOXIDE LEVEL 33 MMOL/L (20-31); CHLORIDE LEVEL 106 MMOL/L (98-107); CREATININE FOR GFR 0.77 MG/DL (0.70-1.30); GLOMERULAR FILTRATION RATE > 60.0 (>56); GLUCOSE, FASTING 140 MG/DL (60-100); POTASSIUM SERUM 3.9 MMOL/L (3.5-5.1); SODIUM LEVEL 144 MMOL/L (136-145); TOTAL PROTEIN 5.7 G/DL (5.7-8.2)
== END ==
LOC: M LAB 09:32
PROVIDERS: ATTEND Internal Medicine Gastroenterology
DX: K50.00 Crohn's disease of small intestine without complications (principal); R10.84 Generalized abdominal pain

== ENCOUNTER → 2024-09-06 | Outpatient (CLI) | payer BC ==
[~2024-09-06] MED LIST changes: +GLUCAGON INJ 1MG VIAL As Ordered ONE; +ISOVUE-370 76% 100ML VIAL As Ordered ONE; +NEULUMEX 0.1% SUSPENSION 450ML BOTTLE (FORMERLY VOLUMEN) As Ordered ONE
== END ==
LOC: M RAD 09:46
PROVIDERS: ATTEND Internal Medicine Gastroenterology
DX: K50.00 Crohn's disease of small intestine without complications (principal); R10.84 Generalized abdominal pain
CPT/HCPCS: 74177; J1610; Q9967

== ENCOUNTER → 2024-09-07 | Outpatient (CLI) | payer BC ==
[~2024-09-07] MED LIST changes: -GLUCAGON INJ 1MG VIAL As Ordered ONE; -ISOVUE-370 76% 100ML VIAL As Ordered ONE; +ISOVUE-M 300 61% 15ML VIAL As Ordered ONE; +LIDOCAINE 1% SDV 30ML VIAL As Ordered ONE; -NEULUMEX 0.1% SUSPENSION 450ML BOTTLE (FORMERLY VOLUMEN) As Ordered ONE; +dexAMETHasone 10MG/1ML VIAL PRES.FREE As Ordered ONE; +diazePAM 5MG TABLET As Ordered ONE; +oxyCODONE 5MG TAB As Ordered ONE
== END ==
LOC: M PAIN 08:15
PROVIDERS: ATTEND Anesthesiology
DX: M50.13 Cervical disc disorder with radiculopathy, cervicothoracic region (principal); E11.9 Type 2 diabetes mellitus without complications; G43.909 Migraine, unspecified, not intractable, without status migrainosus; I48.0 Paroxysmal atrial fibrillation; I10 Essential (primary) hypertension; K21.9 Gastro-esophageal reflux disease without esophagitis; E78.00 Pure hypercholesterolemia, unspecified; N40.0 Benign prostatic hyperplasia without lower urinary tract symptoms; N52.9 Male erectile dysfunction, unspecified; K50.90 Crohn's disease, unspecified, without complications; I25.2 Old myocardial infarction; Z86.73 Personal history of transient ischemic attack (TIA), and cerebral infarction without residual deficits; Z79.82 Long term (current) use of aspirin; Z79.891 Long term (current) use of opiate analgesic; Z91.048 Other nonmedicinal substance allergy status
CPT/HCPCS: 62321; J1100; Q9967

== ENCOUNTER 2024-09-16 10:39 | Inpatient (IN) | payer BC ==
[~2024-09-16] VITALS: Ht 177.8 cm; Wt 74.1 kg
[~2024-09-16 10:39] MED LIST changes: -ISOVUE-M 300 61% 15ML VIAL As Ordered ONE; -LIDOCAINE 1% SDV 30ML VIAL As Ordered ONE; -dexAMETHasone 10MG/1ML VIAL PRES.FREE As Ordered ONE; -diazePAM 5MG TABLET As Ordered ONE; -oxyCODONE 5MG TAB As Ordered ONE
[2024-09-16 11:58] LABS: BASO % 0.4 % (0.0-1.0); EOS # 0.1 10^3/uL (0.0-0.5); HEMATOCRIT 42.6 % (42.0-52.0); HEMOGLOBIN 14.5 g/dl (13.5-17.5); LYMPH # 0.5 10^3/uL (1.5-5.0); LYMPH % 9.9 % (24.0-44.0); MEAN CORPUSCULAR HEMOGLOBIN 30.4 pg (27.0-33.0); MEAN CORPUSCULAR VOLUME 89.3 fl (80.0-96.0); MONO # 0.4 10^3/uL (0.0-0.8); MONO % 8.5 % (2.0-8.0); NEUTROPHILS # 3.9 10^3/uL (1.5-8.5); NEUTROPHILS % 79.8 % (36.0-66.0); PLATELET COUNT, AUTOMATED 164 10^3/uL (150-450); RED BLOOD COUNT 4.77 10^6/uL (4.30-6.10); WHITE BLOOD COUNT 4.9 10^3/uL (4.0-10.0)
[2024-09-16] MEDS: METOCLOPRAMIDE INJ 10MG/2ML VIAL IV ONE (12:03)
[2024-09-16] MEDS: MORPHINE 4 MG/ML 1ML VIAL IV ONE (12:03)
[2024-09-16 12:18] LABS: ALBUMIN 3.7 G/DL (3.2-5.2); BILIRUBIN,DIRECT 0.3 MG/DL (<0.4); BILIRUBIN,TOTAL 0.9 MG/DL (0.3-1.2); TOTAL PROTEIN 6.4 G/DL (5.7-8.2)
[2024-09-16 12:31] LABS: INR 0.96; PARTIAL THROMBOPLASTIN TIME 33.5 SECONDS (24.8-34.2); PROTHROMBIN TIME 13.1 SECONDS (12.5-14.5)
[2024-09-16] MEDS ORDERED: ISOVUE-370 76% 100ML VIAL As Ordered ONE (13:42)
[2024-09-16] MEDS: KETOROLAC 30 MG/ML 1ML VIAL IV ONE (14:43)
[2024-09-16] MEDS: HYDROMORPHONE HCL 0.5 MG/ 0.5 ML SYRINGE IV ONE (14:45)
[2024-09-16] MEDS ORDERED: ONDANSETRON 4MG 2ML VIAL IV PRN (16:55)
[2024-09-16] MEDS ORDERED: ACETAMINOPHEN 325 MG TAB PO PRN (16:55)
[2024-09-16] MEDS: NS 1,000 ML IV SCH (18:27)
[2024-09-16] MEDS ORDERED: ATOG60TA PO (18:28)
[2024-09-16] MEDS ORDERED: OMEP40CA5 PO (18:28)
[2024-09-16] MEDS ORDERED: MULT-40 PO (18:28)
[2024-09-16] MEDS ORDERED: BISO10TA14 PO (18:28)
[2024-09-16] MEDS ORDERED: GABA-1172 PO (18:28)
[2024-09-16] MEDS ORDERED: TRAZ1TAB10 PO (18:29)
[2024-09-16] MEDS ORDERED: HOME MED LIST COMPLETE! XX SCH (18:30)
[2024-09-16 18:34] VITALS: BP 149/92; TEMP 97.3; O2SAT 99
[2024-09-16] MEDS: MORPHINE 30 MG TAB **MSIR PO PRN (18:36)
[2024-09-16 20:00] VITALS: BP 151/92; TEMP 97.7; O2SAT 94
[2024-09-16] MEDS: DOCUSATE SODIUM 100MG CAPSULE PO SCH (21:50)
[2024-09-16] MEDS: KETOROLAC 30 MG/ML 1ML VIAL IV SCH (21:51)
[2024-09-16] MEDS ORDERED: carisoprodoL 350 MG TAB PO PRN (21:55)
[2024-09-16] MEDS: bisoproloL fumarate 10 MG TAB PO SCH (23:35)
[2024-09-17] VITALS (8 sets, daily range): BP systolic 138–150; BP diastolic 79–97; TEMP 96.8–97.9; O2SAT 91–97
[2024-09-17 05:55] LABS: BASO % 0.4 % (0.0-1.0); EOS # 0.1 10^3/uL (0.0-0.5); EOS % 1.6 % (0.0-3.0); HEMATOCRIT 38.6 % (42.0-52.0); LYMPH # 0.5 10^3/uL (1.5-5.0); LYMPH % 8.5 % (24.0-44.0); MEAN CORPUSCULAR HEMOGLOBIN 30.5 pg (27.0-33.0); MEAN CORPUSCULAR HGB CONC 33.7 g/dl (32.0-36.5); MEAN CORPUSCULAR VOLUME 90.6 fl (80.0-96.0); MONO # 0.5 10^3/uL (0.0-0.8); MONO % 8.3 % (2.0-8.0); NEUTROPHILS # 4.6 10^3/uL (1.5-8.5); NEUTROPHILS % 80.8 % (36.0-66.0); PLATELET COUNT, AUTOMATED 148 10^3/uL (150-450); RED BLOOD COUNT 4.26 10^6/uL (4.30-6.10); WHITE BLOOD COUNT 5.6 10^3/uL (4.0-10.0)
[2024-09-17 06:26] LABS: BLOOD UREA NITROGEN 16 MG/DL (9-23); CALCIUM LEVEL 8.2 MG/DL (8.3-10.6); CARBON DIOXIDE LEVEL 29 MMOL/L (20-31); CHLORIDE LEVEL 109 MMOL/L (98-107); CREATININE FOR GFR 0.72 MG/DL (0.70-1.30); GLOMERULAR FILTRATION RATE > 60.0 (>49); GLUCOSE, FASTING 139 MG/DL (74-106); POTASSIUM SERUM 3.5 MMOL/L (3.5-5.1); SODIUM LEVEL 143 MMOL/L (136-145)
[2024-09-17] MEDS: DULoxetine 30MG CAPSULE (CYMBALTA) PO SCH (08:16)
[2024-09-17] MEDS: GABAPENTIN 300 MG CAP PO SCH (08:16)
[2024-09-17] MEDS: DIVALPROEX 500 MG TAB PO SCH (08:16)
[2024-09-17] MEDS ORDERED: ACETAMINOPHEN 1000MG 100ML IV BAG As Ordered ONE (11:52)
[2024-09-17] MEDS ORDERED: propofoL 200 MG/20 ML VIAL As Ordered ONE (11:53)
[2024-09-17] MEDS ORDERED: dexmedeTOMIDine (4MCG/ML)200MCG/50ML BTL (PRECEDEX) As Ordered ONE (11:53)
[2024-09-17] MEDS ORDERED: LIDOCAINE 2% 100MG/5ML SDV (FOR ANES.) As Ordered ONE (11:53)
[2024-09-17] MEDS ORDERED: ONDANSETRON 4MG 2ML VIAL As Ordered ONE (11:53)
[2024-09-17] MEDS ORDERED: fentaNYL 100 MCG/2 ML INJECTION As Ordered ONE (11:55)
[2024-09-17] MEDS ORDERED: MIDAZOLAM INJ 2MG/2ML VIAL As Ordered ONE (11:55)
[2024-09-17] MEDS: ceFAZolin SOD 2 GM in IV 1 EA IV ONE (12:00)
[2024-09-17] MEDS: ceFAZolin 2 GM/D5W 50 ML IV BAG As Ordered ONE (12:31)
[2024-09-17] MEDS: ISOVUE-300 61% 100ML VIAL As Ordered ONE (12:45)
[2024-09-17] MEDS: LIDOCAINE 2% 5ML JELLY UROJET As Ordered ONE (12:45)
[2024-09-17] MEDS ORDERED: oxyCODONE 5MG TAB PO PRN (13:10)
[2024-09-17] MEDS ORDERED: ONDANSETRON 4MG 2ML VIAL IV PRN (13:10)
[2024-09-17] MEDS ORDERED: fentaNYL 100 MCG/2 ML INJECTION IV PRN (13:10)
[2024-09-17] MEDS ORDERED: HYDROMORPHONE HCL 0.5 MG/ 0.5 ML SYRINGE IV PRN (13:10)
[2024-09-17] MEDS: NS 1,000 ML IV SCH (13:10)
[2024-09-17] MEDS ORDERED: TAMSULOSIN 0.4 MG CAP PO SCH (21:00)
[2024-09-17] MEDS ORDERED: traZODone 50 MG TAB PO SCH (21:00)
== END 2024-09-17 18:06 | disposition home or self-care (01) | DRG 465 ==
LOC: M ED 10:39 → M ED INP 16:54 → M MSPAV 18:20
PROVIDERS: ADMIT Internal Medicine Nephrology; ATTEND Internal Medicine Nephrology
PROC: 0T778DZ Dilation of Left Ureter with Intraluminal Device, Via Natural or Artificial Opening Endoscopic (ICD-10-PCS; principal; 2024-09-17 12:45)
DX: N13.1 Hydronephrosis with ureteral stricture, not elsewhere classified (principal); G61.0 Guillain-Barre syndrome; K50.90 Crohn's disease, unspecified, without complications; I48.0 Paroxysmal atrial fibrillation; I10 Essential (primary) hypertension; G43.909 Migraine, unspecified, not intractable, without status migrainosus; I25.10 Atherosclerotic heart disease of native coronary artery without angina pectoris; E11.9 Type 2 diabetes mellitus without complications; E78.5 Hyperlipidemia, unspecified; K57.90 Diverticulosis of intestine, part unspecified, without perforation or abscess without bleeding; N40.0 Benign prostatic hyperplasia without lower urinary tract symptoms; N52.9 Male erectile dysfunction, unspecified; G89.29 Other chronic pain; K21.9 Gastro-esophageal reflux disease without esophagitis; Z98.84 Bariatric surgery status; Z95.5 Presence of coronary angioplasty implant and graft; Z86.73 Personal history of transient ischemic attack (TIA), and cerebral infarction without residual deficits; Z79.82 Long term (current) use of aspirin; Z79.899 Other long term (current) drug therapy; Z88.7 Allergy status to serum and vaccine; Z91.048 Other nonmedicinal substance allergy status; Z90.49 Acquired absence of other specified parts of digestive tract

== ENCOUNTER 2024-09-23 10:41 | Inpatient (IN) | payer BC ==
[~2024-09-23] VITALS: Ht 177.8 cm; Wt 73.8 kg
[~2024-09-23 10:41] MED LIST changes: +ATOG60TA PO; +BISO10TA14 PO; +MULT-40 PO; +OMEP40CA5 PO; +TRAZ1TAB10 PO
[2024-09-23 12:02] LABS: BASO % 0.7 % (0.0-1.0); EOS # 0.1 10^3/uL (0.0-0.5); EOS % 4.3 % (0.0-3.0); HEMATOCRIT 39.6 % (42.0-52.0); HEMOGLOBIN 13.2 g/dl (13.5-17.5); LYMPH # 0.7 10^3/uL (1.5-5.0); LYMPH % 24.8 % (24.0-44.0); MEAN CORPUSCULAR HEMOGLOBIN 29.9 pg (27.0-33.0); MEAN CORPUSCULAR HGB CONC 33.3 g/dl (32.0-36.5); MEAN CORPUSCULAR VOLUME 89.6 fl (80.0-96.0); MONO # 0.4 10^3/uL (0.0-0.8); MONO % 12.8 % (2.0-8.0); NEUTROPHILS # 1.6 10^3/uL (1.5-8.5); NEUTROPHILS % 56.7 % (36.0-66.0); PLATELET COUNT, AUTOMATED 149 10^3/uL (150-450); RED BLOOD COUNT 4.42 10^6/uL (4.30-6.10); WHITE BLOOD COUNT 2.8 10^3/uL (4.0-10.0)
[2024-09-23] MEDS: KETOROLAC 30 MG/ML 1ML VIAL IV ONE (12:05)
[2024-09-23 12:22] LABS: BLOOD UREA NITROGEN 18 MG/DL (9-23); CARBON DIOXIDE LEVEL 31 MMOL/L (20-31); CHLORIDE LEVEL 105 MMOL/L (98-107); CREATININE FOR GFR 0.76 MG/DL (0.70-1.30); GLOMERULAR FILTRATION RATE > 60.0 (>49); GLUCOSE, FASTING 297 MG/DL (74-106); POTASSIUM SERUM 3.2 MMOL/L (3.5-5.1); SODIUM LEVEL 140 MMOL/L (136-145)
[2024-09-23] MEDS: MORPHINE 4 MG/ML 1ML VIAL IV ONE ×2 (13:12→14:17)
[2024-09-23] MEDS: ONDANSETRON 4MG 2ML VIAL IV ONE (13:12)
[2024-09-23] MEDS ORDERED: GLUCOSE 4 GM CHEW PO PRN (14:00)
[2024-09-23] MEDS ORDERED: GLUCAGON INJ 1MG VIAL SC PRN (14:00)
[2024-09-23] MEDS ORDERED: NS 1,000 ML IV SCH (14:00)
[2024-09-23] MEDS ORDERED: DEXTROSE 50% 50ML SYRINGE IV PRN (14:00)
[2024-09-23] MEDS ORDERED: MORPHINE 4 MG/ML 1ML VIAL IV PRN (14:00)
[2024-09-23] MEDS ORDERED: ONDANSETRON 4MG 2ML VIAL IV PRN ×3 (14:05→17:45)
[2024-09-23] MEDS ORDERED: HOME MED LIST COMPLETE! XX SCH (14:15)
[2024-09-23] MEDS: hydrALAZINE 20MG/ML 1ML VIAL IV STA (14:22)
[2024-09-23] MEDS: METOPROLOL 5 MG/5 ML VIAL IV STA (14:26)
[2024-09-23] MEDS ORDERED: MORPHINE 2 MG/ML 1ML VIAL IV PRN (14:45)
[2024-09-23] MEDS ORDERED: fentaNYL 100 MCG/2 ML INJECTION IV PRN ×2 (14:45→17:45)
[2024-09-23] MEDS ORDERED: KCL 40MEQ in NS 1000ML 1,000 ML IV SCH (15:00)
[2024-09-23] MEDS ORDERED: propofoL 200 MG/20 ML VIAL As Ordered ONE (15:20)
[2024-09-23] MEDS ORDERED: ONDANSETRON 4MG 2ML VIAL As Ordered ONE (15:20)
[2024-09-23] MEDS ORDERED: LIDOCAINE 2% 100MG/5ML SDV (FOR ANES.) As Ordered ONE (15:20)
[2024-09-23] MEDS ORDERED: ROCURONIUM BROMIDE 50MG/5ML VIAL As Ordered ONE (15:20)
[2024-09-23] MEDS ORDERED: MIDAZOLAM INJ 2MG/2ML VIAL As Ordered ONE (15:21)
[2024-09-23] MEDS ORDERED: fentaNYL 100 MCG/2 ML INJECTION As Ordered ONE (15:21)
[2024-09-23] MEDS ORDERED: METOCLOPRAMIDE INJ 10MG/2ML VIAL As Ordered ONE (15:24)
[2024-09-23] MEDS: cefTRIAXone SOD 1GM VIAL As Ordered ONE (16:45)
[2024-09-23] MEDS ORDERED: SUGAMMADEX SODIUM 500 MG/5 ML VIAL (BRIDION) As Ordered ONE (17:05)
[2024-09-23] MEDS ORDERED: KETOROLAC 60MG 2ML VIAL As Ordered ONE (17:05)
[2024-09-23] MEDS: ISOVUE-300 61% 100ML VIAL As Ordered ONE (17:30)
[2024-09-23] MEDS: NS 1,000 ML IV SCH (17:45)
[2024-09-23] MEDS ORDERED: HYDROMORPHONE HCL 0.5 MG/ 0.5 ML SYRINGE IV PRN (17:45)
[2024-09-23] MEDS ORDERED: oxyCODONE 5MG TAB PO PRN (17:45)
[2024-09-23] MEDS: INSULIN LISPRO (NovoLOG) PER UNIT SC PRN (18:01)
[2024-09-23] MEDS ORDERED: NALOXONE INJ 0.4MG/1ML VIAL IV PRN (18:40)
[2024-09-23] MEDS ORDERED: PERCOCET 5MG/325MG TAB PO PRN ×2 (18:40)
[2024-09-23] MEDS ORDERED: carisoprodoL 350 MG TAB PO PRN (18:40)
[2024-09-23] MEDS ORDERED: ACETAMINOPHEN 325 MG TAB PO PRN (18:40)
[2024-09-23 18:53] VITALS: BP 157/85; TEMP 95.7; O2SAT 98
[2024-09-23] MEDS: cefTRIAXone SOD 1 GM in DEXTROSE 5% (D5W) ADV/MINI-BAG 50 ML IV SCH (18:53)
[2024-09-23 19:30] VITALS: BP 155/86; TEMP 95.7; O2SAT 98
[2024-09-23 20:00] VITALS: BP 148/81; TEMP 96.3; O2SAT 98
[2024-09-23] MEDS: INSULIN LISPRO (NovoLOG) PER UNIT SC SCH (20:17)
[2024-09-23] MEDS: bisoproloL fumarate 10 MG TAB PO SCH (20:22)
[2024-09-23] MEDS: LOSARTAN 50MG TABLET PO ONE (20:22)
[2024-09-23] MEDS: traZODone 50 MG TAB PO SCH (20:22)
[2024-09-23] MEDS: POTASSIUM CHLORIDE 10MEQ SR TABLET PO ONE (20:22)
[2024-09-23] MEDS: DIVALPROEX 500 MG TAB PO SCH (20:23)
[2024-09-23] MEDS: GABAPENTIN 300 MG CAP PO SCH (20:23)
[2024-09-23] MEDS: DULoxetine 30MG CAPSULE (CYMBALTA) PO SCH (20:24)
[2024-09-23] MEDS: PERCOCET 5MG/325MG TAB PO PRN (20:24)
[2024-09-23] MEDS: ATORVASTATIN 20 MG TAB PO SCH (20:24)
[2024-09-23 21:00] VITALS: BP 132/74; TEMP 96.2; O2SAT 98
[2024-09-23 22:00] VITALS: BP 116/62; TEMP 94.7; O2SAT 97
[2024-09-23 23:00] VITALS: BP 116/63; TEMP 96.3; O2SAT 97
[2024-09-24] VITALS: BP 116/63; TEMP 96.2; O2SAT 96
[2024-09-24 04:00] VITALS: BP 134/80; TEMP 95.7; O2SAT 98
[2024-09-24 06:09] LABS: BASO % 0.2 % (0.0-1.0); HEMATOCRIT 38.4 % (42.0-52.0); HEMOGLOBIN 13.1 g/dl (13.5-17.5); LYMPH # 0.3 10^3/uL (1.5-5.0); LYMPH % 4.5 % (24.0-44.0); MEAN CORPUSCULAR HEMOGLOBIN 30.2 pg (27.0-33.0); MEAN CORPUSCULAR HGB CONC 34.1 g/dl (32.0-36.5); MEAN CORPUSCULAR VOLUME 88.5 fl (80.0-96.0); MONO # 0.2 10^3/uL (0.0-0.8); MONO % 3.5 % (2.0-8.0); NEUTROPHILS # 6.1 10^3/uL (1.5-8.5); PLATELET COUNT, AUTOMATED 166 10^3/uL (150-450); RED BLOOD COUNT 4.34 10^6/uL (4.30-6.10); WHITE BLOOD COUNT 6.6 10^3/uL (4.0-10.0)
[2024-09-24 06:57] LABS: BLOOD UREA NITROGEN 26 MG/DL (9-23); CALCIUM LEVEL 8.9 MG/DL (8.3-10.6); CARBON DIOXIDE LEVEL 27 MMOL/L (20-31); CHLORIDE LEVEL 106 MMOL/L (98-107); GLOMERULAR FILTRATION RATE > 60.0 (>49); GLUCOSE, FASTING 245 MG/DL (74-106); POTASSIUM SERUM 4.6 MMOL/L (3.5-5.1); SODIUM LEVEL 141 MMOL/L (136-145)
[2024-09-24 07:46] VITALS: BP 124/73; TEMP 95.8; O2SAT 97
[2024-09-24] MEDS: INSULIN LISPRO (NovoLOG) PER UNIT SC SCH (08:31)
[2024-09-24 08:32] VITALS: BP 124/73
[2024-09-24] MEDS: TAMSULOSIN 0.4 MG CAP PO SCH (08:33)
[2024-09-24] MEDS: azaTHIOprine 10MG/ML SUSP *COMPOUNDED* 40ML BOTTLE PO SCH (08:33)
[2024-09-24] MEDS: SPIRONOLACTONE 25 MG TAB PO SCH (08:33)
[2024-09-24] MEDS: LOSARTAN 50MG TABLET PO SCH (08:34)
[2024-09-24] MEDS ORDERED: BACI1CAP PO (14:56)
[2024-09-24] MEDS ORDERED: CEFD300CAP PO (14:56)
[2024-09-25] MEDS ORDERED: CYANOCOBALAMIN 500 MCG TAB PO SCH (09:00)
== END 2024-09-24 11:00 | disposition home or self-care (01) | DRG 443 ==
LOC: M ED 10:41 → M ED INP 13:56 → M MSPAV 18:38
PROVIDERS: ADMIT General Practice; ATTEND General Practice
PROC: 0TC48ZZ Extirpation of Matter from Left Kidney Pelvis, Via Natural or Artificial Opening Endoscopic (ICD-10-PCS; 2024-09-23)
PROC: 0TP98DZ Removal of Intraluminal Device from Ureter, Via Natural or Artificial Opening Endoscopic (ICD-10-PCS; 2024-09-23)
PROC: 0T778DZ Dilation of Left Ureter with Intraluminal Device, Via Natural or Artificial Opening Endoscopic (ICD-10-PCS; 2024-09-23)
PROC: 0TC78ZZ Extirpation of Matter from Left Ureter, Via Natural or Artificial Opening Endoscopic (ICD-10-PCS; principal; 2024-09-23 14:30)
DX: N13.2 Hydronephrosis with renal and ureteral calculous obstruction (principal); E11.65 Type 2 diabetes mellitus with hyperglycemia; I48.0 Paroxysmal atrial fibrillation; I10 Essential (primary) hypertension; G43.909 Migraine, unspecified, not intractable, without status migrainosus; K50.90 Crohn's disease, unspecified, without complications; E78.5 Hyperlipidemia, unspecified; K57.90 Diverticulosis of intestine, part unspecified, without perforation or abscess without bleeding; N40.0 Benign prostatic hyperplasia without lower urinary tract symptoms; I25.10 Atherosclerotic heart disease of native coronary artery without angina pectoris; K21.9 Gastro-esophageal reflux disease without esophagitis; E87.6 Hypokalemia; N52.9 Male erectile dysfunction, unspecified; G89.29 Other chronic pain; I16.0 Hypertensive urgency; Z95.5 Presence of coronary angioplasty implant and graft; Z90.49 Acquired absence of other specified parts of digestive tract; Z98.84 Bariatric surgery status; Z96.0 Presence of urogenital implants; Z79.82 Long term (current) use of aspirin; Z86.73 Personal history of transient ischemic attack (TIA), and cerebral infarction without residual deficits; Z79.899 Other long term (current) drug therapy; Z88.7 Allergy status to serum and vaccine; Z91.048 Other nonmedicinal substance allergy status

== ENCOUNTER → 2024-10-20 | Outpatient (CLI) | payer BC ==
[~2024-10-20] MED LIST changes: +BACI1CAP PO; +CEFD300CAP PO
== END ==
LOC: M PAIN 09:15
PROVIDERS: ATTEND Anesthesiology
DX: M25.512 Pain in left shoulder (principal); M50.10 Cervical disc disorder with radiculopathy, unspecified cervical region; M79.10 Myalgia, unspecified site; M79.18 Myalgia, other site; G89.29 Other chronic pain; E11.9 Type 2 diabetes mellitus without complications; G43.909 Migraine, unspecified, not intractable, without status migrainosus; I48.0 Paroxysmal atrial fibrillation; I10 Essential (primary) hypertension; K21.9 Gastro-esophageal reflux disease without esophagitis; E78.00 Pure hypercholesterolemia, unspecified; N40.0 Benign prostatic hyperplasia without lower urinary tract symptoms; N52.9 Male erectile dysfunction, unspecified; Z79.82 Long term (current) use of aspirin; Z79.891 Long term (current) use of opiate analgesic; Z79.899 Other long term (current) drug therapy; Z91.048 Other nonmedicinal substance allergy status

== ENCOUNTER → 2024-10-29 | Outpatient (CLI) | payer BC ==
[~2024-10-29] MED LIST changes: +TRIAMCINOLONE ACETONIDE SUSP 40MG/ML 1ML VIAL As Ordered ONE
== END ==
LOC: M PAIN 16:30
PROVIDERS: ATTEND Anesthesiology
DX: M79.18 Myalgia, other site (principal); M25.512 Pain in left shoulder; M50.10 Cervical disc disorder with radiculopathy, unspecified cervical region; M79.10 Myalgia, unspecified site; G89.29 Other chronic pain; E11.9 Type 2 diabetes mellitus without complications; G43.909 Migraine, unspecified, not intractable, without status migrainosus; I48.0 Paroxysmal atrial fibrillation; I10 Essential (primary) hypertension; K21.9 Gastro-esophageal reflux disease without esophagitis; E78.00 Pure hypercholesterolemia, unspecified; N40.0 Benign prostatic hyperplasia without lower urinary tract symptoms; N52.9 Male erectile dysfunction, unspecified; Z79.82 Long term (current) use of aspirin; Z79.891 Long term (current) use of opiate analgesic; Z79.899 Other long term (current) drug therapy; Z91.048 Other nonmedicinal substance allergy status
CPT/HCPCS: 20552; J0665; J3301

== ENCOUNTER → 2024-11-09 | Outpatient (REF) | payer BC ==
[~2024-11-09] MED LIST changes: -TRIAMCINOLONE ACETONIDE SUSP 40MG/ML 1ML VIAL As Ordered ONE
== END ==
LOC: M LAB REF 21:00
PROVIDERS: ATTEND Nurse Practitioner Family
DX: R10.84 Generalized abdominal pain (principal); K50.00 Crohn's disease of small intestine without complications; R19.7 Diarrhea, unspecified

== ENCOUNTER → 2024-12-22 | Outpatient (CLI) | payer BC ==
[~2024-12-22] MED LIST changes: -CITRTAB10 PO; +CITRTAB11 PO
== END ==
LOC: M PAIN 15:30
PROVIDERS: ATTEND Anesthesiology
DX: M54.6 Pain in thoracic spine (principal); M47.812 Spondylosis without myelopathy or radiculopathy, cervical region; M25.512 Pain in left shoulder; E11.9 Type 2 diabetes mellitus without complications; I48.0 Paroxysmal atrial fibrillation; I10 Essential (primary) hypertension; K21.9 Gastro-esophageal reflux disease without esophagitis; E78.00 Pure hypercholesterolemia, unspecified; Z79.82 Long term (current) use of aspirin; Z79.891 Long term (current) use of opiate analgesic; Z79.899 Other long term (current) drug therapy

== ENCOUNTER → 2025-01-01 | Outpatient (CLI) | payer BC ==
[2025-01-01 10:13] LABS: HEMATOCRIT 39.9 % (42.0-52.0); HEMOGLOBIN 13.5 g/dl (13.5-17.5); MEAN CORPUSCULAR HEMOGLOBIN 31.3 pg (27.0-33.0); MEAN CORPUSCULAR HGB CONC 33.8 g/dl (32.0-36.5); MEAN CORPUSCULAR VOLUME 92.6 fl (80.0-96.0); PLATELET COUNT, AUTOMATED 153 10^3/uL (150-450); RED BLOOD COUNT 4.31 10^6/uL (4.30-6.10)
[2025-01-01 10:31] LABS: ERYTHROCYTE SEDIMENTATION RATE < 1 mm/hr (0-20)
[2025-01-01 10:43] LABS: ALBUMIN 3.3 G/DL (3.2-5.2); ALKALINE PHOSPHATASE 71 U/L (40-129); ALT/SGPT 20 U/L (7.0-40); AST/SGOT 18 U/L (<34); BILIRUBIN,TOTAL 0.8 MG/DL (0.3-1.2); BLOOD UREA NITROGEN 14 MG/DL (9-23); C REACTIVE PROTEIN QUANTITATIV < 0.50 MG/DL (<1.0); CALCIUM LEVEL 8.9 MG/DL (8.3-10.6); CARBON DIOXIDE LEVEL 33 MMOL/L (20-31); CHLORIDE LEVEL 107 MMOL/L (98-107); CREATININE FOR GFR 0.77 MG/DL (0.70-1.30); GLOMERULAR FILTRATION RATE > 60.0 (>49); GLUCOSE, FASTING 179 MG/DL (74-106); POTASSIUM SERUM 4.1 MMOL/L (3.5-5.1); SODIUM LEVEL 148 MMOL/L (136-145); TOTAL PROTEIN 5.5 G/DL (5.7-8.2)
[2025-01-04 13:27] LABS: QuantiFERON-TB Gold Plus NEGATIVE (NEGATIVE)
== END ==
LOC: M LAB 09:28
PROVIDERS: ATTEND Internal Medicine Gastroenterology
DX: K50.00 Crohn's disease of small intestine without complications (principal)

== ENCOUNTER → 2025-01-16 | Outpatient (CLI) | payer BC | LOC: M RAD 10:14 | PROVIDERS: ATTEND Nurse Practitioner Family | DX: M47.812 Spondylosis without myelopathy or radiculopathy, cervical region (principal) ==

== ENCOUNTER 2025-03-04 15:44 | Emergency (ER) | payer BC ==
[~2025-03-04] VITALS: Ht 177.8 cm; Wt 74.4 kg
[~2025-03-04 15:44] MED LIST changes: -FLOM0.4C39 PO; +TAMS-18 PO
[2025-03-04 16:10] VITALS: TEMP 98
[2025-03-04 16:16] LABS: BASO % 0.5 % (0.0-1.0); EOS % 0.7 % (0.0-3.0); HEMATOCRIT 39.7 % (42.0-52.0); HEMOGLOBIN 13.6 g/dl (13.5-17.5); LYMPH # 0.6 10^3/uL (1.5-5.0); LYMPH % 15.3 % (24.0-44.0); MEAN CORPUSCULAR HEMOGLOBIN 32.1 pg (27.0-33.0); MEAN CORPUSCULAR HGB CONC 34.3 g/dl (32.0-36.5); MEAN CORPUSCULAR VOLUME 93.6 fl (80.0-96.0); MONO # 0.3 10^3/uL (0.0-0.8); MONO % 7.4 % (2.0-8.0); NEUTROPHILS # 3.2 10^3/uL (1.5-8.5); NEUTROPHILS % 75.9 % (36.0-66.0); PLATELET COUNT, AUTOMATED 131 10^3/uL (150-450); RED BLOOD COUNT 4.24 10^6/uL (4.30-6.10); WHITE BLOOD COUNT 4.2 10^3/uL (4.0-10.0)
[2025-03-04 16:31] LABS: INR 0.93; PROTHROMBIN TIME 12.8 SECONDS (12.5-14.5)
[2025-03-04 16:37] LABS: LIPASE 45 U/L (12-53)
[2025-03-04 16:38] LABS: CPK CREATINE PHOSPHOKINASE 39 U/L (46-171)
[2025-03-04 16:39] LABS: ALBUMIN 3.5 G/DL (3.2-5.2); ALKALINE PHOSPHATASE 67 U/L (40-129); ALT/SGPT 25 U/L (7.0-40); AST/SGOT 22 U/L (<34); BILIRUBIN,DIRECT 0.3 MG/DL (<0.4); BILIRUBIN,TOTAL 0.6 MG/DL (0.3-1.2); CK-MB VALUE MASS < 1.0 NG/ML (<3.6); MB/CK RELATIVE INDEX 2.56 (< OR =4); TOTAL PROTEIN 5.7 G/DL (5.7-8.2)
[2025-03-04] MEDS ORDERED: NITROGLYCERIN 0.3MG SUBL TAB SL PRN (16:55)
[2025-03-04] MEDS ORDERED: NITROGLYCERIN 0.4MG SUBL TABLET As Ordered ONE (16:57)
[2025-03-04] MEDS: ASPIRIN 81MG CHEW TABLET PO ONE (16:59)
[2025-03-04] MEDS: NITROGLYCERIN 0.4MG SUBL TABLET SL PRN (17:06)
[2025-03-04] MEDS ORDERED: ISOVUE-370 76% 100ML VIAL As Ordered ONE (17:16)
[2025-03-04] MEDS: METOCLOPRAMIDE INJ 10MG/2ML VIAL IV ONE ×2 (17:37→20:38)
[2025-03-04] MEDS: KETOROLAC 30 MG/ML 1ML VIAL IV ONE ×2 (17:37→20:37)
[2025-03-04] MEDS: diphenhydrAMINE 50MG/ML VIAL IV ONE ×2 (17:37→20:38)
[2025-03-04 17:46] LABS: BLOOD UREA NITROGEN 14 MG/DL (9-23); CALCIUM LEVEL 8.6 MG/DL (8.3-10.6); CARBON DIOXIDE LEVEL 28 MMOL/L (20-31); CHLORIDE LEVEL 105 MMOL/L (98-107); CREATININE FOR GFR 0.68 MG/DL (0.70-1.30); GLOMERULAR FILTRATION RATE > 90.0 (>49); GLUCOSE, FASTING 202 MG/DL (74-106); POTASSIUM SERUM 3.3 MMOL/L (3.5-5.1); SODIUM LEVEL 142 MMOL/L (136-145)
[2025-03-04 20:30] VITALS: BP 105/56; O2SAT 96
[2025-03-04] MEDS: NS (Normal Saline) 0.9% 1,000 ML IV ONE (20:38)
== END 2025-03-04 22:37 | disposition home or self-care (01) ==
LOC: M ED 15:44
DX: R07.9 Chest pain, unspecified (principal); G43.909 Migraine, unspecified, not intractable, without status migrainosus; R00.1 Bradycardia, unspecified; I25.2 Old myocardial infarction; I48.91 Unspecified atrial fibrillation; I25.119 Atherosclerotic heart disease of native coronary artery with unspecified angina pectoris; E11.9 Type 2 diabetes mellitus without complications; E78.5 Hyperlipidemia, unspecified; N40.0 Benign prostatic hyperplasia without lower urinary tract symptoms; Z79.2 Long term (current) use of antibiotics; Z79.4 Long term (current) use of insulin; Z79.810 Long term (current) use of selective estrogen receptor modulators (SERMs); Z79.899 Other long term (current) drug therapy
CPT/HCPCS: 70450; 71045; 71275; 74177; 80047; 80048; 80076; 82550; 82553; 83690; 84484; 85025; 85610; 85730; 93005; 93041; 94760; 96361; 96374; 96375; 96376; 99285; J1200; J1885; J2765; Q9967

== ENCOUNTER → 2025-07-08 | Outpatient (CLI) | payer BC ==
[~2025-07-08] MED LIST changes: +DIVA-41 PO; -DIVA500T94 PO; -IBUP-1022 PO; +IBUP600T42 PO; +METF-1113 PO; -METF-723 PO; +SENN-225 PO; -SENO8.6T5 PO; -VITA500T17 PO; +VITA500T8 PO
[2025-07-08 15:28] LABS: PLATELET COUNT, AUTOMATED 151 10^3/uL (150-450)
[2025-07-08 15:52] LABS: ERYTHROCYTE SEDIMENTATION RATE < 1 mm/hr (0-20)
[2025-07-08 15:54] LABS: ALT/SGPT 25 U/L (7.0-40); AST/SGOT 33 U/L (<34); C REACTIVE PROTEIN QUANTITATIV < 0.50 MG/DL (<1.0); CALCIUM LEVEL 8.8 MG/DL (8.3-10.6); CARBON DIOXIDE LEVEL 31 MMOL/L (20-31); CHLORIDE LEVEL 104 MMOL/L (98-107); CREATININE FOR GFR 0.80 MG/DL (0.70-1.30); GLOMERULAR FILTRATION RATE > 90.0 (>49); POTASSIUM SERUM 3.8 MMOL/L (3.5-5.1); SODIUM LEVEL 143 MMOL/L (136-145)
== END ==
LOC: M LAB 14:59
PROVIDERS: ATTEND Internal Medicine Gastroenterology
DX: K52.9 Noninfective gastroenteritis and colitis, unspecified (principal); K50.00 Crohn's disease of small intestine without complications

== ENCOUNTER → 2025-07-13 | Outpatient (CLI) | payer BC ==
[2025-07-13 13:07] LABS: IRON (FE) 89.0 UG/DL (65-175); PERCENT SATURATION 31.4 % (19.7-50.0)
[2025-07-13 13:08] LABS: TOTAL 25(OH) VITAMIN D 44.8 NG/ML (20.0-100.0); VITAMIN B12 LEVEL 732.0 PG/ML (211-911)
== END ==
LOC: M WUC 08:10
PROVIDERS: ATTEND Internal Medicine Gastroenterology
DX: K50.00 Crohn's disease of small intestine without complications (principal)

== ENCOUNTER → 2025-07-17 | Outpatient (CLI) | payer BC ==
[~2025-07-17] MED LIST changes: -METF-1113 PO; +METF-1201 PO
== END ==
LOC: M LAB 13:06 → M RAD 13:06
PROVIDERS: ATTEND Internal Medicine Gastroenterology
DX: R06.2 Wheezing (principal); R53.83 Other fatigue; K50.00 Crohn's disease of small intestine without complications; R19.7 Diarrhea, unspecified; K21.9 Gastro-esophageal reflux disease without esophagitis

== ENCOUNTER → 2025-07-18 | Outpatient (REF) | payer BC ==
[~2025-07-18] MED LIST changes: +METF-1113 PO; -METF-1201 PO
== END ==
LOC: M LAB REF 17:44
PROVIDERS: ATTEND Internal Medicine
DX: S71.102A Unspecified open wound, left thigh, initial encounter (principal); X58.XXXA Exposure to other specified factors, initial encounter; Y92.9 Unspecified place or not applicable; Y93.9 Activity, unspecified; Y99.9 Unspecified external cause status

== ENCOUNTER → 2025-09-18 | Outpatient (REF) | payer BC ==
[~2025-09-18] MED LIST changes: -METF-1113 PO; +METF-1201 PO
== END ==
LOC: M LAB REF 12:00
PROVIDERS: ATTEND Physician Assistant
DX: J06.9 Acute upper respiratory infection, unspecified (principal)

== ENCOUNTER → 2025-11-06 | Outpatient (REF) | payer BC | LOC: M LAB REF 17:12 | PROVIDERS: ATTEND Registered Nurse | DX: L03.011 Cellulitis of right finger (principal) ==